=== PATIENT | male | born 1935 | race Caucasian/White ===

== ENCOUNTER 2018-09-06 17:06 | Observation (INO) | payer OTHER ==
--- OUTSIDE RECORDS SUMMARY | 2018-09-06 17:08 | XMS REPORT | Clinical Summary ---
:1935 Author Organization [facility] Address [address] [place] [address] Care Team Providers Name Role Phone Donald Bhatia MD Primary Care Provider Allergies Active Allergy Reactions Severity Noted Date Comments Fluorescein Hives, Itching 05/02/2016 High blood pressure Iodine Itching 05/02/2016 Medications Medication Sig Dispensed Refills Start Date End Date Status clopidogrel (PLAVIX) Take 75 mg by 0 Active 75 mg tablet mouth daily. aspirin (ECOTRIN) 81 Take 81 mg by 0 Active MG enteric coated mouth daily. tablet valsartan (DIOVAN) Take 320 mg by 0 Active 320 MG tablet mouth daily. insulin GLARGINE Inject 36 Units 0 Active (LANTUS) 100 unit/mL under the skin injection daily. amLODIPine (NORVASC) Take 1 tablet (5 30 tablet 11 03/11/2017 03/11/2018 5 mg tablet mg total) by mouth daily. Active Problems Problem Noted Date PVD (peripheral vascular disease) 02/13/2017 Claudication 02/13/2017 Essential hypertension 02/13/2017 Osteoarthritis of both knees 02/13/2017 Mixed hyperlipidemia 02/13/2017 Encounters Date Type Specialty Care Team Description 11/04/2017 Hospital Encounter Radiology after 09/05/2017 Social History Tobacco Use Types Packs/Day Years Used Date Former Smoker Cigarettes 3 50 Quit: 1987 Alcohol Use Drinks/Week oz/Week Comments Yes rare- beer and bourbon Sex Assigned at Date Recorded Not on file Job Start Date Occupation Industry Not on file Not on file Not on file Travel History Travel Start Travel End No recent travel history available. Last Filed Vital Signs Not on file Plan of Treatment Health Maintenance Due Date Last Done Comments SHINGLES VACCINES (1 of 2) 1985 PNEUMOCOCCAL POLYSACCHARIDE VACCINE AGE 65 AND OVER 2000 PNEUMOCOCCAL-13 2000 INFLUENZA VACCINE 03/04/2018 Implants Implanted Type Area Kennel Supervisor Device Shelf Model / Identifier Expiration Serial / Date Lot Silicone Sleeve, Style 70 / [id number], Sterile Ophthalmic N/A: LEBANESE 2020 [id number] / Implanted: Qty: 1 on 05/02/2016 by Donald Mortensen MD Knives & N/A OPHTHALMIC / Accessories [employer] [id number] (D.O.R.C) Strip Opthalmic Wide [employer]vd [employer] Sld Yaz 3.5mm - [id number] Surgical Left: LABTICIAN 09/02/2022 [id number] / Implanted: Qty: 1 on 05/02/2016 by Donald Mortensen MD Implants; Eye / Expanders; Extenders; Surgical Wires Particle H[employer] Absrbl Isabel 5gm Mph - [id number] Surgical N/A: MEDAFOR [id number] / Implanted: 02/25/2017 (Quantity not on file) Implants; N/A / Expanders; [id number] Extenders; Surgical Wires [place] Perph Vasclr Ptfe 1.2x10cm 1.65mm - [id number] Vascular Graft N/A: BARD PERIPHERAL 08/31/2021 [id number] / Implanted: 02/25/2017 (Quantity not on file) N/A VASCULAR / [id number] Results Not on fileafter 09/05/2017 Insurance Payer Benefit Plan / Group Subscriber ID Type Phone Address MEDICARE MEDICARE PART A AND B xxxxxxxxxx Medicare [place], [place] COMMERCIAL MISC MISC COMMERCIAL xxxxxxxxx Commercial (Home) [place] [address] Advance Directives Patient has advance care planning documents on file. For more information, please contact:[place] [address]
--- NOTE | 2018-09-06 17:56 | RAD REPORT ---
EXAM DESCRIPTION: RAD - Chest Single View - 09/06/2018 5:41 pm CLINICAL HISTORY: FEVER Chest pain. COMPARISON: No comparisons FINDINGS: Portable technique limits examination quality. Mildly prominent interstitial lung markings are seen. No focal consolidation detected. The heart is u pper limit of normal in size. No displaced fractures.Left shoulder arthroplasty noted. IMPRESSION: No acute intrathoracic process suspected.
[2018-09-06] MEDS ORDERED: IBUPROFEN 400 MG TAB ONE (18:24)
[2018-09-06] MEDS ORDERED: IBUPROFEN 200 MG TAB PO ONE (18:24)
[2018-09-06 18:36] LABS: Absolute Monocytes 0.8 K/uL (0.1-1.3); Absolute Neutrophil 8.3 K/uL (1.8-8.0); Basophils % 0.3 % (0-1.3); Eosinophils % 0.4 % (0-4.4); Hematocrit 48.5 % (39.6-49.0); Lymphocytes % 18.1 % (15.3-44.8); MPV 8.4 fL (7.6-11.3); Monocytes % 7.3 % (3.3-12.3); RBC Red Blood Cell Count 5.23 M/uL (4.33-5.43)
[2018-09-06 18:39] LABS: Protime INR 1.06
[2018-09-06] MEDS ORDERED: NA CHLORIDE 0.9% 1,000 ML ONE (18:43)
[2018-09-06 18:52] LABS: ALT/SGPT 19 U/L (12-78); AST/SGOT 14 U/L (15-37); Albumin 3.8 g/dL (3.4-5.0); Alkaline Phosphatase 91 U/L (45-117); BUN Blood Urea Nitrogen 10 mg/dL (7-18); Bicarbonate 29 mmol/L (21-32); Bilirubin Direct 0.3 mg/dL (0-0.2); CKMB Creatine Kinase MB < 1.0 ng/mL (0.3-3.6); Creatine Phosphokinase 53 U/L (39-308); Glucose Level 177 mg/dL (74-106); Lipase 36 U/L (73-393); Potassium 3.8 mmol/L (3.5-5.1); Protein, Total 7.6 g/dL (6.4-8.2); Sodium Level 136 mmol/L (136-145); Troponin (Emerg Dept Use Only) 0.02 ng/mL (0.0-0.045)
[2018-09-06 19:33] LABS: Urine Bacteria <20 /HPF (NONE SEEN); Urine Mucus MOD /HPF (NONE SEEN)
[2018-09-06 19:34] LABS: Urine Culture Reflex Order NOT NEEDED
[2018-09-06] MEDS ORDERED: NA CHLORIDE 0.9% 2,000 ML ONE (20:06)
[2018-09-06] MEDS ORDERED: CEFTRIAXONE/SWI 1gm 1 GM/10 ML SYR ONE (20:06)
[2018-09-06 20:36] LABS: Urine Blood 1+ (NEG); Urine Glucose NEGATIVE (NEG); Urine Protein 2+ (NEG)
--- NOTE | 2018-09-06 21:03 | ER ---
Nurse's Notes [facility] Name: Irineo Goldman Age: 82 yrs Sex: Male : 1935 Arrival Date: 09/06/2018 Time: 17:10 Bed 13 Private MD: Santiago Simpson T Diagnosis: Dehydration;Fever, unspecified;Acute streptococcal tonsillitis, unspecified;Altered mental status, unspecified Presentation: 09/06 17:20 Presenting complaint: states: headache, nausea, fever up to 100.3 F, frequent aa5 urination, cough, and confusion since last night. Pt currently A \\T\\ o x 4. Pt's daughter reports taking 1000mg Tylenol today at 1400. 17:20 Transition of care: patient was not received from another setting of care. Onset of aa5 symptoms was September 06, 2018. Risk Assessment: Do you want to hurt yourself or someone else? Patient reports no desire to harm self or others. Initial Sepsis Screen: Does the patient meet any 2 criteria? Temp <36.0*C (96.8*F)) or > 38.3*C (100.9*F). Altered Mental Status. Yes Does the patient have a suspected source of infection? Yes:. Care prior to arrival: None. 17:20 Method Of Arrival: Wheelchair aa5 17:20 Acuity: JESSIE 2 aa5 Triage Assessment: 18:02 General: Appears. ls4 18:10 Headache History: Denies prior headaches. General: Behavior is calm, cooperative. ls4 18:19 Pain: Pain currently is 8 out of 10 on a pain scale. Pain began THIS MORNING Also ls4 complains of no other associated symptoms. Neuro: Level of Consciousness is awake, alert, obeys commands, Oriented to person, place, time, situation, Representative are equal bilaterally Moves all extremities. Gait is steady, Speech is normal, Facial symmetry appears normal, Pupils are PERRLA, Reports headache frontal area, Denies weakness blurred vision dizziness, difficulty swallowing, paresthesias numbness photophobia diplopia. Cardiovascular: Denies chest pain, diaphoresis, fatigue, lightheadedness, nausea, palpitations, shortness of breath, syncope, vomiting. Respiratory: Reports cough that is non-productive, dry, Trachea midline Breath sounds are clear bilaterally. : Reports urinary frequency, since THIS MORNING. Musculoskeletal: No deficits noted. Historical: - Allergies: 17:22 Iodine; aa5 - PMHx: 17:22 Diabetes - IDDM; High Cholesterol; Hypertension; CVA; aa5 - PSHx: 17:22 L shoulder replacement; bilateral knee replacement; "vein surgery" R leg; aa5 - Immunization history:: Adult Immunizations unknown. - Ebola Screening: : No symptoms or risks identified at this time. - Social history:: Smoking status: Patient/guardian denies using tobacco. Screenin:55 Abuse screen: Denies threats or abuse. Denies injuries from another. Nutritional ls4 screening: No deficits noted. Tuberculosis screening: No symptoms or risk factors identified. Fall Risk None identified. Assessment: 18:22 General: SEE TRIAGE ASSESSMENT . Pain: Complains of pain in top of head Pain currently ls4 is 10 out of 10 on a pain scale. 21:26 Reassessment: Patient appears in no apparent distress at this time. Patient and/or ls4 family updated on plan of care and expected duration. Pain level reassessed. Patient is alert, oriented x 3, equal unlabored respirations, skin warm/dry/pink. Patient states symptoms have improved. Vital Signs: 17:29 BP 160 / 83; Pulse 101; Resp 18 S; Temp 101.3(TE); Pulse Ox 93% on R/A; Weight 100.7 kg aa5 (R); Pain 10/10; 18:38 BP 165 / 72; Pulse 78; Resp 16; Temp 100.1(O); Pulse Ox 98% on R/A; Pain 10/10; ls4 18:38 BP 168 / 89; Pulse 72; Resp 18; Temp 100.0; Pulse Ox 99% on R/A; Pain 10/10; ls4 21:25 BP 162 / 95; Pulse 73; Resp 16; Temp 99.9; Pulse Ox 100% on R/A; Pain 9/10; ls4 ED Course: 17:10 Patient arrived in ED. mr 17:10 Sanitago Simpson MD is Private Physician. mr 17:27 Arm band placed on. aa5 17:29 Triage completed. aa5 17:32 [facility] jr8 17:32 Rick Romeo MD is Attending Physician. jr8 17:40 Chest Single View XRAY In Process Unspecified. EDMS 17:50 Liliam Ceja, RN is Primary Nurse. ls4 18:10 No provider procedures requiring assistance completed. ls4 18:30 Initial lab(s) drawn, by me, sent to lab. First set of blood cultures drawn by me, mh5 Second set of blood cultures drawn by me, Urine collected: clean catch specimen, cloudy. 18:42 Patient has correct armband on for positive identification. Fall risk band placed. ls4 Placed in gown. Bed in low position. Side rails up X 1. monitoring analyst on. Pulse ox on. NIBP on. Pillow given. 18:42 Inserted saline lock: 20 gauge in left antecubital area, using aseptic technique. ls4 18:43 Inserted saline lock: 20 gauge in left antecubital area, using aseptic technique. Blood mh5 collected. 18:44 Patient has correct armband on for positive identification. Fall risk band placed. mh5 Placed in gown. Bed in low position. Call light in reach. Side rails up X2. Adult w/ patient. Pillow given. monitoring analyst on. Pulse ox on. NIBP on. 18:44 Flu Sent. mh5 18:44 Protime (+INR) Sent. mh5 18:44 Procalcitonin Sent. mh5 18:44 Lipase Sent. mh5 18:45 Liver (Hepatic) Function Sent. mh5 18:45 Creatine Phosphokinase Sent. mh5 18:45 Lactate Sent. mh5 18:45 CKMB Creatine Kinase MB Sent. mh5 18:45 CBC with Automated Diff Sent. mh5 18:45 Blood Culture Sent. mh5 18:45 Basic Metabolic Panel Sent. mh5 18:45 Urine Culture Sent. mh5 18:45 Urine Culture Sent. mh5 18:45 Basic Metabolic Panel Sent. mh5 18:45 Blood Culture Adult (2) Sent. 5 18:46 CBC with Diff Sent. mh5 18:46 Ckmb Sent. mh5 18:46 CPK Sent. mh5 18:46 Lactate Sent. mh5 18:46 LFT's Sent. mh5 18:46 Lipase Sent. mh5 18:46 Procalcitonin Sent. mh5 18:46 Protime (+inr) Sent. mh5 18:46 Troponin (emerg Dept Use Only) Sent. mh5 18:46 Urine Microscopic Only Sent. mh5 20:50 CT Head Brain wo Cont In Process Unspecified. EDMS 21:02 Cassandra Rodriguez MD is Hospitalizing Provider. jr8 22:26 Patient admitted, IV remains in place. ak1 Administered Medications: 18:18 Drug: Ibuprofen 600 mg Route: PO; ls4 18:40 Follow up: Response: No adverse reaction; No change in condition ls4 18:41 Drug: NS 0.9% (30 ml/kg) 30 ml/kg Route: IV; Rate: bolus; Site: left antecubital; ls4 22:24 Follow up: IV Status: Infusion continued upon admission ak1 19:56 Drug: Rocephin 1 grams Route: IV; Rate: calculated rate; Site: left antecubital; ls4 20:16 Follow up: IV Status: Completed infusion; IV Intake: 10ml ls4 21:12 Drug: Augmentin 875 mg Route: PO; ls4 22:24 Follow up: Response: No adverse reaction ak1 Point of Care Testing: Blood Glucose: 17:32 Blood Glucose: 184 mg/dL; aa5 Ranges: Intake: 20:16 IV: 10ml; Total: 10ml. ls4 Outcome: 21:02 Decision to Hospitalize by Provider. jr8 22:24 Admitted to Tele accompanied by nurse, via wheelchair, room 403, with chart. ak1 22:24 Condition: stable 22:24 Instructed on the need for admit. 23:09 Patient left the ED. ak1 Signatures: Dispatcher [employer] [facility] GautamMichelle mr KwongMaru RN RN [email or web address] Og Glez PA PA jr8 Randa Dallas RN RN ak1 Shana Velázquez Liliam Ferrer RN RN ls4 Corrections: (The following items were deleted from the chart) 17:32 17:20 Presenting complaint: states: headache, nausea, fever up to 100.3 F, aa5 frequent urination, cough, and confusion since last night. aa5 20:02 18:38 BP 165 / 72; Pulse 78bpm; Resp 16bpm; Pulse Ox 98% RA; Temp 98.4F Oral; Pain ls4 05/13; ls4
--- NOTE | 2018-09-06 21:03 | EDPHYS ---
Physician Documentation [facility] Name: Irieno Goldman Age: 82 yrs Sex: Male : 1935 Arrival Date: 09/06/2018 Time: 17:10 Bed 13 Private MD: Santiago Simpson T ED Physician Rick Romeo HPI: 09/06 18:02 This 82 yrs old Male presents to ER via Wheelchair with complaints of Fever, jr8 Headache, Urinary Problem, Confusion. 18:02 The patient reports fever, with an emergency department temperature of 101.3 degrees jr8 Fahrenheit. Onset: The symptoms/episode began/occurred acutely, yesterday, and became worse today, and became persistent today. Modifying factors: there are no obvious modifying factors. Associated signs and symptoms: Pertinent positives: cough, headache, frequency in urination, confusion . Severity of symptoms: At their worst the symptoms were moderate in the emergency department the symptoms have improved mildly. The patient has not experienced similar symptoms in the past. The patient has not recently seen a physician. Patient stated that he had fever that started yesterday and cough. Family stated that he has been using the bathroom to urinate about every 30 minutes. Has been trying to go to the garage to use the bathroom. Normally not confused. Denies abdominal pain, n/v/d, shortness of breath, or chest pain. Headache currently . Historical: - Allergies: 17:22 Iodine; aa5 - PMHx: 17:22 Diabetes - IDDM; High Cholesterol; Hypertension; CVA; aa5 - PSHx: 17:22 L shoulder replacement; bilateral knee replacement; "vein surgery" R leg; aa5 - Immunization history:: Adult Immunizations unknown. - Ebola Screening: : No symptoms or risks identified at this time. - Social history:: Smoking status: Patient/guardian denies using tobacco. ROS: 18:02 Eyes: Negative for injury, pain, redness, and discharge, ENT: Negative for injury, jr8 pain, and discharge, Neck: Negative for injury, pain, and swelling, Cardiovascular: Negative for chest pain, palpitations, and edema, Abdomen/GI: Negative for abdominal pain, nausea, vomiting, diarrhea, and constipation, Back: Negative for injury and pain, MS/Extremity: Negative for injury and deformity, Skin: Negative for injury, rash, and discoloration. 18:02 Constitutional: Positive for fever. 18:02 Respiratory: Positive for cough, Negative for dyspnea on exertion, shortness of breath, sputum production, wheezing. 18:02 Neuro: Positive for altered mental status, headache. Exam: 18:02 Eyes: Pupils equal round and reactive to light, extra-ocular motions intact. Lids and jr8 lashes normal. Conjunctiva and sclera are non-icteric and not injected. Cornea within normal limits. Periorbital areas with no swelling, redness, or edema. ENT: Nares patent. No nasal discharge, no septal abnormalities noted. Tympanic membranes are normal and external auditory canals are clear. Oropharynx with no redness, swelling, or masses, exudates, or evidence of obstruction, uvula midline. Mucous membranes moist. Neck: Trachea midline, no thyromegaly or masses palpated, and no cervical lymphadenopathy. Supple, full range of motion without nuchal rigidity, or vertebral point tenderness. No Meningismus. Cardiovascular: Regular rate and rhythm with a normal S1 and S2. No gallops, murmurs, or rubs. Normal PMI, no JVD. No pulse deficits. Respiratory: Lungs have equal breath sounds bilaterally, clear to auscultation and percussion. No rales, rhonchi or wheezes noted. No increased work of breathing, no retractions or nasal flaring. Abdomen/GI: Soft, non-tender, with normal bowel sounds. No distension or tympany. No guarding or rebound. No evidence of tenderness throughout. Back: No spinal tenderness. No costovertebral tenderness. Full range of motion. Skin: Warm, dry with normal turgor. Normal color with no rashes, no lesions, and no evidence of cellulitis. MS/ Extremity: Pulses equal, no cyanosis. Neurovascular intact. Full, normal range of motion. Neuro: Awake and alert, GCS 15, oriented to person, place, time, and situation. Cranial nerves II-XII grossly intact. Motor strength 5/5 in all extremities. Sensory grossly intact. Vital Signs: 17:29 BP 160 / 83; Pulse 101; Resp 18 S; Temp 101.3(TE); Pulse Ox 93% on R/A; Weight 100.7 kg aa5 (R); Pain 10/10; 18:38 BP 165 / 72; Pulse 78; Resp 16; Temp 100.1(O); Pulse Ox 98% on R/A; Pain 10/10; ls4 18:38 BP 168 / 89; Pulse 72; Resp 18; Temp 100.0; Pulse Ox 99% on R/A; Pain 10/10; ls4 21:25 BP 162 / 95; Pulse 73; Resp 16; Temp 99.9; Pulse Ox 100% on R/A; Pain 9/10; ls4 MDM: 17:32 Patient medically screened. [facility] 20:57 Data reviewed: vital signs, nurses notes, lab test result(s), EKG, radiologic studies, [facility] CT scan, plain films. Data interpreted: Pulse oximetry: on room air is 99 %. Interpretation: normal. Counseling: I had a detailed discussion with the patient and/or guardian regarding: the historical points, exam findings, and any diagnostic results supporting the discharge/admit diagnosis, lab results, radiology results, the need for further work-up and treatment in the hospital. Response to treatment: the patient's symptoms have mildly improved after treatment. Physician consultation: Cassandra Rodriguez MD was called at 21:02, was contacted at 21:02, regarding admission, to the medical/surgical unit. consult, patient's condition, and will see patient. 09/06 17:33 Order name: Urine Culture [facility] 09/06 17:33 Order name: Basic Metabolic Panel [facility] 09/06 17:33 Order name: Blood Culture Adult (2) [facility] 09/06 17:33 Order name: CBC with Diff [facility] 09/06 17:33 Order name: Ckmb [facility] 09/06 17:33 Order name: CPK [facility] 09/06 17:33 Order name: Lactate [facility] 09/06 17:33 Order name: LFT's [facility] 09/06 17:33 Order name: Lipase [facility] 09/06 17:33 Order name: Procalcitonin [facility] 09/06 17:33 Order name: Protime (+inr) [facility] 09/06 17:33 Order name: Ptt, Activated; Complete Time: 18:46 [facility] 09/06 17:33 Order name: Troponin (emerg Dept Use Only); Complete Time: 19:08 [facility] 09/06 17:33 Order name: Urine Microscopic Only; Complete Time: 19:46 [facility] 09/06 17:33 Order name: Urine Culture EDMS 09/06 17:33 Order name: Basic Metabolic Panel; Complete Time: 19:08 EDMS 09/06 17:33 Order name: Blood Culture EDIN 09/06 17:33 Order name: CBC with Automated Diff; Complete Time: 19:08 MS 09/06 17:33 Order name: CKMB Creatine Kinase MB; Complete Time: 19:08 EDMS 09/06 17:33 Order name: Creatine Phosphokinase; Complete Time: 19:08 EDMS 09/06 17:33 Order name: Lactate; Complete Time: 19:08 EDMS 09/06 17:34 Order name: Liver (Hepatic) Function; Complete Time: 19:08 EDMS 09/06 17:34 Order name: Lipase; Complete Time: 19:08 EDMS 09/06 17:34 Order name: Procalcitonin; Complete Time: 19:28 EDMS 09/06 17:34 Order name: Protime (+INR); Complete Time: 18:46 EDMS 09/06 17:48 Order name: Flu; Complete Time: 19:08 [facility] 09/06 19:18 Order name: Urine Dipstick--Ancillary (enter results); Complete Time: 20:39 2 09/06 19:46 Order name: Strep; Complete Time: 20:44 8 09/06 20:15 Order name: Flu ls4 09/06 20:16 Order name: Flu; Complete Time: 20:56 8 09/06 17:33 Order name: Chest Single View XRAY; Complete Time: 17:58 [facility] 09/06 17:33 Order name: Accucheck; Complete Time: 18:24 8 09/06 17:33 Order name: Cardiac monitoring; Complete Time: 18:24 8 09/06 17:33 Order name: EKG - Nurse/Tech; Complete Time: 18:24 8 09/06 17:33 Order name: IV Saline Lock - Large Bore; Complete Time: 18:24 8 09/06 17:33 Order name: Labs collected and sent; Complete Time: 18:24 8 09/06 17:33 Order name: O2 Per Protocol; Complete Time: 18:24 [facility] 09/06 17:33 Order name: O2 Sat Monitoring; Complete Time: 18:24 [facility] 09/06 17:33 Order name: Urine Dipstick-Ancillary (obtain specimen); Complete Time: 18:45 [facility] 09/06 19:46 Order name: Lumbar Puncture Consent; Complete Time: 20:14 [facility] 09/06 19:46 Order name: Lumbar Puncture Setup; Complete Time: 20:14 [facility] 09/06 20:18 Order name: CT Head Brain wo Cont; Complete Time: 21:09 [facility] 09/06 22:12 Order name: CONS Pharmacy Consult EDMS 09/06 22:12 Order name: Regular EDMS 09/06 22:12 Order name: CBC with Automated Diff EDMS 09/06 22:12 Order name: CBC with Automated Diff EDMS 09/06 22:12 Order name: Comprehensive Metabolic Panel EDMS 09/06 22:12 Order name: Comprehensive Metabolic Panel EDMS 09/06 22:53 Order name: Lactate Sepsis 2 HR Follow-up; Complete Time: 23:04 EDMS Administered Medications: 18:18 Drug: Ibuprofen 600 mg Route: PO; ls4 18:40 Follow up: Response: No adverse reaction; No change in condition ls4 18:41 Drug: NS 0.9% (30 ml/kg) 30 ml/kg Route: IV; Rate: bolus; Site: left antecubital; ls4 22:24 Follow up: IV Status: Infusion continued upon admission ak1 19:56 Drug: Rocephin 1 grams Route: IV; Rate: calculated rate; Site: left antecubital; ls4 20:16 Follow up: IV Status: Completed infusion; IV Intake: 10ml ls4 21:12 Drug: Augmentin 875 mg Route: PO; ls4 22:24 Follow up: Response: No adverse reaction ak1 Point of Care Testing: Blood Glucose: 17:32 Blood Glucose: 184 mg/dL; aa5 Ranges: Critical Glucose Levels:Adult <50 mg/dl or >400 mg/dl <40 mg/dl or >180 mg/dl Disposition: 09/07 09:21 Co-signature as Attending Physician, Rick Romeo MD I agree with the assessment and rodriguez plan of care. Disposition: 09/06/18 21:02 Hospitalization ordered by Cassandra Rodriguez for Observation. Preliminary diagnosis are Dehydration, Fever, unspecified, Acute streptococcal tonsillitis, unspecified, Altered mental status, unspecified. - Bed requested for Telemetry/MedSurg (observation). - Status is Observation. ak1 - Condition is Stable. - Problem is new. - Symptoms have improved. UTI on Admission? No Signatures: Dispatcher [employer] EDMS Hali Frank, RN RN Rick Addison MD MD cha Calderon, Audri, RN RN aa5 Og Glez PA PA jr8 Randa Dallas RN RN ak1 Liliam Ceja RN RN ls4 Corrections: (The following items were deleted from the chart) 09/06 20:07 17:33 Odom ordered. jr8 ls4 22:14 21:02 Hospitalization Ordered by Cassandra Rodriguez MD for Observation. Preliminary diagnosis is Dehydration; Fever, unspecified; Acute streptococcal tonsillitis, unspecified; Altered mental status, unspecified. Bed requested for Telemetry/MedSurg (observation). Status is Observation. Condition is Stable. Problem is new. Symptoms have improved. UTI on Admission? No. jr8 23:09 22:14 09/06/2018 21:02 Hospitalization Ordered by Cassandra Rodriguez MD for Observation. ak1 Preliminary diagnosis is Dehydration; Fever, unspecified; Acute streptococcal tonsillitis, unspecified; Altered mental status, unspecified. Bed requested for Telemetry/MedSurg (observation). Status is Observation. Condition is Stable. Problem is new. Symptoms have improved. UTI on Admission? No. mw
[2018-09-06] MEDS ORDERED: AMOX/K CLAV 875 MG TAB ONE (21:06)
--- NOTE | 2018-09-06 21:06 | RAD REPORT ---
EXAM DESCRIPTION: CT - Head Brain Wo Cont - 09/06/2018 8:49 pm CLINICAL HISTORY: HEADACHE Drowsiness, headache COMPARISON: Abdomen Pelvis W Contrast dated 07/31/2018MRA Head Wo Cont dated 05/21/2017; Brain Wo Cont dated 05/21/2017 TECHNIQUE: All CT scans are performed using dose optimization technique as appropriate and may inclu de automated exposure control or mA/KV adjustment according to patient size. FINDINGS: No intracranial hemorrhage, hydrocephalus or extra-axial fluid collection.Moderate general ized brain atrophy is present with moderate periventricular and deep white matter chronic microvascul ar ischemic changes.Gliosis is seen in the medial right posterior cerebral artery territory compatibl e with old infarct. The paranasal sinuses and mastoids are clear. The calvarium is intact. Heavy vertebrobasilar atherosc lerosis. IMPRESSION: No acute intracranial abnormality.
[2018-09-06] MEDS ORDERED: MORPHINE 2 MG/ML SYR IV PRN (22:09)
[2018-09-06] MEDS ORDERED: ONDANSETRON 4 MG/2 ML VIAL IV PRN (22:09)
[2018-09-06] MEDS ORDERED: ACETAMINOPHEN 500 MG TAB PO PRN (22:09)
[2018-09-06 23:52] VITALS: BMI 32.3
[2018-09-07 00:43] VITALS: O2SAT 100
[2018-09-07] MEDS: NA CHLORIDE 0.9% 1,000 ML IV SCH ×2 (00:51→12:20)
[2018-09-07] MEDS ORDERED: AMPICILLIN/SULBACTAM 3GM/VIAL ONE (01:16)
[2018-09-07] MEDS ORDERED: NA CHLORIDE 0.9% 200 ML ONE (01:41)
[2018-09-07] MEDS: AMPICILLIN/SULBACT 3 GM in NA CHLORIDE 0.9% 100 ML IVPB SCH ×4 (06:00→12:00)
[2018-09-07 06:25] LABS: Absolute Lymphocytes (CBC) 2.7 K/uL (0.7-4.9); Absolute Monocytes 0.9 K/uL (0.1-1.3); Absolute Neutrophil 3.5 K/uL (1.8-8.0); Basophils % 0.6 % (0-1.3); Eosinophils % 2.8 % (0-4.4); Hematocrit 40.9 % (39.6-49.0); MPV 8.5 fL (7.6-11.3); RBC Red Blood Cell Count 4.34 M/uL (4.33-5.43)
[2018-09-07 06:28] LABS: ALT/SGPT 16 U/L (12-78); AST/SGOT 10 U/L (15-37); Alkaline Phosphatase 69 U/L (45-117); BUN Blood Urea Nitrogen 11 mg/dL (7-18); Bicarbonate 28 mmol/L (21-32); Bilirubin Total 0.9 mg/dL (0.2-1.0); Glucose Level 178 mg/dL (74-106); Potassium 3.5 mmol/L (3.5-5.1); Protein, Total 6.1 g/dL (6.4-8.2); Sodium Level 141 mmol/L (136-145)
[2018-09-07] MEDS ORDERED: INSULIN GLARGINE 100 UNITS/ML SQ SCH (09:00)
[2018-09-07] MEDS ORDERED: NIFEDIPINE XL 60 MG TABLET PO SCH (09:00)
--- NOTE | 2018-09-07 09:03 | RAD REPORT ---
EXAM DESCRIPTION: RAD - Chest Pa And Lat (2 Views) - 09/07/2018 8:56 am CLINICAL HISTORY: strept. pharngitis, evaluate for pneumonia Chest pain. COMPARISON: Chest Single View dated 09/06/2018 TECHNIQUE: PA and lateral views of the chest were obtained. FINDINGS: The lungs are hyperexpanded compatible with COPD. The heart is mildly enlarged. Left total shoulder arthroplasty. IMPRESSION: COPD without acute process identified.
--- NOTE | 2018-09-07 09:26 | EKG ---
Test Date: 2018-09-06 Test Time: 19:32:54 Shelter Monitor: ANKIT MEASUREMENT RESULTS: Intervals: Rate: 74 WV: QRSD: 96 QT: 414 QTc: 459 Ovid: P: 69 WV: QRS: -2 T: -4 INTERPRETIVE STATEMENTS: Sinus rhythm with 2nd degree AV block (Mobitz I) with occasional premature ventricular complexes Nonspecific T wave abnormality Abnormal ECG Compared to ECG 01/09/2017 14:21:39 Ventricular premature complex(es) now present T-wave abnormality now present Sinus bradycardia no longer present Sinus arrhythmia no longer present First degree AV block no longer present ST (T wave) deviation no longer present Electronically Signed On 09-07-18 09:25:00 BANQUET STEWARD by Miquel Hunt
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
[2018-09-07 13:00] VITALS: BP 167/74; TEMP 98.9
--- NOTE | 2018-09-07 17:35 | P.DS ---
Admission Date: 09/06/18 Discharge Date: 09/07/18 Primary Care Provider: Dr. Trevizo; Cardiology-Dr. Glass Disposition: ROUTINE DISCHARGE Discharge Condition: GOOD Reason for Admission: strep pharyngitis with sepsis and encephalopathy Consultations: None Procedures: Medical problem list: Cough, congestion with mild altered mental status secondary to strep pharyngitis Diabetes mellitus type 2 Hypertension Obesity, BMI 32 Brief History of Present Illness: 82-year-old male presented with slight confusion with cough and congestion. Patient found to have strep pharyngitis. Patient was admitted for further evaluation. Hospital Course: Patient presented with cough, altered mental status secondary to strep pharyngitis. No sepsis identified. Chest x-ray unremarkable. CT head unremarkable. At discharge patient will continue with amoxicillin 500 mg 1 pill twice daily for 7 days and Tessalon Perles 100 mg 1 pill 3 times a day as needed for shortness of breath. Patient received IV fluids during his stay. Recommend to follow up with his PCP within 1 week to follow up this hospitalization. Patient has diabetes. Patient will continue with Lantus 30 units subcu daily. Recommend to maintain blood sugars less 140 fasting and less than 200 after meals. Further adjustment can be done by his PCP. Patient has hypertension. Patient will continue with nifedipine ER 60 mg daily. Recommend to maintain blood pressures less 150/80. Further adjustment can be done by his PCP. Vital Signs/Physical Exam: Temp Pulse Resp BP Pulse Ox 98.9 F 61 20 167/74 H 92 09/07/18 12:00 09/07/18 12:00 09/07/18 12:00 09/07/18 12:00 09/07/18 12:00 General: Alert, In no apparent distress, Oriented x3, Cooperative HEENT: Atraumatic Neck: Supple Respiratory: Clear to auscultation bilaterally, Normal air movement Cardiovascular: Normal pulses, Regular rate/rhythm Gastrointestinal: Normal bowel sounds, Soft and benign, Non-distended Musculoskeletal: No erythema, No tenderness, No warmth Integumentary: No tenderness/swelling, No erythema, No warmth, No cyanosis Neurological: Normal speech, Normal strength at 5/5 x4 extr, Normal tone, Normal affect Laboratory Data at Discharge: WBC 7.4 K/uL (4.3-10.9) D 09/07/18 05:28 Hgb 14.2 g/dL (13.6-17.9) 09/07/18 05:28 Hct 40.9 % (39.6-49.0) D 09/07/18 05:28 Plt Count 243 K/uL (152-406) 09/07/18 05:28 PT 12.5 SECONDS (9.5-12.5) 09/06/18 18:15 INR 1.06 09/06/18 18:15 APTT 35.3 SECONDS (24.3-36.9) 09/06/18 18:15 Sodium 141 mmol/L (136-145) 09/07/18 05:28 Potassium 3.5 mmol/L (3.5-5.1) 09/07/18 05:28 BUN 11 mg/dL (7-18) 09/07/18 05:28 Creatinine 0.80 mg/dL (0.55-1.3) 09/07/18 05:28 Glucose 178 mg/dL (74-106) H 09/07/18 05:28 Total Bilirubin 0.9 mg/dL (0.2-1.0) 09/07/18 05:28 AST 10 U/L (15-37) L 09/07/18 05:28 ALT 16 U/L (12-78) 09/07/18 05:28 Alkaline Phosphatase 69 U/L (45-117) 09/07/18 05:28 Lipase 36 U/L (73-393) L 09/06/18 18:15 Home Medications: Amoxicillin Trihydrate [Amoxil] 500 mg PO BID #14 capsule 09/07/18 Benzonatate [Tessalon Perle] 100 mg PO TID PRN #10 cap 09/07/18 Insulin Glargine Human [Lantus*] 30 unit SQ DAILY 09/07/18 Nifedipine [Nifedipine ER] 60 mg PO DAILY 09/07/18 New Medications: Amoxicillin Trihydrate [Amoxil] 500 mg PO BID #14 capsule Benzonatate [Tessalon Perle] 100 mg PO TID PRN #10 cap PRN Reason: Cough Patient Discharge Instructions: 1. Patient presented with cough, altered mental status secondary to strep pharyngitis. No sepsis identified. Chest x- ray unremarkable. CT head unremarkable. At discharge patient will continue with amoxicillin 500 mg 1 pill twice daily for 7 days and Tessalon Perles 100 mg 1 pill 3 times a day as needed for shortness of breath. Patient received IV fluids during his stay. Recommend to follow up with his PCP within 1 week to follow up this hospitalization. 2. Patient has diabetes. Patient will continue with Lantus 30 units subcu daily. Recommend to maintain blood sugars less 140 fasting and less than 200 after meals. Further adjustment can be done by his PCP. 3. Patient has hypertension. Patient will continue with nifedipine ER 60 mg daily. Recommend to maintain blood pressures less 150/80. Further adjustment can be done by his PCP. Diet: AHA Activity: Ad tana Followup: Santiago Simpson MD [Primary Care Provider] - 1 Week (Call to schedule an appointment) Time spent managing pt's care (in minutes): 55
== END 2018-09-07 14:54 | disposition home or self-care (01) ==
LOC: ER 17:06 → ERHOLD 22:24 → 4TH 22:52
PROVIDERS: ADMIT Hospitalist; ATTEND Hospitalist
DX: J02.0 Streptococcal pharyngitis (principal); R41.82 Altered mental status, unspecified; E11.9 Type 2 diabetes mellitus without complications; I10 Essential (primary) hypertension; E66.9 Obesity, unspecified; Z68.32 Body mass index [BMI] 32.0-32.9, adult; Z96.653 Presence of artificial knee joint, bilateral
CPT/HCPCS: 36415; 70450; 71045; 71046; 80048; 80053; 80076; 82550; 82553; 82962 ×3; 83605 ×2; 83690; 84145; 84484; 85025 ×2; 85610; 85730; 87040 ×2; 87081; 87088; 87804 ×4; 93005; 96361; 96365; 96366; 97162; 99285; G0378 ×2; J0295 ×2; J0696; J7030 ×3; 81003; 81015; 87086

== ENCOUNTER 2019-08-18 16:02 | Inpatient (IN) | payer OTHER ==
--- NOTE | 2019-08-18 11:13 | R.PREADM ---
SCREENING DATE AND TIME 08/17/2019 17:00 (DISPATCHER MAINTENANCE SERVICE) ANTICIPATED REHAB ADMISSION DATE 08/19/2019 REFERRING FACILITY [facility] REFERRAL DATE AND TIME 08/17/2019 17:00 (DISPATCHER MAINTENANCE SERVICE) ACUTE ADMIT DATE 07/14/2019 Previous Rehabilitation(s): No. 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 Praveen Monroe M.D. [id number] [id number] NAME BERLIN JAMES AD[address]ESS [address] [place] [address] [place] [place] [id number] DATE OF 1935 AGE 83 SSN# [id number] GENDER male MARITAL STATUS RACE white ADMIT FROM 02 - [facility] PRE-HOSPITAL LIVING SETTING 01 - Home (private home/apt. board/care, assisted living, long term, transitional living) HOME TYPE AND DETAILS Type of home: single family house # of steps within the residence: 0 # of levels in the residence: 1 # of steps to enter the residence: 0 PRE-HOSPITAL LIVING WITH Family/Relatives FAMILY SUPPORT Yes PRIMARY FAMILY CONTACT NAME Faby James PRIMARY FAMILY CONTACT PHONE PHONE PRIMARY FAMILY CONTACT ON ADM.? no IS PRIMARY FAMILY CONTACT AUTH. REP.? no 1ST EMERGENCY CONTACT Faby James 1ST CONTACT PHONE PHONE 1ST CONTACT ON ADM. no IS 1ST CONTACT AUTH. REP.? no PHONE 2ND CONTACT ON ADM.? no PATIENT EMPLOYMENT STATUS Retired (for age) PATIENT EMPLOYER No Employer PAYOR INFORMATION: 1ST PAYOR NAME MEDICARE 1ST PAYOR PHONE [phone] 1ST PAYOR INJURY/ILLNESS DUE TO ACCIDENT? No ANOTHER LIBERTARIAN RESPONSIBLE? No PRIMARY REHAB/ACUTE DIAGNOSIS: Severe PAD Critical Lower Limb Ischemia ONSET DATE 07/14/2019 REHAB IMPAIRMENT CATEGORY (ENRIQUE): 20 Miscellaneous (Misc) does NOT meet 60% rule PRIMARY DIAGNOSIS-RELATED SURGERIES: Venogram on 07/16/2019 1st ray right foot amputation on 07/19/2019 Right and Left Heart Cath only on 07/27/2019 Right and Left Coronary Angiogram on 07/30/2019 PCi on 08/03/2019 TAVR on 08/10/2019 Left heart catheterization on 08/10/2019 Aortic Root angiography Endocardial temporary pacing on 08/10/2019 Common femoral artery endarterectomy with patch repair on 08/10/2019 COMORBID REHAB/ACUTE DIAGNOSES: - N/A HTN CVA DMPAD ATRIAL FIBRILLATION GI BLEED SEPSIS CAD INTERVENTIONS: - CAD 02 sats Activity management Medications VS - Atrial Fibrillation Anticoagulation Medications VS RISK FOR COMPLICATIONS: - CAD CHF Cardiac Arrest OH Pain - Atrial Fibrillation CVA Heart failure Limb embolus SUMMARY OF ACUTE HOSPITALIZATION: Pt. is a 83 yo Right-handed white male. On 07/14/2019 he was admitted to [facility] with diagnosis Severe PAD. His impairment category is Medically Complex Conditions 17 - Circulatory Disorders (17.4). Pre-morbidly, Pt. was independent/mod-I in Locomotion, Balance, Social Cognition, Safety Awareness, T ransfers Control, Sphincter Control, Communication, Self-Care, and Endurance; and he had good Locomot ion, Safety Awareness, Balance, Transfers Control, Social Cognition, Sphincter Control, Self-Care, Co mmunication, and Endurance. Currently, he has deficits of Locomotion, Safety Awareness, Balance, Transfers Control, Self-Care, an d Endurance. Pt. is now referred to [facility] for acute in-patient rehabilitation in order to maximize patient's functional independence in activities of daily living, strength, ROM, and mobi lity. Patient has realistic goal of being discharged at assistance level 6-Luis to reside at Home with Fam jojo/Relatives. PAST MEDICAL HISTORY ATRIAL FIBRILLATION CAD CVA DMPAD GI BLEED HTN SEPSIS MEDICATION ALLERGIES: HYDRROCHLOROTHIAZIDE NORCO ENVIRONMENTAL ALLERGIES: Iodine - Substance Allergies None Known - Other Allergies None Known CODE STATUS: Full code WEIGHT/HEIGHT/BMI: WEIGHT 214 lbs HEIGHT 5' 11" BMI 29.8 DIET: - Diet Type Regular - Diet - Solid Texture Regular - Diet - Liquid Texture Regular - Tube Feed N/A REVIEW OF SYSTEMS: - Gen Alert and awake Lying in bed No apparent distress Oriented to: person, time, and place - Vital Signs Temperature: 98.1 F SBP/DBP: 145/74 Pulse: 67 Resp: 15 Vital signs stable, afebrile - CVS RRR VITAL SIGNS Temperature: 98.1 F SBP/DBP: 145/74 Pulse: 67 Resp: 15 Vital signs stable, afebrile MEDICATIONS/TREATMENT: Other- See attached MAR (Medication Administration Record). CURRENT SPHINCTER CONTROL: Pre-hospital bladder status: continent # of bladder accidents in the last 7 days prior to screenin Pre-hospital bowel status: continent # of bowel accidents in the last 7 days prior to screenin Last Bowel Movement Date: CURRENT LOCOMOTION STATUS: distance walked d feet DETAILED CURRENT FUNCTIONAL STATUS: - Bladder accident frequency: Ind - No accidents in the past 7 days - Bowel accident frequency: Ind - No accidents in the past 7 days - Walking score based on distance walked: 0(N/A) - Wheelchair score based on distance traveled: 0(N/A) QI SCORES: - Self-Care A. Eating 05-Setup or clean-up assistance B. Oral hygiene 05-Setup or clean-up assistance C. Toileting hygiene 03-Partial/moderate assistance E. Shower/bathe self 03-Partial/moderate assistance F. Upper body dressing 04-Supervision or touching assistance G. Lower body dressing 03-Partial/moderate assistance H. Putting on/taking off footwear 02-Substantial/maximal assistance - Mobility A. Roll left and right 03-Partial/moderate assistance B. Sit to lying 03-Partial/moderate assistance C. Lying to sitting on side of bed 03-Partial/moderate assistance D. Sit to stand 03-Partial/moderate assistance E. Chair/lrs-vs-fudgt transfer 03-Partial/moderate assistance F. Toilet transfer 03-Partial/moderate assistance G. Car transfer 10-Not attempted due to environmental limitations I. Walk 10 feet 03-Partial/moderate assistance J. Walk 50 feet with two turns 88-Not attempted due to medical condition or safety concerns K. Walk 150 feet 88-Not attempted due to medical condition or safety concerns L. Walking 10 feet on uneven surfaces 88-Not attempted due to medical condition or safety concerns M. 1 step (curb) 88-Not attempted due to medical condition or safety concerns N. 4 steps 88-Not attempted due to medical condition or safety concerns O. 12 steps 88-Not attempted due to medical condition or safety concerns P. Picking up object 88-Not attempted due to medical condition or safety concerns R. Wheel 50 feet with two turns 88-Not attempted due to medical condition or safety concerns S. Wheel 150 feet 88-Not attempted due to medical condition or safety concerns - Bladder and Bowel Bladder continence 0-Always continent Bowel continence 0-Always continent - Endurance Poor - Balance Poor - Safety Awareness Fair CURRENT FUNC. DEFICITS: Self-Care, Mobility, Endurance, Balance, and Safety Awareness CURRENT / PREVIOUS ASSISTIVE DEVICES: 3-in-1 Commode Dentures Glasses Hospital Bed Oxygen Rolling Walker Shower Chair Tub Bench Wheelchair CURRENT USE ASSISTIVE DEVICES: SCDs HISTORY OF FALLS. HAS THE PATIENT HAD TWO OR MORE FALLS IN THE PAST YEAR OR ANY FALL WITH INJURY IN T HE PAST YEAR?: No PRIOR SURGERY. DID THE PATIENT HAVE MAJOR SURGERY DURING THE 100 DAYS PRIOR TO ADMISSION?: No THERAPY NOTES FROM ACUTE CARE: Attached. SPECIAL NEEDS: - Safety Concerns Skin breakdown precautions needed due to skin breakdown risk PATIENT NEEDS ACTIVE AND ONGOING THERAPEUTIC INTERVENTION OF MULTIPLE THERAPY DISCIPLINES, INCLUDING: - Dietary and Nutrition Adequate Nutrition. Nutritional Education. Nutritional Supplements. PATIENT NEEDS CLOSE MEDICAL SUPERVISION BY A REHABILITATION PHYSICIAN FOR: Coordination of Treatment Team Medical and Co-Morbidity Management PATIENT REQUIRES 24X7 REHAB NURSING FOR MEDICAL AND FUNCTIONAL MGT. OF THE FOLLOWING DEFICITS: Disease Management Medication Management Patient/Family Education Providing Safe Environment PATIENT REQUIRES INTENSIVE, COORDINATED INTERDISCIPLINARY APPROACH TO REHAB: Arranging Home Equipment/Services Discharge Planning Family Intervention/Training Bleach Boiler Packer/Case Management PATIENT REHAB POTENTIAL: Pardeep JAMES is able and expected to receive 3 hours of individualized therapy daily on at least 5 of e very 7 days Pardeep JAMES's prognosis for significant practical improvement within a reasonable period of time appea rs Good Expected level of measurable improvement will be of a practical value to Pardeep JAMES's functional capa city or adaptations to impairments Has a viable Discharge Plan Medically appropriate; condition is sufficiently stable to participate in intensive rehab program DISCHARGE PLAN: - Estimated Length of Stay (days) 13. - Consensus on plan Discharge plan has been discussed with primary caregiver. Patient/Family is in agreement with the pamela n. Primary caregiver is in agreement with the plan. - Patient/Family Goals Return home with assistance. - Planned Living Setting Upon Discharge Home, to live with Family/Relatives. Transitional Living. RECOMMENDED CARE LEVEL: IRF RECOMMENDATION DETAILS: Recommended Admission to Comprehensive Rehabilitation Program to Increase Functional [place] SCREENER'S COMPLETENESS CONFIRMATION: - Screening Confirmation The patient data collection on this preadmission screening form is finished PHYSICIANS REVIEW AND ADMISSION DETERMINATION Admit - Based on my review of the Pre-Admission Screening results, in my medical judgment and experie nce, I concur with the findings and recommend admission to [facility], as this patient requires an IRF level of care. SIGNATURE PANEL: Clinical Liaison - [electronically] signed by Jessica Iraheta, Livestock Nutrition Territory Manager on 08/18/2019 at 11:07 (C ST) Clinical Liaison - [electronically] signed by Grant Cohen PT on 08/18/2019 at 11:09 (DISPATCHER MAINTENANCE SERVICE) Physician Reviewer - [electronically] signed by Dr. Praveen Monroe M.D. on 08/18/2019 at 11:12 (DISPATCHER MAINTENANCE SERVICE )
--- OUTSIDE RECORDS SUMMARY | 2019-08-18 16:14 | XMS REPORT ---
:1935 [facility] Address [facility] [place] [address] Care Team Providers Name Role Phone HARDIK BROOKE Unavailable Unavailable Problems This patient has no known problems. Allergies, Adverse Reactions, Alerts This patient has no known allergies or adverse reactions. Medications This patient has no known medications. Results Test Description Test Time Test Comments Text Results Atomic Results Result Comments POCT-GLUCOSE METER 2019-08-18 13:02:00 Test Item Value Reference Range Comments POC-GLUCOSE METER (BEAKER) 183 mg/dL 70-110 : TESTED AT [address] (test doqm=6176) [place], [id number]: [employer] [employer] [id number] for BRAN RAY POCT-GLUCOSE [id number] 08:21:00 Test Item Value Reference Range Comments POC-GLUCOSE METER (BEAKER) 116 mg/dL 70-110 : TESTED AT [address] (test onhg=2364) [facility], [address]: [employer] [id number]=[id number] for BRAN RAY [id number] 06:53:00 Test Item Value Reference Range Comments MAGNESIUM (BEAKER) (test ggai=294) 1.9 mg/dL 1.6-2.6 [employer] ID - LABASIC METABOLIC [id number] 06:53:00 Test Item Value Reference Range Comments SODIUM (BEAKER) (test 138 meq/L 136-145 skaz=226) POTASSIUM (BEAKER) (test 3.2 meq/L 3.5-5.1 dhxh=835) CHLORIDE (BEAKER) (test 100 meq/L 98-107 eqou=542) CO2 (BEAKER) (test 30 meq/L 22-29 ptui=376) BLOOD UREA NITROGEN 18 mg/dL 7-21 (BEAKER) (test shgc=700) CREATININE (BEAKER) (test 0.97 mg/dL 0.57-1.25 wuvs=350) GLUCOSE RANDOM (BEAKER) 104 mg/dL 70-105 (test tzbt=099) CALCIUM (BEAKER) (test 8.6 mg/dL 8.4-10.2 lceb=261) EGFR (BEAKER) (test 74 mL/min/1.73 sq m ESTIMATED GFR IS NOT ofkn=6396) ACCURATE CREATININE CLEARANCE IN PREDICTING GLOMERULAR FILTRATION RATE. ESTIMATED GFR IS NOT APPLICABLE FOR DIALYSIS PATIENTS. [employer] [employer] ID - [id number] (HEMOGRAM ONLY)2019-08-18 05:31:00 Test Item Value Reference Range Comments WHITE BLOOD CELL COUNT (BEAKER) (test cptm=665) 10.5 K/ L 3.5-10.5 RED BLOOD CELL COUNT (BEAKER) (test ncuq=170) 2.73 M/ L 4.63-6.08 HEMOGLOBIN (BEAKER) (test fzgd=365) 8.6 GM/DL 13.7-17.5 HEMATOCRIT (BEAKER) (test eift=166) 25.3 % 40.1-51.0 MEAN CORPUSCULAR VOLUME (BEAKER) (test bgvo=377) 92.7 fL 79.0-92.2 MEAN CORPUSCULAR HEMOGLOBIN (BEAKER) (test 31.5 pg 25.7-32.2 gkva=061) MEAN CORPUSCULAR HEMOGLOBIN CONC (BEAKER) (test 34.0 GM/DL 32.3-36.5 ffsm=487) RED CELL DISTRIBUTION WIDTH (BEAKER) (test 16.4 % 11.6-14.4 wksh=122) PLATELET COUNT (BEAKER) (test jqcb=786) 189 K/CU MM 150-450 MEAN PLATELET VOLUME (BEAKER) (test uldt=294) 9.4 fL 9.4-12.4 NUCLEATED RED BLOOD CELLS (BEAKER) (test 0 /100 WBC 0-0 thss=696) POCT-GLUCOSE [id number] 21:42:00 Test Item Value Reference Range Comments POC-GLUCOSE METER (BEAKER) 146 mg/dL 70-110 : [facility] [facility] (test znom=1195) [facility], [address]: [employer] JF=[id number] for JAE LINTON HEMOGLOBIN AND [id number] 16:14:00 Test Item Value Reference Range Comments HEMOGLOBIN (BEAKER) (test ijmb=527) 8.6 GM/DL 13.7-17.5 HEMATOCRIT (BEAKER) (test zslw=862) 26.2 % 40.1-51.0 [employer] [employer] ID - [id number] AND [id number] 15:23:00 Test Item Value Reference Range Comments HEMOGLOBIN (BEAKER) (test tpvx=775) 6.8 GM/DL 13.7-17.5 HEMATOCRIT (BEAKER) (test udlz=789) 20.7 % 40.1-51.0 [employer] ID - 6000POCT-GLUCOSE [id number] 11:14:00 Test Item Value Reference Range Comments POC-GLUCOSE METER (BEAKER) 202 mg/dL 70-110 : TESTED AT [address] (test xxcs=9171) [facility], [address]: [employer] XM=[id number] for DEWAYNE BURRELL FUNGUS CULTURE + [id number] 10:38:00 Test Item Value Reference Range Comments CULTURE (BEAKER) (test No fungus isolated in 28 days kavp=2027) FUNGUS SMEAR (BEAKER) (test No fungi seen jwgk=0978) FUNGUS CULTURE + [id number] 10:38:00 Test Item Value Reference Range Comments CULTURE (BEAKER) (test No fungus isolated in 28 days cbkp=8114) FUNGUS SMEAR (BEAKER) (test No fungi seen skqj=5386) POCT-GLUCOSE [id number] 08:10:00 Test Item Value Reference Range Comments POC-GLUCOSE METER (BEAKER) 111 mg/dL 70-110 : TESTED AT [address] (test exey=7132) [facility], [address]: [employer] WJ=[id number] for DEWAYNE BURRELL [id number] 06:51:00 Test Item Value Reference Range Comments MAGNESIUM (BEAKER) (test hebf=324) 1.9 mg/dL 1.6-2.6 [employer] [employer] ID - LABASIC METABOLIC [id number] 06:51:00 Test Item Value Reference Range Comments SODIUM (BEAKER) (test 138 meq/L 136-145 rcnt=588) POTASSIUM (BEAKER) (test 3.2 meq/L 3.5-5.1 rejd=890) CHLORIDE (BEAKER) (test 103 meq/L 98-107 mhze=143) CO2 (BEAKER) (test 28 meq/L 22-29 zxal=966) BLOOD UREA NITROGEN 17 mg/dL 7-21 (BEAKER) (test zhxh=509) CREATININE (BEAKER) (test 0.86 mg/dL 0.57-1.25 myyi=712) GLUCOSE RANDOM (BEAKER) 113 mg/dL 70-105 (test gsgt=370) CALCIUM (BEAKER) (test 8.7 mg/dL 8.4-10.2 uays=457) EGFR (BEAKER) (test 85 mL/min/1.73 sq m ESTIMATED GFR IS NOT jqmv=8332) ACCURATE CREATININE CLEARANCE IN PREDICTING GLOMERULAR FILTRATION RATE. ESTIMATED GFR IS NOT APPLICABLE FOR DIALYSIS PATIENTS. [employer] [employer] ID - LACBC (HEMOGRAM ONLY)2019-08-17 06:44:00 Test Item Value Reference Range Comments WHITE BLOOD CELL COUNT (BEAKER) (test enkw=628) 9.7 K/ L 3.5-10.5 RED BLOOD CELL COUNT (BEAKER) (test mpnb=080) 2.33 M/ L 4.63-6.08 HEMOGLOBIN (BEAKER) (test ptlr=279) 7.2 GM/DL 13.7-17.5 HEMATOCRIT (BEAKER) (test dmti=103) 22.5 % 40.1-51.0 MEAN CORPUSCULAR VOLUME (BEAKER) (test zocx=839) 96.6 fL 79.0-92.2 MEAN CORPUSCULAR HEMOGLOBIN (BEAKER) (test 30.9 pg 25.7-32.2 macg=174) MEAN CORPUSCULAR HEMOGLOBIN CONC (BEAKER) (test 32.0 GM/DL 32.3-36.5 iayf=188) RED CELL DISTRIBUTION WIDTH (BEAKER) (test 14.2 % 11.6-14.4 vdov=362) PLATELET COUNT (BEAKER) (test vbov=034) 210 K/CU MM 150-450 MEAN PLATELET VOLUME (BEAKER) (test eyxg=012) 9.7 fL 9.4-12.4 NUCLEATED RED BLOOD CELLS (BEAKER) (test 0 /100 WBC 0-0 kgwg=654) POCT-GLUCOSE [id number] 22:26:00 Test Item Value Reference Range Comments POC-GLUCOSE METER (BEAKER) 115 mg/dL 70-110 : TESTED AT [address] (test syvf=7344) [facility], [address]: [employer] YC=[id number] for LINTON, JAE POCT-GLUCOSE [id number] 20:27:00 Test Item Value Reference Range Comments POC-GLUCOSE METER (BEAKER) 199 mg/dL 70-110 : TESTED AT [address] (test fmqf=9121) [facility], [address]: [employer] UJ=[id number] for MORELOS, DAMEON POCT-GLUCOSE [id number] 15:28:00 Test Item Value Reference Range Comments POC-GLUCOSE METER (BEAKER) 110 mg/dL 70-110 : TESTED AT [address] (test zkgq=0075) [facility], [address]: [employer] WO=[id number] for MORELOS, DAMEON POCT-GLUCOSE [id number] 12:57:00 Test Item Value Reference Range Comments POC-GLUCOSE METER (BEAKER) 167 mg/dL 70-110 : TESTED AT [address] (test oigp=0380) [facility], [address]: [employer] [id number] for MORELOS, DAMEON [id number] 08:50:00 Test Item Value Reference Range Comments MAGNESIUM (BEAKER) (test xbax=699) 1.9 mg/dL 1.5-3.0 [employer] ID - [id number], [id number] 07:33:00 Test Item Value Reference Range Comments CALCIUM IONIZED (BEAKER) (test smqr=178) 1.04 mmol/L 1.12-1.27 PH, BLOOD (BEAKER) (test ifft=5373) 7.54 CBC W/PLT COUNT & AUTO [id number] 05:26:00 Test Item Value Reference Range Comments WHITE BLOOD CELL COUNT (BEAKER) (test ftka=821) 8.5 K/ L 3.5-10.5 RED BLOOD CELL COUNT (BEAKER) (test dimw=732) 2.39 M/ L 4.63-6.08 HEMOGLOBIN (BEAKER) (test bzsk=062) 7.5 GM/DL 13.7-17.5 HEMATOCRIT (BEAKER) (test xlne=258) 22.5 % 40.1-51.0 MEAN CORPUSCULAR VOLUME (BEAKER) (test pvos=412) 94.1 fL 79.0-92.2 MEAN CORPUSCULAR HEMOGLOBIN (BEAKER) (test 31.4 pg 25.7-32.2 gbcv=899) MEAN CORPUSCULAR HEMOGLOBIN CONC (BEAKER) (test 33.3 GM/DL 32.3-36.5 rgwj=440) RED CELL DISTRIBUTION WIDTH (BEAKER) (test 13.8 % 11.6-14.4 wgpp=611) PLATELET COUNT (BEAKER) (test tksr=898) 174 K/CU MM 150-450 MEAN PLATELET VOLUME (BEAKER) (test uzjq=180) 9.7 fL 9.4-12.4 NUCLEATED RED BLOOD CELLS (BEAKER) (test 0 /100 WBC 0-0 byes=235) NEUTROPHILS RELATIVE PERCENT (BEAKER) (test 70 % kshy=919) LYMPHOCYTES RELATIVE PERCENT (BEAKER) (test 13 % ymjn=550) MONOCYTES RELATIVE PERCENT (BEAKER) (test 8 % hbop=186) EOSINOPHILS RELATIVE PERCENT (BEAKER) (test 8 % gutr=281) BASOPHILS RELATIVE PERCENT (BEAKER) (test 1 % jklm=190) NEUTROPHILS ABSOLUTE COUNT (BEAKER) (test 5.94 K/ L 1.78-5.38 itdr=237) LYMPHOCYTES ABSOLUTE COUNT (BEAKER) (test 1.10 K/ L 1.32-3.57 holn=375) MONOCYTES ABSOLUTE COUNT (BEAKER) (test 0.66 K/ L 0.30-0.82 bpyc=009) EOSINOPHILS ABSOLUTE COUNT (BEAKER) (test 0.66 K/ L 0.04-0.54 foqj=097) BASOPHILS ABSOLUTE COUNT (BEAKER) (test 0.04 K/ L 0.01-0.08 anis=306) IMMATURE GRANULOCYTES-RELATIVE PERCENT (BEAKER) 1 % 0-1 (test fyvo=1409) POCT-GLUCOSE [id number] 21:51:00 Test Item Value Reference Range Comments POC-GLUCOSE METER (BEAKER) 164 mg/dL 70-110 : TESTED AT [facility] [address] [facility] (test pril=5331) [facility], [address]: [employer] UE=[id number] for LESLY SILVERIO POCT-GLUCOSE [id number] 17:32:00 Test Item Value Reference Range Comments POC-GLUCOSE METER (BEAKER) 155 mg/dL 70-110 : TESTED AT [facility] [address] (test vlnt=2822) [facility], [address]: [employer] HL=[id number] for BRAN RAY CBC W/PLT COUNT & AUTO [id number] 14:41:00 Test Item Value Reference Range Comments WHITE BLOOD CELL COUNT (BEAKER) (test yvih=341) 8.5 K/ L 3.5-10.5 RED BLOOD CELL COUNT (BEAKER) (test eydn=453) 2.40 M/ L 4.63-6.08 HEMOGLOBIN (BEAKER) (test akjf=488) 7.5 GM/DL 13.7-17.5 HEMATOCRIT (BEAKER) (test ecmh=662) 22.8 % 40.1-51.0 MEAN CORPUSCULAR VOLUME (BEAKER) (test wmpn=420) 95.0 fL 79.0-92.2 MEAN CORPUSCULAR HEMOGLOBIN (BEAKER) (test 31.3 pg 25.7-32.2 pvzq=219) MEAN CORPUSCULAR HEMOGLOBIN CONC (BEAKER) (test 32.9 GM/DL 32.3-36.5 bcas=054) RED CELL DISTRIBUTION WIDTH (BEAKER) (test 14.0 % 11.6-14.4 wurz=339) PLATELET COUNT (BEAKER) (test ejrv=894) 171 K/CU MM 150-450 MEAN PLATELET VOLUME (BEAKER) (test qvph=311) 9.3 fL 9.4-12.4 NUCLEATED RED BLOOD CELLS (BEAKER) (test 0 /100 WBC 0-0 mqcw=107) NEUTROPHILS RELATIVE PERCENT (BEAKER) (test 74 % incm=756) LYMPHOCYTES RELATIVE PERCENT (BEAKER) (test 12 % uvav=504) MONOCYTES RELATIVE PERCENT (BEAKER) (test 7 % gnes=482) EOSINOPHILS RELATIVE PERCENT (BEAKER) (test 6 % ppyr=401) BASOPHILS RELATIVE PERCENT (BEAKER) (test 1 % qrio=786) NEUTROPHILS ABSOLUTE COUNT (BEAKER) (test 6.24 K/ L 1.78-5.38 yfdl=522) LYMPHOCYTES ABSOLUTE COUNT (BEAKER) (test 1.05 K/ L 1.32-3.57 dswg=671) MONOCYTES ABSOLUTE COUNT (BEAKER) (test 0.56 K/ L 0.30-0.82 zhni=355) EOSINOPHILS ABSOLUTE COUNT (BEAKER) (test 0.47 K/ L 0.04-0.54 mwgg=883) BASOPHILS ABSOLUTE COUNT (BEAKER) (test 0.05 K/ L 0.01-0.08 vacd=573) IMMATURE GRANULOCYTES-RELATIVE PERCENT (BEAKER) 1 % 0-1 (test plxi=7748) POCT-GLUCOSE [id number] 13:24:00 Test Item Value Reference Range Comments POC-GLUCOSE METER (BEAKER) 168 mg/dL 70-110 : TESTED AT [facility] [address] [facility] (test sdqk=3297) [facility], [address]: [employer] BK=[id number] for BRAN RAY [id number] 07:46:00 Test Item Value Reference Range Comments FERRITIN (BEAKER) (test qifx=745) 597 ng/mL 5-275 [facility] [employer] ID - JANINA MVITAMIN B12 AND [id number] 07:46:00 Test Item Value Reference Range Comments VITAMIN B12 (BEAKER) (test pktu=651) 296 pg/mL 213-816 FOLATE (BEAKER) (test lfhu=275) 7.1 ng/mL >=7.0 [employer] [employer] ID - JANINA MCBC W/PLT COUNT & AUTO [id number] 07:34:00 Test Item Value Reference Range Comments WHITE BLOOD CELL COUNT (BEAKER) (test rdce=267) 8.9 K/ L 3.5-10.5 RED BLOOD CELL COUNT (BEAKER) (test jmei=883) 2.40 M/ L 4.63-6.08 HEMOGLOBIN (BEAKER) (test ntff=922) 7.6 GM/DL 13.7-17.5 HEMATOCRIT (BEAKER) (test mybz=002) 23.0 % 40.1-51.0 MEAN CORPUSCULAR VOLUME (BEAKER) (test nqsb=371) 95.8 fL 79.0-92.2 MEAN CORPUSCULAR HEMOGLOBIN (BEAKER) (test 31.7 pg 25.7-32.2 nhoz=618) MEAN CORPUSCULAR HEMOGLOBIN CONC (BEAKER) (test 33.0 GM/DL 32.3-36.5 mdep=280) RED CELL DISTRIBUTION WIDTH (BEAKER) (test 14.0 % 11.6-14.4 cbiz=585) PLATELET COUNT (BEAKER) (test hwua=076) 169 K/CU MM 150-450 MEAN PLATELET VOLUME (BEAKER) (test gqmj=109) 9.7 fL 9.4-12.4 NUCLEATED RED BLOOD CELLS (BEAKER) (test 0 /100 WBC 0-0 bspm=892) NEUTROPHILS RELATIVE PERCENT (BEAKER) (test 73 % ayfa=568) LYMPHOCYTES RELATIVE PERCENT (BEAKER) (test 12 % qoet=169) MONOCYTES RELATIVE PERCENT (BEAKER) (test 8 % hshd=199) EOSINOPHILS RELATIVE PERCENT (BEAKER) (test 6 % bkic=505) BASOPHILS RELATIVE PERCENT (BEAKER) (test 1 % ocfb=093) NEUTROPHILS ABSOLUTE COUNT (BEAKER) (test 6.57 K/ L 1.78-5.38 ijwn=415) LYMPHOCYTES ABSOLUTE COUNT (BEAKER) (test 1.08 K/ L 1.32-3.57 alre=566) MONOCYTES ABSOLUTE COUNT (BEAKER) (test 0.67 K/ L 0.30-0.82 rzzh=145) EOSINOPHILS ABSOLUTE COUNT (BEAKER) (test 0.52 K/ L 0.04-0.54 mhbp=608) BASOPHILS ABSOLUTE COUNT (BEAKER) (test 0.05 K/ L 0.01-0.08 ummk=354) IMMATURE GRANULOCYTES-RELATIVE PERCENT (BEAKER) 1 % 0-1 (test kjfi=2124) POCT-GLUCOSE [id number] 07:29:00 Test Item Value Reference Range Comments POC-GLUCOSE METER (BEAKER) 104 mg/dL 70-110 : TESTED AT [facility] [address] [facility] (test bmjc=1315) [facility], [address]: [employer] XO=[id number] for LEIA JOSE IRON, TIBC, % SAT. (WITHOUT FERRITIN)2019-08-15 07:11:00 Test Item Value Reference Range Comments IRON (BEAKER) (test xenw=222) 30.0 ug/dL 40.0-160.0 TOTAL IRON BINDING CAPACITY (BEAKER) (test 200 ug/dL 250-450 ttqc=105) IRON % SATURATION (2) (BEAKER) (test xafk=7956) 15 % 20-55 [facility] [employer] ID - JANINA [id number] 07:11:00 Test Item Value Reference Range Comments MAGNESIUM (BEAKER) (test cinp=323) 1.7 mg/dL 1.6-2.6 [employer] ID - JANINA [id number] 07:05:00 Test Item Value Reference Range Comments MAGNESIUM (BEAKER) (test rwvf=663) 1.8 mg/dL 1.6-2.6 [employer] ID - JANINA MBASIC METABOLIC [id number] 07:05:00 Test Item Value Reference Range Comments SODIUM (BEAKER) (test 135 meq/L 136-145 qlun=321) POTASSIUM (BEAKER) (test 3.2 meq/L 3.5-5.1 ddaj=151) CHLORIDE (BEAKER) (test 101 meq/L 98-107 kvwk=683) CO2 (BEAKER) (test 27 meq/L 22-29 awvh=006) BLOOD UREA NITROGEN 15 mg/dL 7-21 (BEAKER) (test zlgb=255) CREATININE (BEAKER) (test 0.83 mg/dL 0.57-1.25 yxaj=574) GLUCOSE RANDOM (BEAKER) 98 mg/dL 70-105 (test rirv=128) CALCIUM (BEAKER) (test 8.1 mg/dL 8.4-10.2 qhcl=097) EGFR (BEAKER) (test 88 mL/min/1.73 sq m ESTIMATED GFR IS NOT lanp=3822) ACCURATE CREATININE CLEARANCE IN PREDICTING GLOMERULAR FILTRATION RATE. ESTIMATED GFR IS NOT APPLICABLE FOR DIALYSIS PATIENTS. [facility] [employer] ID - JANINA MCALCIUM, [id number] 06:44:00 Test Item Value Reference Range Comments CALCIUM IONIZED (BEAKER) (test mjdb=750) 1.00 mmol/L 1.12-1.27 PH, BLOOD (BEAKER) (test yyel=1135) 7.56 POCT-GLUCOSE [id number] 21:24:00 Test Item Value Reference Range Comments POC-GLUCOSE METER (BEAKER) 173 mg/dL 70-110 : [facility] (test hdcw=4267) [facility], [address]: [employer] GE=[id number] for PITO ROWAN POCT-GLUCOSE [id number] 18:11:00 Test Item Value Reference Range Comments POC-GLUCOSE METER (BEAKER) 144 mg/dL 70-110 : TESTED AT [address] (test nvyz=8745) [facility], [address]: [employer] [id number] for BRAN RAY POCT-GLUCOSE [id number] 13:52:00 Test Item Value Reference Range Comments POC-GLUCOSE METER (BEAKER) 115 mg/dL 70-110 : TESTED AT [address] (test ddfh=3875) [facility], [address]: [employer] [id number] for ORBRAN PANDEY POCT-GLUCOSE [id number] 08:59:00 Test Item Value Reference Range Comments POC-GLUCOSE METER (BEAKER) 124 mg/dL 70-110 : TESTED AT [address] (test fgsx=9531) [facility], [address]: [employer] HS=[id number] for ORBRAN PANDEY [id number] 08:48:00 Test Item Value Reference Range Comments MAGNESIUM (BEAKER) (test euft=349) 1.9 mg/dL 1.6-2.6 [facility] [employer] ID Danay DURÁN FBASIC METABOLIC [id number] 08:48:00 Test Item Value Reference Range Comments SODIUM (BEAKER) (test 134 meq/L 136-145 qnxu=520) POTASSIUM (BEAKER) (test 3.6 meq/L 3.5-5.1 dnpf=373) CHLORIDE (BEAKER) (test 103 meq/L 98-107 aqvn=098) CO2 (BEAKER) (test 23 meq/L 22-29 pucv=318) BLOOD UREA NITROGEN 14 mg/dL 7-21 (BEAKER) (test rqbi=832) CREATININE (BEAKER) (test 0.81 mg/dL 0.57-1.25 lpjh=038) GLUCOSE RANDOM (BEAKER) 133 mg/dL 70-105 (test dbbb=528) CALCIUM (BEAKER) (test 8.0 mg/dL 8.4-10.2 rtsj=526) EGFR (BEAKER) (test 91 mL/min/1.73 sq m ESTIMATED GFR IS NOT euju=9934) ACCURATE CREATININE CLEARANCE IN PREDICTING GLOMERULAR FILTRATION RATE. ESTIMATED GFR IS NOT APPLICABLE FOR DIALYSIS PATIENTS. [facility] ID Danay DURÁN FCBC W/PLT COUNT & AUTO [id number] 08:24: 00 Test Item Value Reference Range Comments WHITE BLOOD CELL COUNT (BEAKER) (test ogyj=034) 8.2 K/ L 3.5-10.5 RED BLOOD CELL COUNT (BEAKER) (test kibs=844) 2.29 M/ L 4.63-6.08 HEMOGLOBIN (BEAKER) (test vjbq=959) 7.2 GM/DL 13.7-17.5 HEMATOCRIT (BEAKER) (test ahvs=104) 21.9 % 40.1-51.0 MEAN CORPUSCULAR VOLUME (BEAKER) (test qccx=319) 95.6 fL 79.0-92.2 MEAN CORPUSCULAR HEMOGLOBIN (BEAKER) (test 31.4 pg 25.7-32.2 auls=244) MEAN CORPUSCULAR HEMOGLOBIN CONC (BEAKER) (test 32.9 GM/DL 32.3-36.5 bjai=695) RED CELL DISTRIBUTION WIDTH (BEAKER) (test 14.2 % 11.6-14.4 vmwl=166) PLATELET COUNT (BEAKER) (test wqwr=558) 162 K/CU MM 150-450 MEAN PLATELET VOLUME (BEAKER) (test reow=760) 10.0 fL 9.4-12.4 NUCLEATED RED BLOOD CELLS (BEAKER) (test 0 /100 WBC 0-0 iidx=068) NEUTROPHILS RELATIVE PERCENT (BEAKER) (test 74 % wkos=148) LYMPHOCYTES RELATIVE PERCENT (BEAKER) (test 13 % bdov=244) MONOCYTES RELATIVE PERCENT (BEAKER) (test 8 % ktic=065) EOSINOPHILS RELATIVE PERCENT (BEAKER) (test 4 % ancr=787) BASOPHILS RELATIVE PERCENT (BEAKER) (test 1 % gevd=509) NEUTROPHILS ABSOLUTE COUNT (BEAKER) (test 6.07 K/ L 1.78-5.38 iozo=613) LYMPHOCYTES ABSOLUTE COUNT (BEAKER) (test 1.09 K/ L 1.32-3.57 nybj=302) MONOCYTES ABSOLUTE COUNT (BEAKER) (test 0.68 K/ L 0.30-0.82 asiv=816) EOSINOPHILS ABSOLUTE COUNT (BEAKER) (test 0.30 K/ L 0.04-0.54 qpke=204) BASOPHILS ABSOLUTE COUNT (BEAKER) (test 0.04 K/ L 0.01-0.08 okxa=046) IMMATURE GRANULOCYTES-RELATIVE PERCENT (BEAKER) 1 % 0-1 (test lglf=3318) CALCIUM, [id number] 08:22:00 Test Item Value Reference Range Comments CALCIUM IONIZED (BEAKER) (test kjjh=292) 1.03 mmol/L 1.12-1.27 PH, BLOOD (BEAKER) (test fifv=8865) 7.51 RAD, CHEST, 1 VIEW, NON [id number] 05:08:00Reason for exam:->s/p PPMShould this be performed at the bedside?->YesFINAL REPORT Chest one view. Clinical history: s/p PPM Comparison: Chest radiograph 08/12/2019. Technique: A single frontal view of the chest was obtained. Findings: The patient is status post TAVR.There is a left-sided pacemaker with leads overlying the right atrium and right ventricle.The cardiac silhouette is enlarged. The aorta is atherosclerotic. There is mild nonspecific diffuse interstitial prominence. There is no focal pulmonary consolidation, pleural effusion or pneumothorax. 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 Impression:Left pacemaker in place.Cardiomegaly.Mild nonspecific diffuse interstitial prominence. No focal pulmonary consolidation or pneumothorax. Signed: Marc Small Verified Date/Time: 08/14/2019 05:08:53 POCT- GLUCOSE [id number] 22:53:00 Test Item Value Reference Range Comments POC-GLUCOSE METER (BEAKER) 115 mg/dL 70-110 : TESTED AT [address] (test vjxq=7230) [facility], [id number]: [employer] [id number] for MARISELA FREEMAN POCT-GLUCOSE [id number] 15:40:00 Test Item Value Reference Range Comments POC-GLUCOSE METER (BEAKER) 113 mg/dL 70-110 : TESTED AT [address] (test ymqn=5420) [facility], [address]: [employer] [id number] for TARUN MESA POCT-GLUCOSE [id number] 12:44:00 Test Item Value Reference Range Comments POC-GLUCOSE METER (BEAKER) 76 mg/dL 70-110 : Notified RN/MD: TESTED AT (test mskb=3365) [facility] [address] [facility], [address]: [employer] [id number] for OBED KRAMER BASIC METABOLIC [id number] 09:27:00 Test Item Value Reference Range Comments SODIUM (BEAKER) (test 135 meq/L 136-145 knpz=077) POTASSIUM (BEAKER) (test 3.0 meq/L 3.5-5.1 yreb=122) CHLORIDE (BEAKER) (test 102 meq/L 98-107 kyox=072) CO2 (BEAKER) (test 26 meq/L 22-29 jnyl=467) BLOOD UREA NITROGEN 14 mg/dL 7-21 (BEAKER) (test cupe=319) CREATININE (BEAKER) (test 0.79 mg/dL 0.57-1.25 uawb=432) GLUCOSE RANDOM (BEAKER) 71 mg/dL 70-105 (test qzum=853) CALCIUM (BEAKER) (test 7.9 mg/dL 8.4-10.2 jttt=267) EGFR (BEAKER) (test 94 mL/min/1.73 sq m ESTIMATED GFR IS NOT jsqk=7196) ACCURATE CREATININE CLEARANCE IN PREDICTING GLOMERULAR FILTRATION RATE. ESTIMATED GFR IS NOT APPLICABLE FOR DIALYSIS PATIENTS. [employer] ID - [id number] 09:19:00 Test Item Value Reference Range Comments MAGNESIUM (BEAKER) (test lhbf=459) 1.7 mg/dL 1.6-2.6 [employer] ID - [id number] 07:09:00 Test Item Value Reference Range Comments MAGNESIUM (BEAKER) (test nqlb=128) 1.8 mg/dL 1.6-2.6 [employer] ID - JANINA MCALCIUM, [id number] 06:20:00 Test Item Value Reference Range Comments CALCIUM IONIZED (BEAKER) (test drqa=076) 1.00 mmol/L 1.12-1.27 PH, BLOOD (BEAKER) (test odyd=0699) 7.54 CBC W/PLT COUNT & AUTO [id number] 06:17:00 Test Item Value Reference Range Comments WHITE BLOOD CELL COUNT (BEAKER) (test cqae=181) 9.8 K/ L 3.5-10.5 RED BLOOD CELL COUNT (BEAKER) (test kwuy=321) 2.35 M/ L 4.63-6.08 HEMOGLOBIN (BEAKER) (test txwt=671) 7.4 GM/DL 13.7-17.5 HEMATOCRIT (BEAKER) (test rhba=365) 22.4 % 40.1-51.0 MEAN CORPUSCULAR VOLUME (BEAKER) (test jqdy=818) 95.3 fL 79.0-92.2 MEAN CORPUSCULAR HEMOGLOBIN (BEAKER) (test 31.5 pg 25.7-32.2 enpi=720) MEAN CORPUSCULAR HEMOGLOBIN CONC (BEAKER) (test 33.0 GM/DL 32.3-36.5 pqos=315) RED CELL DISTRIBUTION WIDTH (BEAKER) (test 14.0 % 11.6-14.4 hnbp=386) PLATELET COUNT (BEAKER) (test vzop=112) 175 K/CU MM 150-450 MEAN PLATELET VOLUME (BEAKER) (test lvnv=351) 10.0 fL 9.4-12.4 NUCLEATED RED BLOOD CELLS (BEAKER) (test 0 /100 WBC 0-0 ehqm=906) NEUTROPHILS RELATIVE PERCENT (BEAKER) (test 75 % rrjk=021) LYMPHOCYTES RELATIVE PERCENT (BEAKER) (test 12 % qakq=662) MONOCYTES RELATIVE PERCENT (BEAKER) (test 10 % vdzi=449) EOSINOPHILS RELATIVE PERCENT (BEAKER) (test 3 % glrn=719) BASOPHILS RELATIVE PERCENT (BEAKER) (test 0 % iuuj=523) NEUTROPHILS ABSOLUTE COUNT (BEAKER) (test 7.33 K/ L 1.78-5.38 cfaj=777) LYMPHOCYTES ABSOLUTE COUNT (BEAKER) (test 1.16 K/ L 1.32-3.57 pqgn=625) MONOCYTES ABSOLUTE COUNT (BEAKER) (test 0.94 K/ L 0.30-0.82 qspg=955) EOSINOPHILS ABSOLUTE COUNT (BEAKER) (test 0.24 K/ L 0.04-0.54 ajju=918) BASOPHILS ABSOLUTE COUNT (BEAKER) (test 0.03 K/ L 0.01-0.08 ryru=608) IMMATURE GRANULOCYTES-RELATIVE PERCENT (BEAKER) 1 % 0-1 (test cmqa=8759) POCT-GLUCOSE [id number] 20:52:00 Test Item Value Reference Range Comments POC-GLUCOSE METER (BEAKER) 137 mg/dL 70-110 : TESTED AT [facility] [address] [facility] (test qoiz=9282) [facility], [address]: [employer] [id number] for MADONNA BURKETT POCT-GLUCOSE [id number] 20:51:00 Test Item Value Reference Range Comments POC-GLUCOSE METER (BEAKER) 185 mg/dL 70-110 : TESTED AT [facility] [address] [facility] (test bapy=2894) [facility], [address]: [employer] Dipper/Quarter Backer FQ=[id number] for FORREST SEGOVIA BASIC METABOLIC [id number] 19:57:00 Test Item Value Reference Range Comments SODIUM (BEAKER) (test 133 meq/L 136-145 mmdp=946) POTASSIUM (BEAKER) (test 3.3 meq/L 3.5-5.1 omuc=373) CHLORIDE (BEAKER) (test 101 meq/L 98-107 ixvj=864) CO2 (BEAKER) (test 23 meq/L 22-29 wqbq=506) BLOOD UREA NITROGEN 14 mg/dL 7-21 (BEAKER) (test hwzl=643) CREATININE (BEAKER) (test 0.92 mg/dL 0.57-1.25 bmyj=185) GLUCOSE RANDOM (BEAKER) 189 mg/dL 70-105 (test tagv=192) CALCIUM (BEAKER) (test 7.8 mg/dL 8.4-10.2 dgzj=325) EGFR (BEAKER) (test 79 mL/min/1.73 sq m ESTIMATED GFR IS NOT frjl=5457) ACCURATE CREATININE CLEARANCE IN PREDICTING GLOMERULAR FILTRATION RATE. ESTIMATED GFR IS NOT APPLICABLE FOR DIALYSIS PATIENTS. [employer] ID - ROCOC TIMMONS, CHEST, 1 VIEW, NON [id number] 19:22:00FINAL REPORT Chest, portable AP view History: Shortness of breath Comparison:08/07/2019 IMPRESSION: The heart is within normal limits of size. There is mild interstitial edema. Bibasilar atelectasis is present. No focal consolidation, sizable pleural effusion, or thorax. Statuspost left shoulder arthroplasty. Signed: Jared Laieport Verified Date/Time: 08/12/2019 19:22:47 Reading Location: [address] Radiology Reading Room POCT- GLUCOSE [id number] 09:04:00 Test Item Value Reference Range Comments POC-GLUCOSE METER (BEAKER) 141 mg/dL 70-110 : TESTED AT [facility] [address] (test yacd=8102) [facility], [address]: [employer] Dipper/Quarter Backer [id number] for CURT NOYOLA BASIC METABOLIC [id number] 06:52:00 Test Item Value Reference Range Comments SODIUM (BEAKER) (test 134 meq/L 136-145 cdxe=714) POTASSIUM (BEAKER) (test 3.6 meq/L 3.5-5.1 sbeg=010) CHLORIDE (BEAKER) (test 105 meq/L 98-107 vwsd=652) CO2 (BEAKER) (test 22 meq/L 22-29 bcao=889) BLOOD UREA NITROGEN 14 mg/dL 7-21 (BEAKER) (test tyiv=656) CREATININE (BEAKER) (test 0.83 mg/dL 0.57-1.25 vsvq=734) GLUCOSE RANDOM (BEAKER) 127 mg/dL 70-105 (test bcab=333) CALCIUM (BEAKER) (test 7.9 mg/dL 8.4-10.2 zwet=930) EGFR (BEAKER) (test 88 mL/min/1.73 sq m ESTIMATED GFR IS NOT tuqb=1858) ACCURATE CREATININE CLEARANCE IN PREDICTING GLOMERULAR FILTRATION RATE. ESTIMATED GFR IS NOT APPLICABLE FOR DIALYSIS PATIENTS. [id number] 06:51:00 Test Item Value Reference Range Comments MAGNESIUM (BEAKER) (test zoww=996) 2.0 mg/dL 1.6-2.6 CALCIUM, [id number] 06:33:00 Test Item Value Reference Range Comments CALCIUM IONIZED (BEAKER) (test crpa=141) 1.02 mmol/L 1.12-1.27 PH, BLOOD (BEAKER) (test yxvh=4777) 7.52 CBC W/PLT COUNT & AUTO [id number] 06:33:00 Test Item Value Reference Range Comments WHITE BLOOD CELL COUNT (BEAKER) (test ubrp=951) 11.2 K/ L 3.5-10.5 RED BLOOD CELL COUNT (BEAKER) (test ajlp=040) 2.45 M/ L 4.63-6.08 HEMOGLOBIN (BEAKER) (test crqz=379) 7.7 GM/DL 13.7-17.5 HEMATOCRIT (BEAKER) (test kuim=359) 23.6 % 40.1-51.0 MEAN CORPUSCULAR VOLUME (BEAKER) (test yemn=488) 96.3 fL 79.0-92.2 MEAN CORPUSCULAR HEMOGLOBIN (BEAKER) (test 31.4 pg 25.7-32.2 blye=639) MEAN CORPUSCULAR HEMOGLOBIN CONC (BEAKER) (test 32.6 GM/DL 32.3-36.5 tsnm=616) RED CELL DISTRIBUTION WIDTH (BEAKER) (test 14.0 % 11.6-14.4 uqvz=675) PLATELET COUNT (BEAKER) (test rmwo=791) 178 K/CU MM 150-450 MEAN PLATELET VOLUME (BEAKER) (test alrr=720) 9.7 fL 9.4-12.4 NUCLEATED RED BLOOD CELLS (BEAKER) (test 0 /100 WBC 0-0 leer=363) NEUTROPHILS RELATIVE PERCENT (BEAKER) (test 76 % lelx=204) LYMPHOCYTES RELATIVE PERCENT (BEAKER) (test 11 % podf=471) MONOCYTES RELATIVE PERCENT (BEAKER) (test 10 % fykl=197) EOSINOPHILS RELATIVE PERCENT (BEAKER) (test 1 % uajv=490) BASOPHILS RELATIVE PERCENT (BEAKER) (test 0 % sfnj=143) NEUTROPHILS ABSOLUTE COUNT (BEAKER) (test 8.52 K/ L 1.78-5.38 dwub=020) LYMPHOCYTES ABSOLUTE COUNT (BEAKER) (test 1.19 K/ L 1.32-3.57 ziim=279) MONOCYTES ABSOLUTE COUNT (BEAKER) (test 1.15 K/ L 0.30-0.82 qrdc=989) EOSINOPHILS ABSOLUTE COUNT (BEAKER) (test 0.15 K/ L 0.04-0.54 mrwc=900) BASOPHILS ABSOLUTE COUNT (BEAKER) (test 0.03 K/ L 0.01-0.08 savh=289) IMMATURE GRANULOCYTES-RELATIVE PERCENT (BEAKER) 1 % 0-1 (test ozlz=8059) POCT-GLUCOSE [id number] 21:48:00 Test Item Value Reference Range Comments POC-GLUCOSE METER (BEAKER) 161 mg/dL 70-110 : TESTED AT [address] (test ygjx=2105) [facility], [address]: [employer] Dipper/Quarter Backer [id number] for JAE LINTON POCT-GLUCOSE [id number] 20:24:00 Test Item Value Reference Range Comments POC-GLUCOSE METER (BEAKER) 137 mg/dL 70-110 : TESTED AT [address] (test ccqa=4855) [facility], [address]: [employer] Dipper/Quarter Backer [id number]=[id number] for PAULINE DENNEY POCT-GLUCOSE [id number] 18:25:00 Test Item Value Reference Range Comments POC-GLUCOSE METER (BEAKER) 151 mg/dL 70-110 : TESTED AT [address] (test wlme=3797) [facility], [address]: [employer] Dipper/Quarter Backer [id number] for HOMERO BURKETTL POCT-GLUCOSE [id number] 11:54:00 Test Item Value Reference Range Comments POC-GLUCOSE METER (BEAKER) 230 mg/dL 70-110 : TESTED AT [address] (test tpbe=6960) [facility], [address]: [employer] Dipper/Quarter Backer [id number] for ColemanGabe POCT-GLUCOSE [id number] 07:58:00 Test Item Value Reference Range Comments POC-GLUCOSE METER (BEAKER) 132 mg/dL 70-110 : TESTED AT [address] (test feia=3147) [facility], [address]: [employer] Dipper/Quarter Backer [id number] for Gabe Cee CBC W/PLT COUNT & AUTO [id number] 06:57:00 Test Item Value Reference Range Comments WHITE BLOOD CELL COUNT (BEAKER) (test kygj=861) 12.6 K/ L 3.5-10.5 RED BLOOD CELL COUNT (BEAKER) (test oiwv=433) 2.66 M/ L 4.63-6.08 HEMOGLOBIN (BEAKER) (test gpjw=955) 8.2 GM/DL 13.7-17.5 HEMATOCRIT (BEAKER) (test qpcg=325) 26.0 % 40.1-51.0 MEAN CORPUSCULAR VOLUME (BEAKER) (test tbkf=509) 97.7 fL 79.0-92.2 MEAN CORPUSCULAR HEMOGLOBIN (BEAKER) (test 30.8 pg 25.7-32.2 floi=751) MEAN CORPUSCULAR HEMOGLOBIN CONC (BEAKER) (test 31.5 GM/DL 32.3-36.5 krtu=848) RED CELL DISTRIBUTION WIDTH (BEAKER) (test 13.9 % 11.6-14.4 vuto=904) PLATELET COUNT (BEAKER) (test ngta=461) 213 K/CU MM 150-450 MEAN PLATELET VOLUME (BEAKER) (test ejhi=438) 9.8 fL 9.4-12.4 NUCLEATED RED BLOOD CELLS (BEAKER) (test 0 /100 WBC 0-0 wrbq=387) NEUTROPHILS RELATIVE PERCENT (BEAKER) (test 74 % xydu=877) LYMPHOCYTES RELATIVE PERCENT (BEAKER) (test 12 % pdun=342) MONOCYTES RELATIVE PERCENT (BEAKER) (test 11 % twpc=153) EOSINOPHILS RELATIVE PERCENT (BEAKER) (test 1 % otti=902) BASOPHILS RELATIVE PERCENT (BEAKER) (test 1 % hsra=134) NEUTROPHILS ABSOLUTE COUNT (BEAKER) (test 9.37 K/ L 1.78-5.38 wyml=382) LYMPHOCYTES ABSOLUTE COUNT (BEAKER) (test 1.45 K/ L 1.32-3.57 uwuq=545) MONOCYTES ABSOLUTE COUNT (BEAKER) (test 1.42 K/ L 0.30-0.82 tqcb=214) EOSINOPHILS ABSOLUTE COUNT (BEAKER) (test 0.11 K/ L 0.04-0.54 ojol=125) BASOPHILS ABSOLUTE COUNT (BEAKER) (test 0.06 K/ L 0.01-0.08 bbdn=137) IMMATURE GRANULOCYTES-RELATIVE PERCENT (BEAKER) 1 % 0-1 (test ysqm=3721) [id number] 06:09:00 Test Item Value Reference Range Comments PHOSPHORUS (BEAKER) (test folw=146) 2.2 mg/dL 2.3-4.7 [id number] 06:09:00 Test Item Value Reference Range Comments MAGNESIUM (BEAKER) (test liam=792) 1.8 mg/dL 1.6-2.6 COMPREHENSIVE METABOLIC [id number] 06:09:00 Test Item Value Reference Range Comments TOTAL PROTEIN (BEAKER) 5.7 gm/dL 6.0-8.3 (test lqhb=980) ALBUMIN (BEAKER) (test 3.2 g/dL 3.5-5.0 mwpc=5593) ALKALINE PHOSPHATASE 84 U/L 40-150 (BEAKER) (test zlad=903) BILIRUBIN TOTAL (BEAKER) 0.6 mg/dL 0.2-1.2 (test miup=183) SODIUM (BEAKER) (test 137 meq/L 136-145 zcio=206) POTASSIUM (BEAKER) (test 3.8 meq/L 3.5-5.1 xixm=532) CHLORIDE (BEAKER) (test 106 meq/L 98-107 uain=708) CO2 (BEAKER) (test 23 meq/L 22-29 moyw=321) BLOOD UREA NITROGEN 13 mg/dL 7-21 (BEAKER) (test vwxg=099) CREATININE (BEAKER) (test 0.82 mg/dL 0.57-1.25 ieig=285) GLUCOSE RANDOM (BEAKER) 104 mg/dL 70-105 (test jdfk=339) CALCIUM (BEAKER) (test 8.0 mg/dL 8.4-10.2 xeuq=234) AST (SGOT) (BEAKER) (test 23 U/L 5-34 zadu=038) ALT (SGPT) (BEAKER) (test 15 U/L 6-55 tmld=865) EGFR (BEAKER) (test 90 mL/min/1.73 sq m ESTIMATED GFR IS NOT hnik=4032) ACCURATE CREATININE CLEARANCE IN PREDICTING GLOMERULAR FILTRATION RATE. ESTIMATED GFR IS NOT APPLICABLE FOR DIALYSIS PATIENTS. CALCIUM, [id number] 05:44:00 Test Item Value Reference Range Comments CALCIUM IONIZED (BEAKER) (test vgbb=896) 1.08 mmol/L 1.12-1.27 PH, BLOOD (BEAKER) (test ehhf=0466) 7.46 POCT-GLUCOSE [id number] 22:15:00 Test Item Value Reference Range Comments POC-GLUCOSE METER (BEAKER) 142 mg/dL 70-110 : TESTED AT [facility] [address] [facility] (test dmwf=3611) [facility], [address]: [employer] Dipper/Quarter Backer [id number] for BON NI BASIC METABOLIC [id number] 19:31:00 Test Item Value Reference Range Comments SODIUM (BEAKER) (test 134 meq/L 136-145 wwpw=130) POTASSIUM (BEAKER) (test 5.0 meq/L 3.5-5.1 Specimen moderately bmhr=130) hemolyzed CHLORIDE (BEAKER) (test 104 meq/L 98-107 bjws=707) CO2 (BEAKER) (test 22 meq/L 22-29 dxuy=733) BLOOD UREA NITROGEN 12 mg/dL 7-21 (BEAKER) (test evii=587) CREATININE (BEAKER) (test 0.84 mg/dL 0.57-1.25 Specimen moderately vptg=609) hemolyzed GLUCOSE RANDOM (BEAKER) 169 mg/dL 70-105 (test nczb=069) CALCIUM (BEAKER) (test 7.9 mg/dL 8.4-10.2 toop=570) EGFR (BEAKER) (test 87 mL/min/1.73 sq m ESTIMATED GFR IS NOT oeiz=4489) ACCURATE CREATININE CLEARANCE IN PREDICTING GLOMERULAR FILTRATION RATE. ESTIMATED GFR IS NOT APPLICABLE FOR DIALYSIS PATIENTS. POCT-GLUCOSE [id number] 17:07:00 Test Item Value Reference Range Comments POC-GLUCOSE METER (BEAKER) 165 mg/dL 70-110 : TESTED AT [facility] [address] [facility] (test psia=1950) [facility], [address]: [employer] Dipper/Quarter Backer [phone]=[id number] for KATE POLANCO POTASSIUM-STAT [id number] 12:29:00 Test Item Value Reference Range Comments POTASSIUM (BEAKER) (test tgfh=868) 3.8 meq/L 3.6-5.5 BLOOD GAS, [id number] 12:29:00 Test Item Value Reference Range Comments PH ARTERIAL (BEAKER) (test vlas=966) 7.41 7.35-7.45 PCO2 ARTERIAL (BEAKER) (test pvmr=639) 35 mmHg 35-45 PO2 ARTERIAL (BEAKER) (test xhyx=665) 248 mmHg 80-90 O2 SATURATION ARTERIAL (BEAKER) (test ftzs=660) 99.6 % 96.0-97.0 HCO3 ARTERIAL (BEAKER) (test jkii=065) 22 mmol/L 21-29 BASE EXCESS ARTERIAL (BEAKER) (test xvil=123) -2.5 mmol/L -2.0-3.0 PATIENT TEMPERATURE (BEAKER) (test wyxb=5228) 37.0 C FIO2 (BEAKER) (test edcg=2517) 100.0 % SODIUM NA-STAT [id number] 12:29:00 Test Item Value Reference Range Comments SODIUM (BEAKER) (test evqv=896) 134 meq/L 135-148 GLUCOSE-STAT [id number] 12:29:00 Test Item Value Reference Range Comments GLUCOSE RANDOM (BEAKER) (test iqrd=543) 144 mg/dL 70-110 HGB/HCT (H&H) - STAT [id number] 12:29:00 Test Item Value Reference Range Comments HEMOGLOBIN (BEAKER) (test rvzz=829) 9.4 g/dL 13.0-16.8 HEMATOCRIT (BEAKER) (test cjea=374) 28.0 % 40.0-50.0 CALCIUM, [id number] 12:29:00 Test Item Value Reference Range Comments CALCIUM IONIZED (BEAKER) (test jxsw=967) 1.02 mmol/L 1.12-1.27 PH, BLOOD (BEAKER) (test hcow=0023) 7.41 [id number] 06:09:00 Test Item Value Reference Range Comments ACTIVATED CLOTTING TIME 301 sec Reference Range: 74-137 (BEAKER) (test xmwb=599) seconds, Baseline/TESTED AT [place] [address] [id number] 06:09:00 Test Item Value Reference Range Comments ACTIVATED CLOTTING TIME 213 sec Reference Range: 74-137 (BEAKER) (test rieg=646) seconds, Baseline/TESTED AT [address] [address] [id number] 06:09:00 Test Item Value Reference Range Comments ACTIVATED CLOTTING TIME 301 sec Reference Range: 74-137 (BEAKER) (test mbpv=312) seconds, Baseline/TESTED AT [address] [address] CALCIUM, [id number] 05:41:00 Test Item Value Reference Range Comments CALCIUM IONIZED (BEAKER) (test bfwa=310) 1.12 mmol/L 1.12-1.27 PH, BLOOD (BEAKER) (test xwjv=6791) 7.50 [id number] 05:01:00 Test Item Value Reference Range Comments PHOSPHORUS (BEAKER) (test nttk=469) 2.6 mg/dL 2.3-4.7 [id number] 05:01:00 Test Item Value Reference Range Comments MAGNESIUM (BEAKER) (test gjeo=085) 1.8 mg/dL 1.6-2.6 BASIC METABOLIC [id number] 05:01:00 Test Item Value Reference Range Comments SODIUM (BEAKER) (test 134 meq/L 136-145 ddbm=780) POTASSIUM (BEAKER) (test 3.7 meq/L 3.5-5.1 crde=978) CHLORIDE (BEAKER) (test 103 meq/L 98-107 nsqc=612) CO2 (BEAKER) (test 22 meq/L 22-29 yxha=469) BLOOD UREA NITROGEN 12 mg/dL 7-21 (BEAKER) (test lgjy=734) CREATININE (BEAKER) (test 0.92 mg/dL 0.57-1.25 gsru=222) GLUCOSE RANDOM (BEAKER) 126 mg/dL 70-105 (test pppc=814) CALCIUM (BEAKER) (test 8.2 mg/dL 8.4-10.2 gwuy=983) EGFR (BEAKER) (test 79 mL/min/1.73 sq m ESTIMATED GFR IS NOT bixq=8378) ACCURATE CREATININE CLEARANCE IN PREDICTING GLOMERULAR FILTRATION RATE. ESTIMATED GFR IS NOT APPLICABLE FOR DIALYSIS PATIENTS. [id number] 04:53:00 Test Item Value Reference Range Comments PARTIAL THROMBOPLASTIN TIME (BEAKER) (test 81.7 seconds 22.5-36.0 mrml=432) CBC W/PLT COUNT & AUTO [id number] 04:33:00 Test Item Value Reference Range Comments WHITE BLOOD CELL COUNT (BEAKER) (test tucl=423) 9.7 K/ L 3.5-10.5 RED BLOOD CELL COUNT (BEAKER) (test rcie=184) 2.79 M/ L 4.63-6.08 HEMOGLOBIN (BEAKER) (test svky=507) 8.8 GM/DL 13.7-17.5 HEMATOCRIT (BEAKER) (test gfvj=387) 26.4 % 40.1-51.0 MEAN CORPUSCULAR VOLUME (BEAKER) (test oqvt=632) 94.6 fL 79.0-92.2 MEAN CORPUSCULAR HEMOGLOBIN (BEAKER) (test 31.5 pg 25.7-32.2 xkjq=957) MEAN CORPUSCULAR HEMOGLOBIN CONC (BEAKER) (test 33.3 GM/DL 32.3-36.5 bndd=569) RED CELL DISTRIBUTION WIDTH (BEAKER) (test 13.4 % 11.6-14.4 uqnr=427) PLATELET COUNT (BEAKER) (test mrem=506) 249 K/CU MM 150-450 MEAN PLATELET VOLUME (BEAKER) (test hlah=098) 10.2 fL 9.4-12.4 NUCLEATED RED BLOOD CELLS (BEAKER) (test 0 /100 WBC 0-0 ltjl=545) NEUTROPHILS RELATIVE PERCENT (BEAKER) (test 67 % ufnd=717) LYMPHOCYTES RELATIVE PERCENT (BEAKER) (test 14 % nxif=618) MONOCYTES RELATIVE PERCENT (BEAKER) (test 11 % hjwd=182) EOSINOPHILS RELATIVE PERCENT (BEAKER) (test 6 % ubxr=276) BASOPHILS RELATIVE PERCENT (BEAKER) (test 1 % kpcu=516) NEUTROPHILS ABSOLUTE COUNT (BEAKER) (test 6.46 K/ L 1.78-5.38 hioc=156) LYMPHOCYTES ABSOLUTE COUNT (BEAKER) (test 1.40 K/ L 1.32-3.57 ddvz=310) MONOCYTES ABSOLUTE COUNT (BEAKER) (test 1.02 K/ L 0.30-0.82 bskt=425) EOSINOPHILS ABSOLUTE COUNT (BEAKER) (test 0.58 K/ L 0.04-0.54 vbjw=522) BASOPHILS ABSOLUTE COUNT (BEAKER) (test 0.06 K/ L 0.01-0.08 enes=181) IMMATURE GRANULOCYTES-RELATIVE PERCENT (BEAKER) 2 % 0-1 (test brsr=3203) POCT-GLUCOSE [id number] 21:53:00 Test Item Value Reference Range Comments POC-GLUCOSE METER (BEAKER) 166 mg/dL 70-110 : TESTED AT [facility] [address] [facility] (test hoht=3107) [facility], [address]: [employer]pper/Quarter Backer WL=[id number] for BON NI POCT-GLUCOSE [id number] 17:42:00 Test Item Value Reference Range Comments POC-GLUCOSE METER (BEAKER) 145 mg/dL 70-110 : TESTED AT [facility] [address] [facility] (test ukhy=3136) [facility], [address]: [employer]pper/Quarter Backer YC=[id number] for KATE POLANCO POCT-GLUCOSE [id number] 12:22:00 Test Item Value Reference Range Comments POC-GLUCOSE METER (BEAKER) 139 mg/dL 70-110 : TESTED AT [facility] [address] [facility] (test embt=6127) [facility], [address]: [employer]Quarter Backer [id number] for KATE POLANCO POCT-GLUCOSE [id number] 08:26:00 Test Item Value Reference Range Comments POC-GLUCOSE METER (BEAKER) 84 mg/dL 70-110 : TESTED AT [facility] [address] [facility] (test bwap=1699) [facility], [address]: [employer]/Quarter Backer [id number] for KATE POLANCO [id number] 04:31:00 Test Item Value Reference Range Comments MAGNESIUM (BEAKER) (test 1.8 mg/dL 1.6-2.6 Specimen slightly hemolyzed nmuo=970) BASIC METABOLIC [id number] 04:31:00 Test Item Value Reference Range Comments SODIUM (BEAKER) (test 134 meq/L 136-145 zdbf=293) POTASSIUM (BEAKER) (test 4.2 meq/L 3.5-5.1 Specimen slightly dmst=381) hemolyzed CHLORIDE (BEAKER) (test 103 meq/L 98-107 uanq=967) CO2 (BEAKER) (test 23 meq/L 22-29 okjk=334) BLOOD UREA NITROGEN 13 mg/dL 7-21 (BEAKER) (test licf=822) CREATININE (BEAKER) (test 1.03 mg/dL 0.57-1.25 Specimen slightly elwb=008) hemolyzed GLUCOSE RANDOM (BEAKER) 111 mg/dL 70-105 (test yvrw=457) CALCIUM (BEAKER) (test 8.4 mg/dL 8.4-10.2 erfy=225) EGFR (BEAKER) (test 69 mL/min/1.73 sq m ESTIMATED GFR IS NOT suqy=5861) ACCURATE CREATININE CLEARANCE IN PREDICTING GLOMERULAR FILTRATION RATE. ESTIMATED GFR IS NOT APPLICABLE FOR DIALYSIS PATIENTS. CALCIUM, [id number] 03:02:00 Test Item Value Reference Range Comments CALCIUM IONIZED (BEAKER) (test yeqm=306) 1.15 mmol/L 1.12-1.27 PH, BLOOD (BEAKER) (test siui=6193) 7.47 [id number] 02:59:00 Test Item Value Reference Range Comments PARTIAL THROMBOPLASTIN TIME (BEAKER) (test 77.9 seconds 22.5-36.0 nfhj=480) CBC W/PLT COUNT & AUTO [id number] 02:46:00 Test Item Value Reference Range Comments WHITE BLOOD CELL COUNT (BEAKER) (test xwia=509) 9.7 K/ L 3.5-10.5 RED BLOOD CELL COUNT (BEAKER) (test ypfv=844) 2.86 M/ L 4.63-6.08 HEMOGLOBIN (BEAKER) (test mehb=819) 9.1 GM/DL 13.7-17.5 HEMATOCRIT (BEAKER) (test wers=776) 27.2 % 40.1-51.0 MEAN CORPUSCULAR VOLUME (BEAKER) (test viso=844) 95.1 fL 79.0-92.2 MEAN CORPUSCULAR HEMOGLOBIN (BEAKER) (test 31.8 pg 25.7-32.2 obng=385) MEAN CORPUSCULAR HEMOGLOBIN CONC (BEAKER) (test 33.5 GM/DL 32.3-36.5 xjfm=243) RED CELL DISTRIBUTION WIDTH (BEAKER) (test 13.3 % 11.6-14.4 ratd=553) PLATELET COUNT (BEAKER) (test rffd=718) 260 K/CU MM 150-450 MEAN PLATELET VOLUME (BEAKER) (test yatb=829) 10.0 fL 9.4-12.4 NUCLEATED RED BLOOD CELLS (BEAKER) (test 0 /100 WBC 0-0 twgu=274) NEUTROPHILS RELATIVE PERCENT (BEAKER) (test 65 % qqac=634) LYMPHOCYTES RELATIVE PERCENT (BEAKER) (test 17 % jdun=615) MONOCYTES RELATIVE PERCENT (BEAKER) (test 9 % umlf=168) EOSINOPHILS RELATIVE PERCENT (BEAKER) (test 7 % yemk=497) BASOPHILS RELATIVE PERCENT (BEAKER) (test 1 % ykob=870) NEUTROPHILS ABSOLUTE COUNT (BEAKER) (test 6.27 K/ L 1.78-5.38 eqxh=601) LYMPHOCYTES ABSOLUTE COUNT (BEAKER) (test 1.66 K/ L 1.32-3.57 sbke=911) MONOCYTES ABSOLUTE COUNT (BEAKER) (test 0.86 K/ L 0.30-0.82 nhii=403) EOSINOPHILS ABSOLUTE COUNT (BEAKER) (test 0.65 K/ L 0.04-0.54 eoge=650) BASOPHILS ABSOLUTE COUNT (BEAKER) (test 0.05 K/ L 0.01-0.08 vgdn=377) IMMATURE GRANULOCYTES-RELATIVE PERCENT (BEAKER) 2 % 0-1 (test dzie=6291) POCT-GLUCOSE [id number] 21:19:00 Test Item Value Reference Range Comments POC-GLUCOSE METER (BEAKER) 137 mg/dL 70-110 : Notified RN/MD: TESTED AT (test mrqy=3323) [address], [address]: [employer] [id number]=[id number] for BENJAMIN OLIVAS POCT-GLUCOSE [id number] 17:42:00 Test Item Value Reference Range Comments POC-GLUCOSE METER (BEAKER) 147 mg/dL 70-110 : TESTED AT [address] (test utej=3197) [facility], [address]: [employer] MI=[id number] for KATE POLANCO [id number] 12:42:00 Test Item Value Reference Range Comments PARTIAL THROMBOPLASTIN TIME (BEAKER) (test 80.9 seconds 22.5-36.0 phgk=374) POCT-GLUCOSE [id number] 12:31:00 Test Item Value Reference Range Comments POC-GLUCOSE METER (BEAKER) 125 mg/dL 70-110 : TESTED AT [address] (test yhcp=8785) [facility], [address]: [employer] JA=[id number] for COLLIN KATE POCT-GLUCOSE [id number] 08:02:00 Test Item Value Reference Range Comments POC-GLUCOSE METER (BEAKER) 89 mg/dL 70-110 : TESTED AT [address] (test xigb=3159) [facility], [address]: [employer] [id number] for KATE POLANCO [id number] 07:42:00 Test Item Value Reference Range Comments MAGNESIUM (BEAKER) (test alxl=694) 2.4 mg/dL 1.6-2.6 BASIC METABOLIC [id number] 04:48:00 Test Item Value Reference Range Comments SODIUM (BEAKER) (test 134 meq/L 136-145 mpxq=626) POTASSIUM (BEAKER) (test 3.7 meq/L 3.5-5.1 shzt=259) CHLORIDE (BEAKER) (test 103 meq/L 98-107 jglz=327) CO2 (BEAKER) (test 23 meq/L 22-29 hjxf=223) BLOOD UREA NITROGEN 13 mg/dL 7-21 (BEAKER) (test awyi=560) CREATININE (BEAKER) (test 1.00 mg/dL 0.57-1.25 pabk=153) GLUCOSE RANDOM (BEAKER) 80 mg/dL 70-105 (test zuxm=157) CALCIUM (BEAKER) (test 9.0 mg/dL 8.4-10.2 hzai=318) EGFR (BEAKER) (test 71 mL/min/1.73 sq m ESTIMATED GFR IS NOT huzv=9096) ACCURATE CREATININE CLEARANCE IN PREDICTING GLOMERULAR FILTRATION RATE. ESTIMATED GFR IS NOT APPLICABLE FOR DIALYSIS PATIENTS. [id number] 04:07:00 Test Item Value Reference Range Comments PARTIAL THROMBOPLASTIN TIME (BEAKER) (test 77.4 seconds 22.5-36.0 jroq=761) CBC W/PLT COUNT & AUTO [id number] 04:03:00 Test Item Value Reference Range Comments WHITE BLOOD CELL COUNT (BEAKER) (test rabh=893) 10.4 K/ L 3.5-10.5 RED BLOOD CELL COUNT (BEAKER) (test wrwv=531) 3.06 M/ L 4.63-6.08 HEMOGLOBIN (BEAKER) (test hvjb=251) 9.6 GM/DL 13.7-17.5 HEMATOCRIT (BEAKER) (test onxn=793) 28.9 % 40.1-51.0 MEAN CORPUSCULAR VOLUME (BEAKER) (test uunh=077) 94.4 fL 79.0-92.2 MEAN CORPUSCULAR HEMOGLOBIN (BEAKER) (test 31.4 pg 25.7-32.2 lygt=871) MEAN CORPUSCULAR HEMOGLOBIN CONC (BEAKER) (test 33.2 GM/DL 32.3-36.5 gqdr=768) RED CELL DISTRIBUTION WIDTH (BEAKER) (test 13.2 % 11.6-14.4 pyus=511) PLATELET COUNT (BEAKER) (test gffn=507) 278 K/CU MM 150-450 MEAN PLATELET VOLUME (BEAKER) (test jqup=983) 9.8 fL 9.4-12.4 NUCLEATED RED BLOOD CELLS (BEAKER) (test 0 /100 WBC 0-0 yixz=719) NEUTROPHILS RELATIVE PERCENT (BEAKER) (test 58 % lyzi=949) LYMPHOCYTES RELATIVE PERCENT (BEAKER) (test 21 % ifcz=692) MONOCYTES RELATIVE PERCENT (BEAKER) (test 10 % hvrv=735) EOSINOPHILS RELATIVE PERCENT (BEAKER) (test 8 % cyqz=622) BASOPHILS RELATIVE PERCENT (BEAKER) (test 0 % ajqj=126) NEUTROPHILS ABSOLUTE COUNT (BEAKER) (test 6.07 K/ L 1.78-5.38 oxbn=903) LYMPHOCYTES ABSOLUTE COUNT (BEAKER) (test 2.22 K/ L 1.32-3.57 eqls=266) MONOCYTES ABSOLUTE COUNT (BEAKER) (test 1.02 K/ L 0.30-0.82 eija=645) EOSINOPHILS ABSOLUTE COUNT (BEAKER) (test 0.82 K/ L 0.04-0.54 cadd=107) BASOPHILS ABSOLUTE COUNT (BEAKER) (test 0.04 K/ L 0.01-0.08 xwjk=793) IMMATURE GRANULOCYTES-RELATIVE PERCENT (BEAKER) 2 % 0-1 (test jgbi=2386) CALCIUM, [id number] 03:57:00 Test Item Value Reference Range Comments CALCIUM IONIZED (BEAKER) (test qsiz=787) 1.14 mmol/L 1.12-1.27 PH, BLOOD (BEAKER) (test vnix=9831) 7.53 POCT-GLUCOSE [id number] 00:56:00 Test Item Value Reference Range Comments POC-GLUCOSE METER (BEAKER) 110 mg/dL 70-110 : TESTED AT [facility] [address] [facility] (test rjjy=8602) [facility], [address]: [employer] [id number] for NENA MARAVILLA [id number] 21:01:00 Test Item Value Reference Range Comments MAGNESIUM (BEAKER) (test 1.9 mg/dL 1.6-2.6 Specimen slightly hemolyzed ggts=598) [id number] 21:01:00 Test Item Value Reference Range Comments POTASSIUM (BEAKER) (test 4.4 meq/L 3.5-5.1 Specimen slightly hemolyzed fzfb=493) [id number] 20:55:00 Test Item Value Reference Range Comments PARTIAL THROMBOPLASTIN TIME (BEAKER) (test 60.4 seconds 22.5-36.0 eqwr=643) POCT-GLUCOSE [id number] 20:32:00 Test Item Value Reference Range Comments POC-GLUCOSE METER (BEAKER) 161 mg/dL 70-110 : TESTED AT [facility] [address] [facility] (test mfvk=7087) [facility], [address]: [employer] [id number] for NENA MARAVILLA POCT-GLUCOSE [id number] 19:23:00 Test Item Value Reference Range Comments POC-GLUCOSE METER (BEAKER) 147 mg/dL 70-110 : TESTED AT [address] (test tgei=6793) [facility], [address]: [employer] [id number] for LISA YEPEZ RAD, CHEST, 1 VIEW, NON [id number] 15:28:00Reason for exam:->Pulmonary vascular congestionShould this be performed at the bedside?->YesFINAL REPORT History: Pulmonary vascular congestion Comparison: 2019 Findings: The lungs are clear. No pleural effusions or pneumothorax. The heart shadow is normal in size.The thoracic aorta is mildly tortuous. A left shoulder reverse arthroplasty is partially imaged. Impression: No evidence of acute cardiopulmonary disease. Signed: Dwight Rosen MDReport Verified Date/Time : 08/07/2019 15:28:06 Reading Location: [address] Reading Room B-TYPE NATRIURETIC FACTOR (BNP)2019-08-07 14:51:00 Test Item Value Reference Range Comments B-TYPE NATRIURETIC PEPTIDE (BEAKER) (test 461 pg/mL 0-100 cisv=395) CBC W/PLT COUNT & AUTO [id number] 14:17:00 Test Item Value Reference Range Comments WHITE BLOOD CELL COUNT (BEAKER) (test srcl=328) 10.8 K/ L 3.5-10.5 RED BLOOD CELL COUNT (BEAKER) (test mqgk=778) 3.07 M/ L 4.63-6.08 HEMOGLOBIN (BEAKER) (test rxlm=573) 9.5 GM/DL 13.7-17.5 HEMATOCRIT (BEAKER) (test dhgr=268) 29.4 % 40.1-51.0 MEAN CORPUSCULAR VOLUME (BEAKER) (test uarq=264) 95.8 fL 79.0-92.2 MEAN CORPUSCULAR HEMOGLOBIN (BEAKER) (test 30.9 pg 25.7-32.2 djeb=564) MEAN CORPUSCULAR HEMOGLOBIN CONC (BEAKER) (test 32.3 GM/DL 32.3-36.5 hknz=479) RED CELL DISTRIBUTION WIDTH (BEAKER) (test 13.2 % 11.6-14.4 ubgv=763) PLATELET COUNT (BEAKER) (test bmjl=259) 289 K/CU MM 150-450 MEAN PLATELET VOLUME (BEAKER) (test ryic=182) 10.2 fL 9.4-12.4 NUCLEATED RED BLOOD CELLS (BEAKER) (test 0 /100 WBC 0-0 xdqj=227) NEUTROPHILS RELATIVE PERCENT (BEAKER) (test 60 % nroc=962) LYMPHOCYTES RELATIVE PERCENT (BEAKER) (test 17 % ajxt=478) MONOCYTES RELATIVE PERCENT (BEAKER) (test 10 % zxdj=374) EOSINOPHILS RELATIVE PERCENT (BEAKER) (test 9 % prfx=494) BASOPHILS RELATIVE PERCENT (BEAKER) (test 1 % dsij=847) NEUTROPHILS ABSOLUTE COUNT (BEAKER) (test 6.54 K/ L 1.78-5.38 xsjy=758) LYMPHOCYTES ABSOLUTE COUNT (BEAKER) (test 1.84 K/ L 1.32-3.57 hbeu=181) MONOCYTES ABSOLUTE COUNT (BEAKER) (test 1.07 K/ L 0.30-0.82 awhq=694) EOSINOPHILS ABSOLUTE COUNT (BEAKER) (test 0.94 K/ L 0.04-0.54 pluf=520) BASOPHILS ABSOLUTE COUNT (BEAKER) (test 0.06 K/ L 0.01-0.08 qdls=441) IMMATURE GRANULOCYTES-RELATIVE PERCENT (BEAKER) 4 % 0-1 (test ralw=8472) [id number] 13:27:00 Test Item Value Reference Range Comments PARTIAL THROMBOPLASTIN TIME (BEAKER) (test 65.5 seconds 22.5-36.0 dxae=351) POCT-GLUCOSE [id number] 13:26:00 Test Item Value Reference Range Comments POC-GLUCOSE METER (BEAKER) 153 mg/dL 70-110 : TESTED AT [address] (test uplj=0142) [facility], [address]: [employer] WG=[id number] for LISA YEPEZ POCT-GLUCOSE [id number] 08:32:00 Test Item Value Reference Range Comments POC-GLUCOSE METER (BEAKER) 109 mg/dL 70-110 : TESTED AT [address] (test tatb=1433) [facility], [address]: [employer] [id number] for MARLENI LISA [id number] 05:44:00 Test Item Value Reference Range Comments PARTIAL THROMBOPLASTIN TIME (BEAKER) (test 63.4 seconds 22.5-36.0 pbfm=196) [id number] 05:35:00 Test Item Value Reference Range Comments MAGNESIUM (BEAKER) (test 2.0 mg/dL 1.6-2.6 Specimen slightly hemolyzed zgcf=073) BASIC METABOLIC [id number] 05:35:00 Test Item Value Reference Range Comments SODIUM (BEAKER) (test 134 meq/L 136-145 hfno=026) POTASSIUM (BEAKER) (test 3.8 meq/L 3.5-5.1 Specimen slightly omae=234) hemolyzed CHLORIDE (BEAKER) (test 105 meq/L 98-107 cczn=770) CO2 (BEAKER) (test 21 meq/L 22-29 zwno=924) BLOOD UREA NITROGEN 15 mg/dL 7-21 (BEAKER) (test mwkg=128) CREATININE (BEAKER) (test 0.81 mg/dL 0.57-1.25 Specimen slightly pxed=144) hemolyzed GLUCOSE RANDOM (BEAKER) 109 mg/dL 70-105 (test chew=692) CALCIUM (BEAKER) (test 8.1 mg/dL 8.4-10.2 scfu=164) EGFR (BEAKER) (test 91 mL/min/1.73 sq m ESTIMATED GFR IS NOT ziud=7397) ACCURATE CREATININE CLEARANCE IN PREDICTING GLOMERULAR FILTRATION RATE. ESTIMATED GFR IS NOT APPLICABLE FOR DIALYSIS PATIENTS. CALCIUM, [id number] 04:49:00 Test Item Value Reference Range Comments CALCIUM IONIZED (BEAKER) (test ajag=701) 1.15 mmol/L 1.12-1.27 PH, BLOOD (BEAKER) (test ywjd=5852) 7.48 POCT-GLUCOSE [id number] 21:26:00 Test Item Value Reference Range Comments POC-GLUCOSE METER (BEAKER) 157 mg/dL 70-110 : TESTED AT [address] (test kiwz=8693) [facility], [address]: [employer] QN=[id number] for JENNIFER LOCKWOOD POCT-GLUCOSE [id number] 16:30:00 Test Item Value Reference Range Comments POC-GLUCOSE METER (BEAKER) 146 mg/dL 70-110 : TESTED AT [address] (test bgew=6737) [facility], [address]: [employer] OD=[id number] for LISA YEPEZ POCT-GLUCOSE [id number] 13:04:00 Test Item Value Reference Range Comments POC-GLUCOSE METER (BEAKER) 172 mg/dL 70-110 : TESTED AT [address] (test uano=5968) [facility], [address]: [employer] DR=[id number] for LISA YEPEZ SPUTUM CULTURE + GRAM [id number] 12:54:00 Test Item Value Reference Range Comments CULTURE (BEAKER) (test 4+ Normal respiratory doris ydvi=1252) present GRAM STAIN RESULT (BEAKER) 1+ White blood cells seen (test eggn=1095) GRAM STAIN RESULT (BEAKER) 1+ gram negative rods (test nraz=73188) GRAM STAIN RESULT (BEAKER) 2+ gram positive cocci in (test kqzk=48141) chains, pairs and clusters GRAM STAIN RESULT (BEAKER) 5-10 epithelial cells (test kwvj=713268) RAD, CHEST, 1 VIEW, NON [id number] 11:50:00Reason for exam:->worsening coughShould this be performed at the bedside?->YesFINAL REPORT RAD, CHEST, 1 VIEW, NON DEPT INDICATION: worsening cough COMPARISON: Prior day's exam FINDINGS: Portable frontal view of the chest. IMPRESSION: Support Lines: None. Lungs and pleura: Lungs are clear. No effusion. No pneumothorax.Heart and mediastinum: Stable contours.Additional findings: None. Signed: JR Flannery Robert MDReport Verified Date/Time: 08/06/2019 11:50: 57 Reading Location: [facility] Radiology Reading Room [id number] 08: 23:00 Test Item Value Reference Range Comments PHOSPHORUS (BEAKER) (test xbjv=081) 2.9 mg/dL 2.3-4.7 [id number] 08:23:00 Test Item Value Reference Range Comments MAGNESIUM (BEAKER) (test kdct=107) 2.1 mg/dL 1.6-2.6 BASIC METABOLIC [id number] 08:23:00 Test Item Value Reference Range Comments SODIUM (BEAKER) (test 135 meq/L 136-145 wabh=276) POTASSIUM (BEAKER) (test 3.6 meq/L 3.5-5.1 ymlz=075) CHLORIDE (BEAKER) (test 104 meq/L 98-107 uiar=944) CO2 (BEAKER) (test 25 meq/L 22-29 oojq=929) BLOOD UREA NITROGEN 18 mg/dL 7-21 (BEAKER) (test czlh=318) CREATININE (BEAKER) (test 0.89 mg/dL 0.57-1.25 sadz=402) GLUCOSE RANDOM (BEAKER) 93 mg/dL 70-105 (test relo=088) CALCIUM (BEAKER) (test 8.3 mg/dL 8.4-10.2 qucn=177) EGFR (BEAKER) (test 82 mL/min/1.73 sq m ESTIMATED GFR IS NOT iluj=4342) ACCURATE CREATININE CLEARANCE IN PREDICTING GLOMERULAR FILTRATION RATE. ESTIMATED GFR IS NOT APPLICABLE FOR DIALYSIS PATIENTS. [id number] 08:09:00 Test Item Value Reference Range Comments PARTIAL THROMBOPLASTIN TIME (BEAKER) (test 75.6 seconds 22.5-36.0 cvbr=341) CBC W/PLT COUNT & AUTO [id number] 08:03:00 Test Item Value Reference Range Comments WHITE BLOOD CELL COUNT (BEAKER) (test jmqh=053) 9.8 K/ L 3.5-10.5 RED BLOOD CELL COUNT (BEAKER) (test tesz=669) 3.17 M/ L 4.63-6.08 HEMOGLOBIN (BEAKER) (test hcle=893) 10.0 GM/DL 13.7-17.5 HEMATOCRIT (BEAKER) (test ngsm=925) 30.1 % 40.1-51.0 MEAN CORPUSCULAR VOLUME (BEAKER) (test qbtt=911) 95.0 fL 79.0-92.2 MEAN CORPUSCULAR HEMOGLOBIN (BEAKER) (test 31.5 pg 25.7-32.2 yiiq=566) MEAN CORPUSCULAR HEMOGLOBIN CONC (BEAKER) (test 33.2 GM/DL 32.3-36.5 kgmw=870) RED CELL DISTRIBUTION WIDTH (BEAKER) (test 13.1 % 11.6-14.4 divb=352) PLATELET COUNT (BEAKER) (test djbp=123) 316 K/CU MM 150-450 MEAN PLATELET VOLUME (BEAKER) (test opwl=413) 9.9 fL 9.4-12.4 NUCLEATED RED BLOOD CELLS (BEAKER) (test 0 /100 WBC 0-0 tiye=666) NEUTROPHILS RELATIVE PERCENT (BEAKER) (test 63 % nhqn=464) LYMPHOCYTES RELATIVE PERCENT (BEAKER) (test 18 % iufc=922) MONOCYTES RELATIVE PERCENT (BEAKER) (test 10 % bbxq=919) EOSINOPHILS RELATIVE PERCENT (BEAKER) (test 6 % yblp=410) BASOPHILS RELATIVE PERCENT (BEAKER) (test 0 % jejz=515) NEUTROPHILS ABSOLUTE COUNT (BEAKER) (test 6.18 K/ L 1.78-5.38 ezbo=294) LYMPHOCYTES ABSOLUTE COUNT (BEAKER) (test 1.76 K/ L 1.32-3.57 sbia=008) MONOCYTES ABSOLUTE COUNT (BEAKER) (test 1.01 K/ L 0.30-0.82 qduv=023) EOSINOPHILS ABSOLUTE COUNT (BEAKER) (test 0.56 K/ L 0.04-0.54 wtpn=957) BASOPHILS ABSOLUTE COUNT (BEAKER) (test 0.04 K/ L 0.01-0.08 qdhv=277) IMMATURE GRANULOCYTES-RELATIVE PERCENT (BEAKER) 2 % 0-1 (test bmug=8909) CALCIUM, [id number] 07:56:00 Test Item Value Reference Range Comments CALCIUM IONIZED (BEAKER) (test xmua=554) 1.14 mmol/L 1.12-1.27 PH, BLOOD (BEAKER) (test hxbl=1311) 7.48 POCT-GLUCOSE [id number] 07:26:00 Test Item Value Reference Range Comments POC-GLUCOSE METER (BEAKER) 75 mg/dL 70-110 : TESTED AT [address] (test dcus=2009) [facility], [address]: [employer] LY=[id number] for LISA YEPEZ POCT-GLUCOSE [id number] 21:06:00 Test Item Value Reference Range Comments POC-GLUCOSE METER (BEAKER) 161 mg/dL 70-110 : Notified RN/MD: TESTED AT (test kfin=1881) [address], [address]: [employer] DC=[id number] for BENJAMIN OLIVAS POCT-GLUCOSE [id number] 17:16:00 Test Item Value Reference Range Comments POC-GLUCOSE METER (BEAKER) 167 mg/dL 70-110 : TESTED AT [address] (test brcj=3122) [facility], [address]: [employer] VI=[id number] for AUSTEN ROSASLINE POCT-GLUCOSE [id number] 14:19:00 Test Item Value Reference Range Comments POC-GLUCOSE METER (BEAKER) 187 mg/dL 70-110 : TESTED AT [address] (test msuv=6001) [facility], [address]: [employer] CM=[id number] for DEEP MARIAH POCT-GLUCOSE [id number] 11:38:00 Test Item Value Reference Range Comments POC-GLUCOSE METER (BEAKER) 168 mg/dL 70-110 : TESTED AT [address] (test urzx=8004) [facility], [address]: [employer] SQ=[id number] for ALISON, DEVI RAD, CHEST, 1 VIEW, NON [id number] 10:52:00Reason for exam:->coughShould this be performed at the bedside?->YesFINAL REPORT RAD , CHEST, 1 VIEW, NON DEPT INDICATION: cough COMPARISON: 03 August 2019 FINDINGS: Portable frontal view of the chest. IMPRESSION: Support Lines: None Lungs and pleura: No new consolidation. No significant effusion. No pneumothorax.Heart and mediastinum: Stable contours. Additional findings: None. Signed: JR Flannery Robert MDRepstephon Verified Date/Time:08/05/2019 10:52: 02 Reading Location: [facility] Radiology Reading Room POCT-GLUCOSE [id number] 07:50:00 Test Item Value Reference Range Comments POC-GLUCOSE METER (BEAKER) 115 mg/dL 70-110 : TESTED AT [facility] [address] [place] [address] (test wyki=7222) [facility], [address]: [employer] OX=[id number] for DEVI ROSAS [id number] 05:43:00 Test Item Value Reference Range Comments PHOSPHORUS (BEAKER) (test bltd=007) 2.4 mg/dL 2.3-4.7 [id number] 05:43:00 Test Item Value Reference Range Comments MAGNESIUM (BEAKER) (test dvxx=717) 2.1 mg/dL 1.6-2.6 BASIC METABOLIC [id number] 05:43:00 Test Item Value Reference Range Comments SODIUM (BEAKER) (test 136 meq/L 136-145 xcby=120) POTASSIUM (BEAKER) (test 3.4 meq/L 3.5-5.1 cqso=262) CHLORIDE (BEAKER) (test 102 meq/L 98-107 eyhm=842) CO2 (BEAKER) (test 24 meq/L 22-29 zjjp=565) BLOOD UREA NITROGEN 28 mg/dL 7-21 (BEAKER) (test uhhr=859) CREATININE (BEAKER) (test 1.02 mg/dL 0.57-1.25 rbne=264) GLUCOSE RANDOM (BEAKER) 89 mg/dL 70-105 (test mzgp=097) CALCIUM (BEAKER) (test 8.4 mg/dL 8.4-10.2 wxrf=393) EGFR (BEAKER) (test 70 mL/min/1.73 sq m ESTIMATED GFR IS NOT czsf=2857) ACCURATE CREATININE CLEARANCE IN PREDICTING GLOMERULAR FILTRATION RATE. ESTIMATED GFR IS NOT APPLICABLE FOR DIALYSIS PATIENTS. [id number] 05:34:00 Test Item Value Reference Range Comments PARTIAL THROMBOPLASTIN TIME (BEAKER) (test 68.2 seconds 22.5-36.0 nzzw=620) CBC W/PLT COUNT & AUTO [id number] 05:28:00 Test Item Value Reference Range Comments WHITE BLOOD CELL COUNT (BEAKER) (test simd=818) 12.4 K/ L 3.5-10.5 RED BLOOD CELL COUNT (BEAKER) (test cpgo=957) 3.12 M/ L 4.63-6.08 HEMOGLOBIN (BEAKER) (test wbjy=728) 9.8 GM/DL 13.7-17.5 HEMATOCRIT (BEAKER) (test dxiv=458) 29.2 % 40.1-51.0 MEAN CORPUSCULAR VOLUME (BEAKER) (test lmim=152) 93.6 fL 79.0-92.2 MEAN CORPUSCULAR HEMOGLOBIN (BEAKER) (test 31.4 pg 25.7-32.2 czuv=470) MEAN CORPUSCULAR HEMOGLOBIN CONC (BEAKER) (test 33.6 GM/DL 32.3-36.5 fnel=665) RED CELL DISTRIBUTION WIDTH (BEAKER) (test 12.9 % 11.6-14.4 odtn=013) PLATELET COUNT (BEAKER) (test fllm=956) 364 K/CU MM 150-450 MEAN PLATELET VOLUME (BEAKER) (test manf=627) 10.0 fL 9.4-12.4 NUCLEATED RED BLOOD CELLS (BEAKER) (test 0 /100 WBC 0-0 eaqz=236) NEUTROPHILS RELATIVE PERCENT (BEAKER) (test 70 % eqsx=891) LYMPHOCYTES RELATIVE PERCENT (BEAKER) (test 18 % ycnp=777) MONOCYTES RELATIVE PERCENT (BEAKER) (test 9 % sabx=085) EOSINOPHILS RELATIVE PERCENT (BEAKER) (test 2 % wnlc=562) BASOPHILS RELATIVE PERCENT (BEAKER) (test 0 % aoln=872) NEUTROPHILS ABSOLUTE COUNT (BEAKER) (test 8.59 K/ L 1.78-5.38 ebpy=701) LYMPHOCYTES ABSOLUTE COUNT (BEAKER) (test 2.28 K/ L 1.32-3.57 hcfe=154) MONOCYTES ABSOLUTE COUNT (BEAKER) (test 1.12 K/ L 0.30-0.82 dqwu=151) EOSINOPHILS ABSOLUTE COUNT (BEAKER) (test 0.19 K/ L 0.04-0.54 fnhu=205) BASOPHILS ABSOLUTE COUNT (BEAKER) (test 0.04 K/ L 0.01-0.08 ixxf=838) IMMATURE GRANULOCYTES-RELATIVE PERCENT (BEAKER) 1 % 0-1 (test dwky=2260) CALCIUM, [id number] 04:54:00 Test Item Value Reference Range Comments CALCIUM IONIZED (BEAKER) (test eetd=819) 1.14 mmol/L 1.12-1.27 PH, BLOOD (BEAKER) (test japp=2146) 7.49 POCT-GLUCOSE [id number] 22:13:00 Test Item Value Reference Range Comments POC-GLUCOSE METER (BEAKER) 147 mg/dL 70-110 : TESTED AT [address] (test hgtw=0063) [facility], [address]: [employer] SK=[id number] for BON NI POCT-GLUCOSE [id number] 17:30:00 Test Item Value Reference Range Comments POC-GLUCOSE METER (BEAKER) 133 mg/dL 70-110 : TESTED AT [address] (test qjjp=8030) [facility], [address]: [employer] EB=[id number] for AUSTEN ROSASLINE POCT-GLUCOSE [id number] 11:58:00 Test Item Value Reference Range Comments POC-GLUCOSE METER (BEAKER) 175 mg/dL 70-110 : TESTED AT [address] (test orjx=9866) [facility], [address]: [employer] FG=[id number] for GRIS ROSASQUELINE [id number] 10:22:00 Test Item Value Reference Range Comments PARTIAL THROMBOPLASTIN TIME (BEAKER) (test 91.0 seconds 22.5-36.0 ucso=584) POCT-GLUCOSE [id number] 07:46:00 Test Item Value Reference Range Comments POC-GLUCOSE METER (BEAKER) 164 mg/dL 70-110 : TESTED AT [facility] [address] (test hwcz=4424) [place], [address]: [employer] XE=[id number] for DEVI ROSAS [id number] 03:42:00 Test Item Value Reference Range Comments PHOSPHORUS (BEAKER) (test eycc=380) 2.9 mg/dL 2.3-4.7 [id number] 03:42:00 Test Item Value Reference Range Comments MAGNESIUM (BEAKER) (test gdpw=990) 2.3 mg/dL 1.6-2.6 BASIC METABOLIC [id number] 03:42:00 Test Item Value Reference Range Comments SODIUM (BEAKER) (test 132 meq/L 136-145 vlpg=944) POTASSIUM (BEAKER) (test 4.1 meq/L 3.5-5.1 pvdd=052) CHLORIDE (BEAKER) (test 100 meq/L 98-107 lkhj=163) CO2 (BEAKER) (test 21 meq/L 22-29 naeu=681) BLOOD UREA NITROGEN 34 mg/dL 7-21 (BEAKER) (test hhpc=442) CREATININE (BEAKER) (test 1.19 mg/dL 0.57-1.25 fnfh=236) GLUCOSE RANDOM (BEAKER) 208 mg/dL 70-105 (test stsd=085) CALCIUM (BEAKER) (test 8.7 mg/dL 8.4-10.2 wgqi=591) EGFR (BEAKER) (test 58 mL/min/1.73 sq m ESTIMATED GFR IS NOT jann=7665) ACCURATE CREATININE CLEARANCE IN PREDICTING GLOMERULAR FILTRATION RATE. ESTIMATED GFR IS NOT APPLICABLE FOR DIALYSIS PATIENTS. [id number] 03:41:00 Test Item Value Reference Range Comments PARTIAL THROMBOPLASTIN TIME (BEAKER) (test 94.5 seconds 22.5-36.0 tioc=302) CBC W/PLT COUNT & AUTO [id number] 03:38:00 Test Item Value Reference Range Comments WHITE BLOOD CELL COUNT (BEAKER) (test obsi=005) 11.0 K/ L 3.5-10.5 RED BLOOD CELL COUNT (BEAKER) (test qiet=833) 3.26 M/ L 4.63-6.08 HEMOGLOBIN (BEAKER) (test skrp=111) 10.1 GM/DL 13.7-17.5 HEMATOCRIT (BEAKER) (test fjzo=036) 30.7 % 40.1-51.0 MEAN CORPUSCULAR VOLUME (BEAKER) (test qllg=998) 94.2 fL 79.0-92.2 MEAN CORPUSCULAR HEMOGLOBIN (BEAKER) (test 31.0 pg 25.7-32.2 wahx=350) MEAN CORPUSCULAR HEMOGLOBIN CONC (BEAKER) (test 32.9 GM/DL 32.3-36.5 dxpt=945) RED CELL DISTRIBUTION WIDTH (BEAKER) (test 12.5 % 11.6-14.4 ktry=299) PLATELET COUNT (BEAKER) (test tkvt=672) 369 K/CU MM 150-450 MEAN PLATELET VOLUME (BEAKER) (test eudy=897) 9.8 fL 9.4-12.4 NUCLEATED RED BLOOD CELLS (BEAKER) (test 0 /100 WBC 0-0 nzna=752) NEUTROPHILS RELATIVE PERCENT (BEAKER) (test 89 % dhat=068) LYMPHOCYTES RELATIVE PERCENT (BEAKER) (test 7 % peja=844) MONOCYTES RELATIVE PERCENT (BEAKER) (test 2 % qrhu=147) EOSINOPHILS RELATIVE PERCENT (BEAKER) (test 0 % vdjb=996) BASOPHILS RELATIVE PERCENT (BEAKER) (test 0 % qmjl=977) NEUTROPHILS ABSOLUTE COUNT (BEAKER) (test 9.81 K/ L 1.78-5.38 dttf=498) LYMPHOCYTES ABSOLUTE COUNT (BEAKER) (test 0.82 K/ L 1.32-3.57 pcfd=327) MONOCYTES ABSOLUTE COUNT (BEAKER) (test 0.25 K/ L 0.30-0.82 xsjo=190) EOSINOPHILS ABSOLUTE COUNT (BEAKER) (test 0.00 K/ L 0.04-0.54 opxq=134) BASOPHILS ABSOLUTE COUNT (BEAKER) (test 0.02 K/ L 0.01-0.08 okax=974) IMMATURE GRANULOCYTES-RELATIVE PERCENT (BEAKER) 1 % 0-1 (test kbza=0442) CALCIUM, [id number] 03:31:00 Test Item Value Reference Range Comments CALCIUM IONIZED (BEAKER) (test xqik=321) 1.12 mmol/L 1.12-1.27 PH, BLOOD (BEAKER) (test hcmo=7976) 7.48 POCT-GLUCOSE [id number] 22:06:00 Test Item Value Reference Range Comments POC-GLUCOSE METER (BEAKER) 235 mg/dL 70-110 : TESTED AT [facility] [address] [facility] (test vvyc=2466) [facility], [address]: [employer] FG=[id number] for MISTY BRIGGS [id number] 19:35:00 Test Item Value Reference Range Comments MAGNESIUM (BEAKER) (test 2.2 mg/dL 1.6-2.6 Specimen moderately hemolyzed bqzd=921) BASIC METABOLIC [id number] 19:11:00 Test Item Value Reference Range Comments SODIUM (BEAKER) (test 131 meq/L 136-145 pfbw=423) POTASSIUM (BEAKER) (test 4.3 meq/L 3.5-5.1 Specimen moderately nfcx=452) hemolyzed CHLORIDE (BEAKER) (test 98 meq/L 98-107 qnqi=681) CO2 (BEAKER) (test 24 meq/L 22-29 pwlu=616) BLOOD UREA NITROGEN 32 mg/dL 7-21 (BEAKER) (test psee=055) CREATININE (BEAKER) (test 1.21 mg/dL 0.57-1.25 Specimen moderately owyf=923) hemolyzed GLUCOSE RANDOM (BEAKER) 210 mg/dL 70-105 (test uhhc=868) CALCIUM (BEAKER) (test 8.6 mg/dL 8.4-10.2 cobk=185) EGFR (BEAKER) (test 57 mL/min/1.73 sq m ESTIMATED GFR IS NOT qwzr=1140) ACCURATE CREATININE CLEARANCE IN PREDICTING GLOMERULAR FILTRATION RATE. ESTIMATED GFR IS NOT APPLICABLE FOR DIALYSIS PATIENTS. POCT-GLUCOSE [id number] 18:27:00 Test Item Value Reference Range Comments POC-GLUCOSE METER (BEAKER) 211 mg/dL 70-110 : [facility] [address] [facility] (test wyvv=7354) [facility], [address]: [employer] [id number] for PRABHAKAR CAREY [id number] 16:38:00 Test Item Value Reference Range Comments MAGNESIUM (BEAKER) (test 2.3 mg/dL 1.6-2.6 Specimen slightly hemolyzed nvtz=928) [id number] 16:38:00 Test Item Value Reference Range Comments PHOSPHORUS (BEAKER) (test 3.0 mg/dL 2.3-4.7 Specimen slightly hemolyzed pvvu=912) BASIC METABOLIC [id number] 16:38:00 Test Item Value Reference Range Comments SODIUM (BEAKER) (test 133 meq/L 136-145 plau=954) POTASSIUM (BEAKER) (test 4.1 meq/L 3.5-5.1 Specimen slightly cpfc=134) hemolyzed CHLORIDE (BEAKER) (test 98 meq/L 98-107 qaoc=843) CO2 (BEAKER) (test 24 meq/L 22-29 rxtt=146) BLOOD UREA NITROGEN 31 mg/dL 7-21 (BEAKER) (test mxmy=223) CREATININE (BEAKER) (test 1.21 mg/dL 0.57-1.25 Specimen slightly hijo=552) hemolyzed GLUCOSE RANDOM (BEAKER) 175 mg/dL 70-105 (test pbhl=064) CALCIUM (BEAKER) (test 8.7 mg/dL 8.4-10.2 eave=890) EGFR (BEAKER) (test 57 mL/min/1.73 sq m ESTIMATED GFR IS NOT yhyy=8015) ACCURATE CREATININE CLEARANCE IN PREDICTING GLOMERULAR FILTRATION RATE. ESTIMATED GFR IS NOT APPLICABLE FOR DIALYSIS PATIENTS. POCT-GLUCOSE [id number] 15:26:00 Test Item Value Reference Range Comments POC-GLUCOSE METER (BEAKER) 182 mg/dL 70-110 : TESTED AT [facility] [address] [facility] (test abie=0330) [facility], [address]: [employer] [phone]=[id number] for PRABHAKAR CAREY RAD, CHEST, 1 VIEW, NON [id number] 10:56:00Reason for exam:->coughShould this be performed at the bedside?->YesFINAL REPORT RAD , CHEST, 1 VIEW, NON DEPT INDICATION: cough COMPARISON: 30 July 2019 FINDINGS: Portable frontal view of the chest. IMPRESSION: Support Lines: None Lungs and pleura: Lungs are clear. No pneumothorax.Heart and mediastinum: Stable contours. Additional findings: None. Signed: JR Flannery Robert MDReport Verified Date/Time: 08/03/2019 10:56:47 Reading Location: [facility] Reading Room POCT-GLUCOSE [id number] 07:58:00 Test Item Value Reference Range Comments POC-GLUCOSE METER (BEAKER) 123 mg/dL 70-110 : TESTED AT [facility] [address] (test whft=4216) [facility], [address]: [employer] [id number] for PRABHAKAR CAREY [id number] 05:30:00 Test Item Value Reference Range Comments MAGNESIUM (BEAKER) (test 2.5 mg/dL 1.6-2.6 Specimen moderately hemolyzed ccze=254) [id number] 05:30:00 Test Item Value Reference Range Comments PHOSPHORUS (BEAKER) (test 3.8 mg/dL 2.3-4.7 Specimen moderately hemolyzed zcau=651) BASIC METABOLIC [id number] 05:30:00 Test Item Value Reference Range Comments SODIUM (BEAKER) (test 132 meq/L 136-145 ufeb=071) POTASSIUM (BEAKER) (test 4.7 meq/L 3.5-5.1 Specimen moderately buwm=526) hemolyzed CHLORIDE (BEAKER) (test 96 meq/L 98-107 lmoc=684) CO2 (BEAKER) (test 26 meq/L 22-29 wtna=939) BLOOD UREA NITROGEN 32 mg/dL 7-21 (BEAKER) (test dcao=018) CREATININE (BEAKER) (test 1.42 mg/dL 0.57-1.25 Specimen moderately vdjn=339) hemolyzed GLUCOSE RANDOM (BEAKER) 134 mg/dL 70-105 (test vpze=113) CALCIUM (BEAKER) (test 8.8 mg/dL 8.4-10.2 jbpi=948) EGFR (BEAKER) (test 48 mL/min/1.73 sq m ESTIMATED GFR IS NOT koer=7639) ACCURATE CREATININE CLEARANCE IN PREDICTING GLOMERULAR FILTRATION RATE. ESTIMATED GFR IS NOT APPLICABLE FOR DIALYSIS PATIENTS. CBC W/PLT COUNT & AUTO [id number] 05:03:00 Test Item Value Reference Range Comments WHITE BLOOD CELL COUNT (BEAKER) (test lhqi=099) 15.3 K/ L 3.5-10.5 RED BLOOD CELL COUNT (BEAKER) (test xkfd=228) 3.73 M/ L 4.63-6.08 HEMOGLOBIN (BEAKER) (test yvbf=315) 11.5 GM/DL 13.7-17.5 HEMATOCRIT (BEAKER) (test fcxa=919) 35.4 % 40.1-51.0 MEAN CORPUSCULAR VOLUME (BEAKER) (test ohna=248) 94.9 fL 79.0-92.2 MEAN CORPUSCULAR HEMOGLOBIN (BEAKER) (test 30.8 pg 25.7-32.2 btrg=360) MEAN CORPUSCULAR HEMOGLOBIN CONC (BEAKER) (test 32.5 GM/DL 32.3-36.5 kvcm=919) RED CELL DISTRIBUTION WIDTH (BEAKER) (test 12.5 % 11.6-14.4 vzli=987) PLATELET COUNT (BEAKER) (test cvos=441) 477 K/CU MM 150-450 MEAN PLATELET VOLUME (BEAKER) (test tzqq=373) 9.7 fL 9.4-12.4 NUCLEATED RED BLOOD CELLS (BEAKER) (test 0 /100 WBC 0-0 bmzt=678) NEUTROPHILS RELATIVE PERCENT (BEAKER) (test 86 % kibx=532) LYMPHOCYTES RELATIVE PERCENT (BEAKER) (test 8 % sgis=250) MONOCYTES RELATIVE PERCENT (BEAKER) (test 4 % qvrg=100) EOSINOPHILS RELATIVE PERCENT (BEAKER) (test 1 % xrkr=776) BASOPHILS RELATIVE PERCENT (BEAKER) (test 0 % wile=413) NEUTROPHILS ABSOLUTE COUNT (BEAKER) (test 13.19 K/ L 1.78-5.38 hzcx=506) LYMPHOCYTES ABSOLUTE COUNT (BEAKER) (test 1.15 K/ L 1.32-3.57 jcyg=291) MONOCYTES ABSOLUTE COUNT (BEAKER) (test 0.61 K/ L 0.30-0.82 oska=971) EOSINOPHILS ABSOLUTE COUNT (BEAKER) (test 0.21 K/ L 0.04-0.54 jnns=780) BASOPHILS ABSOLUTE COUNT (BEAKER) (test 0.02 K/ L 0.01-0.08 fiyf=228) IMMATURE GRANULOCYTES-RELATIVE PERCENT (BEAKER) 1 % 0-1 (test orgx=3206) CALCIUM, [id number] 05:00:00 Test Item Value Reference Range Comments CALCIUM IONIZED (BEAKER) (test eybr=105) 1.15 mmol/L 1.12-1.27 PH, BLOOD (BEAKER) (test kjtb=9294) 7.43 [id number] 04:57:00 Test Item Value Reference Range Comments PARTIAL THROMBOPLASTIN TIME (BEAKER) (test 70.5 seconds 22.5-36.0 rwgj=815) POCT-GLUCOSE [id number] 21:22:00 Test Item Value Reference Range Comments POC-GLUCOSE METER (BEAKER) 157 mg/dL 70-110 : TESTED AT [facility] [address] [facility] (test xwoh=8837) [facility], [address]: [employer] [id number] for JENNIFER LOCKWOOD POCT-GLUCOSE [id number] 20:48:00 Test Item Value Reference Range Comments POC-GLUCOSE METER (BEAKER) 154 mg/dL 70-110 : TESTED AT [place] [id number] [facility] (test rkqp=3577) [facility], [address]: [employer] [id number] for Cem Zendejas [id number] 20:14:00 Test Item Value Reference Range Comments MAGNESIUM (BEAKER) (test 2.5 mg/dL 1.6-2.6 Specimen slightly hemolyzed ahkt=545) [id number] 20:14:00 Test Item Value Reference Range Comments PHOSPHORUS (BEAKER) (test 3.2 mg/dL 2.3-4.7 Specimen slightly hemolyzed bwas=967) BASIC METABOLIC [id number] 20:14:00 Test Item Value Reference Range Comments SODIUM (BEAKER) (test 133 meq/L 136-145 hbga=220) POTASSIUM (BEAKER) (test 4.3 meq/L 3.5-5.1 Specimen slightly dniz=882) hemolyzed CHLORIDE (BEAKER) (test 96 meq/L 98-107 qbvx=502) CO2 (BEAKER) (test 25 meq/L 22-29 plhu=289) BLOOD UREA NITROGEN 24 mg/dL 7-21 (BEAKER) (test vnua=960) CREATININE (BEAKER) (test 1.23 mg/dL 0.57-1.25 Specimen slightly urod=191) hemolyzed GLUCOSE RANDOM (BEAKER) 147 mg/dL 70-105 (test qeck=674) CALCIUM (BEAKER) (test 9.0 mg/dL 8.4-10.2 wegs=187) EGFR (BEAKER) (test 56 mL/min/1.73 sq m ESTIMATED GFR IS NOT kxwi=4393) ACCURATE CREATININE CLEARANCE IN PREDICTING GLOMERULAR FILTRATION RATE. ESTIMATED GFR IS NOT APPLICABLE FOR DIALYSIS PATIENTS. POCT-GLUCOSE [id number] 18:17:00 Test Item Value Reference Range Comments POC-GLUCOSE METER (BEAKER) 140 mg/dL 70-110 : TESTED AT [address] (test qojr=7713) [facility], [address]: [employer] [id number] for TAIWO POLANCOCIA [id number] 16:23:00 Test Item Value Reference Range Comments MAGNESIUM (BEAKER) (test uizn=732) 2.4 mg/dL 1.6-2.6 [id number] 16:23:00 Test Item Value Reference Range Comments POTASSIUM (BEAKER) (test ebet=250) 4.2 meq/L 3.5-5.1 POCT-GLUCOSE [id number] 15:17:00 Test Item Value Reference Range Comments POC-GLUCOSE METER (BEAKER) 207 mg/dL 70-110 : TESTED AT [address] (test hhcs=1250) [facility], [address]: [employer] [id number] for COLLIN, KATE POCT-GLUCOSE [id number] 14:53:00 Test Item Value Reference Range Comments POC-GLUCOSE METER (BEAKER) 118 mg/dL 70-110 : TESTED AT [address] (test rvlv=9889) [facility], [address]: [employer] LZ=[id number] for COLLIN, KATE [id number] 01:33:00 Test Item Value Reference Range Comments MAGNESIUM (BEAKER) (test 2.2 mg/dL 1.6-2.6 Specimen slightly hemolyzed lhmy=350) [id number] 01:33:00 Test Item Value Reference Range Comments PHOSPHORUS (BEAKER) (test 3.3 mg/dL 2.3-4.7 Specimen slightly hemolyzed hgpz=669) COMPREHENSIVE METABOLIC [id number] 01:33:00 Test Item Value Reference Range Comments TOTAL PROTEIN (BEAKER) 6.9 gm/dL 6.0-8.3 Specimen slightly (test rouz=288) hemolyzed ALBUMIN (BEAKER) (test 3.5 g/dL 3.5-5.0 Specimen slightly viot=9638) hemolyzed ALKALINE PHOSPHATASE 115 U/L 40-150 (BEAKER) (test almv=746) BILIRUBIN TOTAL (BEAKER) 0.5 mg/dL 0.2-1.2 Specimen slightly (test vhsz=599) hemolyzed SODIUM (BEAKER) (test 133 meq/L 136-145 szmr=250) POTASSIUM (BEAKER) (test 4.3 meq/L 3.5-5.1 Specimen slightly knym=601) hemolyzed CHLORIDE (BEAKER) (test 98 meq/L 98-107 tmvs=813) CO2 (BEAKER) (test 25 meq/L 22-29 idbx=010) BLOOD UREA NITROGEN 23 mg/dL 7-21 (BEAKER) (test abgg=423) CREATININE (BEAKER) (test 1.34 mg/dL 0.57-1.25 Specimen slightly moba=575) hemolyzed GLUCOSE RANDOM (BEAKER) 132 mg/dL 70-105 (test adhl=287) CALCIUM (BEAKER) (test 8.7 mg/dL 8.4-10.2 aktu=377) AST (SGOT) (BEAKER) (test 31 U/L 5-34 Specimen slightly lnzb=973) hemolyzed ALT (SGPT) (BEAKER) (test 41 U/L 6-55 Specimen slightly zntw=488) hemolyzed EGFR (BEAKER) (test 51 mL/min/1.73 sq m ESTIMATED GFR IS NOT nyno=7694) ACCURATE CREATININE CLEARANCE IN PREDICTING GLOMERULAR FILTRATION RATE. ESTIMATED GFR IS NOT APPLICABLE FOR DIALYSIS PATIENTS. [id number] 01:25:00 Test Item Value Reference Range Comments PARTIAL THROMBOPLASTIN TIME (BEAKER) (test 71.6 seconds 22.5-36.0 yuue=558) CBC W/PLT COUNT & AUTO [id number] 01:25:00 Test Item Value Reference Range Comments WHITE BLOOD CELL COUNT (BEAKER) (test albs=933) 10.4 K/ L 3.5-10.5 RED BLOOD CELL COUNT (BEAKER) (test fxgq=044) 3.66 M/ L 4.63-6.08 HEMOGLOBIN (BEAKER) (test zssr=508) 11.4 GM/DL 13.7-17.5 HEMATOCRIT (BEAKER) (test fryl=616) 34.9 % 40.1-51.0 MEAN CORPUSCULAR VOLUME (BEAKER) (test ovjz=763) 95.4 fL 79.0-92.2 MEAN CORPUSCULAR HEMOGLOBIN (BEAKER) (test 31.1 pg 25.7-32.2 aepk=832) MEAN CORPUSCULAR HEMOGLOBIN CONC (BEAKER) (test 32.7 GM/DL 32.3-36.5 fbrr=830) RED CELL DISTRIBUTION WIDTH (BEAKER) (test 12.3 % 11.6-14.4 tkhe=609) PLATELET COUNT (BEAKER) (test ehgp=569) 462 K/CU MM 150-450 MEAN PLATELET VOLUME (BEAKER) (test nxbe=907) 9.6 fL 9.4-12.4 NUCLEATED RED BLOOD CELLS (BEAKER) (test 0 /100 WBC 0-0 gneo=768) NEUTROPHILS RELATIVE PERCENT (BEAKER) (test 63 % cqmm=150) LYMPHOCYTES RELATIVE PERCENT (BEAKER) (test 20 % cycu=890) MONOCYTES RELATIVE PERCENT (BEAKER) (test 9 % odvs=175) EOSINOPHILS RELATIVE PERCENT (BEAKER) (test 7 % uwai=903) BASOPHILS RELATIVE PERCENT (BEAKER) (test 1 % cxio=287) NEUTROPHILS ABSOLUTE COUNT (BEAKER) (test 6.51 K/ L 1.78-5.38 fkof=595) LYMPHOCYTES ABSOLUTE COUNT (BEAKER) (test 2.09 K/ L 1.32-3.57 bfkb=147) MONOCYTES ABSOLUTE COUNT (BEAKER) (test 0.88 K/ L 0.30-0.82 pzfd=972) EOSINOPHILS ABSOLUTE COUNT (BEAKER) (test 0.69 K/ L 0.04-0.54 haim=939) BASOPHILS ABSOLUTE COUNT (BEAKER) (test 0.06 K/ L 0.01-0.08 wstt=235) IMMATURE GRANULOCYTES-RELATIVE PERCENT (BEAKER) 1 % 0-1 (test vlpy=5467) CALCIUM, [id number] 01:18:00 Test Item Value Reference Range Comments CALCIUM IONIZED (BEAKER) (test hsqt=961) 1.13 mmol/L 1.12-1.27 PH, BLOOD (BEAKER) (test vbyd=9777) 7.46 POCT-GLUCOSE [id number] 22:32:00 Test Item Value Reference Range Comments POC-GLUCOSE METER (BEAKER) 155 mg/dL 70-110 : TESTED AT [facility] [address] (test rkav=1605) [facility], [address]: [employer] CE=[id number] for JUSTINO REILLY BASIC METABOLIC [id number] 17:50:00 Test Item Value Reference Range Comments SODIUM (BEAKER) (test 133 meq/L 136-145 epti=545) POTASSIUM (BEAKER) (test 4.8 meq/L 3.5-5.1 Specimen moderately yjpy=152) hemolyzed CHLORIDE (BEAKER) (test 98 meq/L 98-107 mwbh=346) CO2 (BEAKER) (test 26 meq/L 22-29 pqwk=002) BLOOD UREA NITROGEN 23 mg/dL 7-21 (BEAKER) (test ucmt=169) CREATININE (BEAKER) (test 1.20 mg/dL 0.57-1.25 Specimen moderately eric=218) hemolyzed GLUCOSE RANDOM (BEAKER) 151 mg/dL 70-105 (test vsbp=497) CALCIUM (BEAKER) (test 8.9 mg/dL 8.4-10.2 bcdd=080) EGFR (BEAKER) (test 58 mL/min/1.73 sq m ESTIMATED GFR IS NOT ykkb=1123) ACCURATE CREATININE CLEARANCE IN PREDICTING GLOMERULAR FILTRATION RATE. ESTIMATED GFR IS NOT APPLICABLE FOR DIALYSIS PATIENTS. [id number] 17:46:00 Test Item Value Reference Range Comments MAGNESIUM (BEAKER) (test 2.5 mg/dL 1.6-2.6 Specimen moderately hemolyzed ngha=207) [id number] 17:46:00 Test Item Value Reference Range Comments PHOSPHORUS (BEAKER) (test 2.7 mg/dL 2.3-4.7 Specimen moderately hemolyzed phsp=255) [id number] 17:36:00 Test Item Value Reference Range Comments PARTIAL THROMBOPLASTIN TIME (BEAKER) (test 93.0 seconds 22.5-36.0 mpko=374) POCT-GLUCOSE [id number] 17:29:00 Test Item Value Reference Range Comments POC-GLUCOSE METER (BEAKER) 150 mg/dL 70-110 : TESTED AT [facility] [address] [facility] (test dsxc=6588) [facility], [address]: [employer] RM=[id number] for ROSELINE DORSEY [id number] 12:29:00 Test Item Value Reference Range Comments PARTIAL THROMBOPLASTIN TIME (BEAKER) (test 87.8 seconds 22.5-36.0 evgx=728) POCT-GLUCOSE [id number] 12:20:00 Test Item Value Reference Range Comments POC-GLUCOSE METER (BEAKER) 185 mg/dL 70-110 : TESTED AT [facility] [address] [facility] (test orwl=1642) [facility], [address]: [employer] PQ=[id number] for PRABHAKAR CAREY BLOOD [id number] 11:00:00 Test Item Value Reference Range Comments CULTURE (BEAKER) (test ohyo=4355) No growth in 5 days POCT-GLUCOSE [id number] 08:14:00 Test Item Value Reference Range Comments POC-GLUCOSE METER (BEAKER) 123 mg/dL 70-110 : TESTED AT [facility] [address] [facility] (test kbnu=0166) [facility], [address]: [employer] [id number] for PRABHAKAR CAREY BASIC METABOLIC [id number] 08:02:00 Test Item Value Reference Range Comments SODIUM (BEAKER) (test 137 meq/L 136-145 zngr=309) POTASSIUM (BEAKER) (test 3.5 meq/L 3.5-5.1 iywn=554) CHLORIDE (BEAKER) (test 105 meq/L 98-107 rxqa=059) CO2 (BEAKER) (test 23 meq/L 22-29 yvmu=749) BLOOD UREA NITROGEN 20 mg/dL 7-21 (BEAKER) (test dwwb=327) CREATININE (BEAKER) (test 1.01 mg/dL 0.57-1.25 ahui=723) GLUCOSE RANDOM (BEAKER) 116 mg/dL 70-105 (test conm=098) CALCIUM (BEAKER) (test 7.7 mg/dL 8.4-10.2 avum=695) EGFR (BEAKER) (test 71 mL/min/1.73 sq m ESTIMATED GFR IS NOT rpud=6363) ACCURATE CREATININE CLEARANCE IN PREDICTING GLOMERULAR FILTRATION RATE. ESTIMATED GFR IS NOT APPLICABLE FOR DIALYSIS PATIENTS. [id number] 08:00:00 Test Item Value Reference Range Comments PHOSPHORUS (BEAKER) (test tidu=506) 2.6 mg/dL 2.3-4.7 [id number] 08:00:00 Test Item Value Reference Range Comments MAGNESIUM (BEAKER) (test hovt=586) 2.0 mg/dL 1.6-2.6 CBC W/PLT COUNT & AUTO [id number] 05:56:00 Test Item Value Reference Range Comments WHITE BLOOD CELL COUNT (BEAKER) (test eikr=422) 13.7 K/ L 3.5-10.5 RED BLOOD CELL COUNT (BEAKER) (test hkjm=165) 3.48 M/ L 4.63-6.08 HEMOGLOBIN (BEAKER) (test ogxn=563) 11.1 GM/DL 13.7-17.5 HEMATOCRIT (BEAKER) (test lkhg=611) 33.1 % 40.1-51.0 MEAN CORPUSCULAR VOLUME (BEAKER) (test qrpu=076) 95.1 fL 79.0-92.2 MEAN CORPUSCULAR HEMOGLOBIN (BEAKER) (test 31.9 pg 25.7-32.2 tyhw=096) MEAN CORPUSCULAR HEMOGLOBIN CONC (BEAKER) (test 33.5 GM/DL 32.3-36.5 etqz=387) RED CELL DISTRIBUTION WIDTH (BEAKER) (test 12.4 % 11.6-14.4 yvtb=857) PLATELET COUNT (BEAKER) (test knpr=916) 488 K/CU MM 150-450 MEAN PLATELET VOLUME (BEAKER) (test hyod=010) 9.9 fL 9.4-12.4 NUCLEATED RED BLOOD CELLS (BEAKER) (test 0 /100 WBC 0-0 xcxy=816) NEUTROPHILS RELATIVE PERCENT (BEAKER) (test 70 % tdtb=500) LYMPHOCYTES RELATIVE PERCENT (BEAKER) (test 18 % tehr=609) MONOCYTES RELATIVE PERCENT (BEAKER) (test 7 % xotm=918) EOSINOPHILS RELATIVE PERCENT (BEAKER) (test 3 % nfcs=273) BASOPHILS RELATIVE PERCENT (BEAKER) (test 0 % rpea=553) NEUTROPHILS ABSOLUTE COUNT (BEAKER) (test 9.66 K/ L 1.78-5.38 pcua=990) LYMPHOCYTES ABSOLUTE COUNT (BEAKER) (test 2.43 K/ L 1.32-3.57 foyr=758) MONOCYTES ABSOLUTE COUNT (BEAKER) (test 0.99 K/ L 0.30-0.82 vhmm=504) EOSINOPHILS ABSOLUTE COUNT (BEAKER) (test 0.44 K/ L 0.04-0.54 ival=013) BASOPHILS ABSOLUTE COUNT (BEAKER) (test 0.05 K/ L 0.01-0.08 ihrw=419) IMMATURE GRANULOCYTES-RELATIVE PERCENT (BEAKER) 1 % 0-1 (test eomo=2378) CALCIUM, [id number] 05:46:00 Test Item Value Reference Range Comments CALCIUM IONIZED (BEAKER) (test pdoi=995) 1.13 mmol/L 1.12-1.27 PH, BLOOD (BEAKER) (test aouz=0227) 7.43 [id number] 05:46:00 Test Item Value Reference Range Comments PARTIAL THROMBOPLASTIN TIME (BEAKER) (test 108.2 seconds 22.5-36.0 hlxw=980) [id number] 01:19:00 Test Item Value Reference Range Comments PARTIAL THROMBOPLASTIN TIME (BEAKER) (test 103.4 seconds 22.5-36.0 wjpx=131) POCT-GLUCOSE [id number] 22:23:00 Test Item Value Reference Range Comments POC-GLUCOSE METER (BEAKER) 144 mg/dL 70-110 : TESTED AT [address] (test bjsn=5634) [place] [address]: [employer] OW=[id number] for SERGIO ALSTON [id number] 21:48:00 Test Item Value Reference Range Comments MAGNESIUM (BEAKER) (test 2.0 mg/dL 1.6-2.6 Specimen slightly hemolyzed qarn=091) [id number] 21:48:00 Test Item Value Reference Range Comments POTASSIUM (BEAKER) (test 3.5 meq/L 3.5-5.1 Specimen slightly hemolyzed mhuc=660) [id number] 18:54:00 Test Item Value Reference Range Comments PARTIAL THROMBOPLASTIN TIME (BEAKER) (test 64.3 seconds 22.5-36.0 ceyo=894) POCT-GLUCOSE [id number] 17:59:00 Test Item Value Reference Range Comments POC-GLUCOSE METER (BEAKER) 183 mg/dL 70-110 : TESTED AT [place] [id number] [facility] (test baif=2131) [facility], [address]: [employer] CH=[id number] for JENNIFER HART [id number] 17:03:00 Test Item Value Reference Range Comments POTASSIUM (BEAKER) (test sbem=354) 3.9 meq/L 3.5-5.1 [id number] 17:03:00 Test Item Value Reference Range Comments MAGNESIUM (BEAKER) (test ivqk=443) 2.0 mg/dL 1.6-2.6 [id number] 17:03:00 Test Item Value Reference Range Comments PHOSPHORUS (BEAKER) (test sfvb=399) 2.8 mg/dL 2.3-4.7 POCT-GLUCOSE [id number] 16:39:00 Test Item Value Reference Range Comments POC-GLUCOSE METER (BEAKER) 183 mg/dL 70-110 : TESTED AT [address] (test dknu=1933) [facility], [address]: [employer] FV=[id number] for KATE POLANCO CREATININE, RANDOM [id number] 14:32:00 Test Item Value Reference Range Comments CREATININE URINE (BEAKER) (test gmec=740) 25.9 mg/dL Reference Range: No NormalsSODIUM, RANDOM [id number] 14:32:00 Test Item Value Reference Range Comments SODIUM URINE (BEAKER) (test uohy=595) 107 meq/L Reference Range: No NormalsUREA NITROGEN, RANDOM [id number] 14:32:00 Test Item Value Reference Range Comments UREA NITROGEN URINE (BEAKER) (test ojyu=776) 244 mg/dL Reference Range: No [id number] 12:41:00 Test Item Value Reference Range Comments PARTIAL THROMBOPLASTIN TIME (BEAKER) (test 74.7 seconds 22.5-36.0 epjq=178) POCT-GLUCOSE [id number] 12:21:00 Test Item Value Reference Range Comments POC-GLUCOSE METER (BEAKER) 228 mg/dL 70-110 : TESTED AT [facility] [address] (test ctzx=2827) [facility], [address]: [employer] GD=[id number] for KATE POLANCO CALCIUM, [id number] 06:31:00 Test Item Value Reference Range Comments CALCIUM IONIZED (BEAKER) (test cksj=508) 1.12 mmol/L 1.12-1.27 PH, BLOOD (BEAKER) (test wqju=8091) 7.46 [id number] 06:14:00 Test Item Value Reference Range Comments PHOSPHORUS (BEAKER) (test rpru=617) 3.0 mg/dL 2.3-4.7 [id number] 06:14:00 Test Item Value Reference Range Comments MAGNESIUM (BEAKER) (test kjdy=202) 2.0 mg/dL 1.6-2.6 COMPREHENSIVE METABOLIC [id number] 06:14:00 Test Item Value Reference Range Comments TOTAL PROTEIN (BEAKER) 6.8 gm/dL 6.0-8.3 (test hvmo=454) ALBUMIN (BEAKER) (test 3.4 g/dL 3.5-5.0 zxqs=8745) ALKALINE PHOSPHATASE 112 U/L 40-150 (BEAKER) (test bmbu=106) BILIRUBIN TOTAL (BEAKER) 0.6 mg/dL 0.2-1.2 (test hbtu=190) SODIUM (BEAKER) (test 131 meq/L 136-145 kpln=091) POTASSIUM (BEAKER) (test 3.7 meq/L 3.5-5.1 wrzg=241) CHLORIDE (BEAKER) (test 94 meq/L 98-107 hseu=353) CO2 (BEAKER) (test 27 meq/L 22-29 sguu=090) BLOOD UREA NITROGEN 22 mg/dL 7-21 (BEAKER) (test qsgr=365) CREATININE (BEAKER) (test 1.47 mg/dL 0.57-1.25 mlvp=069) GLUCOSE RANDOM (BEAKER) 226 mg/dL 70-105 (test ejbx=162) CALCIUM (BEAKER) (test 8.5 mg/dL 8.4-10.2 ydek=059) AST (SGOT) (BEAKER) (test 20 U/L 5-34 wjug=059) ALT (SGPT) (BEAKER) (test 23 U/L 6-55 ornl=629) EGFR (BEAKER) (test 46 mL/min/1.73 sq m ESTIMATED GFR IS NOT cggg=7638) ACCURATE CREATININE CLEARANCE IN PREDICTING GLOMERULAR FILTRATION RATE. ESTIMATED GFR IS NOT APPLICABLE FOR DIALYSIS PATIENTS. CBC W/PLT COUNT & AUTO [id number] 05:36:00 Test Item Value Reference Range Comments WHITE BLOOD CELL COUNT (BEAKER) (test elza=331) 10.2 K/ L 3.5-10.5 RED BLOOD CELL COUNT (BEAKER) (test hfji=708) 3.49 M/ L 4.63-6.08 HEMOGLOBIN (BEAKER) (test qyje=030) 10.9 GM/DL 13.7-17.5 HEMATOCRIT (BEAKER) (test ktgl=589) 32.6 % 40.1-51.0 MEAN CORPUSCULAR VOLUME (BEAKER) (test yeic=783) 93.4 fL 79.0-92.2 MEAN CORPUSCULAR HEMOGLOBIN (BEAKER) (test 31.2 pg 25.7-32.2 ggnv=943) MEAN CORPUSCULAR HEMOGLOBIN CONC (BEAKER) (test 33.4 GM/DL 32.3-36.5 csvf=813) RED CELL DISTRIBUTION WIDTH (BEAKER) (test 12.0 % 11.6-14.4 bppf=802) PLATELET COUNT (BEAKER) (test dtch=112) 452 K/CU MM 150-450 MEAN PLATELET VOLUME (BEAKER) (test offd=078) 9.5 fL 9.4-12.4 NUCLEATED RED BLOOD CELLS (BEAKER) (test 0 /100 WBC 0-0 qhli=907) NEUTROPHILS RELATIVE PERCENT (BEAKER) (test 88 % hszo=346) LYMPHOCYTES RELATIVE PERCENT (BEAKER) (test 7 % chvl=780) MONOCYTES RELATIVE PERCENT (BEAKER) (test 4 % wtbo=340) EOSINOPHILS RELATIVE PERCENT (BEAKER) (test 0 % ogdm=042) BASOPHILS RELATIVE PERCENT (BEAKER) (test 0 % gtpd=336) NEUTROPHILS ABSOLUTE COUNT (BEAKER) (test 8.96 K/ L 1.78-5.38 rlwu=748) LYMPHOCYTES ABSOLUTE COUNT (BEAKER) (test 0.74 K/ L 1.32-3.57 uagl=348) MONOCYTES ABSOLUTE COUNT (BEAKER) (test 0.39 K/ L 0.30-0.82 qxtu=953) EOSINOPHILS ABSOLUTE COUNT (BEAKER) (test 0.00 K/ L 0.04-0.54 vzlm=009) BASOPHILS ABSOLUTE COUNT (BEAKER) (test 0.01 K/ L 0.01-0.08 eusi=551) IMMATURE GRANULOCYTES-RELATIVE PERCENT (BEAKER) 1 % 0-1 (test jylw=6812) [id number] 05:27:00 Test Item Value Reference Range Comments PARTIAL THROMBOPLASTIN TIME (BEAKER) (test 109.1 seconds 22.5-36.0 sdui=964) [id number] 22:40:00 Test Item Value Reference Range Comments PARTIAL THROMBOPLASTIN TIME (BEAKER) (test 82.3 seconds 22.5-36.0 baol=470) POCT-GLUCOSE [id number] 21:36:00 Test Item Value Reference Range Comments POC-GLUCOSE METER (BEAKER) 316 mg/dL 70-110 : TESTED AT [facility] [address] [place] [address] (test ugzz=0007) [facility], [address]: [employer] [id number] for DEVI ROSAS TISSUE [id number] 17:50:00Surgical Pathology Report Case: [id number] Authorizing Provider: Tre Thomson DPM Collected: 07/19/2019 1318 Ordering Location: [address] Received: 07/20/2019 0848 Service Pathologist: Bart Lam MD Specimens: A) - Soft Tissue, Other, great toe B) - Soft Tissue, Other, Ray partial First C) - Soft Tissue, Other, Clean Margin bone of right toe A. DIGIT, RIGHT GREAT TOE, AMPUTATION: - GANGRENOUS CHANGES - UNDERLYING BONE WITH NO PATHOLOGIC CHANGES.B. BONE AND SOFTTISSUE, RAY PARTIAL FIRST AMPUTATION: - BONE AND SOFT TISSUE WITH NO PATHOLOGIC CHANGESC. BONE, CLEAN MARGIN OF RIGHT TOE, EXCISION: - NO PATHOLOGIC DIAGNOSIS Signing Pathologist Direct PhoneLine: [phone] X [phone], [phone], [phone] X 3Gangrene A. Great toe. B. Ray partial first. C. Clean margin bone of right toeThe case is received fresh in three parts, each labeled with the patient's name and accession number.Part A. 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 The unguis is rios-yellow and detached. The distal 5.5 cm of the toe is blackened and mummified. There is skin slippage throughout. The mummified area is 0.3 cm from the closest skin margin (medial aspect). The specimen is sectioned, and the underlying bone is red-maroon and hemorrhagic. [employer] Lead sections are submitted.Section code:A1, mummified toe to closest skin margin (blue), perpendicular sectionA2, mummified toe with underlying bone , following decalcification Part B. Labeled "ray partial first" is a transected metatarsal head measuring 4.1 cm in length and 2.3 cm in diameter. There is a small amount of attached, dusky, cuba-rios to lave soft tissue. Located subjacent to the articular surface and 2.2 cm from the bone margin is a 0.4 x 0.2 cm defect within the bone. The specimen is sectioned, and no gross lesions are identified. [employer] Lead sections are submitted.Section code:B1, entire bone margin, en face, following decalcificationB2, franchise sales representative of soft tissue adjacent to bone, following decalcification B3, area of defect in bone, following decalcification Part C. Labeled "clean margin bone of right toe" is a 0.6 cm in length and 2.5 x 2 cm transected portion of unoriented bone. The specimen is bisected, and each end is submitted en face in C1-C2, following decalcification. CG/ewPerformed.[id number] 17:25:00 Test Item Value Reference Range Comments POTASSIUM (BEAKER) (test isgj=849) 3.8 meq/L 3.5-5.1 [id number] 17:25:00 Test Item Value Reference Range Comments MAGNESIUM (BEAKER) (test absk=352) 2.1 mg/dL 1.6-2.6 [id number] 17:25:00 Test Item Value Reference Range Comments PHOSPHORUS (BEAKER) (test iiia=961) 3.2 mg/dL 2.3-4.7 POCT-GLUCOSE [id number] 16:39:00 Test Item Value Reference Range Comments POC-GLUCOSE METER (BEAKER) 233 mg/dL 70-110 : Notified RN/MD: TESTED AT (test bysk=2830) [address], [address]: [employer] [id number] for KATE POLANCO POCT-GLUCOSE [id number] 12:02:00 Test Item Value Reference Range Comments POC-GLUCOSE METER (BEAKER) 137 mg/dL 70-110 : TESTED AT [address] (test lyuh=8724) [facility], [address]: [employer] [id number] for KATE POLANCO POCT-GLUCOSE [id number] 08:43:00 Test Item Value Reference Range Comments POC-GLUCOSE METER (BEAKER) 102 mg/dL 70-110 : TESTED AT [address] (test hyvk=0402) [facility], [address]: [employer] [id number] for JINA POLANCOA CBC W/PLT COUNT & AUTO [id number] 07:47:00 Test Item Value Reference Range Comments WHITE BLOOD CELL COUNT (BEAKER) (test ppmf=437) 10.7 K/ L 3.5-10.5 RED BLOOD CELL COUNT (BEAKER) (test mugr=420) 3.50 M/ L 4.63-6.08 HEMOGLOBIN (BEAKER) (test rrio=260) 11.0 GM/DL 13.7-17.5 HEMATOCRIT (BEAKER) (test dmfd=240) 33.7 % 40.1-51.0 MEAN CORPUSCULAR VOLUME (BEAKER) (test hdha=422) 96.3 fL 79.0-92.2 MEAN CORPUSCULAR HEMOGLOBIN (BEAKER) (test 31.4 pg 25.7-32.2 wqqk=382) MEAN CORPUSCULAR HEMOGLOBIN CONC (BEAKER) (test 32.6 GM/DL 32.3-36.5 grac=705) RED CELL DISTRIBUTION WIDTH (BEAKER) (test 12.2 % 11.6-14.4 ejxo=026) PLATELET COUNT (BEAKER) (test mcvq=224) 467 K/CU MM 150-450 MEAN PLATELET VOLUME (BEAKER) (test dyez=890) 9.4 fL 9.4-12.4 NUCLEATED RED BLOOD CELLS (BEAKER) (test 0 /100 WBC 0-0 kinq=878) NEUTROPHILS RELATIVE PERCENT (BEAKER) (test 61 % hnpf=534) LYMPHOCYTES RELATIVE PERCENT (BEAKER) (test 20 % rjht=728) MONOCYTES RELATIVE PERCENT (BEAKER) (test 9 % jrrc=932) EOSINOPHILS RELATIVE PERCENT (BEAKER) (test 8 % uvir=509) BASOPHILS RELATIVE PERCENT (BEAKER) (test 1 % bmoo=415) NEUTROPHILS ABSOLUTE COUNT (BEAKER) (test 6.54 K/ L 1.78-5.38 znfn=891) LYMPHOCYTES ABSOLUTE COUNT (BEAKER) (test 2.10 K/ L 1.32-3.57 qkjl=844) MONOCYTES ABSOLUTE COUNT (BEAKER) (test 1.00 K/ L 0.30-0.82 mksu=837) EOSINOPHILS ABSOLUTE COUNT (BEAKER) (test 0.84 K/ L 0.04-0.54 sgjx=763) BASOPHILS ABSOLUTE COUNT (BEAKER) (test 0.10 K/ L 0.01-0.08 agkt=558) IMMATURE GRANULOCYTES-RELATIVE PERCENT (BEAKER) 1 % 0-1 (test tubt=9891) [id number] 07:21:00 Test Item Value Reference Range Comments MAGNESIUM (BEAKER) (test 1.7 mg/dL 1.6-2.6 Specimen slightly hemolyzed lwxm=284) [id number] 07:21:00 Test Item Value Reference Range Comments PHOSPHORUS (BEAKER) (test 3.5 mg/dL 2.3-4.7 Specimen slightly hemolyzed rawd=923) BASIC METABOLIC [id number] 07:21:00 Test Item Value Reference Range Comments SODIUM (BEAKER) (test 137 meq/L 136-145 kjih=496) POTASSIUM (BEAKER) (test 3.5 meq/L 3.5-5.1 Specimen slightly fzis=587) hemolyzed CHLORIDE (BEAKER) (test 96 meq/L 98-107 hkbx=491) CO2 (BEAKER) (test 33 meq/L 22-29 tfxj=055) BLOOD UREA NITROGEN 13 mg/dL 7-21 (BEAKER) (test vbrx=324) CREATININE (BEAKER) (test 1.11 mg/dL 0.57-1.25 Specimen slightly gxev=581) hemolyzed GLUCOSE RANDOM (BEAKER) 102 mg/dL 70-105 (test tsum=977) CALCIUM (BEAKER) (test 8.4 mg/dL 8.4-10.2 alri=122) EGFR (BEAKER) (test 63 mL/min/1.73 sq m ESTIMATED GFR IS NOT flwf=4642) ACCURATE CREATININE CLEARANCE IN PREDICTING GLOMERULAR FILTRATION RATE. ESTIMATED GFR IS NOT APPLICABLE FOR DIALYSIS PATIENTS. B-TYPE NATRIURETIC FACTOR (BNP)2019-07-30 07:04:00 Test Item Value Reference Range Comments B-TYPE NATRIURETIC PEPTIDE (BEAKER) (test 424 pg/mL 0-100 fqom=297) CALCIUM, [id number] 07:01:00 Test Item Value Reference Range Comments CALCIUM IONIZED (BEAKER) (test rmbj=358) 1.08 mmol/L 1.12-1.27 PH, BLOOD (BEAKER) (test baxx=8475) 7.53 [id number] 06:52:00 Test Item Value Reference Range Comments PARTIAL THROMBOPLASTIN TIME (BEAKER) (test 88.6 seconds 22.5-36.0 agvv=637) RAD, CHEST, 1 VIEW, NON [id number] 04:38:00Reason for exam:->edemaShould this be performed at the bedside?->YesFINAL REPORT RAD , CHEST, 1 VIEW, NON DEPT INDICATION: edema COMPARISON: Radiograph the chest dated 07/28/2019. FINDINGS: Portable frontal view of the chest. IMPRESSION: Lungs and pleura: Unchanged interstitial pulmonary edema pulmonary vascular congestion. Persistent left retrocardiac airspace opacity and small bilateral pleural effusions. No pneumothorax.Heart and mediastinum: Stable contours. Additional findings: None. Signed: Candice Beck Verified Date/ Time: 07/30/2019 04:38:16 [id number] 23:51:00 Test Item Value Reference Range Comments PARTIAL THROMBOPLASTIN TIME (BEAKER) (test 77.0 seconds 22.5-36.0 qxru=611) POCT-GLUCOSE [id number] 22:11:00 Test Item Value Reference Range Comments POC-GLUCOSE METER (BEAKER) 125 mg/dL 70-110 : TESTED AT [address] (test etus=1084) [facility], [address]: [employer] VP=[id number] for KWAME PERLA [id number] 21:18:00 Test Item Value Reference Range Comments PARTIAL THROMBOPLASTIN TIME (BEAKER) (test 122.5 seconds 22.5-36.0 kojc=836) POCT-GLUCOSE [id number] 18:05:00 Test Item Value Reference Range Comments POC-GLUCOSE METER (BEAKER) 184 mg/dL 70-110 : TESTED AT [address] (test rarm=1652) [facility], [address]: [employer] [id number] for HANNA MEADE [id number] 14:41:00 Test Item Value Reference Range Comments PARTIAL THROMBOPLASTIN TIME (BEAKER) (test 49.0 seconds 22.5-36.0 kopc=630) POCT-GLUCOSE [id number] 13:15:00 Test Item Value Reference Range Comments POC-GLUCOSE METER (BEAKER) 138 mg/dL 70-110 : TESTED AT [address] (test iizr=7396) [facility], [address]: [employer] OI=[id number] for HANNA MEADE RAD, ABDOMEN/KUB, 1 VIEW [id number] 11:58:00Reason for exam:->abdominal distnetionShould this be performed at the bedside?->YesFINAL REPORT RAD, ABDOMEN/KUB, 1 VIEW AP CLINICAL INDICATION: abdominal distnetion COMPARISON: None TECHNIQUE: Single, frontal radiograph of the abdomen. FINDINGS: The bowel gas pattern is nonspecific, but nonobstructive. Stomach is distended and air-filled. The regional skeleton is intact. IMPRESSION: Nonspecific, nonobstructive bowel gas pattern. Stomach is distended and air-filled and placement of NG tube is suggested. Signed: Lin Alvarado MDReport Verified Date/Time: 07/29/2019 11:58:28 Reading Location: [facility] Radiology Reading Room LIPID [id number] 11:35:00 Test Item Value Reference Range Comments TRIGLYCERIDES (BEAKER) (test jhmk=683) 126 mg/dL CHOLESTEROL (BEAKER) (test kbkm=340) 136 mg/dL HDL CHOLESTEROL (BEAKER) (test eeyy=526) 28 mg/dL LDL CHOLESTEROL CALCULATED (BEAKER) (test 83 mg/dL chfs=582) Triglyceride Reference Range: Low Risk <150 Borderline 150- 199 High Risk 200-499 Very High Risk >=500Cholesterol Reference Range: Low Risk <200 Borderline 200-239 High Risk > 240HDL Cholesterol Reference Range: Low Risk >=60 High Risk <40LDL Cholesterol Reference Range: Optimal <100 Near Optimal 100-129 Borderline 130-159 High 160-189 Very High >=[id number] 04:42:00 Test Item Value Reference Range Comments PHOSPHORUS (BEAKER) (test eymb=768) 2.8 mg/dL 2.3-4.7 [id number] 04:42:00 Test Item Value Reference Range Comments MAGNESIUM (BEAKER) (test kfal=505) 2.0 mg/dL 1.6-2.6 BASIC METABOLIC [id number] 04:42:00 Test Item Value Reference Range Comments SODIUM (BEAKER) (test 136 meq/L 136-145 veku=016) POTASSIUM (BEAKER) (test 3.6 meq/L 3.5-5.1 ugix=114) CHLORIDE (BEAKER) (test 97 meq/L 98-107 pvkr=090) CO2 (BEAKER) (test 30 meq/L 22-29 sike=417) BLOOD UREA NITROGEN 17 mg/dL 7-21 (BEAKER) (test dpxr=207) CREATININE (BEAKER) (test 1.23 mg/dL 0.57-1.25 jaiv=029) GLUCOSE RANDOM (BEAKER) 120 mg/dL 70-105 (test ndmb=405) CALCIUM (BEAKER) (test 8.3 mg/dL 8.4-10.2 pfvm=601) EGFR (BEAKER) (test 56 mL/min/1.73 sq m ESTIMATED GFR IS NOT opld=5019) ACCURATE CREATININE CLEARANCE IN PREDICTING GLOMERULAR FILTRATION RATE. ESTIMATED GFR IS NOT APPLICABLE FOR DIALYSIS PATIENTS. POCT-GLUCOSE [id number] 04:14:00 Test Item Value Reference Range Comments POC-GLUCOSE METER (BEAKER) 122 mg/dL 70-110 : TESTED AT [facility] [address] (test jqkn=0680) [place], [address]: [employer] [id number] for YESICA LIMA [id number] 03:57:00 Test Item Value Reference Range Comments PARTIAL THROMBOPLASTIN TIME (BEAKER) (test 46.8 seconds 22.5-36.0 mhrd=352) CBC W/PLT COUNT & AUTO [id number] 03:53:00 Test Item Value Reference Range Comments WHITE BLOOD CELL COUNT (BEAKER) (test zawu=516) 12.1 K/ L 3.5-10.5 RED BLOOD CELL COUNT (BEAKER) (test dzpc=313) 3.28 M/ L 4.63-6.08 HEMOGLOBIN (BEAKER) (test akpx=003) 10.2 GM/DL 13.7-17.5 HEMATOCRIT (BEAKER) (test cvxt=669) 31.3 % 40.1-51.0 MEAN CORPUSCULAR VOLUME (BEAKER) (test nvns=530) 95.4 fL 79.0-92.2 MEAN CORPUSCULAR HEMOGLOBIN (BEAKER) (test 31.1 pg 25.7-32.2 rteg=727) MEAN CORPUSCULAR HEMOGLOBIN CONC (BEAKER) (test 32.6 GM/DL 32.3-36.5 csxg=469) RED CELL DISTRIBUTION WIDTH (BEAKER) (test 12.2 % 11.6-14.4 ilpo=119) PLATELET COUNT (BEAKER) (test xqap=314) 451 K/CU MM 150-450 MEAN PLATELET VOLUME (BEAKER) (test npya=747) 9.4 fL 9.4-12.4 NUCLEATED RED BLOOD CELLS (BEAKER) (test 0 /100 WBC 0-0 ztnd=671) NEUTROPHILS RELATIVE PERCENT (BEAKER) (test 73 % hkrv=870) LYMPHOCYTES RELATIVE PERCENT (BEAKER) (test 12 % stpo=171) MONOCYTES RELATIVE PERCENT (BEAKER) (test 8 % spoh=527) EOSINOPHILS RELATIVE PERCENT (BEAKER) (test 5 % epwn=631) BASOPHILS RELATIVE PERCENT (BEAKER) (test 1 % mmft=658) NEUTROPHILS ABSOLUTE COUNT (BEAKER) (test 8.80 K/ L 1.78-5.38 agfn=136) LYMPHOCYTES ABSOLUTE COUNT (BEAKER) (test 1.45 K/ L 1.32-3.57 lnwd=204) MONOCYTES ABSOLUTE COUNT (BEAKER) (test 1.01 K/ L 0.30-0.82 swch=688) EOSINOPHILS ABSOLUTE COUNT (BEAKER) (test 0.59 K/ L 0.04-0.54 ltjr=738) BASOPHILS ABSOLUTE COUNT (BEAKER) (test 0.07 K/ L 0.01-0.08 vqvh=172) IMMATURE GRANULOCYTES-RELATIVE PERCENT (BEAKER) 1 % 0-1 (test rheq=2189) CALCIUM, [id number] 03:36:00 Test Item Value Reference Range Comments CALCIUM IONIZED (BEAKER) (test bqtu=986) 1.11 mmol/L 1.12-1.27 PH, BLOOD (BEAKER) (test rzoz=1137) 7.48 POCT-GLUCOSE [id number] 00:00:00 Test Item Value Reference Range Comments POC-GLUCOSE METER (BEAKER) 145 mg/dL 70-110 : Notified RN/MD: TESTED AT (test lxwj=0842) [address], [address]: [employer] UK=[id number] for BENJAMIN OLIVAS CT, BRAIN, WITHOUT [id number] 17:23:00FINAL REPORT CT, BRAIN, WITHOUT CONTRAST CLINICAL INDICATION: Stroke, followup COMPARISON: July 27, 2019 TECHNIQUE: Noncontrast axial CT imaging of the brain and skull. DOSE REDUCTION: Dose modulation, iterative reconstruction, and /or weight-based adjustment of the mA/kVwas utilized to reduce the radiation dose to as low as reasonably achievable. FINDINGS:No intracranial hemorrhage, midline shift or mass effect. Midline structures are normally developed. Mild chronicmicrovascular ischemic changes of the periventricular and subcortical white matter are present. 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 No hydrocephalus. Atherosclerotic calcification of the intracranial internal carotid and vertebral arteries. Orbits arewithin normal limits. Prior bilateral lens surgery No obstructive paranasal sinus disease. IMPRESSION: No acute intracranial findings If there is persistent clinical concern for intracranial pathology, MR examination is recommended for further characterization. Signed: Lin Alvarado MDReport Verified Date/Time: 07/28/2019 17:23:50 Reading Location: [facility] C013V Neuro Reading Room Electronically signed by: LIN ALVARADO MD on 2018 05:23 PMPOCT-GLUCOSE [id number] 12:31:00 Test Item Value Reference Range Comments POC-GLUCOSE METER (BEAKER) 139 mg/dL 70-110 : Notified RN/MD: TESTED AT (test qund=1210) [place] [id number] [facility], [address]: [employer] [id number] for Elo Keenan [id number] 10:23:00 Test Item Value Reference Range Comments MAGNESIUM (BEAKER) (test ymyo=127) 2.4 mg/dL 1.6-2.6 [id number] 10:20:00 Test Item Value Reference Range Comments PARTIAL THROMBOPLASTIN TIME (BEAKER) (test 39.2 seconds 22.5-36.0 dlwc=251) [id number] 09:02:00 Test Item Value Reference Range Comments RPR SCREEN (BEAKER) (test gdzj=355) Nonreactive Nonreactive POCT-GLUCOSE [id number] 08:23:00 Test Item Value Reference Range Comments POC-GLUCOSE METER (BEAKER) 119 mg/dL 70-110 : TESTED AT [place] [id number] [facility] (test ywhy=1247) [facility], [address]: [employer] MM=[id number] for Sissy Ron HEMOGLOBIN [id number] 08:07:00 Test Item Value Reference Range Comments HEMOGLOBIN A1C (BEAKER) (test mlmr=676) 6.5 % 4.3-6.1 TSH/FREE T4 IF [id number] 06:05:00 Test Item Value Reference Range Comments THYROID STIMULATING HORMONE (BEAKER) (test 4.39 uIU/mL 0.35-4.94 qagq=684) VITAMIN B12 AND [id number] 06:05:00 Test Item Value Reference Range Comments VITAMIN B12 (BEAKER) (test fccm=913) 229 pg/mL 213-816 FOLATE (BEAKER) (test cxjn=086) 9.0 ng/mL >=7.0 [id number] 05:48:00 Test Item Value Reference Range Comments MAGNESIUM (BEAKER) (test 1.9 mg/dL 1.6-2.6 Specimen slightly hemolyzed ohyd=350) [id number] 05:48:00 Test Item Value Reference Range Comments PHOSPHORUS (BEAKER) (test 3.6 mg/dL 2.3-4.7 Specimen slightly hemolyzed xqay=836) COMPREHENSIVE METABOLIC [id number] 05:48:00 Test Item Value Reference Range Comments TOTAL PROTEIN (BEAKER) 6.4 gm/dL 6.0-8.3 Specimen slightly (test rnqb=565) hemolyzed ALBUMIN (BEAKER) (test 3.2 g/dL 3.5-5.0 Specimen slightly yvrg=2214) hemolyzed ALKALINE PHOSPHATASE 100 U/L 40-150 (BEAKER) (test vgdu=487) BILIRUBIN TOTAL (BEAKER) 0.7 mg/dL 0.2-1.2 Specimen slightly (test bdmb=622) hemolyzed SODIUM (BEAKER) (test 134 meq/L 136-145 syzp=060) POTASSIUM (BEAKER) (test 4.0 meq/L 3.5-5.1 Specimen slightly gwgm=479) hemolyzed CHLORIDE (BEAKER) (test 97 meq/L 98-107 zudp=690) CO2 (BEAKER) (test 25 meq/L 22-29 aung=085) BLOOD UREA NITROGEN 16 mg/dL 7-21 (BEAKER) (test wpfy=389) CREATININE (BEAKER) (test 1.17 mg/dL 0.57-1.25 Specimen slightly fxlx=849) hemolyzed GLUCOSE RANDOM (BEAKER) 146 mg/dL 70-105 (test kntk=000) CALCIUM (BEAKER) (test 8.3 mg/dL 8.4-10.2 dbpz=615) AST (SGOT) (BEAKER) (test 25 U/L 5-34 Specimen slightly azwg=248) hemolyzed ALT (SGPT) (BEAKER) (test 19 U/L 6-55 Specimen slightly auid=123) hemolyzed EGFR (BEAKER) (test 60 mL/min/1.73 sq m ESTIMATED GFR IS NOT sqco=7771) ACCURATE CREATININE CLEARANCE IN PREDICTING GLOMERULAR FILTRATION RATE. ESTIMATED GFR IS NOT APPLICABLE FOR DIALYSIS PATIENTS. LIPID [id number] 05:48:00 Test Item Value Reference Range Comments TRIGLYCERIDES (BEAKER) (test 97 mg/dL Specimen slightly hemolyzed bfez=344) CHOLESTEROL (BEAKER) (test 137 mg/dL Specimen slightly hemolyzed ilwz=925) HDL CHOLESTEROL (BEAKER) (test 27 mg/dL wmhu=810) LDL CHOLESTEROL CALCULATED 91 mg/dL (BEAKER) (test ysos=641) Triglyceride Reference Range: Low Risk <150 Borderline 150- 199 High Risk 200-499 Very High Risk >=500Cholesterol Reference Range: Low Risk <200 Borderline 200-239 High Risk > 240HDL Cholesterol Reference Range: Low Risk >=60 High Risk <40LDL Cholesterol Reference Range: Optimal <100 Near Optimal 100-129 Borderline 130-159 High 160-189 Very High >=190CBC W/PLT COUNT & AUTO [id number] 05:29:00 Test Item Value Reference Range Comments WHITE BLOOD CELL COUNT (BEAKER) (test klgc=626) 14.4 K/ L 3.5-10.5 RED BLOOD CELL COUNT (BEAKER) (test shqp=656) 3.47 M/ L 4.63-6.08 HEMOGLOBIN (BEAKER) (test crbs=062) 10.9 GM/DL 13.7-17.5 HEMATOCRIT (BEAKER) (test xzxa=069) 32.9 % 40.1-51.0 MEAN CORPUSCULAR VOLUME (BEAKER) (test pzgy=142) 94.8 fL 79.0-92.2 MEAN CORPUSCULAR HEMOGLOBIN (BEAKER) (test 31.4 pg 25.7-32.2 kuek=903) MEAN CORPUSCULAR HEMOGLOBIN CONC (BEAKER) (test 33.1 GM/DL 32.3-36.5 givg=679) RED CELL DISTRIBUTION WIDTH (BEAKER) (test 12.3 % 11.6-14.4 cksi=598) PLATELET COUNT (BEAKER) (test wldw=010) 474 K/CU MM 150-450 MEAN PLATELET VOLUME (BEAKER) (test gahp=303) 9.2 fL 9.4-12.4 NUCLEATED RED BLOOD CELLS (BEAKER) (test 0 /100 WBC 0-0 omhs=810) NEUTROPHILS RELATIVE PERCENT (BEAKER) (test 78 % smho=439) LYMPHOCYTES RELATIVE PERCENT (BEAKER) (test 9 % zrdc=515) MONOCYTES RELATIVE PERCENT (BEAKER) (test 9 % svac=525) EOSINOPHILS RELATIVE PERCENT (BEAKER) (test 1 % fkxh=553) BASOPHILS RELATIVE PERCENT (BEAKER) (test 1 % xdhf=541) NEUTROPHILS ABSOLUTE COUNT (BEAKER) (test 11.27 K/ L 1.78-5.38 ntil=436) LYMPHOCYTES ABSOLUTE COUNT (BEAKER) (test 1.35 K/ L 1.32-3.57 scfo=425) MONOCYTES ABSOLUTE COUNT (BEAKER) (test 1.34 K/ L 0.30-0.82 ulhg=164) EOSINOPHILS ABSOLUTE COUNT (BEAKER) (test 0.12 K/ L 0.04-0.54 jvfb=641) BASOPHILS ABSOLUTE COUNT (BEAKER) (test 0.07 K/ L 0.01-0.08 bhiy=818) IMMATURE GRANULOCYTES-RELATIVE PERCENT (BEAKER) 2 % 0-1 (test jkwv=6527) BLOOD GAS, [id number] 05:24:00 Test Item Value Reference Range Comments PH ARTERIAL (BEAKER) (test odtz=421) 7.46 7.35-7.45 PCO2 ARTERIAL (BEAKER) (test cylw=485) 42 mmHg 35-45 PO2 ARTERIAL (BEAKER) (test iqgj=673) 97 mmHg 80-90 O2 SATURATION ARTERIAL (BEAKER) (test yseb=196) 97.6 % 96.0-97.0 HCO3 ARTERIAL (BEAKER) (test fvyq=122) 29 mmol/L 21-29 BASE EXCESS ARTERIAL (BEAKER) (test veds=861) 5.1 mmol/L -2.0-3.0 PATIENT TEMPERATURE (BEAKER) (test jtrd=1656) 37.2 C FIO2 (BEAKER) (test xhwx=6816) 30.0 % CALCIUM, [id number] 05:24:00 Test Item Value Reference Range Comments CALCIUM IONIZED (BEAKER) (test zxgr=163) 1.08 mmol/L 1.12-1.27 PH, BLOOD (BEAKER) (test otlj=8327) 7.46 RAD, CHEST, 1 VIEW, NON [id number] 01:30:00Reason for exam:->cardiac arrestShould this be performed at the bedside?->YesFINAL REPORT Chest one view. Clinical history: cardiac arrest Comparison: Chest radiograph 07/27/2019/4:34 PM. Technique: A single frontal view of the chest was obtained. Findings: The cardiac silhouette is enlarged. The aorta is tortuous and atherosclerotic. There is persistent mild pulmonary edema. There are small bilateral pleural effusions. There is a left lower lobe opacity which may represent atelectasis and/or pneumonia. There is no pneumothorax. There is a partially imaged left total shoulder arthroplasty. Impression: Persistent mild pulmonary edema. Small bilateralpleural effusions. Cardiomegaly. Signed: Marc Small MDReport Verified Date/Time: 07/28/2019 01:30:50 . [facility] [id number] 01:15:00 Test Item Value Reference Range Comments TROPONIN I (BEAKER) (test qtnz=495) 0.14 ng/mL 0.00-0.03 Troponin I (TnI) levels must be interpreted in the context of the presenting symptoms and the clinical findings. Elevated TnI levels indicate myocardial damage, but are not specific for ischemic heart disease. Elevated TnI levels are seen in patients with other cardiac conditions (including myocarditis and congestive heart failure), and slight TnI elevations occur in patients with other conditions, including sepsis, renal failure, acidosis, acute neurological disease, and persistent tachyarrhythmia.[id number] 01:09:00 Test Item Value Reference Range Comments PHOSPHORUS (BEAKER) (test rdcv=122) 3.6 mg/dL 2.3-4.7 [id number] 01:09:00 Test Item Value Reference Range Comments MAGNESIUM (BEAKER) (test lzqk=745) 1.7 mg/dL 1.6-2.6 COMPREHENSIVE METABOLIC [id number] 01:09:00 Test Item Value Reference Range Comments TOTAL PROTEIN (BEAKER) 6.9 gm/dL 6.0-8.3 (test vpwf=119) ALBUMIN (BEAKER) (test 3.5 g/dL 3.5-5.0 spxa=5137) ALKALINE PHOSPHATASE 108 U/L 40-150 (BEAKER) (test qnad=813) BILIRUBIN TOTAL (BEAKER) 0.8 mg/dL 0.2-1.2 (test tpnc=352) SODIUM (BEAKER) (test 135 meq/L 136-145 zrif=378) POTASSIUM (BEAKER) (test 3.9 meq/L 3.5-5.1 umsn=675) CHLORIDE (BEAKER) (test 96 meq/L 98-107 uyai=491) CO2 (BEAKER) (test 26 meq/L 22-29 scms=721) BLOOD UREA NITROGEN 15 mg/dL 7-21 (BEAKER) (test mlpe=144) CREATININE (BEAKER) (test 1.25 mg/dL 0.57-1.25 aeos=145) GLUCOSE RANDOM (BEAKER) 147 mg/dL 70-105 (test nhdb=790) CALCIUM (BEAKER) (test 8.9 mg/dL 8.4-10.2 mraa=062) AST (SGOT) (BEAKER) (test 21 U/L 5-34 lcdc=749) ALT (SGPT) (BEAKER) (test 18 U/L 6-55 bryc=441) EGFR (BEAKER) (test 55 mL/min/1.73 sq m ESTIMATED GFR IS NOT xzey=6977) ACCURATE CREATININE CLEARANCE IN PREDICTING GLOMERULAR FILTRATION RATE. ESTIMATED GFR IS NOT APPLICABLE FOR DIALYSIS PATIENTS. LACTIC ACID, [id number] 01:05:00 Test Item Value Reference Range Comments LACTATE BLOOD ARTERIAL (2) (BEAKER) (test 0.8 mmol/L 0.5-2.2 klga=4166) [id number] 01:04:00 Test Item Value Reference Range Comments PARTIAL THROMBOPLASTIN TIME (BEAKER) (test 38.6 seconds 22.5-36.0 zgys=810) [id number] 01:03:00 Test Item Value Reference Range Comments FIBRINOGEN LEVEL (BEAKER) (test ujyb=889) 504 mg/dl 225-434 PROTHROMBIN [id number] 01:02:00 Test Item Value Reference Range Comments PROTIME (BEAKER) (test msug=900) 15.8 seconds 11.9-14.2 INR (BEAKER) (test jcoa=100) 1.3 <=5.9 Effective 12/30/2018: PT Reference Range ChangeNew: 11.9-14.2 Previous: 11.7- 14.7RECOMMENDED COUMADIN/WARFARIN INR THERAPY RANGESSTANDARD DOSE: 2.0-3.0 Includes: PROPHYLAXIS for venous thrombosis, systemic embolization; TREATMENT for venous thrombosis and/or pulmonary embolus.HIGH RISK: Target INR is2.5-3.5 for patients wiht mechanical heart valves.PLATELET [id number] 01:01:00 Test Item Value Reference Range Comments PLATELET COUNT (BEAKER) (test cyaw=900) 517 K/CU MM 150-450 BLOOD GAS, [id number] 00:55:00 Test Item Value Reference Range Comments PH ARTERIAL (BEAKER) (test vrih=058) 7.47 7.35-7.45 PCO2 ARTERIAL (BEAKER) (test hbex=088) 40 mmHg 35-45 PO2 ARTERIAL (BEAKER) (test tvso=765) 130 mmHg 80-90 O2 SATURATION ARTERIAL (BEAKER) (test snbh=084) 98.8 % 96.0-97.0 HCO3 ARTERIAL (BEAKER) (test kodx=991) 28 mmol/L 21-29 BASE EXCESS ARTERIAL (BEAKER) (test oolm=897) 4.4 mmol/L -2.0-3.0 PATIENT TEMPERATURE (BEAKER) (test mywy=9156) 36.9 C FIO2 (BEAKER) (test yqvh=2117) 40.0 % CT, BRAIN, WITHOUT [id number] 00:01:00Acute mutism and decreased LOC after tpaFINAL REPORT EXAM: CT, BRAIN, WITHOUT CONTRAST CLINICAL INDICATION: Concern for stroke. TECHNIQUE: CT images from skull base to vertex without IV contrast. This exam was performed according to the departmental dose optimization program which includes automated exposure control , adjustment of the mA and/or kV according to the patient size, and/or use of an iterative reconstruction technique. COMPARISON: Exam from three hours prior FINDINGS: Parenchyma: No evidence of acuteinfarction. Remote right [employer] territory infarction. No hemorrhage. No mass or mass effect. Patchy andconfluent areas of hypoattenuation are present in the cerebral white matter that are nonspecific butcompatible with moderate chronic microvascular ischemic changes. Extra-axial Collection: None Ventricular System: Ex vacuo enlarged without hydrocephalus Osseous Structures: No acute abnormality Paranasal Sinuses: Predominantly clear Tympanomastoid Cavities: Normal Other: Atherosclerotic intracranial calcifications are present. IMPRESSION:Stable exam. No CT evidence of an acute intracranial abnormality. If there is persistent clinical concern for intracranial pathology, MR examination is recommended for further characterization. Signed: Palma Shaw MDReport Verified Date/Time: 07/28/2019 00:01:43 POCT-GLUCOSE [id number] 22:38:00 Test Item Value Reference Range Comments POC-GLUCOSE METER (BEAKER) 127 mg/dL 70-110 : Notified RN/MD: TESTED AT (test koar=6371) [facility] [address] [place] [address], [address]: [employer] CN=[id number] for ANDRÉS PINK BLOOD GAS, [id number] 21:19:00 Test Item Value Reference Range Comments PH ARTERIAL (BEAKER) (test qgcm=681) 7.49 7.35-7.45 PCO2 ARTERIAL (BEAKER) (test qzov=490) 38 mmHg 35-45 PO2 ARTERIAL (BEAKER) (test klnd=904) 112 mmHg 80-90 O2 SATURATION ARTERIAL (BEAKER) (test louu=797) 98.3 % 96.0-97.0 HCO3 ARTERIAL (BEAKER) (test dtjq=954) 28 mmol/L 21-29 BASE EXCESS ARTERIAL (BEAKER) (test vykq=734) 5.0 mmol/L -2.0-3.0 PATIENT TEMPERATURE (BEAKER) (test lczy=4892) 37.6 C FIO2 (BEAKER) (test kjmd=4933) 28.0 % [id number] 20:21:00 Test Item Value Reference Range Comments PARTIAL THROMBOPLASTIN TIME (BEAKER) (test 42.0 seconds 22.5-36.0 tcif=266) PROTHROMBIN [id number] 20:20:00 Test Item Value Reference Range Comments PROTIME (BEAKER) (test hdkb=127) 15.3 seconds 11.9-14.2 INR (BEAKER) (test efnt=359) 1.3 <=5.9 Effective 12/30/2018: PT Reference Range ChangeNew: 11.9-14.2 Previous: 11.7- 14.7RECOMMENDED COUMADIN/WARFARIN INR THERAPY RANGESSTANDARD DOSE: 2.0-3.0 Includes: PROPHYLAXIS for venous thrombosis, systemic embolization; TREATMENT for venous thrombosis and/or pulmonary embolus.HIGH RISK: Target INR is2.5-3.5 for patients wiht mechanical heart valves.CT, BRAIN, WITHOUT [id number] 20:17:00Bloody Vomiting and decreased speech/ LOC after tpaFINAL REPORT CT, BRAIN, WITHOUT CONTRAST INDICATION: Stroke, follow up TECHNIQUE: Noncontrast axial imaging was obtained from the vertex to the skull base. Axial images were reconstructed using a bone algorithm. DOSE REDUCTION: Dose modulation, iterative reconstruction, and/or weight-based adjustment of the mA/kV was utilized to reduce the radiation dose to as low as reasonablyachievable. COMPARISON: Same day CT head at 1:48 PM FINDINGS: Intracranial: Exam is degraded by motion. Encephalomalacia in the right [employer] territory is again noted. Extensive foci of hypoattenuation within the periventricular and subcortical white matter are a nonspecific finding commonly attributed tochronic small vessel ischemic disease. Generalized cerebral atrophy with ex vacuo dilatation of the ventricular system proportionate to sulci. No intracranial hemorrhage or abnormal extra-axial collection. No evidence of acute territorial infarct. No mass effect. No hydrocephalus. Osseous structures: No fracture. No suspicious lesion. Paranasal sinuses and mastoid air cells: No evidence of sinusitis.Mastoids are clear. Orbital contents : Globes are intact. IMPRESSION: No acute intracranial hemorrhage or territorial infarct. No significant change from six hours prior. If there is persistent clinicalconcern for intracranial pathology, MR examination is recommended for further characterization. Signed: Galina Winters MDReport Verified Date/Time: 07/27/2019 20:17:48 [id number] 20:06:00 Test Item Value Reference Range Comments PHOSPHORUS (BEAKER) (test apyx=967) 3.6 mg/dL 2.3-4.7 [id number] 20:06:00 Test Item Value Reference Range Comments MAGNESIUM (BEAKER) (test zijy=939) 1.8 mg/dL 1.6-2.6 BASIC METABOLIC [id number] 20:06:00 Test Item Value Reference Range Comments SODIUM (BEAKER) (test 134 meq/L 136-145 xnnx=871) POTASSIUM (BEAKER) (test 4.0 meq/L 3.5-5.1 kpty=479) CHLORIDE (BEAKER) (test 96 meq/L 98-107 rbkm=290) CO2 (BEAKER) (test 28 meq/L 22-29 xzcj=928) BLOOD UREA NITROGEN 14 mg/dL 7-21 (BEAKER) (test rkok=680) CREATININE (BEAKER) (test 1.22 mg/dL 0.57-1.25 dpbs=640) GLUCOSE RANDOM (BEAKER) 124 mg/dL 70-105 (test zdfm=761) CALCIUM (BEAKER) (test 8.7 mg/dL 8.4-10.2 vlgq=261) EGFR (BEAKER) (test 57 mL/min/1.73 sq m ESTIMATED GFR IS NOT bujx=2910) ACCURATE CREATININE CLEARANCE IN PREDICTING GLOMERULAR FILTRATION RATE. ESTIMATED GFR IS NOT APPLICABLE FOR DIALYSIS PATIENTS. CBC W/PLT COUNT & AUTO [id number] 19:51:00 Test Item Value Reference Range Comments WHITE BLOOD CELL COUNT (BEAKER) (test stev=946) 15.0 K/ L 3.5-10.5 RED BLOOD CELL COUNT (BEAKER) (test obeh=476) 3.76 M/ L 4.63-6.08 HEMOGLOBIN (BEAKER) (test njdk=560) 11.6 GM/DL 13.7-17.5 HEMATOCRIT (BEAKER) (test gaca=698) 35.5 % 40.1-51.0 MEAN CORPUSCULAR VOLUME (BEAKER) (test mbiu=212) 94.4 fL 79.0-92.2 MEAN CORPUSCULAR HEMOGLOBIN (BEAKER) (test 30.9 pg 25.7-32.2 owwo=742) MEAN CORPUSCULAR HEMOGLOBIN CONC (BEAKER) (test 32.7 GM/DL 32.3-36.5 daul=142) RED CELL DISTRIBUTION WIDTH (BEAKER) (test 12.0 % 11.6-14.4 ovub=530) PLATELET COUNT (BEAKER) (test xiut=205) 536 K/CU MM 150-450 MEAN PLATELET VOLUME (BEAKER) (test jpwz=597) 9.0 fL 9.4-12.4 NUCLEATED RED BLOOD CELLS (BEAKER) (test 0 /100 WBC 0-0 fpna=784) NEUTROPHILS RELATIVE PERCENT (BEAKER) (test 81 % rvda=868) LYMPHOCYTES RELATIVE PERCENT (BEAKER) (test 8 % zogz=457) MONOCYTES RELATIVE PERCENT (BEAKER) (test 8 % rrwo=231) EOSINOPHILS RELATIVE PERCENT (BEAKER) (test 0 % kztp=416) BASOPHILS RELATIVE PERCENT (BEAKER) (test 0 % knlu=041) NEUTROPHILS ABSOLUTE COUNT (BEAKER) (test 12.09 K/ L 1.78-5.38 lifd=348) LYMPHOCYTES ABSOLUTE COUNT (BEAKER) (test 1.22 K/ L 1.32-3.57 zhpv=100) MONOCYTES ABSOLUTE COUNT (BEAKER) (test 1.22 K/ L 0.30-0.82 pxpr=778) EOSINOPHILS ABSOLUTE COUNT (BEAKER) (test 0.02 K/ L 0.04-0.54 iwaj=842) BASOPHILS ABSOLUTE COUNT (BEAKER) (test 0.05 K/ L 0.01-0.08 huyx=729) IMMATURE GRANULOCYTES-RELATIVE PERCENT (BEAKER) 3 % 0-1 (test qyxp=0880) POCT-GLUCOSE [id number] 19:13:00 Test Item Value Reference Range Comments POC-GLUCOSE METER (BEAKER) 109 mg/dL 70-110 : TESTED AT [facility] [address] [facility] (test zqxb=6580) [facility], [address]: [employer] UH=[id number] [place] RAD, CHEST, 1 VIEW, NON [id number] 18:25:00Reason for exam:->cough, concern for aspiratonShould this be performed at the bedside?->YesFINAL REPORT TECHNIQUE: Frontal view of the chest. INDICATION: cough, concernfor aspiraton COMPARISON:12 hours prior IMPRESSION:Lines and hardware: Stable.Heart and mediastinum:Stable.Lungs and pleura: Pulmonary alveolar edema with peribronchial cuffing. Retrocardiac patchy airspace opacity. Small bilateral pleural effusions. Incomplete imaging of the left costophrenic angle.No pneumothorax.Soft tissues and bones: No acute abnormality. Signed: Alexandro Reagan MDReport Verified Date/Time: 07/27/2019 18: 25:16 Reading Location: [facility] [id number] Consult Reading Room Electronicallysigned by: ALEXANDRO REAGAN DO on 07/27/2019 06:25 PMCT, CTANGIO [id number] 14:44:00FINAL REPORT CLINICAL HISTORY: Neuro deficit , acute, stroke suspected TECHNIQUE: Contiguous contrast-enhanced axial images through the neck followed by axial images through the head with coronal and sagittal reformations to assess the arterial circulation. 3-D reconstructions were performed using a volume rendered technique separately on a workstation. This exam was performed according to the departmental dose optimization program which includes automated exposure control, adjustment of the mA and/or kV according to the patient size, and/or use of an iterative reconstruction technique. Stenosis evaluation reported in compliance with NASCET criteria. COMPARISON: Same daynoncontrast CT head FINDINGS: CTA head: Exam is degraded by motion and suboptimal contrast bolus timing. Exam is nondiagnostic for aneurysm. No evidence major branch vessel occlusion. Extensive intracranial calcified atherosclerosis, with likely high-grade stenosis of the bilateral V4 segments and proximal basilar artery. The major intradural venous sinuses are patent. CTA neck:Great vessel origins: No occlusion or high-grade stenosis. Carotid arteries: No occlusion or high-grade stenosis. Vertebral arteries: No occlusion or high-grade stenosis. Advanced degenerative changes of the cervical spine. Diffuse thickening of the visualized proximal esophagus. Bilateral efjsl-zg-llscbwum pleural effusions. IMPRESSION:1.Essentially nondiagnostic exam for high-grade stenosis and aneurysm. No proximal branch vessel occlusion.2.Bilateral frlym-cu-ohsezyih pleural effusions.3.Diffuse mural thickening of the visualized esophagus. Please correlate for esophagitis. Signed: Galina Winters MDRscotort Verified Date/ Time: 07/27/2019 14:44:56 CT, CAROTID, [id number] 14:44:00FINAL REPORT CLINICAL HISTORY: Neuro deficit, acute, stroke suspected TECHNIQUE: Contiguous contrast-enhanced axial images through the neck followed by axial images through the head with coronal and sagittal reformations to assess the arterial circulation. 3-D reconstructions were performed using a volume rendered technique separately on a workstation. This exam was performed according to the departmental dose optimization program which includes automated exposure control, adjustment of the mA and/or kV according to the patient size, and/or use of an iterative reconstruction technique. Stenosis evaluation reported in compliance with NASCET criteria. COMPARISON: Same daynoncontrast CT head FINDINGS: CTA head:Exam is degraded by motion and suboptimal contrast bolus timing. Exam is nondiagnostic for aneurysm. No evidence major branch vessel occlusion. Extensive intracranial calcified atherosclerosis, with likely high-grade stenosis of the bilateral V4 segments and proximal basilar artery. The major intradural venous sinuses are patent. CTA neck:Great vessel origins: No occlusion or high-grade stenosis. Carotid arteries: No occlusion or high-grade stenosis. Vertebral arteries: No occlusion or high-grade stenosis. Advanced degenerative changes of the cervical spine. Diffuse thickening of the visualized proximal esophagus. Bilateral small- to-moderate pleural effusions. IMPRESSION:1.Essentially nondiagnostic exam for high-grade stenosis and aneurysm. No proximal branch vessel occlusion.2.Bilateral gzdny-sv-nqdmtxfp pleural effusions.3.Diffuse mural thickening of the visualized esophagus. Please correlate for esophagitis. Signed : Galina Winters Verified Date/Time: 07/27/2019 14:44:56 CT, BRAIN, WITHOUT [id number] 13:48:00FINAL REPORT CT , BRAIN, WITHOUT CONTRAST INDICATION: Neuro deficit, acute, stroke suspected TECHNIQUE: Noncontrast axial imaging was obtained from the vertex to the skull base. Axial images were reconstructed using a bone algorithm. DOSE REDUCTION: Dose modulation, iterative reconstruction, and/or weight-based adjustment of the mA/kV was utilized to reduce the radiation dose toas low as reasonably achievable. COMPARISON: None. FINDINGS: Remote ischemic changes are present in the right occipital lobe. No acute disruption of the rios-white distinction is identified. There is no parenchymal hemorrhage or abnormal extra-axial fluid. Midline is normally positioned. Global moderate cerebral volume loss is present with chronic microvascular changes in the deep white matter predominantly a periventricular distribution. Osseous structures are unremarkable. Dense calcific atherosclerosis is present in the proximal intracranial circulation. IMPRESSION: Chronic involutional ischemic changes without discernible recent infarct or hemorrhage. If there is persistent clinical concern for intracranial pathology, MR examination is recommended for further characterization. Signed: JR Flannery Robert MDReport Verified Date/Time: 07/27/2019 13:48:02 Reading Location: [address] Neuro Reading Room POCT-BLOOD GASES, [id number] 13:36:00 Test Item Value Reference Range Comments TEMP, CELSIUS-POC (BEAKER) 36.1 (test jtdk=7696) FIO2-POC (BEAKER) (test 36 TESTED AT [place] [address] [address] sklq=9673) [facility] [address] PH, ARTERIAL-POC (BEAKER) 7.547 7.350-7.450 (test dpdy=4398) PCO2, ARTERIAL-POC (BEAKER) 34.0 mm Hg 35.0-45.0 (test vsfa=5643) PO2, ARTERIAL-POC (BEAKER) 59.0 mm Hg 80.0-90.0 (test lrbq=9817) SO2, ARTERIAL-POC (BEAKER) 94.0 % 96.0-97.0 (test prhs=2069) HCO3, ARTERIAL-POC (BEAKER) 29.7 meq/L 21.0-29.0 (test kgdx=8009) BASE EXCESS, ARTERIAL-POC 7.0 meq/L -2.0-3.0 (BEAKER) (test ofbu=0754) [id number] 13:36:00 Test Item Value Reference Range Comments POC-SODIUM (BEAKER) (test 132 meq/L 135-148 TESTED AT [place] [address] [address] tuno=0501) [place] [id number] 13:36:00 Test Item Value Reference Range Comments POC-POTASSIUM (BEAKER) (test 4.1 meq/L 3.6-5.5 TESTED AT [place] [address] [address] ryli=3982) [place] [id number] 13:36:00 Test Item Value Reference Range Comments POC-GLUCOSE (BEAKER) (test 142 mg/dL 70-110 TESTED AT [address] fxnc=6946) [place] [address] POCT-CALCIUM [id number] 13:36:00 Test Item Value Reference Range Comments POC-CALCIUM IONIZED (BEAKER) 1.14 mmol/L 1.12-1.27 TESTED AT [address] (test juul=3732) [place] [address] [id number] 13:36:00 Test Item Value Reference Range Comments POC-HEMATOCRIT (BEAKER) (test 34 % 40-50 TESTED AT [address] ppza=0372) [place] [address] [id number] 13:36:00 Test Item Value Reference Range Comments POC-HEMOGLOBIN (BEAKER) 11.6 g/dL 13.0-16.8 TESTED AT [address] (test opeo=8929) [place] [address]TESTED AT [place] [address] TROPONIN [id number] 11:22:00 Test Item Value Reference Range Comments TROPONIN I (BEAKER) (test rtqi=421) 0.04 ng/mL 0.00-0.03 Troponin I (TnI) levels must be interpreted in the context of the presenting symptoms and the clinical findings. Elevated TnI levels indicate myocardial damage, but are not specific for ischemic heart disease. Elevated TnI levels are seen in patients with other cardiac conditions (including myocarditis and congestive heart failure), and slight TnI elevations occur in patients with other conditions, including sepsis, renal failure, acidosis, acute neurological disease, and persistent tachyarrhythmia.[id number] 10:34:00 Test Item Value Reference Range Comments PROTIME (BEAKER) (test qdkt=752) 14.9 seconds 11.9-14.2 INR (BEAKER) (test haej=052) 1.2 <=5.9 PARTIAL THROMBOPLASTIN TIME (BEAKER) (test 37.3 seconds 22.5-36.0 pufa=648) Effective 12/30/2018: PT Reference Range ChangeNew: 11.9-14.2 Previous: 11.7- 14.7RECOMMENDED COUMADIN/WARFARIN INR THERAPY RANGESSTANDARD DOSE: 2.0-3.0 Includes: PROPHYLAXIS for venous thrombosis, systemic embolization; TREATMENT for venous thrombosis and/or pulmonary embolus.HIGH RISK: Target INR is2.5-3.5 for patients wiht mechanical heart valves.B-TYPE NATRIURETIC FACTOR (BNP)2019-07 10:27:00 Test Item Value Reference Range Comments B-TYPE NATRIURETIC PEPTIDE (BEAKER) (test 1042 pg/mL 0-100 pcur=935) POCT-LACTIC ACID, [id number] 09:46:00 Test Item Value Reference Range Comments POC-LACTIC ACID, ARTERIAL 1.8 mmol/L 0.4-1.3 TESTED AT [address] (BEAKER) (test mcbs=2589) [place] [address] POCT-BLOOD GASES, [id number] 09:46:00 Test Item Value Reference Range Comments TEMP, CELSIUS-POC (BEAKER) 36.3 (test siie=5048) FIO2-POC (BEAKER) (test 100 TESTED AT [address] lysv=9573) [place] [address] PH, ARTERIAL-POC (BEAKER) 7.482 7.350-7.450 (test gcds=4988) PCO2, ARTERIAL-POC (BEAKER) 32.8 mm Hg 35.0-45.0 (test xpeh=6334) PO2, ARTERIAL-POC (BEAKER) 155.0 mm Hg 80.0-90.0 (test hvcq=9745) SO2, ARTERIAL-POC (BEAKER) 100.0 % 96.0-97.0 (test rago=2552) HCO3, ARTERIAL-POC (BEAKER) 24.7 meq/L 21.0-29.0 (test vszf=5126) BASE EXCESS, ARTERIAL-POC 1.0 meq/L -2.0-3.0 (BEAKER) (test jjiu=4896) [id number] 09:46:00 Test Item Value Reference Range Comments POC-SODIUM (BEAKER) (test 131 meq/L 135-148 TESTED AT [address] zgqi=4835) [place] [address] [id number] 09:46:00 Test Item Value Reference Range Comments POC-POTASSIUM (BEAKER) (test 3.6 meq/L 3.6-5.5 TESTED AT [address] wcfr=4181) [place] [id number] 09:46:00 Test Item Value Reference Range Comments POC-GLUCOSE (BEAKER) (test 157 mg/dL 70-110 TESTED AT [address] eqyx=2087) [place] [address] POCT-CALCIUM [id number] 09:46:00 Test Item Value Reference Range Comments POC-CALCIUM IONIZED (BEAKER) 1.12 mmol/L 1.12-1.27 TESTED AT [address] (test kxsp=6013) [place] [address] [id number] 09:46:00 Test Item Value Reference Range Comments POC-HEMATOCRIT (BEAKER) (test 33 % 40-50 TESTED AT [address] lpbp=5612) [place] [address] [id number] 09:46:00 Test Item Value Reference Range Comments POC-HEMOGLOBIN (BEAKER) 11.2 g/dL 13.0-16.8 TESTED AT [address] (test hgrv=7010) [place] [address]TESTED AT [place] [address] [id number] 06:40:00 Test Item Value Reference Range Comments PHOSPHORUS (BEAKER) (test ojnm=984) 2.8 mg/dL 2.3-4.7 [id number] 06:40:00 Test Item Value Reference Range Comments MAGNESIUM (BEAKER) (test smjv=962) 1.9 mg/dL 1.6-2.6 BASIC METABOLIC [id number] 06:40:00 Test Item Value Reference Range Comments SODIUM (BEAKER) (test 132 meq/L 136-145 pqyi=315) POTASSIUM (BEAKER) (test 3.9 meq/L 3.5-5.1 tmki=897) CHLORIDE (BEAKER) (test 98 meq/L 98-107 bsrr=114) CO2 (BEAKER) (test 24 meq/L 22-29 sehg=058) BLOOD UREA NITROGEN 12 mg/dL 7-21 (BEAKER) (test cros=246) CREATININE (BEAKER) (test 1.08 mg/dL 0.57-1.25 bxum=123) GLUCOSE RANDOM (BEAKER) 106 mg/dL 70-105 (test nesf=051) CALCIUM (BEAKER) (test 8.4 mg/dL 8.4-10.2 slpz=016) EGFR (BEAKER) (test 65 mL/min/1.73 sq m ESTIMATED GFR IS NOT giky=1524) ACCURATE CREATININE CLEARANCE IN PREDICTING GLOMERULAR FILTRATION RATE. ESTIMATED GFR IS NOT APPLICABLE FOR DIALYSIS PATIENTS. RAD, CHEST, 1 VIEW, NON [id number] 06:15:00Reason for exam:->edemaShould this be performed at the bedside?->YesFINAL REPORT INDICATION: edema COMPARISON: 07/22/2019 CTA chest TECHNIQUE: Single frontal view of the chest. IMPRESSION: Lungs and pleura: Diffuse pulmonary venous congestion with hazy borders compatible interstitial edema. No airspace consolidation. No sizable pleural effusion.Heart and mediastinum: Mildly enlarged heart. Unremarkable mediastinal contours.Osseous structures: No acute abnormality. Prior left shoulder arthroplasty.Other: None. Signed: Palma Shaw MDReport Verified Date/Time: 07/27/2019 06:15:27 CALCIUM, [id number] 06:07:00 Test Item Value Reference Range Comments CALCIUM IONIZED (BEAKER) (test hubr=984) 1.03 mmol/L 1.12-1.27 PH, BLOOD (BEAKER) (test egar=2987) 7.43 B-TYPE NATRIURETIC FACTOR (BNP)2019-07-27 06:00:00 Test Item Value Reference Range Comments B-TYPE NATRIURETIC PEPTIDE (BEAKER) (test 884 pg/mL 0-100 bfrr=595) CBC (HEMOGRAM ONLY)2019-07-27 05:39:00 Test Item Value Reference Range Comments WHITE BLOOD CELL COUNT (BEAKER) (test zpcw=572) 11.6 K/ L 3.5-10.5 RED BLOOD CELL COUNT (BEAKER) (test dejm=487) 3.44 M/ L 4.63-6.08 HEMOGLOBIN (BEAKER) (test sgav=918) 10.9 GM/DL 13.7-17.5 HEMATOCRIT (BEAKER) (test onqf=858) 32.7 % 40.1-51.0 MEAN CORPUSCULAR VOLUME (BEAKER) (test xaed=603) 95.1 fL 79.0-92.2 MEAN CORPUSCULAR HEMOGLOBIN (BEAKER) (test 31.7 pg 25.7-32.2 sowb=050) MEAN CORPUSCULAR HEMOGLOBIN CONC (BEAKER) (test 33.3 GM/DL 32.3-36.5 cpij=131) RED CELL DISTRIBUTION WIDTH (BEAKER) (test 12.2 % 11.6-14.4 uddh=816) PLATELET COUNT (BEAKER) (test rbes=878) 471 K/CU MM 150-450 MEAN PLATELET VOLUME (BEAKER) (test aqee=660) 9.4 fL 9.4-12.4 NUCLEATED RED BLOOD CELLS (BEAKER) (test 0 /100 WBC 0-0 kzla=437) POCT-GLUCOSE [id number] 22:03:00 Test Item Value Reference Range Comments POC-GLUCOSE METER (BEAKER) 164 mg/dL 70-110 : TESTED AT [address] (test ibjo=6281) [facility], [address]: [employer] OF=[id number] for DONAL SILVEROINA POCT-GLUCOSE [id number] 17:43:00 Test Item Value Reference Range Comments POC-GLUCOSE METER (BEAKER) 162 mg/dL 70-110 : TESTED AT [address] (test zdar=1709) [facility], [address]: [employer] IB=[id number] for HATCH, [place] POCT-GLUCOSE [id number] 15:42:00 Test Item Value Reference Range Comments POC-GLUCOSE METER (BEAKER) 143 mg/dL 70-110 : TESTED AT [address] (test wvdm=8501) [facility], [address]: [employer] RQ=[id number] for HATCH, [place] POCT-GLUCOSE [id number] 08:20:00 Test Item Value Reference Range Comments POC-GLUCOSE METER (BEAKER) 73 mg/dL 70-110 : Notified RN/MD: TESTED AT (test fiba=7594) [address], [address]: [employer] QL=[id number] for EBONY [place]ITT[place] [id number] 06:35:00 Test Item Value Reference Range Comments PHOSPHORUS (BEAKER) (test gdht=766) 2.9 mg/dL 2.3-4.7 [id number] 06:35:00 Test Item Value Reference Range Comments MAGNESIUM (BEAKER) (test rmmn=894) 2.0 mg/dL 1.6-2.6 BASIC METABOLIC [id number] 06:35:00 Test Item Value Reference Range Comments SODIUM (BEAKER) (test 132 meq/L 136-145 fmfd=861) POTASSIUM (BEAKER) (test 3.7 meq/L 3.5-5.1 jxzh=865) CHLORIDE (BEAKER) (test 99 meq/L 98-107 gmay=717) CO2 (BEAKER) (test 21 meq/L 22-29 ikco=530) BLOOD UREA NITROGEN 13 mg/dL 7-21 (BEAKER) (test xaxc=048) CREATININE (BEAKER) (test 1.12 mg/dL 0.57-1.25 nmmd=912) GLUCOSE RANDOM (BEAKER) 60 mg/dL 70-105 (test vwbw=474) CALCIUM (BEAKER) (test 8.4 mg/dL 8.4-10.2 guay=350) EGFR (BEAKER) (test 63 mL/min/1.73 sq m ESTIMATED GFR IS NOT wcmr=9381) ACCURATE CREATININE CLEARANCE IN PREDICTING GLOMERULAR FILTRATION RATE. ESTIMATED GFR IS NOT APPLICABLE FOR DIALYSIS PATIENTS. POCT-GLUCOSE [id number] 22:24:00 Test Item Value Reference Range Comments POC-GLUCOSE METER (BEAKER) 100 mg/dL 70-110 : TESTED AT [address] (test ravk=8991) [facility], [address]: [employer] EY=[id number] for FORREST SEGOVIA POCT-GLUCOSE [id number] 21:43:00 Test Item Value Reference Range Comments POC-GLUCOSE METER (BEAKER) 47 mg/dL 70-110 : TESTED AT [address] (test llbz=6140) [facility], [address]: [employer] WJ=[id number] for HTANH SEGOVIAINE BASIC METABOLIC [id number] 17:45:00 Test Item Value Reference Range Comments SODIUM (BEAKER) (test 133 meq/L 136-145 ngme=118) POTASSIUM (BEAKER) (test 4.0 meq/L 3.5-5.1 Specimen slightly erjc=853) hemolyzed CHLORIDE (BEAKER) (test 99 meq/L 98-107 qikt=959) CO2 (BEAKER) (test 24 meq/L 22-29 gwhv=759) BLOOD UREA NITROGEN 15 mg/dL 7-21 (BEAKER) (test etsm=914) CREATININE (BEAKER) (test 1.23 mg/dL 0.57-1.25 Specimen slightly fraz=832) hemolyzed GLUCOSE RANDOM (BEAKER) 72 mg/dL 70-105 (test uwqk=780) CALCIUM (BEAKER) (test 8.7 mg/dL 8.4-10.2 rgqu=039) EGFR (BEAKER) (test 56 mL/min/1.73 sq m ESTIMATED GFR IS NOT imiz=3149) ACCURATE CREATININE CLEARANCE IN PREDICTING GLOMERULAR FILTRATION RATE. ESTIMATED GFR IS NOT APPLICABLE FOR DIALYSIS PATIENTS. Notify renal if Cr > 1.6713 790 1032POCT-GLUCOSE [id number] 17:33:00 Test Item Value Reference Range Comments POC-GLUCOSE METER (BEAKER) 74 mg/dL 70-110 : TESTED AT [address] (test pzpg=6305) [facility], [address]: [employer] MR=[id number] for OPAL BURCH POCT-GLUCOSE [id number] 12:22:00 Test Item Value Reference Range Comments POC-GLUCOSE METER (BEAKER) 83 mg/dL 70-110 : TESTED AT [address] (test flwj=3857) [facility], [address]: [employer] EC=[id number] for Patrice Natalie POCT-GLUCOSE [id number] 10:03:00 Test Item Value Reference Range Comments POC-GLUCOSE METER (BEAKER) 138 mg/dL 70-110 : TESTED AT [address] (test sece=2801) [facility], [address]: [employer] PV=[id number] for KIERSTEN, OPAL POCT-GLUCOSE [id number] 07:24:00 Test Item Value Reference Range Comments POC-GLUCOSE METER (BEAKER) 72 mg/dL 70-110 : TESTED AT [address] (test xups=4237) [facility], [address]: [employer] FG=[id number] for TIFFANY CARVAJAL POCT-GLUCOSE [id number] 20:57:00 Test Item Value Reference Range Comments POC-GLUCOSE METER (BEAKER) 87 mg/dL 70-110 : TESTED AT [address] (test vafx=7208) [facility], [address]: [employer] UL=[id number] for FORREST SEGOVIA POCT-GLUCOSE [id number] 18:26:00 Test Item Value Reference Range Comments POC-GLUCOSE METER (BEAKER) 105 mg/dL 70-110 : TESTED AT [address] (test hpev=3634) [facility], [address]: [employer] EC=[id number] for Natalie Ibrahim POCT-GLUCOSE [id number] 13:11:00 Test Item Value Reference Range Comments POC-GLUCOSE METER (BEAKER) 131 mg/dL 70-110 : TESTED AT [address] (test jpts=7584) [facility], [address]: [employer] JH=[id number] for Natalie Ibrahim BLOOD [id number] 09:02:00 Test Item Value Reference Range Comments CULTURE (BEAKER) (test fibq=2498) No growth in 5 days BLOOD [id number] 09:02:00 Test Item Value Reference Range Comments CULTURE (BEAKER) (test weyd=2372) No growth in 5 days POCT-GLUCOSE [id number] 08:56:00 Test Item Value Reference Range Comments POC-GLUCOSE METER (BEAKER) 147 mg/dL 70-110 : TESTED AT [address] (test biis=9743) [facility], [address]: [employer] JL=[id number] for Natalie Ibrahim CBC W/PLT COUNT & AUTO [id number] 06:03:00 Test Item Value Reference Range Comments WHITE BLOOD CELL COUNT (BEAKER) (test fohd=094) 12.5 K/ L 3.5-10.5 RED BLOOD CELL COUNT (BEAKER) (test epdk=646) 3.43 M/ L 4.63-6.08 HEMOGLOBIN (BEAKER) (test gwnp=389) 10.9 GM/DL 13.7-17.5 HEMATOCRIT (BEAKER) (test fzqr=967) 32.9 % 40.1-51.0 MEAN CORPUSCULAR VOLUME (BEAKER) (test nxmc=899) 95.9 fL 79.0-92.2 MEAN CORPUSCULAR HEMOGLOBIN (BEAKER) (test 31.8 pg 25.7-32.2 ttsy=763) MEAN CORPUSCULAR HEMOGLOBIN CONC (BEAKER) (test 33.1 GM/DL 32.3-36.5 lsef=025) RED CELL DISTRIBUTION WIDTH (BEAKER) (test 12.2 % 11.6-14.4 pfnb=831) PLATELET COUNT (BEAKER) (test ambv=896) 471 K/CU MM 150-450 MEAN PLATELET VOLUME (BEAKER) (test tnss=747) 9.3 fL 9.4-12.4 NUCLEATED RED BLOOD CELLS (BEAKER) (test 0 /100 WBC 0-0 vyel=000) NEUTROPHILS RELATIVE PERCENT (BEAKER) (test 72 % rztm=638) LYMPHOCYTES RELATIVE PERCENT (BEAKER) (test 15 % jbkw=098) MONOCYTES RELATIVE PERCENT (BEAKER) (test 10 % yuao=237) EOSINOPHILS RELATIVE PERCENT (BEAKER) (test 2 % hlwx=023) BASOPHILS RELATIVE PERCENT (BEAKER) (test 1 % duvk=306) NEUTROPHILS ABSOLUTE COUNT (BEAKER) (test 8.95 K/ L 1.78-5.38 bqvu=221) LYMPHOCYTES ABSOLUTE COUNT (BEAKER) (test 1.83 K/ L 1.32-3.57 tkfd=096) MONOCYTES ABSOLUTE COUNT (BEAKER) (test 1.24 K/ L 0.30-0.82 lncx=892) EOSINOPHILS ABSOLUTE COUNT (BEAKER) (test 0.29 K/ L 0.04-0.54 dpec=915) BASOPHILS ABSOLUTE COUNT (BEAKER) (test 0.06 K/ L 0.01-0.08 wqrp=686) IMMATURE GRANULOCYTES-RELATIVE PERCENT (BEAKER) 1 % 0-1 (test fuhm=9671) [id number] 05:56:00 Test Item Value Reference Range Comments PHOSPHORUS (BEAKER) (test gofm=366) 3.1 mg/dL 2.3-4.7 [id number] 05:56:00 Test Item Value Reference Range Comments MAGNESIUM (BEAKER) (test baob=767) 2.4 mg/dL 1.6-2.6 BASIC METABOLIC [id number] 05:56:00 Test Item Value Reference Range Comments SODIUM (BEAKER) (test 135 meq/L 136-145 mwwq=032) POTASSIUM (BEAKER) (test 4.5 meq/L 3.5-5.1 nzte=690) CHLORIDE (BEAKER) (test 101 meq/L 98-107 dkna=355) CO2 (BEAKER) (test 25 meq/L 22-29 mmos=015) BLOOD UREA NITROGEN 17 mg/dL 7-21 (BEAKER) (test tokc=780) CREATININE (BEAKER) (test 1.56 mg/dL 0.57-1.25 quda=089) GLUCOSE RANDOM (BEAKER) 131 mg/dL 70-105 (test olfi=707) CALCIUM (BEAKER) (test 8.8 mg/dL 8.4-10.2 inmm=013) EGFR (BEAKER) (test 43 mL/min/1.73 sq m ESTIMATED GFR IS NOT vrsx=4583) ACCURATE CREATININE CLEARANCE IN PREDICTING GLOMERULAR FILTRATION RATE. ESTIMATED GFR IS NOT APPLICABLE FOR DIALYSIS PATIENTS. CREATINE KINASE (CK)2019-07-24 05:56:00 Test Item Value Reference Range Comments CREATINE KINASE TOTAL (BEAKER) (test euvh=986) 84 U/L 29-200 POCT-GLUCOSE [id number] 21:33:00 Test Item Value Reference Range Comments POC-GLUCOSE METER (BEAKER) 233 mg/dL 70-110 : TESTED AT [facility] [address] [facility] (test vblz=0033) [facility], [address]: [employer] [id number] for NIXON SAENZ III URINALYSIS W/ [id number] 19:42:00 Test Item Value Reference Range Comments COLOR (BEAKER) (test seop=438) Yellow CLARITY (BEAKER) (test cjfu=758) Clear SPECIFIC GRAVITY UA (BEAKER) (test 1.036 1.001-1.035 mjqh=404) PH UA (BEAKER) (test epyt=525) 5.5 5.0-8.0 PROTEIN UA (BEAKER) (test eeaa=932) 20 mg/dL Negative GLUCOSE UA (BEAKER) (test ozto=924) Negative Negative KETONES UA (BEAKER) (test lgln=106) Trace Negative BILIRUBIN UA (BEAKER) (test eryz=614) Negative Negative BLOOD UA (BEAKER) (test nvwu=588) Negative Negative NITRITE UA (BEAKER) (test grzz=660) Negative Negative LEUKOCYTE ESTERASE UA (BEAKER) (test Trace Negative uskm=923) UROBILINOGEN UA (BEAKER) (test wzqg=733) 0.2 mg/dL 0.2-1.0 RBC UA (BEAKER) (test hdtx=808) < /HPF WBC UA (BEAKER) (test wthx=235) 3 /HPF SQUAMOUS EPITHELIAL (BEAKER) (test < /HPF ezbr=964) AMORPHOUS CRYSTALS (BEAKER) (test Rare vusv=8161) YEAST (BEAKER) (test ycjf=8553) Rare SOURCE(BEAKER) (test ihsi=6916) Urine, Clean Catch CREATININE, RANDOM [id number] 19:03:00 Test Item Value Reference Range Comments CREATININE URINE (BEAKER) (test iovj=835) 117.9 mg/dL Reference Range: No NormalsPROTEIN, RANDOM [id number] 19:03:00 Test Item Value Reference Range Comments PROTEIN, URINE (BEAKER) (test pcma=9847) 43 mg/dL 0-14 SODIUM, RANDOM [id number] 19:03:00 Test Item Value Reference Range Comments SODIUM URINE (BEAKER) (test ario=942) 54 meq/L Reference Range: No NormalsANAEROBIC [id number] 18:42:00 Test Item Value Reference Range Comments CULTURE (BEAKER) (test 4+ Same organism has been isolated kkjq=8933) from culture(s) of the same body site and collection date. Repeat identification performed only after consultation with the clinical microbiology laboratory.Refer to previous culture ofBacteroides fragilis ANAEROBIC [id number] 18:38:00 Test Item Value Reference Range Comments CULTURE (BEAKER) (test ooxf=3846) 3+ Bacteroides fragilis POCT-GLUCOSE [id number] 13:34:00 Test Item Value Reference Range Comments POC-GLUCOSE METER (BEAKER) 97 mg/dL 70-110 : [facility] [address] [facility] (test knzu=9069) [facility], [address]: [employer] [id number] for Natalie Ibrahim CT, CTA, [id number] 12:33:00Addendum BeginsREPORT STATUS:A I agree with the nonvascular findings detailedby Dr. Austin. Additional findings include: *Indeterminate 0.7 x 1.6 cm lobulated structure in the right middle lobe. Differential considerations include vascular structure, infectious/inflammatory process, and neoplasm. Follow-up chest CT is recommended in three months for reassessment.*Few 3-4 mm noncalcified nodules in the left upper and left lower lobes, respectively. The patient is at high risk for lung neoplasm, then optional follow-up chest CT may be obtained in 12 months for reassessment these nodules. Otherwise, no routine follow-up imaging recommended. Signed: Nathalie Alan MDReport Verified Date/Time: 07/23/2019 12 :33:11 Reading Location: [facility] Diagnostic Imaging Reading Room - [place] [id number] EndsAddendum BeginsREPORT STATUS:A ADDENDUM : Artifact is identified in the left shoulder level indicating prior joint replacement. This is well seen in the topogram. Signed: Cj Austin MDReport Verified Date/Time: 07/23/2019 08:31:[address] angiography of the thoracoabdominal aorta and pelvic arteries, Jul 22INDICATION: This is a 83 year old male with a diagnosis of aortic stenosis, presents of preprocedureTAVR assessment. TECHNIQUE: Spiral acquisition before and during intravenous contrast administration using a Shreyas multidetector CT scanner. Images were obtained before and during the dynamic passage of intravenous contrast material. Multi-planar 3-D volume- rendering reconstruction was performed using an independent workstation interactively by the interpreting physician as well as the 3-D specialist for optimal visualisation of the thoracic aorta. Please refer to the contrast sheet scanned in the EPIC system for the amount and route of contrast given. This exam was performed according to our departmental dose-optimisation programme, which includes automated exposure control, adjustment of themA and/or kV according to patient size and/or use of iterative reconstruction technique. Dose modulation, iterative reconstruction, and/or weight based adjustment of the mA/kV was utilized to reduce the radiation dose to as low as reasonably achievable. FINDINGS: VASCULAR: The pericardium appears unremarkable. No pericardial effusion is identified. The central pulmonary artery is mildly prominent. No evidence of central pulmonary artery embolism is identified. The cardiac chambers demonstrate normal atrioventricular and ventriculoarterial concordance, and systemic and pulmonary venous return. The left ventricle is enlarged. Left atrial enlargement is identified. Minimal mitral annular calcification is identified superiorly. Coronary artery origins are normal. The left coronary artery is widely patent. Stent versus diffuse calcification is identified in the LAD territory. Diffuse calcification is identified in the LCx and RCA territory. Patient has a diagnosis of aortic stenosis. The aortic valve is tricuspid. The aortic Agatston score is 1425. The aortic valve is not well measured. The location of aortic valvular calcification can be seen in reformatted data set sent to PACS. Regarding the aorta, there is minimal calcification seen in the aortic root and ascending thoracic aorta. The transverse arch and descending thoracic aorta is mild calcific and noncalcific atherosclerosis identified.No ectasia or aneurysmal dilation is seen. In the recent examination, circumferential calcification is identified infrarenal abdominal aorta, with no obstructive lesion identified. In addition, substantial calcific lesion is seen at the ostium of the SMA and coeliac axis. This also substantial calcification observed in the takeoff of the right renal artery. Some eccentric calcification is also seen in the takeoff of the left renal artery. Assessment at these level is therefore limited. There is no evidence of acute aortic pathology, specifically, there is no dissection, intramural hematoma, or contained rupture. The arch vessel branching pattern is normal and the visualised arch vessels are widely patent proximally. Calcification is seen in the takeoff of the left subclavian artery at image 73 at its origin, it measures approximately 8.3 x 8.8 mm in diameter. At image 25, the left subclavian artery measures 7 mm in diameter. Regarding the right subclavian artery, mild passive indication identified proximally. At image 11, it measures 7 to 8 mm in diameter. Dimensions that may be helpful for TAVR as follows: There is only minimal calcification identified at the aortic root/ ascending thoracic aorta The major and minor aortic annulus diameter measures 32.8 and 24.7 mm, respectively. The aorticannulus perimeter measured 87 mm and the cross-sectional area measures 575 mm2. The aortic annulus diameter at the traditional LVOT and coronal LVOT measures 21.5 and 27.4 mm, respectively. For reference purpose, per [employer] S3 brochure, recommendation are as follows: CT area between 273 to 345 mm2 (20 mm valve); 338 to 430 mm2 (23 mm valve); 430 to 546 mm2 (26 mm valve); 540 to 683 mm2 (29 mm valve). For reference purpose, per [employer] brochure, recommendation are as follows: CT perimeterbetween 56.5-62.8 mm (23 mm valve); 62.8-72.3 mm (26 mm valve); 72.3-81.7 mm (29 mm valve); and 81.7-94.2. mm (34 mm valve). For reference purpose, per [employer] brochure, recommendation are as follows: 23mm valve is recommended for CT perimeter between 62.8-72.3 mm; diameter between 20-23 mm; or area between 314- 415.5 mm2. For 25mm valve, it is recommended for CT perimeter between 72.3-78.5 mm; diameter between 23-25 mm; or area between 415.5-490.9 mm2. For 27mm valve , it is recommended for CT perimeter between 78.5-84.8 mm; diameter between 25- 27 mm; or area between 490.9-572.6 mm2. Agatston Score is 1425. The distance between the take off of the RCA and the annulus (systole): 18.0 mmThe distance between the take off of the LM and the annulus (systole): 14.0 mm The sinus of Valsalva diameter, RCC (systole): 34.6 mmThe sinus of Valsalva diameter, LCC ( systole): 35.9 mmThe sinus of Valsalva diameter, NCC (systole): 33.4 mm The sinotubular junction measures, 30.6 x 32.6 mm mm. The aortic root angulation measures 32.4 degrees. The minimal and perpendicular abdominal aortic diameter measure 13.0 and 13.6 mm, respectively. There is no evidence of thoracoabdominal aortic aneurysm or stent placement present. The minimum and the perpendicular left common iliac artery measures 4.3 and 6.3 mm, respectively with mild tortuosity and at least moderate calcific atherosclerosis present, at image 163. The minimum and the perpendicular left external iliac artery measures 5.9 and 6.3 mm, respectively with mild tortuosity and mild calcific atherosclerosis present. The minimum and the perpendicular left femoral artery measures 6.2 and 6.7 mm, respectively with mild tortuosity and mild calcific atherosclerosis present. The minimum and the perpendicular right common iliac artery measures 8.0 and 8.5 mm, respectively with mildly tortuosity and mild calcific atherosclerosis present. The minimum and the perpendicular right external iliac artery measures 6.6 and 7.6 mm, respectively with mild tortuosity and mild calcific atherosclerosis present. The minimum and the perpendicular right femoral artery measures 5.5 and 6.9 mm, respectively with mild tortuosity and mild to moderate calcificatherosclerosis present, at image 251. NON-VASCULAR: The visualised thyroid gland is unremarkable. The chest wall and mediastinum appear normal. No significant adenopathy is identified. In the lung windows, no obvious endobronchial lesion is seen and no pleural effusion is identified. Mild degree offparaseptal emphysematous changes are seen, best seen in the upper lobes. Calcified granuloma is identified at image 106 of the left upper lobe. Dependent changes are seen in the lung bases. Tiny nodular opacities are seen in the right fissure, at image 155 indicating interfissural lymph node. Furthermore, in the right middle lobe, at image 196, linear opacity is identified, and by multiplanar reformation in the coronal orientation, it is uncertain if this could represent scarring. See snapshot for details. Please see arrows in PACS for details. An addendum will be dictated thereafter, if needed. The abdomen has been dictated by the Director Radiation Oncology Radiologist recently. See formal report for details. Small gallstones are seen in the gallbladder with no wall thickening identified. Renal stone is identified in the right kidney incompletely imaged and also possibly in the left kidney. In the bony windows, no acute bony pathology is seen. Some degenerative changes is noted. CONCLUSIONS: 1. Patient has a diagnosis of aortic stenosis. The aortic valve is tricuspid. The aortic Agatston Score is over 1400 and aortic valve area is not well measured. Minimal mitral annular calcification is seen superiorly. There is mild calcification seen in the aortic root/ascending thoracic aorta. Dimensions that maybe helpful for TAVR as described above. Regarding the pelvic arteries, there is at least moderate calcification identified the left common iliac artery with minimum luminal diameter of 4.3 x 6.3 mm. The right pelvic arteries has more optimal calibre, however, at the mid level of the right femoral head, at image 251, [id number] focal calcification is seen with minimum luminal diameter still 5.5x 6.9 mm. However, in the very distal right common femoral artery, image 263, severe calcification is seen; this is located in the inferior aspect of the right femoral head. 2. Coronary artery originsare normal and diffuse calcification is identified.. 3. The central pulmonary artery is mildly prominent. There is no evidence of central pulmonary artery embolism. Mild pulmonary emphysematous changes are seen. Evidence of prior granulomatous disease. Pulmonary findings as described above. 4. Other findings as described above. 5. An addendum will be dictated regarding the non- vascular findings by the Director Radiation Oncology Radiologist. Signed: Cj Austin MDReport Verified Date/Time: 07/23/2019 08:10:11 POCT-GLUCOSE [id number] 10: 13:00 Test Item Value Reference Range Comments POC-GLUCOSE METER (BEAKER) 83 mg/dL 70-110 : TESTED AT [facility] [address] [facility] (test odvb=6062) [facility], [address]: [employer] LL=[id number] for JUDY NOGUEIRA BASIC METABOLIC [id number] 07:03:00 Test Item Value Reference Range Comments SODIUM (BEAKER) (test 138 meq/L 136-145 ozdl=434) POTASSIUM (BEAKER) (test 4.0 meq/L 3.5-5.1 xzmp=630) CHLORIDE (BEAKER) (test 103 meq/L 98-107 ujww=624) CO2 (BEAKER) (test 23 meq/L 22-29 epbm=809) BLOOD UREA NITROGEN 15 mg/dL 7-21 (BEAKER) (test txzl=551) CREATININE (BEAKER) (test 1.57 mg/dL 0.57-1.25 kbuk=501) GLUCOSE RANDOM (BEAKER) 54 mg/dL 70-105 (test bjgd=877) CALCIUM (BEAKER) (test 8.7 mg/dL 8.4-10.2 tzuy=121) EGFR (BEAKER) (test 42 mL/min/1.73 sq m ESTIMATED GFR IS NOT iivd=8360) ACCURATE CREATININE CLEARANCE IN PREDICTING GLOMERULAR FILTRATION RATE. ESTIMATED GFR IS NOT APPLICABLE FOR DIALYSIS PATIENTS. CBC (HEMOGRAM ONLY)2019-07-23 06:36:00 Test Item Value Reference Range Comments WHITE BLOOD CELL COUNT (BEAKER) (test fmce=717) 13.1 K/ L 3.5-10.5 RED BLOOD CELL COUNT (BEAKER) (test jvyz=954) 3.81 M/ L 4.63-6.08 HEMOGLOBIN (BEAKER) (test mrne=535) 11.8 GM/DL 13.7-17.5 HEMATOCRIT (BEAKER) (test hepf=461) 36.6 % 40.1-51.0 MEAN CORPUSCULAR VOLUME (BEAKER) (test miqj=318) 96.1 fL 79.0-92.2 MEAN CORPUSCULAR HEMOGLOBIN (BEAKER) (test 31.0 pg 25.7-32.2 rlrp=509) MEAN CORPUSCULAR HEMOGLOBIN CONC (BEAKER) (test 32.2 GM/DL 32.3-36.5 gyet=504) RED CELL DISTRIBUTION WIDTH (BEAKER) (test 12.0 % 11.6-14.4 xsxz=282) PLATELET COUNT (BEAKER) (test dmfd=454) 503 K/CU MM 150-450 MEAN PLATELET VOLUME (BEAKER) (test fgdf=249) 9.2 fL 9.4-12.4 NUCLEATED RED BLOOD CELLS (BEAKER) (test 0 /100 WBC 0-0 mpnv=245) POCT-GLUCOSE [id number] 22:08:00 Test Item Value Reference Range Comments POC-GLUCOSE METER (BEAKER) 83 mg/dL 70-110 : TESTED AT [facility] [address] [facility] (test lnqb=0200) [facility], [address]: [employer] [id number] for LESLY SILVERIO POCT-GLUCOSE [id number] 12:05:00 Test Item Value Reference Range Comments POC-GLUCOSE METER (BEAKER) 196 mg/dL 70-110 : TESTED AT [facility] [address] [facility] (test vlvm=9110) [facility], [address]: [employer] RQ=[id number] for BRYNN ADAME MEG OBTAINED CULTURE + GRAM [id number] 11:48:00 Test Item Value Reference Range Comments CULTURE (BEAKER) (test <1+ Same organism has been hcgw=5692) isolated from cultures(s) of the same body site and collection date. Repeat identification and susceptibility testing performed only after consultation with the clinical microbiology laboratory.Refer to previous culture ofPseudomonas aeruginosa GRAM STAIN RESULT <1+ WBCs (BEAKER) (test rqjr=4334) GRAM STAIN RESULT No organisms seen (BEAKER) (test vxkc=660719) SURGICALLY OBTAINED CULTURE + GRAM [id number] 11:47:00 Test Item Value Reference Range Comments CULTURE (BEAKER) (test PROTEUS MIRABILIS 3+ Proteus uqhe=3960) mirabilisPredominant organism Amikacin (test code=1) Ampicillin + Sulbactam (test code=6) Aztreonam (test code=32) Cefepime (test code=51) Cefoxitin (test code=68) Ceftazidime (test code=27) Ceftriaxone (test code=52) Ertapenem (test code=38) Gentamicin (test code=18) Levofloxacin (test code=22) Meropenem (test code=34) Nitrofurantoin (test code=23) Piperacillin + Tazobactam (test code=29) Tetracycline (test code=2) Tobramycin (test code=25) Trimethoprim + Sulfamethoxazole (test code=47) CULTURE (BEAKER) (test PSEUDOMONAS 3+ Pseudomonas makc=4921) AERUGINOSA aeruginosaPredominant organism Amikacin (test code=1) Susceptible 0-16 , Resistant <0 or >16 Aztreonam (test Susceptible 0-8 , code=32) Resistant <0 or >8 Cefepime (test code=51) Susceptible 0-8 , Resistant <0 or >8 Ceftazidime (test Susceptible 0-8 , code=27) Resistant <0 or >8 Ciprofloxacin (test Susceptible 0-0.5 code=7) , Resistant <0 or >.5 Gentamicin (test Susceptible 0-4 , code=18) Resistant <0 or >4 Levofloxacin (test Susceptible 0-1 , code=22) Resistant <0 or >1 Meropenem (test Susceptible 0-2 , code=34) Resistant <0 or >2 Piperacillin (test Susceptible 0-16 code=24) , Resistant <0 or >16 Piperacillin + Susceptible 0-16 Tazobactam (test , Resistant <0 or code=29) >16 Tobramycin (test Susceptible 0-4 , code=25) Resistant <0 or >4 GRAM STAIN RESULT No WBCs (BEAKER) (test imcl=2004) GRAM STAIN RESULT No organisms seen (BEAKER) (test gksy=356286) <1+ Skin doris<1+ Enteric organisms of >2 typesNo further workup performedPOCT-GLUCOSE [id number] 11:14:00 Test Item Value Reference Range Comments POC-GLUCOSE METER (BEAKER) 77 mg/dL 70-110 : TESTED AT [address] (test kzre=1858) [facility], [address]: [employer] [id number] for BRYNN ADAME POCT-GLUCOSE [id number] 11:06:00 Test Item Value Reference Range Comments POC-GLUCOSE METER (BEAKER) 144 mg/dL 70-110 : TESTED AT [address] (test flnb=4647) [facility], [address]: [employer] PP=[id number] for LESLY SILVERIO POCT-GLUCOSE [id number] 10:59:00 Test Item Value Reference Range Comments POC-GLUCOSE METER (BEAKER) 68 mg/dL 70-110 : TESTED AT [address] (test luvl=0548) [facility], [address]: [employer] [id number]=[id number] for LESLY SILVERIO BASIC METABOLIC [id number] 02:33:00 Test Item Value Reference Range Comments SODIUM (BEAKER) (test 133 meq/L 136-145 kyof=486) POTASSIUM (BEAKER) (test 4.2 meq/L 3.5-5.1 nsjw=480) CHLORIDE (BEAKER) (test 103 meq/L 98-107 epkp=732) CO2 (BEAKER) (test 22 meq/L 22-29 gmzh=485) BLOOD UREA NITROGEN 17 mg/dL 7-21 (BEAKER) (test xzjx=589) CREATININE (BEAKER) (test 1.29 mg/dL 0.57-1.25 zwzg=460) GLUCOSE RANDOM (BEAKER) 109 mg/dL 70-105 (test yuuw=240) CALCIUM (BEAKER) (test 8.4 mg/dL 8.4-10.2 qzxz=116) EGFR (BEAKER) (test 53 mL/min/1.73 sq m ESTIMATED GFR IS NOT elyc=1615) ACCURATE CREATININE CLEARANCE IN PREDICTING GLOMERULAR FILTRATION RATE. ESTIMATED GFR IS NOT APPLICABLE FOR DIALYSIS PATIENTS. CBC (HEMOGRAM ONLY)2019-07-22 01:55:00 Test Item Value Reference Range Comments WHITE BLOOD CELL COUNT (BEAKER) (test undv=421) 12.7 K/ L 3.5-10.5 RED BLOOD CELL COUNT (BEAKER) (test efng=827) 3.61 M/ L 4.63-6.08 HEMOGLOBIN (BEAKER) (test ctve=991) 11.5 GM/DL 13.7-17.5 HEMATOCRIT (BEAKER) (test thrp=889) 34.4 % 40.1-51.0 MEAN CORPUSCULAR VOLUME (BEAKER) (test bpxl=910) 95.3 fL 79.0-92.2 MEAN CORPUSCULAR HEMOGLOBIN (BEAKER) (test 31.9 pg 25.7-32.2 mrzo=301) MEAN CORPUSCULAR HEMOGLOBIN CONC (BEAKER) (test 33.4 GM/DL 32.3-36.5 eghj=204) RED CELL DISTRIBUTION WIDTH (BEAKER) (test 11.8 % 11.6-14.4 gecw=924) PLATELET COUNT (BEAKER) (test qqhq=715) 435 K/CU MM 150-450 MEAN PLATELET VOLUME (BEAKER) (test ryea=690) 9.0 fL 9.4-12.4 NUCLEATED RED BLOOD CELLS (BEAKER) (test 0 /100 WBC 0-0 onwp=249) POCT-GLUCOSE [id number] 17:15:00 Test Item Value Reference Range Comments POC-GLUCOSE METER (BEAKER) 89 mg/dL 70-110 : TESTED AT [place] [id number] [facility] (test nwrv=8530) [facility], [address]: [employer] QC=[id number] for BRYNN ADAME POCT-GLUCOSE [id number] 12:21:00 Test Item Value Reference Range Comments POC-GLUCOSE METER (BEAKER) 140 mg/dL 70-110 : TESTED AT [place] [id number] [facility] (test qycf=2655) [facility], [address]: [employer] RV=[id number] for BRYNN ADAME POCT-GLUCOSE [id number] 07:40:00 Test Item Value Reference Range Comments POC-GLUCOSE METER (BEAKER) 81 mg/dL 70-110 : TESTED AT [facility] [address] (test wbpg=9668) [facility], [address]: [employer] YA=[id number] for BRYNN ADAME BASIC METABOLIC [id number] 07:18:00 Test Item Value Reference Range Comments SODIUM (BEAKER) (test 131 meq/L 136-145 ydit=975) POTASSIUM (BEAKER) (test 4.1 meq/L 3.5-5.1 acqf=415) CHLORIDE (BEAKER) (test 100 meq/L 98-107 mrwp=475) CO2 (BEAKER) (test 24 meq/L 22-29 wyuh=717) BLOOD UREA NITROGEN 17 mg/dL 7-21 (BEAKER) (test wkrw=224) CREATININE (BEAKER) (test 0.83 mg/dL 0.57-1.25 btep=781) GLUCOSE RANDOM (BEAKER) 75 mg/dL 70-105 (test iotn=401) CALCIUM (BEAKER) (test 8.3 mg/dL 8.4-10.2 uput=990) EGFR (BEAKER) (test 88 mL/min/1.73 sq m ESTIMATED GFR IS NOT qetp=1379) ACCURATE CREATININE CLEARANCE IN PREDICTING GLOMERULAR FILTRATION RATE. ESTIMATED GFR IS NOT APPLICABLE FOR DIALYSIS PATIENTS. CBC (HEMOGRAM ONLY)2019-07-21 06:28:00 Test Item Value Reference Range Comments WHITE BLOOD CELL COUNT (BEAKER) (test wfyb=464) 12.2 K/ L 3.5-10.5 RED BLOOD CELL COUNT (BEAKER) (test tdxd=514) 3.63 M/ L 4.63-6.08 HEMOGLOBIN (BEAKER) (test kpur=614) 11.3 GM/DL 13.7-17.5 HEMATOCRIT (BEAKER) (test nfdx=023) 35.0 % 40.1-51.0 MEAN CORPUSCULAR VOLUME (BEAKER) (test wjos=967) 96.4 fL 79.0-92.2 MEAN CORPUSCULAR HEMOGLOBIN (BEAKER) (test 31.1 pg 25.7-32.2 jwam=053) MEAN CORPUSCULAR HEMOGLOBIN CONC (BEAKER) (test 32.3 GM/DL 32.3-36.5 zirp=950) RED CELL DISTRIBUTION WIDTH (BEAKER) (test 11.8 % 11.6-14.4 brap=261) PLATELET COUNT (BEAKER) (test mlaw=544) 412 K/CU MM 150-450 MEAN PLATELET VOLUME (BEAKER) (test jxjj=004) 9.2 fL 9.4-12.4 NUCLEATED RED BLOOD CELLS (BEAKER) (test 0 /100 WBC 0-0 reow=927) POCT-GLUCOSE [id number] 21:12:00 Test Item Value Reference Range Comments POC-GLUCOSE METER (BEAKER) 157 mg/dL 70-110 : TESTED AT [address] (test bwuk=9636) [facility], [address]: [employer] SQ=[id number] for FORREST SEGOVIA SPIN/CONCENTRATION [id number] 14:50:00 Test Item Value Reference Range Comments CONCENTRATION CHARGED (BEAKER) (test klqt=1522) Done POCT-GLUCOSE [id number] 12:40:00 Test Item Value Reference Range Comments POC-GLUCOSE METER (BEAKER) 146 mg/dL 70-110 : TESTED AT [address] (test cjaz=9970) [facility], [address]: [employer] QX=[id number] for ALENATIFFANY STEELE POCT-GLUCOSE [id number] 09:26:00 Test Item Value Reference Range Comments POC-GLUCOSE METER (BEAKER) 126 mg/dL 70-110 : TESTED AT [address] (test fcip=2939) [facility], [address]: [employer] [id number]=[id number] for Sue Lubin CBC W/PLT COUNT & AUTO [id number] 05:21:00 Test Item Value Reference Range Comments WHITE BLOOD CELL COUNT (BEAKER) (test ewjm=530) 14.9 K/ L 3.5-10.5 RED BLOOD CELL COUNT (BEAKER) (test ckwx=676) 3.66 M/ L 4.63-6.08 HEMOGLOBIN (BEAKER) (test loex=336) 11.7 GM/DL 13.7-17.5 HEMATOCRIT (BEAKER) (test nczd=589) 35.3 % 40.1-51.0 MEAN CORPUSCULAR VOLUME (BEAKER) (test xopf=072) 96.4 fL 79.0-92.2 MEAN CORPUSCULAR HEMOGLOBIN (BEAKER) (test 32.0 pg 25.7-32.2 cmdi=383) MEAN CORPUSCULAR HEMOGLOBIN CONC (BEAKER) (test 33.1 GM/DL 32.3-36.5 yxqd=896) RED CELL DISTRIBUTION WIDTH (BEAKER) (test 11.7 % 11.6-14.4 ybrw=207) PLATELET COUNT (BEAKER) (test joux=571) 395 K/CU MM 150-450 MEAN PLATELET VOLUME (BEAKER) (test xfne=831) 9.2 fL 9.4-12.4 NUCLEATED RED BLOOD CELLS (BEAKER) (test 0 /100 WBC 0-0 bhuh=481) NEUTROPHILS RELATIVE PERCENT (BEAKER) (test 77 % alhi=878) LYMPHOCYTES RELATIVE PERCENT (BEAKER) (test 12 % kcse=855) MONOCYTES RELATIVE PERCENT (BEAKER) (test 9 % mkjn=864) EOSINOPHILS RELATIVE PERCENT (BEAKER) (test 1 % tqzl=254) BASOPHILS RELATIVE PERCENT (BEAKER) (test 0 % ecdv=492) NEUTROPHILS ABSOLUTE COUNT (BEAKER) (test 11.45 K/ L 1.78-5.38 fvse=685) LYMPHOCYTES ABSOLUTE COUNT (BEAKER) (test 1.78 K/ L 1.32-3.57 edei=717) MONOCYTES ABSOLUTE COUNT (BEAKER) (test 1.35 K/ L 0.30-0.82 dakp=699) EOSINOPHILS ABSOLUTE COUNT (BEAKER) (test 0.16 K/ L 0.04-0.54 ipft=987) BASOPHILS ABSOLUTE COUNT (BEAKER) (test 0.06 K/ L 0.01-0.08 kila=877) IMMATURE GRANULOCYTES-RELATIVE PERCENT (BEAKER) 1 % 0-1 (test ltkr=1089) BASIC METABOLIC [id number] 05:14:00 Test Item Value Reference Range Comments SODIUM (BEAKER) (test 133 meq/L 136-145 fqis=361) POTASSIUM (BEAKER) (test 4.4 meq/L 3.5-5.1 kkrr=338) CHLORIDE (BEAKER) (test 100 meq/L 98-107 kdpa=627) CO2 (BEAKER) (test 25 meq/L 22-29 suvh=296) BLOOD UREA NITROGEN 28 mg/dL 7-21 (BEAKER) (test gbpd=884) CREATININE (BEAKER) (test 1.14 mg/dL 0.57-1.25 nzzn=291) GLUCOSE RANDOM (BEAKER) 119 mg/dL 70-105 (test fhhj=273) CALCIUM (BEAKER) (test 8.6 mg/dL 8.4-10.2 pixf=668) EGFR (BEAKER) (test 61 mL/min/1.73 sq m ESTIMATED GFR IS NOT gtzu=2558) ACCURATE CREATININE CLEARANCE IN PREDICTING GLOMERULAR FILTRATION RATE. ESTIMATED GFR IS NOT APPLICABLE FOR DIALYSIS PATIENTS. POCT-GLUCOSE [id number] 20:43:00 Test Item Value Reference Range Comments POC-GLUCOSE METER (BEAKER) 178 mg/dL 70-110 : TESTED AT [address] (test otur=5148) [facility], [address]: [employer] [phone]=[id number] for FORREST SEGOVIA ERIC, FOOT, MIN 3 VIEWS, [id number] 14:48:00Reason for exam:->s/p amputationFINAL REPORT Right foot, three views History: Status post amputation Comparison: 07/14/2019 Findings:There is been interval amputation of the first digit at the level of the proximal first metatarsal. No radiopaque foreign body is seen. No additional significant bone or joint space abnormality. Impression:Interval amputation of the first digit at the level of the proximal firstmetatarsal. Signed: Jj Wright MDReport Verified Date/ Time: 07/19/2019 14:48:51 Reading Location: [facility] Reading Room POCT-GLUCOSE [id number] 13:42:00 Test Item Value Reference Range Comments POC-GLUCOSE METER (BEAKER) 112 mg/dL 70-110 : Notified RN/MD: TESTED AT (test ftsw=1557) [address], [address]: [employer] [id number] for JANAE MCKENNA [id number] 06:12:00 Test Item Value Reference Range Comments MAGNESIUM (BEAKER) (test bujw=341) 2.5 mg/dL 1.6-2.6 BASIC METABOLIC [id number] 06:12:00 Test Item Value Reference Range Comments SODIUM (BEAKER) (test 130 meq/L 136-145 drjm=643) POTASSIUM (BEAKER) (test 4.7 meq/L 3.5-5.1 yqpj=129) CHLORIDE (BEAKER) (test 98 meq/L 98-107 sopj=691) CO2 (BEAKER) (test 23 meq/L 22-29 wmsf=069) BLOOD UREA NITROGEN 26 mg/dL 7-21 (BEAKER) (test jbnh=831) CREATININE (BEAKER) (test 1.19 mg/dL 0.57-1.25 eyoy=190) GLUCOSE RANDOM (BEAKER) 126 mg/dL 70-105 (test wlnn=499) CALCIUM (BEAKER) (test 8.7 mg/dL 8.4-10.2 heaj=146) EGFR (BEAKER) (test 58 mL/min/1.73 sq m ESTIMATED GFR IS NOT mddt=8811) ACCURATE CREATININE CLEARANCE IN PREDICTING GLOMERULAR FILTRATION RATE. ESTIMATED GFR IS NOT APPLICABLE FOR DIALYSIS PATIENTS. CBC (HEMOGRAM ONLY)2019-07-19 05:02:00 Test Item Value Reference Range Comments WHITE BLOOD CELL COUNT (BEAKER) (test edly=848) 15.7 K/ L 3.5-10.5 RED BLOOD CELL COUNT (BEAKER) (test zves=503) 3.83 M/ L 4.63-6.08 HEMOGLOBIN (BEAKER) (test uytr=009) 12.3 GM/DL 13.7-17.5 HEMATOCRIT (BEAKER) (test hqxs=799) 36.7 % 40.1-51.0 MEAN CORPUSCULAR VOLUME (BEAKER) (test siyn=228) 95.8 fL 79.0-92.2 MEAN CORPUSCULAR HEMOGLOBIN (BEAKER) (test 32.1 pg 25.7-32.2 dcqn=522) MEAN CORPUSCULAR HEMOGLOBIN CONC (BEAKER) (test 33.5 GM/DL 32.3-36.5 lgzd=913) RED CELL DISTRIBUTION WIDTH (BEAKER) (test 11.7 % 11.6-14.4 hjkj=156) PLATELET COUNT (BEAKER) (test qucu=589) 401 K/CU MM 150-450 MEAN PLATELET VOLUME (BEAKER) (test dcmi=030) 9.1 fL 9.4-12.4 NUCLEATED RED BLOOD CELLS (BEAKER) (test 0 /100 WBC 0-0 nhho=044) POCT-LACTIC ACID, [id number] 03:46:00 Test Item Value Reference Range Comments POC-LACTIC ACID, VENOUS 0.9 mmol/L 0.9-1.7 TESTED AT [address] (BEAKER) (test ylpe=3123) [facility] [address] POCT-GLUCOSE [id number] 21:08:00 Test Item Value Reference Range Comments POC-GLUCOSE METER (BEAKER) 146 mg/dL 70-110 : TESTED AT [address] (test tbkk=1804) [facility], [address]: [employer] [id number] for LESLY SILVERIO POCT-GLUCOSE [id number] 17:29:00 Test Item Value Reference Range Comments POC-GLUCOSE METER (BEAKER) 106 mg/dL 70-110 : TESTED AT [address] (test jnpz=2870) [facility], [address]: [employer] [id number] for BRYNN ADAME POCT-GLUCOSE [id number] 12:44:00 Test Item Value Reference Range Comments POC-GLUCOSE METER (BEAKER) 113 mg/dL 70-110 : TESTED AT [address] (test pgla=7780) [facility], [address]: [employer] ID=[id number] for BRYNN ADAME POCT-GLUCOSE [id number] 07:41:00 Test Item Value Reference Range Comments POC-GLUCOSE METER (BEAKER) 89 mg/dL 70-110 : TESTED AT [address] (test fynt=1594) [facility], [address]: [employer] [id number] for BRYNN ADAME CBC (HEMOGRAM ONLY)2019-07-18 06:46:00 Test Item Value Reference Range Comments WHITE BLOOD CELL COUNT (BEAKER) (test shhl=181) 14.1 K/ L 3.5-10.5 RED BLOOD CELL COUNT (BEAKER) (test bomz=084) 3.84 M/ L 4.63-6.08 HEMOGLOBIN (BEAKER) (test qrqq=613) 12.3 GM/DL 13.7-17.5 HEMATOCRIT (BEAKER) (test mvve=925) 36.7 % 40.1-51.0 MEAN CORPUSCULAR VOLUME (BEAKER) (test ytgl=510) 95.6 fL 79.0-92.2 MEAN CORPUSCULAR HEMOGLOBIN (BEAKER) (test 32.0 pg 25.7-32.2 vaop=051) MEAN CORPUSCULAR HEMOGLOBIN CONC (BEAKER) (test 33.5 GM/DL 32.3-36.5 ovij=791) RED CELL DISTRIBUTION WIDTH (BEAKER) (test 11.9 % 11.6-14.4 gqfq=302) PLATELET COUNT (BEAKER) (test sfeg=440) 372 K/CU MM 150-450 MEAN PLATELET VOLUME (BEAKER) (test whco=026) 9.2 fL 9.4-12.4 NUCLEATED RED BLOOD CELLS (BEAKER) (test 0 /100 WBC 0-0 yttk=633) POCT-GLUCOSE [id number] 21:24:00 Test Item Value Reference Range Comments POC-GLUCOSE METER (BEAKER) 95 mg/dL 70-110 : TESTED AT [address] (test vknw=6543) [facility], [address]: [employer] [id number] for LESLY SILVERIO POCT-GLUCOSE [id number] 17:26:00 Test Item Value Reference Range Comments POC-GLUCOSE METER (BEAKER) 111 mg/dL 70-110 : TESTED AT [address] (test koqx=4073) [facility], [address]: [employer] [id number] for BRYNN ADAME PET, CARDIAC PERFUSION MULTIPLE STUDIES, REST AND [id number] 14:49: 00Reason for exam:->preopFINAL REPORT PROCEDURE: MYOCARDIAL PERFUSION PET IMAGING (Rest/Stress)CPT CODE: [id number] INDICATION: Preoperative evaluation for vascular surgery CARDIOVASCULAR PROFILE:Symptoms: NoneCAD History: NoneRisk Factors: Diabetes mellitus, hypertension, lipid abnormality, peripheral vascular diseaseBMI: 32.1Medications: Norvasc, aspirin, hydralazine, heparin, Cozaar STRESS PROTOCOL:Pharmacologic stress was achieved with a 10-second intravenous infusion of regadenoson 0.4 mg. IMAGING PROTOCOL: Limited low-dose CT imaging was performed for attenuation correction. 40 mCi of Rb-82 chloride was injected intravenously at rest, and PET images were obtained. Then, 40 mCi of Rb-82 chloride was injected intravenously at peak stress, and PET images were obtained. REST FINDINGS:HR: 59 /minBP: 173/72 mmHgPrelim. EKG: Normal sinus rhythm.Perfusion: Normal.Wall Motion: Normal ( LVEF 60%).LV Volume: Normal.RV Volume: Normal. STRESS FINDINGS:HR: 74 /min (54% of MPHR)BP: 145/57 mmHgPrelim. EKG: No ischemic changes.Symptoms: Dyspnea ( treatment not required).Perfusion: Normal.Wall Motion: Normal (LVEF 55%).LV Volume: Unchanged from rest. IMPRESSION:1. Suspicious study.2. Normal myocardial perfusion. 3. Normal global LV function, which mildly deteriorate with stress.4. Normal extracardiac tracer distribution.5. There is no prior study for comparison. Signed: Jean Pierre Roberto MDReport Verified Date/Time: 2018 14:49:05 Electronically signed by: JEAN PIERRE ROBERTO MD on 2018 02:49 PMPOCT-GLUCOSE [id number] 08:32:00 Test Item Value Reference Range Comments POC-GLUCOSE METER (BEAKER) 140 mg/dL 70-110 : TESTED AT [facility] [address] (test fsiv=1893) [facility], [address]: [employer] [id number] for BRYNN ADAME CBC (HEMOGRAM ONLY)2019-07-17 04:54:00 Test Item Value Reference Range Comments WHITE BLOOD CELL COUNT (BEAKER) (test mwkl=797) 11.9 K/ L 3.5-10.5 RED BLOOD CELL COUNT (BEAKER) (test rtzl=298) 4.09 M/ L 4.63-6.08 HEMOGLOBIN (BEAKER) (test nvsy=802) 12.9 GM/DL 13.7-17.5 HEMATOCRIT (BEAKER) (test gdnb=979) 39.2 % 40.1-51.0 MEAN CORPUSCULAR VOLUME (BEAKER) (test xrqu=257) 95.8 fL 79.0-92.2 MEAN CORPUSCULAR HEMOGLOBIN (BEAKER) (test 31.5 pg 25.7-32.2 hcmg=580) MEAN CORPUSCULAR HEMOGLOBIN CONC (BEAKER) (test 32.9 GM/DL 32.3-36.5 hvxu=832) RED CELL DISTRIBUTION WIDTH (BEAKER) (test 11.6 % 11.6-14.4 vdqz=107) PLATELET COUNT (BEAKER) (test kuvt=921) 341 K/CU MM 150-450 MEAN PLATELET VOLUME (BEAKER) (test fooc=420) 8.8 fL 9.4-12.4 NUCLEATED RED BLOOD CELLS (BEAKER) (test 0 /100 WBC 0-0 qcsu=812) POCT-GLUCOSE [id number] 21:22:00 Test Item Value Reference Range Comments POC-GLUCOSE METER (BEAKER) 175 mg/dL 70-110 : TESTED AT [address] (test xflt=0033) [facility], [address]: [employer] [id number] for FORREST SEGOVIA POCT-GLUCOSE [id number] 12:07:00 Test Item Value Reference Range Comments POC-GLUCOSE METER (BEAKER) 99 mg/dL 70-110 : TESTED AT [address] (test seqx=7071) [facility], [address]: [employer] [id number] for Avtar Carlisle RAD, FOOT, MIN 3 VIEWS, [id number] 09:31:00Reason for exam:->infection footFINAL REPORT RAD, FOOT, MIN 3 VIEWS, RIGHT INDICATION : infection foot COMPARISON: None TECHNIQUE: AP, lateral and oblique radiographs of the foot FINDINGS/IMPRESSION:No acute fracture Signed: Lin Alvarado Verified Date/Time: 07/16/2019 09:31:42 Reading Location: [facility] Radiology Reading Room CBC (HEMOGRAM ONLY)2019-07-16 07:30:00 Test Item Value Reference Range Comments WHITE BLOOD CELL COUNT (BEAKER) (test cmet=962) 11.0 K/ L 3.5-10.5 RED BLOOD CELL COUNT (BEAKER) (test smsh=616) 4.23 M/ L 4.63-6.08 HEMOGLOBIN (BEAKER) (test vydv=759) 13.3 GM/DL 13.7-17.5 HEMATOCRIT (BEAKER) (test hmdw=139) 39.8 % 40.1-51.0 MEAN CORPUSCULAR VOLUME (BEAKER) (test gxnq=896) 94.1 fL 79.0-92.2 MEAN CORPUSCULAR HEMOGLOBIN (BEAKER) (test 31.4 pg 25.7-32.2 iylq=505) MEAN CORPUSCULAR HEMOGLOBIN CONC (BEAKER) (test 33.4 GM/DL 32.3-36.5 zsok=954) RED CELL DISTRIBUTION WIDTH (BEAKER) (test 11.7 % 11.6-14.4 fiat=472) PLATELET COUNT (BEAKER) (test vgfs=959) 414 K/CU MM 150-450 MEAN PLATELET VOLUME (BEAKER) (test udcf=356) 9.2 fL 9.4-12.4 NUCLEATED RED BLOOD CELLS (BEAKER) (test 0 /100 WBC 0-0 tpgw=501) [id number] 06:49:00 Test Item Value Reference Range Comments PARTIAL THROMBOPLASTIN TIME (BEAKER) (test 55.5 seconds 22.5-36.0 edsu=963) [id number] 00:12:00 Test Item Value Reference Range Comments PARTIAL THROMBOPLASTIN TIME (BEAKER) (test 70.6 seconds 22.5-36.0 tquf=523) POCT-GLUCOSE [id number] 21:03:00 Test Item Value Reference Range Comments POC-GLUCOSE METER (BEAKER) 116 mg/dL 70-110 : TESTED AT [address] (test rzcw=9087) [facility], [address]: [employer] EU=[id number] for FORREST SEGOVIA POCT-GLUCOSE [id number] 18:34:00 Test Item Value Reference Range Comments POC-GLUCOSE METER (BEAKER) 95 mg/dL 70-110 : Notified RN/MD: TESTED AT (test dnsj=0698) [address], [address]: [employer] [id number] for EBONY WHITTINGTON [id number] 17:06:00 Test Item Value Reference Range Comments PARTIAL THROMBOPLASTIN TIME (BEAKER) (test 48.7 seconds 22.5-36.0 yoin=521) POCT-GLUCOSE [id number] 12:46:00 Test Item Value Reference Range Comments POC-GLUCOSE METER (BEAKER) 110 mg/dL 70-110 : TESTED AT [facility] [address] [facility] (test nxfi=3879) [facility], [address]: [employer] [id number] for EBONY WHITTINGTON [id number] 09:48:00 Test Item Value Reference Range Comments PARTIAL THROMBOPLASTIN TIME (BEAKER) (test 56.8 seconds 22.5-36.0 oqsv=308) POCT-GLUCOSE [id number] 07:43:00 Test Item Value Reference Range Comments POC-GLUCOSE METER (BEAKER) 82 mg/dL 70-110 : TESTED AT [facility] [address] [facility] (test barv=4850) [facility], [address]: [employer] CG=[id number] for Natalie Ibrahim CBC (HEMOGRAM ONLY)2019-07-15 06:36:00 Test Item Value Reference Range Comments WHITE BLOOD CELL COUNT (BEAKER) (test ozdo=189) 8.5 K/ L 3.5-10.5 RED BLOOD CELL COUNT (BEAKER) (test eeik=290) 4.13 M/ L 4.63-6.08 HEMOGLOBIN (BEAKER) (test tbod=430) 13.3 GM/DL 13.7-17.5 HEMATOCRIT (BEAKER) (test qqkq=059) 39.3 % 40.1-51.0 MEAN CORPUSCULAR VOLUME (BEAKER) (test lxks=383) 95.2 fL 79.0-92.2 MEAN CORPUSCULAR HEMOGLOBIN (BEAKER) (test 32.2 pg 25.7-32.2 wgts=331) MEAN CORPUSCULAR HEMOGLOBIN CONC (BEAKER) (test 33.8 GM/DL 32.3-36.5 jvjr=388) RED CELL DISTRIBUTION WIDTH (BEAKER) (test 11.8 % 11.6-14.4 sfjz=178) PLATELET COUNT (BEAKER) (test vilv=597) 388 K/CU MM 150-450 MEAN PLATELET VOLUME (BEAKER) (test bquy=446) 9.1 fL 9.4-12.4 NUCLEATED RED BLOOD CELLS (BEAKER) (test 0 /100 WBC 0-0 khlf=188) CT, CTA AAA, W/ ERICA.EXT.[id number] 05:24:00FINAL REPORT CT, CTA AAA, W/ ERICA.EXT.RUNOFF INDICATION:Acute limb ischemia, leg COMPARISON: TECHNIQUE:CTA of the abdomen, pelvis and lower extremities WITH intravenous contrast. The exam was performed according to our department dose- optimization protocol, which includes automated exposure control, adjustments of mA and kV according to patient size. Iterative reconstructionsare also sometimes employed. FINDINGS: VESSELS: Aorta is patent without aneurysm or dissection. Extensive aortoiliac and mesenteric vessel atherosclerotic plaques.Celiac trunk severe stenosis at its origin.SMA severe stenosis at origin with multifocal mild to moderate stenosis distally.Right renal artery origin severe stenosis. Left renal artery origin severe stenosis.Left common iliac artery moderate to severe stenosis. Left internal iliac artery mild proximal stenosis and severe distal stenosis. Left external iliac artery mild stenosis.Right common iliac artery mild stenosis. Right external iliac artery mild stenosis. Right internal iliac artery severe proximal stenosis. Right common femoral artery severe stenosis/occlusion with distal reconstitution. Right superficial femoral artery severe proximal stenosis and distal occlusion. Popliteal artery is not well-visualized due to streak artifact from total knee arthroplasty. Anterior tibial artery occlusion with segmental reconstitution. Posterior tibial artery occlusion with segmental reconstitution. Peroneal artery severe stenosis. Severely stenotic dorsalis pedis. Left common femoral artery moderate stenosis. Left superficial femoral arteryocclusion with distal reconstitution and multifocal severe stenosis. Left popliteal artery poorly visualized due to streak artifact from total knee arthroplasty. Occluded anterior tibial artery with distal reconstitution. Severely stenotic but patent posterior tibial artery and peroneal artery. Severely stenotic dorsalis pedis artery. LOWER THORAX: Bibasilar subsegmental opacities consistent with atelectasis or scarring.. HEPATOBILIARY: Cholelithiasis.SPLEEN: Unremarkable.PANCREAS: Unremarkable. ADRENALS: Unremarkable.KIDNEYS/URETERS: No acute findings.PELVIC ORGANS/BLADDER: Unremarkable. PERITONEUM / RETROPERITONEUM : Unremarkable.LYMPH NODES: Unremarkable. GI TRACT: Diverticulosis coli. No evidence of acute obstruction. BONES: Lumbar spondylosis. IMPRESSION:Severe bilateral peripheral arterial disease further discussed above.Extensive aortoiliac and mesenteric vessel atheromatous plaques. No aortic dissection or aneurysm.Cholelithiasis. Diverticulosis coli. Signed: Josr Maldonado MDReport Verified Date/Time: 07/15/2019 05:24:24 [id number] 02:55:00 Test Item Value Reference Range Comments PARTIAL THROMBOPLASTIN TIME (BEAKER) (test 47.4 seconds 22.5-36.0 ihzf=210) 6 hours after starting heparin infusion and as indicated per sliding scalePROTHROMBIN TIME/[id number] 02:54:00 Test Item Value Reference Range Comments PROTIME (BEAKER) (test niec=066) 15.4 seconds 11.9-14.2 INR (BEAKER) (test tzel=090) 1.3 <=5.9 Effective 12/30/2018: PT Reference Range ChangeNew: 11.9-14.2 Previous: 11.7- 14.7RECOMMENDED COUMADIN/WARFARIN INR THERAPY RANGESSTANDARD DOSE: 2.0-3.0 Includes: PROPHYLAXIS for venous thrombosis, systemic embolization; TREATMENT for venous thrombosis and/or pulmonary embolus.HIGH RISK: Target INR is2.5-3.5 for patients wiht mechanical heart valves.6 hours after starting heparin infusion and as indicated per sliding [id number] 02:54:00 Test Item Value Reference Range Comments PARTIAL THROMBOPLASTIN TIME (BEAKER) (test 48.8 seconds 22.5-36.0 etvk=929) HEMOGLOBIN [id number] 00:36:00 Test Item Value Reference Range Comments HEMOGLOBIN A1C (BEAKER) (test losh=723) 6.5 % 4.3-6.1 POCT-GLUCOSE [id number] 21:45:00 Test Item Value Reference Range Comments POC-GLUCOSE METER (BEAKER) 156 mg/dL 70-110 : TESTED AT [facility] [address] [facility] (test rdcu=0794) [facility], [address]: [employer] [id number] for MARISELA FREEMAN LIPID [id number] 20:49:00 Test Item Value Reference Range Comments TRIGLYCERIDES (BEAKER) (test jdjq=584) 82 mg/dL CHOLESTEROL (BEAKER) (test mehu=521) 141 mg/dL HDL CHOLESTEROL (BEAKER) (test odpr=451) 34 mg/dL LDL CHOLESTEROL CALCULATED (BEAKER) (test 91 mg/dL noqt=965) Triglyceride Reference Range: Low Risk <150 Borderline 150- 199 High Risk 200-499 Very High Risk >=500Cholesterol Reference Range: Low Risk <200 Borderline 200-239 High Risk > 240HDL Cholesterol Reference Range: Low Risk >=60 High Risk <40LDL Cholesterol Reference Range: Optimal <100 Near Optimal 100-129 Borderline 130-159 High 160-189 Very High >=190POCT-GLUCOSE [id number] 19:45:00 Test Item Value Reference Range Comments POC-GLUCOSE METER (BEAKER) 100 mg/dL 70-110 : TESTED AT [facility] [address] [facility] (test uigd=3226) [facility], [address]: [employer] [id number] for TRACY FOX BASIC METABOLIC [id number] 19:20:00 Test Item Value Reference Range Comments SODIUM (BEAKER) (test 135 meq/L 136-145 wvfn=470) POTASSIUM (BEAKER) (test 4.6 meq/L 3.5-5.1 sdof=227) CHLORIDE (BEAKER) (test 99 meq/L 98-107 pncd=115) CO2 (BEAKER) (test 27 meq/L 22-29 jhgz=805) BLOOD UREA NITROGEN 14 mg/dL 7-21 (BEAKER) (test vjqn=445) CREATININE (BEAKER) (test 0.89 mg/dL 0.57-1.25 kmrh=052) GLUCOSE RANDOM (BEAKER) 139 mg/dL 70-105 (test njpb=771) CALCIUM (BEAKER) (test 9.3 mg/dL 8.4-10.2 xxft=722) EGFR (BEAKER) (test 82 mL/min/1.73 sq m ESTIMATED GFR IS NOT dqwh=1869) ACCURATE CREATININE CLEARANCE IN PREDICTING GLOMERULAR FILTRATION RATE. ESTIMATED GFR IS NOT APPLICABLE FOR DIALYSIS PATIENTS. [id number] 19:15:00 Test Item Value Reference Range Comments PARTIAL THROMBOPLASTIN TIME (BEAKER) (test 42.2 seconds 22.5-36.0 trcw=756) Prior to initiating heparinCBC W/PLT COUNT & AUTO [id number] 19: 03:00 Test Item Value Reference Range Comments WHITE BLOOD CELL COUNT (BEAKER) (test cekr=010) 11.1 K/ L 3.5-10.5 RED BLOOD CELL COUNT (BEAKER) (test jvaz=131) 4.39 M/ L 4.63-6.08 HEMOGLOBIN (BEAKER) (test hdef=670) 14.0 GM/DL 13.7-17.5 HEMATOCRIT (BEAKER) (test byiq=813) 41.7 % 40.1-51.0 MEAN CORPUSCULAR VOLUME (BEAKER) (test wlxr=288) 95.0 fL 79.0-92.2 MEAN CORPUSCULAR HEMOGLOBIN (BEAKER) (test 31.9 pg 25.7-32.2 iybg=634) MEAN CORPUSCULAR HEMOGLOBIN CONC (BEAKER) (test 33.6 GM/DL 32.3-36.5 lpcx=917) RED CELL DISTRIBUTION WIDTH (BEAKER) (test 11.7 % 11.6-14.4 offx=941) PLATELET COUNT (BEAKER) (test dzsz=053) 402 K/CU MM 150-450 MEAN PLATELET VOLUME (BEAKER) (test znui=870) 8.8 fL 9.4-12.4 NUCLEATED RED BLOOD CELLS (BEAKER) (test 0 /100 WBC 0-0 thgw=971) NEUTROPHILS RELATIVE PERCENT (BEAKER) (test 67 % imiv=549) LYMPHOCYTES RELATIVE PERCENT (BEAKER) (test 20 % nqop=272) MONOCYTES RELATIVE PERCENT (BEAKER) (test 11 % lxgm=877) EOSINOPHILS RELATIVE PERCENT (BEAKER) (test 1 % rfho=266) BASOPHILS RELATIVE PERCENT (BEAKER) (test 0 % efda=044) NEUTROPHILS ABSOLUTE COUNT (BEAKER) (test 7.43 K/ L 1.78-5.38 tonz=984) LYMPHOCYTES ABSOLUTE COUNT (BEAKER) (test 2.23 K/ L 1.32-3.57 eonn=234) MONOCYTES ABSOLUTE COUNT (BEAKER) (test 1.23 K/ L 0.30-0.82 mcxq=823) EOSINOPHILS ABSOLUTE COUNT (BEAKER) (test 0.06 K/ L 0.04-0.54 ayhm=774) BASOPHILS ABSOLUTE COUNT (BEAKER) (test 0.04 K/ L 0.01-0.08 zkuy=051) IMMATURE GRANULOCYTES-RELATIVE PERCENT (BEAKER) 1 % 0-1 (test ikay=7058)
[2019-08-18 17:09] LABS: Urine Appearance CLEAR; Urine Bilirubin NEGATIVE (NEG); Urine Blood NEGATIVE (NEG); Urine Glucose NEGATIVE (NEG); Urine Protein NEGATIVE (NEG); Urine Specific Gravity 1.015 (1.005-1.030); Urine Urobilinogen 0.2 mg/dL (0.2-1.0); Urine pH 6.5 (5.0-7.0)
[2019-08-18 17:49] LABS: Urine Color DK YELLOW
[2019-08-18 17:58] LABS: Urine Bacteria <20 /HPF (NONE SEEN); Urine Culture Reflex Order NOT NEEDED; Urine RBC <5 /HPF (NONE SEEN)
[2019-08-18 17:59] LABS: Urine Amorphous Sediment 1+ /HPF (NONE SEEN)
[2019-08-18] MEDS ORDERED: GLUCAGON 1 MG/VIAL IM PRN ×2 (18:24→18:26)
[2019-08-18] MEDS ORDERED: D50W 25 GM/50 ML SYRINGE/VIAL IV PRN ×2 (18:24→18:26)
[2019-08-18] MEDS ORDERED: HYDROCODONE/APAP 5/325 MG TAB PO PRN (18:24)
[2019-08-18] MEDS: ATORVASTATIN 40 MG TAB PO SCH (20:53)
[2019-08-18] MEDS: levoFLOXacin 750 MG TAB PO SCH (20:53)
[2019-08-18] MEDS: INSULIN -REGULAR HUMAN 50 UNIT/0.5 ML ML SQ SCH (21:00)
[2019-08-18] MEDS ORDERED: DIPHENHYDRAMINE 25 MG TAB/CAP PO PRN (23:22)
[2019-08-19] MEDS: METOPROLOL XL 50 MG TAB PO SCH (05:26)
[2019-08-19 06:33] LABS: Absolute Lymphocytes (CBC) 1.8 K/uL (0.7-4.9); Basophils % 0.9 % (0-1.3); Hematocrit 23.4 % (39.6-49.0); Lymphocytes % 20.9 % (15.3-44.8); RBC Red Blood Cell Count 2.53 M/uL (4.33-5.43)
[2019-08-19 06:52] LABS: Albumin 2.6 g/dL (3.4-5.0); Magnesium 2.1 mg/dL (1.8-2.4); Potassium 3.6 mmol/L (3.5-5.1); Prealbumin 12.9 mg/dL (20-40)
[2019-08-19] MEDS: INSULIN -REGULAR HUMAN 50 UNIT/0.5 ML ML SQ SCH ×4 (07:30→21:00)
[2019-08-19] MEDS ORDERED: INSULIN GLARGINE 100 UNITS/ML SQ SCH (08:00)
[2019-08-19] MEDS ORDERED: CLOPIDOGREL 75 MG TABLET PO SCH (08:00)
[2019-08-19] MEDS: LOSARTAN POTASSIUM 50 MG TABLET PO SCH (08:41)
[2019-08-19] MEDS: ASPIRIN EC 81 MG TAB PO SCH (08:41)
[2019-08-19] MEDS: TAMSULOSIN 0.4 MG SR CAP PO SCH (08:42)
[2019-08-19] MEDS: levoFLOXacin 750 MG TAB PO SCH (08:42)
[2019-08-19] MEDS: TRAMADOL HCL 50 MG TAB PO PRN ×3 (08:43→19:44)
[2019-08-19] MEDS: BUMETANIDE 1 MG TABLET PO SCH (10:43)
[2019-08-19] MEDS: ACETAMINOPHEN 500 MG TAB PO PRN (10:44)
--- NOTE | 2019-08-19 15:20 | FAST ---
ENCOUNTER DATE AND TIME: 08/19/2019 08:00 (PICTURE FRAMER) NAME BERLIN JAMES DATE OF : 1935 DATE OF ADMISSION: 08/18/2019 16:02 (PICTURE FRAMER) PHONE: AGE: 83 N# [id number] GENDER: Male ENCOUNTER PHYSICIAN: Dr. Praveen Monroe M.D. ADMISSION DIAGNOSIS: - Medically Complex Conditions 17 - Circulatory Disorders (17.4) Severe PAD. Critical Lower Limb Ischemia. ROLL LEFT AND RIGHT: ROLL LEFT AND RIGHT - STEP 1: Does the patient complete the activity by him/herself with no assistance (physical, verbal/nonverbal cueing, setup/clean-up)? No. ROLL LEFT AND RIGHT - STEP 2: Does the patient need only setup/clean-up assistance from one helper? No. ROLL LEFT AND RIGHT - STEP 3: Does the patient need only verbal/nonverbal cueing or touching/steadying/contact guard assistance fro m one helper? No. ROLL LEFT AND RIGHT - STEP 4: Does the patient need physical assistance - for example lifting or trunk support from one helper - wi th the helper providing less than half of the effort? No. ROLL LEFT AND RIGHT - STEP 5: Does the patient need physical assistance - for example lifting or trunk support from one helper - wi th the helper providing more than half of the effort? Yes. 1. [id number] ADMISSION PERFORMANCE: Substantial/maximal assistance CODE: 02 SIT TO LYING: SIT TO LYING - STEP 1: Does the patient complete the activity by him/herself with no assistance (physical, verbal/nonverbal cueing, setup/clean-up)? No. SIT TO LYING - STEP 2: Does the patient need only setup/clean-up assistance from one helper? No. SIT TO LYING - STEP 3: Does the patient need only verbal/nonverbal cueing or touching/steadying/contact guard assistance fro m one helper? No. SIT TO LYING - STEP 4: Does the patient need physical assistance - for example lifting or trunk support from one helper - wi th the helper providing less than half of the effort? No. SIT TO LYING - STEP 5: Does the patient need physical assistance - for example lifting or trunk support from one helper - wi th the helper providing more than half of the effort? Yes. 1. [id number] ADMISSION PERFORMANCE: Substantial/maximal assistance CODE: 02 LYING TO SITTING: LYING TO SITTING ON SIDE OF BED - STEP 1: Does the patient complete the activity by him/herself with no assistance (physical, verbal/nonverbal cueing, setup/clean-up)? No. LYING TO SITTING ON SIDE OF BED - STEP 2: Does the patient need only setup/clean-up assistance from one helper? No. LYING TO SITTING ON SIDE OF BED - STEP 3: Does the patient need only verbal/nonverbal cueing or touching/steadying/contact guard assistance fro m one helper? No. LYING TO SITTING ON SIDE OF BED - STEP 4: Does the patient need physical assistance - for example lifting or trunk support from one helper - wi th the helper providing less than half of the effort? No. LYING TO SITTING ON SIDE OF BED - STEP 5: Does the patient need physical assistance - for example lifting or trunk support from one helper - wi th the helper providing more than half of the effort? Yes. 1. [id number] ADMISSION PERFORMANCE: Substantial/maximal assistance CODE: 02 SIT TO STAND: SIT TO STAND - STEP 1: Does the patient complete the activity by him/herself with no assistance (physical, verbal/nonverbal cueing, setup/clean-up)? No. SIT TO STAND - STEP 2: Does the patient need only setup/clean-up assistance from one helper? No. SIT TO STAND - STEP 3: Does the patient need only verbal/nonverbal cueing or touching/steadying/contact guard assistance fro m one helper? No. SIT TO STAND - STEP 4: Does the patient need physical assistance - for example lifting or trunk support from one helper - wi th the helper providing less than half of the effort? No. SIT TO STAND - STEP 5: Does the patient need physical assistance - for example lifting or trunk support from one helper - wi th the helper providing more than half of the effort? Yes. 1. [id number] ADMISSION PERFORMANCE: Substantial/maximal assistance CODE: 02 TRANSFERS: BED, CHAIR: Not attempted due to medical condition or safety concerns CODE: 88 TRANSFER TOILET: Not attempted due to medical condition or safety concerns CODE: 88 TRANSFERS: CAR: Not attempted due to medical condition or safety concerns CODE: 88 WALK 10 FEET: Not attempted due to medical condition or safety concerns CODE: 88 1 STEP (CURB): Not attempted due to medical condition or safety concerns CODE: 88 PICKING UP OBJECT: Not attempted due to medical condition or safety concerns CODE: 88 DOES THE PATIENT USE A WHEELCHAIR/SCOOTER? Q1. DOES THE PATIENT USE A WHEELCHAIR/SCOOTER?: Yes CODE: 1 WHEEL 50 FEET WITH TWO TURNS: Not attempted due to medical condition or safety concerns CODE: 88 INDICATE THE TYPE OF WHEELCHAIR/SCOOTER USED: CODE: EXPR WHEEL 150 FEET: Not attempted due to medical condition or safety concerns CODE: 88 INDICATE THE TYPE OF WHEELCHAIR/SCOOTER USED: CODE: EXPR BLADDER AND BOWEL: CODE: EXPR CODE: EXPR SIGNATURE PANEL: The following modified sections: 1. [id number] Admission Performance, 1. [id number] Admission Performance, 1. [id number] Admission Performance, 1. [id number] Admission Performance, 1. [id number] Admission Performance, Q1. Does the patient use a wheelchair/scooter?, Code were [electronically] signed by Grant centeno PT on FriAug 19 2019 15:19:39 [facility]-0600 (Central Standard Time)
[2019-08-19] MEDS: INSULIN GLARGINE 100 UNITS/ML SQ SCH (17:44)
[2019-08-19] MEDS: ATORVASTATIN 40 MG TAB PO SCH (19:44)
[2019-08-19] MEDS: JUVEN PACKET PO SCH (19:45)
[2019-08-19] MEDS ORDERED: PROMOD 30 ML DOSE PO SCH (20:00)
--- NOTE | 2019-08-19 20:50 | R.HP ---
FACILITY: [facility] ENCOUNTER DATE AND TIME: 08/19/2019 20:37 (SCHOOL LEADER) MR#: [id number] NAME BERLIN JAMES ADDRESS: [address] [place] [address] CITY: [place]IP [id number] PHONE: DATE OF : 1935 AGE: 83 SSN# [id number] GENDER: Male DEXTERITY Right-handed MARITAL STATUS RACE White PRE-HOSPITAL LIVING SETTING 01 - Home (private home/apt. board/care, assisted living, chcf, transitional living) PRE-HOSPITAL LIVING WITH Family/Relatives ENCOUNTER PHYSICIAN: Dr. Praveen Monroe M.D. 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 is a 83 yo Right-handed white male. On 07/14/2019 he was admitted to [facility] with diagnosis Severe PAD. His impairment category is Medically Complex Conditions 17 - Circulatory Disorders (17.4). Pre-morbidly, Pt. was independent/mod-I in Locomotion, Balance, Social Cognition, Safety Awareness, T ransfers Control, Sphincter Control, Communication, Self-Care, and Endurance; and he had good Locomot ion, Safety Awareness, Balance, Transfers Control, Social Cognition, Sphincter Control, Self-Care, Co mmunication, and Endurance. Currently, he has deficits of Locomotion, Safety Awareness, Balance, Transfers Control, Self-Care, an d Endurance. Pt. is now referred to [facility] for acute in-patient rehabilitation in order to maximize patient's functional independence in activities of daily living, strength, ROM, and mobi lity. Patient has realistic goal of being discharged at assistance level 6-Luis to reside at Home with Fam jojo/Relatives. MEDICATION ALLERGIES: HYDRROCHLOROTHIAZIDE NORCO ENVIRONMENTAL ALLERGIES: Iodine - Substance Allergies None Known - Other Allergies None Known PAST MEDICAL HISTORY: ATRIAL FIBRILLATION CAD CVA DMPAD GI BLEED HTN SEPSIS FAMILY HISTORY: Family history is not contributory. SOCIAL HISTORY: - Home Living Family/Relatives REVIEW OF SYSTEMS: - Gen No Chills Fatigue No Fever - Eyes No Double Vision No itchiness - ENMT No Difficulty Swallowing - CVS No Chest Discomfort No Chest Pain Fatigue No Weight Gain - Resp No Cough No Shortness of Breath - GI Continent No Abdominal Pain No Constipation No Diarrhea - Continent No Kidney Pain No Painful Urination No Urinary Urgency - MSK Joint Pain Muscle Cramps Stiffness - Skin No Itching No Rash No Suspicious Lesions - Neuro Coordination Difficulty No Difficulty with Concentration No Memory Loss No Seizures Weakness - Psych No Anxiety No Depression No HIV Exposure No Persistent Infections No Seasonal Allergies - Endo No Cold/Heat Intolerance No Excessive Hunger No Excessive Thirst No Excessive Urination PHYSICAL EXAM - Gen Alert and awake Lying in bed No apparent distress Oriented to: person, time, and place - Skin Right toe amputation shows poorly healed wound. No abnormalities - Eyes No abnormalities - ENMT No abnormalities - Neck No abnormalities - CVS RRR - Chest Pacemaker wound shows active drainage. - Resp Clear to auscultation - Abd Soft - GI Non distended Deferred - No abnormalities - Ext Mild bilateral lower extremity edema. - MSK 4+/5 weakness in both lower extremities. - Neuro 4/5 strength bilaterally upper and lower extremities. - Psych No abnormalities VITAL SIGNS Temperature: 98.0 F SBP/DBP: 121/68 Pulse: 69 Resp: 16 NURSING: - Shower allowing shower ACTIVITIES OOB only with supervision QI SCORES: - Self-Care A. Eating 05-Setup or clean-up assistance B. Oral hygiene 05-Setup or clean-up assistance C. Toileting hygiene 03-Partial/moderate assistance E. Shower/bathe self 03-Partial/moderate assistance F. Upper body dressing 04-Supervision or touching assistance G. Lower body dressing 03-Partial/moderate assistance H. Putting on/taking off footwear 02-Substantial/maximal assistance - Mobility A. Roll left and right 03-Partial/moderate assistance B. Sit to lying 03-Partial/moderate assistance C. Lying to sitting on side of bed 03-Partial/moderate assistance D. Sit to stand 03-Partial/moderate assistance E. Chair/bep-qk-xoybu transfer 03-Partial/moderate assistance F. Toilet transfer 03-Partial/moderate assistance G. Car transfer 10-Not attempted due to environmental limitations I. Walk 10 feet 03-Partial/moderate assistance J. Walk 50 feet with two turns 88-Not attempted due to medical condition or safety concerns K. Walk 150 feet 88-Not attempted due to medical condition or safety concerns L. Walking 10 feet on uneven surfaces 88-Not attempted due to medical condition or safety concerns M. 1 step (curb) 88-Not attempted due to medical condition or safety concerns N. 4 steps 88-Not attempted due to medical condition or safety concerns O. 12 steps 88-Not attempted due to medical condition or safety concerns P. Picking up object 88-Not attempted due to medical condition or safety concerns R. Wheel 50 feet with two turns 88-Not attempted due to medical condition or safety concerns S. Wheel 150 feet 88-Not attempted due to medical condition or safety concerns - Bladder and Bowel Bladder continence 0-Always continent Bowel continence 0-Always continent - Endurance Poor - Balance Poor - Safety Awareness Fair CURRENT FUNC. DEFICITS: Self-Care, Mobility, Endurance, Balance, and Safety Awareness MEDICATIONS: - Other See attached MAR (Medication Administration Record) ASSESSMENT: PtTal is a 83 yo Right-handed white male.On 07/14/2019 he was admitted to [facility] with diagnosis Severe PAD.His impairment category is Medically Complex Conditions 17 - Circulatory Disorders (17.4).Pre-morbidly, Pt. was independent/mod-I in Locomotion, Balance, Social Cognition, Sa fety Awareness, Transfers Control, Sphincter Control, Communication, Self-Care, and Endurance; and he had good Locomotion, Safety Awareness, Balance, Transfers Control, Social Cognition, Sphincter Contr ol, Self-Care, Communication, and Endurance.Currently, he has deficits of Locomotion, Safety Awarenes s, Balance, Transfers Control, Self-Care, and Endurance.Pt. is now referred to [facility] for acute in-patient rehabilitation in order to maximize patient's functional independenc e in activities of daily living, strength, ROM, and mobility.- Rehab Goal Patient has realistic goal of being discharged at assistance level 6-Luis to reside at Home with Fam jojo/Relatives. - Physical Therapy Gait dysfunction - to improve, our physical therapists will perform initial evaluation of pt's status upon admission and devise an individualized program for Gait Training, and Wheel Chair mobility Inability to transfer - to improve, our physical therapists will perform initial evaluation of pt's s tatus upon admission and devise an individualized program for Bed mobility Need for home safety evaluation - to improve, our physical therapists will perform initial evaluation of pt's status upon admission and devise an individualized program for Home Evaluation Need in caregiver upon discharge - to improve, our physical therapists will perform initial evaluatio n of pt's status upon admission and devise an individualized program for Caregiver Training New precaution - to improve, our physical therapists will perform initial evaluation of pt's status u andesr admission and devise an individualized program for Patient precaution education Edema - to improve, our physical therapists will perform initial evaluation of pt's status upon admi ssion and devise an individualized program for Elevation Training, and Lymphedema Therapy Having wound - to improve, our physical therapists will perform initial evaluation of pt's status up on admission and devise an individualized program for Wound Care Poor balance - to improve, our physical therapists will perform initial evaluation of pt's status upo n admission and devise an individualized program for Balance Training Poor endurance - to improve, our physical therapists will perform initial evaluation of pt's status u anders admission and devise an individualized program for Endurance Training Weakness - to improve, our physical therapists will perform initial evaluation of pt's status upon ad mission and devise an individualized program for Aquatic Therapy, Neuromuscular Reeducation, and Stre ngthening Achieving independence - to improve, our physical therapists will perform initial evaluation of pt's status upon admission and devise an individualized program for Community Reintegration Activities - Occupational Therapy ADL deficits - to improve, our occupation therapists will perform initial evaluation of pt's status u anders admission and devise an individualized program for Bathing, Bed mobility, Community Reintegration , Cooking, Dressing, Eating, Fine Motor Skills, Grooming, Homemaking, Kitchen Mobility, Laundry, Farideh ent Education, Safety Awareness, Splinting - Positioning, Transfers(Toilet, Tub, Shower), and Wheel C hair Management Need for lawn care professional - to improve, our occupation therapists will perform initial evaluation of pt's s tatus upon admission and devise an individualized program for Caregiver Training Weakness - to improve, our occupation therapists will perform initial evaluation of pt's status upon admission and devise an individualized program for Aquatic Therapy, Balance, Endurance, UE ROM, and U E strengthening MEDICAL PLAN: - Diet Type Start Regular - Diet - Liquid Texture Start Regular - Tube Feed Start N/A - Other See attached MAR (Medication Administration Record) - Diet - Solid Texture Regular - Shower shower DISCHARGE PLAN: - Estimated Length of Stay (days) 13. - Consensus on plan Discharge plan has been discussed with primary caregiver. Patient/Family is in agreement with the pamela n. Primary caregiver is in agreement with the plan. - Patient/Family Goals Return home with assistance. - Planned Living Setting Upon Discharge Home, to live with Family/Relatives. Transitional Living. SIGNATURE PANEL: (SCHOOL LEADER)
--- NOTE | 2019-08-19 20:53 | PAPE ---
PATIENT: [facility] MR# [id number] REFERRING DOCTOR CHIVO STANLEY EVALUATION DATE AND TIME 08/19/2019 20:50 (CIVIL DESIGNER) NAME BERLIN JAMES DATE OF 1935 AGE 83 PHONE SSN# [id number] GENDER male EVALUATING PHYSICIAN Dr. Praveen Monroe M.D. ADMISSION DIAGNOSIS: Severe PAD Critical Lower Limb Ischemia ONSET DATE 07/14/2019 SECONDARY/COMORBID DIAGNOSES TIERED: - N/A HTN CVA DMPAD ATRIAL FIBRILLATION GI BLEED SEPSIS CAD POST-ADMISSION FUNCTIONAL/MEDICAL STATUS: - Bladder Same accident frequency: Ind - No accidents in the past 7 days - Bowel Same accident frequency: Ind - No accidents in the past 7 days - Walking Same score based on distance walked: 0(N/A) - Wheelchair Same score based on distance traveled: 0(N/A) STATUS CHANGE EVALUATION: No change in Functional or Medical Status is identified compared with Pre-Admission screening. PATIENT NEEDS CLOSE MEDICAL SUPERVISION BY A REHABILITATION PHYSICIAN FOR: Coordination of Treatment Team Medical and Co-Morbidity Management PATIENT REQUIRES 24X7 REHAB NURSING FOR MEDICAL AND FUNCTIONAL MGT. OF THE FOLLOWING DEFICITS: Disease Management Medication Management Patient/Family Education Providing Safe Environment PATIENT REQUIRES INTENSIVE, COORDINATED INTERDISCIPLINARY APPROACH TO REHAB: Arranging Home Equipment/Services Discharge Planning Family Intervention/Training Psychologist Experimental/Case Management LIST OF IDENTIFIED AND POTENTIAL PROBLEMS: Alteration in leisure activities Bladder, Incontinence Bowel, Incontinence Infection, Actual or Potential Mobility Impaired Pain, Alteration in Comfort Self Care Deficit Skin Integrity, Actual or Potential Urinary Tract Infection (UTI), Actual or Potential RISK FOR COMPLICATIONS - CAD CHF. Cardiac Arrest. NE. Pain. - Atrial Fibrillation CVA. Heart failure. Limb embolus. INTERVENTIONS - CAD 02 sats. Activity management. Medications. VS. - Atrial Fibrillation Anticoagulation. Medications. VS. PATIENT COULD BE AT RISK FOR COMPLICATIONS FROM ADVERSE MEDICAL CONDITIONS DUE TO HIS/HER COMORBIDITI ES AND THE RIGORS OF THE INTENSIVE REHABILLITATION PROGRAM. METHODS OR INTERVENTIONS TO AVOID COMPLIC ATIONS INCLUDE: - Infection Clinical staff to assess and manage the signs and symptoms of infection including fever, redness, war mth, etc. - Urinary Tract Infection - Falls Patient will be evaluated for Fall Precautions and will be placed on Fall Precautions as indicated pe r protocol. - Skin Breakdown Nursing will assess skin daily using assessment tool and will place on Skin Breakdown Precautions as indicated per protocol. - Pain Clinical staff may employ non-medication methods such as massage, distraction, decrease stimulus, etc . as needed. Clinical staff will assess patient's pain level every shift per protocol to assess and e nsure pain management effectiveness. Medications will be given and the pain level re-assessed. PRELIMINARY PLAN OF CARE: - Physical Therapy Patient needs Physical Therapy for a daily minimum of 1.5 hours at least 5 out of 7 days, to improve: Mobility, Strengthening, Transfers, Stretching, ROM, Endurance, Ability to manage stairs, Gait, and Balance. - Speech Therapy Patient needs Speech Therapy for a daily minimum of 0.5 hours at least 5 out of 7 days, to improve: S wallowing, Cognition, Language Skills, and Compensatory Strategies. - Rehabilitation Nursing Patient requires 24x7 Rehabilitation Nursing for: Pain Issues, Identifying and preventing risk factor s, Monitoring and reporting current medical conditions, Assisting with ambulation and transfer, José Miguel ting with all ADL-s, Teaching patients about disease process and medications, Family teaching, Provid ing safe environment, Bowel and Bladder Issues, Skin Integrity, and Medication Management. Patient needs Psychologist Experimental and/or Case Management for: Discharge Planning, Arranging Home Equipmen t or Services, and Family Interventions. - Dietary and Nutrition Services Patient needs Dietary and Nutrition Services for: Adequate Nutrition, Nutritional Supplements, and Nu tritional Education. - Occupational Therapy Patient needs Occupational Therapy for a daily minimum of 1.5 hours at least 5 out of 7 days, to impr ove Activities of Daily Living, including: Eating, Grooming, Bathing, Dressing, Toileting, Toilet Tra nsfers, Community Reintegration, Higher functional activities, Adaptive Equipment, Splinting, Househo ld Tasks, and Other activities as determined. QI SCORES: - Self-Care A. Eating 05-Setup or clean-up assistance B. Oral hygiene 05-Setup or clean-up assistance C. Toileting hygiene 03-Partial/moderate assistance E. Shower/bathe self 03-Partial/moderate assistance F. Upper body dressing 04-Supervision or touching assistance G. Lower body dressing 03-Partial/moderate assistance H. Putting on/taking off footwear 02-Substantial/maximal assistance - Mobility A. Roll left and right 03-Partial/moderate assistance B. Sit to lying 03-Partial/moderate assistance C. Lying to sitting on side of bed 03-Partial/moderate assistance D. Sit to stand 03-Partial/moderate assistance E. Chair/xoj-vs-uhyga transfer 03-Partial/moderate assistance F. Toilet transfer 03-Partial/moderate assistance G. Car transfer 10-Not attempted due to environmental limitations I. Walk 10 feet 03-Partial/moderate assistance J. Walk 50 feet with two turns 88-Not attempted due to medical condition or safety concerns K. Walk 150 feet 88-Not attempted due to medical condition or safety concerns L. Walking 10 feet on uneven surfaces 88-Not attempted due to medical condition or safety concerns M. 1 step (curb) 88-Not attempted due to medical condition or safety concerns N. 4 steps 88-Not attempted due to medical condition or safety concerns O. 12 steps 88-Not attempted due to medical condition or safety concerns P. Picking up object 88-Not attempted due to medical condition or safety concerns R. Wheel 50 feet with two turns 88-Not attempted due to medical condition or safety concerns S. Wheel 150 feet 88-Not attempted due to medical condition or safety concerns - Bladder and Bowel Bladder continence 0-Always continent Bowel continence 0-Always continent - Endurance Poor - Balance Poor - Safety Awareness Fair POTENTIAL FUNCTIONAL GOALS FOR PATIENT TO ACHIEVE BY DISCHARGE: - Safety Precaution Patient will remain free from falls or injury at time of discharge. - Bed Mobility Patient will perform bed mobility at 4-Sheryl level of assistance. - Transfers Patient will complete transfers from bed to chair at 4-Sheryl level of assistance. - Mobility Patient will ambulate 150 ft with 4-Sheryl level of assistance with RW. PATIENT REHAB POTENTIAL AimeeTal WHITFIELDLILLIANGretchen is able and expected to receive 3 hours of individualized therapy daily on at least 5 of e very 7 days Pardeep JAMES's prognosis for significant practical improvement within a reasonable period of time appea rs Good Expected level of measurable improvement will be of a practical value to Pardeep JAMES's functional capa city or adaptations to impairments Has a viable Discharge Plan Medically appropriate; condition is sufficiently stable to participate in intensive rehab program DISCHARGE PLAN: - Estimated Length of Stay (days) 13. - Consensus on plan Discharge plan has been discussed with primary caregiver. Patient/Family is in agreement with the pamela n. Primary caregiver is in agreement with the plan. - Patient/Family Goals Return home with assistance. - Planned Living Setting Upon Discharge Home, to live with Family/Relatives. Transitional Living. CONCLUSION ON REHABILITATION NECESSITY: I have evaluated patient's pre-admission functional status and, comparing it to the patient's post-ad mission functional status now, I conclude that the pre-admission assessment was accurate. Patient's c ondition on admission supports the medical necessity of admission to [facility]. It is safe to proceed with patient's therapy program. SIGNATURE PANEL: (CIVIL DESIGNER)
[2019-08-19] MEDS: MELATONIN 3 MG TABLET PO PRN (22:32)
[2019-08-20] MEDS: METOPROLOL XL 50 MG TAB PO SCH (05:19)
[2019-08-20 06:13] LABS: Hematocrit 22.3 % (39.6-49.0)
[2019-08-20] MEDS: INSULIN -REGULAR HUMAN 50 UNIT/0.5 ML ML SQ SCH ×4 (07:30→20:16)
[2019-08-20] MEDS ORDERED: INSULIN GLARGINE 100 UNITS/ML SQ SCH (08:00)
[2019-08-20] MEDS: INSULIN GLARGINE 100 UNITS/ML SQ SCH ×2 (08:29→17:13)
[2019-08-20] MEDS: BUMETANIDE 1 MG TABLET PO SCH (08:31)
[2019-08-20] MEDS: FE SULF/FA/VIT B COMP & C TAB PO SCH (08:31)
[2019-08-20] MEDS: TAMSULOSIN 0.4 MG SR CAP PO SCH (08:31)
[2019-08-20] MEDS: FERROUS SULFATE 325 MG TAB PO SCH (08:31)
[2019-08-20] MEDS: levoFLOXacin 750 MG TAB PO SCH (08:31)
[2019-08-20] MEDS: LOSARTAN POTASSIUM 50 MG TABLET PO SCH (08:32)
[2019-08-20] MEDS: JUVEN PACKET PO SCH ×2 (08:32→20:04)
[2019-08-20] MEDS: ASPIRIN EC 81 MG TAB PO SCH (08:32)
[2019-08-20] MEDS ORDERED: NA CHLORIDE 0.9% 250 ML IV SCH (10:00)
[2019-08-20] MEDS ORDERED: DOCUSATE NA/SENNA CONC 1 TAB PO PRN (10:00)
--- NOTE | 2019-08-20 10:12 | P.RH.PN ---
Estimated Length of Stay: 15 Expected Discharge Date: 09/01/19 Discharge Disposition Plan: Home Family Support: Yes Group Home Goal: Mobility, Transfers, Self Care Vital Signs: Last Vital Signs Temp 97.2 F 08/20/19 07:29 Pulse 76 08/20/19 08:31 Resp 16 08/20/19 07:29 BP 130/66 08/20/19 08:31 Pulse Ox 98 08/20/19 07:29 Laboratory: Laboratory Last Values WBC 8.6 K/uL (4.3-10.9) 08/19/19 05:44 RBC 2.53 M/uL (4.33-5.43) L 08/19/19 05:44 Hgb 7.6 g/dL (13.6-17.9) L* 08/20/19 05:50 Hct 22.3 % (39.6-49.0) L 08/20/19 05:50 MCV 92.3 fL (80-100) 08/19/19 05:44 MCH 31.9 pg (27.0-35.0) 08/19/19 05:44 MCHC 34.6 g/dL (32.0-36.0) 08/19/19 05:44 RDW 15.0 % (12.1-15.2) 08/19/19 05:44 Plt Count 235 K/uL (152-406) 08/19/19 05:44 MPV 8.0 fL (7.6-11.3) 08/19/19 05:44 Neutrophils % 60.2 % (41.7-73.7) 08/19/19 05:44 Lymphocytes % 20.9 % (15.3-44.8) 08/19/19 05:44 Monocytes % 8.6 % (3.3-12.3) 08/19/19 05:44 Eosinophils % 9.4 % (0-4.4) H 08/19/19 05:44 Basophils % 0.9 % (0-1.3) 08/19/19 05:44 Absolute Neutrophils 5.2 K/uL (1.8-8.0) 08/19/19 05:44 Absolute Lymphocytes 1.8 K/uL (0.7-4.9) 08/19/19 05:44 Absolute Monocytes 0.7 K/uL (0.1-1.3) 08/19/19 05:44 Absolute Eosinophils 0.8 K/uL (0-0.5) H 08/19/19 05:44 Absolute Basophils 0.1 K/uL (0-0.5) 08/19/19 05:44 Sodium 140 mmol/L (136-145) 08/19/19 05:44 Potassium 3.6 mmol/L (3.5-5.1) 08/19/19 05:44 Chloride 104 mmol/L (98-107) 08/19/19 05:44 Carbon Dioxide 29 mmol/L (21-32) 08/19/19 05:44 BUN 21 mg/dL (7-18) H 08/19/19 05:44 Creatinine 1.05 mg/dL (0.55-1.3) 08/19/19 05:44 Estimated GFR 67 mL/min (=/>90) L 08/19/19 05:44 Glucose 112 mg/dL (74-106) H 08/19/19 05:44 POC Glucose 139 mg/dl (65-120) H 08/20/19 07:08 Calcium 8.5 mg/dL (8.5-10.1) 08/19/19 05:44 Magnesium Cancelled 08/19/19 06:00 Albumin 2.6 g/dL (3.4-5.0) L 08/19/19 05:44 Prealbumin 12.9 mg/dL (20-40) L 08/19/19 05:44 Urine Color Dk yellow 08/18/19 16:13 Urine Appearance Clear 08/18/19 16:13 Urine pH 6.5 (5.0-7.0) 08/18/19 16:13 Ur Specific Compton 1.015 (1.005-1.030) 08/18/19 16:13 Urine Ketones Negative (NEG) 08/18/19 16:13 Urine Blood Negative (NEG) 08/18/19 16:13 Urine Nitrite Negative (NEG) 08/18/19 16:13 Urine Bilirubin Negative (NEG) 08/18/19 16:13 Urine Urobilinogen 0.2 mg/dL (0.2-1.0) 08/18/19 16:13 Ur Leukocyte Esterase Negative (NEG) 08/18/19 16:13 Urine RBC <5 /HPF (NONE SEEN) 08/18/19 16:13 Urine WBC <5 /HPF (<5) 08/18/19 16:13 Ur Squamous Epith Cells <5 /HPF (NONE SEEN) 08/18/19 16:13 Amorphous Sediment 1+ /HPF (NONE SEEN) 08/18/19 16:13 Urine Bacteria <20 /HPF (NONE SEEN) 08/18/19 16:13 Urine Culture Reflexed Not needed 08/18/19 16:13 Urine Glucose Negative (NEG) 08/18/19 16:13 Urine Total Protein Negative (NEG) 08/18/19 16:13 ABO/Rh O POSITIVE 08/20/19 07:27 Antibody Screen Negative 08/20/19 07:27 Crossmatch See Detail 08/20/19 07:27 Weight: 214 lb Wound Present: Yes Closed Surgical Incision Present: Yes Negative Pressure Wound Therapy Present: No Physician Update: His Hgb is low at 7.6 with continued left chest bleeding. He will get one unit of PRBCs. He is not able to use the left arm due to restrictions after the pacemaker placement. His is very weak and unable to do 3 hours of therapy. He will likely be discharged to SNF next week. Medical Issues: Patient is incontinent daily with bladder and always continent with bowel Pain Issues: PAtient is taking Tylenol 500mg Q4H PO PRN and Tramadol 50mg Q4H PO PRN for pain Functional Improvement: pt presents with severe generalized weakness. pt exhibits poor trunk strength. pt demonstrates poor balance and stability in both sitting and standing. pt was quit lethergic throughout the session. He exhibits slow processing. pt experiences poor tolerance to functional activity due to pain, fatigue, weakness, SoB, and lack of cognition. Skilled PT services are necessary to address the above mentioned impairments and functional limitations. Speech Therapy Update: Patient obtained a 04/18 on the BIMS and a 07/30 on an adapted MMSE (Folstein) indicating a severe cognitive impairment. Deferred reading, writing, and copying portions due to lethargy and weakness. Patient deficits are characterized by delayed processing and response time, decreased orientation, poor STM, and decreased safety awareness and ability to solve problems. Summary: Patient's care plan and jail goals have been reviewed and revised as necessary. Please see the Rehabilitation Signature page for all necessary signatures.
[2019-08-20] MEDS: ACETAMINOPHEN 500 MG TAB PO PRN (11:22)
--- NOTE | 2019-08-20 12:21 | RAD REPORT ---
EXAM DESCRIPTION: RAD - Chest Single View - 08/20/2019 12:02 pm CLINICAL HISTORY: Shortness of breath COMPARISON: September 2018 TECHNIQUE: AP portable chest image was obtained 1158 hours . FINDINGS: No peripheral mass or consolidation. Interstitial pattern is not substantially different f rom the comparison when adjusting for the current shallow inspiration. Significant failure or volume overload are not suspected. Pacemaker has been placed since the prior study. Heart and vasculature are normal. No measurable pleu ral effusion and no pneumothorax. No acute bony abnormality seen. No acute aortic findings suspected. IMPRESSION: No acute cardiopulmonary process. Pacemaker has been placed since prior study. No other significant interval change.
[2019-08-20] MEDS: MEDIHONEY 44 ML TOPICAL TUBE TOP SCH (13:19)
[2019-08-20] MEDS: MAGNESIUM HYDROXIDE 8% 30 ML PO PRN (14:22)
--- NOTE | 2019-08-20 14:41 | CON ---
Date of Consultation: 08/19/2019 Reason For Consultation: Severe peripheral arterial disease, status post CABG, status post aortic va lve replacement and a pacemaker, recently at [facility]. He is now in rehab. History Of Present Illness: Mr. Goldman is an 83-year-old white male. He is very well known to me f rom previous office visits. He has had severe peripheral arterial disease for many years. He had a left fem-pop, but he was considered not to be a surgical candidate for the right leg. However, he co ntinues to have severe claudication, severe leg pain even at rest. I sent him to a vascular surgeon in [place], I believe is Dr. Durán. They did a preop evaluation including a catheterization and echo cardiography, and he underwent after that a CABG and aortic valve replacement. In my office about a year ago, he had a moderate aortic stenosis. Apparently that has worsened. His last stress test in my office was in 2014 that was normal. He has not had any chest pain prior to me sending him to [facility]. Nevertheless, apparently he underwent a CABG, aortic valve replacement, following that he ended up having a pacemaker. I do not know the details as far as that is concerned. He also und erwent a what sounds like an atherectomy of his right SFA, but they could not do anything below the k nee. 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 He is now here for his rehab. He do es not really have any cardiac complaint except that the pacemaker site is bleeding. Dr. Maxwell pl aced the pacemaker. The nurses contacted him and he recommended applying pressures. He was also ane bari when he came in, hemoglobin of 8.1. He had had blood transfusions at [facility]. Appar ently, he also felt like he had a stroke while he was there. There was some plan of action doing a b elow-knee amputation, but they do not think that how to handle it. Right now, there is no cardiac co mplaint. Past Medical History: Also includes history of hypertension and dyslipidemia. Allergies: NONE. Review of Systems: Negative. Social History: Negative. Medications: Listed by Dr. Fer dimas. Physical Examination: General: Mr. Goldman appears to be alert and oriented x3. Slightly depressed. Vital Signs: Stable. He was in sinus rhythm. He was afebrile HEENT: Negative. Neck: Supple with no bruit. Chest: Clear. Cardiac: Revealed a regular rhythm and rate with no murmurs, gallops, or rubs. Abdomen: Obese, but benign. Extremities: Showed what looks like a necrotic tissues in the right foot. He is status post amputat ion of the first and second metatarsals. You can see the bones. Does not to be infected. He also h ad some ischemic changes in the left foot as well. Diagnostic Data: Showed anemia, paced rhythm, and negative chest x-ray. Impression And Plan: Severe peripheral arterial disease. We will get Wound Care to see him. I thin k he needs to get a surgical consultation. I think I am going to get another echocardiogram on him, but I think if he is a candidate, I think the best thing to do would be to do an amputation below the knee on the right for now. I will discuss the case further with Dr. Monroe and the family and the general surgeon and Wound Care. Rest of his problems seems to be stable at this point. His echocar diogram will help us to determine what his ejection fraction and his aortic valve replacement status are. He has a pacemaker that is bleeding that needs to have pressure held on it. We will watch his hemoglobin and transfuse if his hemoglobin goes to 7 or below. Continue his present regimen, otherwise. Patient should not be on Plavix and we will stop that. We will continue to follow him. MIRIAM/EMILIE Voice ID: [id number] Report ID: [id number]
--- NOTE | 2019-08-20 15:35 | PN ---
Date of Progress Note: 08/20/2019 Mr. Goldman's main problem is peripheral arterial disease. He has ischemic legs. He has necrotic ti ssues in the right lower extremity, status post amputation of the 1st and 2nd toe. He has eschar. H e has what appears to be necrotic tissue on the heel as well. I am very doubtful that this will heal even despite wound care. I think an amputation [id number] is very reasonable. Echocardiogram y was done to evaluate his ejection fraction and to see if he is a candidate for surgery and h is EF is 60% with adequate aortic valve replacement that is bioprosthetic. I believe an amputation i s indicated. I will obtain surgical consultation today and go from there. No change in his medical therapy. His hemoglobin dropped to 7.6. Bleeding at the pacemaker site has improved. MIRIAM/EMILIE Voice ID: [id number] Report ID: [id number]
--- NOTE | 2019-08-20 16:39 | RAD REPORT ---
EXAM DESCRIPTION: RAD - Femur Right - 08/20/2019 3:51 pm CLINICAL HISTORY: Right leg pain, possible metallic foreign body COMPARISON: None. FINDINGS: Mild for age right hip joint degenerative change. No fracture or dislocation of the proxim al right femur. Right total knee prosthesis in place. No radiographic evidence for loosening. Dense a rterial tree calcifications are present. Numerous surgical clips are present presumed to be from vein harvesting. No metallic foreign body other than the small hemostasis clips. No pathologic bone process. No air or other foreign body in the soft tissues. IMPRESSION: Numerous small hemostasis clips from prior vein harvesting. No other metallic foreign ernesto dies. Right total knee prosthesis with no acute component.
--- NOTE | 2019-08-20 18:14 | CON ---
Date of Consultation: 08/20/2019 Reason For Consultation: Severe peripheral vascular disease with gangrene, evaluate for amputation. History Of Present Illness: The patient is an 83-year-old gentleman who was admitted to the rehab [facility] yesterday after undergoing a ray amputation of the right fifth toe at the [facility] a coronary angiogram, aortic valve replacement, pacemaker placement, angioplasty of the right commo n femoral artery with patch, and he has gangrene of the right foot and appears that he requires eithe r a BKA or AKA and I was asked to evaluate. He is awake, alert, no acute distress. His procedure th at he had done are as follows. A venogram on 07/16, first ray right foot amputation 07/19, right and left heart cath 07/27, right and left angiogram 07/30, PCI on 08/03, TAVR on 08/10, left heart mark terization on 08/10, angiographic temporary pacing on 08/10, common femoral artery endarterectomy wit h patch repair on 08/10. Review of Systems: Otherwise unremarkable. Medical History: Significant for AFib, coronary artery disease, peripheral vascular disease, stroke, GI bleed, hypertension, sepsis. Past Surgical History: Bilateral knee surgery, left shoulder replacement, right fem-pop, right hand autologous graft, right fourth finger partial amputation. Social History: Patient used to smoke, does not currently; drinks occasionally. Family History: Noncontributory. Physical Examination: Vital Signs: Stable. He is afebrile. General: He is awake, alert. Head and Neck: No masses. Chest: Clear. Heart: S1, S2. Abdomen: Soft. Extremities: Diminished femoral popliteal pulses. No popliteal pulses felt in the right, behind the right knee. No dorsalis pedis in the right foot or posterior tibial. Left heel has a small blister about 2 cm and the right foot where the ray amputation was done is dry gangrene. There is minimal e rythema surrounding it. There is no purulent discharge. There is bone exposed and it is a fairly la rge wound. There is mottled skin all the way up to the knee on the right leg. Laboratory Data: Reviewed. His pacemaker site has been oozing a little bit of blood. He is down to 7.6 and 22.3 H and H and is being transfused. He has a pressure dressing on. It is currently not b leeding. His Plavix was held from yesterday. Chemistry reviewed. Chest x-ray shows no significant change. Assessment: 83-year-old gentleman with multiple medical problems with severe peripheral vascular dis ease with gangrene of the right foot. Recommendations: At this time, the patient needs to be medically stabilized with transfusion of bloo d. He had an echo this morning, which shows 60% of ejection fraction. He has been cleared by Cardio logy for amputation. He does require an amputation. I think the best amputation for this patient wo uld be above-knee amputation as there is mottled skin all the way up to the knee. This would allow t he best healing. The risks, benefits, and alternatives to surgery were discussed with the family. T he family is going to discuss all their options and get back to us when they do we abide by their wis hes. Plan of care discussed in detail with Dr. Monroe. RACHELLE/MODChristi Voice ID: [id number] Report ID: [id number]
[2019-08-20] MEDS: TRAMADOL HCL 50 MG TAB PO PRN (18:51)
[2019-08-20] MEDS: MELATONIN 3 MG TABLET PO PRN (20:03)
[2019-08-20] MEDS: ATORVASTATIN 40 MG TAB PO SCH (20:03)
[2019-08-20 20:09] LABS: Hematocrit 25.2 % (39.6-49.0)
--- NOTE | 2019-08-21 02:03 | FAST ---
SHIFT START DATE/TIME: 08/20/2019 19:00 (PIPE LAYER) SHIFT END DATE/TIME: 08/21/2019 07:00 (PIPE LAYER) NAME BERLIN JAMES DATE OF : 1935 DATE OF ADMISSION: 08/18/2019 16:02 (PIPE LAYER) PHONE: AGE: 83 N# [id number] GENDER: Male ENCOUNTER PHYSICIAN: Dr. Praveen Monroe M.D. ADMISSION DIAGNOSIS: - Medically Complex Conditions 17 - Circulatory Disorders (17.4) Severe PAD. Critical Lower Limb Ischemia. EATING: Not assessed/no information CODE: - ORAL HYGIENE: Not assessed/no information CODE: - TOILETING HYGIENE: TOILETING HYGIENE - STEP 1: Does the patient complete the activity by him/herself with no assistance (physical, verbal/nonverbal cueing, setup/clean-up)? No. TOILETING HYGIENE - STEP 2: Does the patient need only setup/clean-up assistance from one helper? No. TOILETING HYGIENE - STEP 3: Does the patient need only verbal/nonverbal cueing or touching/steadying/contact guard assistance fro m one helper? No. TOILETING HYGIENE - STEP 4: Does the patient need physical assistance - for example lifting or trunk support from one helper - wi th the helper providing less than half of the effort? No. TOILETING HYGIENE - STEP 5: Does the patient need physical assistance - for example lifting or trunk support from one helper - wi th the helper providing more than half of the effort? Yes. 1. [id number] ADMISSION PERFORMANCE: Substantial/maximal assistance CODE: 02 BATHING: Not assessed/no information CODE: - DRESSING - UPPER BODY: Not assessed/no information CODE: - DRESSING - LOWER BODY: Not assessed/no information CODE: - PUTTING ON/TAKING OFF FOOTWEAR: Not assessed/no information CODE: - ROLL LEFT AND RIGHT: ROLL LEFT AND RIGHT - STEP 1: Does the patient complete the activity by him/herself with no assistance (physical, verbal/nonverbal cueing, setup/clean-up)? No. ROLL LEFT AND RIGHT - STEP 2: Does the patient need only setup/clean-up assistance from one helper? No. ROLL LEFT AND RIGHT - STEP 3: Does the patient need only verbal/nonverbal cueing or touching/steadying/contact guard assistance fro m one helper? No. ROLL LEFT AND RIGHT - STEP 4: Does the patient need physical assistance - for example lifting or trunk support from one helper - wi th the helper providing less than half of the effort? No. ROLL LEFT AND RIGHT - STEP 5: Does the patient need physical assistance - for example lifting or trunk support from one helper - wi th the helper providing more than half of the effort? Yes. 1. [id number] ADMISSION PERFORMANCE: Substantial/maximal assistance CODE: 02 SIT TO LYING: Not assessed/no information CODE: - LYING TO SITTING: Not assessed/no information CODE: - SIT TO STAND: Not assessed/no information CODE: - TRANSFERS: BED, CHAIR: Not assessed/no information CODE: - TRANSFER TOILET: Not assessed/no information CODE: - TRANSFERS: CAR: Not assessed/no information CODE: - WALK 10 FEET: Not assessed/no information CODE: - 1 STEP (CURB): Not assessed/no information CODE: - PICKING UP OBJECT: Not assessed/no information CODE: - DOES THE PATIENT USE A WHEELCHAIR/SCOOTER? CODE: EXPR WHEEL 50 FEET WITH TWO TURNS: Not assessed/no information CODE: - INDICATE THE TYPE OF WHEELCHAIR/SCOOTER USED: CODE: EXPR WHEEL 150 FEET: Not assessed/no information CODE: - INDICATE THE TYPE OF WHEELCHAIR/SCOOTER USED: CODE: EXPR BLADDER AND BOWEL: H350. BLADDER CONTINENCE (3-DAY ASSESSMENT PERIOD): Always incontinent CODE: 4 H400. BOWEL CONTINENCE (3-DAY ASSESSMENT PERIOD): Always incontinent (no episodes of continent bowel movements) CODE: 3
[2019-08-21 05:32] VITALS: BMI 26.9
[2019-08-21] MEDS: METOPROLOL XL 50 MG TAB PO SCH (05:32)
[2019-08-21] MEDS: INSULIN -REGULAR HUMAN 50 UNIT/0.5 ML ML SQ SCH ×4 (06:53→19:10)
[2019-08-21] MEDS: JUVEN PACKET PO SCH ×2 (08:26→18:57)
[2019-08-21] MEDS: INSULIN GLARGINE 100 UNITS/ML SQ SCH ×2 (08:28→17:42)
[2019-08-21] MEDS: ACETAMINOPHEN 500 MG TAB PO PRN ×2 (08:28→18:56)
[2019-08-21] MEDS: LOSARTAN POTASSIUM 50 MG TABLET PO SCH (08:29)
[2019-08-21] MEDS: DULOXETINE 20 MG CAP PO SCH (08:30)
[2019-08-21] MEDS: FE SULF/FA/VIT B COMP & C TAB PO SCH (08:30)
[2019-08-21] MEDS: TAMSULOSIN 0.4 MG SR CAP PO SCH (08:30)
[2019-08-21] MEDS: BUMETANIDE 1 MG TABLET PO SCH (08:30)
[2019-08-21] MEDS: FERROUS SULFATE 325 MG TAB PO SCH (08:30)
[2019-08-21] MEDS: ASPIRIN EC 81 MG TAB PO SCH (08:30)
[2019-08-21] MEDS: levoFLOXacin 750 MG TAB PO SCH (08:30)
[2019-08-21] MEDS: MEDIHONEY 44 ML TOPICAL TUBE TOP SCH (12:12)
[2019-08-21] MEDS: MAGNESIUM CITRATE 300 ML BOT PO SCH ×2 (13:51→14:00)
[2019-08-21] MEDS: MAGNESIUM HYDROXIDE 8% 30 ML PO PRN (14:16)
[2019-08-21] MEDS: TRAMADOL HCL 50 MG TAB PO PRN (17:03)
--- NOTE | 2019-08-21 17:37 | FAST ---
ENCOUNTER DATE AND TIME: 08/21/2019 08:00 (HIM SPECIALIST) NAME BERLIN JAMES DATE OF : 1935 DATE OF ADMISSION: 08/18/2019 16:02 (HIM SPECIALIST) PHONE: AGE: 83 N# [id number] GENDER: Male ENCOUNTER PHYSICIAN: Dr. Praveen Monroe M.D. ADMISSION DIAGNOSIS: - Medically Complex Conditions 17 - Circulatory Disorders (17.4) Severe PAD. Critical Lower Limb Ischemia. EATING: Not assessed/no information CODE: - ORAL HYGIENE: ORAL HYGIENE - STEP 1: Does the patient complete the activity by him/herself with no assistance (physical, verbal/nonverbal cueing, setup/clean-up)? No. ORAL HYGIENE - STEP 2: Does the patient need only setup/clean-up assistance from one helper? No. ORAL HYGIENE - STEP 3: Does the patient need only verbal/nonverbal cueing or touching/steadying/contact guard assistance fro m one helper? No. ORAL HYGIENE - STEP 4: Does the patient need physical assistance - for example lifting or trunk support from one helper - wi th the helper providing less than half of the effort? No. ORAL HYGIENE - STEP 5: Does the patient need physical assistance - for example lifting or trunk support from one helper - wi th the helper providing more than half of the effort? Yes. 1. [id number] ADMISSION PERFORMANCE: Substantial/maximal assistance CODE: 02 TOILETING HYGIENE: Not assessed/no information CODE: - BATHING: Not assessed/no information CODE: - DRESSING - UPPER BODY: DRESSING - UPPER BODY - STEP 1: Does the patient complete the activity by him/herself with no assistance (physical, verbal/nonverbal cueing, setup/clean-up)? No. DRESSING - UPPER BODY - STEP 2: Does the patient need only setup/clean-up assistance from one helper? No. DRESSING - UPPER BODY - STEP 3: Does the patient need only verbal/nonverbal cueing or touching/steadying/contact guard assistance fro m one helper? No. DRESSING - UPPER BODY - STEP 4: Does the patient need physical assistance - for example lifting or trunk support from one helper - wi th the helper providing less than half of the effort? No. DRESSING - UPPER BODY - STEP 5: Does the patient need physical assistance - for example lifting or trunk support from one helper - wi th the helper providing more than half of the effort? Yes. 1. [id number] ADMISSION PERFORMANCE: Substantial/maximal assistance CODE: 02 DRESSING - LOWER BODY: Not assessed/no information CODE: - PUTTING ON/TAKING OFF FOOTWEAR: Not assessed/no information CODE: - DOES THE PATIENT USE A WHEELCHAIR/SCOOTER? CODE: EXPR INDICATE THE TYPE OF WHEELCHAIR/SCOOTER USED: CODE: EXPR INDICATE THE TYPE OF WHEELCHAIR/SCOOTER USED: CODE: EXPR BLADDER AND BOWEL: CODE: EXPR CODE: EXPR SIGNATURE PANEL: The following modified sections: 1. [id number] Admission Performance, 1. [id number] Admission Performance w ere [electronically] signed by Vikki Schwartz OT on Sat Aug 21 2019 17:35:51 GMT-0600 (Central Stand marcos Time)
[2019-08-21] MEDS: ATORVASTATIN 40 MG TAB PO SCH (18:56)
[2019-08-21] MEDS: MELATONIN 3 MG TABLET PO PRN (18:57)
[2019-08-22] MEDS: METOPROLOL XL 50 MG TAB PO SCH (05:48)
[2019-08-22] MEDS: TRAMADOL HCL 50 MG TAB PO PRN ×3 (05:48→18:51)
[2019-08-22] MEDS: INSULIN -REGULAR HUMAN 50 UNIT/0.5 ML ML SQ SCH ×4 (06:53→19:45)
[2019-08-22] MEDS: ACETAMINOPHEN 500 MG TAB PO PRN (08:03)
[2019-08-22] MEDS: INSULIN GLARGINE 100 UNITS/ML SQ SCH ×2 (08:04→16:54)
[2019-08-22] MEDS: TAMSULOSIN 0.4 MG SR CAP PO SCH (08:05)
[2019-08-22] MEDS: BUMETANIDE 1 MG TABLET PO SCH (08:05)
[2019-08-22] MEDS: FE SULF/FA/VIT B COMP & C TAB PO SCH (08:05)
[2019-08-22] MEDS: LOSARTAN POTASSIUM 50 MG TABLET PO SCH (08:05)
[2019-08-22] MEDS: levoFLOXacin 750 MG TAB PO SCH (08:06)
[2019-08-22] MEDS: JUVEN PACKET PO SCH ×2 (08:06→18:52)
[2019-08-22] MEDS: DULOXETINE 20 MG CAP PO SCH (08:06)
[2019-08-22] MEDS: ASPIRIN EC 81 MG TAB PO SCH (08:06)
[2019-08-22] MEDS: FERROUS SULFATE 325 MG TAB PO SCH (08:06)
[2019-08-22] MEDS: MEDIHONEY 44 ML TOPICAL TUBE TOP SCH (08:07)
[2019-08-22] MEDS: ATORVASTATIN 40 MG TAB PO SCH (18:51)
[2019-08-22] MEDS: MELATONIN 3 MG TABLET PO PRN (18:51)
[2019-08-23] MEDS: METOPROLOL XL 50 MG TAB PO SCH (05:06)
[2019-08-23] MEDS: INSULIN -REGULAR HUMAN 50 UNIT/0.5 ML ML SQ SCH ×4 (07:30→20:43)
--- NOTE | 2019-08-23 08:06 | ECHO ---
HEIGHT: 5 ft 11 in WEIGHT: 192 lb 9.6 oz DATE OF STUDY: 08/20/[address]: Jacinto Glass MD 2-DIMENSIONAL: YES M.MODE: YES DOPPLER: YES COLOR FLOW: YES TDS: YES PORTABLE: NO DEFINITY: NO BUBBLE STUDY: NO DIAGNOSIS: CONGESTIVE HEART FAILURE CARDIAC HISTORY: CATHERIZATION: NO SURGERY: NO PROSTHETIC VALVE: YES PACEMAKER: YES MEASUREMENTS (cm) DIASTOLIC (NORMALS) SYSTOLIC (NORMALS) IVSd 1.0 (0.6-1.2) LA Diam 4.1 (1.9-4.0) LVEF 61% LVIDd 4.4 (3.5-5.7) LVIDs 3.0 (2.0-3.5) %FS 33% LVPWd 1.1 (0.6-1.2) Ao Diam 3.1 (2.0-3.7) 2 DIMENSIONAL ASSESSMENT: RIGHT ATRIUM: NORMAL LEFT ATRIUM: DILATED RIGHT VENTRICLE: PACEMAKER LEFT VENTRICLE: NORMAL TRICUSPID VALVE: NORMAL MITRAL VALVE: NORMAL PULMONIC VALVE: NORMAL AORTIC VALVE: STATUS POST AORTIC VALVE REPLACEMENT PERICARDIAL EFFUSION: NONE AORTIC ROOT: NORMAL LEFT VENTRICULAR WALL MOTION: PARADOXICAL SEPTUM. DOPPLER/COLOR FLOW: NORMAL COMMENTS: PARADOXICAL SEPTUM. NORMAL LEFT VENTRICULAR EJECTION FRACTION AND LEFT VENTRICULAR SIZE. PERMANENT PACEMAKER IN RIGHT VENTRICULAR APEX. STATUS POST BIOPROSTHETIC AORTIC VALVE REPLACEMENT, NORMAL FUNCTION. TECHNOLOGIST: Gael CHRISTIANSEN
[2019-08-23] MEDS: MEDIHONEY 44 ML TOPICAL TUBE TOP SCH (08:17)
[2019-08-23] MEDS: INSULIN GLARGINE 100 UNITS/ML SQ SCH ×2 (08:17→16:39)
[2019-08-23] MEDS: DULOXETINE 20 MG CAP PO SCH (08:18)
[2019-08-23] MEDS: levoFLOXacin 750 MG TAB PO SCH (08:18)
[2019-08-23] MEDS: TAMSULOSIN 0.4 MG SR CAP PO SCH (08:18)
[2019-08-23] MEDS: ASPIRIN EC 81 MG TAB PO SCH (08:18)
[2019-08-23] MEDS: TRAMADOL HCL 50 MG TAB PO PRN ×3 (08:18→18:43)
[2019-08-23] MEDS: FE SULF/FA/VIT B COMP & C TAB PO SCH (08:18)
[2019-08-23] MEDS: FERROUS SULFATE 325 MG TAB PO SCH (08:19)
[2019-08-23] MEDS: BUMETANIDE 1 MG TABLET PO SCH (08:19)
[2019-08-23] MEDS: LOSARTAN POTASSIUM 50 MG TABLET PO SCH (08:19)
[2019-08-23] MEDS: JUVEN PACKET PO SCH ×2 (08:20→18:43)
[2019-08-23] MEDS: ACETAMINOPHEN 500 MG TAB PO PRN (10:18)
[2019-08-23 10:23] LABS: Absolute Lymphocytes (CBC) 1.6 K/uL (0.7-4.9); Basophils % 0.6 % (0-1.3); Hematocrit 29.1 % (39.6-49.0); Lymphocytes % 16.5 % (15.3-44.8); MPV 7.5 fL (7.6-11.3); RBC Red Blood Cell Count 3.18 M/uL (4.33-5.43)
[2019-08-23] MEDS: ATORVASTATIN 40 MG TAB PO SCH (18:43)
[2019-08-23] MEDS: MELATONIN 3 MG TABLET PO PRN (18:43)
[2019-08-24] MEDS: METOPROLOL XL 50 MG TAB PO SCH (05:10)
[2019-08-24] MEDS: INSULIN -REGULAR HUMAN 50 UNIT/0.5 ML ML SQ SCH ×4 (07:30→20:19)
[2019-08-24] MEDS: LOSARTAN POTASSIUM 50 MG TABLET PO SCH (08:38)
[2019-08-24] MEDS: BUMETANIDE 1 MG TABLET PO SCH (08:38)
[2019-08-24] MEDS: TAMSULOSIN 0.4 MG SR CAP PO SCH (08:39)
[2019-08-24] MEDS: levoFLOXacin 750 MG TAB PO SCH (08:39)
[2019-08-24] MEDS: MEDIHONEY 44 ML TOPICAL TUBE TOP SCH (08:39)
[2019-08-24] MEDS: ASPIRIN EC 81 MG TAB PO SCH (08:39)
[2019-08-24] MEDS: FERROUS SULFATE 325 MG TAB PO SCH (08:39)
[2019-08-24] MEDS: FE SULF/FA/VIT B COMP & C TAB PO SCH (08:39)
[2019-08-24] MEDS: DULOXETINE 20 MG CAP PO SCH (08:39)
[2019-08-24] MEDS: JUVEN PACKET PO SCH ×2 (08:46→20:18)
[2019-08-24] MEDS: TRAMADOL HCL 50 MG TAB PO PRN ×3 (08:49→18:05)
[2019-08-24] MEDS: INSULIN GLARGINE 100 UNITS/ML SQ SCH ×2 (09:06→17:23)
[2019-08-24] MEDS: ACETAMINOPHEN 500 MG TAB PO PRN (10:31)
--- NOTE | 2019-08-24 18:24 | R.PN ---
ENCOUNTER DATE AND TIME: 08/24/2019 18:11 (INSTRUMENT TECH) NAME BERLIN JAMES DATE OF : 1935 DATE OF ADMISSION: 08/18/2019 16:02 (INSTRUMENT TECH) Severe PADCritical Lower Limb IschemiaCHIEF COMPLAINT: Severe Peripheral Arterial disease and right leg gangrene. SUBJECTIVE: Pt denied any depression. Pt denied any Shortness of Breath. Hgb is 10, WBC 9.7, glucose 86 to 129, automation qa analyst 1.05, prealbumin 12.9, chest x-ray showed no acute cardiop ulmonary process and pacemaker is in place. Maximum assistance required to ambulated 3' to 5' in the parallel bars. His right leg ischemia is worsening daily with evidence of proximal progression of his gangrene. He w ill be transferred today to [facility] for possible right above the knee amputation. VITAL SIGNS Temperature: 99.4 F SBP/DBP: 153/62 Pulse: 64 Resp: 16 MEDICATION ALLERGIES: HYDRROCHLOROTHIAZIDE NORCO ENVIRONMENTAL ALLERGIES: Iodine - Substance Allergies None Known - Other Allergies None Known NURSING: - Shower allowing shower ACTIVITIES OOB only with supervision THERAPIES: - Dietary and Nutrition Adequate Nutrition. Nutritional Education. Nutritional Supplements. 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 No abnormalities - Eyes No abnormalities - ENMT No abnormalities - Neck No abnormalities - CVS RRR - Chest Pacemaker wound shows active drainage. - Resp Clear to auscultation - Abd Soft - GI Non distended Deferred - No abnormalities - Ext Mild bilateral lower extremity edema. - MSK 4+/5 weakness in both lower extremities. - Neuro 4/5 strength bilaterally upper and lower extremities. - Psych No abnormalities ASSESSMENT: Pt. is a 83 yo Right-handed white male.On 07/14/[address] [facility] with diagnosis Severe PAD.His impairment category is Medically Complex Conditions 17 - Circulatory Disorders (17.4).Pre-morbidly, Pt. was independent/mod-I in Locomotion, Balance, Social Cognition, Sa fety Awareness, Transfers Control, Sphincter Control, Communication, Self-Care, and Endurance; and he had good Locomotion, Safety Awareness, Balance, Transfers Control, Social Cognition, Sphincter Contr ol, Self-Care, Communication, and Endurance.Currently, he has deficits of Locomotion, Safety Awarenes s, Balance, Transfers Control, Self-Care, and Endurance.Pt. is now referred to [facility] for acute in-patient rehabilitation in order to maximize patient's functional independenc e in activities of daily living, strength, ROM, and mobility.- Rehab Goal Patient has realistic goal of being discharged at assistance level 6-Luis to reside at Home with Fam jojo/Relatives. MDM/PLAN: - Physical Therapy Gait dysfunction - to improve, our physical therapists will perform initial evaluation of pt's statu s upon admission and devise an individualized program for Gait Training, and Wheel Chair mobility Inability to transfer - to improve, our physical therapists will perform initial evaluation of pt's status upon admission and devise an individualized program for Bed mobility Need for home safety evaluation - to improve, our physical therapists will perform initial evaluatio n of pt's status upon admission and devise an individualized program for Home Evaluation Need in caregiver upon discharge - to improve, our physical therapists will perform initial evaluati on of pt's status upon admission and devise an individualized program for Caregiver Training Edema - to improve, our physical therapists will perform initial evaluation of pt's status upon admis melissa and devise an individualized program for Elevation Training, and Lymphedema Therapy New precaution - to improve, our physical therapists will perform initial evaluation of pt's status upon admission and devise an individualized program for Patient precaution education Having wound - to improve, our physical therapists will perform initial evaluation of pt's status upo n admission and devise an individualized program for Wound Care Poor balance - to improve, our physical therapists will perform initial evaluation of pt's status up on admission and devise an individualized program for Balance Training Poor endurance - to improve, our physical therapists will perform initial evaluation of pt's status upon admission and devise an individualized program for Endurance Training Weakness - to improve, our physical therapists will perform initial evaluation of pt's status upon a dmission and devise an individualized program for Aquatic Therapy, Neuromuscular Reeducation, and Str engthening Achieving independence - to improve, our physical therapists will perform initial evaluation of pt's status upon admission and devise an individualized program for Community Reintegration Activities - Occupational Therapy ADL deficits - to improve, our occupation therapists will perform initial evaluation of pt's status upon admission and devise an individualized program for Bathing, Bed mobility, Community Reintegratio n, Cooking, Dressing, Eating, Fine Motor Skills, Grooming, Homemaking, Kitchen Mobility, Laundry, Pat ient Education, Safety Awareness, Splinting - Positioning, Transfers(Toilet, Tub, Shower), and Wheel Chair Management 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, our occupation therapists will perform initial evaluation of pt's status upon admission and devise an individualized program for Caregiver Training Weakness - to improve, our occupation therapists will perform initial evaluation of pt's status upon admission and devise an individualized program for Aquatic Therapy, Balance, Endurance, UE ROM, and UE strengthening - Other See attached MAR (Medication Administration Record) - Diet Type Continue Regular - Diet - Liquid Texture Continue Regular - Tube Feed Continue N/A - Diet - Solid Texture Continue Regular - Shower allowing shower FUNCTIONAL STATUS: UPDATED AT WEEKLY TEAM CONFERENCE - Bladder Same accident frequency: 7-Ind - No accidents in the past 7 days - Bowel Same accident frequency: 7-Ind - No accidents in the past 7 days - Walking Same score based on distance walked: 0(N/A) - Wheelchair Same score based on distance traveled: 0(N/A) FUNCTIONAL STATUS: - Self-Care A. Eating Luis B. Grooming sup C. Bathing maxA D. Dressing - Upper Sheryl E. Dressing - Lower maxA F. Toileting maxA - Sphincter Control G. Bladder control Sheryl H. Bowel control Sheryl - Transfers Control I. Bed/Chair/Wheelchair modA J. Toilet modA K. Tub/Shower modA - Locomotion L. Walk/Wheelchair (B) maxA M. Stairs ADNO - Communication N. Comprehension (B) Sheryl O. Expression (B) Sheryl - Social Cognition P. Social Interaction sup Q. Problem Solving sup R. Memory modA - Endurance Poor - Balance Poor - Safety Awareness Poor QI SCORES: - Self-Care A. Eating 05-Setup or clean-up assistance B. Oral hygiene 05-Setup or clean-up assistance C. Toileting hygiene 03-Partial/moderate assistance E. Shower/bathe self 03-Partial/moderate assistance F. Upper body dressing 04-Supervision or touching assistance G. Lower body dressing 03-Partial/moderate assistance H. Putting on/taking off footwear 02-Substantial/maximal assistance - Mobility A. Roll left and right 03-Partial/moderate assistance B. Sit to lying 03-Partial/moderate assistance C. Lying to sitting on side of bed 03-Partial/moderate assistance D. Sit to stand 03-Partial/moderate assistance E. Chair/kko-lv-vakmg transfer 03-Partial/moderate assistance F. Toilet transfer 03-Partial/moderate assistance G. Car transfer 10-Not attempted due to environmental limitations I. Walk 10 feet 03-Partial/moderate assistance J. Walk 50 feet with two turns 88-Not attempted due to medical condition or safety concerns K. Walk 150 feet 88-Not attempted due to medical condition or safety concerns L. Walking 10 feet on uneven surfaces 88-Not attempted due to medical condition or safety concerns M. 1 step (curb) 88-Not attempted due to medical condition or safety concerns N. 4 steps 88-Not attempted due to medical condition or safety concerns O. 12 steps 88-Not attempted due to medical condition or safety concerns P. Picking up object 88-Not attempted due to medical condition or safety concerns R. Wheel 50 feet with two turns 88-Not attempted due to medical condition or safety concerns S. Wheel 150 feet 88-Not attempted due to medical condition or safety concerns - Bladder and Bowel Bladder continence 0-Always continent Bowel continence 0-Always continent - Endurance Poor - Balance Poor - Safety Awareness Fair CURRENT FUNC. DEFICITS: Self-Care, Mobility, Endurance, Balance, and Safety Awareness SIGNATURE PANEL: (INSTRUMENT TECH)
[2019-08-24 20:17] VITALS: BP 146/66; TEMP 97.9
[2019-08-24] MEDS: ATORVASTATIN 40 MG TAB PO SCH (20:18)
== END 2019-08-24 21:45 | disposition short-term general hospital (02) | DRG 299 ==
LOC: 5TH 16:02
PROVIDERS: ADMIT Psychiatry & Neurology Neurology with Special Qualifications in Child Neurology; ATTEND Psychiatry & Neurology Neurology with Special Qualifications in Child Neurology
DX: I73.9 Peripheral vascular disease, unspecified (principal); A41.9 Sepsis, unspecified organism; E11.52 Type 2 diabetes mellitus with diabetic peripheral angiopathy with gangrene; I99.8 Other disorder of circulatory system; I10 Essential (primary) hypertension; E11.51 Type 2 diabetes mellitus with diabetic peripheral angiopathy without gangrene; I25.10 Atherosclerotic heart disease of native coronary artery without angina pectoris; Z86.73 Personal history of transient ischemic attack (TIA), and cerebral infarction without residual deficits; Z87.898 Personal history of other specified conditions; Z95.5 Presence of coronary angioplasty implant and graft
CPT/HCPCS: 36415; 71045; 80048; 81001; 82040; 82947; 83735; 84134; 85014; 85018; 85025; 86850; 86900; 86901; 87086; 87088; 92523; 93306; 97110; 97112; 97116; 97127; 97161; 97530; 99251; J1815; J7030; P9016

== ENCOUNTER 2022-07-28 13:15 | Inpatient (IN) | payer OTHER ==
--- OUTSIDE RECORDS SUMMARY | 2022-07-28 13:29 | XMS REPORT | Continuity of Care Document ---
:1935 Author Organization [facility] t Address [address] [place] [address] Care Team Providers Name Role Phone DWIGHT DAMIAN Primary Care Physician Unavailable JAKI RICHARD Attending Clinician Unavailable TRE REAGAN Attending Clinician Unavailable KAREEN BECERRA Attending Clinician Unavailable KANU RAUSCH Attending Clinician Unavailable DOMINIQUE HUERTA Attending Clinician Unavailable Dominique Russo Attending Clinician Jaki Richard MD Attending Clinician Jaki Richard MD Attending Clinician James AMAYA, Rosaura N Attending Clinician Unavailable JAKI RICHARD Attending Clinician Unavailable Doctor Unassigned, [place] Attending Clinician Unavailable Marcel Alexis MD Attending Clinician MARCEL ALEXIS Attending Clinician Unavailable Tre Reagan DPM Attending Clinician Yehuda Crockett NP Attending Clinician Only, Adc Test Attending Clinician Unavailable Eron Vasquez MD Attending Clinician ERON VASQUEZ Attending Clinician Unavailable MARIVEL LEA Attending Clinician Unavailable SANJUANITA DARNELL Attending Clinician Unavailable JAKI RICHARD Admitting Clinician Unavailable TRE REAGAN Admitting Clinician Unavailable KAREEN BECERRA Admitting Clinician Unavailable KANU RAUSCH Admitting Clinician Unavailable NIKI NEWSOME Admitting Clinician Unavailable JENNIE GONZALEZ Admitting Clinician Unavailable JAMAICA ENGEL Admitting Clinician Unavailable KORIN, LORRIE Admitting Clinician Unavailable Payers Payer Name Policy Type Policy Number Effective Date Expiration Date Elana hamilton MEDICARE A B [id number] 2000 00:00:00 GENERIC MEDICARE [id number] 2013 SUPPLEMENT 00:00:00 CDC REVIEW [id number] 2020 2020 00:00:00 00:00:00 MEDICARE PART A [id number] 2000 \\T\\ B 00:00:00 JANES [id number] 2014 00:00:00 PPO/EPO/FUNDAMENTA [id number] L/[place] - CIGNA Problems Condition Condition Condition Status Onset Resolution Last Treating Co mments Source Name Details Category Date Date Treatment Clinician Date Peripheral Peripheral Disease Active [facility] artery artery 8-19 [facility] disease 00:[facility]: Medical 00 Center 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-19 [facility] anemia due anemia due 00:00: Me dical to chronic to chronic 00 Ce nter blood loss blood loss Ulcer of Ulcer of Disease [facility] left heel left heel 3-19 [facility] and and 00:00: Medical midfoot, midfoot, 00 Center unspecifie unspecifie d ulcer d ulcer stage stage GIB GIB Disease Active [facility] (gastroint (gastroint 3-06 [facility] estinal estinal 00:00: Medical bleeding) bleeding) 00 Cent er Peripheral Peripheral Disease Active [facility] vascular vascular 3-04 [facility] disease, disease, 00:00: Medica l unspecifie unspecifie 00 Ce nter d d Amputation Amputation Disease Active [facility] right of right 7-13 Colleg e lower lower 00:00: of extremity extremity 00 Medi jose (HCCode) (HCCode) e PAD PAD Disease Active [facility] (periphera (periphera 6-19 [facility] l artery l artery 00:00: Medica l disease) disease) 00 Center Increased Increased Disease Active [facility] BMI (body BMI (body 6-11 [facility] mass mass 00:00: of index) index) 00 Medicin e PAD PAD Disease Active [facility] (periphera (periphera 6-10 Co llege l artery l artery 00:00: of disease) disease) 00 Medici n (HCCode) (HCCode) e Wound of Wound of Disease Active [facility] foot left foot 6-10 [facility] 00:00: of 00 Medicin e Pressure Pressure Disease Active [facility] r injury of injury of 4-15 [facility] skin of skin of 00:00: of left heel left heel 00 Medi jose e Gangrene Gangrene Disease [facility] 00:00: Medical 00 [place] PVD PVD Disease Active [facility] (periphera (periphera 1-22 [facility] l vascular l vascular 00:00: Me dical disease) disease) 00 Center S/P TAVR S/P TAVR Disease Active [facility] (transcath (transcath 1-12 [facility] eter eter 00:00: Medical aortic aortic 00 [place] valve valve replacemen replacemen t) t) Peripheral Peripheral Disease Active 2018-[address] arterial arterial 2-25 [facility] disease disease 00:00: Medical 00 [place] Atrial Atrial Disease Active 2018-[address] fibrillati fibrillati 2-25 [facility] on on 00:00: Medical 00 [place] 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 225 [facility] mellitus mellitus 00:00: Medica l 00 [place] Hypertensi Hypertensi Disease Active 2018-[address] on on 2- [facility] 00:00: Medical 00 [place] Coronary Coronary Disease Active 2018- [facility] artery artery 2-25 [facility] disease disease 00:00: Medical 00 [place] Aortic Aortic Disease Active 2018-[address] stenosis stenosis 2 [facility] 00:00: Medical 00 [place] Critical Critical Disease Active 2019- [facility] lower limb lower limb 2-11 [facility] ischemia ischemia 00:00: Medica l 00 [place] Limb Limb Disease Active 2018-08 [facility] ischemia ischemia 2-11 Colleg e 00:00: of 00 Medicin e Diabetic Diabetic Disease Active 2018-08 [facility] ulcer of ulcer of 2-11 Colleg e toe of toe of 00:00: of right foot right foot 00 Me dicin associated associated e with type with type 2 diabetes 2 diabetes mellitus, mellitus, with with necrosis necrosis of muscle of muscle PVD PVD Disease Active [facility] (periphera (periphera 02-13 l vascular l vascular 00:00: Ho spita disease) disease) 00 l Claudicati Claudicati Disease Active M [facility]i on on 02-13 00:00: Hospita 00 l Essential Essential Disease Active [facility] hypertensi hypertensi 02-13 on on 00:00: Hospita 00 l Osteoarthr Osteoarthr Disease Active M ethodi itis of itis of 02-13 both knees both knees 00:00: Ho spita 00 l 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 02-13 emia emia 00:00: Hospita 00 l No known No known Disease Unive rs active active ity of problems problems [place] [facility] Allergies, Adverse Reactions, Alerts Allergy Allergy Status Severity Reaction(s) Onset Inactive Treating Comm ents Source Name Type Date Date Clinician HYDROCOD DRUG Active Unknown-Cmnt Un wendy ONE INGREDI 02-08 ity of 00:00: [place] 00 Medical Branch TREE DRUG Active Unknown-Cmnt Univ ers POLLEN-W INGREDI 4-15 ity of ALESHA [place] 00:00: [place] 00 Medical Branch Tree Propensi Active Unknown - Unive rs Pollen-W ty to See comments 4-15 it y of alesha [place] adverse 00:00: [place] reaction 00 Medical s Branch Hydrochl Propensi Active [facility] orothiaz ty to 4-15 [place] lillie adverse 00:00: of reaction 00 Medicin s to e drug Iodine Propensi Active [facility] ty to 4-15 College adverse 00:00: of reaction 00 Medicin s to e drug Quercus Propensi Active [facility] Robur ty to 4-15 College ([place] adverse 00:00: of Bark) reaction 00 Medicin s to e drug HYDROCOD DRUG Active Med Unknown-Cmnt 2018-08 Un wendy ONE-ACET 09-29 ity of AMINOPHE 00:00: [place] N 00 Medical Branch HYDROCOD Allergy Active Med Other 2018-08 [facility] ONE-ACET 09-29 AMINOPHE 00:00: N 00 Hydrocod Drug Active Other (See 2018-[address] one-Acet Intolera Comments) 09-29 j luis Oliverio es aminophe nce 00:00: agitation Medic al n 00 Center IODINE Allergy Active Med Rash 2018-08 [facility] AND 09-27 IODIDE 00:00: CONTAINI 00 NG PRODUCTS Iodine Drug Active Rash 2018-[address] [facility] And Allergy 09-27 [facility] Iodide 00:00: Medical Containi 00 Center ng Products HYDROCHL DRUG Active High Unknown-Cmnt 2018-08 Un wendy OROTHIAZ INGREDI 09-15 ity of LILLIE 00:00: [place] 00 Medical Branch HYDROCHL Allergy Active High Other 2018-08 [facility] OROTHIAZ 09-15 LILLIE 00:00: 00 Hydrochl Drug Active Other (See 2018-[address] orothiaz Allergy Comments) 09-15 [facility] lillie 00:00: Medical 00 Center Fluoresc Propensi Active Itching High Metho di ein ty to 05-[address] adverse 00:00: pressure Hospita reaction 00 l s to drug Iodine Propensi Active Itching [facility]i ty to 05-02 st adverse 00:00: Hospita reaction 00 l s to drug Iodine Drug Active Rash 2015-0 Univers And Allergy 05-02 ity of Iodide 00:00: [place] Containi 00 Medical ng Branch Products IODINE Drug Active Med ITCHING 2015- Univers AND Class 05-02 ity of IODIDE 00:00: [place] CONTAINI 00 Medical NG Branch PRODUCTS FLUORESC DRUG Active Hives 2015- Univers EIN INGREDI 05-02 ity of 00:00: [place] 00 Medical Branch Iodine Drug Active Rash 2015- Univers And Allergy 05-02 ity of Iodide 00:00: [place] Containi 00 Medical ng Branch Products FLUORESC Allergy Active Hives 2015- [facility] EIN 05-02 [facility] 00:00: Medical 00 Center Fluoresc Propensi Active Hives, 2016-[address] ein ty to Itching 05-02 blood [facility] adverse 00:00: pressure Medical reaction 00 Center s HYDROCOD Allergy Active [facility] ONE [facility] Center Hydrocod Propensi Active Other [facility] one ty to reaction( [facility] adverse s): Hives Medica l reaction Center s Family History Family Member Diagnosis Comments Start Date Stop Date Source Natural father No Known Problem [facility] Natural mother No Known Problem [facility] Social History Social Habit Start Date Stop Date Quantity Comments Source History of tobacco Current smoker [facility] use [facility] History SDOH [facility] Alcohol Std Drinks Medica l Center History SDOH [facility] Alcohol Binge Medical [address] [facility] Exposure to 2022-05-24 2022-06-03 Not sure [facility]-CoV-2 (event) 00:00:00 14:34:00 [facility] History SDOH 2019-09-09 2019-09-[address] [facility] Alcohol Frequency 00:00:00 00:00:00 Medical Center Tobacco use and 2019-07-14 2019-07-[address] [facility] exposure 00:00:00 00:00:00 [facility] Alcohol intake 2017-03-18 2017-03-18 Current drinker Metho dist 00:00:00 00:00:00 of [facility] (finding) Alcohol Comment 2017-02-25 2017-02-25 rare- beer and Metho dist 00:00:00 00:00:00 [facility] Cigarettes smoked 2016-05-02 2016-05-[address] current (pack per 00:00:00 00:00:00 [facility] day) - Reported Cigarette 2016-05-02 2016-05-02 [facility] pack-years 00:00:00 00:00:00 Hospital Sex Assigned At [birth year] [facility] 00:00:00 00:00:00 Hospital Smoking Status Start Date Stop Date Source Never smoked tobacco [facility] Former smoker 2019-07-14 00:00:00 2019-07-14 00:00:[address] [facility] Medications Ordered Filled Start Stop Current Ordering Indication Dosage Frequency Signature Comments Components Source Medication Medication Date Date Medication? Clinician (SIG) Name Name valsartan Yes 320mg QD Take [address] (DIOVAN) 8-19 mg by [facility]ukes 320 MG 20:20: mouth Medical tablet 58 daily. Center traMADoL Yes 50mg Take [address] (ULTRAM) 50 8-19 by mouth Luke s mg tablet 20:20: every 6 Medic al 58 (six) Center hours as needed for Pain. ascorbic Yes 500mg QD Take [address] acid, 8-19 mg by [facility]ukes vitamin C, 20:20: mouth Medica l (ASCORBIC 58 daily. Center ACID WITH WAGNER HIPS) 500 MG tablet insulin Yes 34U QD Inject 34 [facility] glargine 8-19 Units [facility]ukes (LANTUS, 20:20: subcutaneo Med ical SEMGLEE) 58 usly Center 100 unit/mL nightly. injection cholecalcif Yes Take by [facility] jesse, 8-19 mouth [facility]ukes vitamin D3, 20:20: Don't know Medical 50 mcg 58 strength . Center (2,000 unit) Cap triamcinolo 2021- No [id number] 40mg [facility] 03-07 9100 ity of acetonide 17:15: 16:13 [place] (KENALOG) 00 :00 Medical injection Branch 40 mg triamcinolo 2021- No [id number] 40mg 40 mg, [facility] 03-07 9100 Intra-carlos ity of acetonide 17:15: 16:13 [place], [place] (KENALOG) 00 :00 ONCE, 1 Medical injection dose, On Branch 40 mg Jolynn 03/07/22 at 1215, Routine senna-docus Yes 1{tbl} Take 1 Tab [facility] ate 03-06 by mouth [place] (PERICOLACE 13:47: daily. of ) 8.6-50 MG 38 Medicin per tablet e senna-docus Yes 1{tbl} Take 1 Tab [facility] ate 03 by mouth [place] (PERICOLACE 13:47: daily. of ) 8.6-50 MG 38 Medicin per tablet e clopidogreL 2020-08 Yes 75mg Take 75 mg Univers 75 mg 08-04 by mouth. ity of tablet 15:29: [address] aspirin 81 2020-08 Yes 81mg Take 81 mg U nivers mg EC 08-04 by mouth. ity of tablet 15:29: [address] clopidogreL 2020-08 Yes 75mg Take 75 mg Univers 75 mg 08-04 by mouth. ity of tablet 15:29: [address] aspirin 81 2020-08 Yes 81mg Take 81 mg U nivers mg EC 08-04 by mouth. ity of tablet 15:29: [address] clopidogreL 2020-08 Yes 75mg Take 75 mg Univers 75 mg 08-04 by mouth. ity of tablet 15:29: [address] aspirin 81 2020-08 Yes 81mg Take 81 mg U nivers mg EC 08-04 by mouth. ity of tablet 15:29: [address] LANTUS 2020-08 Yes Univers SOLOSTAR 0-14 ity of U-100 00:00: [place] INSULIN 100 00 Medical unit/mL (3 Branch mL) injection LANTUS 2020-08 Yes Univers SOLOSTAR 0-14 ity of U-100 00:00: [place] INSULIN 100 00 Medical unit/mL (3 Branch mL) injection LANTUS 2020-08 Yes Univers SOLOSTAR 0-14 ity of U-100 00:00: [place] INSULIN 100 00 Medical unit/mL (3 Branch mL) injection valsartan 2020-08 Yes Univers 320 mg 0-05 ity of tablet 00:00: [address] valsartan 2020-08 Yes Univers 320 mg 0-05 ity of tablet 00:00: [address] valsartan 2020-08 Yes Univers 320 mg 0-05 ity of tablet 00:00: [address] cyclobenzap Yes 2.5mg Take 2.5 U nivers rine 5 mg 7-08 mg by ity of tablet 00:00: mouth. [address] cyclobenzap Yes 2.5mg Take 2.5 U nivers rine 5 mg 7-08 mg by ity of tablet 00:00: mouth. [address] cyclobenzap Yes 2.5mg Take 2.5 U nivers rine 5 mg 7-08 mg by ity of tablet 00:00: mouth. [address] senna-docus Yes 1{tbl} Take 1 Tab [facility] ate 6-09 by mouth College (SENNA-PLUS 13:24: daily. of ) 8.6-50 MG 13 Medicin per tablet e senna-docus Yes 1{tbl} Take 1 Tab [facility] ate 3-24 by mouth [place] (SENNA-PLUS 18:04: daily. of ) 8.6-50 MG 29 Medicin per tablet e senna-docus Yes 1{tbl} Take 1 Tab [facility] ate 3-24 by mouth [place] (SENNA-PLUS 18:04: daily. of ) 8.6-50 MG 29 Medicin per tablet e honey 100 % Yes 1{appli QD Apply [address] Pste 3-20 cation} applicatio Merry 00:00: n Medical 00 topically Center daily. multivitami 2021- No 1{tbl} QD Take [address] n 3-20 03-20 tablet by [facility] (THERAGRAN) 00:00: 23:59 mouth Medi marta tablet 00 :00 daily. Center senna-docus Yes 1{tbl} Take 1 Tab [facility] ate 9-23 by [facility] (SENNA-PLUS 18:21: daily. of ) 8.6-50 MG 09 Medicin per tablet e tramadol 2019-0 Yes TAKE 1 [facility] (ULTRAM) 50 8-04 TABLET BY Col lege MG tablet 00:00: MOUTH of 00 EVERY 6 TO Medicin 8 HOURS e NEEDED FOR PAIN tramadol 2020-0 Yes TAKE 1 [facility] (ULTRAM) 50 8-04 TABLET BY Col lege MG tablet 00:00: MOUTH of 00 EVERY 6 TO Medicin 8 HOURS e NEEDED FOR PAIN tramadol 2020-0 Yes TAKE 1 [facility] (ULTRAM) 50 8-04 TABLET BY Col lege MG tablet 00:00: MOUTH of 00 EVERY 6 TO Medicin 8 HOURS e NEEDED FOR PAIN tramadol 2020-0 Yes TAKE 1 [facility] (ULTRAM) 50 8-04 TABLET BY Col lege MG tablet 00:00: MOUTH of 00 EVERY 6 TO Medicin 8 HOURS e NEEDED FOR PAIN tramadol 2020-0 Yes TAKE 1 [facility] (ULTRAM) 50 8-04 TABLET BY Col lege MG tablet 00:00: MOUTH of 00 EVERY 6 TO Medicin 8 HOURS e NEEDED FOR PAIN tramadol 2020-0 Yes TAKE 1 [facility] (ULTRAM) 50 8-04 TABLET BY Col lege MG tablet 00:00: MOUTH of 00 EVERY 6 TO Medicin 8 HOURS e NEEDED FOR PAIN mupirocin 2020-0 Yes Apply to [facility] (BACTROBAN) 7-13 affected [facility] 2 % 00:00: area daily of ointment 00 Medicin e amoxicillin 2020-0 Yes 1{tbl} Take 1 Tab [facility] -clavulanat 7-13 by mouth [facility] e 00:00: two times of (AUGMENTIN) 00 daily. Medici n 500-125 MG e per tablet mupirocin 2020-0 Yes Apply to [facility] (BACTROBAN) 713 affected [facility] 2 % 00:00: area daily of ointment 00 Medicin e amoxicillin 2020-0 Yes 1{tbl} Take 1 Tab [facility] -clavulanat 7-13 by mouth [facility] e 00:00: two times of (AUGMENTIN) 00 daily. Medici n 500-125 MG e per tablet mupirocin 2020-0 Yes Apply to [facility] (BACTROBAN) 713 affected [facility] 2 % 00:00: area daily of ointment 00 Medicin e amoxicillin 2020-0 Yes 1{tbl} Take 1 Tab [facility] -clavulanat 7-13 by mouth [facility] e 00:00: two times of (AUGMENTIN) 00 daily. Medici n 500-125 MG e per tablet mupirocin 2020-0 2020- No Apply to [place] tim (BACTROBAN) 7-01-10 affected Col lege 2 % 00:00: 00:00 area daily of ointment 00 :00 Medicin e amoxicillin 2020-0 2020- No 1{tbl} Take 1 Tab [facility] -clavulanat -13 01-10 by mouth Col lege e 00:00: 00:00 two times of (AUGMENTIN) 00 :00 daily. Medici n 500-125 MG e per tablet clopidogrel 2020-0 Yes 75mg Take 1 Tab [facility] (PLAVIX) 75 6-23 by mouth [facility] MG Tablet 00:00: daily. of 00 Medicin e clopidogrel 2020-0 Yes 75mg Take 1 Tab [facility] (PLAVIX) 75 6-23 by mouth [facility] MG Tablet 00:00: daily. of 00 Medicin e clopidogrel 2020-0 Yes 75mg Take 1 Tab [facility] (PLAVIX) 75 6-23 by mouth [facility] MG Tablet 00:00: daily. of 00 Medicin e clopidogrel 2020-0 2020- No 75mg Take 1 Tab [facility] (PLAVIX) 75 6-23 06-09 by mouth Col lege MG Tablet 00:00: 00:00 daily. of 00 :00 Medicin e lorazepam 2019-0 Yes TAKE 1 [facility] (ATIVAN) 4-10 TABLET BY Colleg e 0.5 MG 00:00: MOUTH ONCE of tablet 00 DAILY Medicin e lorazepam 2019-0 Yes TAKE 1 [facility] (ATIVAN) 4-10 TABLET BY Colleg e 0.5 MG 00:00: MOUTH ONCE of tablet 00 DAILY Medicin e lorazepam 2019-0 Yes TAKE 1 [facility] (ATIVAN) 4-10 TABLET BY Colleg e 0.5 MG 00:00: MOUTH ONCE of tablet 00 DAILY Medicin e lorazepam 2019-0 Yes TAKE 1 [facility] (ATIVAN) 4-10 TABLET BY Colleg e 0.5 MG 00:00: MOUTH ONCE of tablet 00 DAILY Medicin e lorazepam 2019-0 Yes TAKE 1 [facility] (ATIVAN) 4-10 TABLET BY Colleg e 0.5 MG 00:00: MOUTH ONCE of tablet 00 DAILY Medicin e lorazepam 2019-0 Yes TAKE 1 [facility] (ATIVAN) 4-10 TABLET BY Colleg e 0.5 MG 00:00: MOUTH ONCE of tablet 00 DAILY Medicin e bumetanide 2019-0 Yes [facility] (BUMEX) 1 3-16 College MG tablet 00:00: of 00 Medicin e bumetanide 2020-0 Yes [facility] (BUMEX) 1 3-16 College MG tablet 00:00: of 00 Medicin e bumetanide 2020-0 Yes [facility] (BUMEX) 1 3-16 College MG tablet 00:00: of 00 Medicin e bumetanide 2020-0 Yes [facility] (BUMEX) 1 3-16 College MG tablet 00:00: of 00 Medicin e bumetanide 2020-0 Yes [facility] (BUMEX) 1 3-16 College MG tablet 00:00: of 00 Medicin e bumetanide 2020-0 Yes [facility] (BUMEX) 1 3-16 College MG tablet 00:00: of 00 Medicin e duloxetine 2019-0 Yes 30mg Take 30 mg [facility] (CYMBALTA) 2-12 by mouth. [facility] 30 MG 00:00: of capsule 00 Medicin e quetiapine 2020-0 Yes 12.5mg Take 12.5 [facility] (SEROQUEL) 2-12 mg by College 25 MG 00:00: mouth. of tablet 00 Medicin e duloxetine 2020-0 Yes 30mg Take 30 mg [facility] (CYMBALTA) 2-12 by mouth. [facility] 30 MG 00:00: of capsule 00 Medicin e quetiapine 2020-0 Yes 12.5mg Take 12.5 [facility] (SEROQUEL) 2-12 mg by College 25 MG 00:00: mouth. of tablet 00 Medicin e duloxetine 2020-0 Yes 30mg Take 30 mg [facility] (CYMBALTA) 2-12 by mouth. [facility] 30 MG 00:00: of capsule 00 Medicin e quetiapine 2020-0 Yes 12.5mg Take 12.5 [facility] (SEROQUEL) 2-12 mg by College 25 MG 00:00: mouth. of tablet 00 Medicin e duloxetine 2020-0 Yes 30mg Take 30 mg [facility] (CYMBALTA) 2-12 by mouth. [facility] 30 MG 00:00: of capsule 00 Medicin e quetiapine 2020-0 Yes 12.5mg Take 12.5 [facility] (SEROQUEL) 2-12 mg by College 25 MG 00:00: mouth. of tablet 00 Medicin e duloxetine 2020-0 Yes 30mg Take 30 mg [facility] (CYMBALTA) 2-12 by mouth. [facility] 30 MG 00:00: of capsule 00 Medicin e quetiapine 2020-0 Yes 12.5mg Take 12.5 [facility] (SEROQUEL) 2-12 mg by College 25 MG 00:00: mouth. of tablet 00 Medicin e duloxetine 2020-0 Yes 30mg Take 30 mg [facility] (CYMBALTA) 2-12 by mouth. [facility] 30 MG 00:00: of capsule 00 Medicin e quetiapine 2020-0 Yes 12.5mg Take 12.5 [facility] (SEROQUEL) 2-12 mg by College 25 MG 00:00: mouth. of tablet 00 Medicin e senna-docus 2020-0 Yes 2{tbl} Q.5D Take [address] ate 2-12 tablets by [facility] (SENNOSIDES 00:00: mouth 2 Med ical -DOCUSATE 00 (two) Center SODIUM) times 8.6-50 mg daily. per tablet QUEtiapine 2020-0 Yes 12.5mg Take 0.[address] (SEROQUEL) 2-12 tablets [facility] 25 MG 00:00: (12.5 mg Medical tablet 00 total) by Center mouth daily as needed (for behavior disturbanc es in [facility]). acetaminoph 2020-0 Yes 650mg Take [address] en 2-12 tablets [facility] (TYLENOL) 00:00: (650 mg Medic al 325 MG 00 total) by Center tablet mouth every 6 (six) hours as needed for Pain. insulin 2021- No 8U Inject 8 [facility] glargine 2-12 08-19 Units [facility] (LANTUS) 00:00: 00:00 subcutaneo Me dical 100 unit/mL 00 :00 usly 2 Center injection (two) times daily with breakfast and dinner Use as directed . losartan 2020- No DAILY [facility] (COZAAR) 50 1-21 06-09 College MG tablet 00:00: 00:00 of 00 :00 Medicin e Tamsulosin 2020-0 Yes [facility] HCl 0.4 MG 1-14 College CAPS 00:00: of 00 Medicin e Tamsulosin 2020-0 Yes [facility] HCl 0.4 MG 1-14 College CAPS 00:00: of 00 Medicin e Tamsulosin 2020-0 Yes [facility] HCl 0.4 MG 1-14 College CAPS 00:00: of 00 Medicin e Tamsulosin 2020-0 Yes [facility] HCl 0.4 MG 1-14 College CAPS 00:00: of 00 Medicin e Tamsulosin 2020-0 Yes [facility] HCl 0.4 MG 1-14 College CAPS 00:00: of 00 Medicin e Tamsulosin 2020-0 Yes [facility] HCl 0.4 MG 1-14 College CAPS 00:00: of 00 Medicin e tamsulosin 2020-0 Yes .8mg QD Take 2 [facility] (FLOMAX) 1-14 capsules [facility] 0.4 mg Cap 00:00: (0.8 mg Medi marta 24 hr 00 total) by Center capsule mouth daily. LANTUS 2018-08 Yes [facility] 1-27 [place] 100 UNIT/ML 00:00: of SOPN 00 Medicin e LANTUS 2018-08 Yes [facility] 1-27 [place] 100 UNIT/ML 00:00: of SOPN 00 Medicin e LANTUS 2018-08 Yes [facility] 1-27 [place] 100 UNIT/ML 00:00: of SOPN 00 Medicin e LANTUS 2018-08 Yes [facility] 1-27 [place] 100 UNIT/ML 00:00: of SOPN 00 Medicin e LANTUS 2018-08 Yes [facility] 1-27 [place] 100 UNIT/ML 00:00: of SOPN 00 Medicin e LANTUS 2018-08 Yes [facility] 1-27 [place] 100 UNIT/ML 00:00: of SOPN 00 Medicin e valsartan 2018-08 Yes [facility] (DIOVAN) 0-23 College 320 MG 00:00: of tablet 00 Medicin e valsartan 2018-08 Yes [facility] (DIOVAN) 0-23 College 320 MG 00:00: of tablet 00 Medicin e valsartan 2018-08 Yes [facility] (DIOVAN) 0-23 College 320 MG 00:00: of tablet 00 Medicin e valsartan 2018-08 Yes [facility] (DIOVAN) 0-23 College 320 MG 00:00: of tablet 00 Medicin e valsartan 2018-08 Yes [facility] (DIOVAN) 0-23 College 320 MG 00:00: of tablet 00 Medicin e valsartan 2018-08 Yes [facility] (DIOVAN) 0-23 College 320 MG 00:00: of tablet 00 Medicin e clopidogrel Yes 75mg QD Take 75 mg [facility] (PLAVIX) 75 8-[address] mg tablet 13:09: daily. Hospit a 13 l aspirin Yes 81mg QD Take 81 mg Meth renee (ECOTRIN) 8-[address] 81 MG 13:09: daily. Hospita enteric 13 l coated tablet valsartan Yes 320mg QD Take 320 [facility] (DIOVAN) 8-[address] 320 MG 13:09: mouth Hospita tablet 13 daily. l insulin Yes 36U QD Inject 36 Meth[facility] di GLARGINE 8-[address] (LANTUS) 13:09: under the Hosp mitul 100 unit/mL 13 skin l injection daily. Vital Signs Vital Name Observation Time Observation Value Comments Source HEIGHT 2020-10-05 10:53:00 180.3 cm WEIGHT 2020-10-05 10:53:00 86.183 kg HEIGHT 2020-03-09 00:00:00 180.3 cm HEIGHT 2020-01-12 00:00:00 180.3 cm WEIGHT 2020-01-12 00:00:00 77.111 kg HEIGHT 2020-10-07 07:29:00 180.3 cm WEIGHT 2020-10-07 07:29:00 91.536 kg Systolic blood 2022-04-03 19:54:00 184 mm[Hg] [facility] pressure Medicine Diastolic blood 2022-04-03 19:54:00 81 mm[Hg] [facility] pressure Medicine Heart rate 2022-04-03 19:54:00 86 /min [facility] Body height 2022-04-03 19:54:00 180.3 cm [facility] Body weight 2022-04-03 19:54:00 108.863 kg [facility] BMI 2022-04-03 19:54:00 33.47 kg/m2 [facility] HEIGHT 2022-03-22 12:17:00 180.3 cm HEIGHT 2022-03-22 12:17:00 180.3 cm HEIGHT 2022-03-22 12:17:00 180.3 cm Systolic blood 2022-03-06 18:45:00 146 mm[Hg] [facility] pressure Medicine Diastolic blood 2022-03-06 18:45:00 83 mm[Hg] [facility] Medicine Heart rate 2022-03-06 18:45:00 62 /min [facility] Body height 2022-03-06 18:45:00 180.3 cm [facility] Body weight 2022-03-06 18:45:00 108.863 kg [facility] BMI 2022-03-06 18:45:00 33.47 kg/m2 [facility] Systolic blood 2022-03-04 18:22:00 144 mm[Hg] Univer sity of pressure [facility] Diastolic blood 2022-03-04 18:22:00 81 mm[Hg] Unive rsity of pressure [facility] Heart rate 2022-03-04 18:22:00 77 /min Universi ty of [facility] Body weight 2022-03-04 18:22:00 104.327 kg Universi [facility] BMI 2022-03-04 18:22:00 32.08 kg/m2 [facility] Oxygen saturation in 2022-03-04 18:22:00 97 /min [facility] Arterial blood by [facility] Pulse oximetry Branch Systolic blood 2021-01-10 18:23:00 170 mm[Hg] [facility] of pressure Medicine Diastolic blood 2021-01-10 18:23:00 79 mm[Hg] [facility] of pressure Medicine Heart rate 2021-01-10 18:23:00 83 /min [facility] ollege of Medicine Body height 2021-01-10 18:23:00 180.3 cm [facility] ol[facility] of Medicine Body weight 2021-01-10 18:23:00 90.719 kg [facility] of Medicine BMI 2021-01-10 18:23:00 27.89 kg/m2 [facility] Body height 2020-10-25 18:03:00 180.3 cm [facility] Systolic blood 2020-10-25 18:03:00 159 mm[Hg] [facility] pressure Medicine Diastolic blood 2020-10-25 18:03:00 79 mm[Hg] [facility] pressure Medicine Heart rate 2020-10-25 18:03:00 80 /min [facility] Systolic blood 2020-10-25 15:57:00 159 mm[Hg] [facility] of pressure Medicine Diastolic blood 2020-10-25 15:57:00 79 mm[Hg] [facility] of pressure Medicine Heart rate 2020-10-25 15:57:00 80 /min [facility] Body height 2020-10-25 15:57:00 180.3 cm [facility] ol[facility] of Medicine Body weight 2020-10-25 15:57:00 83.915 kg [facility] of Medicine BMI 2020-10-25 15:57:00 25.80 kg/m2 [facility] ol[facility] of Medicine HEIGHT 2020-10-07 07:29:00 180.3 cm WEIGHT 2020-10-07 07:29:00 91.536 kg HEIGHT 2020-10-05 10:53:00 180.3 cm WEIGHT 2020-10-05 10:53:00 86.183 kg HEIGHT 2020-10-03 12:50:00 180.3 cm WEIGHT 2020-10-03 12:50:00 86.183 kg HEIGHT 2020-10-03 12:50:00 180.3 cm WEIGHT 2020-10-03 12:50:00 86.183 kg Systolic blood 2020-09-29 20:11:00 176 mm[Hg] [facility] pressure Medicine Diastolic blood 2020-09-29 20:11:00 94 mm[Hg] [facility] Medicine Heart rate 2020-09-29 20:11:00 81 /min [facility] ol[facility] of Medicine Body height 2020-09-29 20:11:00 180.3 cm [facility] ol[facility] of Medicine Body weight 2020-09-29 20:11:00 83.915 [facility] BMI 2020-09-29 20:11:00 25.80 kg/m2 [facility] ol[facility] of Medicine HEIGHT 2020-03-16 00:00:00 180.3 cm HEIGHT 2020-03-16 00:00:00 180.3 cm HEIGHT 2020-01-12 00:00:00 180.3 cm WEIGHT 2020-01-12 00:00:00 77.111 kg Systolic blood 2022-03-22 20:00:00 148 mm[Hg] [facility] Diastolic blood 2022-03-22 20:00:00 77 mm[Hg] [facility] Heart rate 2022-03-22 20:00:00 101 /min [facility] Respiratory rate 2022-03-22 19:30:00 19 /min [facility] Oxygen saturation in 2022-03-22 18:45:00 96 /min [facility] Arterial blood by Medical Ce nter Pulse oximetry Body temperature 2022-03-22 12:17:00 36.56 Belne [facility] Body height 2022-03-22 12:17:00 180.3 cm [facility] Procedures Procedure Date / Time Performed Performing Clinician Sour e POCT-GLUCOSE METER 2022-03-22 18:23:00 [facility] PO[facility]UCOSE METER 2022-03-22 18:04:00 Jaki Richard [facility] ANGIOGRAM, LOWER 2022-03-22 15:25:00 Jaki Richard [facility] EXTREMITY [facility] ECG 12-LEAD 2022-03-22 13:50:03 Richard [facility] ECG 12-LEAD 2022-03-22 13:50:03 Unknown, Hl7 Doctor [facility] BASIC METABOLIC PANEL 2022-03-22 13:04:00 Pau Roberts [facility] CBC W/PLT COUNT & AUTO 2022-03-22 13:04:00 Pau Roberts [facility] DIFFERENTIAL [facility] TYPE AND SCREEN, 2022-03-22 13:04:00 Pau Roberts [facility] AUTOMATED [facility] CBC W/PLT COUNT & AUTO 2022-03-22 13:04:00 Pau Roberts [facility] DIFFERENTIAL [facility] CBC W/AUTO DIFF WITH 2022-03-22 13:04:00 [facility] PLATELETS Medicine BASIC METABOLIC PANEL 2022-03-22 13:04:00 [facility] CARDIAC CATH REPORT - 2022-03-22 00:00:00 Provider, Default [facility] SCAN Scanning [facility] CBC W/AUTO DIFF WITH 2022-03-06 16:20:01 [facility] PLATELETS Medicine BASIC METABOLIC PANEL 2022-03-06 16:20:01 [facility] Plan of Care Planned Activity Planned Date Details Comments Source Future Scheduled 2023-03-22 Tobacco Cessation [facility] Test 00:00:00 [facility] Scre[facility] (12+) [code = Tobacco Cessation Counseling and Screening (12+)] Future Scheduled 2022-07-19 COVID-[address] Test 02:19:49 (#1) [code = Hospital COVID-19 VACCINE (#1)] Future Scheduled 2022-07-19 SHINGLES VACCINES Method ist Test 02:19:49 (1 of 2) [code = Hospital SHINGLES VACCINES (1 of 2)] Future Scheduled 2022-07-19 65+ PNEUMOCOCCAL [facility] Test 02:19:49 VACCINE (1 - PCV) Hospital [code = 65+ PNEUMOCOCCAL VACCINE (1 - PCV)] Future Scheduled 2022-07-19 INFLUENZA VACCINE Method ist Test 02:19:49 [code = INFLUENZA Hospital VACCINE] Future Scheduled 2022-04-09 COVID-19 Vaccine [facility] Test 10:38:43 (#1) [code = of Medicine COVID-19 Vaccine (#1)] Future Scheduled 2022-04-09 Pneumococcal 65+ (1 [employer] Test 10:38:43 - PCV) [code = of Medicine Pneumococcal 65+ (1 - PCV)] Future Scheduled 2022-04-09 TETANUS SHOT [facility] Test 10:38:43 (ADULT) [code = of Medicine TETANUS SHOT (ADULT)] Future Scheduled 2022-04-09 Diabetic foot [facility] Test 10:38:43 examination of Medicine (regime/therapy) [code = 024573610] Future Scheduled 2022-04-09 ANNUAL DIABETIC [facility] Test 10:38:43 RETINOPATHY of Medicine SCREENING [code = ANNUAL DIABETIC RETINOPATHY SCREENING] Future Scheduled 2022-04-09 ZOSTER VACCINE (1 [facility] Test 10:38:43 of 2) [code = of Medicine ZOSTER VACCINE (1 of 2)] Future Scheduled 2022-04-09 MEDICARE AWV [facility] Test 10:38:43 (Initial) [code = of Medicin e MEDICARE AWV (Initial)] Future Scheduled 2022-04-09 BMI FOLLOW UP PLAN [facility] Test 10:38:43 [code = BMI FOLLOW of Medici ne UP PLAN] Future Scheduled 2022-04-09 FLU VACCINE > 6 [facility] Test 10:38:43 MONTHS [code = FLU of Medici ne VACCINE > 6 MONTHS] Future Scheduled 2022-04-09 FALL SCREEN [code = [employer] Test 10:38:43 FALL SCREEN] of Medicine Future Scheduled 2022-04-[address] [facility] Test 00:00:00 (#1) [code = Medical Center INFLUENZA VACCINE (#1)] Future Scheduled 2022-04-03 US ARTERIAL LEG 1 Occurrences [facility] Test 14:54:23 LEFT [code = 17365] starting of Medic ine 04/03/2022 until 04/03/2023 Future Scheduled 2022-03-07 COVID-19 Vaccine [facility] Test 11:47:00 (#1) [code = of Medicine COVID-19 Vaccine (#1)] Future Scheduled 2022-03-07 Pneumococcal 65+ (1 [employer] Test 11:47:00 - PCV) [code = of Medicine Pneumococcal 65+ (1 - PCV)] Future Scheduled 2022-03-07 TETANUS SHOT [facility] Test 11:47:00 (ADULT) [code = of Medicine TETANUS SHOT (ADULT)] Future Scheduled 2022-03-07 Diabetic foot [facility] Test 11:47:00 examination of Medicine (regime/therapy) [code = 012340177] Future Scheduled 2022-03-07 ANNUAL DIABETIC [facility] Test 11:47:00 RETINOPATHY of Medicine SCREENING [code = ANNUAL DIABETIC RETINOPATHY SCREENING] Future Scheduled 2022-03-07 ZOSTER VACCINE (1 [facility] Test 11:47:00 of 2) [code = of Medicine ZOSTER VACCINE (1 of 2)] Future Scheduled 2022-03-07 MEDICARE AWV [facility] Test 11:47:00 (Initial) [code = of Medicin e MEDICARE AWV (Initial)] Future Scheduled 2022-03-07 BMI FOLLOW UP PLAN [facility] Test 11:47:00 [code = BMI FOLLOW of Medici ne UP PLAN] Future Scheduled 2022-03-07 FLU VACCINE > 6 [facility] Test 11:47:00 MONTHS [code = FLU of Medici ne VACCINE > 6 MONTHS] Future Scheduled 2022-03-07 FALL SCREEN [code = [employer] Test 11:47:00 FALL SCREEN] of Medicine Future Scheduled 2022-03-06 NOVEL 2019 1 Occurrences [facility] Test 16:28:05 CORONAVIRUS(COVID-1 starting of Medic ine 9),INOCENCIO [code = 03/06/2022 until U0004] 09/06/2022 Future Scheduled 2022-03-06 CBC W/AUTO DIFF Ordered: [facility] Test 16:20:01 WITH PLATELETS 03/06/2022 of Medicine [code = 68086-9] Future Scheduled 2022-03-06 BASIC METABOLIC Ordered: [facility] Test 16:20:01 PANEL [code = 03/06/2022 of Medicine 05110-9] Future Scheduled 2021-08-[address] [facility] Test 00:00:00 SCREENING [code = Medical Ce nter FALLS RISK SCREENING] Future Scheduled 2021-04-[address] [facility] Test 00:00[facility]00 [facility] (procedure) [code = 23894237] Future Scheduled 2021-01-12 COVID-19 Vaccine [facility] Test 13:09:51 (1) [code = of Medicine COVID-19 Vaccine (1)] Future Scheduled 2021-01-12 TETANUS SHOT [facility] Test 13:09:51 (ADULT) [code = of Medicine TETANUS SHOT (ADULT)] Future Scheduled 2021-01-12 Diabetic foot [facility] Test 13:09:51 examination of Medicine (regime/therapy) [code = 831512042] Future Scheduled 2021-01-12 ANNUAL DIABETIC [facility] Test 13:09:51 RETINOPATHY of Medicine SCREENING [code = ANNUAL DIABETIC RETINOPATHY SCREENING] Future Scheduled 2021-01-12 ZOSTER VACCINE (1 [facility] Test 13:09:51 of 2) [code = of Medicine ZOSTER VACCINE (1 of 2)] Future Scheduled 2021-01-12 MEDICARE AWV [facility] Test 13:09:51 (Initial) [code = of Medicin e MEDICARE AWV (Initial)] Future Scheduled 2021-01-12 FALL SCREEN [code = [facility] Test 13:09:51 FALL SCREEN] of Medicine Future Scheduled 2021-01-12 PNEUMOVAX >=65 [facility] Test 13:09:51 (PPSV23) [code = of Medicine PNEUMOVAX >=65 (PPSV23)] Future Scheduled 2021-01-12 BMI FOLLOW UP PLAN [facility] Test 13:09:51 [code = BMI FOLLOW of Medici ne UP PLAN] Future Scheduled 2021-01-12 FLU VACCINE > 6 [facility] Test 13:09:51 MONTHS [code = FLU of Medici ne VACCINE > 6 MONTHS] Future Scheduled 2021-01-10 US ARTERIAL LEG 1 Occurrences [facility] Test 13:49:38 LEFT [code = 11738] starting of Medic ine 01/10/2021 until 01/10/2022 Future Scheduled 2001-09-[address] [facility] [facility] Test 00:00:00 WELLNESS (YEAR 2 or Medical Center FIRST YEAR if no IPPE) [code = MEDICARE ANNUAL WELLNESS (YEAR 2 or FIRST YEAR if no IPPE)] Future Scheduled [address] [facility] Test 00:00:00 (1 of 2) [code = Medical [facility] SHINGLES VACCINES (1 of 2)] Future Scheduled 1954 DTAP/TDAP/TD [facility] Test 00:00:00 VACCINES (1 - Tdap) Medical Center [code = DTAP/TDAP/TD VACCINES (1 - Tdap)] Future Scheduled [address] DIABETIC EYE EXAM [facility] Test 00:00:00 [code = DIABETIC Medical [facility] EYE EXAM] Future Scheduled [address] [facility] Test 00:[facility]:00 examination Medical Center (regime/therapy) [code = 465705884] Future Scheduled 1945 Urine screening for [facility] Test 00:00:00 protein (procedure) Medical Center [code = 607007148] Future Scheduled 1941 PNEUMOCOCCAL [address]+ [facility] Test 00:00:00 YRS (1 - PCV) [code Medical Center = PNEUMOCOCCAL 65+ YRS (1 - PCV)] Future Scheduled 1936-03-21 COVID-[address] [facility] Test 00:00:00 (#1) [code = Medical Center COVID-19 VACCINE (#1)] Future Scheduled TETANUS SHOT [facility] Test (ADULT) [code = of Medicine TETANUS SHOT (ADULT)] Future Scheduled COVID-19 Vaccine [facility] Test (1) [code = of Medicine COVID-19 Vaccine (1)] Future Scheduled Diabetic foot [facility] Test examination of Medicine (regime/therapy) [code = 176451287] Future Scheduled ANNUAL DIABETIC [facility] Test RETINOPATHY of Medicine SCREENING [code = ANNUAL DIABETIC RETINOPATHY SCREENING] Future Scheduled ZOSTER VACCINE (1 [facility] Test of 2) [code = of Medicine ZOSTER VACCINE (1 of 2)] Future Scheduled MEDICARE AWV [facility] Test (Initial) [code = of Medicin e MEDICARE AWV (Initial)] Future Scheduled FALL SCREEN [code = [employer] [facility] FALL SCREEN] of Medicine Future Scheduled PNEUMOVAX >=65 [facility] Test (PPSV23) [code = of Medicine PNEUMOVAX >=65 (PPSV23)] Future Scheduled FLU VACCINE > 6 [facility] Test MONTHS [code = FLU of Medici ne VACCINE > 6 MONTHS] Future Scheduled BMI FOLLOW UP PLAN [employer] Test [code = BMI FOLLOW of Medici ne UP PLAN] Future Scheduled COVID-19 Vaccine [facility] Test Evaluation [code = of Medici ne COVID-19 Vaccine Evaluation] Future Scheduled TETANUS SHOT [facility] Test (ADULT) [code = of Medicine TETANUS SHOT (ADULT)] Future Scheduled Diabetic foot [facility] Test examination of Medicine (regime/therapy) [code = 090494393] Future Scheduled ANNUAL DIABETIC [facility] Test RETINOPATHY of Medicine SCREENING [code = ANNUAL DIABETIC RETINOPATHY SCREENING] Future Scheduled ZOSTER VACCINE (1 [facility] Test of 2) [code = of Medicine ZOSTER VACCINE (1 of 2)] Future Scheduled MEDICARE AWV [facility] Test (Initial) [code = of Medicin e MEDICARE AWV (Initial)] Future Scheduled FALL SCREEN [code = [employer] [facility] FALL SCREEN] of Medicine Future Scheduled PNEUMOVAX >=65 [facility] Test (PPSV23) [code = of Medicine PNEUMOVAX >=65 (PPSV23)] Future Scheduled FLU VACCINE > 6 [facility] Test MONTHS [code = FLU of Medici ne VACCINE > 6 MONTHS] Future Scheduled BMI FOLLOW UP PLAN [employer] Test [code = BMI FOLLOW of Medici ne UP PLAN] Future Scheduled TETANUS SHOT [facility] Test (ADULT) [code = of Medicine TETANUS SHOT (ADULT)] Future Scheduled COVID-19 Vaccine [facility] Test (1) [code = of Medicine COVID-19 Vaccine (1)] Future Scheduled Diabetic foot [facility] Test examination of Medicine (regime/therapy) [code = 367962871] Future Scheduled ANNUAL DIABETIC [facility] Test RETINOPATHY of Medicine SCREENING [code = ANNUAL DIABETIC RETINOPATHY SCREENING] Future Scheduled ZOSTER VACCINE (1 [facility] Test of 2) [code = of Medicine ZOSTER VACCINE (1 of 2)] Future Scheduled MEDICARE AWV [facility] Test (Initial) [code = of Medicin e MEDICARE AWV (Initial)] Future Scheduled FALL SCREEN [code = [facility] Test FALL SCREEN] of Medicine Future Scheduled PNEUMOVAX >=65 [facility] Test (PPSV23) [code = of Medicine PNEUMOVAX >=65 (PPSV23)] Future Scheduled FLU VACCINE > 6 [facility] Test MONTHS [code = FLU of Medici ne VACCINE > 6 MONTHS] Future Scheduled BMI FOLLOW UP PLAN [facility] Test [code = BMI FOLLOW of Medici ne UP PLAN] Future Scheduled US ARTERIAL LEG 1 Occurrences [facility] Test LEFT [code = 74364] starting of Medic ine 10/25/2020 until 10/25/2021 Encounters Start End Encounter Admission Attending Care Care Encounter Source Date/Time Date/Time Type Type Clinicians Facility Department ID 2022-03-06 Outpatient EL JOSE MANUEL [facility] Surgery [id number] SLE 17:10:49 JAKI 2021-05-12 Outpatient JOSE MANUEL [facility] Surgery [id number] SLE 05:30:32 JAKI 2021-05-09 Outpatient JOSE MANUEL [facility] Surgery [id number] SLE 02:20:35 JAKI 2021-05-08 Outpatient TEZ [facility] Surgery [id number] SLE 22:36:25 TRE 2021-05-08 Outpatient JOSE MANUEL [facility] Surgery [id number] SLE 20:04:39 JAKI 2020-10-17 Inpatient ER STEFANY BECERRA Gastro [id number] SLEH 09:05:00 KAREEN 2020-10-07 Inpatient [facility] [id number] SLE 06:29:00 KANU HORTON 2022-06-03 2022-06-03 Outpatient R BRADLEY NCMARGARET [facility] [id number] Univers 15:01:47 23:59:00 DOMINIQUE hussein [facility] 2022-06-03 2022-06-03 Office Bradley NCMARGARET [id number] Univers 15:15:00 15:30:00 Visit [facility] [id number] it y [facility] [id number] Roger as KORI?BLEA [id number] Nm hugo [address] OFFICE [facility] 2022-04-03 2022-04-03 Office SANDY Richard [id number] [facility] 14:30:00 14:57:05 Visit Jaki AMBULATOR 350.1.13.21 College Y 0.2.7.2.686 [id number] Medi jose 825 e 2022-04-03 2022-04-03 Outpatient [facility] [id number] [facility] 11:54:59 14:53:07 Colleg e of Medicin e 2022-03-22 2022-03-22 Outpatient [facility] [id number] [facility] 00:00:00 23:59:00 Colleg e of Medicin e 2022-03-22 2022-03-22 Outpatient EL STEFANY RICHARD Surgery [id number] SLE 11:31:00 20:05:00 [facility] 2022-03-22 2022-03-22 [facility] [id number] 11:31:00 20:05:00 Encounter [facility] 2022-03-22 2022-03-22 [facility] [id number] 15:38:00 18:22:00 [facility] 2022-03-22 2022-03-22 Orders [facility] [id number] 00:00:00 00:00:00 [facility] 2022-03-11 2022-03-11 Office James Rosaura [facility] [id number] 07:00:00 07:15:00 Visit [facility] 2022-03-11 2022-03-11 Outpatient [facility] [id number] SLE 00:00:00 00:00:00 2022-03-06 2022-03-07 Office SANDY RICHARD [id number] [facility] 13:09:30 19:54:11 Visit JAKI AMBULATOR 350.1.13.21 College Y 0.2.7.2.686 of [id number] [facility] jose 825 e 2022-03-06 2022-03-06 [facility] [id number] [facility] 14:15:03 14:15:03 Colleg e of Medicin e 2022-03-04 2022-03-04 [facility] [id number] Univers 13:30:00 17:30:59 Visit [facility] [id number] it y of [place] 4.2.7.2.686 Roger as KORI?BLEA [id number] [address] MEDICAL OFFICE [facility] 2022-03-04 2022-03-04 Outpatient Yong HUERTA [facility] [id number] Univers 13:30:00 17:30:59 DOMINIQUE ity [facility] 2022-03-04 2022-03-04 Outpatient Yong HUERTA [facility] [id number] Univers 13:30:00 17:30:59 DOMINIQUE ity [facility] 2022-03-04 2022-03-04 Outpatient Yong HUERTA [facility] [id number] Univers 13:30:00 13:30:00 DOMINIQUE ity [facility] 2022-03-04 2022-03-04 [facility] [id number] Univers 13:30:00 13:30:00 DOMINIQUE ity [facility] 2022-02-08 2022-02-08 Orders Doctor DEEP [id number] Univers 00:00:00 00:00:00 Only Unassigned, GREGORIO 350.1.13.10 ity of [place] [facility] 4.2.7.2.686 Roger as [id number] [address] 2022-01-29 2022-01-29 Outpatient [facility] [id number] Univers 13:15:00 14:21:07 DOMINIQUE ity [facility] 2022-01-29 2022-01-29 [facility] [id number] [id number] Univers 13:15:00 14:21:07 Visit Dominique GIFFORD 350.1.13.10 it y of [place] 4.2.7.2.686 Roger as KORI?BLEA [id number] Nm hugo CANTU 198 [facility] OFFICE [facility] 2022-01-24 2022-01-24 Telephone [facility] 1.2.840.114 [id number] Univers 00:00:00 00:00:00 Marcel Barraza HEALTH 350.1.13.10 it y of [place] 4.2.7.2.686 Roger as KOIR?BLEA [id number] Nm hugo CANTU 198 [facility] OFFICE [facility] 2021-06-27 2021-06-27 Outpatient R [facility] [id number] Univers 15:30:00 16:39:00 [facility] 2021-06-27 2021-06-27 Office [facility] [id number] Univers 15:00:36 16:39:00 Visit Marcel Barraza [facility] 350.1.13.10 it y of [place] 4.2.7.2.686 Roger as KORI?BLEA [id number] Nm hugo CANTU 198 [facility] OFFICE [facility] 2021-06-27 2021-06-27 Outpatient [facility] [id number] Univers 15:30:00 15:30:00 [facility] 2021-06-04 2021-06-04 Outpatient [facility] [id number] Univers 15:45:00 23:59:00 [facility] 2021-06-04 2021-06-04 [facility] 1.2.840.114 [id number] Univers 15:45:00 23:59:00 Encounter Dominique Huitron HEALTH 350.1.13.10 ity of [place] 4.2.7.2.686 Roger as KORI?BLEA [id number] Nm hugo CANTU 809 [facility] OFFICE [facility] 2021-06-04 2021-06-04 Outpatient R [facility] [id number] Univers 15:45:00 16:01:26 [facility] 2021-06-04 2021-06-04 Office Vanesa [facility] [id number] [facility] 15:19:21 16:01:26 Visit Mracel Barraza [facility] 350.1.13.10 it y of [place] 4.2.7.2.686 Roger as KORI?BLEA [id number] Nm hugo CANTU 198 [facility] OFFICE [facility] 2021-01-10 2021-01-10 Office SANDY Richard 1.2.840.114 [id number] [facility] 11:14:25 15:20:06 Visit Jaki AMBULATOR 350.1.13.21 College Y 0.2.7.2.686 of [id number] Medi jose 825 e 2020-10-25 2020-10-25 Office SANDY Reagan 1.2.840.114 [id number] [facility] 11:40:30 14:54:23 Visit Tre Henderson AMBULATOR 350.1.13.21 College Y 0.2.7.2.686 of [id number] [facility] jose 825 e 2020-10-25 2020-10-25 Office SANDY Richard 1.2.840.114 [id number] [facility] 10:38:48 14:53:25 Visit Jaki AMBULATOR 350.1.13.21 College Y 0.2.7.2.686 of [id number] [facility] jose 825 e 2020-10-03 2020-10-03 Outpatient EL [facility] [id number] [facility] 00:00:00 00:00:00 2020-09-29 2020-09-29 Office SANDY Crockett 1.2.840.114 [id number] [facility] 12:12:39 16:15:56 Visit Yehuda AMBULATOR 350.1.13.21 College Y 0.2.7.2.686 of [id number] [facility] jose 825 e 2020-03-16 2020-03-16 Outpatient EL [facility] [id number] [facility] 00:00:00 00:00:00 2020-02-10 2020-02-10 Outpatient EL [facility] [id number] [facility] 00:00:00 00:00:00 2020-01-17 2020-01-17 Laboratory Only, [facility] 1.2.840.114 [id number] 14:02:02 14:17:02 Only Test Ying 350.1.13.10 [place] 4.2.7.2.686 [place] [id number] 353 2020-01-17 2020-01-17 Laboratory Only, [place] Hospital Test [facility] 1.2.840. 114 [id number] Formerly [facility] 14:02:02 14:17:02 Only Christina Eron He 350.1.13.10 ity of [place] 4.2.7.2.686 [facility] [phone] [address] 2020-01-17 2020-01-17 Outpatient R ERON VASQUEZ [facility] [id number] Univers 14:00:00 14:00:00 ity of [facility] 2020-01-17 2020-01-17 Outpatient EL SLE SLE [id number] [facility] 00:00:00 00:00:00 2020-01-17 2020-01-17 Orders Doctor DEEP 1.2.840.114 [id number] 00:00:00 00:00:00 Only Unassigned, GREGORIO 350.1.13.10 [place] [facility] 4.2.7.2.686 [id number] 009 2020-01-17 2020-01-17 Orders Doctor DEEP 1.2.840.114 [id number] Formerly [facility] 00:00:00 00:00:00 Only Unassigned, GREGORIO 350.1.13.10 ity of [place] [facility] 4.2.7.2.686 Roger [id number] [address] Results Test Description Test Time Test Comments Results Result Comments Source POC-Glucose meter 2022-03-22 18:35:36 Test Item Value Reference Range Interpretation Comme [facility] POC-Glucose Meter (test code = 96 mg/dL 70-110 : TESTED AT [facility] [address] [place] [id number]) [facility], 770 30: Cut Off Saw Operator/Techni sneha ID = [id number] for MAYURI DYER Lab Interpretation (test code = Normal 54488-4) [facility] [id number] 18:35:36 Test Item Value Reference Range Interpretation Comments POC-GLUCOSE METER 96 mg/dL 70-110 : TESTED A T [facility] 6720 (BEAKER) (test code = [place], 1538) [address]: Cut Off Saw Operator/Techni sneha ID = [id number] for MAYURI LOCO POCT-GLUCOSE [id number] 18:16:05 Test Item Value Reference Range Interpretation Comments POC-GLUCOSE METER 76 mg/dL 70-110 : TESTED A T [facility] 6720 (BEAKER) (test code = MANI [place] [facility], 1538) [address]: Cut Off Saw Operator/Techni sneha ID = [id number] for MARILYNN GEIGER BASIC METABOLIC [id number] 13:32:18 Test Item Value Reference Range Interpretation Comments SODIUM (BEAKER) 138 meq/L 136-145 (test code = 381) POTASSIUM 4.5 meq/L 3.5-5.1 (BEAKER) (test code = 379) CHLORIDE (BEAKER) 103 meq/L 98-107 (test code = 382) CO2 (BEAKER) 25 meq/L 22-29 (test code = 355) BLOOD UREA 23 mg/dL 7-21 H NITROGEN (BEAKER) (test code = 354) CREATININE 1.29 mg/dL 0.57-1.25 H (BEAKER) (test code = 358) GLUCOSE RANDOM 79 mg/dL 70-105 (BEAKER) (test code = 652) CALCIUM (BEAKER) 9.3 mg/dL 8.4-10.2 (test code = 697) EGFR (BEAKER) 55 Interpretatio n of eGFR (test code = mL/min/1.73 values Stage De scription 1092) sq m Result G1 Norm al or high >=90 G2 Mildly decreased 60-89 G3a Mildl y to moderately 45-5 9 G3b Moderately to s everely 30-44 G4 Severl y decreased 15-29 G5 Kidney failure <15Reported eGF R is based on the CKD-EPI 1 equation that d oes not use a race coefficientEsti mated GFR is not as accur ate as Creatinine Isabel ryan in predicting glom erular filtration rate . Estimated GFR is not appl icable for dialysis patien ts Cut Off Saw Operator ID - JANINA MCBC W/PLT COUNT & AUTO [id number] 13:11:32 Test Item Value Reference Range Interpretation Comments WHITE BLOOD CELL COUNT (BEAKER) 8.5 K/ L 3.5-10.5 (test code = 775) RED BLOOD CELL COUNT (BEAKER) 3.92 M/ L 4.63-6.08 L (test code = 761) HEMOGLOBIN (BEAKER) (test code = 12.6 GM/DL 13.7-17.5 L 410) HEMATOCRIT (BEAKER) (test code = 38.8 % 40.1-51.0 L 411) MEAN CORPUSCULAR VOLUME (BEAKER) 99.0 fL 79.0-92.2 H (test code = 753) MEAN CORPUSCULAR HEMOGLOBIN 32.1 pg 25.7-32.2 (BEAKER) (test code = 751) MEAN CORPUSCULAR HEMOGLOBIN CONC 32.5 GM/DL 32.3-36.5 (BEAKER) (test code = 752) RED CELL DISTRIBUTION WIDTH 12.9 % 11.6-14.4 (BEAKER) (test code = 412) PLATELET COUNT (BEAKER) (test 218 K/CU MM 150-450 code = 756) MEAN PLATELET VOLUME (BEAKER) 9.2 fL 9.4-12.4 L (test code = 754) NUCLEATED RED BLOOD CELLS 0 /100 WBC 0-0 (BEAKER) (test code = 413) NEUTROPHILS RELATIVE PERCENT 61 % (BEAKER) (test code = 429) LYMPHOCYTES RELATIVE PERCENT 21 % (BEAKER) (test code = 430) MONOCYTES RELATIVE PERCENT 10 % (BEAKER) (test code = 431) EOSINOPHILS RELATIVE PERCENT 6 % (BEAKER) (test code = 432) BASOPHILS RELATIVE PERCENT 1 % (BEAKER) (test code = 437) NEUTROPHILS ABSOLUTE COUNT 5.22 K/ L 1.78-5.38 (BEAKER) (test code = 670) LYMPHOCYTES ABSOLUTE COUNT 1.79 K/ L 1.32-3.57 (BEAKER) (test code = 414) MONOCYTES ABSOLUTE COUNT (BEAKER) 0.89 K/ L 0.30-0.82 H (test code = 415) EOSINOPHILS ABSOLUTE COUNT 0.54 K/ L 0.04-0.54 (BEAKER) (test code = 416) BASOPHILS ABSOLUTE COUNT (BEAKER) 0.04 K/ L 0.01-0.08 (test code = 417) IMMATURE GRANULOCYTES-RELATIVE 1 % 0-1 PERCENT (BEAKER) (test code = 2801) POCT-GLUCOSE [id number] 15:45:00 Test Item Value Reference Range Interpretation Comments POC-GLUCOSE METER 192 mg/dL 70-110 H : TESTED A T [facility] 6720 (BEAKER) (test code = [facility], 1538) [address]: Cut Off Saw Operator/Techni sneha ID = [id number] for Randa Shannon POCT-GLUCOSE [id number] 08:38:00 Test Item Value Reference Range Interpretation Comments POC-GLUCOSE METER 143 mg/dL 70-110 H : TESTED A T [facility] 6720 (BEAKER) (test code = [facility], 1538) [address]: Cut Off Saw Operator/Techni sneha ID = [id number] for Arlene Smith BASIC METABOLIC [id number] 05:27:00 Test Item Value Reference Range Interpretation Comments SODIUM (BEAKER) 137 meq/L 136-145 (test code = 381) POTASSIUM (BEAKER) 4.0 meq/L 3.5-5.1 (test code = 379) CHLORIDE (BEAKER) 105 meq/L 98-107 (test code = 382) CO2 (BEAKER) (test 24 meq/L 22-29 code = 355) BLOOD UREA NITROGEN 23 mg/dL 7-21 H (BEAKER) (test code = 354) CREATININE (BEAKER) 0.84 mg/dL 0.57-1.25 (test code = 358) GLUCOSE RANDOM 121 mg/dL 70-105 H (BEAKER) (test code = 652) CALCIUM (BEAKER) 8.1 mg/dL 8.4-10.2 L (test code = 697) EGFR (BEAKER) (test 87 mL/min/1.73 ESTIMA LAI GFR IS code = 1092) sq m NOT ACCURATE CREATININE CLEARANCE IN PREDICTING GLOMERULAR FILTRATION RATE . ESTIMATED GFR I S NOT APPLICABLE FOR DIALYSIS PATIEN TS. Cut Off Saw Operator ID - PIAYA LCBC W/PLT COUNT & AUTO [id number] 05:15:00 Test Item Value Reference Range Interpretation Comments WHITE BLOOD CELL COUNT (BEAKER) 14.0 K/ L 3.5-10.5 H (test code = 775) RED BLOOD CELL COUNT (BEAKER) 2.41 M/ L 4.63-6.08 L (test code = 761) HEMOGLOBIN (BEAKER) (test code = 7.5 GM/DL 13.7-17.5 L 410) HEMATOCRIT (BEAKER) (test code = 22.3 % 40.1-51.0 L 411) MEAN CORPUSCULAR VOLUME (BEAKER) 92.5 fL 79.0-92.2 H (test code = 753) MEAN CORPUSCULAR HEMOGLOBIN 31.1 pg 25.7-32.2 (BEAKER) (test code = 751) MEAN CORPUSCULAR HEMOGLOBIN CONC 33.6 GM/DL 32.3-36.5 (BEAKER) (test code = 752) RED CELL DISTRIBUTION WIDTH 14.5 % 11.6-14.4 H (BEAKER) (test code = 412) PLATELET COUNT (BEAKER) (test 246 K/CU MM 150-450 code = 756) MEAN PLATELET VOLUME (BEAKER) 9.3 fL 9.4-12.4 L (test code = 754) NUCLEATED RED BLOOD CELLS 0 /100 WBC 0-0 (BEAKER) (test code = 413) NEUTROPHILS RELATIVE PERCENT 72 % (BEAKER) (test code = 429) LYMPHOCYTES RELATIVE PERCENT 19 % (BEAKER) (test code = 430) MONOCYTES RELATIVE PERCENT 8 % (BEAKER) (test code = 431) EOSINOPHILS RELATIVE PERCENT 0 % (BEAKER) (test code = 432) BASOPHILS RELATIVE PERCENT 0 % (BEAKER) (test code = 437) NEUTROPHILS ABSOLUTE COUNT 10.09 K/ L 1.78-5.38 H (BEAKER) (test code = 670) LYMPHOCYTES ABSOLUTE COUNT 2.66 K/ L 1.32-3.57 (BEAKER) (test code = 414) MONOCYTES ABSOLUTE COUNT (BEAKER) 1.08 K/ L 0.30-0.82 H (test code = 415) EOSINOPHILS ABSOLUTE COUNT 0.02 K/ L 0.04-0.54 L (BEAKER) (test code = 416) BASOPHILS ABSOLUTE COUNT (BEAKER) 0.02 K/ L 0.01-0.08 (test code = 417) IMMATURE GRANULOCYTES-RELATIVE 1 % 0-1 PERCENT (BEAKER) (test code = 2801) POCT-GLUCOSE [id number] 20:58:00 Test Item Value Reference Range Interpretation Comments POC-GLUCOSE METER 237 mg/dL 70-110 H : TESTED A T [facility] 6720 (BEAKER) (test code = [facility], 1538) [address]: Cut Off Saw Operator/Techni senha ID = [id number] for Cade Bauer POCT-GLUCOSE [id number] 18:22:00 Test Item Value Reference Range Interpretation Comments POC-GLUCOSE METER 259 mg/dL 70-110 H : TESTED A T [facility] 6720 (BEAKER) (test code = [facility], 1538) 74[address]: Cut Off Saw Operator/Techni sneha ID = [id number] for Nargis Park HEMOGLOBIN AND [id number] 17:29:00 Test Item Value Reference Range Interpretation Comments HEMOGLOBIN (BEAKER) (test code = 8.3 GM/DL 13.7-17.5 L 410) HEMATOCRIT (BEAKER) (test code = 26.0 % 40.1-51.0 L 411) Cut Off Saw Operator ID - [id number]-GLUCOSE [id number] 11:44:00 Test Item Value Reference Range Interpretation Comments POC-GLUCOSE METER 186 mg/dL 70-110 H : TESTED A T [facility] 6720 (BEAKER) (test code = [facility], 153) [address]: Cut Off Saw Operator/Techni sneha ID = [id number] for Jake Arce CT, CTA [id number] 10:50:00Spoke with Dr Newsome. Plan for prep for iodine contrast allergy overnight, CTA at 8 AMUnlisted Reasonfor Exam - Click Yes and Enter Reason Below->No [facility] : 1935 Sex: MFINAL REPORT History: GI bleed. TECHNIQUE: Helical CT of the abdomen and pelvis were performed prior to and following the uneventful administration of intravenous contrast utilizinga CTA GI bleed protocol, multiple windows, sagittal and coronal reformations. This exam was performed according to our departmental dose optimization program which includes automated exposure control, adjustment of the mA and/or KV according to the patient's size and/or use of iterative reconstructiontechnique. FINDINGS: Moderate diffuse atherosclerotic calcification of the aorta and its major branches is seen. The celiac axis, SMA and CT are patent. Single patent renal arteries are present bilaterally. No vascular malformations or anomalies other than diffuse atherosclerosis. Scattered colonic diverticulosis is present, especially in the distal descending and sigmoid colon regions. There is no active contrast extravasation or pooling of contrast to suggest active gastrointestinal hemorrhage. The stomach, remaining visible portions of the colon and small bowel are also unremarkable. No evidence for obstruction or free air to suggest perforation. Solid abdominal pelvic organs including the liver, spleen, kidneys, pancreas, adrenal glands and prostate gland are unremarkable. Small stones are present in the gallbladder lumen. No CT evidence for acute cholecystitis or other acute biliary abnormalities. Urinary bladder is unremarkable. 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 Bones are osteopenic but otherwise unremarkable. Images obtained through the lower chest and lung bases are clear. Remote postsurgical changes are noted in the right common femoralarea where there is significant surgical scar and multiple surgical clips. IMPRESSION: 1. No evidence for active gastrointestinal hemorrhage. Specifically, the descending colon is unremarkable except for scattered diverticulosis. 2. Atherosclerosis. 3. Cholelithiasis. Signed: Deep Madrigal Verified Date/Time: 10/19/2020 10:50:14 Reading Location: [place] [address] Angio Body Reading Room POCT-GLUCOSE [id number] 07:28:00 Test Item Value Reference Range Interpretation Comments POC-GLUCOSE METER 192 mg/dL 70-110 H : TESTED A T [facility] 6720 (BEAKER) (test code = MANI Yong [facility], 1538) [address]: Cut Off Saw Operator/Techni sneha ID = [id number] for Nargis Park BASIC METABOLIC [id number] 04:54:00 Test Item Value Reference Range Interpretation Comments SODIUM (BEAKER) 133 meq/L 136-145 L (test code = 381) POTASSIUM (BEAKER) 4.7 meq/L 3.5-5.1 (test code = 379) CHLORIDE (BEAKER) 103 meq/L 98-107 (test code = 382) CO2 (BEAKER) (test 21 meq/L 22-29 L code = 355) BLOOD UREA NITROGEN 21 mg/dL 7-21 (BEAKER) (test code = 354) CREATININE (BEAKER) 0.83 mg/dL 0.57-1.25 (test code = 358) GLUCOSE RANDOM 185 mg/dL 70-105 H (BEAKER) (test code = 652) CALCIUM (BEAKER) 8.2 mg/dL 8.4-10.2 L (test code = 697) EGFR (BEAKER) (test 88 mL/min/1.73 ESTIMA LAI GFR IS code = 1092) sq m NOT ACCURATE CREATININE CLEARANCE IN PREDICTING GLOMERULAR FILTRATION RATE . ESTIMATED GFR I S NOT APPLICABLE FOR DIALYSIS PATIEN TS. Cut Off Saw Operator ID - PIAYA LPROTHROMBIN [id number] 04:43:00 Test Item Value Reference Range Interpretation Comments PROTIME (BEAKER) 13.9 seconds 11.9-14.2 (test code = 759) INR (BEAKER) (test 1.11 See_Comment [Automat ed message] code = 370) The system [employer] generated this result transmitted ref erence range: <=5.90. The reference range was not used to int erpret this result as normal/abnormal . Effective 12/30/2018: PT Reference Range ChangeNew: 11.9-14.2 Previous: 11.7- 14.7RECOMMENDED COUMADIN/WARFARIN INR THERAPY RANGESSTANDARD DOSE: 2.0-3.0 Includes: PROPHYLAXIS for venous thrombosis, systemic embolization; TREATMENT for venous thrombosis and/or pulmonary embolus.HIGH RISK: Target INR is 2.5-3.5 for patients wiht mechanical heart valves.CBC W/PLT COUNT & AUTO [id number] 04:39:00 Test Item Value Reference Range Interpretation Comments WHITE BLOOD CELL COUNT (BEAKER) 8.8 K/ L 3.5-10.5 (test code = 775) RED BLOOD CELL COUNT (BEAKER) 2.28 M/ L 4.63-6.08 L (test code = 761) HEMOGLOBIN (BEAKER) (test code = 6.9 GM/DL 13.7-17.5 L 410) HEMATOCRIT (BEAKER) (test code = 21.0 % 40.1-51.0 L 411) MEAN CORPUSCULAR VOLUME (BEAKER) 92.1 fL 79.0-92.2 (test code = 753) MEAN CORPUSCULAR HEMOGLOBIN 30.3 pg 25.7-32.2 (BEAKER) (test code = 751) MEAN CORPUSCULAR HEMOGLOBIN CONC 32.9 GM/DL 32.3-36.5 (BEAKER) (test code = 752) RED CELL DISTRIBUTION WIDTH 14.4 % 11.6-14.4 (BEAKER) (test code = 412) PLATELET COUNT (BEAKER) (test 250 K/CU MM 150-450 code = 756) MEAN PLATELET VOLUME (BEAKER) 9.1 fL 9.4-12.4 L (test code = 754) NUCLEATED RED BLOOD CELLS 0 /100 WBC 0-0 (BEAKER) (test code = 413) NEUTROPHILS RELATIVE PERCENT 82 % (BEAKER) (test code = 429) LYMPHOCYTES RELATIVE PERCENT 13 % (BEAKER) (test code = 430) MONOCYTES RELATIVE PERCENT 4 % (BEAKER) (test code = 431) EOSINOPHILS RELATIVE PERCENT 0 % (BEAKER) (test code = 432) BASOPHILS RELATIVE PERCENT 0 % (BEAKER) (test code = 437) NEUTROPHILS ABSOLUTE COUNT 7.21 K/ L 1.78-5.38 H (BEAKER) (test code = 670) LYMPHOCYTES ABSOLUTE COUNT 1.17 K/ L 1.32-3.57 L (BEAKER) (test code = 414) MONOCYTES ABSOLUTE COUNT (BEAKER) 0.33 K/ L 0.30-0.82 (test code = 415) EOSINOPHILS ABSOLUTE COUNT 0.00 K/ L 0.04-0.54 L (BEAKER) (test code = 416) BASOPHILS ABSOLUTE COUNT (BEAKER) 0.01 K/ L 0.01-0.08 (test code = 417) IMMATURE GRANULOCYTES-RELATIVE 1 % 0-1 PERCENT (BEAKER) (test code = 2801) POCT-GLUCOSE [id number] 22:17:00 Test Item Value Reference Range Interpretation Comments POC-GLUCOSE METER 277 mg/dL 70-110 H : TESTED A T [facility] 6720 (BEAKER) (test code = [place], 1538) [address]: Cut Off Saw Operator/Techni sneha ID = [id number] for Yajaira Alvarez POCT-GLUCOSE [id number] 18:21:00 Test Item Value Reference Range Interpretation Comments POC-GLUCOSE METER 298 mg/dL 70-110 H : TESTED A T [facility] 6720 (BEAKER) (test code = [place], 1538) [address]: Cut Off Saw Operator/Techni sneha ID = [id number] for Nargis Park HEMOGLOBIN AND [id number] 17:22:00 Test Item Value Reference Range Interpretation Comments HEMOGLOBIN (BEAKER) (test code = 7.6 GM/DL 13.7-17.5 L 410) HEMATOCRIT (BEAKER) (test code = 24.3 % 40.1-51.0 L 411) Cut Off Saw Operator ID - [id number] IMAGING, [id number] 15:35:00Unlisted Reason for Exam - Click Yes and Enter Reason Below->No [facility] : 1935 Sex: MFINAL REPORT PROCEDURE: HEMORRHAGE STUDY with RBCs CPT CODE: 73276 INDICATION: Gastrointestinal Bleeding PROTOCOL: 21.8 mCi of Tc-99m was injected intravenously as labeled autologousred blood cells. Flow images of the abdomen were obtained, followed by serial images for approximately 60 minutes. FINDINGS: Marked progressive increase in tracer activity which originates in the left mid abdomen laterally and courses over the left lower and mid abdomen in a curvilinear pattern. IMPRESSION: Active gastrointestinal hemorrhage arising in the mid descending colon. Signed: Romero Romero MDReport Verified Date/Time: 10/18/2020 15:35:54 Reading Location: [address] ReadingRoom POCT- GLUCOSE [id number] 12:29:00 Test Item Value Reference Range Interpretation Comments POC-GLUCOSE METER 161 mg/dL 70-110 H : TESTED A T [facility] 6720 ([facility]) (test code = [place]ARONJOYCE [place], 1538) [address]: Cut Off Saw Operator/Techni sneha ID = [id number] for Nargis Park SARS-COV2/RT-PCR ([facility])2020-10-18 09:51:00 Test Item Value Reference Range Interpretation Comments SARS-COV2/RT-PCR (test Negative Not Detected, Negative, code = 2244544) See external report for linked test SARS-COV-2 PERFORMING LAB [facility] PATRICIA (test code = 0150971) Negative result for this test determines that SARS-CoV-2 RNA was not present in the specimen above the Limit of Detection (LOD). However, Negative results do not preclude SARS-CoV-2 infection and should not be used as the sole basis for treatment or patient management decisions. Negative results must be combined with clinical observations, patient history, and epidemiological information. A false negative result may occur if a specimen is improperly collected, transported or handled. A false negative result should be considered if patient's recent exposures or clinical presentation indicate that COVID-19 (SARS-CoV-2) is likely and diagnostic tests for other causes of illness are negative. Re-testing should be considered in cases of suspected false negatives.The limit of detection for this assay is 800 copies/mL.This SARS CoV-2 test is a real-time RT-PCR test intended for the qualitative detection of nucleic acid from SARS-CoV-2 in a nasopharyngeal swab specimen collected from individuals suspected of COVID-19 by their healthcare provider.This test has not been Food and Drug Administration (FDA) cleared or approved. This is a modified version of an approved Emergency Use Authorization (EUA) and is in the process of review by the FDA. Once authorized by the FDA, the issued EUA will be effective until the declaration that circumstances exist justifying the authorization of the emergency use ofin vitro diagnostic tests for detection and/or diagnosis of COVID-19 is terminated under Section 564(b)(2) of the Act or the EUA is revoked under Section 564(g) of the Act.Fact Sheet for Healthcare Prov iders:https://www.[employer]/sites/default/files/product/documents/Fact_Sheet_HC _Qyhxntbbv_Pstu_MSUH-JyW-9.pdfFact Sheet for Healthcare Patients:https://www.[employer]/sites/default/files/product/docume nts/Clch_Mokoz_Rxqqzjwe_Keop_OWXR-CwP-3.pdfPerforming Laboratory:[facility] [place], [place] [address]NGOQ-ZOHMYIY METER 2020-10-18 09:13:00 Test Item Value Reference Range Interpretation Comments POC-GLUCOSE METER 111 mg/dL 70-110 H : TESTED A T [facility] 6720 (BEAKER) (test code = MANI [place] [facility], 1538) [address]: Cut Off Saw Operator/Techni sneha ID = [id number] for Nargis Park BASIC METABOLIC [id number] 05:21:00 Test Item Value Reference Range Interpretation Comments SODIUM (BEAKER) 138 meq/L 136-145 (test code = 381) POTASSIUM (BEAKER) 3.9 meq/L 3.5-5.1 (test code = 379) CHLORIDE (BEAKER) 106 meq/L 98-107 (test code = 382) CO2 (BEAKER) (test 24 meq/L 22-29 code = 355) BLOOD UREA NITROGEN 21 mg/dL 7-21 (BEAKER) (test code = 354) CREATININE (BEAKER) 0.82 mg/dL 0.57-1.25 (test code = 358) GLUCOSE RANDOM 88 mg/dL 70-105 (BEAKER) (test code = 652) CALCIUM (BEAKER) 8.1 mg/dL 8.4-10.2 L (test code = 697) EGFR (BEAKER) (test 89 mL/min/1.73 ESTIMA LAI GFR IS code = 1092) sq m NOT ACCURATE CREATININE CLEARANCE IN PREDICTING GLOMERULAR FILTRATION RATE . ESTIMATED GFR I S NOT APPLICABLE FOR DIALYSIS PATIEN TS. Cut Off Saw Operator ID - EDASICBC W/PLT COUNT & AUTO [id number] 05:00:00 Test Item Value Reference Range Interpretation Comments WHITE BLOOD CELL COUNT (BEAKER) 8.6 K/ L 3.5-10.5 (test code = 775) RED BLOOD CELL COUNT (BEAKER) 2.56 M/ L 4.63-6.08 L (test code = 761) HEMOGLOBIN (BEAKER) (test code = 7.6 GM/DL 13.7-17.5 L 410) HEMATOCRIT (BEAKER) (test code = 23.8 % 40.1-51.0 L 411) MEAN CORPUSCULAR VOLUME (BEAKER) 93.0 fL 79.0-92.2 H (test code = 753) MEAN CORPUSCULAR HEMOGLOBIN 29.7 pg 25.7-32.2 (BEAKER) (test code = 751) MEAN CORPUSCULAR HEMOGLOBIN CONC 31.9 GM/DL 32.3-36.5 L (BEAKER) (test code = 752) RED CELL DISTRIBUTION WIDTH 14.5 % 11.6-14.4 H (BEAKER) (test code = 412) PLATELET COUNT (BEAKER) (test 239 K/CU MM 150-450 code = 756) MEAN PLATELET VOLUME (BEAKER) 8.8 fL 9.4-12.4 L (test code = 754) NUCLEATED RED BLOOD CELLS 0 /100 WBC 0-0 (BEAKER) (test code = 413) NEUTROPHILS RELATIVE PERCENT 53 % (BEAKER) (test code = 429) LYMPHOCYTES RELATIVE PERCENT 34 % (BEAKER) (test code = 430) MONOCYTES RELATIVE PERCENT 7 % (BEAKER) (test code = 431) EOSINOPHILS RELATIVE PERCENT 5 % (BEAKER) (test code = 432) BASOPHILS RELATIVE PERCENT 0 % (BEAKER) (test code = 437) NEUTROPHILS ABSOLUTE COUNT 4.56 K/ L 1.78-5.38 (BEAKER) (test code = 670) LYMPHOCYTES ABSOLUTE COUNT 2.92 K/ L 1.32-3.57 (BEAKER) (test code = 414) MONOCYTES ABSOLUTE COUNT (BEAKER) 0.64 K/ L 0.30-0.82 (test code = 415) EOSINOPHILS ABSOLUTE COUNT 0.42 K/ L 0.04-0.54 (BEAKER) (test code = 416) BASOPHILS ABSOLUTE COUNT (BEAKER) 0.02 K/ L 0.01-0.08 (test code = 417) IMMATURE GRANULOCYTES-RELATIVE 1 % 0-1 PERCENT (BEAKER) (test code = 2801) PROTHROMBIN [id number] 04:58:00 Test Item Value Reference Range Interpretation Comments PROTIME (BEAKER) 13.8 seconds 11.9-14.2 (test code = 759) INR (BEAKER) (test 1.10 See_Comment [Automat ed message] code = 370) The system [employer] generated this result transmitted ref erence range: <=5.90. The reference range was not used to int erpret this result as normal/abnormal . Effective 12/30/2018: PT Reference Range ChangeNew: 11.9-14.2 Previous: 11.7- 14.7RECOMMENDED COUMADIN/WARFARIN INR THERAPY RANGESSTANDARD DOSE: 2.0-3.0 Includes: PROPHYLAXIS for venous thrombosis, systemic embolization; TREATMENT for venous thrombosis and/or pulmonary embolus.HIGH RISK: Target INR is 2.5-3.5 for patients wiht mechanical heart valves.HEMOGLOBIN AND [id number] 23:01:00 Test Item Value Reference Range Interpretation Comments HEMOGLOBIN (BEAKER) (test code = 7.5 GM/DL 13.7-17.5 L 410) HEMATOCRIT (BEAKER) (test code = 23.6 % 40.1-51.0 L 411) Cut Off Saw Operator ID - [id number]-GLUCOSE [id number] 21:44:00 Test Item Value Reference Range Interpretation Comments POC-GLUCOSE METER 118 mg/dL 70-110 H : TESTED A T [facility] 6720 (BEAKER) (test code = [facility], 1538) [id number]: Cut Off Saw Operator/Techni sneha ID = [id number] for Yajaira Alvarez POCT-GLUCOSE [id number] 18:17:00 Test Item Value Reference Range Interpretation Comments POC-GLUCOSE METER 101 mg/dL 70-110 : TESTED A T [facility] 6720 (BEAKER) (test code = [facility], 1538) [id number]: Cut Off Saw Operator/Techni sneha ID = [id number] for LEIA SNOW COMPREHENSIVE METABOLIC [id number] 13:04:00 Test Item Value Reference Range Interpretation Comments TOTAL PROTEIN 5.5 gm/dL 6.0-8.3 L (BEAKER) (test code = 770) ALBUMIN (BEAKER) 3.1 g/dL 3.5-5.0 L (test code = 1145) ALKALINE PHOSPHATASE 78 U/L 40-150 (BEAKER) (test code = 346) BILIRUBIN TOTAL 0.3 mg/dL 0.2-1.2 (BEAKER) (test code = 377) SODIUM (BEAKER) (test 139 meq/L 136-145 code = 381) POTASSIUM (BEAKER) 4.6 meq/L 3.5-5.1 (test code = 379) CHLORIDE (BEAKER) 108 meq/L 98-107 H (test code = 382) CO2 (BEAKER) (test 21 meq/L 22-29 L code = 355) BLOOD UREA NITROGEN 25 mg/dL 7-21 H (BEAKER) (test code = 354) CREATININE (BEAKER) 0.99 mg/dL 0.57-1.25 (test code = 358) GLUCOSE RANDOM 92 mg/dL 70-105 (BEAKER) (test code = 652) CALCIUM (BEAKER) 7.9 mg/dL 8.4-10.2 L (test code = 697) AST (SGOT) (BEAKER) 10 U/L 5-34 (test code = 353) ALT (SGPT) (BEAKER) 8 U/L 6-55 (test code = 347) EGFR (BEAKER) (test 72 mL/min/1.73 ESTIMA LAI GFR IS code = 1092) sq m NOT ACCURATE CREATININE CLEARANCE IN PREDICTING GLOMERULAR FILTRATION RATE . ESTIMATED GFR I S NOT APPLICABLE FOR DIALYSIS PATIEN TS. Cut Off Saw Operator ID Danay LEEANNA [id number] 13:02:00 Test Item Value Reference Range Interpretation Comments MAGNESIUM (BEAKER) (test code = 1.9 mg/dL 1.6-2.6 627) Cut Off Saw Operator ID Danay LEEANNA [id number] 13:01:00 Test Item Value Reference Range Interpretation Comments PARTIAL THROMBOPLASTIN TIME 32.8 seconds 22.5-36.0 (BEAKER) (test code = 760) PROTHROMBIN [id number] 13:00:00 Test Item Value Reference Range Interpretation Comments PROTIME (BEAKER) 14.2 seconds 11.9-14.2 (test code = 759) INR (BEAKER) (test 1.13 See_Comment [Automat ed message] code = 370) The system [employer] generated this result transmitted ref erence range: <=5.90. The reference range was not used to int erpret this result as normal/abnormal . Effective 12/30/2018: PT Reference Range ChangeNew: 11.9-14.2 Previous: 11.7- 14.7RECOMMENDED COUMADIN/WARFARIN INR THERAPY RANGESSTANDARD DOSE: 2.0-3.0 Includes: PROPHYLAXIS for venous thrombosis, systemic embolization; TREATMENT for venous thrombosis and/or pulmonary embolus.HIGH RISK: Target INR is 2.5-3.5 for patients wiht mechanical heart valves.CBC W/PLT COUNT & AUTO [id number] 12:47:00 Test Item Value Reference Range Interpretation Comments WHITE BLOOD CELL COUNT (BEAKER) 10.5 K/ L 3.5-10.5 (test code = 775) RED BLOOD CELL COUNT (BEAKER) 2.34 M/ L 4.63-6.08 L (test code = 761) HEMOGLOBIN (BEAKER) (test code = 7.3 GM/DL 13.7-17.5 L 410) HEMATOCRIT (BEAKER) (test code = 22.8 % 40.1-51.0 L 411) MEAN CORPUSCULAR VOLUME (BEAKER) 97.4 fL 79.0-92.2 H (test code = 753) MEAN CORPUSCULAR HEMOGLOBIN 31.2 pg 25.7-32.2 (BEAKER) (test code = 751) MEAN CORPUSCULAR HEMOGLOBIN CONC 32.0 GM/DL 32.3-36.5 L (BEAKER) (test code = 752) RED CELL DISTRIBUTION WIDTH 14.1 % 11.6-14.4 (BEAKER) (test code = 412) PLATELET COUNT (BEAKER) (test 266 K/CU MM 150-450 code = 756) MEAN PLATELET VOLUME (BEAKER) 9.2 fL 9.4-12.4 L (test code = 754) NUCLEATED RED BLOOD CELLS 0 /100 WBC 0-0 (BEAKER) (test code = 413) NEUTROPHILS RELATIVE PERCENT 62 % (BEAKER) (test code = 429) LYMPHOCYTES RELATIVE PERCENT 27 % (BEAKER) (test code = 430) MONOCYTES RELATIVE PERCENT 7 % (BEAKER) (test code = 431) EOSINOPHILS RELATIVE PERCENT 3 % (BEAKER) (test code = 432) BASOPHILS RELATIVE PERCENT 1 % (BEAKER) (test code = 437) NEUTROPHILS ABSOLUTE COUNT 6.55 K/ L 1.78-5.38 H (BEAKER) (test code = 670) LYMPHOCYTES ABSOLUTE COUNT 2.83 K/ L 1.32-3.57 (BEAKER) (test code = 414) MONOCYTES ABSOLUTE COUNT (BEAKER) 0.71 K/ L 0.30-0.82 (test code = 415) EOSINOPHILS ABSOLUTE COUNT 0.27 K/ L 0.04-0.54 (BEAKER) (test code = 416) BASOPHILS ABSOLUTE COUNT (BEAKER) 0.05 K/ L 0.01-0.08 (test code = 417) IMMATURE GRANULOCYTES-RELATIVE 1 % 0-1 PERCENT (BEAKER) (test code = 2801) TISSUE [id number] 10:47:00Surgical Pathology Report Case: [id number] Authorizing Provider: Chun Amaya MD Collected: 10/08/2020 08:35 AM Ordering Location: [address] Received: 10/09/2020 09:40 AM Service Pathologist: Dell Edgar MD Specimens: A) - Biopsy, Gastric, gastric bx R/O h.pylori B) - Polyp, Colon - Left/Descending, descending colon polyp, sigmoid colon polyp PART A GASTRIC BIOPSY:ANTRAL AND OXYNTIC MUCOSA WITH NONSPECIFIC REACTIVE GASTROPATHY.NEGATIVE FOR INTESTINAL METAPLASIA, DYSPLASIA, OR INVASIVE CARCINOMA.WARTHIN STARRY STAIN FOR HELICOBACTER IS NEGATIVE. PART B LEFT DESCENDING COLON POLYP, POLYPECTOMYX2:TUBULAR ADENOMA.SEPARATELY IDENTIFIED INFLAMMATORY POLYP. Signing Pathologist Direct Phone Line: [phone] signed by Dell Edgar MD on 10/10/2020 at 10:47 [id number], [id number] bleedingA. StomachB. Descending colonSpecimen A is received in formalin labelled with the patient's name, medical record number and " biopsy, gastric" and consists of multiple cuba-pink irregular soft tissue fragments (0.3 x 0.2 x 0.2 cm-0.6 x 0.3 x 0.2 cm in greatest dimension). The specimen is submitted in toto in A1.Specimen B is received in formalin labelled with thepatient's name, medical record number and " polyp, colon- left/descending" and consists of multiple cuba-pink irregular soft tissue fragments (0.2 x 0.2 x 0.2 cm-0.9 x 0.3 x 0.3 cm in greatest dimension). The specimen is submitted in B1-B2 (B2 contains the largest polyp bisected)PERFORMEDThe interpretation of this case included the use of immunohistochemistry or special stains.BLOCK A1- WARTHIN STARRYControl Slides Examined: In-house known positive controls were evaluated along with the test tissue. These control slides run alongside of the patients sample show appropriate staining. Internal positiveand negative controls when available are evaluated Immunohistochemistry technical testing was performed at [facility], Pathology Laboratory where it was developed and its performance characteristics were determined. It has not been cleared or approved by the U.S. Food and Drug Administration. The FDA has determined that such clearance or approval is not necessary. The test is used for clinical purposes. It should not be regarded as investigational or for research. This laboratory is certified under the Clinical Laboratory Improvement Amendments of 1988 (CLIA-88) as qualified to perform high complexity clinical laboratory testing.[facility], Department ofPathology, [address] [place] [address], [facility] of [facility], [address] [place] [address], [facility], Department of Pathology, [address] [place] [address], HPVP-GLUCOSE [id number] 07:21:00 Test Item Value Reference Range Interpretation Comments POC-GLUCOSE METER 99 mg/dL 70-110 : TESTED A T [facility] 6720 (BEAKER) (test code = [place] [facility], 1538) [address]: Cut Off Saw Operator/Techni sneha ID = [id number] for Ray terryJess BASIC METABOLIC [id number] 06:24:00 Test Item Value Reference Range Interpretation Comments SODIUM (BEAKER) 135 meq/L 136-145 L (test code = 381) POTASSIUM (BEAKER) 3.8 meq/L 3.5-5.1 (test code = 379) CHLORIDE (BEAKER) 105 meq/L 98-107 (test code = 382) CO2 (BEAKER) (test 25 meq/L 22-29 code = 355) BLOOD UREA NITROGEN 20 mg/dL 7-21 (BEAKER) (test code = 354) CREATININE (BEAKER) 0.79 mg/dL 0.57-1.25 (test code = 358) GLUCOSE RANDOM 99 mg/dL 70-105 (BEAKER) (test code = 652) CALCIUM (BEAKER) 8.1 mg/dL 8.4-10.2 L (test code = 697) EGFR (BEAKER) (test 93 mL/min/1.73 ESTIMA LAI GFR IS code = 1092) sq m NOT ACCURATE CREATININE CLEARANCE IN PREDICTING GLOMERULAR FILTRATION RATE . ESTIMATED GFR I S NOT APPLICABLE FOR DIALYSIS PATIEN TS. Cut Off Saw Operator ID - DBCBC W/PLT COUNT & AUTO [id number] 05:47:00 Test Item Value Reference Range Interpretation Comments WHITE BLOOD CELL COUNT (BEAKER) 8.4 K/ L 3.5-10.5 (test code = 775) RED BLOOD CELL COUNT (BEAKER) 2.90 M/ L 4.63-6.08 L (test code = 761) HEMOGLOBIN (BEAKER) (test code = 8.9 GM/DL 13.7-17.5 L 410) HEMATOCRIT (BEAKER) (test code = 27.2 % 40.1-51.0 L 411) MEAN CORPUSCULAR VOLUME (BEAKER) 93.8 fL 79.0-92.2 H (test code = 753) MEAN CORPUSCULAR HEMOGLOBIN 30.7 pg 25.7-32.2 (BEAKER) (test code = 751) MEAN CORPUSCULAR HEMOGLOBIN CONC 32.7 GM/DL 32.3-36.5 (BEAKER) (test code = 752) RED CELL DISTRIBUTION WIDTH 13.7 % 11.6-14.4 (BEAKER) (test code = 412) PLATELET COUNT (BEAKER) (test 143 K/CU MM 150-450 L code = 756) MEAN PLATELET VOLUME (BEAKER) 9.8 fL 9.4-12.4 (test code = 754) NUCLEATED RED BLOOD CELLS 0 /100 WBC 0-0 (BEAKER) (test code = 413) NEUTROPHILS RELATIVE PERCENT 47 % (BEAKER) (test code = 429) LYMPHOCYTES RELATIVE PERCENT 37 % (BEAKER) (test code = 430) MONOCYTES RELATIVE PERCENT 9 % (BEAKER) (test code = 431) EOSINOPHILS RELATIVE PERCENT 6 % (BEAKER) (test code = 432) BASOPHILS RELATIVE PERCENT 1 % (BEAKER) (test code = 437) NEUTROPHILS ABSOLUTE COUNT 3.94 K/ L 1.78-5.38 (BEAKER) (test code = 670) LYMPHOCYTES ABSOLUTE COUNT 3.06 K/ L 1.32-3.57 (BEAKER) (test code = 414) MONOCYTES ABSOLUTE COUNT (BEAKER) 0.78 K/ L 0.30-0.82 (test code = 415) EOSINOPHILS ABSOLUTE COUNT 0.48 K/ L 0.04-0.54 (BEAKER) (test code = 416) BASOPHILS ABSOLUTE COUNT (BEAKER) 0.04 K/ L 0.01-0.08 (test code = 417) IMMATURE GRANULOCYTES-RELATIVE 1 % 0-1 PERCENT (BEAKER) (test code = 2801) POCT-GLUCOSE [id number] 21:02:00 Test Item Value Reference Range Interpretation Comments POC-GLUCOSE METER 143 mg/dL 70-110 H : TESTED A T [facility] 6720 (BEAKER) (test code = [facility], 1538) [address]: Cut Off Saw Operator/Techni sneha ID = [id number] for Eric Castrejon POCT-GLUCOSE [id number] 17:36:00 Test Item Value Reference Range Interpretation Comments POC-GLUCOSE METER 192 mg/dL 70-110 H : TESTED A T [facility] 6720 (BEAKER) (test code = [facility], 1538) [address]: Cut Off Saw Operator/Techni sneha ID = [id number] for Be noit, Kyaira POCT-GLUCOSE [id number] 11:10:00 Test Item Value Reference Range Interpretation Comments POC-GLUCOSE METER 106 mg/dL 70-110 : TESTED A T [facility] 6720 (BEAKER) (test code = [facility], 1538) [address]: Cut Off Saw Operator/Techni snhea ID = [id number] for Be noit, Kyaira POCT-GLUCOSE [id number] 09:57:00 Test Item Value Reference Range Interpretation Comments POC-GLUCOSE METER 110 mg/dL 70-110 : TESTED A T [facility] 6720 (BEAKER) (test code = [place], 1538) [address]: Cut Off Saw Operator/Techni sneha ID = [id number] for [place] MARCELLUS BRAND BASIC METABOLIC [id number] 06:42:00 Test Item Value Reference Range Interpretation Comments SODIUM (BEAKER) 137 meq/L 136-145 (test code = 381) POTASSIUM (BEAKER) 4.0 meq/L 3.5-5.1 (test code = 379) CHLORIDE (BEAKER) 105 meq/L 98-107 (test code = 382) CO2 (BEAKER) (test 23 meq/L 22-29 code = 355) BLOOD UREA NITROGEN 33 mg/dL 7-21 H (BEAKER) (test code = 354) CREATININE (BEAKER) 0.97 mg/dL 0.57-1.25 (test code = 358) GLUCOSE RANDOM 140 mg/dL 70-105 H (BEAKER) (test code = 652) CALCIUM (BEAKER) 7.8 mg/dL 8.4-10.2 L (test code = 697) EGFR (BEAKER) (test 74 mL/min/1.73 ESTIMA LAI GFR IS code = 1092) sq m NOT ACCURATE CREATININE CLEARANCE IN PREDICTING GLOMERULAR FILTRATION RATE . ESTIMATED GFR I S NOT APPLICABLE FOR DIALYSIS PATIEN TS. Cut Off Saw Operator ID - JANINA MCBC W/PLT COUNT & AUTO [id number] 05:40:00 Test Item Value Reference Range Interpretation Comments WHITE BLOOD CELL COUNT 7.7 K/ L 3.5-10.5 (BEAKER) (test code = 775) RED BLOOD CELL COUNT 2.94 M/ L 4.63-6.08 L (BEAKER) (test code = 761) HEMOGLOBIN (BEAKER) 9.0 GM/DL 13.7-17.5 L (test code = 410) HEMATOCRIT (BEAKER) 27.2 % 40.1-51.0 L (test code = 411) MEAN CORPUSCULAR 92.5 fL 79.0-92.2 H Discordant result VOLUME (BEAKER) (test compar ed to previous code = 753) result. Clinica l correlation req uired MEAN CORPUSCULAR 30.6 pg 25.7-32.2 HEMOGLOBIN (BEAKER) (test code = 751) MEAN CORPUSCULAR 33.1 GM/DL 32.3-36.5 HEMOGLOBIN CONC (BEAKER) (test code = 752) RED CELL DISTRIBUTION 14.1 % 11.6-14.4 WIDTH (BEAKER) (test code = 412) PLATELET COUNT 152 K/CU MM 150-450 (BEAKER) (test code = 756) MEAN PLATELET VOLUME 9.7 fL 9.4-12.4 (BEAKER) (test code = 754) NUCLEATED RED BLOOD 0 /100 WBC 0-0 CELLS (BEAKER) (test code = 413) NEUTROPHILS RELATIVE 56 % PERCENT (BEAKER) (test code = 429) LYMPHOCYTES RELATIVE 33 % PERCENT (BEAKER) (test code = 430) MONOCYTES RELATIVE 9 % PERCENT (BEAKER) (test code = 431) EOSINOPHILS RELATIVE 1 % PERCENT (BEAKER) (test code = 432) BASOPHILS RELATIVE 0 % PERCENT (BEAKER) (test code = 437) NEUTROPHILS ABSOLUTE 4.33 K/ L 1.78-5.38 COUNT (BEAKER) (test code = 670) LYMPHOCYTES ABSOLUTE 2.57 K/ L 1.32-3.57 COUNT (BEAKER) (test code = 414) MONOCYTES ABSOLUTE 0.69 K/ L 0.30-0.82 COUNT (BEAKER) (test code = 415) EOSINOPHILS ABSOLUTE 0.05 K/ L 0.04-0.54 COUNT (BEAKER) (test code = 416) BASOPHILS ABSOLUTE 0.02 K/ L 0.01-0.08 COUNT (BEAKER) (test code = 417) IMMATURE 1 % 0-1 GRANULOCYTES-RELATIVE PERCENT (BEAKER) (test code = 2801) POCT-GLUCOSE [id number] 21:41:00 Test Item Value Reference Range Interpretation Comments POC-GLUCOSE METER 125 mg/dL 70-110 H : TESTED A T [facility] 6720 (BEAKER) (test code = [place], 1538) [address]: Cut Off Saw Operator/Techni sneha ID = [id number] for Eric Castrejon RAD, CHEST, 1 VIEW, NON [id number] 18:08:00Reason for exam:- >wheezingShould this be performed at the bedside?->Yes [facility] : 1935 Sex: MFINAL REPORT TECHNIQUE: Frontal view of the chest. INDICATION: wheezing COMPARISON:09/14/2019. IMPRESSION:Lines and hardware: Stable.Heart and mediastinum: Stable.Lungs and pleura: Nofocal airspace consolidation. No pleural effusion. No pneumothorax.Soft tissues and bones: No acute abnormality. Signed: Alexandro Reagan Verified Date/Time: 10/07/2020 18:08:58 Reading Location: [address] Consult Reading Room POCT-GLUCOSE [id number] 17:08:00 Test Item Value Reference Range Interpretation Comments POC-GLUCOSE METER 136 mg/dL 70-110 H : TESTED A T [facility] 6720 ([facility]) (test code = [place], 1538) [address]: Cut Off Saw Operator/Techni sneha ID = [id number] for Estrada Kruse SARS-COV2/RT-PCR ([facility])2020-10-07 13:52:00 Test Item Value Reference Range Interpretation Comments SARS-COV2/RT-PCR (test Negative Not Detected, Negative, code = 3943572) See external report for linked test SARS-COV-2 PERFORMING LAB [facility] PATRICIA (test code = 2942151) Negative result for this test determines that SARS-CoV-2 RNA was not present in the specimen above the Limit of Detection (LOD). However, Negative results do not preclude SARS-CoV-2 infection and should not be used as the sole basis for treatment or patient management decisions. Negative results must be combined with clinical observations, patient history, and epidemiological information. A false negative result may occur if a specimen is improperly collected, transported or handled. A false negative result should be considered if patient's recent exposures or clinical presentation indicate that COVID-19 (SARS-CoV-2) is likely and diagnostic tests for other causes of illness are negative. Re-testing should be considered in cases of suspected false negatives.The limit of detection for this assay is 800 copies/mL.This SARS CoV-2 test is a real-time RT-PCR test intended for the qualitative detection of nucleic acid from SARS-CoV-2 in a nasopharyngeal swab specimen collected from individuals suspected of COVID-19 by their healthcare provider.This test has not been Food and Drug Administration (FDA) cleared or approved. This is a modified version of an approved Emergency Use Authorization (EUA) and is in the process of review by the FDA. Once authorized by the FDA, the issued EUA will be effective until the declaration that circumstances exist justifying the authorization of the emergency use ofin vitro diagnostic tests for detection and/or diagnosis of COVID-19 is terminated under Section 564(b)(2) of the Act or the EUA is revoked under Section 564(g) of the Act.Fact Sheet for Healthcare Prov iders:https://www.[employer]/sites/default/files/product/documents/Fact_Sheet_HC _Clejnlyci_Cqvd_IJXA-YwG-7.pdfFact Sheet for Healthcare Patients:https://www.[employer].Na[employer]x/sites/default/files/product/docume nts/Hrfk_Wnvbw_Bmqpueln_Ktaq_RGCZ-ZtV-9.pdfPerforming Laboratory:[facility], [place] [address]IPIY-AZLZAJL METER 2020-10-07 12:13:00 Test Item Value Reference Range Interpretation Comments POC-GLUCOSE METER 128 mg/dL 70-110 H : TESTED A T [facility] 6720 ([place]) (test code = [place] [facility], 1538) [address]: Cut Off Saw Operator/Techni sneha ID = [id number] for [place] BASIC METABOLIC [id number] 11:04:00 Test Item Value Reference Range Interpretation Comments SODIUM (BEAKER) 138 meq/L 136-145 (test code = 381) POTASSIUM (BEAKER) 4.4 meq/L 3.5-5.1 Specimen slightly (test code = 379) hemolyzed CHLORIDE (BEAKER) 108 meq/L 98-107 H (test code = 382) CO2 (BEAKER) (test 20 meq/L 22-29 L code = 355) BLOOD UREA NITROGEN 42 mg/dL 7-21 H (BEAKER) (test code = 354) CREATININE (BEAKER) 1.41 mg/dL 0.57-1.25 H Specimen slightly (test code = 358) hemolyzed GLUCOSE RANDOM 140 mg/dL 70-105 H (BEAKER) (test code = 652) CALCIUM (BEAKER) 7.6 mg/dL 8.4-10.2 L (test code = 697) EGFR (BEAKER) (test 48 mL/min/1.73 ESTIMA LAI GFR IS code = 1092) sq m NOT ACCURATE CREATININE CLEARANCE IN PREDICTING GLOMERULAR FILTRATION RATE . ESTIMATED GFR I S NOT APPLICABLE FOR DIALYSIS PATIEN TS. Cut Off Saw Operator ID - EDASIHEMOGLOBIN [id number] 10:53:00 Test Item Value Reference Range Interpretation Comments HEMOGLOBIN A1C (BEAKER) (test code = 6.2 % 4.3-6.1 H 368) HEPATIC FUNCTION [id number] 10:46:00 Test Item Value Reference Range Interpretation Comments TOTAL PROTEIN (BEAKER) 5.4 gm/dL 6.0-8.3 L Speci men slightly (test code = 770) hemolyzed ALBUMIN (BEAKER) (test 3.0 g/dL 3.5-5.0 L Speci men slightly code = 1145) hemolyzed BILIRUBIN TOTAL 0.3 mg/dL 0.2-1.2 Specimen sli ghtly (BEAKER) (test code = hemoly zed 377) BILIRUBIN DIRECT 0.1 mg/dL 0.1-0.5 Specimen sl ightly (BEAKER) (test code = hemoly zed 706) ALKALINE PHOSPHATASE 77 U/L 40-150 (BEAKER) (test code = 346) AST (SGOT) (BEAKER) 18 U/L 5-34 Specimen slightly (test code = 353) hemolyzed ALT (SGPT) (BEAKER) 14 U/L 6-55 Specimen slightly (test code = 347) hemolyzed Cut Off Saw Operator ID - EDASICBC W/PLT COUNT & AUTO [id number] 09:37:00 Test Item Value Reference Range Interpretation Comments WHITE BLOOD CELL COUNT (BEAKER) 12.6 K/ L 3.5-10.5 H (test code = 775) RED BLOOD CELL COUNT (BEAKER) 2.74 M/ L 4.63-6.08 L (test code = 761) HEMOGLOBIN (BEAKER) (test code = 8.5 GM/DL 13.7-17.5 L 410) HEMATOCRIT (BEAKER) (test code = 26.5 % 40.1-51.0 L 411) MEAN CORPUSCULAR VOLUME (BEAKER) 96.7 fL 79.0-92.2 H (test code = 753) MEAN CORPUSCULAR HEMOGLOBIN 31.0 pg 25.7-32.2 (BEAKER) (test code = 751) MEAN CORPUSCULAR HEMOGLOBIN CONC 32.1 GM/DL 32.3-36.5 L (BEAKER) (test code = 752) RED CELL DISTRIBUTION WIDTH 14.3 % 11.6-14.4 (BEAKER) (test code = 412) PLATELET COUNT (BEAKER) (test 189 K/CU MM 150-450 code = 756) MEAN PLATELET VOLUME (BEAKER) 9.9 fL 9.4-12.4 (test code = 754) NUCLEATED RED BLOOD CELLS 0 /100 WBC 0-0 (BEAKER) (test code = 413) NEUTROPHILS RELATIVE PERCENT 67 % (BEAKER) (test code = 429) LYMPHOCYTES RELATIVE PERCENT 22 % (BEAKER) (test code = 430) MONOCYTES RELATIVE PERCENT 9 % (BEAKER) (test code = 431) EOSINOPHILS RELATIVE PERCENT 1 % (BEAKER) (test code = 432) BASOPHILS RELATIVE PERCENT 0 % (BEAKER) (test code = 437) NEUTROPHILS ABSOLUTE COUNT 8.44 K/ L 1.78-5.38 H (BEAKER) (test code = 670) LYMPHOCYTES ABSOLUTE COUNT 2.82 K/ L 1.32-3.57 (BEAKER) (test code = 414) MONOCYTES ABSOLUTE COUNT (BEAKER) 1.16 K/ L 0.30-0.82 H (test code = 415) EOSINOPHILS ABSOLUTE COUNT 0.08 K/ L 0.04-0.54 (BEAKER) (test code = 416) BASOPHILS ABSOLUTE COUNT (BEAKER) 0.03 K/ L 0.01-0.08 (test code = 417) IMMATURE GRANULOCYTES-RELATIVE 1 % 0-1 PERCENT (BEAKER) (test code = 2801) POCT-GLUCOSE [id number] 20:59:00 Test Item Value Reference Range Interpretation Comments POC-GLUCOSE METER 174 mg/dL 70-110 H : TESTED A T [facility] 6720 ([place]) (test code = [place], 1538) [address]: Cut Off Saw Operator/Techni sneha ID = [id number] for SUZANNE MCGILL SARS-COV2/RT-PCR ([facility])2020-10-04 02:09:00 Test Item Value Reference Range Interpretation Comments SARS-COV2/RT-PCR (test Negative Not Detected, Negative, code = 1708365) See external report for linked test SARS-COV-2 PERFORMING LAB [facility] (test code = 4271627) Negative result for this test determines that SARS-CoV-2 RNA was not present in the specimen above the Limit of Detection (LOD). However, Negative results do not preclude SARS-CoV-2 infection and should not be used as the sole basis for treatment or patient management decisions. Negative results must be combined with clinical observations, patient history, and epidemiological information. A false negative result may occur if a specimen is improperly collected, transported or handled. A false negative result should be considered if patient's recent exposures or clinical presentation indicate that COVID-19 (SARS-CoV-2) is likely and diagnostic tests for other causes of illness are negative. Re-testing should be considered in cases of suspected false negatives.The limit of detection for this assay is 100 copies/mL.This SARS CoV-2 test is a real-time RT-PCR test intended for the qualitative detection of nucleic acid from SARS-CoV-2 in a nasopharyngeal swab specimen collected from individuals suspected of COVID-19 by their healthcare provider.This test has not been Food and Drug Administration (FDA) cleared or approved. This is a modified version of an approved Emergency Use Authorization (EUA) and is in the process of review by the FDA. Once authorized by the FDA, the issued EUA will be effective until the declaration that circumstances exist justifying the authorization of the emergency use ofin vitro diagnostic tests for detection and/or diagnosis of COVID-19 is terminated under Section 564(b)(2) of the Act or the EUA is revoked under Section 564(g) of the Act.Testing was performed using the [employer] SARS-CoV-2 assay.Fact Sheet for Healthcare Providers:https://www.[employer].LiveBuzz/stacey/RT_SAR W-RuE-9_VRH_Pzms_Fwzbc_59-096741.pdfFact Sheet for Healthcare Patients:https://www.[employer]/s al/DM_IAJF-EdE-9_Hvrkqii_Dbrz_Kwpyx_KQ_59-453852A6.pdfPerforming Laboratory:[address] [place] [address] BASIC METABOLIC [id number] 14:03:00 Test Item Value Reference Range Interpretation Comments SODIUM (BEAKER) 136 meq/L 136-145 (test code = 381) POTASSIUM (BEAKER) 4.7 meq/L 3.5-5.1 (test code = 379) CHLORIDE (BEAKER) 99 meq/L 98-107 (test code = 382) CO2 (BEAKER) (test 27 meq/L 22-29 code = 355) BLOOD UREA NITROGEN 17 mg/dL 7-21 (BEAKER) (test code = 354) CREATININE (BEAKER) 0.93 mg/dL 0.57-1.25 (test code = 358) GLUCOSE RANDOM 116 mg/dL 70-105 H (BEAKER) (test code = 652) CALCIUM (BEAKER) 9.2 mg/dL 8.4-10.2 (test code = 697) EGFR (BEAKER) (test 77 mL/min/1.73 ESTIMA LAI GFR IS code = 1092) sq m NOT ACCURATE CREATININE CLEARANCE IN PREDICTING GLOMERULAR FILTRATION RATE . ESTIMATED GFR I S NOT APPLICABLE FOR DIALYSIS PATIEN TS. Cut Off Saw Operator ID - JANINA MPROTHROMBIN TIME/[id number] 13:50:00 Test Item Value Reference Range Interpretation Comments PROTIME (BEAKER) 13.2 seconds 11.9-14.2 (test code = 759) INR (BEAKER) (test 1.03 See_Comment [Automat ed message] code = 370) The system whic h generated this result transmitted ref erence range: <=5.90. The reference range was not used to int erpret this result as normal/abnormal . Effective 12/30/2018: PT Reference Range ChangeNew: 11.9-14.2 Previous: 11.7- 14.7RECOMMENDED COUMADIN/WARFARIN INR THERAPY RANGESSTANDARD DOSE: 2.0-3.0 Includes: PROPHYLAXIS for venous thrombosis, systemic embolization; TREATMENT for venous thrombosis and/or pulmonary embolus.HIGH RISK: Target INR is 2.5-3.5 for patients wiht mechanical heart valves.CBC W/PLT COUNT & AUTO [id number] 13:43:00 Test Item Value Reference Range Interpretation Comments WHITE BLOOD CELL COUNT (BEAKER) 8.0 K/ L 3.5-10.5 (test code = 775) RED BLOOD CELL COUNT (BEAKER) 4.58 M/ L 4.63-6.08 L (test code = 761) HEMOGLOBIN (BEAKER) (test code = 13.9 GM/DL 13.7-17.5 410) HEMATOCRIT (BEAKER) (test code = 43.9 % 40.1-51.0 411) MEAN CORPUSCULAR VOLUME (BEAKER) 95.9 fL 79.0-92.2 H (test code = 753) MEAN CORPUSCULAR HEMOGLOBIN 30.3 pg 25.7-32.2 (BEAKER) (test code = 751) MEAN CORPUSCULAR HEMOGLOBIN CONC 31.7 GM/DL 32.3-36.5 L (BEAKER) (test code = 752) RED CELL DISTRIBUTION WIDTH 13.6 % 11.6-14.4 (BEAKER) (test code = 412) PLATELET COUNT (BEAKER) (test 244 K/CU MM 150-450 code = 756) MEAN PLATELET VOLUME (BEAKER) 8.9 fL 9.4-12.4 L (test code = 754) NUCLEATED RED BLOOD CELLS 0 /100 WBC 0-0 (BEAKER) (test code = 413) NEUTROPHILS RELATIVE PERCENT 56 % (BEAKER) (test code = 429) LYMPHOCYTES RELATIVE PERCENT 28 % (BEAKER) (test code = 430) MONOCYTES RELATIVE PERCENT 9 % (BEAKER) (test code = 431) EOSINOPHILS RELATIVE PERCENT 6 % (BEAKER) (test code = 432) BASOPHILS RELATIVE PERCENT 1 % (BEAKER) (test code = 437) NEUTROPHILS ABSOLUTE COUNT 4.51 K/ L 1.78-5.38 (BEAKER) (test code = 670) LYMPHOCYTES ABSOLUTE COUNT 2.21 K/ L 1.32-3.57 (BEAKER) (test code = 414) MONOCYTES ABSOLUTE COUNT (BEAKER) 0.73 K/ L 0.30-0.82 (test code = 415) EOSINOPHILS ABSOLUTE COUNT 0.47 K/ L 0.04-0.54 (BEAKER) (test code = 416) BASOPHILS ABSOLUTE COUNT (BEAKER) 0.05 K/ L 0.01-0.08 (test code = 417) IMMATURE GRANULOCYTES-RELATIVE 1 % 0-1 PERCENT (BEAKER) (test code = 2801) SARS-COV2/RT-PCR ([facility])2020-03-16 16:35:00 Test Item Value Reference Range Interpretation Comments SARS-COV2/RT-PCR (test Negative Not Detected, Negative, code = 5351902) See external report for linked test SARS-COV-2 PERFORMING LAB [facility] (test code = 1871069) Negative result for this test determines that SARS-CoV-2 RNA was not present in the specimen above the Limit of Detection (LOD). However, Negative results do not preclude SARS-CoV-2 infection and should not be used as the sole basis for treatment or patient management decisions. Negative results must be combined with clinical observations, patient history, and epidemiological information. A false negative result may occur if a specimen is improperly collected, transported or handled. A false negative result should be considered if patient's recent exposures or clinical presentation indicate that COVID-19 (SARS-CoV-2) is likely and diagnostic tests for other causes of illness are negative. Re-testing should be considered in cases of suspected false negatives.The limit of detection for this assay is 800 copies/mL.This SARS CoV-2 test is a real-time RT-PCR test intended for the qualitative detection of nucleic acid from SARS-CoV-2 in a nasopharyngeal swab specimen collected from individuals suspected of COVID-19 by their healthcare provider.This test has not been Food and Drug Administration (FDA) cleared or approved. This is a modified version of an approved Emergency Use Authorization (EUA) and is in the process of review by the FDA. Once authorized by the FDA, the issued EUA will be effective until the declaration that circumstances exist justifying the authorization of the emergency use ofin vitro diagnostic tests for detection and/or diagnosis of COVID-19 is terminated under Section 564(b)(2) of the Act or the EUA is revoked under Section 564(g) of the Act.Fact Sheet for Healthcare Prov iders:https://www.[employer]/sites/default/files/product/documents/Fact_Sheet_HC _Qshwzygqm_Brae_NWZW-RwW-5.pdfFact Sheet for Healthcare Patients:https://www.[employer]/sites/default/files/product/docume nts/Aolt_Gxliq_Bipfslca_Cdbn_WSDM-JeC-7.pdfPerforming Laboratory:[facility], [place] [address]ZWKHR METABOLIC PANEL 2020-03-16 11:52:00 Test Item Value Reference Range Interpretation Comments SODIUM (BEAKER) 140 meq/L 136-145 (test code = 381) POTASSIUM (BEAKER) 4.4 meq/L 3.5-5.1 (test code = 379) CHLORIDE (BEAKER) 105 meq/L 98-107 (test code = 382) CO2 (BEAKER) (test 27 meq/L 22-29 code = 355) BLOOD UREA NITROGEN 16 mg/dL 7-21 (BEAKER) (test code = 354) CREATININE (BEAKER) 0.91 mg/dL 0.57-1.25 (test code = 358) GLUCOSE RANDOM 104 mg/dL 70-105 (BEAKER) (test code = 652) CALCIUM (BEAKER) 9.6 mg/dL 8.4-10.2 (test code = 697) EGFR (BEAKER) (test 79 mL/min/1.73 ESTIMA LAI GFR IS code = 1092) sq m NOT ACCURATE CREATININE CLEARANCE IN PREDICTING GLOMERULAR FILTRATION RATE . ESTIMATED GFR I S NOT APPLICABLE FOR DIALYSIS PATIEN TS. Cut Off Saw Operator ID - LEEANNA FCBC W/PLT COUNT & AUTO [id number] 11:33:00 Test Item Value Reference Range Interpretation Comments WHITE BLOOD CELL COUNT (BEAKER) 7.8 K/ L 3.5-10.5 (test code = 775) RED BLOOD CELL COUNT (BEAKER) 4.60 M/ L 4.63-6.08 L (test code = 761) HEMOGLOBIN (BEAKER) (test code = 13.3 GM/DL 13.7-17.5 L 410) HEMATOCRIT (BEAKER) (test code = 43.0 % 40.1-51.0 411) MEAN CORPUSCULAR VOLUME (BEAKER) 93.5 fL 79.0-92.2 H (test code = 753) MEAN CORPUSCULAR HEMOGLOBIN 28.9 pg 25.7-32.2 (BEAKER) (test code = 751) MEAN CORPUSCULAR HEMOGLOBIN CONC 30.9 GM/DL 32.3-36.5 L (BEAKER) (test code = 752) RED CELL DISTRIBUTION WIDTH 14.0 % 11.6-14.4 (BEAKER) (test code = 412) PLATELET COUNT (BEAKER) (test 230 K/CU MM 150-450 code = 756) MEAN PLATELET VOLUME (BEAKER) 8.7 fL 9.4-12.4 L (test code = 754) NUCLEATED RED BLOOD CELLS 0 /100 WBC 0-0 (BEAKER) (test code = 413) NEUTROPHILS RELATIVE PERCENT 50 % (BEAKER) (test code = 429) LYMPHOCYTES RELATIVE PERCENT 33 % (BEAKER) (test code = 430) MONOCYTES RELATIVE PERCENT 9 % (BEAKER) (test code = 431) EOSINOPHILS RELATIVE PERCENT 7 % (BEAKER) (test code = 432) BASOPHILS RELATIVE PERCENT 1 % (BEAKER) (test code = 437) NEUTROPHILS ABSOLUTE COUNT 3.88 K/ L 1.78-5.38 (BEAKER) (test code = 670) LYMPHOCYTES ABSOLUTE COUNT 2.55 K/ L 1.32-3.57 (BEAKER) (test code = 414) MONOCYTES ABSOLUTE COUNT (BEAKER) 0.71 K/ L 0.30-0.82 (test code = 415) EOSINOPHILS ABSOLUTE COUNT 0.57 K/ L 0.04-0.54 H (BEAKER) (test code = 416) BASOPHILS ABSOLUTE COUNT (BEAKER) 0.04 K/ L 0.01-0.08 (test code = 417) IMMATURE GRANULOCYTES-RELATIVE 0 % 0-1 PERCENT (BEAKER) (test code = 2801) [id number] 11:09:00 Test Item Value Reference Range Interpretation Comments ACTIVATED CLOTTING TIME 356 sec : 74 -137 seconds, (BEAKER) (test code = Belk[place] ne: TESTED AT 441) [facility] [address] [facility] [place], [address]: Cut Off Saw Operator/Techni sneha ID = [id number] for TIAN FITZGERALD TISSUE [id number] 17:00:00Surgical Pathology Report Case: [id number] Authorizing Provider: Jaki Richard MD Collected: 09/10/2019 0909 Ordering Location: [facility] Received: 09/10/2019 1122 PERIOPERATIVE SERVICES Pathologist: Janine Morrow MD Specimen: Leg, Right, RIGHT ABK LEG RIGHT LEG, ABOVE KNEE AMPUTATION: - ISCHEMIC NECROSIS WITH ULCERS ON THE DIGITS AND FOOT, MULTIPLE - DEVITALIZED BONE UNDERNEATH HALLUX - SKIN AND SOFT TISSUE MARGINS EN-FACE, VIABLE - BONE AT THE MARGIN, VIABLE - FEMORAL ARTERY AT THE MARGIN WITH ATHEROSCLEROSIS WITH CALCIFICATION, 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 Extending from the soft tissue margin is a 6 cm inlength transected femur. The foot length is 29 cm from heel to tip of second digit. The hallux is absent. Digits 2-4 are present.Located where the hallux once was on the lateral surface of both the dorsal and plantar surfaces is a 12 x 5.5 x 2.3 cm mummified ulcer surrounded by red discolored tissue with slippage. Digit #4 on the dorsal surface displays a 1 x 1 x 0.2 cm ulcer, and the tip of digit #5is mummified and also has a 1 x 0.7 x 0.2 cm blackened ulcer. There is another blackened, hyperkeratotic, mummified area on the lateral foot measuring 3 x 1 x 0.1 cm. There is significant skin slippageon the heel. The remaining skin on the foot is pink-rios, discolored and scaly. The mummified ulcer is greater than 20 cm from both the skin, soft tissue and bone margins. The remaining skin of the legis [place] and smooth. The anterior surface of the thigh is inscribed with "yes CHRISTINA 09/10/19". On the anterior surface of the thigh is a 14 cm linear scar extending over the knee. There is knee hardware present and a focal area of rios discoloration adjacent to the femoral component. 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 The remaining arteries are unremarkable. Patient Day Coordinator sections are submitted.Section code: A1-A2, entire bone margin, en face, bisected, following decalcificationA3, bone from hallux, following decalcificationA4, customer service representative teacher of ulcers from footA5, femoral artery margin en face and skin and soft tissue margin en face, following decalcification A6, customer service representative teacher of anterior and posterior tibial arteries and discolored tissue around knee hardware CG/ewPERFORMEDPOCT-GLUCOSE METER 2019-09-15 13:34:00 Test Item Value Reference Range Interpretation Comments POC-GLUCOSE METER 204 mg/dL 70-110 H : TESTED A T [facility] 6720 (BEAKER) (test code = [facility], 1538) [address]: Cut Off Saw Operator/Techni sneha ID = [id number] for CONTRERAS GALICIA POCT-GLUCOSE [id number] 08:13:00 Test Item Value Reference Range Interpretation Comments POC-GLUCOSE METER 207 mg/dL 70-110 H : TESTED A T [facility] 6720 (BEAKER) (test code = [facility], 1538) [address]: Cut Off Saw Operator/Techni sneha ID = [id number] for CONTRERAS GALICIA BASIC METABOLIC [id number] 05:53:00 Test Item Value Reference Range Interpretation Comments SODIUM (BEAKER) 132 meq/L 136-145 L (test code = 381) POTASSIUM (BEAKER) 3.9 meq/L 3.5-5.1 (test code = 379) CHLORIDE (BEAKER) 92 meq/L 98-107 L (test code = 382) CO2 (BEAKER) (test 29 meq/L 22-29 code = 355) BLOOD UREA NITROGEN 13 mg/dL 7-21 (BEAKER) (test code = 354) CREATININE (BEAKER) 0.77 mg/dL 0.57-1.25 (test code = 358) GLUCOSE RANDOM 141 mg/dL 70-105 H (BEAKER) (test code = 652) CALCIUM (BEAKER) 8.6 mg/dL 8.4-10.2 (test code = 697) EGFR (BEAKER) (test 96 mL/min/1.73 ESTIMA LAI GFR IS code = 1092) sq m NOT ACCURATE CREATININE CLEARANCE IN PREDICTING GLOMERULAR FILTRATION RATE . ESTIMATED GFR I S NOT APPLICABLE FOR DIALYSIS PATIEN TS. Cut Off Saw Operator ID - GALAPCBC W/PLT COUNT & AUTO [id number] 05:30:00 Test Item Value Reference Range Interpretation Comments WHITE BLOOD CELL COUNT (BEAKER) 16.1 K/ L 3.5-10.5 H (test code = 775) RED BLOOD CELL COUNT (BEAKER) 3.25 M/ L 4.63-6.08 L (test code = 761) HEMOGLOBIN (BEAKER) (test code = 9.5 GM/DL 13.7-17.5 L 410) HEMATOCRIT (BEAKER) (test code = 29.0 % 40.1-51.0 L 411) MEAN CORPUSCULAR VOLUME (BEAKER) 89.2 fL 79.0-92.2 (test code = 753) MEAN CORPUSCULAR HEMOGLOBIN 29.2 pg 25.7-32.2 (BEAKER) (test code = 751) MEAN CORPUSCULAR HEMOGLOBIN CONC 32.8 GM/DL 32.3-36.5 (BEAKER) (test code = 752) RED CELL DISTRIBUTION WIDTH 15.4 % 11.6-14.4 H (BEAKER) (test code = 412) PLATELET COUNT (BEAKER) (test 410 K/CU MM 150-450 code = 756) MEAN PLATELET VOLUME (BEAKER) 8.8 fL 9.4-12.4 L (test code = 754) NUCLEATED RED BLOOD CELLS 0 /100 WBC 0-0 (BEAKER) (test code = 413) NEUTROPHILS RELATIVE PERCENT 71 % (BEAKER) (test code = 429) LYMPHOCYTES RELATIVE PERCENT 18 % (BEAKER) (test code = 430) MONOCYTES RELATIVE PERCENT 8 % (BEAKER) (test code = 431) EOSINOPHILS RELATIVE PERCENT 2 % (BEAKER) (test code = 432) BASOPHILS RELATIVE PERCENT 0 % (BEAKER) (test code = 437) NEUTROPHILS ABSOLUTE COUNT 11.41 K/ L 1.78-5.38 H (BEAKER) (test code = 670) LYMPHOCYTES ABSOLUTE COUNT 2.86 K/ L 1.32-3.57 (BEAKER) (test code = 414) MONOCYTES ABSOLUTE COUNT (BEAKER) 1.22 K/ L 0.30-0.82 H (test code = 415) EOSINOPHILS ABSOLUTE COUNT 0.35 K/ L 0.04-0.54 (BEAKER) (test code = 416) BASOPHILS ABSOLUTE COUNT (BEAKER) 0.05 K/ L 0.01-0.08 (test code = 417) IMMATURE GRANULOCYTES-RELATIVE 1 % 0-1 PERCENT (BEAKER) (test code = 2801) RAD, CHEST, 1 VIEW, NON [id number] 02:43:00Reason for exam:->worsening leukocytosis-check for acute pulm processShould this be performed at the bedside?->YesFINAL REPORT RAD, CHEST, 1 VIEW, NON DEPT INDICATION: worsening leukocytosis-check for acute pulm process COMPARISON: August 14, 2019 FINDINGS: Portable frontal view of the chest.IMPRESSION: Left chest ICD is stable. Minimal peripheral reticular opacities are reduced, possibly representing fibrosis or residual interstitial disease. No detrimental interval change. Cardiomediastinal silhouette is within normal limits. No large pleural effusion or pneumothorax. Osseous structuresare stable. Signed: Josr Maldonado MDReport Verified Date/Time: 09/15/2019 02:43:26 POCT-GLUCOSE [id number] 21:36:00 Test Item Value Reference Range Interpretation Comments POC-GLUCOSE METER 163 mg/dL 70-110 H : TESTED A T [facility] 6720 (BEAKER) (test code = [place], 1538) [address]: Cut Off Saw Operator/Techni sneha ID = [id number] for TRACEY WILLIAM POCT-GLUCOSE [id number] 18:16:00 Test Item Value Reference Range Interpretation Comments POC-GLUCOSE METER 122 mg/dL 70-110 H : TESTED A T [facility] 6720 (BEAKER) (test code = [place] [facility], 1538) [address]: Cut Off Saw Operator/Techni sneha ID = [id number] for DALILA ELIZONDO POCT-GLUCOSE [id number] 13:28:00 Test Item Value Reference Range Interpretation Comments POC-GLUCOSE METER 169 mg/dL 70-110 H : TESTED A T [facility] 6720 (BEAKER) (test code = [facility], 1538) [address]: Cut Off Saw Operator/Techni sneha ID = [id number] for LISANDRO Zafar VASYL (CELLAVISION MANUAL DIFF)2019-09-14 10:53:00 Test Item Value Reference Range Interpretation Comments NEUTROPHILS - REL 79 % (CELLAVISION)(BEAKER) (test code = 2816) LYMPHOCYTES - REL 11 % (CELLAVISION)(BEAKER) (test code = 2817) MONOCYTES - REL 8 % (CELLAVISION)(BEAKER) (test code = 2818) EOSINOPHILS - REL 1 % (CELLAVISION)(BEAKER) (test code = 2819) BANDS - REL (CELLAVISION)(BEAKER) 1 % 0-10 (test code = 2826) NEUTROPHILS - ABS 17.93 K/ul 1.78-5.38 H (CELLAVISION)(BEAKER) (test code = 2830) LYMPHOCYTES - ABS 2.50 K/ul 1.32-3.57 (CELLAVISION)(BEAKER) (test code = 2831) MONOCYTES - ABS 1.82 K/uL 0.30-0.82 H (CELLAVISION)(BEAKER) (test code = 2832) EOSINOPHILS - ABS 0.23 K/uL 0.04-0.54 (CELLAVISION)(BEAKER) (test code = 2834) BANDS - ABS (CELLAVISION)(BEAKER) 0.23 K/uL 0.00-0.80 (test code = 2840) TOTAL COUNTED (BEAKER) (test code 100 = 1351) WBC MORPHOLOGY (BEAKER) (test code Normal = 487) PLT MORPHOLOGY (BEAKER) (test code Normal = 486) POLYCHROMATOPHILLIC RBCS(BEAKER) 1+ few (test code = 478) ANISOCYTOSIS (BEAKER) (test code = 1+ few 961) MICROCYTES (BEAKER) (test code = 1+ few 965) PLATELET CONCENTRATION Increased (CELLAVISION)(BEAKER) (test code = 3438) Cut Off Saw Operator ID - Kat OverholtUser comments: Slide comments:CBC W/PLT COUNT & AUTO [id number] 10:53:00 Test Item Value Reference Range Interpretation Comments WHITE BLOOD CELL COUNT (BEAKER) 22.7 K/ L 3.5-10.5 H (test code = 775) RED BLOOD CELL COUNT (BEAKER) 3.40 M/ L 4.63-6.08 L (test code = 761) HEMOGLOBIN (BEAKER) (test code = 9.7 GM/DL 13.7-17.5 L 410) HEMATOCRIT (BEAKER) (test code = 30.5 % 40.1-51.0 L 411) MEAN CORPUSCULAR VOLUME (BEAKER) 89.7 fL 79.0-92.2 (test code = 753) MEAN CORPUSCULAR HEMOGLOBIN 28.5 pg 25.7-32.2 (BEAKER) (test code = 751) MEAN CORPUSCULAR HEMOGLOBIN CONC 31.8 GM/DL 32.3-36.5 L (BEAKER) (test code = 752) RED CELL DISTRIBUTION WIDTH 15.6 % 11.6-14.4 H (BEAKER) (test code = 412) PLATELET COUNT (BEAKER) (test 453 K/CU MM 150-450 H code = 756) MEAN PLATELET VOLUME (BEAKER) 9.1 fL 9.4-12.4 L (test code = 754) NUCLEATED RED BLOOD CELLS 0 /100 WBC 0-0 (BEAKER) (test code = 413) POCT-GLUCOSE [id number] 08:57:00 Test Item Value Reference Range Interpretation Comments POC-GLUCOSE METER 142 mg/dL 70-110 H : TESTED A T [facility] 6720 (BEAKER) (test code = [place], 1538) [address]: Cut Off Saw Operator/Techni sneha ID = [id number] for VASYL ORTIZ [id number] 06:51:00 Test Item Value Reference Range Interpretation Comments MAGNESIUM (BEAKER) (test code = 2.2 mg/dL 1.6-2.6 627) Cut Off Saw Operator ID - JANINA MBASIC METABOLIC [id number] 06:02:00 Test Item Value Reference Range Interpretation Comments SODIUM (BEAKER) 137 meq/L 136-145 (test code = 381) POTASSIUM (BEAKER) 2.8 meq/L 3.5-5.1 L (test code = 379) CHLORIDE (BEAKER) 94 meq/L 98-107 L (test code = 382) CO2 (BEAKER) (test 31 meq/L 22-29 H code = 355) BLOOD UREA NITROGEN 17 mg/dL 7-21 (BEAKER) (test code = 354) CREATININE (BEAKER) 0.77 mg/dL 0.57-1.25 (test code = 358) GLUCOSE RANDOM 116 mg/dL 70-105 H (BEAKER) (test code = 652) CALCIUM (BEAKER) 8.8 mg/dL 8.4-10.2 (test code = 697) EGFR (BEAKER) (test 96 mL/min/1.73 ESTIMA LAI GFR IS code = 1092) sq m NOT ACCURATE CREATININE CLEARANCE IN PREDICTING GLOMERULAR FILTRATION RATE . ESTIMATED GFR I S NOT APPLICABLE FOR DIALYSIS PATIEN TS. Cut Off Saw Operator ID - GALAPU/S, RENAL, [id number] 03:06:00Reason for exam:- >gross hematuriaFINAL REPORT Renal ultrasound dated 09/13/2019 CLINICAL HISTORY: Hematuria COMPARISON: None Comment: Real-time transabdominal renal ultrasound was performed. Right kidney measures 12.2 x 5.7 x 6.0 cm. Left kidney measures 12.2 x 7.0 x 5.5 cm. Right renal cortex measures 1.6 cm. Left renal cortex measures 1.6 cm. Renal parenchymal echogenicity: Normal No hydronephrosis, definite nephrolithiasis or solid mass is seen. No cyst is identified on either kidney. Doppler ultrasound demonstrates a patent main renal artery and vein bilaterally. A Odom catheter decompresses the urinary bladder. Impression: No ultrasound abnormality to explain the patient's hematuria. Evaluation with hematuria protocol CT can be considered, as indicated. Signed: Andreas Chavis MDReport Verified Date/Time:09/14/2019 03:06:52 [facility] [id number] 01:00:00 Test Item Value Reference Range Interpretation Comments CULTURE (BEAKER) (test No growth in 5 days code = 1095) BLOOD [id number] 01:00:00 Test Item Value Reference Range Interpretation Comments CULTURE (BEAKER) (test No growth in 5 days code = 1095) POCT-GLUCOSE [id number] 22:04:00 Test Item Value Reference Range Interpretation Comments POC-GLUCOSE METER 179 mg/dL 70-110 H : TESTED A T [facility] 6720 (BEAKER) (test code = [facility], 1538) [address]: Cut Off Saw Operator/Techni sneha ID = [id number] for TRACEY WILLIAM POCT-GLUCOSE [id number] 18:41:00 Test Item Value Reference Range Interpretation Comments POC-GLUCOSE METER 194 mg/dL 70-110 H : TESTED A T [facility] 6720 (BEAKER) (test code = [facility], 1538) [address]: Cut Off Saw Operator/Techni sneha ID = [id number] for JESÚS BAL POCT-GLUCOSE [id number] 15:05:00 Test Item Value Reference Range Interpretation Comments POC-GLUCOSE METER 193 mg/dL 70-110 H : TESTED A T [facility] 6720 (BEAKER) (test code = [facility], 1538) [address]: Cut Off Saw Operator/Techni sneha ID = [id number] for VASYL ORTIZ CBC W/PLT COUNT & AUTO [id number] 11:13:00 Test Item Value Reference Range Interpretation Comments WHITE BLOOD CELL COUNT (BEAKER) 15.6 K/ L 3.5-10.5 H (test code = 775) RED BLOOD CELL COUNT (BEAKER) 3.56 M/ L 4.63-6.08 L (test code = 761) HEMOGLOBIN (BEAKER) (test code = 10.3 GM/DL 13.7-17.5 L 410) HEMATOCRIT (BEAKER) (test code = 31.9 % 40.1-51.0 L 411) MEAN CORPUSCULAR VOLUME (BEAKER) 89.6 fL 79.0-92.2 (test code = 753) MEAN CORPUSCULAR HEMOGLOBIN 28.9 pg 25.7-32.2 (BEAKER) (test code = 751) MEAN CORPUSCULAR HEMOGLOBIN CONC 32.3 GM/DL 32.3-36.5 (BEAKER) (test code = 752) RED CELL DISTRIBUTION WIDTH 15.1 % 11.6-14.4 H (BEAKER) (test code = 412) PLATELET COUNT (BEAKER) (test 479 K/CU MM 150-450 H code = 756) MEAN PLATELET VOLUME (BEAKER) 9.0 fL 9.4-12.4 L (test code = 754) NUCLEATED RED BLOOD CELLS 0 /100 WBC 0-0 (BEAKER) (test code = 413) (CELLAVISION MANUAL DIFF)2019-09-13 11:13:00 Test Item Value Reference Range Interpretation Comments NEUTROPHILS - REL 76 % (CELLAVISION)(BEAKER) (test code = 2816) LYMPHOCYTES - REL 11 % (CELLAVISION)(BEAKER) (test code = 2817) MONOCYTES - REL 7 % (CELLAVISION)(BEAKER) (test code = 2818) EOSINOPHILS - REL 2 % (CELLAVISION)(BEAKER) (test code = 2819) METAMYELOCYTES - REL 1 % 0-0 H (CELLAVISION)(BEAKER) (test code = 2821) MYELOCYTES - REL 1 % 0-0 H (CELLAVISION)(BEAKER) (test code = 2822) ATYPICAL LYMPHOCYTES - REL 2 % 0-0 H (CELLAVISION)(BEAKER) (test code = 2829) NEUTROPHILS - ABS 11.86 K/ul 1.78-5.38 H (CELLAVISION)(BEAKER) (test code = 2830) LYMPHOCYTES - ABS 1.72 K/ul 1.32-3.57 (CELLAVISION)(BEAKER) (test code = 2831) MONOCYTES - ABS 1.09 K/uL 0.30-0.82 H (CELLAVISION)(BEAKER) (test code = 2832) EOSINOPHILS - ABS 0.31 K/uL 0.04-0.54 (CELLAVISION)(BEAKER) (test code = 2834) METAMYELOCYTES - ABS 0.16 K/uL 0.00-0.00 H (CELLAVISION)(BEAKER) (test code = 2836) MYELOCYTES-ABS 0.16 K/uL 0.00-0.00 H (CELLAVISION)(BEAKER) (test code = 2837) ATYPICAL LYMPHOCYTES - ABS 0.31 K/uL 0.00-0.00 H (CELLAVISION)(BEAKER) (test code = 2858) TOTAL COUNTED (BEAKER) (test code 100 = 1351) SMUDGE CELLS (BEAKER) (test code = Present 1371) GIANT PLATELETS (BEAKER) (test Present code = 313) POLYCHROMATOPHILLIC RBCS(BEAKER) 1+ few (test code = 478) ANISOCYTOSIS (BEAKER) (test code = 1+ few 961) PLATELET CONCENTRATION Adequate (CELLAVISION)(BEAKER) (test code = 3438) Cut Off Saw Operator ID - Kassandra Valdez comments: Slide comments:POCT-GLUCOSE METER 2019-09-13 08:17:00 Test Item Value Reference Range Interpretation Comments POC-GLUCOSE METER 177 mg/dL 70-110 H : TESTED A T [facility] 6720 (BEAKER) (test code = [facility] Y[facility], 1538) [address]: Cut Off Saw Operator/Techni sneha ID = [id number] for VASYL ORTIZ BASIC METABOLIC [id number] 08:14:00 Test Item Value Reference Range Interpretation Comments SODIUM (BEAKER) 136 meq/L 136-145 (test code = 381) POTASSIUM (BEAKER) 3.6 meq/L 3.5-5.1 (test code = 379) CHLORIDE (BEAKER) 93 meq/L 98-107 L (test code = 382) CO2 (BEAKER) (test 31 meq/L 22-29 H code = 355) BLOOD UREA NITROGEN 14 mg/dL 7-21 (BEAKER) (test code = 354) CREATININE (BEAKER) 0.80 mg/dL 0.57-1.25 (test code = 358) GLUCOSE RANDOM 129 mg/dL 70-105 H (BEAKER) (test code = 652) CALCIUM (BEAKER) 9.2 mg/dL 8.4-10.2 (test code = 697) EGFR (BEAKER) (test 92 mL/min/1.73 ESTIMA LAI GFR IS code = 1092) sq m NOT ACCURATE CREATININE CLEARANCE IN PREDICTING GLOMERULAR FILTRATION RATE . ESTIMATED GFR I S NOT APPLICABLE FOR DIALYSIS PATIEN TS. Cut Off Saw Operator ID - HIREN CPOCT-GLUCOSE [id number] 21:35:00 Test Item Value Reference Range Interpretation Comments POC-GLUCOSE METER 192 mg/dL 70-110 H : TESTED A T [facility] 6720 (BEAKER) (test code = [facility], 1538) 64033: Cut Off Saw Operator/Techni sneha ID = [id number] for Estela Costa POCT-GLUCOSE [id number] 18:17:00 Test Item Value Reference Range Interpretation Comments POC-GLUCOSE METER 135 mg/dL 70-110 H : TESTED A T [facility] 6720 (BEAKER) (test code = [facility], 1538) 70377: Cut Off Saw Operator/Techni sneha ID = [id number] for POPPY FERNÁNDEZ POCT-GLUCOSE [id number] 12:33:00 Test Item Value Reference Range Interpretation Comments POC-GLUCOSE METER 160 mg/dL 70-110 H : TESTED A T [facility] 6720 (BEAKER) (test code = [facility], 1538) 62023: Cut Off Saw Operator/Techni sneha ID = [id number] for POPPY FERNÁNDEZ BASIC METABOLIC [id number] 10:53:00 Test Item Value Reference Range Interpretation Comments SODIUM (BEAKER) 133 meq/L 136-145 L (test code = 381) POTASSIUM (BEAKER) 3.2 meq/L 3.5-5.1 L (test code = 379) CHLORIDE (BEAKER) 92 meq/L 98-107 L (test code = 382) CO2 (BEAKER) (test 31 meq/L 22-29 H code = 355) BLOOD UREA NITROGEN 13 mg/dL 7-21 (BEAKER) (test code = 354) CREATININE (BEAKER) 0.80 mg/dL 0.57-1.25 (test code = 358) GLUCOSE RANDOM 155 mg/dL 70-105 H (BEAKER) (test code = 652) CALCIUM (BEAKER) 8.5 mg/dL 8.4-10.2 (test code = 697) EGFR (BEAKER) (test 92 mL/min/1.73 ESTIMA LAI GFR IS code = 1092) sq m NOT ACCURATE CREATININE CLEARANCE IN PREDICTING GLOMERULAR FILTRATION RATE . ESTIMATED GFR I S NOT APPLICABLE FOR DIALYSIS PATIEN TS. Cut Off Saw Operator ID - LEEANNA FCBC W/PLT COUNT & AUTO [id number] 10:38:00 Test Item Value Reference Range Interpretation Comments WHITE BLOOD CELL COUNT (BEAKER) 11.3 K/ L 3.5-10.5 H (test code = 775) RED BLOOD CELL COUNT (BEAKER) 3.23 M/ L 4.63-6.08 L (test code = 761) HEMOGLOBIN (BEAKER) (test code = 9.6 GM/DL 13.7-17.5 L 410) HEMATOCRIT (BEAKER) (test code = 28.2 % 40.1-51.0 L 411) MEAN CORPUSCULAR VOLUME (BEAKER) 87.3 fL 79.0-92.2 (test code = 753) MEAN CORPUSCULAR HEMOGLOBIN 29.7 pg 25.7-32.2 (BEAKER) (test code = 751) MEAN CORPUSCULAR HEMOGLOBIN CONC 34.0 GM/DL 32.3-36.5 (BEAKER) (test code = 752) RED CELL DISTRIBUTION WIDTH 15.1 % 11.6-14.4 H (BEAKER) (test code = 412) PLATELET COUNT (BEAKER) (test 369 K/CU MM 150-450 code = 756) MEAN PLATELET VOLUME (BEAKER) 8.6 fL 9.4-12.4 L (test code = 754) NUCLEATED RED BLOOD CELLS 0 /100 WBC 0-0 (BEAKER) (test code = 413) NEUTROPHILS RELATIVE PERCENT 69 % (BEAKER) (test code = 429) LYMPHOCYTES RELATIVE PERCENT 19 % (BEAKER) (test code = 430) MONOCYTES RELATIVE PERCENT 9 % (BEAKER) (test code = 431) EOSINOPHILS RELATIVE PERCENT 1 % (BEAKER) (test code = 432) BASOPHILS RELATIVE PERCENT 0 % (BEAKER) (test code = 437) NEUTROPHILS ABSOLUTE COUNT 7.82 K/ L 1.78-5.38 H (BEAKER) (test code = 670) LYMPHOCYTES ABSOLUTE COUNT 2.12 K/ L 1.32-3.57 (BEAKER) (test code = 414) MONOCYTES ABSOLUTE COUNT (BEAKER) 1.06 K/ L 0.30-0.82 H (test code = 415) EOSINOPHILS ABSOLUTE COUNT 0.09 K/ L 0.04-0.54 (BEAKER) (test code = 416) BASOPHILS ABSOLUTE COUNT (BEAKER) 0.04 K/ L 0.01-0.08 (test code = 417) IMMATURE GRANULOCYTES-RELATIVE 1 % 0-1 PERCENT (BEAKER) (test code = 2801) POCT-GLUCOSE [id number] 08:35:00 Test Item Value Reference Range Interpretation Comments POC-GLUCOSE METER 152 mg/dL 70-110 H : TESTED A T [facility] 6720 (BEAKER) (test code = [place] [facility], 1538) [address]: Cut Off Saw Operator/Techni sneha ID = [id number] for Elana JACQUES [id number] 06:18:00 Test Item Value Reference Range Interpretation Comments FERRITIN (BEAKER) (test code = 1039 ng/mL 5-275 H 361) Cut Off Saw Operator ID - MAEVE BAUTISTA, TIBC, % SAT. (WITHOUT FERRITIN)2019-09-12 05:56:00 Test Item Value Reference Range Interpretation Comments IRON (BEAKER) (test code = 547) 33.0 ug/dL 40.0-160.0 L TOTAL IRON BINDING CAPACITY 183 ug/dL 250-450 L (BEAKER) (test code = 769) IRON % SATURATION (2) (BEAKER) 18 % 20-55 L (test code = 2590) Cut Off Saw Operator ID - MAEVE WPOCT-GLUCOSE [id number] 21:38:00 Test Item Value Reference Range Interpretation Comments POC-GLUCOSE METER 170 mg/dL 70-110 H : TESTED A T [facility] (BEAKER) (test code = [place] [facility], 1538) [address]: Cut Off Saw Operator/Techni sneha ID = [id number] for Estela Costa POCT-GLUCOSE [id number] 18:21:00 Test Item Value Reference Range Interpretation Comments POC-GLUCOSE METER 152 mg/dL 70-110 H : Notified RN/MD: TESTED (BEAKER) [facility] [address] [address] = 1538[facility], [address]: Cut Off Saw Operator/Techni sneha ID = [id number] for RUBY LANDIN POCT-GLUCOSE [id number] 08:45:00 Test Item Value Reference Range Interpretation Comments POC-GLUCOSE METER 146 mg/dL 70-110 H : Notified RN/MD: TESTED (BEAKER) (test code AT [facility] [address] = 1538) [facility], [address]: Cut Off Saw Operator/Techni sneha ID = [id number] for RUBY LANDIN [id number] 07:25:00 Test Item Value Reference Range Interpretation Comments MAGNESIUM (BEAKER) (test code = 1.8 mg/dL 1.6-2.6 627) Cut Off Saw Operator ID - AL LBASIC METABOLIC [id number] 07:25:00 Test Item Value Reference Range Interpretation Comments SODIUM (BEAKER) 136 meq/L 136-145 (test code = 381) POTASSIUM (BEAKER) 3.3 meq/L 3.5-5.1 L (test code = 379) CHLORIDE (BEAKER) 99 meq/L 98-107 (test code = 382) CO2 (BEAKER) (test 28 meq/L 22-29 code = 355) BLOOD UREA NITROGEN 15 mg/dL 7-21 (BEAKER) (test code = 354) CREATININE (BEAKER) 0.80 mg/dL 0.57-1.25 (test code = 358) GLUCOSE RANDOM 138 mg/dL 70-105 H (BEAKER) (test code = 652) CALCIUM (BEAKER) 8.9 mg/dL 8.4-10.2 (test code = 697) EGFR (BEAKER) (test 92 mL/min/1.73 ESTIMA LAI GFR IS code = 1092) sq m NOT ACCURATE CREATININE CLEARANCE IN PREDICTING GLOMERULAR FILTRATION RATE . ESTIMATED GFR I S NOT APPLICABLE FOR DIALYSIS PATIEN TS. Cut Off Saw Operator ID - AL LPROTHROMBIN TIME/[id number] 06:34:00 Test Item Value Reference Range Interpretation Comments PROTIME (BEAKER) (test code = 14.5 seconds 11.9-14.2 H 759) INR (BEAKER) (test code = 370) 1.2 <=5.9 Effective 12/30/2018: PT Reference Range ChangeNew: 11.9-14.2 Previous: 11.7- 14.7RECOMMENDED COUMADIN/WARFARIN INR THERAPY RANGESSTANDARD DOSE: 2.0-3.0 Includes: PROPHYLAXIS for venous thrombosis, systemic embolization; TREATMENT for venous thrombosis and/or pulmonary embolus.HIGH RISK: Target INR is 2.5-3.5 for patients wiht mechanical heart valves.CBC (HEMOGRAM ONLY)2019-09-11 06:21:00 Test Item Value Reference Range Interpretation Comments WHITE BLOOD CELL COUNT (BEAKER) 13.4 K/ L 3.5-10.5 H (test code = 775) RED BLOOD CELL COUNT (BEAKER) 2.61 M/ L 4.63-6.08 L (test code = 761) HEMOGLOBIN (BEAKER) (test code = 7.6 GM/DL 13.7-17.5 L 410) HEMATOCRIT (BEAKER) (test code = 23.4 % 40.1-51.0 L 411) MEAN CORPUSCULAR VOLUME (BEAKER) 89.7 fL 79.0-92.2 (test code = 753) MEAN CORPUSCULAR HEMOGLOBIN 29.1 pg 25.7-32.2 (BEAKER) (test code = 751) MEAN CORPUSCULAR HEMOGLOBIN CONC 32.5 GM/DL 32.3-36.5 (BEAKER) (test code = 752) RED CELL DISTRIBUTION WIDTH 15.1 % 11.6-14.4 H (BEAKER) (test code = 412) PLATELET COUNT (BEAKER) (test 407 K/CU MM 150-450 code = 756) MEAN PLATELET VOLUME (BEAKER) 8.7 fL 9.4-12.4 L (test code = 754) NUCLEATED RED BLOOD CELLS 0 /100 WBC 0-0 (BEAKER) (test code = 413) POCT-GLUCOSE [id number] 21:15:00 Test Item Value Reference Range Interpretation Comments POC-GLUCOSE METER 210 mg/dL 70-110 H : TESTED A T [facility] ([facility]) (test code = [facility], 153) [address]: Cut Off Saw Operator/Techni sneha ID = [id number] for Estela Costa VANCOMYCIN LEVEL, [id number] 14:21:00 Test Item Value Reference Range Interpretation Comments VANCOMYCIN TROUGH (BEAKER) (test 13.1 ug/mL 10.0-20.0 code = 522) Cut Off Saw Operator ID - HIREN CPOCT-GLUCOSE [id number] 14:17:00 Test Item Value Reference Range Interpretation Comments POC-GLUCOSE METER 160 mg/dL 70-110 H : TESTED A T [facility] ([facility]) (test code = [facility], 153) [address]: Cut Off Saw Operator/Techni sneha ID = [id number] for MAIKEL ESPAÑA HEMOGLOBIN AND [id number] 10:43:00 Test Item Value Reference Range Interpretation Comments HEMOGLOBIN (BEAKER) (test code = 10.5 g/dL 13.0-16.8 L 410) HEMATOCRIT (BEAKER) (test code = 31.0 % 40.0-50.0 L 411) [id number] 07:23:00 Test Item Value Reference Range Interpretation Comments MAGNESIUM (BEAKER) (test code = 1.7 mg/dL 1.6-2.6 627) Cut Off Saw Operator ID - JANINA MBASIC METABOLIC [id number] 07:23:00 Test Item Value Reference Range Interpretation Comments SODIUM (BEAKER) 136 meq/L 136-145 (test code = 381) POTASSIUM (BEAKER) 3.1 meq/L 3.5-5.1 L (test code = 379) CHLORIDE (BEAKER) 96 meq/L 98-107 L (test code = 382) CO2 (BEAKER) (test 30 meq/L 22-29 H code = 355) BLOOD UREA NITROGEN 11 mg/dL 7-21 (BEAKER) (test code = 354) CREATININE (BEAKER) 0.80 mg/dL 0.57-1.25 (test code = 358) GLUCOSE RANDOM 96 mg/dL 70-105 (BEAKER) (test code = 652) CALCIUM (BEAKER) 9.1 mg/dL 8.4-10.2 (test code = 697) EGFR (BEAKER) (test 92 mL/min/1.73 ESTIMA LAI GFR IS code = 1092) sq m NOT ACCURATE CREATININE CLEARANCE IN PREDICTING GLOMERULAR FILTRATION RATE . ESTIMATED GFR I S NOT APPLICABLE FOR DIALYSIS PATIEN TS. Cut Off Saw Operator ID - JANINA MPROTHROMBIN [id number] 06:16:00 Test Item Value Reference Range Interpretation Comments PROTIME (BEAKER) (test code = 14.6 seconds 11.9-14.2 H 759) INR (BEAKER) (test code = 370) 1.2 <=5.9 Effective 12/30/2018: PT Reference Range ChangeNew: 11.9-14.2 Previous: 11.7- 14.7RECOMMENDED COUMADIN/WARFARIN INR THERAPY RANGESSTANDARD DOSE: 2.0-3.0 Includes: PROPHYLAXIS for venous thrombosis, systemic embolization; TREATMENT for venous thrombosis and/or pulmonary embolus.HIGH RISK: Target INR is 2.5-3.5 for patients wiht mechanical heart valves.CBC (HEMOGRAM ONLY)2019-09-10 05:58:00 Test Item Value Reference Range Interpretation Comments WHITE BLOOD CELL COUNT (BEAKER) 8.9 K/ L 3.5-10.5 (test code = 775) RED BLOOD CELL COUNT (BEAKER) 3.17 M/ L 4.63-6.08 L (test code = 761) HEMOGLOBIN (BEAKER) (test code = 9.1 GM/DL 13.7-17.5 L 410) HEMATOCRIT (BEAKER) (test code = 28.5 % 40.1-51.0 L 411) MEAN CORPUSCULAR VOLUME (BEAKER) 89.9 fL 79.0-92.2 (test code = 753) MEAN CORPUSCULAR HEMOGLOBIN 28.7 pg 25.7-32.2 (BEAKER) (test code = 751) MEAN CORPUSCULAR HEMOGLOBIN CONC 31.9 GM/DL 32.3-36.5 L (BEAKER) (test code = 752) RED CELL DISTRIBUTION WIDTH 15.2 % 11.6-14.4 H (BEAKER) (test code = 412) PLATELET COUNT (BEAKER) (test 370 K/CU MM 150-450 code = 756) MEAN PLATELET VOLUME (BEAKER) 8.6 fL 9.4-12.4 L (test code = 754) NUCLEATED RED BLOOD CELLS 0 /100 WBC 0-0 (BEAKER) (test code = 413) POCT-GLUCOSE [id number] 21:32:00 Test Item Value Reference Range Interpretation Comments POC-GLUCOSE METER 150 mg/dL 70-110 H : TESTED A T [facility] 6720 (BEAKER) (test code = [facility], 1538) [address]: Cut Off Saw Operator/Techni sneha ID = [id number] for ANDREW SHANTAL TRACEY POCT-GLUCOSE [id number] 17:05:00 Test Item Value Reference Range Interpretation Comments POC-GLUCOSE METER 126 mg/dL 70-110 H : TESTED A T [facility] 6720 (BEAKER) (test code = [place] [facility], 1538) [address]: Cut Off Saw Operator/Techni sneha ID = [id number] for VASYL ORTIZ POCT-GLUCOSE [id number] 13:35:00 Test Item Value Reference Range Interpretation Comments POC-GLUCOSE METER 123 mg/dL 70-110 H : TESTED A T [facility] 6720 (BEAKER) (test code = [facility] [place] [facility], 1538) [address]: Cut Off Saw Operator/Techni sneha ID = [id number] for VASYL ORTIZ POCT-GLUCOSE [id number] 08:35:00 Test Item Value Reference Range Interpretation Comments POC-GLUCOSE METER 91 mg/dL 70-110 : TESTED A T [facility] 6720 (BEAKER) (test code = [facility], 1538) [address]: Cut Off Saw Operator/Techni sneha ID = [id number] for VASYL CHOPRA PROTHROMBIN [id number] 02:09:00 Test Item Value Reference Range Interpretation Comments PROTIME (BEAKER) (test code = 15.1 seconds 11.9-14.2 H 759) INR (BEAKER) (test code = 370) 1.2 <=5.9 Effective 12/30/2018: PT Reference Range ChangeNew: 11.9-14.2 Previous: 11.7- 14.7RECOMMENDED COUMADIN/WARFARIN INR THERAPY RANGESSTANDARD DOSE: 2.0-3.0 Includes: PROPHYLAXIS for venous thrombosis, systemic embolization; TREATMENT for venous thrombosis and/or pulmonary embolus.HIGH RISK: Target INR is 2.5-3.5 for patients wiht mechanical heart valves.[id number] 02:00:00 Test Item Value Reference Range Interpretation Comments PROCALCITONIN (BEAKER) (test code = < ng/mL <0.05 3036) SEPSIS RISK (ng/mL)Low: 0.05-0.50Intermediate: 0.51-2.00High: >=2.01MAGNESIUM 2019-09-09 01:55:00 Test Item Value Reference Range Interpretation Comments MAGNESIUM (BEAKER) (test code = 1.6 mg/dL 1.6-2.6 627) Cut Off Saw Operator ID - PIAYA LBLOOD GAS, [id number] 01:50:00 Test Item Value Reference Range Interpretation Comments PH VENOUS (BEAKER) (test code = 7.49 7.32-7.42 H 701) PCO2 VENOUS (BEAKER) (test code = 43 mmHg 41-51 755) PO2 VENOUS (BEAKER) (test code = 47 mmHg 25-40 H 702) O2 SATURATION VENOUS (BEAKER) 85.8 % 40.0-70.0 H (test code = 703) HCO3 VENOUS (BEAKER) (test code = 32 mmol/L 21-29 H 705) BASE EXCESS VENOUS (BEAKER) (test 7.7 mmol/L -2.0-3.0 H code = 704) PATIENT TEMPERATURE (BEAKER) (test 37.0 C code = 1818) FIO2 (BEAKER) (test code = 1819) 21.0 % TROPONIN [id number] 00:16:00 Test Item Value Reference Range Interpretation Comments TROPONIN I (BEAKER) (test code = 0.02 ng/mL 0.00-0.03 397) Troponin I (TnI) levels must be interpreted [...] failure, acidosis, acute neurological disease, and persistent tachyarrhythmia.Cut Off Saw Operator ID - DBCOMPREHENSIVE METABOLIC [id number] 00:10:00 Test Item Value Reference Range Interpretation Comments TOTAL PROTEIN 6.5 gm/dL 6.0-8.3 (BEAKER) (test code = 770) ALBUMIN (BEAKER) 3.3 g/dL 3.5-5.0 L (test code = 1145) ALKALINE PHOSPHATASE 123 U/L 40-150 (BEAKER) (test code = 346) BILIRUBIN TOTAL 0.6 mg/dL 0.2-1.2 (BEAKER) (test code = 377) SODIUM (BEAKER) (test 134 meq/L 136-145 L code = 381) POTASSIUM (BEAKER) 3.3 meq/L 3.5-5.1 L (test code = 379) CHLORIDE (BEAKER) 94 meq/L 98-107 L (test code = 382) CO2 (BEAKER) (test 28 meq/L 22-29 code = 355) BLOOD UREA NITROGEN 10 mg/dL 7-21 (BEAKER) (test code = 354) CREATININE (BEAKER) 0.85 mg/dL 0.57-1.25 (test code = 358) GLUCOSE RANDOM 117 mg/dL 70-105 H (BEAKER) (test code = 652) CALCIUM (BEAKER) 8.7 mg/dL 8.4-10.2 (test code = 697) AST (SGOT) (BEAKER) 24 U/L 5-34 (test code = 353) ALT (SGPT) (BEAKER) 24 U/L 6-55 (test code = 347) EGFR (BEAKER) (test 86 mL/min/1.73 ESTIMA LAI GFR IS code = 1092) sq m NOT ACCURATE CREATININE CLEARANCE IN PREDICTING GLOMERULAR FILTRATION RATE . ESTIMATED GFR I S NOT APPLICABLE FOR DIALYSIS PATIEN TS. Cut Off Saw Operator ID - DBC-REACTIVE [id number] 00:10:00 Test Item Value Reference Range Interpretation Comments C-REACTIVE PROTEIN (BEAKER) (test 14.55 mg/dL 0.00-0.50 H code = 676) Cut Off Saw Operator ID - DBLACTIC ACID, [id number] 00:03:00 Test Item Value Reference Range Interpretation Comments LACTATE BLOOD VENOUS (2) (BEAKER) 1.2 mmol/L 0.5-2.2 (test code = 2872) Cut Off Saw Operator ID - DBPROTHROMBIN [id number] 00:00:00 Test Item Value Reference Range Interpretation Comments PROTIME (BEAKER) (test code = 14.5 seconds 11.9-14.2 H 759) INR (BEAKER) (test code = 370) 1.2 <=5.9 Effective 12/30/2018: PT Reference Range ChangeNew: 11.9-14.2 Previous: 11.7- 14.7RECOMMENDED COUMADIN/WARFARIN INR THERAPY RANGESSTANDARD DOSE: 2.0-3.0 Includes: PROPHYLAXIS for venous thrombosis, systemic embolization; TREATMENT for venous thrombosis and/or pulmonary embolus.HIGH RISK: Target INR is 2.5-3.5 for patients wiht mechanical heart valves.CBC W/PLT COUNT & AUTO [id number] 23:52:00 Test Item Value Reference Range Interpretation Comments WHITE BLOOD CELL COUNT (BEAKER) 10.4 K/ L 3.5-10.5 (test code = 775) RED BLOOD CELL COUNT (BEAKER) 3.16 M/ L 4.63-6.08 L (test code = 761) HEMOGLOBIN (BEAKER) (test code = 9.2 GM/DL 13.7-17.5 L 410) HEMATOCRIT (BEAKER) (test code = 28.6 % 40.1-51.0 L 411) MEAN CORPUSCULAR VOLUME (BEAKER) 90.5 fL 79.0-92.2 (test code = 753) MEAN CORPUSCULAR HEMOGLOBIN 29.1 pg 25.7-32.2 (BEAKER) (test code = 751) MEAN CORPUSCULAR HEMOGLOBIN CONC 32.2 GM/DL 32.3-36.5 L (BEAKER) (test code = 752) RED CELL DISTRIBUTION WIDTH 15.5 % 11.6-14.4 H (BEAKER) (test code = 412) PLATELET COUNT (BEAKER) (test 357 K/CU MM 150-450 code = 756) MEAN PLATELET VOLUME (BEAKER) 8.6 fL 9.4-12.4 L (test code = 754) NUCLEATED RED BLOOD CELLS 0 /100 WBC 0-0 (BEAKER) (test code = 413) NEUTROPHILS RELATIVE PERCENT 67 % (BEAKER) (test code = 429) LYMPHOCYTES RELATIVE PERCENT 17 % (BEAKER) (test code = 430) MONOCYTES RELATIVE PERCENT 10 % (BEAKER) (test code = 431) EOSINOPHILS RELATIVE PERCENT 4 % (BEAKER) (test code = 432) BASOPHILS RELATIVE PERCENT 0 % (BEAKER) (test code = 437) NEUTROPHILS ABSOLUTE COUNT 6.99 K/ L 1.78-5.38 H (BEAKER) (test code = 670) LYMPHOCYTES ABSOLUTE COUNT 1.81 K/ L 1.32-3.57 (BEAKER) (test code = 414) MONOCYTES ABSOLUTE COUNT (BEAKER) 1.08 K/ L 0.30-0.82 H (test code = 415) EOSINOPHILS ABSOLUTE COUNT 0.36 K/ L 0.04-0.54 (BEAKER) (test code = 416) BASOPHILS ABSOLUTE COUNT (BEAKER) 0.04 K/ L 0.01-0.08 (test code = 417) IMMATURE GRANULOCYTES-RELATIVE 1 % 0-1 PERCENT (BEAKER) (test code = 2801) AFB CULTURE + SMEAR (NON-SPUTUM)2019-09-07 17:21:00 Test Item Value Reference Range Interpretation Comments CULTURE (BEAKER) (test No acid-fast bacilli code = 1095) isolated in 42 days AFB SMEAR (BEAKER) No acid fast bacilli (test code = 994) seen AFB CULTURE + SMEAR (NON-SPUTUM)2019-09-07 17:21:00 Test Item Value Reference Range Interpretation Comments CULTURE (BEAKER) (test No acid-fast bacilli code = 1095) isolated in 42 days AFB SMEAR (BEAKER) No acid fast bacilli (test code = 994) seen POCT-GLUCOSE [id number] 12:22:00 Test Item Value Reference Range Interpretation Comments POC-GLUCOSE METER 131 mg/dL 70-110 H : TESTED A T [facility] 6720 (BEAKER) (test code = [facility], 1538) [address]: Cut Off Saw Operator/Techni sneha ID = [id number] for HU NTER, HIWITHA POCT-GLUCOSE [id number] 07:26:00 Test Item Value Reference Range Interpretation Comments POC-GLUCOSE METER 118 mg/dL 70-110 H : TESTED A T [facility] 6720 (BEAKER) (test code = [facility], 153) [address]: Cut Off Saw Operator/Techni sneha ID = [id number] for HU NTER, HIWITHA POCT-GLUCOSE [id number] 22:02:00 Test Item Value Reference Range Interpretation Comments POC-GLUCOSE METER 140 mg/dL 70-110 H : TESTED A T [facility] 6720 (BEAKER) (test code = [facility], 1538) [address]: Cut Off Saw Operator/Techni sneha ID = [id number] for RO LIA, JAE POCT-GLUCOSE [id number] 17:42:00 Test Item Value Reference Range Interpretation Comments POC-GLUCOSE METER 111 mg/dL 70-110 H : TESTED A T [facility] 6720 (BEAKER) (test code = [facility], 153) [address]: Cut Off Saw Operator/Techni sneha ID = [id number] for RU FISHER POCT-GLUCOSE [id number] 13:16:00 Test Item Value Reference Range Interpretation Comments POC-GLUCOSE METER 187 mg/dL 70-110 H : TESTED A T [facility] 6720 ([facility]) (test code = [facility], 153) [address]: Cut Off Saw Operator/Techni sneha ID = [id number] for MT HEALY, JOHNIE POCT-GLUCOSE [id number] 13:11:00 Test Item Value Reference Range Interpretation Comments POC-GLUCOSE METER 178 mg/dL 70-110 H : TESTED A T [facility] ([facility]) (test code = [facility], 153) [address]: Cut Off Saw Operator/Techni sneha ID = [id number] for RAYMOND ORTIZT POCT-GLUCOSE [id number] 08:15:00 Test Item Value Reference Range Interpretation Comments POC-GLUCOSE METER 119 mg/dL 70-110 H : TESTED A T [facility] ([facility]) (test code = [facility], 153) [address]: Cut Off Saw Operator/Techni sneha ID = [id number] for MT RIN, JOHNIE POCT-GLUCOSE [id number] 22:25:00 Test Item Value Reference Range Interpretation Comments POC-GLUCOSE METER 145 mg/dL 70-110 H : [facility] (test code = [facility], 153) [address]: Cut Off Saw Operator/Techni sneha ID = [id number] for RO LIA, JAE POCT-GLUCOSE [id number] 17:05:00 Test Item Value Reference Range Interpretation Comments POC-GLUCOSE METER 131 mg/dL 70-110 H : Notified RN/MD: (ELSA) (test code = TESTED AT [place] [address] 1537) [facility], [address]: Cut Off Saw Operator/Techni sneha ID = [id number] for TH OMAS, COSHA POCT-GLUCOSE [id number] 11:30:00 Test Item Value Reference Range Interpretation Comments POC-GLUCOSE METER 228 mg/dL 70-110 H : Notified RN/MD: (ELSA) (test code = TESTED AT [place] [id number] 1537) [facility], [address]: Cut Off Saw Operator/Techni sneha ID = [id number] for TH OMAS, COSHA POCT-GLUCOSE [id number] 08:36:00 Test Item Value Reference Range Interpretation Comments POC-GLUCOSE METER 104 mg/dL 70-110 : Notified RN/MD: ([facility]) (test code = TESTED AT [place] [address] 1537) [facility], [address]: Cut Off Saw Operator/Techni sneha ID = [id number] for OPAL HANKINS COSHA POCT-GLUCOSE [id number] 21:37:00 Test Item Value Reference Range Interpretation Comments POC-GLUCOSE METER 121 mg/dL 70-110 H : [facility] (test code = [facility], 153) [address]: Cut Off Saw Operator/Techni sneha ID = [id number] for WE NZY, EPEKA POCT-GLUCOSE [id number] 16:59:00 Test Item Value Reference Range Interpretation Comments POC-GLUCOSE METER 106 mg/dL 70-110 : [facility] (test code = [facility], 153) [address]: Cut Off Saw Operator/Techni sneha ID = [id number] for KIZHAKEKATTIL, CHUYITA POCT-GLUCOSE [id number] 09:44:00 Test Item Value Reference Range Interpretation Comments POC-GLUCOSE METER 73 mg/dL 70-110 : [facility] (test code = [facility], 153) [address]: Cut Off Saw Operator/Techni sneha ID = [id number] for KIZHAKEKATTIL, CHUYITA POCT-GLUCOSE [id number] 21:41:00 Test Item Value Reference Range Interpretation Comments POC-GLUCOSE METER 101 mg/dL 70-110 : [facility] (test code = [facility], 153) [address]: Cut Off Saw Operator/Techni sneha ID = [id number] for BRENDA NZY, EPEKA POCT-GLUCOSE [id number] 18:00:00 Test Item Value Reference Range Interpretation Comments POC-GLUCOSE METER 87 mg/dL 70-110 : [facility] (test code = [facility], 153) 53066: Cut Off Saw Operator/Techni sneha ID = [id number] for KIZHAKEKATTIL, CHUYITA POCT-GLUCOSE [id number] 12:44:00 Test Item Value Reference Range Interpretation Comments POC-GLUCOSE METER 219 mg/dL 70-110 H : TESTED A T [facility] 6720 (BEAKER) (test code = [facility], 1538) 33879: Cut Off Saw Operator/Techni sneha ID = [id number] for CHUYITA BOSE POCT-GLUCOSE [id number] 07:50:00 Test Item Value Reference Range Interpretation Comments POC-GLUCOSE METER 89 mg/dL 70-110 : TESTED A T [facility] 6720 (BEAKER) (test code = [facility], 1538) 90406: Cut Off Saw Operator/Techni sneha ID = [id number] for CHUYITA BOSE POCT-GLUCOSE [id number] 21:23:00 Test Item Value Reference Range Interpretation Comments POC-GLUCOSE METER 98 mg/dL 70-110 : TESTED A T [facility] 6720 (BEAKER) (test code = [facility], 1538) 91494: Cut Off Saw Operator/Techni sneha ID = [id number] for HUNG ODONNELLA POCT-GLUCOSE [id number] 18:38:00 Test Item Value Reference Range Interpretation Comments POC-GLUCOSE METER 122 mg/dL 70-110 H : TESTED A T [facility] 6720 (BEAKER) (test code = [facility], 1538) 91689: Cut Off Saw Operator/Techni sneha ID = [id number] for ORTIZ LE BASIC METABOLIC [id number] 11:52:00 Test Item Value Reference Range Interpretation Comments SODIUM (BEAKER) 136 meq/L 136-145 (test code = 381) POTASSIUM (BEAKER) 3.4 meq/L 3.5-5.1 L (test code = 379) CHLORIDE (BEAKER) 93 meq/L 98-107 L (test code = 382) CO2 (BEAKER) (test 32 meq/L 22-29 H code = 355) BLOOD UREA NITROGEN 16 mg/dL 7-21 (BEAKER) (test code = 354) CREATININE (BEAKER) 0.91 mg/dL 0.57-1.25 (test code = 358) GLUCOSE RANDOM 216 mg/dL 70-105 H (BEAKER) (test code = 652) CALCIUM (BEAKER) 8.8 mg/dL 8.4-10.2 (test code = 697) EGFR (BEAKER) (test 80 mL/min/1.73 ESTIMA LAI GFR IS code = 1092) sq m NOT ACCURATE CREATININE CLEARANCE IN PREDICTING GLOMERULAR FILTRATION RATE . ESTIMATED GFR I S NOT APPLICABLE FOR DIALYSIS PATIEN TS. Cut Off Saw Operator ID - JANINA MPOCT-GLUCOSE [id number] 11:42:00 Test Item Value Reference Range Interpretation Comments POC-GLUCOSE METER 218 mg/dL 70-110 H : TESTED A T [facility] 6720 ([facility]) (test code = [facility], 1538) 31632: Cut Off Saw Operator/Techni sneha ID = [id number] for TIFFANY MOJICA POCT-GLUCOSE [id number] 08:38:00 Test Item Value Reference Range Interpretation Comments POC-GLUCOSE METER 111 mg/dL 70-110 H : TESTED A T [facility] 6720 ([facility]) (test code = [facility], 1538) 09644: Cut Off Saw Operator/Techni sneha ID = [id number] for ALEXANDERZEUS TRUJILLOE POCT-GLUCOSE [id number] 20:49:00 Test Item Value Reference Range Interpretation Comments POC-GLUCOSE METER 111 mg/dL 70-110 H : TESTED A T [facility] 6720 ([facility]) (test code = [facility], 1538) 48624: Cut Off Saw Operator/Techni sneha ID = [id number] for RO LIA, JAE POCT-GLUCOSE [id number] 17:11:00 Test Item Value Reference Range Interpretation Comments POC-GLUCOSE METER 128 mg/dL 70-110 H : TESTED A T [facility] 6720 ([facility]) (test code = [facility] [facility] 1538) [address]: Cut Off Saw Operator/Techni sneha ID = [id number] for OJ JAMIA, MADONNA POCT-GLUCOSE [id number] 16:30:00 Test Item Value Reference Range Interpretation Comments POC-GLUCOSE METER 245 mg/dL 70-110 H : TESTED A T [facility] 6720 (Ushahidi) (test code = [facility], 1538) 77822: Cut Off Saw Operator/Techni sneha ID = [id number] for OJ JAMIA, MADONNA POCT-GLUCOSE [id number] 08:38:00 Test Item Value Reference Range Interpretation Comments POC-GLUCOSE METER 111 mg/dL 70-110 H : TESTED A T [facility] 6720 (BEAKER) (test code = [facility], 1538) 69333: Cut Off Saw Operator/Techni sneha ID = [id number] for OJ JAMIA, MADONNA POCT-GLUCOSE [id number] 20:42:00 Test Item Value Reference Range Interpretation Comments POC-GLUCOSE METER 143 mg/dL 70-110 H : TESTED A T [facility] 6720 (BEAKER) (test code = [facility], 1538) 62600: Cut Off Saw Operator/Techni sneha ID = [id number] for RO LIA, JAE POCT-GLUCOSE [id number] 17:12:00 Test Item Value Reference Range Interpretation Comments POC-GLUCOSE METER 79 mg/dL 70-110 : TESTED A T [facility] 6720 (BEAKER) (test code = [facility], 1538) 60174: Cut Off Saw Operator/Techni sneha ID = [id number] for OJED A, MADONNA POCT-GLUCOSE [id number] 13:01:00 Test Item Value Reference Range Interpretation Comments POC-GLUCOSE METER 147 mg/dL 70-110 H : TESTED A T [facility] 6720 (BEAKER) (test code = [facility], 1538) 07540: Cut Off Saw Operator/Techni sneha ID = [id number] for OJ JAMIA, MADONNA POCT-GLUCOSE [id number] 09:28:00 Test Item Value Reference Range Interpretation Comments POC-GLUCOSE METER 96 mg/dL 70-110 : TESTED A T [facility] 6720 (BEAKER) (test code = [facility], 1538) 96061: Cut Off Saw Operator/Techni sneha ID = [id number] for JESSE CHANCE COMPREHENSIVE METABOLIC [id number] 01:14:00 Test Item Value Reference Range Interpretation Comments TOTAL PROTEIN 5.9 gm/dL 6.0-8.3 L (BEAKER) (test code = 770) ALBUMIN (BEAKER) 3.2 g/dL 3.5-5.0 L (test code = 1145) ALKALINE PHOSPHATASE 120 U/L 40-150 (BEAKER) (test code = 346) BILIRUBIN TOTAL 0.5 mg/dL 0.2-1.2 (BEAKER) (test code = 377) SODIUM (BEAKER) (test 134 meq/L 136-145 L code = 381) POTASSIUM (BEAKER) 3.8 meq/L 3.5-5.1 (test code = 379) CHLORIDE (BEAKER) 96 meq/L 98-107 L (test code = 382) CO2 (BEAKER) (test 31 meq/L 22-29 H code = 355) BLOOD UREA NITROGEN 24 mg/dL 7-21 H (BEAKER) (test code = 354) CREATININE (BEAKER) 0.96 mg/dL 0.57-1.25 (test code = 358) GLUCOSE RANDOM 108 mg/dL 70-105 H (BEAKER) (test code = 652) CALCIUM (BEAKER) 8.7 mg/dL 8.4-10.2 (test code = 697) AST (SGOT) (BEAKER) 19 U/L 5-34 (test code = 353) ALT (SGPT) (BEAKER) 14 U/L 6-55 (test code = 347) EGFR (BEAKER) (test 75 mL/min/1.73 ESTIMA LAI GFR IS code = 1092) sq m NOT ACCURATE CREATININE CLEARANCE IN PREDICTING GLOMERULAR FILTRATION RATE . ESTIMATED GFR I S NOT APPLICABLE FOR DIALYSIS PATIEN TS. Cut Off Saw Operator ID - [id number] 01:13:00 Test Item Value Reference Range Interpretation Comments PROTIME (BEAKER) (test code = 14.3 seconds 11.9-14.2 H 759) INR (BEAKER) (test code = 370) 1.1 <=5.9 Effective 12/30/2018: PT Reference Range ChangeNew: 11.9-14.2 Previous: 11.7- 14.7RECOMMENDED COUMADIN/WARFARIN INR THERAPY RANGESSTANDARD DOSE: 2.0-3.0 Includes: PROPHYLAXIS for venous thrombosis, systemic embolization; TREATMENT for venous thrombosis and/or pulmonary embolus.HIGH RISK: Target INR is 2.5-3.5 for patients wiht mechanical heart valves.CBC W/PLT COUNT & AUTO [id number] 00:54:00 Test Item Value Reference Range Interpretation Comments WHITE BLOOD CELL COUNT (BEAKER) 8.1 K/ L 3.5-10.5 (test code = 775) RED BLOOD CELL COUNT (BEAKER) 2.58 M/ L 4.63-6.08 L (test code = 761) HEMOGLOBIN (BEAKER) (test code = 8.0 GM/DL 13.7-17.5 L 410) HEMATOCRIT (BEAKER) (test code = 23.9 % 40.1-51.0 L 411) MEAN CORPUSCULAR VOLUME (BEAKER) 92.6 fL 79.0-92.2 H (test code = 753) MEAN CORPUSCULAR HEMOGLOBIN 31.0 pg 25.7-32.2 (BEAKER) (test code = 751) MEAN CORPUSCULAR HEMOGLOBIN CONC 33.5 GM/DL 32.3-36.5 (BEAKER) (test code = 752) RED CELL DISTRIBUTION WIDTH 17.1 % 11.6-14.4 H (BEAKER) (test code = 412) PLATELET COUNT (BEAKER) (test 239 K/CU MM 150-450 code = 756) MEAN PLATELET VOLUME (BEAKER) 8.8 fL 9.4-12.4 L (test code = 754) NUCLEATED RED BLOOD CELLS 0 /100 WBC 0-0 (BEAKER) (test code = 413) NEUTROPHILS RELATIVE PERCENT 64 % (BEAKER) (test code = 429) LYMPHOCYTES RELATIVE PERCENT 17 % (BEAKER) (test code = 430) MONOCYTES RELATIVE PERCENT 12 % (BEAKER) (test code = 431) EOSINOPHILS RELATIVE PERCENT 6 % (BEAKER) (test code = 432) BASOPHILS RELATIVE PERCENT 0 % (BEAKER) (test code = 437) NEUTROPHILS ABSOLUTE COUNT 5.16 K/ L 1.78-5.38 (BEAKER) (test code = 670) LYMPHOCYTES ABSOLUTE COUNT 1.41 K/ L 1.32-3.57 (BEAKER) (test code = 414) MONOCYTES ABSOLUTE COUNT (BEAKER) 0.93 K/ L 0.30-0.82 H (test code = 415) EOSINOPHILS ABSOLUTE COUNT 0.45 K/ L 0.04-0.54 (BEAKER) (test code = 416) BASOPHILS ABSOLUTE COUNT (BEAKER) 0.03 K/ L 0.01-0.08 (test code = 417) IMMATURE GRANULOCYTES-RELATIVE 2 % 0-1 H PERCENT (BEAKER) (test code = 2801) [id number] 10:17:00 Test Item Value Reference Range Interpretation Comments ACTIVATED CLOTTING TIME 340 sec Refe rence Range: 74-137 (BEAKER) (test code = second s, 441) Baseline/TESTED AT [facility] 67[address] [facility] 7703 0 POCT-GLUCOSE [id number] 13:02:00 Test Item Value Reference Range Interpretation Comments POC-GLUCOSE METER 183 mg/dL 70-110 H : TESTED A T [facility] 6720 (BEAKER) (test code = [facility], 1538) 63509: Cut Off Saw Operator/Techni sneha ID = [id number] for OR PHEY, BRAN POCT-GLUCOSE [id number] 08:21:00 Test Item Value Reference Range Interpretation Comments POC-GLUCOSE METER 116 mg/dL 70-110 H : TESTED A T [facility] 6720 (BEAKER) (test code = [facility], 1538) 40100: Cut Off Saw Operator/Techni sneha ID = [id number] for OR PHEY, BRAN [id number] 06:53:00 Test Item Value Reference Range Interpretation Comments MAGNESIUM (BEAKER) (test code = 1.9 mg/dL 1.6-2.6 627) Cut Off Saw Operator ID - LABASIC METABOLIC [id number] 06:53:00 Test Item Value Reference Range Interpretation Comments SODIUM (BEAKER) 138 meq/L 136-145 (test code = 381) POTASSIUM (BEAKER) 3.2 meq/L 3.5-5.1 L (test code = 379) CHLORIDE (BEAKER) 100 meq/L 98-107 (test code = 382) CO2 (BEAKER) (test 30 meq/L 22-29 H code = 355) BLOOD UREA NITROGEN 18 mg/dL 7-21 (BEAKER) (test code = 354) CREATININE (BEAKER) 0.97 mg/dL 0.57-1.25 (test code = 358) GLUCOSE RANDOM 104 mg/dL 70-105 (BEAKER) (test code = 652) CALCIUM (BEAKER) 8.6 mg/dL 8.4-10.2 (test code = 697) EGFR (BEAKER) (test 74 mL/min/1.73 ESTIMA LAI GFR IS code = 1092) sq m NOT ACCURATE CREATININE CLEARANCE IN PREDICTING GLOMERULAR FILTRATION RATE . ESTIMATED GFR I S NOT APPLICABLE FOR DIALYSIS PATIEN TS. Cut Off Saw Operator ID - [id number] (HEMOGRAM ONLY)2019-08-18 05:31:00 Test Item Value Reference Range Interpretation Comments WHITE BLOOD CELL COUNT (BEAKER) 10.5 K/ L 3.5-10.5 (test code = 775) RED BLOOD CELL COUNT (BEAKER) 2.73 M/ L 4.63-6.08 L (test code = 761) HEMOGLOBIN (BEAKER) (test code = 8.6 GM/DL 13.7-17.5 L 410) HEMATOCRIT (BEAKER) (test code = 25.3 % 40.1-51.0 L 411) MEAN CORPUSCULAR VOLUME (BEAKER) 92.7 fL 79.0-92.2 H (test code = 753) MEAN CORPUSCULAR HEMOGLOBIN 31.5 pg 25.7-32.2 (BEAKER) (test code = 751) MEAN CORPUSCULAR HEMOGLOBIN CONC 34.0 GM/DL 32.3-36.5 (BEAKER) (test code = 752) RED CELL DISTRIBUTION WIDTH 16.4 % 11.6-14.4 H (BEAKER) (test code = 412) PLATELET COUNT (BEAKER) (test 189 K/CU MM 150-450 code = 756) MEAN PLATELET VOLUME (BEAKER) 9.4 fL 9.4-12.4 (test code = 754) NUCLEATED RED BLOOD CELLS 0 /100 WBC 0-0 (BEAKER) (test code = 413) POCT-GLUCOSE [id number] 21:42:00 Test Item Value Reference Range Interpretation Comments POC-GLUCOSE METER 146 mg/dL 70-110 H : TESTED A T [facility] 6720 (BEAKER) (test code = [facility] [place], 1538) 48088: Cut Off Saw Operator/Techni sneha ID = [id number] for RO LIA, JAE HEMOGLOBIN AND [id number] 16:14:00 Test Item Value Reference Range Interpretation Comments HEMOGLOBIN (BEAKER) (test code = 8.6 GM/DL 13.7-17.5 L 410) HEMATOCRIT (BEAKER) (test code = 26.2 % 40.1-51.0 L 411) Cut Off Saw Operator ID - [id number] AND [id number] 15:23:00 Test Item Value Reference Range Interpretation Comments HEMOGLOBIN (BEAKER) (test code = 6.8 GM/DL 13.7-17.5 L 410) HEMATOCRIT (BEAKER) (test code = 20.7 % 40.1-51.0 L 411) Cut Off Saw Operator ID - [id number]-GLUCOSE [id number] 11:14:00 Test Item Value Reference Range Interpretation Comments POC-GLUCOSE METER 202 mg/dL 70-110 H : TESTED A T [facility] 6720 (BEAKER) (test code = [place] [facility], 1538) 50953: Cut Off Saw Operator/Techni sneha ID = [id number] for DERICK BURRELL FUNGUS CULTURE + [id number] 10:38:00 Test Item Value Reference Range Interpretation Comments CULTURE (BEAKER) (test No fungus isolated in code = 1095) 28 days FUNGUS SMEAR (BEAKER) No fungi seen (test code = 1406) FUNGUS CULTURE + [id number] 10:38:00 Test Item Value Reference Range Interpretation Comments CULTURE (BEAKER) (test No fungus isolated in code = 1095) 28 days FUNGUS SMEAR (BEAKER) No fungi seen (test code = 1406) POCT-GLUCOSE [id number] 08:10:00 Test Item Value Reference Range Interpretation Comments POC-GLUCOSE METER 111 mg/dL 70-110 H : TESTED A T [facility] 6720 (BEAKER) (test code = [facility], 1538) 65534: Cut Off Saw Operator/Techni sneha ID = [id number] for DERICK BURRELL [id number] 06:51:00 Test Item Value Reference Range Interpretation Comments MAGNESIUM (BEAKER) (test code = 1.9 mg/dL 1.6-2.6 627) Cut Off Saw Operator ID - LABASIC METABOLIC [id number] 06:51:00 Test Item Value Reference Range Interpretation Comments SODIUM (BEAKER) 138 meq/L 136-145 (test code = 381) POTASSIUM (BEAKER) 3.2 meq/L 3.5-5.1 L (test code = 379) CHLORIDE (BEAKER) 103 meq/L 98-107 (test code = 382) CO2 (BEAKER) (test 28 meq/L 22-29 code = 355) BLOOD UREA NITROGEN 17 mg/dL 7-21 (BEAKER) (test code = 354) CREATININE (BEAKER) 0.86 mg/dL 0.57-1.25 (test code = 358) GLUCOSE RANDOM 113 mg/dL 70-105 H (BEAKER) (test code = 652) CALCIUM (BEAKER) 8.7 mg/dL 8.4-10.2 (test code = 697) EGFR (BEAKER) (test 85 mL/min/1.73 ESTIMA LAI GFR IS code = 1092) sq m NOT ACCURATE CREATININE CLEARANCE IN PREDICTING GLOMERULAR FILTRATION RATE . ESTIMATED GFR I S NOT APPLICABLE FOR DIALYSIS PATIEN TS. Cut Off Saw Operator ID - [id number] (HEMOGRAM ONLY)2019-08-17 06:44:00 Test Item Value Reference Range Interpretation Comments WHITE BLOOD CELL COUNT (BEAKER) 9.7 K/ L 3.5-10.5 (test code = 775) RED BLOOD CELL COUNT (BEAKER) 2.33 M/ L 4.63-6.08 L (test code = 761) HEMOGLOBIN (BEAKER) (test code = 7.2 GM/DL 13.7-17.5 L 410) HEMATOCRIT (BEAKER) (test code = 22.5 % 40.1-51.0 L 411) MEAN CORPUSCULAR VOLUME (BEAKER) 96.6 fL 79.0-92.2 H (test code = 753) MEAN CORPUSCULAR HEMOGLOBIN 30.9 pg 25.7-32.2 (BEAKER) (test code = 751) MEAN CORPUSCULAR HEMOGLOBIN CONC 32.0 GM/DL 32.3-36.5 L (BEAKER) (test code = 752) RED CELL DISTRIBUTION WIDTH 14.2 % 11.6-14.4 (BEAKER) (test code = 412) PLATELET COUNT (BEAKER) (test 210 K/CU MM 150-450 code = 756) MEAN PLATELET VOLUME (BEAKER) 9.7 fL 9.4-12.4 (test code = 754) NUCLEATED RED BLOOD CELLS 0 /100 WBC 0-0 (BEAKER) (test code = 413) POCT-GLUCOSE [id number] 22:26:00 Test Item Value Reference Range Interpretation Comments POC-GLUCOSE METER 115 mg/dL 70-110 H : [facility] (BEAKER) (test code = [facility] [place], 1538) 30572: Cut Off Saw Operator/Techni sneha ID = [id number] for JAE ALLISON POCT-GLUCOSE [id number] 20:27:00 Test Item Value Reference Range Interpretation Comments POC-GLUCOSE METER 199 mg/dL 70-110 H : TESTED A T [facility] 6720 (BEAKER) (test code = [facility], 1538) 05061: Cut Off Saw Operator/Techni sneha ID = [id number] for CO RTEZ, DAMEON POCT-GLUCOSE [id number] 15:28:00 Test Item Value Reference Range Interpretation Comments POC-GLUCOSE METER 110 mg/dL 70-110 : TESTED A T [facility] 6720 (BEAKER) (test code = [facility], 1538) 02083: Cut Off Saw Operator/Techni sneha ID = [id number] for CO RTEZ, DAMEON POCT-GLUCOSE [id number] 12:57:00 Test Item Value Reference Range Interpretation Comments POC-GLUCOSE METER 167 mg/dL 70-110 H : TESTED A T [facility] 6720 (BEAKER) (test code = [facility], 1538) 36055: Cut Off Saw Operator/Techni sneha ID = [id number] for CO RTEZ, DAMEON [id number] 08:50:00 Test Item Value Reference Range Interpretation Comments MAGNESIUM (BEAKER) (test code = 1.9 mg/dL 1.5-3.0 627) Cut Off Saw Operator ID - [id number], [id number] 07:33:00 Test Item Value Reference Range Interpretation Comments CALCIUM IONIZED (BEAKER) (test 1.04 mmol/L 1.12-1.27 L code = 698) PH, BLOOD (BEAKER) (test code = 7.54 1810) CBC W/PLT COUNT & AUTO [id number] 05:26:00 Test Item Value Reference Range Interpretation Comments WHITE BLOOD CELL COUNT (BEAKER) 8.5 K/ L 3.5-10.5 (test code = 775) RED BLOOD CELL COUNT (BEAKER) 2.39 M/ L 4.63-6.08 L (test code = 761) HEMOGLOBIN (BEAKER) (test code = 7.5 GM/DL 13.7-17.5 L 410) HEMATOCRIT (BEAKER) (test code = 22.5 % 40.1-51.0 L 411) MEAN CORPUSCULAR VOLUME (BEAKER) 94.1 fL 79.0-92.2 H (test code = 753) MEAN CORPUSCULAR HEMOGLOBIN 31.4 pg 25.7-32.2 (BEAKER) (test code = 751) MEAN CORPUSCULAR HEMOGLOBIN CONC 33.3 GM/DL 32.3-36.5 (BEAKER) (test code = 752) RED CELL DISTRIBUTION WIDTH 13.8 % 11.6-14.4 (BEAKER) (test code = 412) PLATELET COUNT (BEAKER) (test 174 K/CU MM 150-450 code = 756) MEAN PLATELET VOLUME (BEAKER) 9.7 fL 9.4-12.4 (test code = 754) NUCLEATED RED BLOOD CELLS 0 /100 WBC 0-0 (BEAKER) (test code = 413) NEUTROPHILS RELATIVE PERCENT 70 % (BEAKER) (test code = 429) LYMPHOCYTES RELATIVE PERCENT 13 % (BEAKER) (test code = 430) MONOCYTES RELATIVE PERCENT 8 % (BEAKER) (test code = 431) EOSINOPHILS RELATIVE PERCENT 8 % (BEAKER) (test code = 432) BASOPHILS RELATIVE PERCENT 1 % (BEAKER) (test code = 437) NEUTROPHILS ABSOLUTE COUNT 5.94 K/ L 1.78-5.38 H (BEAKER) (test code = 670) LYMPHOCYTES ABSOLUTE COUNT 1.10 K/ L 1.32-3.57 L (BEAKER) (test code = 414) MONOCYTES ABSOLUTE COUNT (BEAKER) 0.66 K/ L 0.30-0.82 (test code = 415) EOSINOPHILS ABSOLUTE COUNT 0.66 K/ L 0.04-0.54 H (BEAKER) (test code = 416) BASOPHILS ABSOLUTE COUNT (BEAKER) 0.04 K/ L 0.01-0.08 (test code = 417) IMMATURE GRANULOCYTES-RELATIVE 1 % 0-1 PERCENT (BEAKER) (test code = 2801) POCT-GLUCOSE [id number] 21:51:00 Test Item Value Reference Range Interpretation Comments POC-GLUCOSE METER 164 mg/dL 70-110 H : TESTED Brina Butt [facility] 6720 (BEAKER) (test code = [facility] [place], 1538) 10061: Cut Off Saw Operator/Techni sneha ID = [id number] for LESLY CHINCHILLA POCT-GLUCOSE [id number] 17:32:00 Test Item Value Reference Range Interpretation Comments POC-GLUCOSE METER 155 mg/dL 70-110 H : TESTED A T [facility] 6720 (BEAKER) (test code = [facility] [place], 1538) 45668: Cut Off Saw Operator/Techni sneha ID = [id number] for OR BRAN PANDEY CBC W/PLT COUNT & AUTO [id number] 14:41:00 Test Item Value Reference Range Interpretation Comments WHITE BLOOD CELL COUNT (BEAKER) 8.5 K/ L 3.5-10.5 (test code = 775) RED BLOOD CELL COUNT (BEAKER) 2.40 M/ L 4.63-6.08 L (test code = 761) HEMOGLOBIN (BEAKER) (test code = 7.5 GM/DL 13.7-17.5 L 410) HEMATOCRIT (BEAKER) (test code = 22.8 % 40.1-51.0 L 411) MEAN CORPUSCULAR VOLUME (BEAKER) 95.0 fL 79.0-92.2 H (test code = 753) MEAN CORPUSCULAR HEMOGLOBIN 31.3 pg 25.7-32.2 (BEAKER) (test code = 751) MEAN CORPUSCULAR HEMOGLOBIN CONC 32.9 GM/DL 32.3-36.5 (BEAKER) (test code = 752) RED CELL DISTRIBUTION WIDTH 14.0 % 11.6-14.4 (BEAKER) (test code = 412) PLATELET COUNT (BEAKER) (test 171 K/CU MM 150-450 code = 756) MEAN PLATELET VOLUME (BEAKER) 9.3 fL 9.4-12.4 L (test code = 754) NUCLEATED RED BLOOD CELLS 0 /100 WBC 0-0 (BEAKER) (test code = 413) NEUTROPHILS RELATIVE PERCENT 74 % (BEAKER) (test code = 429) LYMPHOCYTES RELATIVE PERCENT 12 % (BEAKER) (test code = 430) MONOCYTES RELATIVE PERCENT 7 % (BEAKER) (test code = 431) EOSINOPHILS RELATIVE PERCENT 6 % (BEAKER) (test code = 432) BASOPHILS RELATIVE PERCENT 1 % (BEAKER) (test code = 437) NEUTROPHILS ABSOLUTE COUNT 6.24 K/ L 1.78-5.38 H (BEAKER) (test code = 670) LYMPHOCYTES ABSOLUTE COUNT 1.05 K/ L 1.32-3.57 L (BEAKER) (test code = 414) MONOCYTES ABSOLUTE COUNT (BEAKER) 0.56 K/ L 0.30-0.82 (test code = 415) EOSINOPHILS ABSOLUTE COUNT 0.47 K/ L 0.04-0.54 (BEAKER) (test code = 416) BASOPHILS ABSOLUTE COUNT (BEAKER) 0.05 K/ L 0.01-0.08 (test code = 417) IMMATURE GRANULOCYTES-RELATIVE 1 % 0-1 PERCENT (BEAKER) (test code = 2801) POCT-GLUCOSE [id number] 13:24:00 Test Item Value Reference Range Interpretation Comments POC-GLUCOSE METER 168 mg/dL 70-110 H : TESTED A T [facility] 6720 (BEAKER) (test code = [facility] [place], 1538) 41945: Cut Off Saw Operator/Techni sneha ID = [id number] for OR BRAN PANDEY [id number] 07:46:00 Test Item Value Reference Range Interpretation Comments FERRITIN (BEAKER) (test code = 361) 597 ng/mL 5-275 H Cut Off Saw Operator ID - JANINA MVITAMIN B12 AND [id number] 07:46:00 Test Item Value Reference Range Interpretation Comments VITAMIN B12 (BEAKER) (test code = 296 pg/mL 213-816 774) FOLATE (BEAKER) (test code = 362) 7.1 ng/mL >=7.0 Cut Off Saw Operator ID - JANINA MCBC W/PLT COUNT & AUTO [id number] 07:34:00 Test Item Value Reference Range Interpretation Comments WHITE BLOOD CELL COUNT (BEAKER) 8.9 K/ L 3.5-10.5 (test code = 775) RED BLOOD CELL COUNT (BEAKER) 2.40 M/ L 4.63-6.08 L (test code = 761) HEMOGLOBIN (BEAKER) (test code = 7.6 GM/DL 13.7-17.5 L 410) HEMATOCRIT (BEAKER) (test code = 23.0 % 40.1-51.0 L 411) MEAN CORPUSCULAR VOLUME (BEAKER) 95.8 fL 79.0-92.2 H (test code = 753) MEAN CORPUSCULAR HEMOGLOBIN 31.7 pg 25.7-32.2 (BEAKER) (test code = 751) MEAN CORPUSCULAR HEMOGLOBIN CONC 33.0 GM/DL 32.3-36.5 (BEAKER) (test code = 752) RED CELL DISTRIBUTION WIDTH 14.0 % 11.6-14.4 (BEAKER) (test code = 412) PLATELET COUNT (BEAKER) (test 169 K/CU MM 150-450 code = 756) MEAN PLATELET VOLUME (BEAKER) 9.7 fL 9.4-12.4 (test code = 754) NUCLEATED RED BLOOD CELLS 0 /100 WBC 0-0 (BEAKER) (test code = 413) NEUTROPHILS RELATIVE PERCENT 73 % (BEAKER) (test code = 429) LYMPHOCYTES RELATIVE PERCENT 12 % (BEAKER) (test code = 430) MONOCYTES RELATIVE PERCENT 8 % (BEAKER) (test code = 431) EOSINOPHILS RELATIVE PERCENT 6 % (BEAKER) (test code = 432) BASOPHILS RELATIVE PERCENT 1 % (BEAKER) (test code = 437) NEUTROPHILS ABSOLUTE COUNT 6.57 K/ L 1.78-5.38 H (BEAKER) (test code = 670) LYMPHOCYTES ABSOLUTE COUNT 1.08 K/ L 1.32-3.57 L (BEAKER) (test code = 414) MONOCYTES ABSOLUTE COUNT (BEAKER) 0.67 K/ L 0.30-0.82 (test code = 415) EOSINOPHILS ABSOLUTE COUNT 0.52 K/ L 0.04-0.54 (BEAKER) (test code = 416) BASOPHILS ABSOLUTE COUNT (BEAKER) 0.05 K/ L 0.01-0.08 (test code = 417) IMMATURE GRANULOCYTES-RELATIVE 1 % 0-1 PERCENT (BEAKER) (test code = 2801) POCT-GLUCOSE [id number] 07:29:00 Test Item Value Reference Range Interpretation Comments POC-GLUCOSE METER 104 mg/dL 70-110 : [facility] (BEAKER[facility] (test code = [facility] [place], 1538) 45151: Cut Off Saw Operator/Techni sneha ID = [id number] for MORALES CORWINYLEIA IRON, TIBC, % SAT. (WITHOUT FERRITIN)2019-08-15 07:11:00 Test Item Value Reference Range Interpretation Comments IRON (BEAKER) (test code = 547) 30.0 ug/dL 40.0-160.0 L TOTAL IRON BINDING CAPACITY 200 ug/dL 250-450 L (BEAKER) (test code = 769) IRON % SATURATION (2) (BEAKER) 15 % 20-55 L (test code = 2590) Cut Off Saw Operator ID - JANINA [id number] 07:11:00 Test Item Value Reference Range Interpretation Comments MAGNESIUM (BEAKER) (test code = 1.7 mg/dL 1.6-2.6 627) Cut Off Saw Operator ID - JANINA [id number] 07:05:00 Test Item Value Reference Range Interpretation Comments MAGNESIUM (BEAKER) (test code = 1.8 mg/dL 1.6-2.6 627) Cut Off Saw Operator ID - JANINA MBASIC METABOLIC [id number] 07:05:00 Test Item Value Reference Range Interpretation Comments SODIUM (BEAKER) 135 meq/L 136-145 L (test code = 381) POTASSIUM (BEAKER) 3.2 meq/L 3.5-5.1 L (test code = 379) CHLORIDE (BEAKER) 101 meq/L 98-107 (test code = 382) CO2 (BEAKER) (test 27 meq/L 22-29 code = 355) BLOOD UREA NITROGEN 15 mg/dL 7-21 (BEAKER) (test code = 354) CREATININE (BEAKER) 0.83 mg/dL 0.57-1.25 (test code = 358) GLUCOSE RANDOM 98 mg/dL 70-105 (BEAKER) (test code = 652) CALCIUM (BEAKER) 8.1 mg/dL 8.4-10.2 L (test code = 697) EGFR (BEAKER) (test 88 mL/min/1.73 ESTIMA LAI GFR IS code = 1092) sq m NOT ACCURATE CREATININE CLEARANCE IN PREDICTING GLOMERULAR FILTRATION RATE . ESTIMATED GFR I S NOT APPLICABLE FOR DIALYSIS PATIEN TS. Cut Off Saw Operator ID - JANINA MCALCIUM, [id number] 06:44:00 Test Item Value Reference Range Interpretation Comments CALCIUM IONIZED (BEAKER) (test 1.00 mmol/L 1.12-1.27 L code = 698) PH, BLOOD (BEAKER) (test code = 7.56 1810) POCT-GLUCOSE [id number] 21:24:00 Test Item Value Reference Range Interpretation Comments POC-GLUCOSE METER 173 mg/dL 70-110 H : TESTED A T [facility] 6720 (BEAKER) (test code = [facility], 1538) [id number]: Cut Off Saw Operator/Techni sneha ID = [id number] for MS PITO GONZALEZ POCT-GLUCOSE [id number] 18:11:00 Test Item Value Reference Range Interpretation Comments POC-GLUCOSE METER 144 mg/dL 70-110 H : TESTED A T [facility] 6720 (BEAKER) (test code = [facility], 1538) 57313: Cut Off Saw Operator/Techni sneha ID = [id number] for OR PHEY, BRAN POCT-GLUCOSE [id number] 13:52:00 Test Item Value Reference Range Interpretation Comments POC-GLUCOSE METER 115 mg/dL 70-110 H : TESTED A T [facility] 6720 (BEAKER) (test code = [facility], 1538) 50632: Cut Off Saw Operator/Techni sneha ID = [id number] for OR KATHERIN, BRAN POCT-GLUCOSE [id number] 08:59:00 Test Item Value Reference Range Interpretation Comments POC-GLUCOSE METER 124 mg/dL 70-110 H : TESTED A T [facility] 6720 (BEAKER) (test code = [facility], [facility]8) [address]: Cut Off Saw Operator/Techni sneha ID = [id number] for OR PHEY, BRAN [id number] 08:48:00 Test Item Value Reference Range Interpretation Comments MAGNESIUM (BEAKER) (test code = 1.9 mg/dL 1.6-2.6 627) Cut Off Saw Operator ID - LEEANNA FBASIC METABOLIC [id number] 08:48:00 Test Item Value Reference Range Interpretation Comments SODIUM (BEAKER) 134 meq/L 136-145 L (test code = 381) POTASSIUM (BEAKER) 3.6 meq/L 3.5-5.1 (test code = 379) CHLORIDE (BEAKER) 103 meq/L 98-107 (test code = 382) CO2 (BEAKER) (test 23 meq/L 22-29 code = 355) BLOOD UREA NITROGEN 14 mg/dL 7-21 (BEAKER) (test code = 354) CREATININE (BEAKER) 0.81 mg/dL 0.57-1.25 (test code = 358) GLUCOSE RANDOM 133 mg/dL 70-105 H (BEAKER) (test code = 652) CALCIUM (BEAKER) 8.0 mg/dL 8.4-10.2 L (test code = 697) EGFR (BEAKER) (test 91 mL/min/1.73 ESTIMA LAI GFR IS code = 1092) sq m NOT ACCURATE CREATININE CLEARANCE IN PREDICTING GLOMERULAR FILTRATION RATE . ESTIMATED GFR I S NOT APPLICABLE FOR DIALYSIS PATIEN TS. Cut Off Saw Operator ID - LEEANNA FCBC W/PLT COUNT & AUTO [id number] 08:24:00 Test Item Value Reference Range Interpretation Comments WHITE BLOOD CELL COUNT (BEAKER) 8.2 K/ L 3.5-10.5 (test code = 775) RED BLOOD CELL COUNT (BEAKER) 2.29 M/ L 4.63-6.08 L (test code = 761) HEMOGLOBIN (BEAKER) (test code = 7.2 GM/DL 13.7-17.5 L 410) HEMATOCRIT (BEAKER) (test code = 21.9 % 40.1-51.0 L 411) MEAN CORPUSCULAR VOLUME (BEAKER) 95.6 fL 79.0-92.2 H (test code = 753) MEAN CORPUSCULAR HEMOGLOBIN 31.4 pg 25.7-32.2 (BEAKER) (test code = 751) MEAN CORPUSCULAR HEMOGLOBIN CONC 32.9 GM/DL 32.3-36.5 (BEAKER) (test code = 752) RED CELL DISTRIBUTION WIDTH 14.2 % 11.6-14.4 (BEAKER) (test code = 412) PLATELET COUNT (BEAKER) (test 162 K/CU MM 150-450 code = 756) MEAN PLATELET VOLUME (BEAKER) 10.0 fL 9.4-12.4 (test code = 754) NUCLEATED RED BLOOD CELLS 0 /100 WBC 0-0 (BEAKER) (test code = 413) NEUTROPHILS RELATIVE PERCENT 74 % (BEAKER) (test code = 429) LYMPHOCYTES RELATIVE PERCENT 13 % (BEAKER) (test code = 430) MONOCYTES RELATIVE PERCENT 8 % (BEAKER) (test code = 431) EOSINOPHILS RELATIVE PERCENT 4 % (BEAKER) (test code = 432) BASOPHILS RELATIVE PERCENT 1 % (BEAKER) (test code = 437) NEUTROPHILS ABSOLUTE COUNT 6.07 K/ L 1.78-5.38 H (BEAKER) (test code = 670) LYMPHOCYTES ABSOLUTE COUNT 1.09 K/ L 1.32-3.57 L (BEAKER) (test code = 414) MONOCYTES ABSOLUTE COUNT (BEAKER) 0.68 K/ L 0.30-0.82 (test code = 415) EOSINOPHILS ABSOLUTE COUNT 0.30 K/ L 0.04-0.54 (BEAKER) (test code = 416) BASOPHILS ABSOLUTE COUNT (BEAKER) 0.04 K/ L 0.01-0.08 (test code = 417) IMMATURE GRANULOCYTES-RELATIVE 1 % 0-1 PERCENT (BEAKER) (test code = 2801) CALCIUM, [id number] 08:22:00 Test Item Value Reference Range Interpretation Comments CALCIUM IONIZED (BEAKER) (test 1.03 mmol/L 1.12-1.27 L code = 698) PH, BLOOD (BEAKER) (test code = 7.51 1810) RAD, CHEST, 1 VIEW, NON [id number] 05:08:00Reason for exam:->s/p PPMShould this be performed [...] prominence. No focal pulmonary consolidation or pneumothorax. Marifer d: Marc Small MDReport Verified Date/Time: 08/14/2019 05:08:53 POCT-GLUCOSE METER 2019-08-13 22:53:00 Test Item Value Reference Range Interpretation Comments POC-GLUCOSE METER 115 mg/dL 70-110 H : TESTED A T [facility] [address]20 (BEAKER) (test code = [place], 1538) [address]: Cut Off Saw Operator/Techni sneha ID = [id number] for MARISELA MURILLO POCT-GLUCOSE [id number] 15:40:00 Test Item Value Reference Range Interpretation Comments POC-GLUCOSE METER 113 mg/dL 70-110 H : TESTED A T [facility] 6720 (BEAKER) (test code = [place] [facility], 1538) [address]: Cut Off Saw Operator/Techni sneha ID = [id number] for TARUN SORENSON POCT-GLUCOSE [id number] 12:44:00 Test Item Value Reference Range Interpretation Comments POC-GLUCOSE METER 76 mg/dL 70-110 : Notified RN/MD: TEST[facility] (BEAKER) [facility] [address] 1538[facility], [address]: Cut Off Saw Operator/Techni sneha ID = [id number] for OBED HOFFMAN BASIC METABOLIC [id number] 09:27:00 Test Item Value Reference Range Interpretation Comments SODIUM (BEAKER) 135 meq/L 136-145 L (test code = 381) POTASSIUM (BEAKER) 3.0 meq/L 3.5-5.1 L (test code = 379) CHLORIDE (BEAKER) 102 meq/L 98-107 (test code = 382) CO2 (BEAKER) (test 26 meq/L 22-29 code = 355) BLOOD UREA NITROGEN 14 mg/dL 7-21 (BEAKER) (test code = 354) CREATININE (BEAKER) 0.79 mg/dL 0.57-1.25 (test code = 358) GLUCOSE RANDOM 71 mg/dL 70-105 (BEAKER) (test code = 652) CALCIUM (BEAKER) 7.9 mg/dL 8.4-10.2 L (test code = 697) EGFR (BEAKER) (test 94 mL/min/1.73 ESTIMA LAI GFR IS code = 1092) sq m NOT ACCURATE CREATININE CLEARANCE IN PREDICTING GLOMERULAR FILTRATION RATE . ESTIMATED GFR I S NOT APPLICABLE FOR DIALYSIS PATIEN TS. Cut Off Saw Operator ID - [id number] 09:19:00 Test Item Value Reference Range Interpretation Comments MAGNESIUM (BEAKER) (test code = 1.7 mg/dL 1.6-2.6 627) Cut Off Saw Operator ID - [id number] 07:09:00 Test Item Value Reference Range Interpretation Comments MAGNESIUM (BEAKER) (test code = 1.8 mg/dL 1.6-2.6 627) Cut Off Saw Operator ID - JANINA MCALCIUM, [id number] 06:20:00 Test Item Value Reference Range Interpretation Comments CALCIUM IONIZED (BEAKER) (test 1.00 mmol/L 1.12-1.27 L code = 698) PH, BLOOD (BEAKER) (test code = 7.54 1810) CBC W/PLT COUNT & AUTO [id number] 06:17:00 Test Item Value Reference Range Interpretation Comments WHITE BLOOD CELL COUNT (BEAKER) 9.8 K/ L 3.5-10.5 (test code = 775) RED BLOOD CELL COUNT (BEAKER) 2.35 M/ L 4.63-6.08 L (test code = 761) HEMOGLOBIN (BEAKER) (test code = 7.4 GM/DL 13.7-17.5 L 410) HEMATOCRIT (BEAKER) (test code = 22.4 % 40.1-51.0 L 411) MEAN CORPUSCULAR VOLUME (BEAKER) 95.3 fL 79.0-92.2 H (test code = 753) MEAN CORPUSCULAR HEMOGLOBIN 31.5 pg 25.7-32.2 (BEAKER) (test code = 751) MEAN CORPUSCULAR HEMOGLOBIN CONC 33.0 GM/DL 32.3-36.5 (BEAKER) (test code = 752) RED CELL DISTRIBUTION WIDTH 14.0 % 11.6-14.4 (BEAKER) (test code = 412) PLATELET COUNT (BEAKER) (test 175 K/CU MM 150-450 code = 756) MEAN PLATELET VOLUME (BEAKER) 10.0 fL 9.4-12.4 (test code = 754) NUCLEATED RED BLOOD CELLS 0 /100 WBC 0-0 (BEAKER) (test code = 413) NEUTROPHILS RELATIVE PERCENT 75 % (BEAKER) (test code = 429) LYMPHOCYTES RELATIVE PERCENT 12 % (BEAKER) (test code = 430) MONOCYTES RELATIVE PERCENT 10 % (BEAKER) (test code = 431) EOSINOPHILS RELATIVE PERCENT 3 % (BEAKER) (test code = 432) BASOPHILS RELATIVE PERCENT 0 % (BEAKER) (test code = 437) NEUTROPHILS ABSOLUTE COUNT 7.33 K/ L 1.78-5.38 H (BEAKER) (test code = 670) LYMPHOCYTES ABSOLUTE COUNT 1.16 K/ L 1.32-3.57 L (BEAKER) (test code = 414) MONOCYTES ABSOLUTE COUNT (BEAKER) 0.94 K/ L 0.30-0.82 H (test code = 415) EOSINOPHILS ABSOLUTE COUNT 0.24 K/ L 0.04-0.54 (BEAKER) (test code = 416) BASOPHILS ABSOLUTE COUNT (BEAKER) 0.03 K/ L 0.01-0.08 (test code = 417) IMMATURE GRANULOCYTES-RELATIVE 1 % 0-1 PERCENT (BEAKER) (test code = 2801) POCT-GLUCOSE [id number] 20:52:00 Test Item Value Reference Range Interpretation Comments POC-GLUCOSE METER 137 mg/dL 70-110 H : TESTED A T [facility] 6720 (BEAKER) (test code = [facility], 1538) [address]: Cut Off Saw Operator/Techni sneha ID = [id number] for OZachary JAMIA, MADONNA POCT-GLUCOSE [id number] 20:51:00 Test Item Value Reference Range Interpretation Comments POC-GLUCOSE METER 185 mg/dL 70-110 H : TESTED A T [facility] 6720 (BEAKER) (test code = [facility], 1538) [address]: Cut Off Saw Operator/Techni sneha ID = [id number] for MICHELLE AHMETFORREST BASIC METABOLIC [id number] 19:57:00 Test Item Value Reference Range Interpretation Comments SODIUM (BEAKER) 133 meq/L 136-145 L (test code = 381) POTASSIUM (BEAKER) 3.3 meq/L 3.5-5.1 L (test code = 379) CHLORIDE (BEAKER) 101 meq/L 98-107 (test code = 382) CO2 (BEAKER) (test 23 meq/L 22-29 code = 355) BLOOD UREA NITROGEN 14 mg/dL 7-21 (BEAKER) (test code = 354) CREATININE (BEAKER) 0.92 mg/dL 0.57-1.25 (test code = 358) GLUCOSE RANDOM 189 mg/dL 70-105 H (BEAKER) (test code = 652) CALCIUM (BEAKER) 7.8 mg/dL 8.4-10.2 L (test code = 697) EGFR (BEAKER) (test 79 mL/min/1.73 ESTIMA LAI GFR IS code = 1092) sq m NOT ACCURATE CREATININE CLEARANCE IN PREDICTING GLOMERULAR FILTRATION RATE . ESTIMATED GFR I S NOT APPLICABLE FOR DIALYSIS PATIEN TS. Cut Off Saw Operator ID - ROCCO TIMMONS, CHEST, 1 VIEW, NON [id number] 19:22:00FINAL REPORT Chest, portable AP view History: Shortness of breath Comparison: 08/07/2019 IMPRESSION: The heart is within normal limits of size. There is mild interstitial edema. Bibasilar atelectasis is present. No focal consolidation, sizable pleural effusion, or thorax. Status post left shoulder arthroplasty. Signed: Jared Lai MDReport Verified Date/Time: 08/12/2019 19:22:47 Reading Location: [address] Radiology Reading Room POCT-GLUCOSE METER 2019-08-12 09:04:00 Test Item Value Reference Range Interpretation Comments POC-GLUCOSE METER 141 mg/dL 70-110 H : TESTED A T [facility] 6720 (BEAKER) (test code = [place] [facility], 1538) [address]: Cut Off Saw Operator/Techni sneha ID = [id number] for CURT ORTIZ BASIC METABOLIC [id number] 06:52:00 Test Item Value Reference Range Interpretation Comments SODIUM (BEAKER) 134 meq/L 136-145 L (test code = 381) POTASSIUM (BEAKER) 3.6 meq/L 3.5-5.1 (test code = 379) CHLORIDE (BEAKER) 105 meq/L 98-107 (test code = 382) CO2 (BEAKER) (test 22 meq/L 22-29 code = 355) BLOOD UREA NITROGEN 14 mg/dL 7-21 (BEAKER) (test code = 354) CREATININE (BEAKER) 0.83 mg/dL 0.57-1.25 (test code = 358) GLUCOSE RANDOM 127 mg/dL 70-105 H (BEAKER) (test code = 652) CALCIUM (BEAKER) 7.9 mg/dL 8.4-10.2 L (test code = 697) EGFR (BEAKER) (test 88 mL/min/1.73 ESTIMA LAI GFR IS code = 1092) sq m NOT ACCURATE CREATININE CLEARANCE IN PREDICTING GLOMERULAR FILTRATION RATE . ESTIMATED GFR I S NOT APPLICABLE FOR DIALYSIS PATIEN TS. [id number] 06:51:00 Test Item Value Reference Range Interpretation Comments MAGNESIUM (BEAKER) (test code = 2.0 mg/dL 1.6-2.6 627) CALCIUM, [id number] 06:33:00 Test Item Value Reference Range Interpretation Comments CALCIUM IONIZED (BEAKER) (test 1.02 mmol/L 1.12-1.27 L code = 698) PH, BLOOD (BEAKER) (test code = 7.52 1810) CBC W/PLT COUNT & AUTO [id number] 06:33:00 Test Item Value Reference Range Interpretation Comments WHITE BLOOD CELL COUNT (BEAKER) 11.2 K/ L 3.5-10.5 H (test code = 775) RED BLOOD CELL COUNT (BEAKER) 2.45 M/ L 4.63-6.08 L (test code = 761) HEMOGLOBIN (BEAKER) (test code = 7.7 GM/DL 13.7-17.5 L 410) HEMATOCRIT (BEAKER) (test code = 23.6 % 40.1-51.0 L 411) MEAN CORPUSCULAR VOLUME (BEAKER) 96.3 fL 79.0-92.2 H (test code = 753) MEAN CORPUSCULAR HEMOGLOBIN 31.4 pg 25.7-32.2 (BEAKER) (test code = 751) MEAN CORPUSCULAR HEMOGLOBIN CONC 32.6 GM/DL 32.3-36.5 (BEAKER) (test code = 752) RED CELL DISTRIBUTION WIDTH 14.0 % 11.6-14.4 (BEAKER) (test code = 412) PLATELET COUNT (BEAKER) (test 178 K/CU MM 150-450 code = 756) MEAN PLATELET VOLUME (BEAKER) 9.7 fL 9.4-12.4 (test code = 754) NUCLEATED RED BLOOD CELLS 0 /100 WBC 0-0 (BEAKER) (test code = 413) NEUTROPHILS RELATIVE PERCENT 76 % (BEAKER) (test code = 429) LYMPHOCYTES RELATIVE PERCENT 11 % (BEAKER) (test code = 430) MONOCYTES RELATIVE PERCENT 10 % (BEAKER) (test code = 431) EOSINOPHILS RELATIVE PERCENT 1 % (BEAKER) (test code = 432) BASOPHILS RELATIVE PERCENT 0 % (BEAKER) (test code = 437) NEUTROPHILS ABSOLUTE COUNT 8.52 K/ L 1.78-5.38 H (BEAKER) (test code = 670) LYMPHOCYTES ABSOLUTE COUNT 1.19 K/ L 1.32-3.57 L (BEAKER) (test code = 414) MONOCYTES ABSOLUTE COUNT (BEAKER) 1.15 K/ L 0.30-0.82 H (test code = 415) EOSINOPHILS ABSOLUTE COUNT 0.15 K/ L 0.04-0.54 (BEAKER) (test code = 416) BASOPHILS ABSOLUTE COUNT (BEAKER) 0.03 K/ L 0.01-0.08 (test code = 417) IMMATURE GRANULOCYTES-RELATIVE 1 % 0-1 PERCENT (BEAKER) (test code = 2801) POCT-GLUCOSE [id number] 21:48:00 Test Item Value Reference Range Interpretation Comments POC-GLUCOSE METER 161 mg/dL 70-110 H : TESTED A T [facility] 6720 ([facility]) (test code = [facility], [facility]) [address]: Cut Off Saw Operator/Techni sneha ID = [id number] for RO LIA, JAE POCT-GLUCOSE [id number] 20:24:00 Test Item Value Reference Range Interpretation Comments POC-GLUCOSE METER 137 mg/dL 70-110 H : TESTED A T [facility] 6720 (BEAKER) (test code = [facility], 153) [address]: Cut Off Saw Operator/Techni sneha ID = [id number] for SA LLAH, MUHAMMED POCT-GLUCOSE [id number] 18:25:00 Test Item Value Reference Range Interpretation Comments POC-GLUCOSE METER 151 mg/dL 70-110 H : TESTED A T [facility] 6720 (BEAKER) (test code = [facility], 1538) [address]: Cut Off Saw Operator/Techni sneha ID = [id number] for OJ JAMIA, MADONNA POCT-GLUCOSE [id number] 11:54:00 Test Item Value Reference Range Interpretation Comments POC-GLUCOSE METER 230 mg/dL 70-110 H : TESTED A T [facility] 6720 (BEAKER) (test code = [facility], 1538) [address]: Cut Off Saw Operator/Techni sneha ID = [id number] for Gabe Ovalle POCT-GLUCOSE [id number] 07:58:00 Test Item Value Reference Range Interpretation Comments POC-GLUCOSE METER 132 mg/dL 70-110 H : TESTED A T [facility] 6720 (BEAKER) (test code = [place], 1538) [address]: Cut Off Saw Operator/Techni sneha ID = [id number] for Gabe Ovalle CBC W/PLT COUNT & AUTO [id number] 06:57:00 Test Item Value Reference Range Interpretation Comments WHITE BLOOD CELL COUNT (BEAKER) 12.6 K/ L 3.5-10.5 H (test code = 775) RED BLOOD CELL COUNT (BEAKER) 2.66 M/ L 4.63-6.08 L (test code = 761) HEMOGLOBIN (BEAKER) (test code = 8.2 GM/DL 13.7-17.5 L 410) HEMATOCRIT (BEAKER) (test code = 26.0 % 40.1-51.0 L 411) MEAN CORPUSCULAR VOLUME (BEAKER) 97.7 fL 79.0-92.2 H (test code = 753) MEAN CORPUSCULAR HEMOGLOBIN 30.8 pg 25.7-32.2 (BEAKER) (test code = 751) MEAN CORPUSCULAR HEMOGLOBIN CONC 31.5 GM/DL 32.3-36.5 L (BEAKER) (test code = 752) RED CELL DISTRIBUTION WIDTH 13.9 % 11.6-14.4 (BEAKER) (test code = 412) PLATELET COUNT (BEAKER) (test 213 K/CU MM 150-450 code = 756) MEAN PLATELET VOLUME (BEAKER) 9.8 fL 9.4-12.4 (test code = 754) NUCLEATED RED BLOOD CELLS 0 /100 WBC 0-0 (BEAKER) (test code = 413) NEUTROPHILS RELATIVE PERCENT 74 % (BEAKER) (test code = 429) LYMPHOCYTES RELATIVE PERCENT 12 % (BEAKER) (test code = 430) MONOCYTES RELATIVE PERCENT 11 % (BEAKER) (test code = 431) EOSINOPHILS RELATIVE PERCENT 1 % (BEAKER) (test code = 432) BASOPHILS RELATIVE PERCENT 1 % (BEAKER) (test code = 437) NEUTROPHILS ABSOLUTE COUNT 9.37 K/ L 1.78-5.38 H (BEAKER) (test code = 670) LYMPHOCYTES ABSOLUTE COUNT 1.45 K/ L 1.32-3.57 (BEAKER) (test code = 414) MONOCYTES ABSOLUTE COUNT (BEAKER) 1.42 K/ L 0.30-0.82 H (test code = 415) EOSINOPHILS ABSOLUTE COUNT 0.11 K/ L 0.04-0.54 (BEAKER) (test code = 416) BASOPHILS ABSOLUTE COUNT (BEAKER) 0.06 K/ L 0.01-0.08 (test code = 417) IMMATURE GRANULOCYTES-RELATIVE 1 % 0-1 PERCENT (BEAKER) (test code = 2801) [id number] 06:09:00 Test Item Value Reference Range Interpretation Comments PHOSPHORUS (BEAKER) (test code = 2.2 mg/dL 2.3-4.7 L 604) [id number] 06:09:00 Test Item Value Reference Range Interpretation Comments MAGNESIUM (BEAKER) (test code = 1.8 mg/dL 1.6-2.6 627) COMPREHENSIVE METABOLIC [id number] 06:09:00 Test Item Value Reference Range Interpretation Comments TOTAL PROTEIN 5.7 gm/dL 6.0-8.3 L (BEAKER) (test code = 770) ALBUMIN (BEAKER) 3.2 g/dL 3.5-5.0 L (test code = 1145) ALKALINE PHOSPHATASE 84 U/L 40-150 (BEAKER) (test code = 346) BILIRUBIN TOTAL 0.6 mg/dL 0.2-1.2 (BEAKER) (test code = 377) SODIUM (BEAKER) (test 137 meq/L 136-145 code = 381) POTASSIUM (BEAKER) 3.8 meq/L 3.5-5.1 (test code = 379) CHLORIDE (BEAKER) 106 meq/L 98-107 (test code = 382) CO2 (BEAKER) (test 23 meq/L 22-29 code = 355) BLOOD UREA NITROGEN 13 mg/dL 7-21 (BEAKER) (test code = 354) CREATININE (BEAKER) 0.82 mg/dL 0.57-1.25 (test code = 358) GLUCOSE RANDOM 104 mg/dL 70-105 (BEAKER) (test code = 652) CALCIUM (BEAKER) 8.0 mg/dL 8.4-10.2 L (test code = 697) AST (SGOT) (BEAKER) 23 U/L 5-34 (test code = 353) ALT (SGPT) (BEAKER) 15 U/L 6-55 (test code = 347) EGFR (BEAKER) (test 90 mL/min/1.73 ESTIMA LAI GFR IS code = 1092) sq m NOT ACCURATE CREATININE CLEARANCE IN PREDICTING GLOMERULAR FILTRATION RATE . ESTIMATED GFR I S NOT APPLICABLE FOR DIALYSIS PATIEN TS. CALCIUM, [id number] 05:44:00 Test Item Value Reference Range Interpretation Comments CALCIUM IONIZED (BEAKER) (test 1.08 mmol/L 1.12-1.27 L code = 698) PH, BLOOD (BEAKER) (test code = 7.46 1810) POCT-GLUCOSE [id number] 22:15:00 Test Item Value Reference Range Interpretation Comments POC-GLUCOSE METER 142 mg/dL 70-110 H : TESTED A T [facility] 6720 (BEAKER) (test code = MANI [place] [facility], 1538) [address]: Cut Off Saw Operator/Techni sneha ID = [id number] for CO LESTER BON BASIC METABOLIC [id number] 19:31:00 Test Item Value Reference Range Interpretation Comments SODIUM (BEAKER) 134 meq/L 136-145 L (test code = 381) POTASSIUM (BEAKER) 5.0 meq/L 3.5-5.1 Specimen moderately (test code = 379) hemolyzed CHLORIDE (BEAKER) 104 meq/L 98-107 (test code = 382) CO2 (BEAKER) (test 22 meq/L 22-29 code = 355) BLOOD UREA NITROGEN 12 mg/dL 7-21 (BEAKER) (test code = 354) CREATININE (BEAKER) 0.84 mg/dL 0.57-1.25 Specimen moderately (test code = 358) hemolyzed GLUCOSE RANDOM 169 mg/dL 70-105 H (BEAKER) (test code = 652) CALCIUM (BEAKER) 7.9 mg/dL 8.4-10.2 L (test code = 697) EGFR (BEAKER) (test 87 mL/min/1.73 ESTIMA LAI GFR IS code = 1092) sq m NOT ACCURATE CREATININE CLEARANCE IN PREDICTING GLOMERULAR FILTRATION RATE . ESTIMATED GFR I S NOT APPLICABLE FOR DIALYSIS PATIEN TS. POCT-GLUCOSE [id number] 17:07:00 Test Item Value Reference Range Interpretation Comments POC-GLUCOSE METER 165 mg/dL 70-110 H : TESTED A T [facility] 6720 (BEAKER) (test code = [place], 1538) [address]: Cut Off Saw Operator/Techni sneha ID = [id number] for KATE SHELTON POTASSIUM-STAT [id number] 12:29:00 Test Item Value Reference Range Interpretation Comments POTASSIUM (BEAKER) (test code = 3.8 meq/L 3.6-5.5 379) BLOOD GAS, [id number] 12:29:00 Test Item Value Reference Range Interpretation Comments PH ARTERIAL (BEAKER) (test code = 7.41 7.35-7.45 383) PCO2 ARTERIAL (BEAKER) (test code 35 mmHg 35-45 = 384) PO2 ARTERIAL (BEAKER) (test code 248 mmHg 80-90 H = 385) O2 SATURATION ARTERIAL (BEAKER) 99.6 % 96.0-97.0 H (test code = 386) HCO3 ARTERIAL (BEAKER) (test code 22 mmol/L 21-29 = 388) BASE EXCESS ARTERIAL (BEAKER) -2.5 mmol/L -2.0-3.0 L (test code = 387) PATIENT TEMPERATURE (BEAKER) 37.0 C (test code = 1818) FIO2 (BEAKER) (test code = 1819) 100.0 % SODIUM NA-STAT [id number] 12:29:00 Test Item Value Reference Range Interpretation Comments SODIUM (BEAKER) (test code = 381) 134 meq/L 135-148 L GLUCOSE-STAT [id number] 12:29:00 Test Item Value Reference Range Interpretation Comments GLUCOSE RANDOM (BEAKER) (test code 144 mg/dL 70-110 H = 652) HGB/HCT (H&H) - STAT [id number] 12:29:00 Test Item Value Reference Range Interpretation Comments HEMOGLOBIN (BEAKER) (test code = 9.4 g/dL 13.0-16.8 L 410) HEMATOCRIT (BEAKER) (test code = 28.0 % 40.0-50.0 L 411) CALCIUM, [id number] 12:29:00 Test Item Value Reference Range Interpretation Comments CALCIUM IONIZED (BEAKER) (test 1.02 mmol/L 1.12-1.27 L code = 698) PH, BLOOD (BEAKER) (test code = 7.41 1810) [id number] 06:09:00 Test Item Value Reference Range Interpretation Comments ACTIVATED CLOTTING TIME 301 sec Refe rence Range: 74-137 (BEAKER) (test code = second s, 441) Baseline/TESTED AT [address] [address] [id number] 06:09:00 Test Item Value Reference Range Interpretation Comments ACTIVATED CLOTTING TIME 213 sec Refe rence Range: 74-137 (BEAKER) (test code = second s, 441) Baseline/TESTED AT [address] [address] [id number] 06:09:00 Test Item Value Reference Range Interpretation Comments ACTIVATED CLOTTING TIME 301 sec Refe rence Range: 74-137 (BEAKER) (test code = second s, 441) Baseline/TESTED AT [address] [address] CALCIUM, [id number] 05:41:00 Test Item Value Reference Range Interpretation Comments CALCIUM IONIZED (BEAKER) (test 1.12 mmol/L 1.12-1.27 code = 698) PH, BLOOD (BEAKER) (test code = 7.50 1810) [id number] 05:01:00 Test Item Value Reference Range Interpretation Comments PHOSPHORUS (BEAKER) (test code = 2.6 mg/dL 2.3-4.7 604) [id number] 05:01:00 Test Item Value Reference Range Interpretation Comments MAGNESIUM (BEAKER) (test code = 1.8 mg/dL 1.6-2.6 627) BASIC METABOLIC [id number] 05:01:00 Test Item Value Reference Range Interpretation Comments SODIUM (BEAKER) 134 meq/L 136-145 L (test code = 381) POTASSIUM (BEAKER) 3.7 meq/L 3.5-5.1 (test code = 379) CHLORIDE (BEAKER) 103 meq/L 98-107 (test code = 382) CO2 (BEAKER) (test 22 meq/L 22-29 code = 355) BLOOD UREA NITROGEN 12 mg/dL 7-21 (BEAKER) (test code = 354) CREATININE (BEAKER) 0.92 mg/dL 0.57-1.25 (test code = 358) GLUCOSE RANDOM 126 mg/dL 70-105 H (BEAKER) (test code = 652) CALCIUM (BEAKER) 8.2 mg/dL 8.4-10.2 L (test code = 697) EGFR (BEAKER) (test 79 mL/min/1.73 ESTIMA LAI GFR IS code = 1092) sq m NOT ACCURATE CREATININE CLEARANCE IN PREDICTING GLOMERULAR FILTRATION RATE . ESTIMATED GFR I S NOT APPLICABLE FOR DIALYSIS PATIEN TS. [id number] 04:53:00 Test Item Value Reference Range Interpretation Comments PARTIAL THROMBOPLASTIN TIME 81.7 seconds 22.5-36.0 H (BEAKER) (test code = 760) CBC W/PLT COUNT & AUTO [id number] 04:33:00 Test Item Value Reference Range Interpretation Comments WHITE BLOOD CELL COUNT (BEAKER) 9.7 K/ L 3.5-10.5 (test code = 775) RED BLOOD CELL COUNT (BEAKER) 2.79 M/ L 4.63-6.08 L (test code = 761) HEMOGLOBIN (BEAKER) (test code = 8.8 GM/DL 13.7-17.5 L 410) HEMATOCRIT (BEAKER) (test code = 26.4 % 40.1-51.0 L 411) MEAN CORPUSCULAR VOLUME (BEAKER) 94.6 fL 79.0-92.2 H (test code = 753) MEAN CORPUSCULAR HEMOGLOBIN 31.5 pg 25.7-32.2 (BEAKER) (test code = 751) MEAN CORPUSCULAR HEMOGLOBIN CONC 33.3 GM/DL 32.3-36.5 (BEAKER) (test code = 752) RED CELL DISTRIBUTION WIDTH 13.4 % 11.6-14.4 (BEAKER) (test code = 412) PLATELET COUNT (BEAKER) (test 249 K/CU MM 150-450 code = 756) MEAN PLATELET VOLUME (BEAKER) 10.2 fL 9.4-12.4 (test code = 754) NUCLEATED RED BLOOD CELLS 0 /100 WBC 0-0 (BEAKER) (test code = 413) NEUTROPHILS RELATIVE PERCENT 67 % (BEAKER) (test code = 429) LYMPHOCYTES RELATIVE PERCENT 14 % (BEAKER) (test code = 430) MONOCYTES RELATIVE PERCENT 11 % (BEAKER) (test code = 431) EOSINOPHILS RELATIVE PERCENT 6 % (BEAKER) (test code = 432) BASOPHILS RELATIVE PERCENT 1 % (BEAKER) (test code = 437) NEUTROPHILS ABSOLUTE COUNT 6.46 K/ L 1.78-5.38 H (BEAKER) (test code = 670) LYMPHOCYTES ABSOLUTE COUNT 1.40 K/ L 1.32-3.57 (BEAKER) (test code = 414) MONOCYTES ABSOLUTE COUNT (BEAKER) 1.02 K/ L 0.30-0.82 H (test code = 415) EOSINOPHILS ABSOLUTE COUNT 0.58 K/ L 0.04-0.54 H (BEAKER) (test code = 416) BASOPHILS ABSOLUTE COUNT (BEAKER) 0.06 K/ L 0.01-0.08 (test code = 417) IMMATURE GRANULOCYTES-RELATIVE 2 % 0-1 H PERCENT (BEAKER) (test code = 2801) POCT-GLUCOSE [id number] 21:53:00 Test Item Value Reference Range Interpretation Comments POC-GLUCOSE METER 166 mg/dL 70-110 H : TESTED A T [facility] 6720 (BEAKER) (test code = [facility], 1538) 92607: Cut Off Saw Operator/Techni sneha ID = [id number] for CO LESTER, BON POCT-GLUCOSE [id number] 17:42:00 Test Item Value Reference Range Interpretation Comments POC-GLUCOSE METER 145 mg/dL 70-110 H : TESTED A T [facility] (BEAKER) (test code = [facility], 1538) 15953: Cut Off Saw Operator/Techni sneha ID = [id number] for JU AREZ, KATE POCT-GLUCOSE [id number] 12:22:00 Test Item Value Reference Range Interpretation Comments POC-GLUCOSE METER 139 mg/dL 70-110 H : TESTED A T [facility] 6720 (BEAKER) (test code = [facility], 1538) 55294: Cut Off Saw Operator/Techni sneha ID = [id number] for JU AREZ, KATE POCT-GLUCOSE [id number] 08:26:00 Test Item Value Reference Range Interpretation Comments POC-GLUCOSE METER 84 mg/dL 70-110 : TESTED A T [facility] 6720 (BEAKER) (test code = [facility], 1538) 99167: Cut Off Saw Operator/Techni sneha ID = [id number] for KATE JOHNSTON [id number] 04:31:00 Test Item Value Reference Range Interpretation Comments MAGNESIUM (BEAKER) 1.8 mg/dL 1.6-2.6 Specimen slightly (test code = 627) hemolyzed BASIC METABOLIC [id number] 04:31:00 Test Item Value Reference Range Interpretation Comments SODIUM (BEAKER) 134 meq/L 136-145 L (test code = 381) POTASSIUM (BEAKER) 4.2 meq/L 3.5-5.1 Specimen slightly (test code = 379) hemolyzed CHLORIDE (BEAKER) 103 meq/L 98-107 (test code = 382) CO2 (BEAKER) (test 23 meq/L 22-29 code = 355) BLOOD UREA NITROGEN 13 mg/dL 7-21 (BEAKER) (test code = 354) CREATININE (BEAKER) 1.03 mg/dL 0.57-1.25 Specimen slightly (test code = 358) hemolyzed GLUCOSE RANDOM 111 mg/dL 70-105 H (BEAKER) (test code = 652) CALCIUM (BEAKER) 8.4 mg/dL 8.4-10.2 (test code = 697) EGFR (BEAKER) (test 69 mL/min/1.73 ESTIMA LAI GFR IS code = 1092) sq m NOT ACCURATE CREATININE CLEARANCE IN PREDICTING GLOMERULAR FILTRATION RATE . ESTIMATED GFR I S NOT APPLICABLE FOR DIALYSIS PATIEN TS. CALCIUM, [id number] 03:02:00 Test Item Value Reference Range Interpretation Comments CALCIUM IONIZED (BEAKER) (test 1.15 mmol/L 1.12-1.27 code = 698) PH, BLOOD (BEAKER) (test code = 7.47 1810) [id number] 02:59:00 Test Item Value Reference Range Interpretation Comments PARTIAL THROMBOPLASTIN TIME 77.9 seconds 22.5-36.0 H (BEAKER) (test code = 760) CBC W/PLT COUNT & AUTO [id number] 02:46:00 Test Item Value Reference Range Interpretation Comments WHITE BLOOD CELL COUNT (BEAKER) 9.7 K/ L 3.5-10.5 (test code = 775) RED BLOOD CELL COUNT (BEAKER) 2.86 M/ L 4.63-6.08 L (test code = 761) HEMOGLOBIN (BEAKER) (test code = 9.1 GM/DL 13.7-17.5 L 410) HEMATOCRIT (BEAKER) (test code = 27.2 % 40.1-51.0 L 411) MEAN CORPUSCULAR VOLUME (BEAKER) 95.1 fL 79.0-92.2 H (test code = 753) MEAN CORPUSCULAR HEMOGLOBIN 31.8 pg 25.7-32.2 (BEAKER) (test code = 751) MEAN CORPUSCULAR HEMOGLOBIN CONC 33.5 GM/DL 32.3-36.5 (BEAKER) (test code = 752) RED CELL DISTRIBUTION WIDTH 13.3 % 11.6-14.4 (BEAKER) (test code = 412) PLATELET COUNT (BEAKER) (test 260 K/CU MM 150-450 code = 756) MEAN PLATELET VOLUME (BEAKER) 10.0 fL 9.4-12.4 (test code = 754) NUCLEATED RED BLOOD CELLS 0 /100 WBC 0-0 (BEAKER) (test code = 413) NEUTROPHILS RELATIVE PERCENT 65 % (BEAKER) (test code = 429) LYMPHOCYTES RELATIVE PERCENT 17 % (BEAKER) (test code = 430) MONOCYTES RELATIVE PERCENT 9 % (BEAKER) (test code = 431) EOSINOPHILS RELATIVE PERCENT 7 % (BEAKER) (test code = 432) BASOPHILS RELATIVE PERCENT 1 % (BEAKER) (test code = 437) NEUTROPHILS ABSOLUTE COUNT 6.27 K/ L 1.78-5.38 H (BEAKER) (test code = 670) LYMPHOCYTES ABSOLUTE COUNT 1.66 K/ L 1.32-3.57 (BEAKER) (test code = 414) MONOCYTES ABSOLUTE COUNT (BEAKER) 0.86 K/ L 0.30-0.82 H (test code = 415) EOSINOPHILS ABSOLUTE COUNT 0.65 K/ L 0.04-0.54 H (BEAKER) (test code = 416) BASOPHILS ABSOLUTE COUNT (BEAKER) 0.05 K/ L 0.01-0.08 (test code = 417) IMMATURE GRANULOCYTES-RELATIVE 2 % 0-1 H PERCENT (BEAKER) (test code = 2801) POCT-GLUCOSE [id number] 21:19:00 Test Item Value Reference Range Interpretation Comments POC-GLUCOSE METER 137 mg/dL 70-110 H : Notified RN/MD: ([facility]) (test code = TESTED AT [place] [id number] 1538) [facility], [address]: Cut Off Saw Operator/Techni sneha ID = [id number] for BENJAMIN FLORES POCT-GLUCOSE [id number] 17:42:00 Test Item Value Reference Range Interpretation Comments POC-GLUCOSE METER 147 mg/dL 70-110 H : [facility] (test code = [facility], 1538) [address]: Cut Off Saw Operator/Techni sneha ID = [id number] for JINA SHELTONA [id number] 12:42:00 Test Item Value Reference Range Interpretation Comments PARTIAL THROMBOPLASTIN TIME 80.9 seconds 22.5-36.0 H ([facility]) (test code = 760) POCT-GLUCOSE [id number] 12:31:00 Test Item Value Reference Range Interpretation Comments POC-GLUCOSE METER 125 mg/dL 70-110 H : [facility] (test code = [facility], 1538) [address]: Cut Off Saw Operator/Techni sneha ID = [id number] for TAIWO SHELTONCIA POCT-GLUCOSE [id number] 08:02:00 Test Item Value Reference Range Interpretation Comments POC-GLUCOSE METER 89 mg/dL 70-110 : [facility] (test code = [facility], 1538) [address]: Cut Off Saw Operator/Techni sneha ID = [id number] for JINA JOHNSTONA [id number] 07:42:00 Test Item Value Reference Range Interpretation Comments MAGNESIUM (BEAKER) (test code = 2.4 mg/dL 1.6-2.6 627) BASIC METABOLIC [id number] 04:48:00 Test Item Value Reference Range Interpretation Comments SODIUM (BEAKER) 134 meq/L 136-145 L (test code = 381) POTASSIUM (BEAKER) 3.7 meq/L 3.5-5.1 (test code = 379) CHLORIDE (BEAKER) 103 meq/L 98-107 (test code = 382) CO2 (BEAKER) (test 23 meq/L 22-29 code = 355) BLOOD UREA NITROGEN 13 mg/dL 7-21 (BEAKER) (test code = 354) CREATININE (BEAKER) 1.00 mg/dL 0.57-1.25 (test code = 358) GLUCOSE RANDOM 80 mg/dL 70-105 (BEAKER) (test code = 652) CALCIUM (BEAKER) 9.0 mg/dL 8.4-10.2 (test code = 697) EGFR (BEAKER) (test 71 mL/min/1.73 ESTIMA LAI GFR IS code = 1092) sq m NOT ACCURATE CREATININE CLEARANCE IN PREDICTING GLOMERULAR FILTRATION RATE . ESTIMATED GFR I S NOT APPLICABLE FOR DIALYSIS PATIEN TS. [id number] 04:07:00 Test Item Value Reference Range Interpretation Comments PARTIAL THROMBOPLASTIN TIME 77.4 seconds 22.5-36.0 H (BEAKER) (test code = 760) CBC W/PLT COUNT & AUTO [id number] 04:03:00 Test Item Value Reference Range Interpretation Comments WHITE BLOOD CELL COUNT (BEAKER) 10.4 K/ L 3.5-10.5 (test code = 775) RED BLOOD CELL COUNT (BEAKER) 3.06 M/ L 4.63-6.08 L (test code = 761) HEMOGLOBIN (BEAKER) (test code = 9.6 GM/DL 13.7-17.5 L 410) HEMATOCRIT (BEAKER) (test code = 28.9 % 40.1-51.0 L 411) MEAN CORPUSCULAR VOLUME (BEAKER) 94.4 fL 79.0-92.2 H (test code = 753) MEAN CORPUSCULAR HEMOGLOBIN 31.4 pg 25.7-32.2 (BEAKER) (test code = 751) MEAN CORPUSCULAR HEMOGLOBIN CONC 33.2 GM/DL 32.3-36.5 (BEAKER) (test code = 752) RED CELL DISTRIBUTION WIDTH 13.2 % 11.6-14.4 (BEAKER) (test code = 412) PLATELET COUNT (BEAKER) (test 278 K/CU MM 150-450 code = 756) MEAN PLATELET VOLUME (BEAKER) 9.8 fL 9.4-12.4 (test code = 754) NUCLEATED RED BLOOD CELLS 0 /100 WBC 0-0 (BEAKER) (test code = 413) NEUTROPHILS RELATIVE PERCENT 58 % (BEAKER) (test code = 429) LYMPHOCYTES RELATIVE PERCENT 21 % (BEAKER) (test code = 430) MONOCYTES RELATIVE PERCENT 10 % (BEAKER) (test code = 431) EOSINOPHILS RELATIVE PERCENT 8 % (BEAKER) (test code = 432) BASOPHILS RELATIVE PERCENT 0 % (BEAKER) (test code = 437) NEUTROPHILS ABSOLUTE COUNT 6.07 K/ L 1.78-5.38 H (BEAKER) (test code = 670) LYMPHOCYTES ABSOLUTE COUNT 2.22 K/ L 1.32-3.57 (BEAKER) (test code = 414) MONOCYTES ABSOLUTE COUNT (BEAKER) 1.02 K/ L 0.30-0.82 H (test code = 415) EOSINOPHILS ABSOLUTE COUNT 0.82 K/ L 0.04-0.54 H (BEAKER) (test code = 416) BASOPHILS ABSOLUTE COUNT (BEAKER) 0.04 K/ L 0.01-0.08 (test code = 417) IMMATURE GRANULOCYTES-RELATIVE 2 % 0-1 H PERCENT (BEAKER) (test code = 2801) CALCIUM, [id number] 03:57:00 Test Item Value Reference Range Interpretation Comments CALCIUM IONIZED (BEAKER) (test 1.14 mmol/L 1.12-1.27 code = 698) PH, BLOOD (BEAKER) (test code = 7.53 1810) POCT-GLUCOSE [id number] 00:56:00 Test Item Value Reference Range Interpretation Comments POC-GLUCOSE METER 110 mg/dL 70-110 : TESTED [facility] T [facility] 6720 (BEAKER) (test code = [place], 1538) [address]: Cut Off Saw Operator/Techni sneha ID = [id number] for AL I, NENA [id number] 21:01:00 Test Item Value Reference Range Interpretation Comments MAGNESIUM (BEAKER) 1.9 mg/dL 1.6-2.6 Specimen slightly (test code = 627) hemolyzed [id number] 21:01:00 Test Item Value Reference Range Interpretation Comments POTASSIUM (BEAKER) 4.4 meq/L 3.5-5.1 Specimen slightly (test code = 379) hemolyzed [id number] 20:55:00 Test Item Value Reference Range Interpretation Comments PARTIAL THROMBOPLASTIN TIME 60.4 seconds 22.5-36.0 H (BEAKER) (test code = 760) POCT-GLUCOSE [id number] 20:32:00 Test Item Value Reference Range Interpretation Comments POC-GLUCOSE METER 161 mg/dL 70-110 H : TESTED A T [facility] 6720 (BEAKER) (test code = [place] [facility], 1538) [address]: Cut Off Saw Operator/Techni sneha ID = [id number] for AL NENA Garcia POCT-GLUCOSE [id number] 19:23:00 Test Item Value Reference Range Interpretation Comments POC-GLUCOSE METER 147 mg/dL 70-110 H : TESTED A T [facility] 6720 (BEAKER) (test code = [facility], 1538) [address]: Cut Off Saw Operator/Techni sneha ID = [id number] for KELSI RNABE, LISA RAD, CHEST, 1 VIEW, NON [id number] 15:28:00Reason for exam:->Pulmonary vascular congestionShould this be performed at the bedside?->YesFINAL REPORT History: Pulmonary vascular congestion Comparison: 08/06/2019 Findings: The lungs are clear. No pleural effusions or pneumothorax. The heart shadow is normal in size. The thoracic aorta is mildly tortuous. A left shoulder reverse arthroplasty is partially imaged. Impression: No evidence of acute cardiopulmonary disease. Signed: Dwight Roseneport Verified Date/Time: 08/07/2019 15:28:06 Reading Location: [address] Transitional Reading Room B-TYPE NATRIURETIC FACTOR (BNP)2019-08-07 14:51:00 Test Item Value Reference Range Interpretation Comments B-TYPE NATRIURETIC PEPTIDE (BEAKER) 461 pg/mL 0-100 H (test code = 700) CBC W/PLT COUNT & AUTO [id number] 14:17:00 Test Item Value Reference Range Interpretation Comments WHITE BLOOD CELL COUNT (BEAKER) 10.8 K/ L 3.5-10.5 H (test code = 775) RED BLOOD CELL COUNT (BEAKER) 3.07 M/ L 4.63-6.08 L (test code = 761) HEMOGLOBIN (BEAKER) (test code = 9.5 GM/DL 13.7-17.5 L 410) HEMATOCRIT (BEAKER) (test code = 29.4 % 40.1-51.0 L 411) MEAN CORPUSCULAR VOLUME (BEAKER) 95.8 fL 79.0-92.2 H (test code = 753) MEAN CORPUSCULAR HEMOGLOBIN 30.9 pg 25.7-32.2 (BEAKER) (test code = 751) MEAN CORPUSCULAR HEMOGLOBIN CONC 32.3 GM/DL 32.3-36.5 (BEAKER) (test code = 752) RED CELL DISTRIBUTION WIDTH 13.2 % 11.6-14.4 (BEAKER) (test code = 412) PLATELET COUNT (BEAKER) (test 289 K/CU MM 150-450 code = 756) MEAN PLATELET VOLUME (BEAKER) 10.2 fL 9.4-12.4 (test code = 754) NUCLEATED RED BLOOD CELLS 0 /100 WBC 0-0 (BEAKER) (test code = 413) NEUTROPHILS RELATIVE PERCENT 60 % (BEAKER) (test code = 429) LYMPHOCYTES RELATIVE PERCENT 17 % (BEAKER) (test code = 430) MONOCYTES RELATIVE PERCENT 10 % (BEAKER) (test code = 431) EOSINOPHILS RELATIVE PERCENT 9 % (BEAKER) (test code = 432) BASOPHILS RELATIVE PERCENT 1 % (BEAKER) (test code = 437) NEUTROPHILS ABSOLUTE COUNT 6.54 K/ L 1.78-5.38 H (BEAKER) (test code = 670) LYMPHOCYTES ABSOLUTE COUNT 1.84 K/ L 1.32-3.57 (BEAKER) (test code = 414) MONOCYTES ABSOLUTE COUNT (BEAKER) 1.07 K/ L 0.30-0.82 H (test code = 415) EOSINOPHILS ABSOLUTE COUNT 0.94 K/ L 0.04-0.54 H (BEAKER) (test code = 416) BASOPHILS ABSOLUTE COUNT (BEAKER) 0.06 K/ L 0.01-0.08 (test code = 417) IMMATURE GRANULOCYTES-RELATIVE 4 % 0-1 H PERCENT (BEAKER) (test code = 2801) [id number] 13:27:00 Test Item Value Reference Range Interpretation Comments PARTIAL THROMBOPLASTIN TIME 65.5 seconds 22.5-36.0 H (BEAKER) (test code = 760) POCT-GLUCOSE [id number] 13:26:00 Test Item Value Reference Range Interpretation Comments POC-GLUCOSE METER 153 mg/dL 70-110 H : TESTED A T [facility] 6720 (BEAKER) (test code = [place] [facility], 1538) [address]: Cut Off Saw Operator/Techni sneha ID = [id number] for KELSI RNABE, LISA POCT-GLUCOSE [id number] 08:32:00 Test Item Value Reference Range Interpretation Comments POC-GLUCOSE METER 109 mg/dL 70-110 : TESTED A T [facility] 6720 (BEAKER) ([facility] = [facility] [place] [facility], 1538) [address]: Cut Off Saw Operator/Techni sneha ID = [id number] for BE RNABE, LISA [id number] 05:44:00 Test Item Value Reference Range Interpretation Comments PARTIAL THROMBOPLASTIN TIME 63.4 seconds 22.5-36.0 H (BEAKER) (test code = 760) [id number] 05:35:00 Test Item Value Reference Range Interpretation Comments MAGNESIUM (BEAKER) 2.0 mg/dL 1.6-2.6 Specimen slightly (test code = 627) hemolyzed BASIC METABOLIC [id number] 05:35:00 Test Item Value Reference Range Interpretation Comments SODIUM (BEAKER) 134 meq/L 136-145 L (test code = 381) POTASSIUM (BEAKER) 3.8 meq/L 3.5-5.1 Specimen slightly (test code = 379) hemolyzed CHLORIDE (BEAKER) 105 meq/L 98-107 (test code = 382) CO2 (BEAKER) (test 21 meq/L 22-29 L code = 355) BLOOD UREA NITROGEN 15 mg/dL 7-21 (BEAKER) (test code = 354) CREATININE (BEAKER) 0.81 mg/dL 0.57-1.25 Specimen slightly (test code = 358) hemolyzed GLUCOSE RANDOM 109 mg/dL 70-105 H (BEAKER) (test code = 652) CALCIUM (BEAKER) 8.1 mg/dL 8.4-10.2 L (test code = 697) EGFR (BEAKER) (test 91 mL/min/1.73 ESTIMA LAI GFR IS code = 1092) sq m NOT ACCURATE CREATININE CLEARANCE IN PREDICTING GLOMERULAR FILTRATION RATE . ESTIMATED GFR I S NOT APPLICABLE FOR DIALYSIS PATIEN TS. CALCIUM, [id number] 04:49:00 Test Item Value Reference Range Interpretation Comments CALCIUM IONIZED (BEAKER) (test 1.15 mmol/L 1.12-1.27 code = 698) PH, BLOOD (BEAKER) (test code = 7.48 1810) POCT-GLUCOSE [id number] 21:26:00 Test Item Value Reference Range Interpretation Comments POC-GLUCOSE METER 157 mg/dL 70-110 H : TESTED A T [facility] 6720 (BEAKER) (test code [facility], = 1538) [address]: Cut Off Saw Operator/Techni sneha ID = [id number] for JENNIFER CEDILLO POCT-GLUCOSE [id number] 16:30:00 Test Item Value Reference Range Interpretation Comments POC-GLUCOSE METER 146 mg/dL 70-110 H : TESTED A T [facility] 6720 (BEAKER) (test code = [facility], 1538) [address]: Cut Off Saw Operator/Techni sneha ID = [id number] for BE RNABE, LISA POCT-GLUCOSE [id number] 13:04:00 Test Item Value Reference Range Interpretation Comments POC-GLUCOSE METER 172 mg/dL 70-110 H : TESTED A T [facility] 6720 (BEAKER) (test code = [facility], 1538) [address]: Cut Off Saw Operator/Techni sneha ID = [id number] for BE RNABE, LISA SPUTUM CULTURE + GRAM [id number] 12:54:00 Test Item Value Reference Range Interpretation Comments CULTURE (BEAKER) 4+ Normal respiratory (test code = 1095) doris present GRAM STAIN RESULT 1+ White blood cells (BEAKER) (test code = seen 1123) GRAM STAIN RESULT 1+ gram negative rods (BEAKER) (test code = 87357) GRAM STAIN RESULT 2+ gram positive cocci (BEAKER) (test code = in chains, pairs and 26601) clusters GRAM STAIN RESULT 5-10 epithelial cells (BEAKER) (test code = 039548) RAD, CHEST, 1 VIEW, NON [id number] 11:50:00Reason for exam:->worsening coughShould this be performed at the bedside?->YesFINAL REPORT RAD, CHEST, 1 VIEW, NON DEPT INDICATION: worsening cough COMPARISON: Prior day's exam FINDINGS: Portable frontal view of the chest. IMPRESSION: Support Lines: None. Lungs and pleura: Lungs are clear. No effusion. No pneumothorax.Heart and mediastinum: Stable contours.Additional findings: None. Signed: JR Flannery Robert MDReport Verified Date/Time: 08/06/2019 11 :50:57 Reading Location: [facility] Radiology Reading Room [id number] 08:23:00 Test Item Value Reference Range Interpretation Comments PHOSPHORUS (BEAKER) (test code = 2.9 mg/dL 2.3-4.7 604) [id number] 08:23:00 Test Item Value Reference Range Interpretation Comments MAGNESIUM (BEAKER) (test code = 2.1 mg/dL 1.6-2.6 627) BASIC METABOLIC [id number] 08:23:00 Test Item Value Reference Range Interpretation Comments SODIUM (BEAKER) 135 meq/L 136-145 L (test code = 381) POTASSIUM (BEAKER) 3.6 meq/L 3.5-5.1 (test code = 379) CHLORIDE (BEAKER) 104 meq/L 98-107 (test code = 382) CO2 (BEAKER) (test 25 meq/L 22-29 code = 355) BLOOD UREA NITROGEN 18 mg/dL 7-21 (BEAKER) (test code = 354) CREATININE (BEAKER) 0.89 mg/dL 0.57-1.25 (test code = 358) GLUCOSE RANDOM 93 mg/dL 70-105 (BEAKER) (test code = 652) CALCIUM (BEAKER) 8.3 mg/dL 8.4-10.2 L (test code = 697) EGFR (BEAKER) (test 82 mL/min/1.73 ESTIMA LAI GFR IS code = 1092) sq m NOT ACCURATE CREATININE CLEARANCE IN PREDICTING GLOMERULAR FILTRATION RATE . ESTIMATED GFR I S NOT APPLICABLE FOR DIALYSIS PATIEN TS. [id number] 08:09:00 Test Item Value Reference Range Interpretation Comments PARTIAL THROMBOPLASTIN TIME 75.6 seconds 22.5-36.0 H (BEAKER) (test code = 760) CBC W/PLT COUNT & AUTO [id number] 08:03:00 Test Item Value Reference Range Interpretation Comments WHITE BLOOD CELL COUNT (BEAKER) 9.8 K/ L 3.5-10.5 (test code = 775) RED BLOOD CELL COUNT (BEAKER) 3.17 M/ L 4.63-6.08 L (test code = 761) HEMOGLOBIN (BEAKER) (test code = 10.0 GM/DL 13.7-17.5 L 410) HEMATOCRIT (BEAKER) (test code = 30.1 % 40.1-51.0 L 411) MEAN CORPUSCULAR VOLUME (BEAKER) 95.0 fL 79.0-92.2 H (test code = 753) MEAN CORPUSCULAR HEMOGLOBIN 31.5 pg 25.7-32.2 (BEAKER) (test code = 751) MEAN CORPUSCULAR HEMOGLOBIN CONC 33.2 GM/DL 32.3-36.5 (BEAKER) (test code = 752) RED CELL DISTRIBUTION WIDTH 13.1 % 11.6-14.4 (BEAKER) (test code = 412) PLATELET COUNT (BEAKER) (test 316 K/CU MM 150-450 code = 756) MEAN PLATELET VOLUME (BEAKER) 9.9 fL 9.4-12.4 (test code = 754) NUCLEATED RED BLOOD CELLS 0 /100 WBC 0-0 (BEAKER) (test code = 413) NEUTROPHILS RELATIVE PERCENT 63 % (BEAKER) (test code = 429) LYMPHOCYTES RELATIVE PERCENT 18 % (BEAKER) (test code = 430) MONOCYTES RELATIVE PERCENT 10 % (BEAKER) (test code = 431) EOSINOPHILS RELATIVE PERCENT 6 % (BEAKER) (test code = 432) BASOPHILS RELATIVE PERCENT 0 % (BEAKER) (test code = 437) NEUTROPHILS ABSOLUTE COUNT 6.18 K/ L 1.78-5.38 H (BEAKER) (test code = 670) LYMPHOCYTES ABSOLUTE COUNT 1.76 K/ L 1.32-3.57 (BEAKER) (test code = 414) MONOCYTES ABSOLUTE COUNT (BEAKER) 1.01 K/ L 0.30-0.82 H (test code = 415) EOSINOPHILS ABSOLUTE COUNT 0.56 K/ L 0.04-0.54 H (BEAKER) (test code = 416) BASOPHILS ABSOLUTE COUNT ([facility]) 0.04 K/ L 0.01-0.08 (test code = 417) IMMATURE GRANULOCYTES-RELATIVE 2 % 0-1 H PERCENT ([facility]) (test code = 2801) CALCIUM, [id number] 07:56:00 Test Item Value Reference Range Interpretation Comments CALCIUM IONIZED ([facility]) (test 1.14 mmol/L 1.12-1.27 code = 698) PH, BLOOD ([facility]) (test code = 7.48 1810) POCT-GLUCOSE [id number] 07:26:00 Test Item Value Reference Range Interpretation Comments POC-GLUCOSE METER 75 mg/dL 70-110 : TESTED A T [facility] 6720 ([facility]) (test code = [facility], 153) [address]: Cut Off Saw Operator/Techni sneha ID = [id number] for LISA NGUYEN POCT-GLUCOSE [id number] 21:06:00 Test Item Value Reference Range Interpretation Comments POC-GLUCOSE METER 161 mg/dL 70-110 H : Notified RN/MD: ([facility]) (test code = [facility] 1538[facility], [address]: Cut Off Saw Operator/Techni sneha ID = [id number] for SPENSER BENJAMIN BUSTILLOS POCT-GLUCOSE [id number] 17:16:00 Test Item Value Reference Range Interpretation Comments POC-GLUCOSE METER 167 mg/dL 70-110 H : TESTED A T [facility] 6720 ([facility]) (test code [facility], = 1538) [address]: Cut Off Saw Operator/Techni sneha ID = [id number] for MYA DEVI ALMODOVAR POCT-GLUCOSE [id number] 14:19:00 Test Item Value Reference Range Interpretation Comments POC-GLUCOSE METER 187 mg/dL 70-110 H : TESTED A T [facility] 6720 ([facility]) (test code = [facility], 153) [address]: Cut Off Saw Operator/Techni sneha ID = [id number] for MARIAH HOLLIS POCT-GLUCOSE [id number] 11:38:00 Test Item Value Reference Range Interpretation Comments POC-GLUCOSE METER 168 mg/dL 70-110 H : TESTED A T [facility] 6720 ([facility]) (test code [facility], = 1538) [address]: Cut Off Saw Operator/Techni sneha ID = [id number] for DEVI MELGAR RAD, CHEST, 1 VIEW, NON [id number] 10:52:00Reason for exam:->coughShould this be performed at the bedside?->YesFINAL REPORT RAD, CHEST, 1 VIEW, NON DEPT INDICATION: cough COMPARISON: 03 August 2019 FINDINGS: Portable frontal view of the chest. IMPRESSION: Support Lines: None Lungs and pleura: No new consolidation. No significant effusion. No pneumothorax.Heart and mediastinum: Stable contours. Additional findings: None. Signed: JR Flannery Robert MDReport Verified Date/Time: 08/05/2019 10:52:02 Reading Location: [facility] Radiology Reading Room POCT-GLUCOSE [id number] 07:50:00 Test Item Value Reference Range Interpretation Comments POC-GLUCOSE METER 115 mg/dL 70-110 H : [facility] (test code [facility], = 1538) [address]: Cut Off Saw Operator/Techni sneha ID = [id number] for DEVI MELGAR [id number] 05:43:00 Test Item Value Reference Range Interpretation Comments PHOSPHORUS (BEAKER) (test code = 2.4 mg/dL 2.3-4.7 604) [id number] 05:43:00 Test Item Value Reference Range Interpretation Comments MAGNESIUM (BEAKER) (test code = 2.1 mg/dL 1.6-2.6 627) BASIC METABOLIC [id number] 05:43:00 Test Item Value Reference Range Interpretation Comments SODIUM (BEAKER) 136 meq/L 136-145 (test code = 381) POTASSIUM (BEAKER) 3.4 meq/L 3.5-5.1 L (test code = 379) CHLORIDE (BEAKER) 102 meq/L 98-107 (test code = 382) CO2 (BEAKER) (test 24 meq/L 22-29 code = 355) BLOOD UREA NITROGEN 28 mg/dL 7-21 H (BEAKER) (test code = 354) CREATININE (BEAKER) 1.02 mg/dL 0.57-1.25 (test code = 358) GLUCOSE RANDOM 89 mg/dL 70-105 (BEAKER) (test code = 652) CALCIUM (BEAKER) 8.4 mg/dL 8.4-10.2 (test code = 697) EGFR (BEAKER) (test 70 mL/min/1.73 ESTIMA LAI GFR IS code = 1092) sq m NOT ACCURATE CREATININE CLEARANCE IN PREDICTING GLOMERULAR FILTRATION RATE . ESTIMATED GFR I S NOT APPLICABLE FOR DIALYSIS PATIEN TS. [id number] 05:34:00 Test Item Value Reference Range Interpretation Comments PARTIAL THROMBOPLASTIN TIME 68.2 seconds 22.5-36.0 H (BEAKER) (test code = 760) CBC W/PLT COUNT & AUTO [id number] 05:28:00 Test Item Value Reference Range Interpretation Comments WHITE BLOOD CELL COUNT (BEAKER) 12.4 K/ L 3.5-10.5 H (test code = 775) RED BLOOD CELL COUNT (BEAKER) 3.12 M/ L 4.63-6.08 L (test code = 761) HEMOGLOBIN (BEAKER) (test code = 9.8 GM/DL 13.7-17.5 L 410) HEMATOCRIT (BEAKER) (test code = 29.2 % 40.1-51.0 L 411) MEAN CORPUSCULAR VOLUME (BEAKER) 93.6 fL 79.0-92.2 H (test code = 753) MEAN CORPUSCULAR HEMOGLOBIN 31.4 pg 25.7-32.2 (BEAKER) (test code = 751) MEAN CORPUSCULAR HEMOGLOBIN CONC 33.6 GM/DL 32.3-36.5 (BEAKER) (test code = 752) RED CELL DISTRIBUTION WIDTH 12.9 % 11.6-14.4 (BEAKER) (test code = 412) PLATELET COUNT (BEAKER) (test 364 K/CU MM 150-450 code = 756) MEAN PLATELET VOLUME (BEAKER) 10.0 fL 9.4-12.4 (test code = 754) NUCLEATED RED BLOOD CELLS 0 /100 WBC 0-0 (BEAKER) (test code = 413) NEUTROPHILS RELATIVE PERCENT 70 % (BEAKER) (test code = 429) LYMPHOCYTES RELATIVE PERCENT 18 % (BEAKER) (test code = 430) MONOCYTES RELATIVE PERCENT 9 % (BEAKER) (test code = 431) EOSINOPHILS RELATIVE PERCENT 2 % (BEAKER) (test code = 432) BASOPHILS RELATIVE PERCENT 0 % (BEAKER) (test code = 437) NEUTROPHILS ABSOLUTE COUNT 8.59 K/ L 1.78-5.38 H (BEAKER) (test code = 670) LYMPHOCYTES ABSOLUTE COUNT 2.28 K/ L 1.32-3.57 (BEAKER) (test code = 414) MONOCYTES ABSOLUTE COUNT (BEAKER) 1.12 K/ L 0.30-0.82 H (test code = 415) EOSINOPHILS ABSOLUTE COUNT 0.19 K/ L 0.04-0.54 (BEAKER) (test code = 416) BASOPHILS ABSOLUTE COUNT (BEAKER) 0.04 K/ L 0.01-0.08 (test code = 417) IMMATURE GRANULOCYTES-RELATIVE 1 % 0-1 PERCENT (BEAKER) (test code = 2801) CALCIUM, [id number] 04:54:00 Test Item Value Reference Range Interpretation Comments CALCIUM IONIZED (BEAKER) (test 1.14 mmol/L 1.12-1.27 code = 698) PH, BLOOD (BEAKER) (test code = 7.49 1810) POCT-GLUCOSE [id number] 22:13:00 Test Item Value Reference Range Interpretation Comments POC-GLUCOSE METER 147 mg/dL 70-110 H : TESTED A T [facility] 6720 (BEAKER) (test code = [facility], 1538) [id number]: Cut Off Saw Operator/Techni sneha ID = [id number] for CO RDOVA, BON POCT-GLUCOSE [id number] 17:30:00 Test Item Value Reference Range Interpretation Comments POC-GLUCOSE METER 133 mg/dL 70-110 H : TESTED A T [facility] 6720 (BEAKER) (test code [facility], = 1538) 91473: Cut Off Saw Operator/Techni sneha ID = [id number] for TORR [place] ALMODOVARLINE POCT-GLUCOSE [id number] 11:58:00 Test Item Value Reference Range Interpretation Comments POC-GLUCOSE METER 175 mg/dL 70-110 H : TESTED A T [facility] 6720 (BEAKER) (test code [facility], = 1538) [id number]: Cut Off Saw Operator/Techni sneha ID = [id number] for DEVI MELGAR [id number] 10:22:00 Test Item Value Reference Range Interpretation Comments PARTIAL THROMBOPLASTIN TIME 91.0 seconds 22.5-36.0 H (BEAKER) (test code = 760) POCT-GLUCOSE [id number] 07:46:00 Test Item Value Reference Range Interpretation Comments POC-GLUCOSE METER 164 mg/dL 70-110 H : TESTED A T [facility] (BEAKER) ([facility] 59577: Cut Off Saw Operator/Techni sneha ID = [id number] for DEVI MELGAR [id number] 03:42:00 Test Item Value Reference Range Interpretation Comments PHOSPHORUS (BEAKER) (test code = 2.9 mg/dL 2.3-4.7 604) [id number] 03:42:00 Test Item Value Reference Range Interpretation Comments MAGNESIUM (BEAKER) (test code = 2.3 mg/dL 1.6-2.6 627) BASIC METABOLIC [id number] 03:42:00 Test Item Value Reference Range Interpretation Comments SODIUM (BEAKER) 132 meq/L 136-145 L (test code = 381) POTASSIUM (BEAKER) 4.1 meq/L 3.5-5.1 (test code = 379) CHLORIDE (BEAKER) 100 meq/L 98-107 (test code = 382) CO2 (BEAKER) (test 21 meq/L 22-29 L code = 355) BLOOD UREA NITROGEN 34 mg/dL 7-21 H (BEAKER) (test code = 354) CREATININE (BEAKER) 1.19 mg/dL 0.57-1.25 (test code = 358) GLUCOSE RANDOM 208 mg/dL 70-105 H (BEAKER) (test code = 652) CALCIUM (BEAKER) 8.7 mg/dL 8.4-10.2 (test code = 697) EGFR (BEAKER) (test 58 mL/min/1.73 ESTIMA LAI GFR IS code = 1092) sq m NOT ACCURATE CREATININE CLEARANCE IN PREDICTING GLOMERULAR FILTRATION RATE . ESTIMATED GFR I S NOT APPLICABLE FOR DIALYSIS PATIEN TS. [id number] 03:41:00 Test Item Value Reference Range Interpretation Comments PARTIAL THROMBOPLASTIN TIME 94.5 seconds 22.5-36.0 H (BEAKER) (test code = 760) CBC W/PLT COUNT & AUTO [id number] 03:38:00 Test Item Value Reference Range Interpretation Comments WHITE BLOOD CELL COUNT (BEAKER) 11.0 K/ L 3.5-10.5 H (test code = 775) RED BLOOD CELL COUNT (BEAKER) 3.26 M/ L 4.63-6.08 L (test code = 761) HEMOGLOBIN (BEAKER) (test code = 10.1 GM/DL 13.7-17.5 L 410) HEMATOCRIT (BEAKER) (test code = 30.7 % 40.1-51.0 L 411) MEAN CORPUSCULAR VOLUME (BEAKER) 94.2 fL 79.0-92.2 H (test code = 753) MEAN CORPUSCULAR HEMOGLOBIN 31.0 pg 25.7-32.2 (BEAKER) (test code = 751) MEAN CORPUSCULAR HEMOGLOBIN CONC 32.9 GM/DL 32.3-36.5 (BEAKER) (test code = 752) RED CELL DISTRIBUTION WIDTH 12.5 % 11.6-14.4 (BEAKER) (test code = 412) PLATELET COUNT (BEAKER) (test 369 K/CU MM 150-450 code = 756) MEAN PLATELET VOLUME (BEAKER) 9.8 fL 9.4-12.4 (test code = 754) NUCLEATED RED BLOOD CELLS 0 /100 WBC 0-0 (BEAKER) (test code = 413) NEUTROPHILS RELATIVE PERCENT 89 % (BEAKER) (test code = 429) LYMPHOCYTES RELATIVE PERCENT 7 % (BEAKER) (test code = 430) MONOCYTES RELATIVE PERCENT 2 % (BEAKER) (test code = 431) EOSINOPHILS RELATIVE PERCENT 0 % (BEAKER) (test code = 432) BASOPHILS RELATIVE PERCENT 0 % (BEAKER) (test code = 437) NEUTROPHILS ABSOLUTE COUNT 9.81 K/ L 1.78-5.38 H (BEAKER) (test code = 670) LYMPHOCYTES ABSOLUTE COUNT 0.82 K/ L 1.32-3.57 L (BEAKER) (test code = 414) MONOCYTES ABSOLUTE COUNT (BEAKER) 0.25 K/ L 0.30-0.82 L (test code = 415) EOSINOPHILS ABSOLUTE COUNT 0.00 K/ L 0.04-0.54 L (BEAKER) (test code = 416) BASOPHILS ABSOLUTE COUNT (BEAKER) 0.02 K/ L 0.01-0.08 (test code = 417) IMMATURE GRANULOCYTES-RELATIVE 1 % 0-1 PERCENT (BEAKER) (test code = 2801) CALCIUM, [id number] 03:31:00 Test Item Value Reference Range Interpretation Comments CALCIUM IONIZED (BEAKER) (test 1.12 mmol/L 1.12-1.27 code = 698) PH, BLOOD (BEAKER) (test code = 7.48 1810) POCT-GLUCOSE [id number] 22:06:00 Test Item Value Reference Range Interpretation Comments POC-GLUCOSE METER 235 mg/dL 70-110 H : TESTED A T [facility] 6720 (BEAKER) (test code = [place], 1538) [id number]: Cut Off Saw Operator/Techni sneha ID = [id number] for MISTY SIMPSON [id number] 19:35:00 Test Item Value Reference Range Interpretation Comments MAGNESIUM (BEAKER) 2.2 mg/dL 1.6-2.6 Specimen moderately (test code = 627) hemolyzed BASIC METABOLIC [id number] 19:11:00 Test Item Value Reference Range Interpretation Comments SODIUM (BEAKER) 131 meq/L 136-145 L (test code = 381) POTASSIUM (BEAKER) 4.3 meq/L 3.5-5.1 Specimen moderately (test code = 379) hemolyzed CHLORIDE (BEAKER) 98 meq/L 98-107 (test code = 382) CO2 (BEAKER) (test 24 meq/L 22-29 code = 355) BLOOD UREA NITROGEN 32 mg/dL 7-21 H (BEAKER) (test code = 354) CREATININE (BEAKER) 1.21 mg/dL 0.57-1.25 Specimen moderately (test code = 358) hemolyzed GLUCOSE RANDOM 210 mg/dL 70-105 H (BEAKER) (test code = 652) CALCIUM (BEAKER) 8.6 mg/dL 8.4-10.2 (test code = 697) EGFR (BEAKER) (test 57 mL/min/1.73 ESTIMA LAI GFR IS code = 1092) sq m NOT ACCURATE CREATININE CLEARANCE IN PREDICTING GLOMERULAR FILTRATION RATE . ESTIMATED GFR I S NOT APPLICABLE FOR DIALYSIS PATIEN TS. POCT-GLUCOSE [id number] 18:27:00 Test Item Value Reference Range Interpretation Comments POC-GLUCOSE METER 211 mg/dL 70-110 H : TESTED A T [facility] 6720 (BEAKER) (test code = [place] [facility], 1538) [id number]: Cut Off Saw Operator/Techni sneha ID = [id number] for BE LL, BEAULA [id number] 16:38:00 Test Item Value Reference Range Interpretation Comments MAGNESIUM (BEAKER) 2.3 mg/dL 1.6-2.6 Specimen slightly (test code = 627) hemolyzed [id number] 16:38:00 Test Item Value Reference Range Interpretation Comments PHOSPHORUS (BEAKER) 3.0 mg/dL 2.3-4.7 Specimen slightly (test code = 604) hemolyzed BASIC METABOLIC [id number] 16:38:00 Test Item Value Reference Range Interpretation Comments SODIUM (BEAKER) 133 meq/L 136-145 L (test code = 381) POTASSIUM (BEAKER) 4.1 meq/L 3.5-5.1 Specimen slightly (test code = 379) hemolyzed CHLORIDE (BEAKER) 98 meq/L 98-107 (test code = 382) CO2 (BEAKER) (test 24 meq/L 22-29 code = 355) BLOOD UREA NITROGEN 31 mg/dL 7-21 H (BEAKER) (test code = 354) CREATININE (BEAKER) 1.21 mg/dL 0.57-1.25 Specimen slightly (test code = 358) hemolyzed GLUCOSE RANDOM 175 mg/dL 70-105 H (BEAKER) (test code = 652) CALCIUM (BEAKER) 8.7 mg/dL 8.4-10.2 (test code = 697) EGFR (BEAKER) (test 57 mL/min/1.73 ESTIMA LAI GFR IS code = 1092) sq m NOT ACCURATE CREATININE CLEARANCE IN PREDICTING GLOMERULAR FILTRATION RATE . ESTIMATED GFR I S NOT APPLICABLE FOR DIALYSIS PATIEN TS. POCT-GLUCOSE [id number] 15:26:00 Test Item Value Reference Range Interpretation Comments POC-GLUCOSE METER 182 mg/dL 70-110 H : TESTED A T [facility] 6720 (BEAKER) (test code = [place] [facility], 1538) [id number]: Cut Off Saw Operator/Techni sneha ID = [id number] for BE LL, BEAULA RAD, CHEST, 1 VIEW, NON [id number] 10:56:00Reason for exam:->coughShould this be performed at the bedside?->YesFINAL REPORT RAD, CHEST, 1 VIEW, NON DEPT INDICATION: cough COMPARISON: 30 July 2019 FINDINGS: Portable frontal view of the chest. IMPRESSION: Support Lines: None Lungs and pleura: Lungs are clear. No pneumothorax.Heart and mediastinum: Stable contours. Additional findings: None. Signed: JR Flannery Robert MDReport Verified Date/Time: 08/03/2019 10:56:47 Reading Location: [facility] Radiology Reading Room -GLUCOSE [id number] 07:58:00 Test Item Value Reference Range Interpretation Comments POC-GLUCOSE METER 123 mg/dL 70-110 H : TESTED A T [facility] 6720 (BEAKER) (test code = [place] [facility], 1538) [id number]: Cut Off Saw Operator/Techni sneha ID = [id number] for BE LL, BEAULA [id number] 05:30:00 Test Item Value Reference Range Interpretation Comments MAGNESIUM (BEAKER) 2.5 mg/dL 1.6-2.6 Specimen moderately (test code = 627) hemolyzed [id number] 05:30:00 Test Item Value Reference Range Interpretation Comments PHOSPHORUS (BEAKER) 3.8 mg/dL 2.3-4.7 Specimen moderately (test code = 604) hemolyzed BASIC METABOLIC [id number] 05:30:00 Test Item Value Reference Range Interpretation Comments SODIUM (BEAKER) 132 meq/L 136-145 L (test code = 381) POTASSIUM (BEAKER) 4.7 meq/L 3.5-5.1 Specimen moderately (test code = 379) hemolyzed CHLORIDE (BEAKER) 96 meq/L 98-107 L (test code = 382) CO2 (BEAKER) (test 26 meq/L 22-29 code = 355) BLOOD UREA NITROGEN 32 mg/dL 7-21 H (BEAKER) (test code = 354) CREATININE (BEAKER) 1.42 mg/dL 0.57-1.25 H Specimen moderately (test code = 358) hemolyzed GLUCOSE RANDOM 134 mg/dL 70-105 H (BEAKER) (test code = 652) CALCIUM (BEAKER) 8.8 mg/dL 8.4-10.2 (test code = 697) EGFR (BEAKER) (test 48 mL/min/1.73 ESTIMA LAI GFR IS code = 1092) sq m NOT ACCURATE CREATININE CLEARANCE IN PREDICTING GLOMERULAR FILTRATION RATE . ESTIMATED GFR I S NOT APPLICABLE FOR DIALYSIS PATIEN TS. CBC W/PLT COUNT & AUTO [id number] 05:03:00 Test Item Value Reference Range Interpretation Comments WHITE BLOOD CELL COUNT (BEAKER) 15.3 K/ L 3.5-10.5 H (test code = 775) RED BLOOD CELL COUNT (BEAKER) 3.73 M/ L 4.63-6.08 L (test code = 761) HEMOGLOBIN (BEAKER) (test code = 11.5 GM/DL 13.7-17.5 L 410) HEMATOCRIT (BEAKER) (test code = 35.4 % 40.1-51.0 L 411) MEAN CORPUSCULAR VOLUME (BEAKER) 94.9 fL 79.0-92.2 H (test code = 753) MEAN CORPUSCULAR HEMOGLOBIN 30.8 pg 25.7-32.2 (BEAKER) (test code = 751) MEAN CORPUSCULAR HEMOGLOBIN CONC 32.5 GM/DL 32.3-36.5 (BEAKER) (test code = 752) RED CELL DISTRIBUTION WIDTH 12.5 % 11.6-14.4 (BEAKER) (test code = 412) PLATELET COUNT (BEAKER) (test 477 K/CU MM 150-450 H code = 756) MEAN PLATELET VOLUME (BEAKER) 9.7 fL 9.4-12.4 (test code = 754) NUCLEATED RED BLOOD CELLS 0 /100 WBC 0-0 (BEAKER) (test code = 413) NEUTROPHILS RELATIVE PERCENT 86 % (BEAKER) (test code = 429) LYMPHOCYTES RELATIVE PERCENT 8 % (BEAKER) (test code = 430) MONOCYTES RELATIVE PERCENT 4 % (BEAKER) (test code = 431) EOSINOPHILS RELATIVE PERCENT 1 % (BEAKER) (test code = 432) BASOPHILS RELATIVE PERCENT 0 % (BEAKER) (test code = 437) NEUTROPHILS ABSOLUTE COUNT 13.19 K/ L 1.78-5.38 H (BEAKER) (test code = 670) LYMPHOCYTES ABSOLUTE COUNT 1.15 K/ L 1.32-3.57 L (BEAKER) (test code = 414) MONOCYTES ABSOLUTE COUNT (BEAKER) 0.61 K/ L 0.30-0.82 (test code = 415) EOSINOPHILS ABSOLUTE COUNT 0.21 K/ L 0.04-0.54 (BEAKER) (test code = 416) BASOPHILS ABSOLUTE COUNT (BEAKER) 0.02 K/ L 0.01-0.08 (test code = 417) IMMATURE GRANULOCYTES-RELATIVE 1 % 0-1 PERCENT (BEAKER) (test code = 2801) CALCIUM, [id number] 05:00:00 Test Item Value Reference Range Interpretation Comments CALCIUM IONIZED (BEAKER) (test 1.15 mmol/L 1.12-1.27 code = 698) PH, BLOOD (BEAKER) (test code = 7.43 1810) [id number] 04:57:00 Test Item Value Reference Range Interpretation Comments PARTIAL THROMBOPLASTIN TIME 70.5 seconds 22.5-36.0 H (BEAKER) (test code = 760) POCT-GLUCOSE [id number] 21:22:00 Test Item Value Reference Range Interpretation Comments POC-GLUCOSE METER 157 mg/dL 70-110 H : TESTED A T [facility] 6720 (BEAKER) (test code [facility], = 1538) [id number]: Cut Off Saw Operator/Techni sneha ID = [id number] for JNENIFER CEDILLO POCT-GLUCOSE [id number] 20:48:00 Test Item Value Reference Range Interpretation Comments POC-GLUCOSE METER 154 mg/dL 70-110 H : TESTED A T [facility] 6720 (BEAKER) (test code = [place] [facility], 1538) [address]: Cut Off Saw Operator/Techni sneha ID = [id number] for As isCem [id number] 20:14:00 Test Item Value Reference Range Interpretation Comments MAGNESIUM (BEAKER) 2.5 mg/dL 1.6-2.6 Specimen slightly (test code = 627) hemolyzed [id number] 20:14:00 Test Item Value Reference Range Interpretation Comments PHOSPHORUS (BEAKER) 3.2 mg/dL 2.3-4.7 Specimen slightly (test code = 604) hemolyzed BASIC METABOLIC [id number] 20:14:00 Test Item Value Reference Range Interpretation Comments SODIUM (BEAKER) 133 meq/L 136-145 L (test code = 381) POTASSIUM (BEAKER) 4.3 meq/L 3.5-5.1 Specimen slightly (test code = 379) hemolyzed CHLORIDE (BEAKER) 96 meq/L 98-107 L (test code = 382) CO2 (BEAKER) (test 25 meq/L 22-29 code = 355) BLOOD UREA NITROGEN 24 mg/dL 7-21 H (BEAKER) (test code = 354) CREATININE (BEAKER) 1.23 mg/dL 0.57-1.25 Specimen slightly (test code = 358) hemolyzed GLUCOSE RANDOM 147 mg/dL 70-105 H (BEAKER) (test code = 652) CALCIUM (BEAKER) 9.0 mg/dL 8.4-10.2 (test code = 697) EGFR (BEAKER) (test 56 mL/min/1.73 ESTIMA LAI GFR IS code = 1092) sq m NOT ACCURATE CREATININE CLEARANCE IN PREDICTING GLOMERULAR FILTRATION RATE . ESTIMATED GFR I S NOT APPLICABLE FOR DIALYSIS PATIEN TS. POCT-GLUCOSE [id number] 18:17:00 Test Item Value Reference Range Interpretation Comments POC-GLUCOSE METER 140 mg/dL 70-110 H : TESTED A T [facility] 6720 (BEAKER) (test code = [place], 1538) [address]: Cut Off Saw Operator/Techni sneha ID = [id number] for ARCADIO BECKFORDCherie KATE [id number] 16:23:00 Test Item Value Reference Range Interpretation Comments MAGNESIUM (BEAKER) (test code = 2.4 mg/dL 1.6-2.6 627) [id number] 16:23:00 Test Item Value Reference Range Interpretation Comments POTASSIUM (BEAKER) (test code = 4.2 meq/L 3.5-5.1 379) POCT-GLUCOSE [id number] 15:17:00 Test Item Value Reference Range Interpretation Comments POC-GLUCOSE METER 207 mg/dL 70-110 H : TESTED A T [facility] 6720 (BEAKER) (test code = [place], 1538) [address]: Cut Off Saw Operator/Techni sneha ID = [id number] for KATE SHELTON POCT-GLUCOSE [id number] 14:53:00 Test Item Value Reference Range Interpretation Comments POC-GLUCOSE METER 118 mg/dL 70-110 H : TESTED A T [facility] 6720 (BEAKER) (test code = [place] [facility], 1538) [address]39: Cut Off Saw Operator/Techni sneha ID = [id number] for KATE SHELTON [id number] 01:33:00 Test Item Value Reference Range Interpretation Comments MAGNESIUM (BEAKER) 2.2 mg/dL 1.6-2.6 Specimen slightly (test code = 627) hemolyzed [id number] 01:33:00 Test Item Value Reference Range Interpretation Comments PHOSPHORUS (BEAKER) 3.3 mg/dL 2.3-4.7 Specimen slightly (test code = 604) hemolyzed COMPREHENSIVE METABOLIC [id number] 01:33:00 Test Item Value Reference Range Interpretation Comments TOTAL PROTEIN 6.9 gm/dL 6.0-8.3 Specimen sligh tly (BEAKER) (test code = hemoly zed 770) ALBUMIN (BEAKER) 3.5 g/dL 3.5-5.0 Specimen sl ightly (test code = 1145) hemolyzed ALKALINE PHOSPHATASE 115 U/L 40-150 (BEAKER) (test code = 346) BILIRUBIN TOTAL 0.5 mg/dL 0.2-1.2 Specimen sli ghtly (BEAKER) (test code = hemoly zed 377) SODIUM (BEAKER) (test 133 meq/L 136-145 L code = 381) POTASSIUM (BEAKER) 4.3 meq/L 3.5-5.1 Specimen slightly (test code = 379) hemolyzed CHLORIDE (BEAKER) 98 meq/L 98-107 (test code = 382) CO2 (BEAKER) (test 25 meq/L 22-29 code = 355) BLOOD UREA NITROGEN 23 mg/dL 7-21 H (BEAKER) (test code = 354) CREATININE (BEAKER) 1.34 mg/dL 0.57-1.25 H Specimen slightly (test code = 358) hemolyzed GLUCOSE RANDOM 132 mg/dL 70-105 H (BEAKER) (test code = 652) CALCIUM (BEAKER) 8.7 mg/dL 8.4-10.2 (test code = 697) AST (SGOT) (BEAKER) 31 U/L 5-34 Specimen slightly (test code = 353) hemolyzed ALT (SGPT) (BEAKER) 41 U/L 6-55 Specimen slightly (test code = 347) hemolyzed EGFR (BEAKER) (test 51 mL/min/1.73 ESTIMA LAI GFR IS code = 1092) sq m NOT ACCURATE CREATININE CLEARANCE IN PREDICTING GLOMERULAR FILTRATION RATE . ESTIMATED GFR I S NOT APPLICABLE FOR DIALYSIS PATIEN TS. [id number] 01:25:00 Test Item Value Reference Range Interpretation Comments PARTIAL THROMBOPLASTIN TIME 71.6 seconds 22.5-36.0 H (BEAKER) (test code = 760) CBC W/PLT COUNT & AUTO [id number] 01:25:00 Test Item Value Reference Range Interpretation Comments WHITE BLOOD CELL COUNT (BEAKER) 10.4 K/ L 3.5-10.5 (test code = 775) RED BLOOD CELL COUNT (BEAKER) 3.66 M/ L 4.63-6.08 L (test code = 761) HEMOGLOBIN (BEAKER) (test code = 11.4 GM/DL 13.7-17.5 L 410) HEMATOCRIT (BEAKER) (test code = 34.9 % 40.1-51.0 L 411) MEAN CORPUSCULAR VOLUME (BEAKER) 95.4 fL 79.0-92.2 H (test code = 753) MEAN CORPUSCULAR HEMOGLOBIN 31.1 pg 25.7-32.2 (BEAKER) (test code = 751) MEAN CORPUSCULAR HEMOGLOBIN CONC 32.7 GM/DL 32.3-36.5 (BEAKER) (test code = 752) RED CELL DISTRIBUTION WIDTH 12.3 % 11.6-14.4 (BEAKER) (test code = 412) PLATELET COUNT (BEAKER) (test 462 K/CU MM 150-450 H code = 756) MEAN PLATELET VOLUME (BEAKER) 9.6 fL 9.4-12.4 (test code = 754) NUCLEATED RED BLOOD CELLS 0 /100 WBC 0-0 (BEAKER) (test code = 413) NEUTROPHILS RELATIVE PERCENT 63 % (BEAKER) (test code = 429) LYMPHOCYTES RELATIVE PERCENT 20 % (BEAKER) (test code = 430) MONOCYTES RELATIVE PERCENT 9 % (BEAKER) (test code = 431) EOSINOPHILS RELATIVE PERCENT 7 % (BEAKER) (test code = 432) BASOPHILS RELATIVE PERCENT 1 % (BEAKER) (test code = 437) NEUTROPHILS ABSOLUTE COUNT 6.51 K/ L 1.78-5.38 H (BEAKER) (test code = 670) LYMPHOCYTES ABSOLUTE COUNT 2.09 K/ L 1.32-3.57 (BEAKER) (test code = 414) MONOCYTES ABSOLUTE COUNT (BEAKER) 0.88 K/ L 0.30-0.82 H (test code = 415) EOSINOPHILS ABSOLUTE COUNT 0.69 K/ L 0.04-0.54 H (BEAKER) (test code = 416) BASOPHILS ABSOLUTE COUNT (BEAKER) 0.06 K/ L 0.01-0.08 (test code = 417) IMMATURE GRANULOCYTES-RELATIVE 1 % 0-1 PERCENT (BEAKER) (test code = 2801) CALCIUM, [id number] 01:18:00 Test Item Value Reference Range Interpretation Comments CALCIUM IONIZED (BEAKER) (test 1.13 mmol/L 1.12-1.27 code = 698) PH, BLOOD (BEAKER) (test code = 7.46 1810) POCT-GLUCOSE [id number] 22:32:00 Test Item Value Reference Range Interpretation Comments POC-GLUCOSE METER 155 mg/dL 70-110 H : TESTED A T [facility] 6720 (BEAKER) (test code = [place], 1538) [address]: Cut Off Saw Operator/Techni sneha ID = [id number] for JUSTINO JERRY BASIC METABOLIC [id number] 17:50:00 Test Item Value Reference Range Interpretation Comments SODIUM (BEAKER) 133 meq/L 136-145 L (test code = 381) POTASSIUM (BEAKER) 4.8 meq/L 3.5-5.1 Specimen moderately (test code = 379) hemolyzed CHLORIDE (BEAKER) 98 meq/L 98-107 (test code = 382) CO2 (BEAKER) (test 26 meq/L 22-29 code = 355) BLOOD UREA NITROGEN 23 mg/dL 7-21 H (BEAKER) (test code = 354) CREATININE (BEAKER) 1.20 mg/dL 0.57-1.25 Specimen moderately (test code = 358) hemolyzed GLUCOSE RANDOM 151 mg/dL 70-105 H (BEAKER) (test code = 652) CALCIUM (BEAKER) 8.9 mg/dL 8.4-10.2 (test code = 697) EGFR (BEAKER) (test 58 mL/min/1.73 ESTIMA LAI GFR IS code = 1092) sq m NOT ACCURATE CREATININE CLEARANCE IN PREDICTING GLOMERULAR FILTRATION RATE . ESTIMATED GFR I S NOT APPLICABLE FOR DIALYSIS PATIEN TS. [id number] 17:46:00 Test Item Value Reference Range Interpretation Comments MAGNESIUM (BEAKER) 2.5 mg/dL 1.6-2.6 Specimen moderately (test code = 627) hemolyzed [id number] 17:46:00 Test Item Value Reference Range Interpretation Comments PHOSPHORUS (BEAKER) 2.7 mg/dL 2.3-4.7 Specimen moderately (test code = 604) hemolyzed [id number] 17:36:00 Test Item Value Reference Range Interpretation Comments PARTIAL THROMBOPLASTIN TIME 93.0 seconds 22.5-36.0 H (BEAKER) (test code = 760) POCT-GLUCOSE [id number] 17:29:00 Test Item Value Reference Range Interpretation Comments POC-GLUCOSE METER 150 mg/dL 70-110 H : TESTED A T [facility] 6720 (BEAKER) (test code = MANI [facility] [place], 1538) 126[address]: Cut Off Saw Operator/Techni sneha ID = [id number] for ROSELINE CARMONA [id number] 12:29:00 Test Item Value Reference Range Interpretation Comments PARTIAL THROMBOPLASTIN TIME 87.8 seconds 22.5-36.0 H (BEAKER) (test code = 760) POCT-GLUCOSE [id number] 12:20:00 Test Item Value Reference Range Interpretation Comments POC-GLUCOSE METER 185 mg/dL 70-110 H : TESTED A T [facility] 6720 (BEAKER) (test code = [place], 1538) 60742: Cut Off Saw Operator/Techni sneha ID = [id number] for KELSI MARY KATE KELSIGARRY BLOOD [id number] 11:00:00 Test Item Value Reference Range Interpretation Comments CULTURE (BEAKER) (test No growth in 5 days code = 1095) POCT-GLUCOSE [id number] 08:14:00 Test Item Value Reference Range Interpretation Comments POC-GLUCOSE METER 123 mg/dL 70-110 H : TESTED A T [facility] 6720 (BEAKER) (test code = [place], 1538) [address]: Cut Off Saw Operator/Techni sneha ID = [id number] for BE KELSI HARTMANNAULA BASIC METABOLIC [id number] 08:02:00 Test Item Value Reference Range Interpretation Comments SODIUM (BEAKER) 137 meq/L 136-145 (test code = 381) POTASSIUM (BEAKER) 3.5 meq/L 3.5-5.1 (test code = 379) CHLORIDE (BEAKER) 105 meq/L 98-107 (test code = 382) CO2 (BEAKER) (test 23 meq/L 22-29 code = 355) BLOOD UREA NITROGEN 20 mg/dL 7-21 (BEAKER) (test code = 354) CREATININE (BEAKER) 1.01 mg/dL 0.57-1.25 (test code = 358) GLUCOSE RANDOM 116 mg/dL 70-105 H (BEAKER) (test code = 652) CALCIUM (BEAKER) 7.7 mg/dL 8.4-10.2 L (test code = 697) EGFR (BEAKER) (test 71 mL/min/1.73 ESTIMA LAI GFR IS code = 1092) sq m NOT ACCURATE CREATININE CLEARANCE IN PREDICTING GLOMERULAR FILTRATION RATE . ESTIMATED GFR I S NOT APPLICABLE FOR DIALYSIS PATIEN TS. [id number] 08:00:00 Test Item Value Reference Range Interpretation Comments PHOSPHORUS (BEAKER) (test code = 2.6 mg/dL 2.3-4.7 604) [id number] 08:00:00 Test Item Value Reference Range Interpretation Comments MAGNESIUM (BEAKER) (test code = 2.0 mg/dL 1.6-2.6 627) CBC W/PLT COUNT & AUTO [id number] 05:56:00 Test Item Value Reference Range Interpretation Comments WHITE BLOOD CELL COUNT (BEAKER) 13.7 K/ L 3.5-10.5 H (test code = 775) RED BLOOD CELL COUNT (BEAKER) 3.48 M/ L 4.63-6.08 L (test code = 761) HEMOGLOBIN (BEAKER) (test code = 11.1 GM/DL 13.7-17.5 L 410) HEMATOCRIT (BEAKER) (test code = 33.1 % 40.1-51.0 L 411) MEAN CORPUSCULAR VOLUME (BEAKER) 95.1 fL 79.0-92.2 H (test code = 753) MEAN CORPUSCULAR HEMOGLOBIN 31.9 pg 25.7-32.2 (BEAKER) (test code = 751) MEAN CORPUSCULAR HEMOGLOBIN CONC 33.5 GM/DL 32.3-36.5 (BEAKER) (test code = 752) RED CELL DISTRIBUTION WIDTH 12.4 % 11.6-14.4 (BEAKER) (test code = 412) PLATELET COUNT (BEAKER) (test 488 K/CU MM 150-450 H code = 756) MEAN PLATELET VOLUME (BEAKER) 9.9 fL 9.4-12.4 (test code = 754) NUCLEATED RED BLOOD CELLS 0 /100 WBC 0-0 (BEAKER) (test code = 413) NEUTROPHILS RELATIVE PERCENT 70 % (BEAKER) (test code = 429) LYMPHOCYTES RELATIVE PERCENT 18 % (BEAKER) (test code = 430) MONOCYTES RELATIVE PERCENT 7 % (BEAKER) (test code = 431) EOSINOPHILS RELATIVE PERCENT 3 % (BEAKER) (test code = 432) BASOPHILS RELATIVE PERCENT 0 % (BEAKER) (test code = 437) NEUTROPHILS ABSOLUTE COUNT 9.66 K/ L 1.78-5.38 H (BEAKER) (test code = 670) LYMPHOCYTES ABSOLUTE COUNT 2.43 K/ L 1.32-3.57 (BEAKER) (test code = 414) MONOCYTES ABSOLUTE COUNT (BEAKER) 0.99 K/ L 0.30-0.82 H (test code = 415) EOSINOPHILS ABSOLUTE COUNT 0.44 K/ L 0.04-0.54 (BEAKER) (test code = 416) BASOPHILS ABSOLUTE COUNT (BEAKER) 0.05 K/ L 0.01-0.08 (test code = 417) IMMATURE GRANULOCYTES-RELATIVE 1 % 0-1 PERCENT (BEAKER) (test code = 2801) CALCIUM, [id number] 05:46:00 Test Item Value Reference Range Interpretation Comments CALCIUM IONIZED (BEAKER) (test 1.13 mmol/L 1.12-1.27 code = 698) PH, BLOOD (BEAKER) (test code = 7.43 1810) [id number] 05:46:00 Test Item Value Reference Range Interpretation Comments PARTIAL THROMBOPLASTIN TIME 108.2 seconds 22.5-36.0 H (BEAKER) (test code = 760) [id number] 01:19:00 Test Item Value Reference Range Interpretation Comments PARTIAL THROMBOPLASTIN TIME 103.4 seconds 22.5-36.0 H (BEAKER) (test code = 760) POCT-GLUCOSE [id number] 22:23:00 Test Item Value Reference Range Interpretation Comments POC-GLUCOSE METER 144 mg/dL 70-110 H : TESTED A T [facility] 6720 (BEAKER) (test code = [facility], 1538) [id number]: Cut Off Saw Operator/Techni sneha ID = [id number] for MERE ESQUEDAKIARRA [id number] 21:48:00 Test Item Value Reference Range Interpretation Comments MAGNESIUM (BEAKER) 2.0 mg/dL 1.6-2.6 Specimen slightly (test code = 627) hemolyzed [id number] 21:48:00 Test Item Value Reference Range Interpretation Comments POTASSIUM (BEAKER) 3.5 meq/L 3.5-5.1 Specimen slightly (test code = 379) hemolyzed [id number] 18:54:00 Test Item Value Reference Range Interpretation Comments PARTIAL THROMBOPLASTIN TIME 64.3 seconds 22.5-36.0 H (BEAKER) (test code = 760) POCT-GLUCOSE [id number] 17:59:00 Test Item Value Reference Range Interpretation Comments POC-GLUCOSE METER 183 mg/dL 70-110 H : TESTED A T [facility] (BEAKER) (test code = [facility], 1538) [id number]: Cut Off Saw Operator/Techni sneha ID = [id number] for JENNIFER CARRILLO [id number] 17:03:00 Test Item Value Reference Range Interpretation Comments POTASSIUM (BEAKER) (test code = 3.9 meq/L 3.5-5.1 379) [id number] 17:03:00 Test Item Value Reference Range Interpretation Comments MAGNESIUM (BEAKER) (test code = 2.0 mg/dL 1.6-2.6 627) [id number] 17:03:00 Test Item Value Reference Range Interpretation Comments PHOSPHORUS (BEAKER) (test code = 2.8 mg/dL 2.3-4.7 604) POCT-GLUCOSE [id number] 16:39:00 Test Item Value Reference Range Interpretation Comments POC-GLUCOSE METER 183 mg/dL 70-110 H : TESTED A T [facility] (BEAKER) (test code = [facility], 1538) [id number]: Cut Off Saw Operator/Techni sneha ID = [id number] for KATE SHELTON CREATININE, RANDOM [id number] 14:32:00 Test Item Value Reference Range Interpretation Comments CREATININE URINE (BEAKER) (test 25.9 mg/dL code = 375) Reference Range: No NormalsSODIUM, RANDOM [id number] 14:32:00 Test Item Value Reference Range Interpretation Comments SODIUM URINE (BEAKER) (test code = 107 meq/L 243) Reference Range: No NormalsUREA NITROGEN, RANDOM [id number] 14:32:00 Test Item Value Reference Range Interpretation Comments UREA NITROGEN URINE (BEAKER) (test 244 mg/dL code = 538) Reference Range: No [id number] 12:41:00 Test Item Value Reference Range Interpretation Comments PARTIAL THROMBOPLASTIN TIME 74.7 seconds 22.5-36.0 H (BEAKER) (test code = 760) POCT-GLUCOSE [id number] 12:21:00 Test Item Value Reference Range Interpretation Comments POC-GLUCOSE METER 228 mg/dL 70-110 H : TESTED A T [facility] 6720 (BEAKER) (test code = [facility], 1538) [address]: Cut Off Saw Operator/Techni sneha ID = [id number] for KATE SHELTON CALCIUM, [id number] 06:31:00 Test Item Value Reference Range Interpretation Comments CALCIUM IONIZED (BEAKER) (test 1.12 mmol/L 1.12-1.27 code = 698) PH, BLOOD (BEAKER) (test code = 7.46 1810) [id number] 06:14:00 Test Item Value Reference Range Interpretation Comments PHOSPHORUS (BEAKER) (test code = 3.0 mg/dL 2.3-4.7 604) [id number] 06:14:00 Test Item Value Reference Range Interpretation Comments MAGNESIUM (BEAKER) (test code = 2.0 mg/dL 1.6-2.6 627) COMPREHENSIVE METABOLIC [id number] 06:14:00 Test Item Value Reference Range Interpretation Comments TOTAL PROTEIN 6.8 gm/dL 6.0-8.3 (BEAKER) (test code = 770) ALBUMIN (BEAKER) 3.4 g/dL 3.5-5.0 L (test code = 1145) ALKALINE PHOSPHATASE 112 U/L 40-150 (BEAKER) (test code = 346) BILIRUBIN TOTAL 0.6 mg/dL 0.2-1.2 (BEAKER) (test code = 377) SODIUM (BEAKER) (test 131 meq/L 136-145 L code = 381) POTASSIUM (BEAKER) 3.7 meq/L 3.5-5.1 (test code = 379) CHLORIDE (BEAKER) 94 meq/L 98-107 L (test code = 382) CO2 (BEAKER) (test 27 meq/L 22-29 code = 355) BLOOD UREA NITROGEN 22 mg/dL 7-21 H (BEAKER) (test code = 354) CREATININE (BEAKER) 1.47 mg/dL 0.57-1.25 H (test code = 358) GLUCOSE RANDOM 226 mg/dL 70-105 H (BEAKER) (test code = 652) CALCIUM (BEAKER) 8.5 mg/dL 8.4-10.2 (test code = 697) AST (SGOT) (BEAKER) 20 U/L 5-34 (test code = 353) ALT (SGPT) (BEAKER) 23 U/L 6-55 (test code = 347) EGFR (BEAKER) (test 46 mL/min/1.73 ESTIMA LAI GFR IS code = 1092) sq m NOT ACCURATE CREATININE CLEARANCE IN PREDICTING GLOMERULAR FILTRATION RATE . ESTIMATED GFR I S NOT APPLICABLE FOR DIALYSIS PATIEN TS. CBC W/PLT COUNT & AUTO [id number] 05:36:00 Test Item Value Reference Range Interpretation Comments WHITE BLOOD CELL COUNT (BEAKER) 10.2 K/ L 3.5-10.5 (test code = 775) RED BLOOD CELL COUNT (BEAKER) 3.49 M/ L 4.63-6.08 L (test code = 761) HEMOGLOBIN (BEAKER) (test code = 10.9 GM/DL 13.7-17.5 L 410) HEMATOCRIT (BEAKER) (test code = 32.6 % 40.1-51.0 L 411) MEAN CORPUSCULAR VOLUME (BEAKER) 93.4 fL 79.0-92.2 H (test code = 753) MEAN CORPUSCULAR HEMOGLOBIN 31.2 pg 25.7-32.2 (BEAKER) (test code = 751) MEAN CORPUSCULAR HEMOGLOBIN CONC 33.4 GM/DL 32.3-36.5 (BEAKER) (test code = 752) RED CELL DISTRIBUTION WIDTH 12.0 % 11.6-14.4 (BEAKER) (test code = 412) PLATELET COUNT (BEAKER) (test 452 K/CU MM 150-450 H code = 756) MEAN PLATELET VOLUME (BEAKER) 9.5 fL 9.4-12.4 (test code = 754) NUCLEATED RED BLOOD CELLS 0 /100 WBC 0-0 (BEAKER) (test code = 413) NEUTROPHILS RELATIVE PERCENT 88 % (BEAKER) (test code = 429) LYMPHOCYTES RELATIVE PERCENT 7 % (BEAKER) (test code = 430) MONOCYTES RELATIVE PERCENT 4 % (BEAKER) (test code = 431) EOSINOPHILS RELATIVE PERCENT 0 % (BEAKER) (test code = 432) BASOPHILS RELATIVE PERCENT 0 % (BEAKER) (test code = 437) NEUTROPHILS ABSOLUTE COUNT 8.96 K/ L 1.78-5.38 H (BEAKER) (test code = 670) LYMPHOCYTES ABSOLUTE COUNT 0.74 K/ L 1.32-3.57 L (BEAKER) (test code = 414) MONOCYTES ABSOLUTE COUNT (BEAKER) 0.39 K/ L 0.30-0.82 (test code = 415) EOSINOPHILS ABSOLUTE COUNT 0.00 K/ L 0.04-0.54 L (BEAKER) (test code = 416) BASOPHILS ABSOLUTE COUNT (BEAKER) 0.01 K/ L 0.01-0.08 (test code = 417) IMMATURE GRANULOCYTES-RELATIVE 1 % 0-1 PERCENT (BEAKER) (test code = 2801) [id number] 05:27:00 Test Item Value Reference Range Interpretation Comments PARTIAL THROMBOPLASTIN TIME 109.1 seconds 22.5-36.0 H (BEAKER) (test code = 760) [id number] 22:40:00 Test Item Value Reference Range Interpretation Comments PARTIAL THROMBOPLASTIN TIME 82.3 seconds 22.5-36.0 H (BEAKER) (test code = 760) POCT-GLUCOSE [id number] 21:36:00 Test Item Value Reference Range Interpretation Comments POC-GLUCOSE METER 316 mg/dL 70-110 H : TESTED A T [facility] 6720 (BEAKER) (test code [facility], = 1538) [address]: Cut Off Saw Operator/Techni sneha ID = [id number] for DEVI MELGAR TISSUE [id number] 17:50:00Surgical Pathology Report Case: [id number] Authorizing Provider: Tre Reagan DPM Collected: 07/19/2019 1318 Ordering Location: [address] Received: 07/20/2019 0848 Service Pathologist: Bart Lam MD Specimens: A) - Soft Tissue, Other, great toe B) - Soft Tissue, Other, Ray partial First C) - Soft Tissue, Other, Clean Margin bone of right toe A. DIGIT, RIGHT GREAT TOE, AMPUTATION: - GANGRENOUS CHANGES - UNDERLYING BONE WITH NO PATHOLOGIC CHANGES.B. BONE AND SOFT TISSUE, RAY PARTIAL FIRST AMPUTATION: - BONE AND SOFT TISSUE WITH NO PATHOLOGIC CHANGESC. BONE, CLEAN MARGIN OF RIGHT TOE, EXCISION: - NO PATHOLOGIC DIAGNOSIS Signing Pathologist Direct Phone Line: [phone] signed by Bart Lam MD on 07/30/2019 at 5:50 [id number] X 2, [id number], [id number] X 3Gangrene A. Great toe. B. Ray partial first. C. Clean margin bone of right toeThe case is received fresh in three parts, each labeled with the patient's name and accession number.Part A. 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 The unguis is rios-yellow and detached. The distal 5.5 cm of the toe is blackened and mummified. There isskin slippage throughout. The mummified area is 0.3 cm from the closest skin margin (medial aspect).The specimen is sectioned, and the underlying bone is red-maroon and hemorrhagic. Patient Day Coordinator sections are submitted.Section code:A1, mummified toe to closest skin margin (blue), perpendicular sectionA2, mummified toe with underlying bone, following decalcification Part B. Labeled "ray partial first" is a transected metatarsal head measuring 4.1 cm in length and 2.3 cm in diameter. There is a small amount of attached, dusky, cuba-rios to lave soft tissue. Located subjacent to the articular surfaceand 2.2 cm from the bone margin is a 0.4 x 0.2 cm defect within the bone. The specimen is sectioned,and no gross lesions are identified. Patient Day Coordinator sections are submitted.Section code:B1, entire bone margin, en face, following decalcificationB2, customer service representative teacher of soft tissue adjacent to bone, following decalcification B3, area of defect in bone, following decalcification Part C. Labeled "clean margin bone of right toe" is a 0.6 cm in length and 2.5 x 2 cm transected portion of unoriented bone. The specimen is bisected, and each end is submitted en face in C1-C2, following decalcification. CG/ewPerformed.[id number] 17:25:00 Test Item Value Reference Range Interpretation Comments POTASSIUM (BEAKER) (test code = 3.8 meq/L 3.5-5.1 379) [id number] 17:25:00 Test Item Value Reference Range Interpretation Comments MAGNESIUM (BEAKER) (test code = 2.1 mg/dL 1.6-2.6 627) [id number] 17:25:00 Test Item Value Reference Range Interpretation Comments PHOSPHORUS (BEAKER) (test code = 3.2 mg/dL 2.3-4.7 604) POCT-GLUCOSE [id number] 16:39:00 Test Item Value Reference Range Interpretation Comments POC-GLUCOSE METER 233 mg/dL 70-110 H : Notified RN/MD: (BESPIKE) (test code = TESTED AT [facility] 6720 1538) [facility], [address]: Cut Off Saw Operator/Techni sneha ID = [id number] for KATE SHELTON POCT-GLUCOSE [id number] 12:02:00 Test Item Value Reference Range Interpretation Comments POC-GLUCOSE METER 137 mg/dL 70-110 H : TESTED A T [facility] 6720 (BEAKER) (test code = [facility], 1538) [address]: Cut Off Saw Operator/Techni sneha ID = [id number] for KATE SHELTON POCT-GLUCOSE [id number] 08:43:00 Test Item Value Reference Range Interpretation Comments POC-GLUCOSE METER 102 mg/dL 70-110 : TESTED A T [facility] 6720 (BEAKER) (test code = [facility], 1538) [address]: Cut Off Saw Operator/Techni sneha ID = [id number] for KATE SHELTON CBC W/PLT COUNT & AUTO [id number] 07:47:00 Test Item Value Reference Range Interpretation Comments WHITE BLOOD CELL COUNT (BEAKER) 10.7 K/ L 3.5-10.5 H (test code = 775) RED BLOOD CELL COUNT (BEAKER) 3.50 M/ L 4.63-6.08 L (test code = 761) HEMOGLOBIN (BEAKER) (test code = 11.0 GM/DL 13.7-17.5 L 410) HEMATOCRIT (BEAKER) (test code = 33.7 % 40.1-51.0 L 411) MEAN CORPUSCULAR VOLUME (BEAKER) 96.3 fL 79.0-92.2 H (test code = 753) MEAN CORPUSCULAR HEMOGLOBIN 31.4 pg 25.7-32.2 (BEAKER) (test code = 751) MEAN CORPUSCULAR HEMOGLOBIN CONC 32.6 GM/DL 32.3-36.5 (BEAKER) (test code = 752) RED CELL DISTRIBUTION WIDTH 12.2 % 11.6-14.4 (BEAKER) (test code = 412) PLATELET COUNT (BEAKER) (test 467 K/CU MM 150-450 H code = 756) MEAN PLATELET VOLUME (BEAKER) 9.4 fL 9.4-12.4 (test code = 754) NUCLEATED RED BLOOD CELLS 0 /100 WBC 0-0 (BEAKER) (test code = 413) NEUTROPHILS RELATIVE PERCENT 61 % (BEAKER) (test code = 429) LYMPHOCYTES RELATIVE PERCENT 20 % (BEAKER) (test code = 430) MONOCYTES RELATIVE PERCENT 9 % (BEAKER) (test code = 431) EOSINOPHILS RELATIVE PERCENT 8 % (BEAKER) (test code = 432) BASOPHILS RELATIVE PERCENT 1 % (BEAKER) (test code = 437) NEUTROPHILS ABSOLUTE COUNT 6.54 K/ L 1.78-5.38 H (BEAKER) (test code = 670) LYMPHOCYTES ABSOLUTE COUNT 2.10 K/ L 1.32-3.57 (BEAKER) (test code = 414) MONOCYTES ABSOLUTE COUNT (BEAKER) 1.00 K/ L 0.30-0.82 H (test code = 415) EOSINOPHILS ABSOLUTE COUNT 0.84 K/ L 0.04-0.54 H (BEAKER) (test code = 416) BASOPHILS ABSOLUTE COUNT (BEAKER) 0.10 K/ L 0.01-0.08 H (test code = 417) IMMATURE GRANULOCYTES-RELATIVE 1 % 0-1 PERCENT (BEAKER) (test code = 2801) [id number] 07:21:00 Test Item Value Reference Range Interpretation Comments MAGNESIUM (BEAKER) 1.7 mg/dL 1.6-2.6 Specimen slightly (test code = 627) hemolyzed [id number] 07:21:00 Test Item Value Reference Range Interpretation Comments PHOSPHORUS (BEAKER) 3.5 mg/dL 2.3-4.7 Specimen slightly (test code = 604) hemolyzed BASIC METABOLIC [id number] 07:21:00 Test Item Value Reference Range Interpretation Comments SODIUM (BEAKER) 137 meq/L 136-145 (test code = 381) POTASSIUM (BEAKER) 3.5 meq/L 3.5-5.1 Specimen slightly (test code = 379) hemolyzed CHLORIDE (BEAKER) 96 meq/L 98-107 L (test code = 382) CO2 (BEAKER) (test 33 meq/L 22-29 H code = 355) BLOOD UREA NITROGEN 13 mg/dL 7-21 (BEAKER) (test code = 354) CREATININE (BEAKER) 1.11 mg/dL 0.57-1.25 Specimen slightly (test code = 358) hemolyzed GLUCOSE RANDOM 102 mg/dL 70-105 (BEAKER) (test code = 652) CALCIUM (BEAKER) 8.4 mg/dL 8.4-10.2 (test code = 697) EGFR (BEAKER) (test 63 mL/min/1.73 ESTIMA LAI GFR IS code = 1092) sq m NOT ACCURATE CREATININE CLEARANCE IN PREDICTING GLOMERULAR FILTRATION RATE . ESTIMATED GFR I S NOT APPLICABLE FOR DIALYSIS PATIEN TS. B-TYPE NATRIURETIC FACTOR (BNP)2019-07-30 07:04:00 Test Item Value Reference Range Interpretation Comments B-TYPE NATRIURETIC PEPTIDE (BEAKER) 424 pg/mL 0-100 H (test code = 700) CALCIUM, [id number] 07:01:00 Test Item Value Reference Range Interpretation Comments CALCIUM IONIZED (BEAKER) (test 1.08 mmol/L 1.12-1.27 L code = 698) PH, BLOOD (BEAKER) (test code = 7.53 1810) [id number] 06:52:00 Test Item Value Reference Range Interpretation Comments PARTIAL THROMBOPLASTIN TIME 88.6 seconds 22.5-36.0 H (BEAKER) (test code = 760) RAD, CHEST, 1 VIEW, NON [id number] 04:38:00Reason for exam:->edemaShould this be performed at the bedside?->YesFINAL REPORT RAD, CHEST, 1 VIEW, NON DEPT INDICATION: edema COMPARISON: Radiograph the chest dated 07/28/2019. FINDINGS: Portable frontal view of the chest. IMPRESSION: Lungs and pleura: Unchanged interstitial pulmonary edema pulmonary vascular congestion. Persistent left retrocardiac airspace opacity and small bilateral pleural effusions. No pneumothorax.Heart and mediastinum: Stable contours. Additional findings: None. Signed: Candice Beckeport Verified Date/Time: 04:38:16 [id number] 23:51:00 Test Item Value Reference Range Interpretation Comments PARTIAL THROMBOPLASTIN TIME 77.0 seconds 22.5-36.0 H (BEAKER) (test code = 760) POCT-GLUCOSE [id number] 22:11:00 Test Item Value Reference Range Interpretation Comments POC-GLUCOSE METER 125 mg/dL 70-110 H : TESTED A T [facility] 6720 (BEAKER) (test code = [facility], 1538) [address]: Cut Off Saw Operator/Techni sneha ID = [id number] for KWAME CANNON [id number] 21:18:00 Test Item Value Reference Range Interpretation Comments PARTIAL THROMBOPLASTIN TIME 122.5 seconds 22.5-36.0 H (BEAKER) (test code = 760) POCT-GLUCOSE [id number] 18:05:00 Test Item Value Reference Range Interpretation Comments POC-GLUCOSE METER 184 mg/dL 70-110 H : TESTED A T [facility] 6720 (BEAKER) (test code = [place] [facility], 1538) [address]: Cut Off Saw Operator/Techni sneha ID = [id number] for HANNA PEPE [id number] 14:41:00 Test Item Value Reference Range Interpretation Comments PARTIAL THROMBOPLASTIN TIME 49.0 seconds 22.5-36.0 H (BEAKER) (test code = 760) POCT-GLUCOSE [id number] 13:15:00 Test Item Value Reference Range Interpretation Comments POC-GLUCOSE METER 138 mg/dL 70-110 H : TESTED A T [facility] 6720 (BEAKER) (test code = [place] [facility], 1538) [address]: Cut Off Saw Operator/Techni sneha ID = [id number] for HANNA PEPE RAD, ABDOMEN/KUB, 1 VIEW [id number] 11:58:00Reason for exam:->abdominal distnetionShould this be performed at the bedside?->YesFINAL REPORT RAD, ABDOMEN/KUB, 1 VIEW AP CLINICAL INDICATION: abdominal distneti on COMPARISON: None TECHNIQUE: Single, frontal radiograph of the abdomen. FINDINGS: The bowel gas pattern is nonspecific, but nonobstructive. Stomach is distended and air-filled. The regional skeleton is intact. IMPRESSION: Nonspecific, nonobstructive bowel gas pattern. Stomach is distended and air-quinton led and placement of NG tube is suggested. Signed: Lin Alvarado MDReport Verified Date/Time: 07/29/2019 11:58:28 Reading Location: [facility] Radiology Reading Room LIPID [id number] 11:35:00 Test Item Value Reference Range Interpretation Comments TRIGLYCERIDES (BEAKER) (test code = 126 mg/dL 540) CHOLESTEROL (BEAKER) (test code = 136 mg/dL 631) HDL CHOLESTEROL (BEAKER) (test code 28 mg/dL = 976) LDL CHOLESTEROL CALCULATED (BEAKER) 83 mg/dL (test code = 633) Triglyceride Reference Range: Low Risk <150 Borderline 150-199 High Risk 200- 499 Very High Risk >=500Cholesterol Reference Range: Low Risk <200 Borderline 200-239 High Risk >240HDL Cholesterol Reference Range: Low Risk >=60 High Risk <40LDL Cholesterol Reference Range: Optimal <100 Near Optimal 100-129 Borderline 130-159 High 160-189 Very High >=190PHOSPHORUS 2019-07-29 04:42:00 Test Item Value Reference Range Interpretation Comments PHOSPHORUS (BEAKER) (test code = 2.8 mg/dL 2.3-4.7 604) [id number] 04:42:00 Test Item Value Reference Range Interpretation Comments MAGNESIUM (BEAKER) (test code = 2.0 mg/dL 1.6-2.6 627) BASIC METABOLIC [id number] 04:42:00 Test Item Value Reference Range Interpretation Comments SODIUM (BEAKER) 136 meq/L 136-145 (test code = 381) POTASSIUM (BEAKER) 3.6 meq/L 3.5-5.1 (test code = 379) CHLORIDE (BEAKER) 97 meq/L 98-107 L (test code = 382) CO2 (BEAKER) (test 30 meq/L 22-29 H code = 355) BLOOD UREA NITROGEN 17 mg/dL 7-21 (BEAKER) (test code = 354) CREATININE (BEAKER) 1.23 mg/dL 0.57-1.25 (test code = 358) GLUCOSE RANDOM 120 mg/dL 70-105 H (BEAKER) (test code = 652) CALCIUM (BEAKER) 8.3 mg/dL 8.4-10.2 L (test code = 697) EGFR (BEAKER) (test 56 mL/min/1.73 ESTIMA LAI GFR IS code = 1092) sq m NOT ACCURATE CREATININE CLEARANCE IN PREDICTING GLOMERULAR FILTRATION RATE . ESTIMATED GFR I S NOT APPLICABLE FOR DIALYSIS PATIEN TS. POCT-GLUCOSE [id number] 04:14:00 Test Item Value Reference Range Interpretation Comments POC-GLUCOSE METER 122 mg/dL 70-110 H : TESTED A T [facility] 6720 (BEAKER) (test code [place], = 1538) [address]: Cut Off Saw Operator/Techni sneha ID = [id number] for YESICA JORDAN [id number] 03:57:00 Test Item Value Reference Range Interpretation Comments PARTIAL THROMBOPLASTIN TIME 46.8 seconds 22.5-36.0 H (BEAKER) (test code = 760) CBC W/PLT COUNT & AUTO [id number] 03:53:00 Test Item Value Reference Range Interpretation Comments WHITE BLOOD CELL COUNT (BEAKER) 12.1 K/ L 3.5-10.5 H (test code = 775) RED BLOOD CELL COUNT (BEAKER) 3.28 M/ L 4.63-6.08 L (test code = 761) HEMOGLOBIN (BEAKER) (test code = 10.2 GM/DL 13.7-17.5 L 410) HEMATOCRIT (BEAKER) (test code = 31.3 % 40.1-51.0 L 411) MEAN CORPUSCULAR VOLUME (BEAKER) 95.4 fL 79.0-92.2 H (test code = 753) MEAN CORPUSCULAR HEMOGLOBIN 31.1 pg 25.7-32.2 (BEAKER) (test code = 751) MEAN CORPUSCULAR HEMOGLOBIN CONC 32.6 GM/DL 32.3-36.5 (BEAKER) (test code = 752) RED CELL DISTRIBUTION WIDTH 12.2 % 11.6-14.4 (BEAKER) (test code = 412) PLATELET COUNT (BEAKER) (test 451 K/CU MM 150-450 H code = 756) MEAN PLATELET VOLUME (BEAKER) 9.4 fL 9.4-12.4 (test code = 754) NUCLEATED RED BLOOD CELLS 0 /100 WBC 0-0 (BEAKER) (test code = 413) NEUTROPHILS RELATIVE PERCENT 73 % (BEAKER) (test code = 429) LYMPHOCYTES RELATIVE PERCENT 12 % (BEAKER) (test code = 430) MONOCYTES RELATIVE PERCENT 8 % (BEAKER) (test code = 431) EOSINOPHILS RELATIVE PERCENT 5 % (BEAKER) (test code = 432) BASOPHILS RELATIVE PERCENT 1 % (BEAKER) (test code = 437) NEUTROPHILS ABSOLUTE COUNT 8.80 K/ L 1.78-5.38 H (BEAKER) (test code = 670) LYMPHOCYTES ABSOLUTE COUNT 1.45 K/ L 1.32-3.57 (BEAKER) (test code = 414) MONOCYTES ABSOLUTE COUNT (BEAKER) 1.01 K/ L 0.30-0.82 H (test code = 415) EOSINOPHILS ABSOLUTE COUNT 0.59 K/ L 0.04-0.54 H (BEAKER) (test code = 416) BASOPHILS ABSOLUTE COUNT (BEAKER) 0.07 K/ L 0.01-0.08 (test code = 417) IMMATURE GRANULOCYTES-RELATIVE 1 % 0-1 PERCENT (BEAKER) (test code = 2801) CALCIUM, [id number] 03:36:00 Test Item Value Reference Range Interpretation Comments CALCIUM IONIZED (BEAKER) (test 1.11 mmol/L 1.12-1.27 L code = 698) PH, BLOOD (BEAKER) (test code = 7.48 1810) POCT-GLUCOSE [id number] 00:00:00 Test Item Value Reference Range Interpretation Comments POC-GLUCOSE METER 145 mg/dL 70-110 H : Notified RN/MD: (BESPIKE) (test code = TESTED AT [facility] 6720 1538) [facility], [address]: Cut Off Saw Operator/Techni sneha ID = [id number] for SPENSER DONALDSONCHRIST MCR CT, BRAIN, WITHOUT [id number] 17:23:00FINAL REPORT CT, BRAIN, WITHOUT CONTRAST CLINICAL INDICATION: Stroke, follow upCOMPARISON: July 27, 2019 TECHNIQUE: Noncontrast axial CT imaging of the brain and skull. DOSE REDUCTION: Dose modulation, iterative reconstruction, and/or weight- based adjustment of the mA/kV was utilized to reduce the radiation dose to as low as reasonably achievable. FINDINGS:No intracranial hemorrhage, midline shift or mass effect. Midline structures are normally developed. Mild chronic microv ascular ischemic changes of the periventricular and subcortical white matter are present. 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 No hydrocephalus. Atherosclerotic calcification of the intracranial internal carotid and vertebral arteries. Orbits are within normal limits. Prior bilateral lens surgery No obstructive paranasal sinus disease. IMPRESSION: No acute intracranial findings If there is persistent clinical concern for intracranial pathology, MR examination is recommended for further characterization. Signed: Lin Alvaradoepstephon Verified Date/Time: 07/28/2019 17:23:50 Reading Location: [address] Neuro Reading Room -GLUCOSE [id number] 12:31:00 Test Item Value Reference Range Interpretation Comments POC-GLUCOSE METER 139 mg/dL 70-110 H : Notified RN/MD: (ELSA) (test code = TESTED AT [place] [address] 1538) [facility], [address]: Cut Off Saw Operator/Techni sneha ID = [id number] for Elo Coffman [id number] 10:23:00 Test Item Value Reference Range Interpretation Comments MAGNESIUM (BEAKER) (test code = 2.4 mg/dL 1.6-2.6 627) [id number] 10:20:00 Test Item Value Reference Range Interpretation Comments PARTIAL THROMBOPLASTIN TIME 39.2 seconds 22.5-36.0 H ([facility]) (test code = 760) [id number] 09:02:00 Test Item Value Reference Range Interpretation Comments RPR SCREEN ([facility]) (test code = Nonreactive Nonreactive 420) POCT-GLUCOSE [id number] 08:23:00 Test Item Value Reference Range Interpretation Comments POC-GLUCOSE METER 119 mg/dL 70-110 H : TESTED A T [facility] 67 ([facility]) (test code = [place] [facility], 1538) [address]: Cut Off Saw Operator/Techni sneha ID = [id number] for An Sissy braxton HEMOGLOBIN [id number] 08:07:00 Test Item Value Reference Range Interpretation Comments HEMOGLOBIN A1C (BEAKER) (test code = 6.5 % 4.3-6.1 H 368) TSH/FREE T4 IF [id number] 06:05:00 Test Item Value Reference Range Interpretation Comments THYROID STIMULATING HORMONE 4.39 uIU/mL 0.35-4.94 ([facility]) (test code = 772) VITAMIN B12 AND [id number] 06:05:00 Test Item Value Reference Range Interpretation Comments VITAMIN B12 (BEAKER) (test code = 229 pg/mL 213-816 774) FOLATE (BEAKER) (test code = 362) 9.0 ng/mL >=7.0 [id number] 05:48:00 Test Item Value Reference Range Interpretation Comments MAGNESIUM (BEAKER) 1.9 mg/dL 1.6-2.6 Specimen slightly (test code = 627) hemolyzed [id number] 05:48:00 Test Item Value Reference Range Interpretation Comments PHOSPHORUS (BEAKER) 3.6 mg/dL 2.3-4.7 Specimen slightly (test code = 604) hemolyzed COMPREHENSIVE METABOLIC [id number] 05:48:00 Test Item Value Reference Range Interpretation Comments TOTAL PROTEIN 6.4 gm/dL 6.0-8.3 Specimen sligh tly (BEAKER) (test code = hemoly zed 770) ALBUMIN (BEAKER) 3.2 g/dL 3.5-5.0 L Specimen sl ightly (test code = 1145) hemolyzed ALKALINE PHOSPHATASE 100 U/L 40-150 (BEAKER) (test code = 346) BILIRUBIN TOTAL 0.7 mg/dL 0.2-1.2 Specimen sli ghtly (BEAKER) (test code = hemoly zed 377) SODIUM (BEAKER) (test 134 meq/L 136-145 L code = 381) POTASSIUM (BEAKER) 4.0 meq/L 3.5-5.1 Specimen slightly (test code = 379) hemolyzed CHLORIDE (BEAKER) 97 meq/L 98-107 L (test code = 382) CO2 (BEAKER) (test 25 meq/L 22-29 code = 355) BLOOD UREA NITROGEN 16 mg/dL 7-21 (BEAKER) (test code = 354) CREATININE (BEAKER) 1.17 mg/dL 0.57-1.25 Specimen slightly (test code = 358) hemolyzed GLUCOSE RANDOM 146 mg/dL 70-105 H (BEAKER) (test code = 652) CALCIUM (BEAKER) 8.3 mg/dL 8.4-10.2 L (test code = 697) AST (SGOT) (BEAKER) 25 U/L 5-34 Specimen slightly (test code = 353) hemolyzed ALT (SGPT) (BEAKER) 19 U/L 6-55 Specimen slightly (test code = 347) hemolyzed EGFR (BEAKER) (test 60 mL/min/1.73 ESTIMA LAI GFR IS code = 1092) sq m NOT ACCURATE CREATININE CLEARANCE IN PREDICTING GLOMERULAR FILTRATION RATE . ESTIMATED GFR I S NOT APPLICABLE FOR DIALYSIS PATIEN TS. LIPID [id number] 05:48:00 Test Item Value Reference Range Interpretation Comments TRIGLYCERIDES (BEAKER) 97 mg/dL Speci men slightly (test code = 540) hemolyzed CHOLESTEROL (BEAKER) 137 mg/dL Specime n slightly (test code = 631) hemolyzed HDL CHOLESTEROL (BEAKER) 27 mg/dL (test code = 976) LDL CHOLESTEROL 91 mg/dL CALCULATED (BEAKER) (test code = 633) Triglyceride Reference Range: Low Risk <150 Borderline 150-199 High Risk 200- 499 Very High Risk >=500Cholesterol Reference Range: Low Risk <200 Borderline 200-239 High Risk >240HDL Cholesterol Reference Range: Low Risk >=60 High Risk <40LDL Cholesterol Reference Range: Optimal <100 Near Optimal 100-129 Borderline 130-159 High 160-189 Very High >=190CBC W/PLT COUNT & AUTO [id number] 05:29:00 Test Item Value Reference Range Interpretation Comments WHITE BLOOD CELL COUNT (BEAKER) 14.4 K/ L 3.5-10.5 H (test code = 775) RED BLOOD CELL COUNT (BEAKER) 3.47 M/ L 4.63-6.08 L (test code = 761) HEMOGLOBIN (BEAKER) (test code = 10.9 GM/DL 13.7-17.5 L 410) HEMATOCRIT (BEAKER) (test code = 32.9 % 40.1-51.0 L 411) MEAN CORPUSCULAR VOLUME (BEAKER) 94.8 fL 79.0-92.2 H (test code = 753) MEAN CORPUSCULAR HEMOGLOBIN 31.4 pg 25.7-32.2 (BEAKER) (test code = 751) MEAN CORPUSCULAR HEMOGLOBIN CONC 33.1 GM/DL 32.3-36.5 (BEAKER) (test code = 752) RED CELL DISTRIBUTION WIDTH 12.3 % 11.6-14.4 (BEAKER) (test code = 412) PLATELET COUNT (BEAKER) (test 474 K/CU MM 150-450 H code = 756) MEAN PLATELET VOLUME (BEAKER) 9.2 fL 9.4-12.4 L (test code = 754) NUCLEATED RED BLOOD CELLS 0 /100 WBC 0-0 (BEAKER) (test code = 413) NEUTROPHILS RELATIVE PERCENT 78 % (BEAKER) (test code = 429) LYMPHOCYTES RELATIVE PERCENT 9 % (BEAKER) (test code = 430) MONOCYTES RELATIVE PERCENT 9 % (BEAKER) (test code = 431) EOSINOPHILS RELATIVE PERCENT 1 % (BEAKER) (test code = 432) BASOPHILS RELATIVE PERCENT 1 % (BEAKER) (test code = 437) NEUTROPHILS ABSOLUTE COUNT 11.27 K/ L 1.78-5.38 H (BEAKER) (test code = 670) LYMPHOCYTES ABSOLUTE COUNT 1.35 K/ L 1.32-3.57 (BEAKER) (test code = 414) MONOCYTES ABSOLUTE COUNT (BEAKER) 1.34 K/ L 0.30-0.82 H (test code = 415) EOSINOPHILS ABSOLUTE COUNT 0.12 K/ L 0.04-0.54 (BEAKER) (test code = 416) BASOPHILS ABSOLUTE COUNT (BEAKER) 0.07 K/ L 0.01-0.08 (test code = 417) IMMATURE GRANULOCYTES-RELATIVE 2 % 0-1 H PERCENT (BEAKER) (test code = 2801) BLOOD GAS, [id number] 05:24:00 Test Item Value Reference Range Interpretation Comments PH ARTERIAL (BEAKER) (test code = 7.46 7.35-7.45 H 383) PCO2 ARTERIAL (BEAKER) (test code 42 mmHg 35-45 = 384) PO2 ARTERIAL (BEAKER) (test code = 97 mmHg 80-90 H 385) O2 SATURATION ARTERIAL (BEAKER) 97.6 % 96.0-97.0 H (test code = 386) HCO3 ARTERIAL (BEAKER) (test code 29 mmol/L 21-29 = 388) BASE EXCESS ARTERIAL (BEAKER) 5.1 mmol/L -2.0-3.0 H (test code = 387) PATIENT TEMPERATURE (BEAKER) (test 37.2 C code = 1818) FIO2 (BEAKER) (test code = 1819) 30.0 % CALCIUM, [id number] 05:24:00 Test Item Value Reference Range Interpretation Comments CALCIUM IONIZED (BEAKER) (test 1.08 mmol/L 1.12-1.27 L code = 698) PH, BLOOD (BEAKER) (test code = 7.46 1810) RAD, CHEST, 1 VIEW, NON [id number] 01:30:00Reason for exam:->cardiac arrestShould this be performed at the bedside?->YesFINAL REPORT Chest one view. Clinical history: cardiac arrest Comparison: Chest radiograph 07/27/2019/4:34 PM. Technique: A single frontal view of the chest was obtained. Findings:The cardiac silhouette is enlarged. The aorta is tortuous and atherosclerotic. There is persistent mild pulmonary edema. There are small bilateral pleural effusions. There is a left lower lobe opacity which may represent atelectasis and/or pneumonia. There is no pneumothorax. There is a partially imaged left total shoulder arthroplasty. Impression: Persistent mild pulmonary edema. Small bilateral pleural effusions. Cardiomegaly. Signed: Marc Small [facility] Verified Date/Time: 07/28/2019 01:30:50 SONTROPONIN [id number] 01:15:00 Test Item Value Reference Range Interpretation Comments TROPONIN I (BEAKER) (test code = 0.14 ng/mL 0.00-0.03 H 397) Troponin I (TnI) levels must be interpreted [...] failure, acidosis, acute neurological disease, and persistent tachyarrhythmia.[id number] 01:09:00 Test Item Value Reference Range Interpretation Comments PHOSPHORUS (BEAKER) (test code = 3.6 mg/dL 2.3-4.7 604) [id number] 01:09:00 Test Item Value Reference Range Interpretation Comments MAGNESIUM (BEAKER) (test code = 1.7 mg/dL 1.6-2.6 627) COMPREHENSIVE METABOLIC [id number] 01:09:00 Test Item Value Reference Range Interpretation Comments TOTAL PROTEIN 6.9 gm/dL 6.0-8.3 (BEAKER) (test code = 770) ALBUMIN (BEAKER) 3.5 g/dL 3.5-5.0 (test code = 1145) ALKALINE PHOSPHATASE 108 U/L 40-150 (BEAKER) (test code = 346) BILIRUBIN TOTAL 0.8 mg/dL 0.2-1.2 (BEAKER) (test code = 377) SODIUM (BEAKER) (test 135 meq/L 136-145 L code = 381) POTASSIUM (BEAKER) 3.9 meq/L 3.5-5.1 (test code = 379) CHLORIDE (BEAKER) 96 meq/L 98-107 L (test code = 382) CO2 (BEAKER) (test 26 meq/L 22-29 code = 355) BLOOD UREA NITROGEN 15 mg/dL 7-21 (BEAKER) (test code = 354) CREATININE (BEAKER) 1.25 mg/dL 0.57-1.25 (test code = 358) GLUCOSE RANDOM 147 mg/dL 70-105 H (BEAKER) (test code = 652) CALCIUM (BEAKER) 8.9 mg/dL 8.4-10.2 (test code = 697) AST (SGOT) (BEAKER) 21 U/L 5-34 (test code = 353) ALT (SGPT) (BEAKER) 18 U/L 6-55 (test code = 347) EGFR (BEAKER) (test 55 mL/min/1.73 ESTIMA LAI GFR IS code = 1092) sq m NOT ACCURATE CREATININE CLEARANCE IN PREDICTING GLOMERULAR FILTRATION RATE . ESTIMATED GFR I S NOT APPLICABLE FOR DIALYSIS PATIEN TS. LACTIC ACID, [id number] 01:05:00 Test Item Value Reference Range Interpretation Comments LACTATE BLOOD ARTERIAL (2) 0.8 mmol/L 0.5-2.2 (BEAKER) (test code = 2874) [id number] 01:04:00 Test Item Value Reference Range Interpretation Comments PARTIAL THROMBOPLASTIN TIME 38.6 seconds 22.5-36.0 H (BEAKER) (test code = 760) [id number] 01:03:00 Test Item Value Reference Range Interpretation Comments FIBRINOGEN LEVEL (BEAKER) (test 504 mg/dl 225-434 H code = 658) PROTHROMBIN [id number] 01:02:00 Test Item Value Reference Range Interpretation Comments PROTIME (BEAKER) (test code = 15.8 seconds 11.9-14.2 H 759) INR (BEAKER) (test code = 370) 1.3 <=5.9 Effective 12/30/2018: PT Reference Range ChangeNew: 11.9-14.2 Previous: 11.7- 14.7RECOMMENDED COUMADIN/WARFARIN INR THERAPY RANGESSTANDARD DOSE: 2.0-3.0 Includes: PROPHYLAXIS for venous thrombosis, systemic embolization; TREATMENT for venous thrombosis and/or pulmonary embolus.HIGH RISK: Target INR is 2.5-3.5 for patients wiht mechanical heart valves.PLATELET [id number] 01:01:00 Test Item Value Reference Range Interpretation Comments PLATELET COUNT (BEAKER) (test 517 K/CU MM 150-450 H code = 756) BLOOD GAS, [id number] 00:55:00 Test Item Value Reference Range Interpretation Comments PH ARTERIAL (BEAKER) (test code = 7.47 7.35-7.45 H 383) PCO2 ARTERIAL (BEAKER) (test code 40 mmHg 35-45 = 384) PO2 ARTERIAL (BEAKER) (test code = 130 mmHg 80-90 H 385) O2 SATURATION ARTERIAL (BEAKER) 98.8 % 96.0-97.0 H (test code = 386) HCO3 ARTERIAL (BEAKER) (test code 28 mmol/L 21-29 = 388) BASE EXCESS ARTERIAL (BEAKER) 4.4 mmol/L -2.0-3.0 H (test code = 387) PATIENT TEMPERATURE (BEAKER) (test 36.9 C code = 1818) FIO2 (BEAKER) (test code = 1819) 40.0 % CT, BRAIN, WITHOUT [id number] 00:01:00Acute mutism and decreased LOC after tpaFINAL REPORT EXAM: CT, BRAIN, WITHOUT CONTRAST CLINICAL INDICATION: Concern forstroke. TECHNIQUE: CT images from skull base to vertex without IV contrast. This exam was performed according to the departmental dose optimization program which includes automated exposure control, adjustment of the mA and/or kV according to the patient size, and/or use of an iterative reconstructiontechnique. COMPARISON: Exam from three hours prior FINDINGS: Parenchyma: No evidence of acute infarction. Remote right WAREHOUSE GUARD territory infarction. No hemorrhage. No mass or mass effect. Patchy and conflue nt areas of hypoattenuation are present in the cerebral white matter that are nonspecific but compatible with moderate chronic microvascular ischemic changes. Extra-axial [...] Palma Shaw MDReport Verified Date/Time: 07/28/2019 00:01:43 POCT- GLUCOSE [id number] 22:38:00 Test Item Value Reference Range Interpretation Comments POC-GLUCOSE METER 127 mg/dL 70-110 H : Notified RN/: (ELSA) (test code = TESTED AT [facility] 6720 1538) [facility], [address]: Cut Off Saw Operator/Techni sneha ID = [id number] for ANDRÉS ROBERTS BLOOD GAS, [id number] 21:19:00 Test Item Value Reference Range Interpretation Comments PH ARTERIAL (BEAKER) (test code = 7.49 7.35-7.45 H 383) PCO2 ARTERIAL (BEAKER) (test code 38 mmHg 35-45 = 384) PO2 ARTERIAL (BEAKER) (test code = 112 mmHg 80-90 H 385) O2 SATURATION ARTERIAL (BEAKER) 98.3 % 96.0-97.0 H (test code = 386) HCO3 ARTERIAL (BEAKER) (test code 28 mmol/L 21-29 = 388) BASE EXCESS ARTERIAL (BEAKER) 5.0 mmol/L -2.0-3.0 H (test code = 387) PATIENT TEMPERATURE (BEAKER) (test 37.6 C code = 1818) FIO2 (BEAKER) (test code = 1819) 28.0 % [id number] 20:21:00 Test Item Value Reference Range Interpretation Comments PARTIAL THROMBOPLASTIN TIME 42.0 seconds 22.5-36.0 H (BEAKER) (test code = 760) PROTHROMBIN [id number] 20:20:00 Test Item Value Reference Range Interpretation Comments PROTIME (BEAKER) (test code = 15.3 seconds 11.9-14.2 H 759) INR (BEAKER) (test code = 370) 1.3 <=5.9 Effective 12/30/2018: PT Reference Range ChangeNew: 11.9-14.2 Previous: 11.7- 14.7RECOMMENDED COUMADIN/WARFARIN INR THERAPY RANGESSTANDARD DOSE: 2.0-3.0 Includes: PROPHYLAXIS for venous thrombosis, systemic embolization; TREATMENT for venous thrombosis and/or pulmonary embolus.HIGH RISK: Target INR is 2.5-3.5 for patients wiht mechanical heart valves.CT, BRAIN, WITHOUT [id number] 20:17:00Bloody Vomiting and decreased speech/ LOC after tpaFINAL REPORT CT, BRAIN, WITHOUT CONTRAST INDICATION: Stroke, follow up TECHNIQUE : Noncontrast axial imaging was obtained from the vertex to the skull base. Axial images were reconstructed using a bone algorithm. DOSE REDUCTION: Dose modulation, iterative reconstruction, and/or weight-based adjustment of the mA/kV was utilized to reduce the radiation dose to as low as reasonably ac hievable. COMPARISON: Same day CT head at 1:48 PM FINDINGS: Intracranial: Exam is degraded by motion. Encephalomalacia in the right WAREHOUSE GUARD territory is again noted. Extensive foci of hypoattenuation within the periventricular and subcortical white matter are a nonspecific finding commonly attributed to ch ronic small vessel ischemic disease. Generalized cerebral atrophy with ex vacuo dilatation of the ventricular system proportionate to sulci. No intracranial hemorrhage or abnormal extra-axial collection. No evidence of acute territorial infarct. No mass effect. No hydrocephalus. Osseous structures: Nofracture. No suspicious lesion. Paranasal sinuses and mastoid air cells: No evidence of sinusitis. Mastoids are clear. Orbital contents: Globes are intact. IMPRESSION: No acute intracranial hemorrhage or territorial infarct. No significant change from six hours prior. If there is persistent clinical concern for intracranial pathology, MR examination is recommended for further characterization. Signed: aGlina Winters Verified Date/Time: 07/27/2019 20:17:48 PHOSPHORUS 2019-07-27 20:06:00 Test Item Value Reference Range Interpretation Comments PHOSPHORUS (BEAKER) (test code = 3.6 mg/dL 2.3-4.7 604) [id number] 20:06:00 Test Item Value Reference Range Interpretation Comments MAGNESIUM (BEAKER) (test code = 1.8 mg/dL 1.6-2.6 627) BASIC METABOLIC [id number] 20:06:00 Test Item Value Reference Range Interpretation Comments SODIUM (BEAKER) 134 meq/L 136-145 L (test code = 381) POTASSIUM (BEAKER) 4.0 meq/L 3.5-5.1 (test code = 379) CHLORIDE (BEAKER) 96 meq/L 98-107 L (test code = 382) CO2 (BEAKER) (test 28 meq/L 22-29 code = 355) BLOOD UREA NITROGEN 14 mg/dL 7-21 (BEAKER) (test code = 354) CREATININE (BEAKER) 1.22 mg/dL 0.57-1.25 (test code = 358) GLUCOSE RANDOM 124 mg/dL 70-105 H (BEAKER) (test code = 652) CALCIUM (BEAKER) 8.7 mg/dL 8.4-10.2 (test code = 697) EGFR (BEAKER) (test 57 mL/min/1.73 ESTIMA LAI GFR IS code = 1092) sq m NOT ACCURATE CREATININE CLEARANCE IN PREDICTING GLOMERULAR FILTRATION RATE . ESTIMATED GFR I S NOT APPLICABLE FOR DIALYSIS PATIEN TS. CBC W/PLT COUNT & AUTO [id number] 19:51:00 Test Item Value Reference Range Interpretation Comments WHITE BLOOD CELL COUNT (BEAKER) 15.0 K/ L 3.5-10.5 H (test code = 775) RED BLOOD CELL COUNT (BEAKER) 3.76 M/ L 4.63-6.08 L (test code = 761) HEMOGLOBIN (BEAKER) (test code = 11.6 GM/DL 13.7-17.5 L 410) HEMATOCRIT (BEAKER) (test code = 35.5 % 40.1-51.0 L 411) MEAN CORPUSCULAR VOLUME (BEAKER) 94.4 fL 79.0-92.2 H (test code = 753) MEAN CORPUSCULAR HEMOGLOBIN 30.9 pg 25.7-32.2 (BEAKER) (test code = 751) MEAN CORPUSCULAR HEMOGLOBIN CONC 32.7 GM/DL 32.3-36.5 (BEAKER) (test code = 752) RED CELL DISTRIBUTION WIDTH 12.0 % 11.6-14.4 (BEAKER) (test code = 412) PLATELET COUNT (BEAKER) (test 536 K/CU MM 150-450 H code = 756) MEAN PLATELET VOLUME (BEAKER) 9.0 fL 9.4-12.4 L (test code = 754) NUCLEATED RED BLOOD CELLS 0 /100 WBC 0-0 (BEAKER) (test code = 413) NEUTROPHILS RELATIVE PERCENT 81 % (BEAKER) (test code = 429) LYMPHOCYTES RELATIVE PERCENT 8 % (BEAKER) (test code = 430) MONOCYTES RELATIVE PERCENT 8 % (BEAKER) (test code = 431) EOSINOPHILS RELATIVE PERCENT 0 % (BEAKER) (test code = 432) BASOPHILS RELATIVE PERCENT 0 % (BEAKER) (test code = 437) NEUTROPHILS ABSOLUTE COUNT 12.09 K/ L 1.78-5.38 H (BEAKER) (test code = 670) LYMPHOCYTES ABSOLUTE COUNT 1.22 K/ L 1.32-3.57 L (BEAKER) (test code = 414) MONOCYTES ABSOLUTE COUNT (BEAKER) 1.22 K/ L 0.30-0.82 H (test code = 415) EOSINOPHILS ABSOLUTE COUNT 0.02 K/ L 0.04-0.54 L (BEAKER) (test code = 416) BASOPHILS ABSOLUTE COUNT (BEAKER) 0.05 K/ L 0.01-0.08 (test code = 417) IMMATURE GRANULOCYTES-RELATIVE 3 % 0-1 H PERCENT (BEAKER) (test code = 2801) POCT-GLUCOSE [id number] 19:13:00 Test Item Value Reference Range Interpretation Comments POC-GLUCOSE METER 109 mg/dL 70-110 : TESTED A T [facility] 6720 (BEAKER) (test code = [place], 1538) [address]: Cut Off Saw Operator/Techni sneha ID = [id number] for Elo Coffman RAD, CHEST, 1 VIEW, NON [id number] 18:25:00Reason for exam:->cough, concern for aspiratonShould this be performed at the bedside?->YesFINAL REPORT TECHNIQUE: Frontal view of the chest. INDICATION: cough, concern for aspiraton COMPARISON:12 hours prior IMPRESSION:Lines and hardware: Stable.Heart and mediastinum: Stable.Lungs and pleura: Pulmonary alveolar edema with peribronchial cuffing. Retrocardiac patchy airspace opacity. Small bilateral pleural effusions. Incomplete imaging of the left costophrenic angle. No pneumothorax.Soft tissues and bones: No acute abnormality. Signed: Alexandro Reagan MDReport Verified Date/Time: 07/27/2019 18:25:16 Reading Location: [address] Consult Reading Room CT, CTANGIO [id number] 14:44:00FINAL REPORT CLINICAL HISTORY: Neuro deficit, acute, stroke suspected TECHNIQUE: Contiguous contrast-enhanced axial images through the neck followed by axial images through the head with coronal and sagittal reformations to assess the arterial circulation. 3-D reconstructions wereperformed using a volume rendered technique separately on a workstation. This exam was performed according to the departmental dose optimization program which includes automated exposure control, adjustment of the mA and/or kV according to the patient size, and/or use of an iterative reconstruction technique. Stenosis evaluation reported in compliance with NASCET criteria. COMPARISON: Same day noncontrast CT head FINDINGS: CTA head:Exam is degraded by motion and suboptimal contrast bolus timing. Exam is nondiagnostic for aneurysm. No evidence major branch vessel occlusion. Extensive intracranial calcified atherosclerosis, with likely high- grade stenosis of the bilateral V4 segments and proximal basilar artery. The major intradural venous sinuses are patent. CTA neck:Great vessel origins: No occlusion or high-grade stenosis. Carotid arteries: No occlusion or high-grade stenosis. Vertebral arteries: No occlusion or high-grade stenosis. Advanced degenerative changes of the cervical spine. Diffuse thickening of the visualized proximal esophagus. Bilateral korks-uo-yrdewvtv pleural effusions. IMPRES YUNG:1.Essentially nondiagnostic exam for high-grade stenosis and aneurysm. No proximal branch vessel occlusion.2.Bilateral frdum-zu-vjlbyppv pleural effusions.3.Diffuse mural thickening of the visualized esophagus. Please correlate for esophagitis. Signed: Galina Wintersort Verified Date/Time: 09/27/2018 14:44:56 CT, CAROTID, [id number] 14:44:00FINAL REPORT CLINICAL HISTORY: Neuro deficit, acute, stroke suspected TECHNIQUE: Contiguous contrast-enhanced axial images through the neck followed by axial images through the head with coronal and sagittal reformations to assess the arterial circulation. 3-D reconstructions wereperformed using a volume rendered technique separately on a workstation. This exam was performed according to the departmental dose optimization program which includes automated exposure control, adjustment of the mA and/or kV according to the patient size, and/or use of an iterative reconstruction technique. Stenosis evaluation reported in compliance with NASCET criteria. COMPARISON: Same day noncontrast CT head FINDINGS: CTA head:Exam is degraded by motion and suboptimal contrast bolus timing. Exam is nondiagnostic for aneurysm. No evidence major branch vessel occlusion. Extensive intracranial calcified atherosclerosis, with likely high- grade stenosis of the bilateral V4 segments and proximal basilar artery. The major intradural venous sinuses are patent. CTA neck:Great vessel origins: No occlusion or high-grade stenosis. Carotid arteries: No occlusion or high-grade stenosis. Vertebral arteries: No occlusion or high-grade stenosis. Advanced degenerative changes of the cervical spine. Diffuse thickening of the visualized proximal esophagus. Bilateral bokii-le-jnpkueri pleural effusions. IMPRES YUNG:1.Essentially nondiagnostic exam for high-grade stenosis and aneurysm. No proximal branch vessel occlusion.2.Bilateral qress-ly-rgwqalxu pleural effusions.3.Diffuse mural thickening of the visualized esophagus. Please correlate for esophagitis. Signed: Galina Winters MDReport Verified Date/Time: 09/27/2018 14:44:56 CT, BRAIN, WITHOUT [id number] 13:48:00FINAL REPORT CT, BRAIN, WITHOUT CONTRAST INDICATION: Neuro deficit, acute, stroke suspected TECHNIQUE: Noncontrast axial imaging was obtained from the vertex to the skull base. Axial images were reconstructed using a bone algorithm. DOSE REDUCTION: Dose modulation, iterative reconstruction, and/or weight-based adjustment of the mA/kV was utilized to reduce the radiation dose to as low as reasonably achievable. COMPARISON: None. FINDINGS: [...] is recommended for further characterization. Signed: JR Prudencio, Stan Ovalles Verified Date/Time: 07/27/2019 13:48:02 Reading Location: [address] NeuroReading Room POCT- BLOOD GASES, [id number] 13:36:00 Test Item Value Reference Range Interpretation Comments TEMP, CELSIUS-POC 36.1 (BEAKER) (test code = 1834) FIO2-POC (BEAKER) 36 TESTED AT [facility] 6720 (test code = 1835) [facility] [place] [address] PH, ARTERIAL-POC 7.547 7.350-7.450 H (BEAKER) (test code = 1836) PCO2, ARTERIAL-POC 34.0 mm Hg 35.0-45.0 L (BEAKER) (test code = 1837) PO2, ARTERIAL-POC 59.0 mm Hg 80.0-90.0 L (BEAKER) (test code = 1838) SO2, ARTERIAL-POC 94.0 % 96.0-97.0 L (BEAKER) (test code = 1839) HCO3, ARTERIAL-POC 29.7 meq/L 21.0-29.0 H (BEAKER) (test code = 1840) BASE EXCESS, 7.0 meq/L -2.0-3.0 H ARTERIAL-POC (BEAKER) (test code = 1841) [id number] 13:36:00 Test Item Value Reference Range Interpretation Comments POC-SODIUM (BEAKER) 132 meq/L 135-148 L TESTED A T [place] [address] (test code = 1542) [facility] [address] [id number] 13:36:00 Test Item Value Reference Range Interpretation Comments POC-POTASSIUM 4.1 meq/L 3.6-5.5 TESTED AT [place] [address] ([facility]) (test code [facility] [address] = 1540) [id number] 13:36:00 Test Item Value Reference Range Interpretation Comments POC-GLUCOSE ([facility]) 142 mg/dL 70-110 H TESTED AT [place] [address] (test code = 1855) [facility] [address] POCT-CALCIUM [id number] 13:36:00 Test Item Value Reference Range Interpretation Comments POC-CALCIUM IONIZED 1.14 mmol/L 1.12-1.27 TESTED A [place] [address] ([facility]) (test code = [facility] 1536) [address] [id number] 13:36:00 Test Item Value Reference Range Interpretation Comments POC-HEMATOCRIT 34 % 40-50 L TESTED AT [place] [address] ([facility]) (test code = [facility] [address] 1852) [id number] 13:36:00 Test Item Value Reference Range Interpretation Comments POC-HEMOGLOBIN 11.6 g/dL 13.0-16.8 L TESTED AT [place] [address] ([facility]) (test code [facility] = 1856) [id number] AT [address] [address] TROPONIN [id number] 11:22:00 Test Item Value Reference Range Interpretation Comments TROPONIN I ([facility]) (test code = 0.04 ng/mL 0.00-0.03 H 397) Troponin I (TnI) levels must be interpreted [...] failure, acidosis, acute neurological disease, and persistent tachyarrhythmia.[id number] 10:34:00 Test Item Value Reference Range Interpretation Comments PROTIME (BEAKER) (test code = 14.9 seconds 11.9-14.2 H 759) INR (BEAKER) (test code = 370) 1.2 <=5.9 PARTIAL THROMBOPLASTIN TIME 37.3 seconds 22.5-36.0 H (BEAKER) (test code = 760) Effective 12/30/2018: PT Reference Range ChangeNew: 11.9-14.2 Previous: 11.7- 14.7RECOMMENDED COUMADIN/WARFARIN INR THERAPY RANGESSTANDARD DOSE: 2.0-3.0 Includes: PROPHYLAXIS for venous thrombosis, systemic embolization; TREATMENT for venous thrombosis and/or pulmonary embolus.HIGH RISK: Target INR is 2.5-3.5 for patients wiht mechanical heart valves.B-TYPE NATRIURETIC FACTOR (BNP) 2019-07-27 10:27:00 Test Item Value Reference Range Interpretation Comments B-TYPE NATRIURETIC PEPTIDE 1042 pg/mL 0-100 H (BEAKER) (test code = 700) POCT-LACTIC ACID, [id number] 09:46:00 Test Item Value Reference Range Interpretation Comments POC-LACTIC ACID, 1.8 mmol/L 0.4-1.3 H TESTED AT [facility] 6720 ARTERIAL (BEAKER) [facility] [place] (test code = 2804) [address] POCT-BLOOD GASES, [id number] 09:46:00 Test Item Value Reference Range Interpretation Comments TEMP, CELSIUS-POC 36.3 (BEAKER) (test code = 1834) FIO2-POC (BEAKER) 100 TESTED AT [facility] 6720 (test code = 1835) [facility] [address] PH, ARTERIAL-POC 7.482 7.350-7.450 H (BEAKER) (test code = 1836) PCO2, ARTERIAL-POC 32.8 mm Hg 35.0-45.0 L (BEAKER) (test code = 1837) PO2, ARTERIAL-POC 155.0 mm Hg 80.0-90.0 H (AKER) (test code = 1838) SO2, ARTERIAL-POC 100.0 % 96.0-97.0 H (AKER) (test code = 1839) HCO3, ARTERIAL-POC 24.7 meq/L 21.0-29.0 (BEAKER) (test code = 1840) BASE EXCESS, 1.0 meq/L -2.0-3.0 ARTERIAL-POC (BEAKER) (test code = 1841) [id number] 09:46:00 Test Item Value Reference Range Interpretation Comments POC-SODIUM ([facility]) 131 meq/L 135-148 L TESTED A [place] [address] (test code = 1542) [facility] [address] [id number] 09:46:00 Test Item Value Reference Range Interpretation Comments POC-POTASSIUM 3.6 meq/L 3.6-5.5 TESTED AT [place] [address] ([facility]) (test code [facility] [address] = 1540) [id number] 09:46:00 Test Item Value Reference Range Interpretation Comments POC-GLUCOSE ([facility]) 157 mg/dL 70-110 H TESTED AT [place] [address] (test code = 1855) [facility] [address] POCT-CALCIUM [id number] 09:46:00 Test Item Value Reference Range Interpretation Comments POC-CALCIUM IONIZED 1.12 mmol/L 1.12-1.27 TESTED A [place] [address] ([facility]) (test code = [facility] 1536) [address] [id number] 09:46:00 Test Item Value Reference Range Interpretation Comments POC-HEMATOCRIT 33 % 40-50 L TESTED AT [place] [address] ([facility]) (test code = [facility] [address] 8786) [id number] 09:46:00 Test Item Value Reference Range Interpretation Comments POC-HEMOGLOBIN 11.2 g/dL 13.0-16.8 L TESTED AT [place] [address] ([facility]) (test code [facility] = 1856) [id number] AT [place] [address] [place] [address] [id number] 06:40:00 Test Item Value Reference Range Interpretation Comments PHOSPHORUS (BEAKER) (test code = 2.8 mg/dL 2.3-4.7 604) [id number] 06:40:00 Test Item Value Reference Range Interpretation Comments MAGNESIUM (BEAKER) (test code = 1.9 mg/dL 1.6-2.6 627) BASIC METABOLIC [id number] 06:40:00 Test Item Value Reference Range Interpretation Comments SODIUM (BEAKER) 132 meq/L 136-145 L (test code = 381) POTASSIUM (BEAKER) 3.9 meq/L 3.5-5.1 (test code = 379) CHLORIDE (BEAKER) 98 meq/L 98-107 (test code = 382) CO2 (BEAKER) (test 24 meq/L 22-29 code = 355) BLOOD UREA NITROGEN 12 mg/dL 7-21 (BEAKER) (test code = 354) CREATININE (BEAKER) 1.08 mg/dL 0.57-1.25 (test code = 358) GLUCOSE RANDOM 106 mg/dL 70-105 H (BEAKER) (test code = 652) CALCIUM (BEAKER) 8.4 mg/dL 8.4-10.2 (test code = 697) EGFR (BEAKER) (test 65 mL/min/1.73 ESTIMA LAI GFR IS code = 1092) sq m NOT ACCURATE CREATININE CLEARANCE IN PREDICTING GLOMERULAR FILTRATION RATE . ESTIMATED GFR I S NOT APPLICABLE FOR DIALYSIS PATIEN TS. RAD, CHEST, 1 VIEW, NON [id number] 06:15:00Reason for exam:->edemaShould this be performed at the bedside?->YesFINAL REPORT INDICATION: edema COMPARISON: 07/22/2019 CTA chest TECHNIQUE: Single frontal view of the chest. IMPRESSION: Lungs and pleura: Diffuse pulmonary venous congestion with hazy borders compatible interstitial edema. No airspace consolidation. No sizable pleural effusion.Heart and mediastinum: Mildly enlarged heart. Unremarkable mediastinal contours.Osseous structures: No acute abnormality. Prior left shoulder arthroplasty.Other: None. Signed: Palma Shaweport Verified Date/Time: 07/27/2019 06:15:27 CALCIUM, [id number] 06:07:00 Test Item Value Reference Range Interpretation Comments CALCIUM IONIZED (BEAKER) (test 1.03 mmol/L 1.12-1.27 L code = 698) PH, BLOOD (BEAKER) (test code = 7.43 1810) B-TYPE NATRIURETIC FACTOR (BNP)2019-07-27 06:00:00 Test Item Value Reference Range Interpretation Comments B-TYPE NATRIURETIC PEPTIDE (BEAKER) 884 pg/mL 0-100 H (test code = 700) CBC (HEMOGRAM ONLY)2019-07-27 05:39:00 Test Item Value Reference Range Interpretation Comments WHITE BLOOD CELL COUNT (BEAKER) 11.6 K/ L 3.5-10.5 H (test code = 775) RED BLOOD CELL COUNT (BEAKER) 3.44 M/ L 4.63-6.08 L (test code = 761) HEMOGLOBIN (BEAKER) (test code = 10.9 GM/DL 13.7-17.5 L 410) HEMATOCRIT (BEAKER) (test code = 32.7 % 40.1-51.0 L 411) MEAN CORPUSCULAR VOLUME (BEAKER) 95.1 fL 79.0-92.2 H (test code = 753) MEAN CORPUSCULAR HEMOGLOBIN 31.7 pg 25.7-32.2 (BEAKER) (test code = 751) MEAN CORPUSCULAR HEMOGLOBIN CONC 33.3 GM/DL 32.3-36.5 (BEAKER) (test code = 752) RED CELL DISTRIBUTION WIDTH 12.2 % 11.6-14.4 (BEAKER) (test code = 412) PLATELET COUNT (BEAKER) (test 471 K/CU MM 150-450 H code = 756) MEAN PLATELET VOLUME (BEAKER) 9.4 fL 9.4-12.4 (test code = 754) NUCLEATED RED BLOOD CELLS 0 /100 WBC 0-0 (BEAKER) (test code = 413) POCT-GLUCOSE [id number] 22:03:00 Test Item Value Reference Range Interpretation Comments POC-GLUCOSE METER 164 mg/dL 70-110 H : TESTED A T [facility] 6720 (BEAKER) (test code = [facility], 1538) 85065: Cut Off Saw Operator/Techni sneha ID = [id number] for LESLY CHINCHILLA POCT-GLUCOSE [id number] 17:43:00 Test Item Value Reference Range Interpretation Comments POC-GLUCOSE METER 162 mg/dL 70-110 H : TESTED A T [facility] 6720 (BEAKER) (test code = [place] 467508) [address]: Cut Off Saw Operator/Techni sneha ID = [id number] for THANH BROOKSINE POCT-GLUCOSE [id number] 15:42:00 Test Item Value Reference Range Interpretation Comments POC-GLUCOSE METER 143 mg/dL 70-110 H : TESTED A T [facility] 6720 (BEAKER) (test code = [facility], [facility]8) [address]: Cut Off Saw Operator/Techni sneha ID = [id number] for THANH BROOKSINE POCT-GLUCOSE [id number] 08:20:00 Test Item Value Reference Range Interpretation Comments POC-GLUCOSE METER 73 mg/dL 70-110 : Notified RN/MD: TESTED (BEAKER) (test code = AT [facility] 67[address] [facility] 153) [facility], [facility] 30: Cut Off Saw Operator/Techni sneha ID = [id number] for EBONY GIVENS [id number] 06:35:00 Test Item Value Reference Range Interpretation Comments PHOSPHORUS (BEAKER) (test code = 2.9 mg/dL 2.3-4.7 604) [id number] 06:35:00 Test Item Value Reference Range Interpretation Comments MAGNESIUM (BEAKER) (test code = 2.0 mg/dL 1.6-2.6 627) BASIC METABOLIC [id number] 06:35:00 Test Item Value Reference Range Interpretation Comments SODIUM (BEAKER) 132 meq/L 136-145 L (test code = 381) POTASSIUM (BEAKER) 3.7 meq/L 3.5-5.1 (test code = 379) CHLORIDE (BEAKER) 99 meq/L 98-107 (test code = 382) CO2 (BEAKER) (test 21 meq/L 22-29 L code = 355) BLOOD UREA NITROGEN 13 mg/dL 7-21 (BEAKER) (test code = 354) CREATININE (BEAKER) 1.12 mg/dL 0.57-1.25 (test code = 358) GLUCOSE RANDOM 60 mg/dL 70-105 L (BEAKER) (test code = 652) CALCIUM (BEAKER) 8.4 mg/dL 8.4-10.2 (test code = 697) EGFR (BEAKER) (test 63 mL/min/1.73 ESTIMA LAI GFR IS code = 1092) sq m NOT ACCURATE CREATININE CLEARANCE IN PREDICTING GLOMERULAR FILTRATION RATE . ESTIMATED GFR I S NOT APPLICABLE FOR DIALYSIS PATIEN TS. POCT-GLUCOSE [id number] 22:24:00 Test Item Value Reference Range Interpretation Comments POC-GLUCOSE METER 100 mg/dL 70-110 : TESTED A T [facility] 6720 (BEAKER) (test code = [facility], 1538) 47637: Cut Off Saw Operator/Techni sneha ID = [id number] for PI FORREST LEO POCT-GLUCOSE [id number] 21:43:00 Test Item Value Reference Range Interpretation Comments POC-GLUCOSE METER 47 mg/dL 70-110 L : TESTED A T [facility] 6720 (BEAKER) (test code = [employer] [place], 1538) 68353: Cut Off Saw Operator/Techni sneha ID = [id number] for SAEID STHANHFORREST BASIC METABOLIC [id number] 17:45:00 Test Item Value Reference Range Interpretation Comments SODIUM (BEAKER) 133 meq/L 136-145 L (test code = 381) POTASSIUM (BEAKER) 4.0 meq/L 3.5-5.1 Specimen slightly (test code = 379) hemolyzed CHLORIDE (BEAKER) 99 meq/L 98-107 (test code = 382) CO2 (BEAKER) (test 24 meq/L 22-29 code = 355) BLOOD UREA NITROGEN 15 mg/dL 7-21 (BEAKER) (test code = 354) CREATININE (BEAKER) 1.23 mg/dL 0.57-1.25 Specimen slightly (test code = 358) hemolyzed GLUCOSE RANDOM 72 mg/dL 70-105 (BEAKER) (test code = 652) CALCIUM (BEAKER) 8.7 mg/dL 8.4-10.2 (test code = 697) EGFR (BEAKER) (test 56 mL/min/1.73 ESTIMA LAI GFR IS code = 1092) sq m NOT ACCURATE CREATININE CLEARANCE IN PREDICTING GLOMERULAR FILTRATION RATE . ESTIMATED GFR I S NOT APPLICABLE FOR DIALYSIS PATIEN TS. Notify renal if Cr > 1.6713 790 1032POCT-GLUCOSE [id number] 17:33:00 Test Item Value Reference Range Interpretation Comments POC-GLUCOSE METER 74 mg/dL 70-110 : TESTED A T [facility] 6720 (BEAKER) (test code = [facility], 1538) 10113: Cut Off Saw Operator/Techni sneha ID = [id number] for OPAL GRIMM POCT-GLUCOSE [id number] 12:22:00 Test Item Value Reference Range Interpretation Comments POC-GLUCOSE METER 83 mg/dL 70-110 : TESTED A T [facility] 6720 (BEAKER) (test code = [facility], 1538) 93925: Cut Off Saw Operator/Techni sneha ID = [id number] for Natalie Ibrahim POCT-GLUCOSE [id number] 10:03:00 Test Item Value Reference Range Interpretation Comments POC-GLUCOSE METER 138 mg/dL 70-110 H : TESTED A T [facility] 6720 (BEAKER) (test code = [facility], 1538) 40424: Cut Off Saw Operator/Techni sneha ID = [id number] for OPAL TRINIDAD POCT-GLUCOSE [id number] 07:24:00 Test Item Value Reference Range Interpretation Comments POC-GLUCOSE METER 72 mg/dL 70-110 : TESTED A T [facility] 6720 (BEAKER) (test code = [facility], 1538) 76498: Cut Off Saw Operator/Techni sneha ID = [id number] for DANIELLE STEELE, POCT-GLUCOSE [id number] 20:57:00 Test Item Value Reference Range Interpretation Comments POC-GLUCOSE METER 87 mg/dL 70-110 : TESTED A T [facility] 6720 (BEAKER) (test code = [facility], 1538) 82682: Cut Off Saw Operator/Techni sneha ID = [id number] for SAEID STHANHFORREST POCT-GLUCOSE [id number] 18:26:00 Test Item Value Reference Range Interpretation Comments POC-GLUCOSE METER 105 mg/dL 70-110 : TESTED A T [facility] 6720 (BEAKER) (test code = [facility], 1538) 42684: Cut Off Saw Operator/Techni sneha ID = [id number] for Hi ll, Natalie POCT-GLUCOSE [id number] 13:11:00 Test Item Value Reference Range Interpretation Comments POC-GLUCOSE METER 131 mg/dL 70-110 H : TESTED A T [facility] 6720 (BEAKER) (test code = [facility], 1538) 17175: Cut Off Saw Operator/Techni sneha ID = [id number] for Hi ll, Natalie BLOOD [id number] 09:02:00 Test Item Value Reference Range Interpretation Comments CULTURE (BEAKER) (test No growth in 5 days code = 1095) BLOOD [id number] 09:02:00 Test Item Value Reference Range Interpretation Comments CULTURE (BEAKER) (test No growth in 5 days code = 1095) POCT-GLUCOSE [id number] 08:56:00 Test Item Value Reference Range Interpretation Comments POC-GLUCOSE METER 147 mg/dL 70-110 H : TESTED A T [facility] 6720 (BEAKER) (test code = [facility], 1538) 43201: Cut Off Saw Operator/Techni sneha ID = [id number] for Hi ll, Natlaie CBC W/PLT COUNT & AUTO [id number] 06:03:00 Test Item Value Reference Range Interpretation Comments WHITE BLOOD CELL COUNT (BEAKER) 12.5 K/ L 3.5-10.5 H (test code = 775) RED BLOOD CELL COUNT (BEAKER) 3.43 M/ L 4.63-6.08 L (test code = 761) HEMOGLOBIN (BEAKER) (test code = 10.9 GM/DL 13.7-17.5 L 410) HEMATOCRIT (BEAKER) (test code = 32.9 % 40.1-51.0 L 411) MEAN CORPUSCULAR VOLUME (BEAKER) 95.9 fL 79.0-92.2 H (test code = 753) MEAN CORPUSCULAR HEMOGLOBIN 31.8 pg 25.7-32.2 (BEAKER) (test code = 751) MEAN CORPUSCULAR HEMOGLOBIN CONC 33.1 GM/DL 32.3-36.5 (BEAKER) (test code = 752) RED CELL DISTRIBUTION WIDTH 12.2 % 11.6-14.4 (BEAKER) (test code = 412) PLATELET COUNT (BEAKER) (test 471 K/CU MM 150-450 H code = 756) MEAN PLATELET VOLUME (BEAKER) 9.3 fL 9.4-12.4 L (test code = 754) NUCLEATED RED BLOOD CELLS 0 /100 WBC 0-0 (BEAKER) (test code = 413) NEUTROPHILS RELATIVE PERCENT 72 % (BEAKER) (test code = 429) LYMPHOCYTES RELATIVE PERCENT 15 % (BEAKER) (test code = 430) MONOCYTES RELATIVE PERCENT 10 % (BEAKER) (test code = 431) EOSINOPHILS RELATIVE PERCENT 2 % (BEAKER) (test code = 432) BASOPHILS RELATIVE PERCENT 1 % (BEAKER) (test code = 437) NEUTROPHILS ABSOLUTE COUNT 8.95 K/ L 1.78-5.38 H (BEAKER) (test code = 670) LYMPHOCYTES ABSOLUTE COUNT 1.83 K/ L 1.32-3.57 (BEAKER) (test code = 414) MONOCYTES ABSOLUTE COUNT (BEAKER) 1.24 K/ L 0.30-0.82 H (test code = 415) EOSINOPHILS ABSOLUTE COUNT 0.29 K/ L 0.04-0.54 (BEAKER) (test code = 416) BASOPHILS ABSOLUTE COUNT (BEAKER) 0.06 K/ L 0.01-0.08 (test code = 417) IMMATURE GRANULOCYTES-RELATIVE 1 % 0-1 PERCENT (BEAKER) (test code = 2801) [id number] 05:56:00 Test Item Value Reference Range Interpretation Comments PHOSPHORUS (BEAKER) (test code = 3.1 mg/dL 2.3-4.7 604) [id number] 05:56:00 Test Item Value Reference Range Interpretation Comments MAGNESIUM (BEAKER) (test code = 2.4 mg/dL 1.6-2.6 627) BASIC METABOLIC [id number] 05:56:00 Test Item Value Reference Range Interpretation Comments SODIUM (BEAKER) 135 meq/L 136-145 L (test code = 381) POTASSIUM (BEAKER) 4.5 meq/L 3.5-5.1 (test code = 379) CHLORIDE (BEAKER) 101 meq/L 98-107 (test code = 382) CO2 (BEAKER) (test 25 meq/L 22-29 code = 355) BLOOD UREA NITROGEN 17 mg/dL 7-21 (BEAKER) (test code = 354) CREATININE (BEAKER) 1.56 mg/dL 0.57-1.25 H (test code = 358) GLUCOSE RANDOM 131 mg/dL 70-105 H (BEAKER) (test code = 652) CALCIUM (BEAKER) 8.8 mg/dL 8.4-10.2 (test code = 697) EGFR (BEAKER) (test 43 mL/min/1.73 ESTIMA LAI GFR IS code = 1092) sq m NOT ACCURATE CREATININE CLEARANCE IN PREDICTING GLOMERULAR FILTRATION RATE . ESTIMATED GFR I S NOT APPLICABLE FOR DIALYSIS PATIEN TS. CREATINE KINASE (CK)2019-07-24 05:56:00 Test Item Value Reference Range Interpretation Comments CREATINE KINASE TOTAL (BEAKER) (test 84 U/L 29-200 code = 380) POCT-GLUCOSE [id number] 21:33:00 Test Item Value Reference Range Interpretation Comments POC-GLUCOSE METER 233 mg/dL 70-110 H : TESTED A T [facility] 6720 (BEAKER) (test code = [place], 1538) 326[address]: Cut Off Saw Operator/Techni sneha ID = [id number] for NZALES III, NIXON URINALYSIS W/ [id number] 19:42:00 Test Item Value Reference Range Interpretation Comments COLOR (BEAKER) (test code Yellow = 470) CLARITY (BEAKER) (test Clear code = 469) SPECIFIC GRAVITY UA 1.036 1.001-1.035 H (BEAKER) (test code = 468) PH UA (BEAKER) (test code 5.5 5.0-8.0 = 467) PROTEIN UA (BEAKER) (test 20 mg/dL Negative A code = 464) GLUCOSE UA (BEAKER) (test Negative Negative code = 365) KETONES UA (BEAKER) (test Trace Negative A code = 371) BILIRUBIN UA (BEAKER) Negative Negative (test code = 462) BLOOD UA (BEAKER) (test Negative Negative code = 461) NITRITE UA (BEAKER) (test Negative Negative code = 465) LEUKOCYTE ESTERASE UA Trace Negative A (BEAKER) (test code = 466) UROBILINOGEN UA (BEAKER) 0.2 mg/dL 0.2-1.0 (test code = 463) RBC UA (BEAKER) (test code < /HPF = 519) WBC UA (BEAKER) (test code 3 /HPF = 520) SQUAMOUS EPITHELIAL < /HPF (BEAKER) (test code = 516) AMORPHOUS CRYSTALS Rare (BEAKER) (test code = 1584) YEAST (BEAKER) (test code Rare = 1585) SOURCE(BEAKER) (test code Urine, Clean Catch = 2795) CREATININE, RANDOM [id number] 19:03:00 Test Item Value Reference Range Interpretation Comments CREATININE URINE (BEAKER) (test 117.9 mg/dL code = 375) Reference Range: No NormalsPROTEIN, RANDOM [id number] 19:03:00 Test Item Value Reference Range Interpretation Comments PROTEIN, URINE (BEAKER) (test code = 43 mg/dL 0-14 H 1569) SODIUM, RANDOM [id number] 19:03:00 Test Item Value Reference Range Interpretation Comments SODIUM URINE (BEAKER) (test code = 54 meq/L 243) Reference Range: No NormalsANAEROBIC [id number] 18:42:00 Test Item Value Reference Range Interpretation Comments CULTURE (BEAKER) A 4+ Same org anism has been (test code = 1095) isolated from culture(s) of the same body s ite and collection date . Repeat identification performed only after cons ultation with the [facility] microbiology laboratory.Refe r to previous cultur e ofBacteroides f ragilis ANAEROBIC [id number] 18:38:00 Test Item Value Reference Range Interpretation Comments CULTURE (BEAKER) (test A 3+ Ba cteroides fragilis code = 1095) POCT-GLUCOSE [id number] 13:34:00 Test Item Value Reference Range Interpretation Comments POC-GLUCOSE METER 97 mg/dL 70-110 : TESTED A T [facility] 6720 (BEAKER) (test code = MANI Yong [facility], 1538) 92008: Cut Off Saw Operator/Techni sneha ID = [id number] for Dennis Ibrahimira CT, CTA, [id number] 12:33:00Addendum BeginsREPORT STATUS:A I agree with the nonvascular findings detailed by Dr. Austin. Additional findings include: *Indeterminate 0.7 [...] be obtained in 12 months for reassessment thesenodules. Otherwise, no routine follow-up imaging recommended. Signed: Nathalie Alan MDReport Verified Date/Time: 07/23/2019 12:33:11 Reading Location: [facility] Diagnostic Imaging Reading Room - [place] [address] [id number] EndsAddendum BeginsREPORT STATUS:A ADDENDUM: Artifact is identifiedin the left shoulder level indicating prior joint replacement. This is well seen in the topogram. Signed: Cj Austin MDReport Verified Date/Time: 07/23/2019 08:31:[address] angiography of the thoracoabdominal aorta and pelvic arteries, Jul 22 INDICATION: This is a 83 year old male with a diagnosis of aortic stenosis, presents of preprocedure TAVR assessment. TECHNIQUE: Spiral acquisition before and during intravenous contrast administration using [employer] multidetector CT scanner. Images were obtained before and during the dynamic passage of intra venous contrast material. Multi-planar 3-D volume-rendering reconstruction was performed using an independent workstation interactively by the interpreting physician as well as the 3-D specialist for optimal visualisation of the thoracic aorta. Please refer to the contrast sheet scanned in the EPIC system for the amount and route of contrast given. This exam was performed according to our departmental dose-optimisation programme, which includes automated exposure control, adjustment of the mA and/orkV according to patient size and/or use of [...] set sent to PACS. Regarding the aorta, thereis minimal calcification seen in the aortic root and ascending thoracic aorta. The transverse arch and descending thoracic aorta is mild calcific and noncalcific atherosclerosis identified. No ectasia or aneurysmal dilation is seen. In [...] subclavian artery at image 73 at its origin,it measures approximately 8.3 x 8.8 mm in diameter. At image 25, the left subclavian artery measures7 mm in diameter. Regarding the right subclavian artery, mild passive indication identified proximally. At image 11, it measures 7 to 8 mm in diameter. Dimensions that may be helpful for TAVR as follows: There is only minimal calcification identified at the aortic root/ascending thoracic aorta The major and minor aortic annulus diameter measures 32.8 and 24.7 mm, respectively. The aortic annulus perimeter measured 87 mm and the cross- sectional area measures 575 mm2. The aortic annulus [...] R brochure, recommendation are as follows: CT perimeter between 56.5-62.8 mm (23 mm valve); 62.8-72.3 mm (26 mm valve); 72.3-81.7 mm (29 mm valve); and 81.7-94.2. mm (34mm valve). For reference purpose, per Lubna malhotra, recommendation are as follows: 23mm valveis recommended for CT perimeter between 62.8-72.3 mm; diameter between 20-23 mm; or area between 314-415.5 mm2. For 25mm valve, it is recommended for CT perimeter between 72.3-78.5 mm; diameter between 23-25 mm; or area between 415.5-490.9 mm2. For 27mm valve, it is recommended for CT perimeter between 78.5-84.8 mm; diameter between 25-27 mm; or area between 490.9-572.6 mm2. Agatston Score is 1425. The distance between the take off of the RCA and the annulus (systole): 18.0 mmThe distance between the take off of the LM and the annulus (systole): 14.0 mm The sinus of Valsalva diameter, RCC (systole): 34.6 mmThe sinus of Valsalva diameter, LCC (systole): 35.9 mmThe sinus of Valsalva diameter, NCC (systole): 33.4 mm The sinotubular junction measures, 30.6 x 32.6 mm mm. The aortic root angulation measures 32.4 degrees. The minimal and perpendicular abdominal aortic diameter measure 13.0 and 13.6 mm,respectively. There is no evidence of thoracoabdominal aortic aneurysm or stent placement present. The minimum and the perpendicular left common iliac artery measures 4.3 and 6.3 mm, respectively with mild tortuosity and at least moderate calcific atherosclerosis present, at image 163. The minimum andthe perpendicular left external iliac artery measures 5.9 and 6.3 mm, respectively with mild tortuosity and mild calcific atherosclerosis present. The minimum and the perpendicular left femoral artery measures 6.2 and 6.7 mm, respectively with mild tortuosity and mild calcific atherosclerosis present.The minimum and the perpendicular right common iliac artery measures 8.0 and 8.5 mm, respectively with mildly tortuosity and mild calcific atherosclerosis present. The minimum and the perpendicular right external iliac artery measures 6.6 and 7.6 mm, respectively with mild tortuosity and mild calcificatherosclerosis present. The minimum and the perpendicular right femoral artery measures 5.5 and 6.9mm, respectively with mild tortuosity and mild to moderate calcific atherosclerosis present, at image 251. NON-VASCULAR: The visualised thyroid gland is unremarkable. The chest wall and mediastinum appear normal. No significant adenopathy is identified. In the lung windows, no obvious endobronchial lesion is seen and no pleural effusion is identified. Mild degree off paraseptal emphysematous changes are seen, best seen in the upper lobes. Calcified granuloma is identified at image 106 of the left upper lobe. Dependent changes are seen in the lung bases. Tiny nodular opacities are seen in the right f issure, at image 155 indicating interfissural lymph node. Furthermore, in the right middle lobe, at image 196, linear opacity is identified, and by multiplanar reformation in the coronal orientation, it is uncertain if this could represent scarring. See snapshot for details. Please see arrows in PACS f or details. An addendum will be dictated thereafter, if needed. The abdomen has been dictated by theFormer[facility] Radiologist recently. See formal report for details. Small gallstones are seen in the gallbladder with no wall thickening identified. Renal stone is identified in the right kidney incompletely imaged and also possibly in the left kidney. In the bony windows, no acute bony pathology is seen.Some degenerative changes is noted. CONCLUSIONS: 1. Patient has a diagnosis of aortic stenosis. The aortic valve is tricuspid. The aortic Agatston Score is over 1400 and aortic valve area is not well measured. Minimal mitral annular calcification is seen superiorly. There is mild calcification seen inthe aortic root/ascending thoracic aorta. Dimensions that may be helpful for TAVR as described above. Regarding the pelvic arteries, there is at least moderate calcification identified the left common iliac artery with minimum luminal diameter of 4.3 x 6.3 mm. The right pelvic arteries has more optimal calibre, however, at the mid level of the right femoral head, at image 251, [id number] focal calcification is seen with minimum luminal diameter still 5.5 x 6.9 mm. However, in the very distal right common femoral artery, image 263, severe calcification is seen; this is located in the inferior aspect of the right femoral head. 2. Coronary artery origins are normal and diffuse calcification is identified.. 3. The central pulmonary artery is mildly prominent. There is no evidence of central pulmonary artery embolism. Mild pulmonary emphysematous changes are seen. Evidence of prior granulomatous disease. Pulmonary findings as described above. 4. Other findings as described above. 5. An addendum will be dictated regarding the non-vascular findings by the Electromechanical Inspector Radiologist. Signed: Cj Austin MDReport Verified Date/Time: 07/23/2019 08:10:11 POCT-GLUCOSE [id number] 10:13:00 Test Item Value Reference Range Interpretation Comments POC-GLUCOSE METER 83 mg/dL 70-110 : TESTED A T [facility] 6720 (BEAKER) (test code = [place] [facility], 1538) 14[address]: Cut Off Saw Operator/Techni sneha ID = [id number] for JUDY MCKEON BASIC METABOLIC [id number] 07:03:00 Test Item Value Reference Range Interpretation Comments SODIUM (BEAKER) 138 meq/L 136-145 (test code = 381) POTASSIUM (BEAKER) 4.0 meq/L 3.5-5.1 (test code = 379) CHLORIDE (BEAKER) 103 meq/L 98-107 (test code = 382) CO2 (BEAKER) (test 23 meq/L 22-29 code = 355) BLOOD UREA NITROGEN 15 mg/dL 7-21 (BEAKER) (test code = 354) CREATININE (BEAKER) 1.57 mg/dL 0.57-1.25 H (test code = 358) GLUCOSE RANDOM 54 mg/dL 70-105 L (BEAKER) (test code = 652) CALCIUM (BEAKER) 8.7 mg/dL 8.4-10.2 (test code = 697) EGFR (BEAKER) (test 42 mL/min/1.73 ESTIMA LAI GFR IS code = 1092) sq m NOT ACCURATE CREATININE CLEARANCE IN PREDICTING GLOMERULAR FILTRATION RATE . ESTIMATED GFR I S NOT APPLICABLE FOR DIALYSIS PATIEN TS. CBC (HEMOGRAM ONLY)2019-07-23 06:36:00 Test Item Value Reference Range Interpretation Comments WHITE BLOOD CELL COUNT (BEAKER) 13.1 K/ L 3.5-10.5 H (test code = 775) RED BLOOD CELL COUNT (BEAKER) 3.81 M/ L 4.63-6.08 L (test code = 761) HEMOGLOBIN (BEAKER) (test code = 11.8 GM/DL 13.7-17.5 L 410) HEMATOCRIT (BEAKER) (test code = 36.6 % 40.1-51.0 L 411) MEAN CORPUSCULAR VOLUME (BEAKER) 96.1 fL 79.0-92.2 H (test code = 753) MEAN CORPUSCULAR HEMOGLOBIN 31.0 pg 25.7-32.2 (BEAKER) (test code = 751) MEAN CORPUSCULAR HEMOGLOBIN CONC 32.2 GM/DL 32.3-36.5 L (BEAKER) (test code = 752) RED CELL DISTRIBUTION WIDTH 12.0 % 11.6-14.4 (BEAKER) (test code = 412) PLATELET COUNT (BEAKER) (test 503 K/CU MM 150-450 H code = 756) MEAN PLATELET VOLUME (BEAKER) 9.2 fL 9.4-12.4 L (test code = 754) NUCLEATED RED BLOOD CELLS 0 /100 WBC 0-0 (BEAKER) (test code = 413) POCT-GLUCOSE [id number] 22:08:00 Test Item Value Reference Range Interpretation Comments POC-GLUCOSE METER 83 mg/dL 70-110 : TESTED A T [facility] 6720 (BEAKER) (test code = [facility], 1538) [address]: Cut Off Saw Operator/Techni sneha ID = [id number] for JEAN CLAUDE LESLY POCT-GLUCOSE [id number] 12:05:00 Test Item Value Reference Range Interpretation Comments POC-GLUCOSE METER 196 mg/dL 70-110 H : TESTED A T [facility] 6720 (BEAKER) (test code = [facility], 1538) [address]: Cut Off Saw Operator/Techni sneha ID = [id number] for BRYNN HOLLIS SURGICALLY OBTAINED CULTURE + GRAM [id number] 11:48:00 Test Item Value Reference Range Interpretation Comments CULTURE A <1+ Same organi sm has (BEAKER) (test been isolated from code = 1095) cultures(s) of the same body site and collection date . Repeat identifi cation and susceptibil ity testing perform ed only after consultat ion with the [facility] microbiology laboratory.Refe r to previous cultur e ofPseudomonas aeruginosa GRAM STAIN <1+ WBCs RESULT (BEAKER) (test code = 1123) GRAM STAIN No organisms seen RESULT (BEAKER) (test code = 695430) SURGICALLY OBTAINED CULTURE + GRAM [id number] 11:47:00 Test Item Value Reference Interpretation Comments Range CULTURE (BEAKER) PROTEUS A 3+ Proteus (test code = 1095) MIRABILIS mirabilis Predominant organism Amikacin (test code S = 1) Ampicillin + S Sulbactam (test code = 6) Aztreonam (test S code = 32) Cefepime (test code S = 51) Cefoxitin (test S code = 68) Ceftazidime (test S code = 27) Ceftriaxone (test S code = 52) Ertapenem (test S code = 38) Gentamicin (test S code = 18) Levofloxacin (test S code = 22) Meropenem (test S code = 34) Nitrofurantoin R (test code = 23) Piperacillin + S Tazobactam (test code = 29) Tetracycline (test R code = 2) Tobramycin (test S code = 25) Trimethoprim + S Sulfamethoxazole (test code = 47) CULTURE (BEAKER) PSEUDOMONAS A 3+ Pseudomo zari (test code = 1095) AERUGINOSA aeruginos aPredominant organism Amikacin (test code Susceptible S = 1) 0-16 , Resistant <0 or >16 Aztreonam (test Susceptible S code = 32) 0-8 , Resistant <0 or >8 Cefepime (test code Susceptible S = 51) 0-8 , Resistant <0 or >8 Ceftazidime (test Susceptible S code = 27) 0-8 , Resistant <0 or >8 Ciprofloxacin (test Susceptible S code = 7) 0-0.5 , Resistant <0 or >.5 Gentamicin (test Susceptible S code = 18) 0-4 , Resistant <0 or >4 Levofloxacin (test Susceptible S code = 22) 0-1 , Resistant <0 or >1 Meropenem (test Susceptible S code = 34) 0-2 , Resistant <0 or >2 Piperacillin (test Susceptible S code = 24) 0-16 , Resistant <0 or >16 Piperacillin + Susceptible S Tazobactam (test 0-16 , code = 29) Resistant <0 or >16 Tobramycin (test Susceptible S code = 25) 0-4 , Resistant <0 or >4 GRAM STAIN RESULT No WBCs (BEAKER) (test code = 1123) GRAM STAIN RESULT No organisms (BEAKER) (test code seen = 545367) <1+ Skin doris<1+ Enteric organisms of >2 typesNo further workup performedPOCT-GLUCOSE [id number] 11:14:00 Test Item Value Reference Range Interpretation Comments POC-GLUCOSE METER 77 mg/dL 70-110 : TESTED A T [facility] 6720 (BEAKER) (test code = [facility], 1538) [address]: Cut Off Saw Operator/Techni sneha ID = [id number] for BRYNN ADAME POCT-GLUCOSE [id number] 11:06:00 Test Item Value Reference Range Interpretation Comments POC-GLUCOSE METER 144 mg/dL 70-110 H : TESTED A T [facility] 6720 (BEAKER) (test code = [facility], 1538) 38[address]: Cut Off Saw Operator/Techni sneha ID = [id number] for DIANA YAMELLESLY POCT-GLUCOSE [id number] 10:59:00 Test Item Value Reference Range Interpretation Comments POC-GLUCOSE METER 68 mg/dL 70-110 L : TESTED A T [facility] 6720 (BEAKER) (test code = [facility], 1538) 65[address]: Cut Off Saw Operator/Techni sneha ID = [id number] for LESLY SILVERIO BASIC METABOLIC [id number] 02:33:00 Test Item Value Reference Range Interpretation Comments SODIUM (BEAKER) 133 meq/L 136-145 L (test code = 381) POTASSIUM (BEAKER) 4.2 meq/L 3.5-5.1 (test code = 379) CHLORIDE (BEAKER) 103 meq/L 98-107 (test code = 382) CO2 (BEAKER) (test 22 meq/L 22-29 code = 355) BLOOD UREA NITROGEN 17 mg/dL 7-21 (BEAKER) (test code = 354) CREATININE (BEAKER) 1.29 mg/dL 0.57-1.25 H (test code = 358) GLUCOSE RANDOM 109 mg/dL 70-105 H (BEAKER) (test code = 652) CALCIUM (BEAKER) 8.4 mg/dL 8.4-10.2 (test code = 697) EGFR (BEAKER) (test 53 mL/min/1.73 ESTIMA LAI GFR IS code = 1092) sq m NOT ACCURATE CREATININE CLEARANCE IN PREDICTING GLOMERULAR FILTRATION RATE . ESTIMATED GFR I S NOT APPLICABLE FOR DIALYSIS PATIEN TS. CBC (HEMOGRAM ONLY)2019-07-22 01:55:00 Test Item Value Reference Range Interpretation Comments WHITE BLOOD CELL COUNT (BEAKER) 12.7 K/ L 3.5-10.5 H (test code = 775) RED BLOOD CELL COUNT (BEAKER) 3.61 M/ L 4.63-6.08 L (test code = 761) HEMOGLOBIN (BEAKER) (test code = 11.5 GM/DL 13.7-17.5 L 410) HEMATOCRIT (BEAKER) (test code = 34.4 % 40.1-51.0 L 411) MEAN CORPUSCULAR VOLUME (BEAKER) 95.3 fL 79.0-92.2 H (test code = 753) MEAN CORPUSCULAR HEMOGLOBIN 31.9 pg 25.7-32.2 (BEAKER) (test code = 751) MEAN CORPUSCULAR HEMOGLOBIN CONC 33.4 GM/DL 32.3-36.5 (BEAKER) (test code = 752) RED CELL DISTRIBUTION WIDTH 11.8 % 11.6-14.4 (BEAKER) (test code = 412) PLATELET COUNT (BEAKER) (test 435 K/CU MM 150-450 code = 756) MEAN PLATELET VOLUME (BEAKER) 9.0 fL 9.4-12.4 L (test code = 754) NUCLEATED RED BLOOD CELLS 0 /100 WBC 0-0 (BEAKER) (test code = 413) POCT-GLUCOSE [id number] 17:15:00 Test Item Value Reference Range Interpretation Comments POC-GLUCOSE METER 89 mg/dL 70-110 : TESTED A T [facility] 6720 (BEAKER) (test code = [place], 1538) 30[address]: Cut Off Saw Operator/Techni sneha ID = [id number] for BRYNN ADAME POCT-GLUCOSE [id number] 12:21:00 Test Item Value Reference Range Interpretation Comments POC-GLUCOSE METER 140 mg/dL 70-110 H : TESTED A T [facility] 6720 (BEAKER) (test code = [place], 1538) [address]: Cut Off Saw Operator/Techni sneha ID = [id number] for BRYNN HOLLIS POCT-GLUCOSE [id number] 07:40:00 Test Item Value Reference Range Interpretation Comments POC-GLUCOSE METER 81 mg/dL 70-110 : TESTED A T [facility] 6720 (BEAKER) (test code = [place], 1538) [address]: Cut Off Saw Operator/Techni sneha ID = [id number] for BRYNN ADAME BASIC METABOLIC [id number] 07:18:00 Test Item Value Reference Range Interpretation Comments SODIUM (BEAKER) 131 meq/L 136-145 L (test code = 381) POTASSIUM (BEAKER) 4.1 meq/L 3.5-5.1 (test code = 379) CHLORIDE (BEAKER) 100 meq/L 98-107 (test code = 382) CO2 (BEAKER) (test 24 meq/L 22-29 code = 355) BLOOD UREA NITROGEN 17 mg/dL 7-21 (BEAKER) (test code = 354) CREATININE (BEAKER) 0.83 mg/dL 0.57-1.25 (test code = 358) GLUCOSE RANDOM 75 mg/dL 70-105 (BEAKER) (test code = 652) CALCIUM (BEAKER) 8.3 mg/dL 8.4-10.2 L (test code = 697) EGFR (BEAKER) (test 88 mL/min/1.73 ESTIMA LAI GFR IS code = 1092) sq m NOT ACCURATE CREATININE CLEARANCE IN PREDICTING GLOMERULAR FILTRATION RATE . ESTIMATED GFR I S NOT APPLICABLE FOR DIALYSIS PATIEN TS. CBC (HEMOGRAM ONLY)2019-07-21 06:28:00 Test Item Value Reference Range Interpretation Comments WHITE BLOOD CELL COUNT (BEAKER) 12.2 K/ L 3.5-10.5 H (test code = 775) RED BLOOD CELL COUNT (BEAKER) 3.63 M/ L 4.63-6.08 L (test code = 761) HEMOGLOBIN (BEAKER) (test code = 11.3 GM/DL 13.7-17.5 L 410) HEMATOCRIT (BEAKER) (test code = 35.0 % 40.1-51.0 L 411) MEAN CORPUSCULAR VOLUME (BEAKER) 96.4 fL 79.0-92.2 H (test code = 753) MEAN CORPUSCULAR HEMOGLOBIN 31.1 pg 25.7-32.2 (BEAKER) (test code = 751) MEAN CORPUSCULAR HEMOGLOBIN CONC 32.3 GM/DL 32.3-36.5 (BEAKER) (test code = 752) RED CELL DISTRIBUTION WIDTH 11.8 % 11.6-14.4 (BEAKER) (test code = 412) PLATELET COUNT (BEAKER) (test 412 K/CU MM 150-450 code = 756) MEAN PLATELET VOLUME (BEAKER) 9.2 fL 9.4-12.4 L (test code = 754) NUCLEATED RED BLOOD CELLS 0 /100 WBC 0-0 (BEAKER) (test code = 413) POCT-GLUCOSE [id number] 21:12:00 Test Item Value Reference Range Interpretation Comments POC-GLUCOSE METER 157 mg/dL 70-110 H : TESTED A T [facility] 6720 (BEAKER) (test code = [facility], 1538) 22753: Cut Off Saw Operator/Techni sneha ID = [id number] for MICHELLE AHMETFORREST SPIN/CONCENTRATION [id number] 14:50:00 Test Item Value Reference Range Interpretation Comments CONCENTRATION CHARGED (BEAKER) (test Done code = 2657) POCT-GLUCOSE [id number] 12:40:00 Test Item Value Reference Range Interpretation Comments POC-GLUCOSE METER 146 mg/dL 70-110 H : TESTED A T [facility] 6720 (BEAKER) (test code = [facility], 1538) 10209: Cut Off Saw Operator/Techni sneha ID = [id number] for TIFFANY MOJICA POCT-GLUCOSE [id number] 09:26:00 Test Item Value Reference Range Interpretation Comments POC-GLUCOSE METER 126 mg/dL 70-110 H : TESTED A T [facility] 6720 (BEAKER) (test code [facility], = 1538) 089[address]: Cut Off Saw Operator/Techni sneha ID = [id number] for Sue Lubin CBC W/PLT COUNT & AUTO [id number] 05:21:00 Test Item Value Reference Range Interpretation Comments WHITE BLOOD CELL COUNT (BEAKER) 14.9 K/ L 3.5-10.5 H (test code = 775) RED BLOOD CELL COUNT (BEAKER) 3.66 M/ L 4.63-6.08 L (test code = 761) HEMOGLOBIN (BEAKER) (test code = 11.7 GM/DL 13.7-17.5 L 410) HEMATOCRIT (BEAKER) (test code = 35.3 % 40.1-51.0 L 411) MEAN CORPUSCULAR VOLUME (BEAKER) 96.4 fL 79.0-92.2 H (test code = 753) MEAN CORPUSCULAR HEMOGLOBIN 32.0 pg 25.7-32.2 (BEAKER) (test code = 751) MEAN CORPUSCULAR HEMOGLOBIN CONC 33.1 GM/DL 32.3-36.5 (BEAKER) (test code = 752) RED CELL DISTRIBUTION WIDTH 11.7 % 11.6-14.4 (BEAKER) (test code = 412) PLATELET COUNT (BEAKER) (test 395 K/CU MM 150-450 code = 756) MEAN PLATELET VOLUME (BEAKER) 9.2 fL 9.4-12.4 L (test code = 754) NUCLEATED RED BLOOD CELLS 0 /100 WBC 0-0 (BEAKER) (test code = 413) NEUTROPHILS RELATIVE PERCENT 77 % (BEAKER) (test code = 429) LYMPHOCYTES RELATIVE PERCENT 12 % (BEAKER) (test code = 430) MONOCYTES RELATIVE PERCENT 9 % (BEAKER) (test code = 431) EOSINOPHILS RELATIVE PERCENT 1 % (BEAKER) (test code = 432) BASOPHILS RELATIVE PERCENT 0 % (BEAKER) (test code = 437) NEUTROPHILS ABSOLUTE COUNT 11.45 K/ L 1.78-5.38 H (BEAKER) (test code = 670) LYMPHOCYTES ABSOLUTE COUNT 1.78 K/ L 1.32-3.57 (BEAKER) (test code = 414) MONOCYTES ABSOLUTE COUNT (BEAKER) 1.35 K/ L 0.30-0.82 H (test code = 415) EOSINOPHILS ABSOLUTE COUNT 0.16 K/ L 0.04-0.54 (BEAKER) (test code = 416) BASOPHILS ABSOLUTE COUNT (BEAKER) 0.06 K/ L 0.01-0.08 (test code = 417) IMMATURE GRANULOCYTES-RELATIVE 1 % 0-1 PERCENT (BEAKER) (test code = 2801) BASIC METABOLIC [id number] 05:14:00 Test Item Value Reference Range Interpretation Comments SODIUM (BEAKER) 133 meq/L 136-145 L (test code = 381) POTASSIUM (BEAKER) 4.4 meq/L 3.5-5.1 (test code = 379) CHLORIDE (BEAKER) 100 meq/L 98-107 (test code = 382) CO2 (BEAKER) (test 25 meq/L 22-29 code = 355) BLOOD UREA NITROGEN 28 mg/dL 7-21 H (BEAKER) (test code = 354) CREATININE (BEAKER) 1.14 mg/dL 0.57-1.25 (test code = 358) GLUCOSE RANDOM 119 mg/dL 70-105 H (BEAKER) (test code = 652) CALCIUM (BEAKER) 8.6 mg/dL 8.4-10.2 (test code = 697) EGFR (BEAKER) (test 61 mL/min/1.73 ESTIMA LAI GFR IS code = 1092) sq m NOT ACCURATE CREATININE CLEARANCE IN PREDICTING GLOMERULAR FILTRATION RATE . ESTIMATED GFR I S NOT APPLICABLE FOR DIALYSIS PATIEN TS. POCT-GLUCOSE [id number] 20:43:00 Test Item Value Reference Range Interpretation Comments POC-GLUCOSE METER 178 mg/dL 70-110 H : TESTED A T [facility] 6720 (BEAKER) (test code = [place], 1538) [address]: Cut Off Saw Operator/Techni sneha ID = [id number] for FORREST BALDWIN RAD, FOOT, MIN 3 VIEWS, [id number] 14:48:00Reason for exam:->s/p amputationFINAL REPORT Right foot, three views History: Status post amputation Comparison: 07/14/2019 Findings:There is been interval amputation of the first digit at the level of the proximal first metatarsal. No radiopaque foreign body is seen. No additional significant bone or joint space abnormality. 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 Signed: Jj Wright MDReport Verified Date/Time: 07/19/2019 14:48:51 Reading Location:[facility] Reading Room POCT-GLUCOSE [id number] 13:42:00 Test Item Value Reference Range Interpretation Comments POC-GLUCOSE METER 112 mg/dL 70-110 H : Notified RN/MD: (ELSA) (test code = TESTED AT [facility] 6720 1538) [facility], [address]: Cut Off Saw Operator/Techni sneha ID = [id number] for JANAE JUARES [id number] 06:12:00 Test Item Value Reference Range Interpretation Comments MAGNESIUM (BEAKER) (test code = 2.5 mg/dL 1.6-2.6 627) BASIC METABOLIC [id number] 06:12:00 Test Item Value Reference Range Interpretation Comments SODIUM (BEAKER) 130 meq/L 136-145 L (test code = 381) POTASSIUM (BEAKER) 4.7 meq/L 3.5-5.1 (test code = 379) CHLORIDE (BEAKER) 98 meq/L 98-107 (test code = 382) CO2 (BEAKER) (test 23 meq/L 22-29 code = 355) BLOOD UREA NITROGEN 26 mg/dL 7-21 H (BEAKER) (test code = 354) CREATININE (BEAKER) 1.19 mg/dL 0.57-1.25 (test code = 358) GLUCOSE RANDOM 126 mg/dL 70-105 H (BEAKER) (test code = 652) CALCIUM (BEAKER) 8.7 mg/dL 8.4-10.2 (test code = 697) EGFR (BEAKER) (test 58 mL/min/1.73 ESTIMA LAI GFR IS code = 1092) sq m NOT ACCURATE CREATININE CLEARANCE IN PREDICTING GLOMERULAR FILTRATION RATE . ESTIMATED GFR I S NOT APPLICABLE FOR DIALYSIS PATIEN TS. CBC (HEMOGRAM ONLY)2019-07-19 05:02:00 Test Item Value Reference Range Interpretation Comments WHITE BLOOD CELL COUNT (BEAKER) 15.7 K/ L 3.5-10.5 H (test code = 775) RED BLOOD CELL COUNT (BEAKER) 3.83 M/ L 4.63-6.08 L (test code = 761) HEMOGLOBIN (BEAKER) (test code = 12.3 GM/DL 13.7-17.5 L 410) HEMATOCRIT (BEAKER) (test code = 36.7 % 40.1-51.0 L 411) MEAN CORPUSCULAR VOLUME (BEAKER) 95.8 fL 79.0-92.2 H (test code = 753) MEAN CORPUSCULAR HEMOGLOBIN 32.1 pg 25.7-32.2 (BEAKER) (test code = 751) MEAN CORPUSCULAR HEMOGLOBIN CONC 33.5 GM/DL 32.3-36.5 (BEAKER) (test code = 752) RED CELL DISTRIBUTION WIDTH 11.7 % 11.6-14.4 (BEAKER) (test code = 412) PLATELET COUNT (BEAKER) (test 401 K/CU MM 150-450 code = 756) MEAN PLATELET VOLUME (BEAKER) 9.1 fL 9.4-12.4 L (test code = 754) NUCLEATED RED BLOOD CELLS 0 /100 WBC 0-0 (AKER) (test code = 413) POCT-LACTIC ACID, [id number] 03:46:00 Test Item Value Reference Range Interpretation Comments POC-LACTIC ACID, 0.9 mmol/L 0.9-1.7 TESTED AT [facility] [address] ([facility]) (test [facility] code = 2805) [address] POCT-GLUCOSE [id number] 21:08:00 Test Item Value Reference Range Interpretation Comments POC-GLUCOSE METER 146 mg/dL 70-110 H : TESTED A T [facility] 6720 ([facility]) (test code = [facility], 153) 6[address]: Cut Off Saw Operator/Techni sneha ID = [id number] for FI TE, LESLY POCT-GLUCOSE [id number] 17:29:00 Test Item Value Reference Range Interpretation Comments POC-GLUCOSE METER 106 mg/dL 70-110 : TESTED A T [facility] 6720 ([facility]) (test code = [facility], 153) 736[address]: Cut Off Saw Operator/Techni sneha ID = [id number] for DIANDRA HN, BRYNN POCT-GLUCOSE [id number] 12:44:00 Test Item Value Reference Range Interpretation Comments POC-GLUCOSE METER 113 mg/dL 70-110 H : TESTED A T [facility] 6720 ([facility]) (test code = [facility], 153) 286[address]: Cut Off Saw Operator/Techni sneha ID = [id number] for DIANDRA HN, BRYNN POCT-GLUCOSE [id number] 07:41:00 Test Item Value Reference Range Interpretation Comments POC-GLUCOSE METER 89 mg/dL 70-110 : TESTED A T [facility] 6720 (BEAKER) (test code = [place] [facility], 1538) [address]: Cut Off Saw Operator/Techni sneha ID = [id number] for BRYNN ADAME CBC (HEMOGRAM ONLY)2019-07-18 06:46:00 Test Item Value Reference Range Interpretation Comments WHITE BLOOD CELL COUNT (BEAKER) 14.1 K/ L 3.5-10.5 H (test code = 775) RED BLOOD CELL COUNT (BEAKER) 3.84 M/ L 4.63-6.08 L (test code = 761) HEMOGLOBIN (BEAKER) (test code = 12.3 GM/DL 13.7-17.5 L 410) HEMATOCRIT (BEAKER) (test code = 36.7 % 40.1-51.0 L 411) MEAN CORPUSCULAR VOLUME (BEAKER) 95.6 fL 79.0-92.2 H (test code = 753) MEAN CORPUSCULAR HEMOGLOBIN 32.0 pg 25.7-32.2 (BEAKER) (test code = 751) MEAN CORPUSCULAR HEMOGLOBIN CONC 33.5 GM/DL 32.3-36.5 (BEAKER) (test code = 752) RED CELL DISTRIBUTION WIDTH 11.9 % 11.6-14.4 (BEAKER) (test code = 412) PLATELET COUNT (BEAKER) (test 372 K/CU MM 150-450 code = 756) MEAN PLATELET VOLUME (BEAKER) 9.2 fL 9.4-12.4 L (test code = 754) NUCLEATED RED BLOOD CELLS 0 /100 WBC 0-0 (BEAKER) (test code = 413) POCT-GLUCOSE [id number] 21:24:00 Test Item Value Reference Range Interpretation Comments POC-GLUCOSE METER 95 mg/dL 70-110 : TESTED A T [facility] 6720 (BEAKER) (test code = [place] [facility], 1538) [address]: Cut Off Saw Operator/Techni sneha ID = [id number] for LESLY SILVERIO POCT-GLUCOSE [id number] 17:26:00 Test Item Value Reference Range Interpretation Comments POC-GLUCOSE METER 111 mg/dL 70-110 H : [facility] ([facility]) (test code = [place] [facility], 1538) [address]: Cut Off Saw Operator/Techni sneha ID = [id number] for BRYNN HOLLIS PET, CARDIAC PERFUSION MULTIPLE STUDIES, REST AND [id number] 14:49:00 Reason for exam:->preopFINAL REPORT PROCEDURE: MYOCARDIAL PERFUSION PET IMAGING (Rest/Stress)CPT CODE:[id number] INDICATION: Preoperative evaluation for vascular surgery CARDIOVASCULAR PROFILE:Symptoms: NoneCAD History: NoneRisk Factors: Diabetes mellitus, hypertension, lipid abnormality, peripheral vascular diseaseBMI: 32.1Medications: Norvasc, aspirin, hydralazine, heparin, Cozaar STRESS PROTOCOL:Pharmacologic stress was achieved with a 10-second intravenous infusion of regadenoson 0.4 mg. IMAGING PROTOC OL:Limited low-dose CT imaging was performed for attenuation correction. 40 mCi of Rb-82 chloride was injected intravenously at rest, and PET images were obtained. Then, 40 mCi of Rb-82 chloride was injected intravenously at peak stress, and PET images were obtained. REST FINDINGS:HR: 59 /minBP: 173/72 mmHgPrelim. EKG: Normal sinus rhythm.Perfusion: Normal.Wall Motion: Normal (LVEF 60%).LV Volume: Normal.RV Volume: Normal. STRESS FINDINGS:HR: 74 /min (54% of MPHR)BP: 145/57 mmHgPrelim. EKG: No ischemic changes.Symptoms: Dyspnea (treatment not required).Perfusion: Normal.Wall Motion: Normal (LVEF 55%).LV Volume: Unchanged from rest. IMPRESSION:1. Suspicious study.2. Normal myocardial perfusion. 3. Normal global LV function, which mildly deteriorate with stress.4. Normal extracardiac tracer distribution.5. There is no prior study for comparison. Signed: Jean Pierre Roberto Verified Date/Time: 07/17/2019 14:49:05 POCT-GLUCOSE [id number] 08:32:00 Test Item Value Reference Range Interpretation Comments POC-GLUCOSE METER 140 mg/dL 70-110 H : TESTED A T [facility] 6720 ([place]) (test code = [facility], 1538) [address]: Cut Off Saw Operator/Techni sneha ID = [id number] for BRYNN HOLLIS CBC (HEMOGRAM ONLY)2019-07-17 04:54:00 Test Item Value Reference Range Interpretation Comments WHITE BLOOD CELL COUNT (BEAKER) 11.9 K/ L 3.5-10.5 H (test code = 775) RED BLOOD CELL COUNT (BEAKER) 4.09 M/ L 4.63-6.08 L (test code = 761) HEMOGLOBIN (BEAKER) (test code = 12.9 GM/DL 13.7-17.5 L 410) HEMATOCRIT (BEAKER) (test code = 39.2 % 40.1-51.0 L 411) MEAN CORPUSCULAR VOLUME (BEAKER) 95.8 fL 79.0-92.2 H (test code = 753) MEAN CORPUSCULAR HEMOGLOBIN 31.5 pg 25.7-32.2 (BEAKER) (test code = 751) MEAN CORPUSCULAR HEMOGLOBIN CONC 32.9 GM/DL 32.3-36.5 (BEAKER) (test code = 752) RED CELL DISTRIBUTION WIDTH 11.6 % 11.6-14.4 (BEAKER) (test code = 412) PLATELET COUNT (BEAKER) (test 341 K/CU MM 150-450 code = 756) MEAN PLATELET VOLUME (BEAKER) 8.8 fL 9.4-12.4 L (test code = 754) NUCLEATED RED BLOOD CELLS 0 /100 WBC 0-0 (BEAKER) (test code = 413) POCT-GLUCOSE [id number] 21:22:00 Test Item Value Reference Range Interpretation Comments POC-GLUCOSE METER 175 mg/dL 70-110 H : TESTED A T [facility] 6720 (BEAKER) (test code = [facility], 1538) [address]: Cut Off Saw Operator/Techni sneha ID = [id number] for FORREST BALDWIN POCT-GLUCOSE [id number] 12:07:00 Test Item Value Reference Range Interpretation Comments POC-GLUCOSE METER 99 mg/dL 70-110 : TESTED A T [facility] 6720 (BEAKER) (test code = [facility], 1538) [address]: Cut Off Saw Operator/Techni sneha ID = [id number] for Fanu cchi, [place] RAD, FOOT, MIN 3 VIEWS, [id number] 09:31:00Reason for exam:->infection footFINAL REPORT RAD, FOOT, MIN 3 VIEWS, RIGHT INDICATION: infection foot COMPARISON: None TECHNIQUE: AP, lateral and oblique radiographs of the foot FINDINGS/IMPRESSION:No acute fracture Signed: Lin Alvarado MDReport Verified Date/Time: 07/16/2019 09:31:42 Reading Location: [facility] Radiology Reading Room CBC (HEMOGRAM ONLY)2019-07-16 07:30:00 Test Item Value Reference Range Interpretation Comments WHITE BLOOD CELL COUNT (BEAKER) 11.0 K/ L 3.5-10.5 H (test code = 775) RED BLOOD CELL COUNT (BEAKER) 4.23 M/ L 4.63-6.08 L (test code = 761) HEMOGLOBIN (BEAKER) (test code = 13.3 GM/DL 13.7-17.5 L 410) HEMATOCRIT (BEAKER) (test code = 39.8 % 40.1-51.0 L 411) MEAN CORPUSCULAR VOLUME (BEAKER) 94.1 fL 79.0-92.2 H (test code = 753) MEAN CORPUSCULAR HEMOGLOBIN 31.4 pg 25.7-32.2 (BEAKER) (test code = 751) MEAN CORPUSCULAR HEMOGLOBIN CONC 33.4 GM/DL 32.3-36.5 (BEAKER) (test code = 752) RED CELL DISTRIBUTION WIDTH 11.7 % 11.6-14.4 (BEAKER) (test code = 412) PLATELET COUNT (BEAKER) (test 414 K/CU MM 150-450 code = 756) MEAN PLATELET VOLUME (BEAKER) 9.2 fL 9.4-12.4 L (test code = 754) NUCLEATED RED BLOOD CELLS 0 /100 WBC 0-0 (BEAKER) (test code = 413) [id number] 06:49:00 Test Item Value Reference Range Interpretation Comments PARTIAL THROMBOPLASTIN TIME 55.5 seconds 22.5-36.0 H (BEAKER) (test code = 760) [id number] 00:12:00 Test Item Value Reference Range Interpretation Comments PARTIAL THROMBOPLASTIN TIME 70.6 seconds 22.5-36.0 H ([facility]) (test code = 760) POCT-GLUCOSE [id number] 21:03:00 Test Item Value Reference Range Interpretation Comments POC-GLUCOSE METER 116 mg/dL 70-110 H : TESTED A T [facility] 6720 ([facility]) (test code = [facility], 1538) [address]: Cut Off Saw Operator/Techni sneha ID = [id number] for FORREST BALDWIN POCT-GLUCOSE [id number] 18:34:00 Test Item Value Reference Range Interpretation Comments POC-GLUCOSE METER 95 mg/dL 70-110 : Notified RN/MD: TESTED ([facility]) (test code = AT [facility] [address] [facility] 1538) [facility] 30: Cut Off Saw Operator/Techni sneha ID = [id number] for EBONY GIVENS [id number] 17:06:00 Test Item Value Reference Range Interpretation Comments PARTIAL THROMBOPLASTIN TIME 48.7 seconds 22.5-36.0 H ([facility]) (test code = 760) POCT-GLUCOSE [id number] 12:46:00 Test Item Value Reference Range Interpretation Comments POC-GLUCOSE METER 110 mg/dL 70-110 : TESTED A T [facility] 6720 ([facility]) (test code = [facility], 1538) 51002: Cut Off Saw Operator/Techni sneha ID = [id number] for EBONY NICHOLSON [id number] 09:48:00 Test Item Value Reference Range Interpretation Comments PARTIAL THROMBOPLASTIN TIME 56.8 seconds 22.5-36.0 H ([facility]) (test code = 760) POCT-GLUCOSE [id number] 07:43:00 Test Item Value Reference Range Interpretation Comments POC-GLUCOSE METER 82 mg/dL 70-110 : TESTED A T [facility] 6720 ([facility]) (test code = [facility], 1538) [address]1982: Cut Off Saw Operator/Techni sneha ID = [id number] for Natalie Ibrahim CBC (HEMOGRAM ONLY)2019-07-15 06:36:00 Test Item Value Reference Range Interpretation Comments WHITE BLOOD CELL COUNT ([facility]) 8.5 K/ L 3.5-10.5 (test code = 775) RED BLOOD CELL COUNT (BEAKER) 4.13 M/ L 4.63-6.08 L (test code = 761) HEMOGLOBIN (BEAKER) (test code = 13.3 GM/DL 13.7-17.5 L 410) HEMATOCRIT (BEAKER) (test code = 39.3 % 40.1-51.0 L 411) MEAN CORPUSCULAR VOLUME (BEAKER) 95.2 fL 79.0-92.2 H (test code = 753) MEAN CORPUSCULAR HEMOGLOBIN 32.2 pg 25.7-32.2 (BEAKER) (test code = 751) MEAN CORPUSCULAR HEMOGLOBIN CONC 33.8 GM/DL 32.3-36.5 (BEAKER) (test code = 752) RED CELL DISTRIBUTION WIDTH 11.8 % 11.6-14.4 (BEAKER) (test code = 412) PLATELET COUNT (BEAKER) (test 388 K/CU MM 150-450 code = 756) MEAN PLATELET VOLUME (BEAKER) 9.1 fL 9.4-12.4 L (test code = 754) NUCLEATED RED BLOOD CELLS 0 /100 WBC 0-0 (BEAKER) (test code = 413) CT, CTA AAA, W/ ERICA.EXT.[id number] 05:24:00FINAL REPORT CT, CTA AAA, W/ ERICA.EXT.RUNOFF INDICATION:Acute limb ischemia, leg COMPARISON: TECHNIQUE:CTA of the abdomen, pelvis and lower extremities WITH intravenous contrast. The exam was performed according to our department dose- optimization protocol, which includes automatedexposure control, adjustments of mA and kV according to patient size. Iterative reconstructions are also sometimes employed. FINDINGS: VESSELS: Aorta is patent without aneurysm or dissection. Extensiveaortoiliac and mesenteric vessel atherosclerotic plaques.Celiac trunk severe [...] distal reconstitution. Right superficial femoral artery severe proximalstenosis and distal occlusion. Popliteal artery is not well-visualized due to streak artifact from total knee arthroplasty. Anterior tibial artery occlusion with segmental reconstitution. Posterior tibial artery occlusion with segmental reconstitution. Peroneal artery severe stenosis. Severely stenotic dorsalis pedis. Left common femoral artery moderate stenosis. Left superficial femoral artery occlusion with distal reconstitution and multifocal severe stenosis. Left popliteal artery poorly visualized due to streak artifact from total knee arthroplasty. Occluded anterior tibial artery with distal reconstitution. Severely stenotic but patent posterior tibial artery and peroneal artery. Severely stenotic dorsalis pedis artery. LOWER THORAX: Bibasilar subsegmental opacities consistent with atelectasis or scarring.. HEPATOBILIARY: Cholelithiasis.SPLEEN: Unremarkable.PANCREAS: Unremarkable. ADRENALS:Unremarkable.KIDNEYS/URETERS: No acute findings.PELVIC ORGANS/BLADDER: Unremarkable. PERITONEUM / RET ROPERITONEUM: Unremarkable.LYMPH NODES: Unremarkable. GI TRACT: Diverticulosis coli. No evidence of acute obstruction. BONES: Lumbar spondylosis. IMPRESSION:Severe bilateral peripheral arterial diseasefurther discussed above.Extensive aortoiliac and mesenteric vessel atheromatous plaques. No aortic dissection or aneurysm.Cholelithiasis. Diverticulosis coli. Signed: Josr Maldonado MDReport Verified Date/Time: 07/15/2019 05:24:24 [id number] 02:55:00 Test Item Value Reference Range Interpretation Comments PARTIAL THROMBOPLASTIN TIME 47.4 seconds 22.5-36.0 H (BEAKER) (test code = 760) 6 hours after starting heparin infusion and as indicated per sliding scale PROTHROMBIN [id number] 02:54:00 Test Item Value Reference Range Interpretation Comments PROTIME (BEAKER) (test code = 15.4 seconds 11.9-14.2 H 759) INR (BEAKER) (test code = 370) 1.3 <=5.9 Effective 12/30/2018: PT Reference Range ChangeNew: 11.9-14.2 Previous: 11.7- 14.7RECOMMENDED COUMADIN/WARFARIN INR THERAPY RANGESSTANDARD DOSE: 2.0-3.0 Includes: PROPHYLAXIS for venous thrombosis, systemic embolization; TREATMENT for venous thrombosis and/or pulmonary embolus.HIGH RISK: Target INR is 2.5-3.5 for patients wiht mechanical heart valves.6 hours after starting heparin infusion and as indicated per sliding [id number] 02:54:00 Test Item Value Reference Range Interpretation Comments PARTIAL THROMBOPLASTIN TIME 48.8 seconds 22.5-36.0 H (BEAKER) (test code = 760) HEMOGLOBIN [id number] 00:36:00 Test Item Value Reference Range Interpretation Comments HEMOGLOBIN A1C (BEAKER) (test code = 6.5 % 4.3-6.1 H 368) POCT-GLUCOSE [id number] 21:45:00 Test Item Value Reference Range Interpretation Comments POC-GLUCOSE METER 156 mg/dL 70-110 H : TESTED A T [facility] 6720 (Ushahidi) (test code = [facility], 1538) 15806: Cut Off Saw Operator/Techni sneha ID = [id number] for MARISELA MURILLO LIPID [id number] 20:49:00 Test Item Value Reference Range Interpretation Comments TRIGLYCERIDES (BEAKER) (test code = 82 mg/dL 540) CHOLESTEROL (BEAKER) (test code = 141 mg/dL 631) HDL CHOLESTEROL (BEAKER) (test code 34 mg/dL = 976) LDL CHOLESTEROL CALCULATED (BEAKER) 91 mg/dL (test code = 633) Triglyceride Reference Range: Low Risk <150 Borderline 150-199 High Risk 200- 499 Very High Risk >=500Cholesterol Reference Range: Low Risk <200 Borderline 200-239 High Risk >240HDL Cholesterol Reference Range: Low Risk >=60 High Risk <40LDL Cholesterol Reference Range: Optimal <100 Near Optimal 100-129 Borderline 130-159 High 160-189 Very High >=190POCT-GLUCOSE [id number] 19:45:00 Test Item Value Reference Range Interpretation Comments POC-GLUCOSE METER 100 mg/dL 70-110 : TESTED A T [facility] 67[facility] (Ushahidi) (test code = [facility], 1538) 18722: Cut Off Saw Operator/Techni sneha ID = [id number] for ME LUCRECIA, TRACY BASIC METABOLIC [id number] 19:20:00 Test Item Value Reference Range Interpretation Comments SODIUM (BEAKER) 135 meq/L 136-145 L (test code = 381) POTASSIUM (BEAKER) 4.6 meq/L 3.5-5.1 (test code = 379) CHLORIDE (BEAKER) 99 meq/L 98-107 (test code = 382) CO2 (BEAKER) (test 27 meq/L 22-29 code = 355) BLOOD UREA NITROGEN 14 mg/dL 7-21 (BEAKER) (test code = 354) CREATININE (BEAKER) 0.89 mg/dL 0.57-1.25 (test code = 358) GLUCOSE RANDOM 139 mg/dL 70-105 H (BEAKER) (test code = 652) CALCIUM (BEAKER) 9.3 mg/dL 8.4-10.2 (test code = 697) EGFR (BEAKER) (test 82 mL/min/1.73 ESTIMA LAI GFR IS code = 1092) sq m NOT ACCURATE CREATININE CLEARANCE IN PREDICTING GLOMERULAR FILTRATION RATE . ESTIMATED GFR I S NOT APPLICABLE FOR DIALYSIS PATIEN TS. [id number] 19:15:00 Test Item Value Reference Range Interpretation Comments PARTIAL THROMBOPLASTIN TIME 42.2 seconds 22.5-36.0 H (BEAKER) (test code = 760) Prior to initiating heparinCBC W/PLT COUNT & AUTO [id number] 19:03:00 Test Item Value Reference Range Interpretation Comments WHITE BLOOD CELL COUNT (BEAKER) 11.1 K/ L 3.5-10.5 H (test code = 775) RED BLOOD CELL COUNT (BEAKER) 4.39 M/ L 4.63-6.08 L (test code = 761) HEMOGLOBIN (BEAKER) (test code = 14.0 GM/DL 13.7-17.5 410) HEMATOCRIT (BEAKER) (test code = 41.7 % 40.1-51.0 411) MEAN CORPUSCULAR VOLUME (BEAKER) 95.0 fL 79.0-92.2 H (test code = 753) MEAN CORPUSCULAR HEMOGLOBIN 31.9 pg 25.7-32.2 (BEAKER) (test code = 751) MEAN CORPUSCULAR HEMOGLOBIN CONC 33.6 GM/DL 32.3-36.5 (BEAKER) (test code = 752) RED CELL DISTRIBUTION WIDTH 11.7 % 11.6-14.4 (BEAKER) (test code = 412) PLATELET COUNT (BEAKER) (test 402 K/CU MM 150-450 code = 756) MEAN PLATELET VOLUME (BEAKER) 8.8 fL 9.4-12.4 L (test code = 754) NUCLEATED RED BLOOD CELLS 0 /100 WBC 0-0 (BEAKER) (test code = 413) NEUTROPHILS RELATIVE PERCENT 67 % (BEAKER) (test code = 429) LYMPHOCYTES RELATIVE PERCENT 20 % (BEAKER) (test code = 430) MONOCYTES RELATIVE PERCENT 11 % (BEAKER) (test code = 431) EOSINOPHILS RELATIVE PERCENT 1 % (BEAKER) (test code = 432) BASOPHILS RELATIVE PERCENT 0 % (BEAKER) (test code = 437) NEUTROPHILS ABSOLUTE COUNT 7.43 K/ L 1.78-5.38 H (BEAKER) (test code = 670) LYMPHOCYTES ABSOLUTE COUNT 2.23 K/ L 1.32-3.57 (BEAKER) (test code = 414) MONOCYTES ABSOLUTE COUNT (BEAKER) 1.23 K/ L 0.30-0.82 H (test code = 415) EOSINOPHILS ABSOLUTE COUNT 0.06 K/ L 0.04-0.54 (BEAKER) (test code = 416) BASOPHILS ABSOLUTE COUNT (BEAKER) 0.04 K/ L 0.01-0.08 (test code = 417) IMMATURE GRANULOCYTES-RELATIVE 1 % 0-1 PERCENT (BEAKER) (test code = 6758)
--- NOTE | 2022-07-28 15:02 | RAD REPORT ---
EXAM DESCRIPTION: CT - Head Brain Wo Cont - 07/28/2022 2:24 pm CLINICAL HISTORY: altered mental status Headache, drowsiness COMPARISON: Head Brain Wo Cont dated 09/06/2018 TECHNIQUE: All CT scans are performed using dose optimization technique as appropriate and may inclu de automated exposure control or mA/KV adjustment according to patient size. 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 The paranasal sinuses and mastoids are clear. The calvarium is intact. Significant vertebrobasilar at herosclerosis. IMPRESSION: No acute intracranial abnormality.
[2022-07-28 15:22] LABS: Albumin 2.7 g/dL (3.4-5.0); Bilirubin Direct 0.2 mg/dL (0-0.2); Bilirubin Total 0.6 mg/dL (0.2-1.0); Magnesium 2.3 mg/dL (1.6-2.4); Potassium 4.4 mmol/L (3.5-5.1); Protein, Total 5.9 g/dL (6.4-8.2)
--- NOTE | 2022-07-28 15:29 | RAD REPORT ---
EXAM DESCRIPTION: RAD - Chest Single View - 07/28/2022 3:22 pm CLINICAL HISTORY: COUGH Chest pain. COMPARISON: Chest Single View dated 08/20/2019; Chest Pa And Lat (2 Views) dated 09/07/2018; Chest Sing le View dated 09/06/2018 FINDINGS: Portable technique limits examination quality. The lungs are grossly clear. The heart is normal in size. No displaced fractures.Dual lead pacer scott ce is present. IMPRESSION: No acute intrathoracic process suspected.
[2022-07-28 15:31] LABS: Troponin High Sensitivity 133.3 pg/mL (<58.9)
[2022-07-28 15:45] LABS: SARS-COV-2 RT PCR NEGATIVE (NEGATIVE)
[2022-07-28 15:59] LABS: Protime INR 1.14
--- NOTE | 2022-07-28 16:51 | RAD REPORT ---
EXAM DESCRIPTION: US - Extremity Venous Uni Ltd - 07/28/2022 4:45 pm CLINICAL HISTORY: SWELLING Leg swelling and edema. COMPARISON: Extremity Venous Uni Ltd dated 03/24/2017 FINDINGS: Left lower extremity venous system was interrogated with Doppler technique. Normal flow, c ompressibility and augmentation was noted. There is no DVT present. IMPRESSION: No evidence of left lower extremity deep venous thrombosis.
--- NOTE | 2022-07-28 16:53 | RAD REPORT ---
EXAM DESCRIPTION: US - Lower Extremity Artery Uni Ltd - 07/28/2022 4:45 pm CLINICAL HISTORY: chronic wound Claudication COMPARISON: No comparisons FINDINGS: Grayscale, color and power Doppler interrogation of the left lower extremity arterial syst em was performed. Diffuse blunted monophasic waveforms are seen throughout the left lower extremity arterial system. Th is likely indicates significant inflow stenosis. No complete occlusion seen. IMPRESSION: Diffuse monophasic waveforms throughout the left lower extremity arterial system likely related to inflow stenosis.
[2022-07-28] MEDS ORDERED: VANCOMYCIN 1 GM/VIAL ONE (17:01)
[2022-07-28] MEDS ORDERED: CEFEPIME 1 GM/VIAL ONE ×2 (17:01→19:30)
[2022-07-28] MEDS ORDERED: NA CHLORIDE 0.9% 0 ML IV ONE ×2 (17:01→17:58)
[2022-07-28] MEDS ORDERED: NA CHLORIDE 0.9% 250 ML ONE (17:01)
[2022-07-28] MEDS ORDERED: ASPIRIN 81 MG CHEWABLE TABLET ONE (17:01)
[2022-07-28 17:28] LABS: Absolute Lymphocytes (CBC) 1.9 K/uL (0.7-4.9); Hematocrit 29.1 % (39.6-49.0); Lymphocytes % 29.5 % (15.3-44.8); MCV 93.5 fL (80-100); MPV 10.5 fL (7.6-11.3); RBC Red Blood Cell Count 3.11 M/uL (4.33-5.43)
[2022-07-28 17:33] LABS: Platelet Estimate DECR; White Blood Cell Scan OK (OK)
[2022-07-28 17:34] LABS: Blood Morphology Comment NOT SEEN (NOT SEEN)
--- NOTE | 2022-07-28 17:44 | RAD REPORT ---
EXAM DESCRIPTION: RAD - Foot Left 3 View - 07/28/2022 5:21 pm CLINICAL HISTORY: SWELLING COMPARISON: No comparisons FINDINGS: Soft tissue swelling is seen along the dorsum of the forefoot. Previous second toe amputat ion noted. Partial soft tissue and bony amputation of the distal phalanx of the great toe is present. Ununited fracture also noted involving the proximal phalanx of the third toe. If osteomyelitis is a clinical concern, MRI the foot would be recommended for followup.
[2022-07-28 17:57] LABS: Urine Bacteria None Seen /HPF (<20); Urine RBC <5 /HPF (None Seen)
--- NOTE | 2022-07-28 17:58 | EDPHYS ---
Physician Documentation [facility] Name: Irineo Goldman Age: 86 yrs Sex: Male : 1935 Arrival Date: 07/28/2022 Time: 13:16 Bed 16 Private MD: Steve Guido ED Physician Rick Romeo HPI: 07/28 13:45 This 86 yrs old Male presents to ER via Wheelchair with complaints of Low Blood Sugar. cp 13:45 The patient or guardian reports low blood glucose. cp 13:45 The patient presents with confusion. Onset: The symptoms/episode began/occurred 4 cp day(s) ago. Possible causes: infection of left foot. Patient's baseline: Neuro: alert and fully oriented, Motor: no deficits, Ambulation: unable to walk, uses wheelchair, Speech: normal. Patient with history of right above knee amputation. 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 Brought in to ED for confusion and concern for worsening infection of left great toe and left foot. Historical: - Allergies: 13:46 Iodine; hb - PMHx: 13:46 CVA; Diabetes - IDDM; High Cholesterol; Hypertension; hb ROS: 13:50 Constitutional: Positive for poor PO intake, Negative for fever. cp 13:50 Eyes: Negative for injury, pain, redness, and discharge. cp 13:50 ENT: Negative for drainage from ear(s), ear pain, sore throat, difficulty swallowing, difficulty handling secretions. 13:50 Cardiovascular: Negative for chest pain, palpitations. 13:50 Respiratory: Negative for cough, shortness of breath, wheezing. 13:50 Back: Negative for pain at rest, pain with movement. 13:50 Skin: Positive for ulceration, of the left great toe and left foot. 13:50 Neuro: Positive for altered mental status, weakness. 13:50 All other systems are negative. cp Exam: 13:55 Constitutional: The patient appears in no acute distress, alert, awake, cp non-diaphoretic, non-toxic, well developed, well nourished. 13:55 Head/Face: Normocephalic, atraumatic. cp 13:55 Eyes: Periorbital structures: appear normal, Pupils: equal, round, and reactive to light and accomodation, Extraocular movements: intact throughout, Conjunctiva: normal, no exudate, no injection, Sclera: no appreciated abnormality, Lids and lashes: appear normal, bilaterally. 13:55 ENT: External ear(s): are unremarkable, Nose: is normal, Mouth: Lips: dry, Oral mucosa: moist, Posterior pharynx: Airway: no evidence of obstruction, patent, erythema, is not appreciated, exudate, is not appreciated. 13:55 Neck: ROM/movement: is normal, is supple, without pain, no range of motions limitations, no nuchal rigidity. 13:55 Chest/axilla: Inspection: normal. 13:55 Cardiovascular: Rate: normal, Rhythm: regular, Edema: mild left ankle edema, JVD: is not appreciated. 13:55 Respiratory: the patient does not display signs of respiratory distress, Respirations: normal, no use of accessory muscles, no retractions, labored breathing, is not present, Breath sounds: are clear throughout, no decreased breath sounds, no stridor, no wheezing. 13:55 Abdomen/GI: Inspection: abdomen appears normal, Palpation: abdomen is soft and non-tender, in all quadrants. 13:55 Back: pain, is absent, ROM is normal. 13:55 Musculoskeletal/extremity: Extremities: noted in the right leg: above the knee amputation, noted in the left leg: open wound noted distal phalanx left great toe with erythema, swelling and erythema extending proximally. left second toe amputated, superficial wound noted to dorsum left foot with erythema. 13:55 Neuro: Orientation: to person, place, situation, Mentation: able to follow commands, slow to respond. 14:15 ECG was reviewed by the Attending Physician. cp Vital Signs: 13:33 BP 126 / 86; Pulse 96; Resp 18; Temp 98.3(TE); Pulse Ox 98% on R/A; Weight 113.4 kg; hb Height 5 ft. 11 in. (180.34 cm); Pain 2/10; 19:56 BP 125 / 69; Pulse 91; Resp 18; Temp 98.2(O); Pulse Ox 99% on R/A; jb4 20:30 BP 135 / 59; Pulse 88; Resp 16; Pulse Ox 100% on R/A; jb4 21:30 BP 141 / 65; Pulse 89; Resp 16; Pulse Ox 96% on R/A; jb4 13:33 Body Mass Index 34.87 (113.40 kg, 180.34 cm) hb MDM: 13:40 Patient medically screened. cp 15:00 Differential diagnosis: sepsis, cellulitis, osteomyelitis, DVT. cp 17:55 Data reviewed: vital signs, nurses notes, lab test result(s), EKG, radiologic studies, cp plain films, ultrasound. 17:55 Test interpretation: by ED physician or midlevel provider: ECG, plain radiologic cp studies. 07/28 13:39 Order name: Glucose, Ancillary Testing; Complete Time: 13:40 EDMS 07/28 13:53 Order name: Basic Metabolic Panel; Complete Time: 15:49 cp 07/28 15:49 Interpretation: Normal except: GLUC 136; BUN 64; CRE 1.86; GFR 35; CA 8.3. 07/28 13:53 Order name: CBC with Diff; Complete Time: 17:50 07/28 17:50 Interpretation: Normal except: RBC 3.11; HGB 9.8; HCT 29.1. 07/28 13:53 Order name: LFT's; Complete Time: 15:49 cp 07/28 15:49 Interpretation: Normal except: TP 5.9; ALB 2.7; A/G 0.8. 07/28 13:53 Order name: Magnesium; Complete Time: 15:49 07/28 13:53 Order name: NT PRO-BNP; Complete Time: 15:49 07/28 13:53 Order name: PT-INR; Complete Time: 16:20 07/28 13:53 Order name: Troponin HS; Complete Time: 15:49 07/28 15:49 Interpretation: Abnormal: Troponin HS 133.3. 07/28 13:53 Order name: COVID-19/FLU A+B; Complete Time: 15:49 cp 07/28 13:53 Order name: Wound Culture 07/28 13:53 Order name: Blood Culture Adult (2) 07/28 13:53 Order name: Lactate w/ 2H reflex if indic.; Complete Time: 16:20 07/28 16:20 Interpretation: Abnormal: LAC 1.7. 07/28 13:53 Order name: Procalcitonin; Complete Time: 17:50 07/28 13:53 Order name: Urine Microscopic Only; Complete Time: 18:16 cp 07/28 13:53 Order name: XRAY Chest (1 view); Complete Time: 15:49 cp 07/28 13:53 Order name: EKG; Complete Time: 13:54 cp 07/28 13:53 Order name: Cardiac monitoring; Complete Time: 13:55 cp 07/28 13:53 Order name: EKG - Nurse/Tech; Complete Time: 14:52 cp 07/28 13:53 Order name: IV Saline Lock; Complete Time: 14:33 cp 07/28 13:53 Order name: Labs collected and sent; Complete Time: 14:33 cp 07/28 13:53 Order name: O2 Per Protocol; Complete Time: 13:55 cp 07/28 13:55 Order name: CT Head Brain wo Cont; Complete Time: 15:26 cp 07/28 15:26 Interpretation: Report reviewed. cp 07/28 14:25 Order name: US Extremity Venous Unilateral Ltd; Complete Time: 17:50 cp 07/28 14:25 Order name: US LE Artery Uni Ltd; Complete Time: 17:50 cp 07/28 16:22 Order name: XRAY Foot LEFT 3 View; Complete Time: 17:50 cp 07/28 17:34 Order name: CBC Smear Scan; Complete Time: 17:50 EDMS 07/28 21:14 Order name: CT; Complete Time: 21:44 EDMS 07/28 13:53 Order name: O2 Sat Monitoring; Complete Time: 13:55 cp 07/28 13:53 Order name: Urine Dipstick-Ancillary (obtain specimen); Complete Time: 17:38 cp EC:15 Rate is 91 beats/min. Rhythm is regular. ME interval is normal. QRS interval is cp prolonged at 114 msec. QT interval is normal. Interpreted by me. Reviewed by me. Administered Medications: 17:10 Drug: Aspirin Chewable Tablet 324 mg Route: PO; hb 18:00 Follow up: Response: No adverse reaction eh3 17:10 Drug: vancoMYCIN 1 grams Route: IVPB; Infused Over: 2 hrs; Site: left antecubital; hb 19:36 Follow up: Response: No adverse reaction; IV Status: Completed infusion; IV Intake: jb4 250ml 17:45 Drug: Cefepime 1 grams Route: IVPB; Rate: 200 ml/hr; Infused Over: 30 mins; Site: left eh3 antecubital; 18:15 Follow up: Response: No adverse reaction; IV Status: Completed infusion; IV Intake: eh3 100ml Disposition Summary: 07/28/22 17:57 Hospitalization Ordered Hospitalization Status: Inpatient Admission cp Provider: Kendall Han cp Location: Telemetry/MedSurg (Inpatient) cp Condition: Stable cp Problem: new cp Symptoms: have improved cp Bed/Room Type: Standard cp Room Assignment: 213(07/28/22 19:44) cg Diagnosis - Cellulitis of left lower limb cp Discharge Instructions: - Discharge Summary Sheet 3 Forms: - Medication Reconciliation Form cp - SBAR form 3 Signatures: Dispatcher [employer] EDTolu Kim, STOPPER GRINDER-C STOPPER GRINDER-Cla1 Rick Young PA PA cp Garcia, Cindy, JOSE LUIS RN cg Darlyn York RN RN Mihaela Fontanez RN RN 3 Darrick Parker RN jb4 Corrections: (The following items were deleted from the chart) :44 17:57 cp cg
--- NOTE | 2022-07-28 17:58 | ER ---
Nurse's Notes [facility] Name: Irineo Goldman Age: 86 yrs Sex: Male : 1935 Arrival Date: 07/28/2022 Time: 13:16 Bed 16 Private MD: Steve Guido Diagnosis: Cellulitis of left lower limb Presentation: 07/28 13:33 Chief complaint: Home BGL 45, gave OJ and PBJ sandwich and came to ER. BG 98 upon arrival. reports chills, loss of bowel control x 2 days, and new rash near chronic foot wound since yesterday. Dressing to left foot dry and intact. Coronavirus screen: At this time, the client does not indicate any symptoms associated with coronavirus-19. Ebola Screen: No symptoms or risks identified at this time. Initial Sepsis Screen: Does the patient meet any 2 criteria? No. Patient's initial sepsis screen is negative. Does the patient have a suspected source of infection? No. Patient's initial sepsis screen is negative. Risk Assessment: Do you want to hurt yourself or someone else? Patient reports no desire to harm self or others. Onset of symptoms was July 26, 2022. 13:33 Method Of Arrival: Wheelchair hb 13:33 Acuity: JESSIE 3 hb Historical: - Allergies: 13:46 Iodine; hb - PMHx: 13:46 CVA; Diabetes - IDDM; High Cholesterol; Hypertension; hb Assessment: 19:00 General: Appears in no apparent distress. comfortable, Behavior is calm, cooperative, jb4 appropriate for age. Pain: Denies pain. Neuro: Level of Consciousness is awake, alert, obeys commands, Oriented to person, place, time, situation. Cardiovascular: Patient's skin is warm and dry. Respiratory: Airway is patent Respiratory effort is even, unlabored, Respiratory pattern is regular, symmetrical. GI: No signs and/or symptoms were reported involving the gastrointestinal system. : No signs and/or symptoms were reported regarding the genitourinary system. EENT: No signs and/or symptoms were reported regarding the EENT system. Derm: Skin is pink, warm \T\ dry. Wound noted left Achilles, dorsum of left foot, left first toe and Left first toenail. 19:56 Reassessment: Wet to dry dressing applied to wounds. jb4 20:26 Reassessment: Patient appears in no apparent distress at this time. Patient and/or jb4 family updated on plan of care and expected duration. Pain level reassessed. Patient is alert, oriented x 3, equal unlabored respirations, skin warm/dry/pink. attempted to call report, instructed to wait for call back. 21:58 Reassessment: Patient appears in no apparent distress at this time. Patient and/or jb4 family updated on plan of care and expected duration. Pain level reassessed. Patient is alert, oriented x 3, equal unlabored respirations, skin warm/dry/pink. Vital Signs: 13:33 BP 126 / 86; Pulse 96; Resp 18; Temp 98.3(TE); Pulse Ox 98% on R/A; Weight 113.4 kg; hb Height 5 ft. 11 in. (180.34 cm); Pain 2/10; 19:56 BP 125 / 69; Pulse 91; Resp 18; Temp 98.2(O); Pulse Ox 99% on R/A; jb4 20:30 BP 135 / 59; Pulse 88; Resp 16; Pulse Ox 100% on R/A; jb4 21:30 BP 141 / 65; Pulse 89; Resp 16; Pulse Ox 96% on R/A; jb4 13:33 Body Mass Index 34.87 (113.40 kg, 180.34 cm) hb ED Course: 13:16 Patient arrived in ED. as 13:17 Steve Guido MD is Private Physician. as 13:33 [facility]. cp 13:33 Rick Romeo MD is Attending Physician. cp 13:46 Triage completed. hb 13:46 Arm band placed on. hb 13:49 Mihaela Fontanez, JOSE LUIS is Primary Nurse. eh3 14:24 CT Head Brain wo Cont In Process Unspecified. EDMS 15:23 XRAY Chest (1 view) In Process Unspecified. EDMS 16:47 US Extremity Venous Unilateral Ltd In Process Unspecified. EDMS 16:47 US LE Artery Uni Ltd In Process Unspecified. EDMS 17:23 XRAY Foot LEFT 3 View In Process Unspecified. EDMS 17:57 Kendall Han MD is Hospitalizing Provider. cp 19:34 Inserted saline lock: 22 gauge in right wrist, using aseptic technique. oe 21:58 No provider procedures requiring assistance completed. Patient admitted, IV remains in jb4 place. Administered Medications: 17:10 Drug: Aspirin Chewable Tablet 324 mg Route: PO; hb 18:00 Follow up: Response: No adverse reaction eh3 17:10 Drug: vancoMYCIN 1 grams Route: IVPB; Infused Over: 2 hrs; Site: left antecubital; hb 19:36 Follow up: Response: No adverse reaction; IV Status: Completed infusion; IV Intake: jb4 250ml 17:45 Drug: Cefepime 1 grams Route: IVPB; Rate: 200 ml/hr; Infused Over: 30 mins; Site: left eh3 antecubital; 18:15 Follow up: Response: No adverse reaction; IV Status: Completed infusion; IV Intake: eh3 100ml Intake: 18:15 IV: 100ml; Total: 100ml. eh3 19:36 IV: 250ml; Total: 350ml. jb4 Outcome: 17:57 Decision to Hospitalize by Provider. cp 21:58 Admitted to Med/surg accompanied by nurse, via stretcher, room 213, with chart, Report jb4 called to JOSE LUIS Saldivar 21:58 Condition: stable 21:58 Discharge instructions given to patient, family, Instructed on the need for admit, Demonstrated understanding of instructions. 21:59 Patient left the ED. jb4 Signatures: Dispatcher [employer] Dottie Ponce Corey, PA PA cp Darlyn York, RN RN Darrick Parker RN RN jb4 Seb Akhtar Erin, JOSE LUIS RN 3
[2022-07-28] MEDS ORDERED: NA CHLORIDE 0.9% 100 ML IV ONE (19:30)
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
[2022-07-28] MEDS ORDERED: ONDANSETRON 4 MG/2 ML VIAL IV PRN (20:38)
[2022-07-28] MEDS ORDERED: ATORVASTATIN 40 MG TAB PO SCH (21:00)
[2022-07-28] MEDS ORDERED: INSULIN -REGULAR HUMAN 50 UNIT/0.5 ML ML SQ SCH (21:00)
--- NOTE | 2022-07-28 21:13 | RAD REPORT ---
EXAM DESCRIPTION: CT - Foot Left Wo Con - 07/28/2022 8:57 pm CLINICAL HISTORY: osteo left foot Pacemaker cannot have MRI COMPARISON: No comparisons FINDINGS: Significant edema and soft tissue swelling is seen involving the foot. No subcutaneous gas is present. Previous second toe amputation noted. There is soft tissue and bony amputation of the distal phalanx of the great toe. There is likely exposed bone. Ununited fracture involving the proximal phalanx of t he third toe. No soft tissue mass or hematoma. IMPRESSION: Previous second toe amputation. Soft tissue and bony amputation distal phalanx of the great toe. Exposed bone is likely present. Most likely, this would indicate osteomyelitis is present. Ununited fracture proximal phalanx third toe.
[2022-07-28 22:26] VITALS: O2SAT 99
[2022-07-28] MEDS ORDERED: QUETIAPINE 25 MG TAB PO ONE (23:00)
[2022-07-28 23:02] VITALS: BMI 28.3
[2022-07-28] MEDS ORDERED: VANCOMYCIN 1 GM in NA CHLORIDE 0.9% 250 ML IVPB ONE (23:30)
[2022-07-29 04:31] LABS: Absolute Lymphocytes (CBC) 1.4 K/uL (0.7-4.9); Hematocrit 29.6 % (39.6-49.0); Lymphocytes % 27.1 % (15.3-44.8); MCV 94.2 fL (80-100); MPV 9.4 fL (7.6-11.3); RBC Red Blood Cell Count 3.14 M/uL (4.33-5.43)
[2022-07-29 05:06] LABS: Albumin 2.6 g/dL (3.4-5.0); Bilirubin Total 0.4 mg/dL (0.2-1.0); Potassium 4.5 mmol/L (3.5-5.1); Protein, Total 5.6 g/dL (6.4-8.2); Thyroid Stimulating Hormone 2.75 uIU/mL (0.358-3.740)
[2022-07-29 05:12] LABS: Troponin High Sensitivity 109.1 pg/mL (<58.9)
[2022-07-29] MEDS ORDERED: PNEUMOCOCCAL VACCINE 0.5 ML IMVAC ONE (08:00)
[2022-07-29] MEDS ORDERED: INFLUENZA VACCINE (for 6+ mo) 0.5 ML DOSE IMVAC ONE (08:00)
[2022-07-29] MEDS ORDERED: FUROSEMIDE 20 MG/ 2ML VIAL IV SCH (09:00)
[2022-07-29] MEDS ORDERED: CEFEPIME 1 GM in NA CHLORIDE 0.9% 100 ML IV SCH (09:00)
[2022-07-29] MEDS ORDERED: QUETIAPINE 25 MG TAB PO SCH (09:00)
[2022-07-29 10:13] LABS: Absolute Lymphocytes (CBC) 1.7 K/uL (0.7-4.9); Lymphocytes % 31.1 % (15.3-44.8); MCV 94.5 fL (80-100); MPV 9.7 fL (7.6-11.3); RBC Red Blood Cell Count 3.07 M/uL (4.33-5.43)
[2022-07-29 10:17] LABS: Protime INR 1.16
--- NOTE | 2022-07-29 10:21 | RAD REPORT ---
EXAM DESCRIPTION: CT - Ct Stroke Brain Wo Cont - 07/29/2022 10:13 am CLINICAL HISTORY: Stroke Protocol Headache, drowsiness, CVA symptomology COMPARISON: Head Brain Wo Cont dated 07/28/2022; Head Brain Wo Cont dated 09/06/2018 TECHNIQUE: All CT scans are performed using dose optimization technique as appropriate and may inclu de automated exposure control or mA/KV adjustment according to patient size. FINDINGS: No intracranial hemorrhage, hydrocephalus or extra-axial fluid collection.Advanced general ized brain atrophy is present with advanced periventricular and deep white matter chronic microvascul ar ischemic changes.No areas of brain edema or evidence of midline shift. Gliosis is seen medial righ t occipital pole compatible with old infarction. Heavy atherosclerosis of the vertebrobasilar system. The paranasal sinuses and mastoids are clear. The calvarium is intact. IMPRESSION: No acute intracranial abnormality. No new finding since yesterday's study. The findings were discussed with Dr. Rodriguez on 07/29/2022 at 10:15 a.m. by telephone.
[2022-07-29 10:36] LABS: Potassium 4.6 mmol/L (3.5-5.1)
--- NOTE | 2022-07-29 12:36 | CON ---
History Of Present Illness: This is an 86-year-old male. I was consulted for evaluation of his left lower extremity cellulitis and rule out osteomyelitis. The patient has significant past medical his tory of falling 4 days prior to admission from his wheelchair. 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 Earlier this morning, patient had a COVID stroke, but now he is more alert and awake. A CT sc an did not reveal any new intracranial event. The patient had a CT scan of his left foot, which show ed previous second toe amputation, soft tissue and bony amputation. Distal phalanx of the great toe exposed bone likely would indicate osteomyelitis. The patient had a Doppler study done of his leg, s hows diffuse monophasic waveforms throughout the left lower extremity arterial system, likely related to inflow stenosis. Past Medical History: As per HPI. Social History: Nonsmoker. Drinks positive. Medications: Vancomycin and cefepime. See MAR for other medications. Allergies: IODINE, HYDROCODONE, HYDROCHLOROTHIAZIDE. Review of Systems: A 10-point review was performed. Physical Examination: General: This is an 86-year-old male, lying in bed, not in any acute cardiopulmonary distress. Vital Signs: Temperature 98.5, pulse 89, respirations 16, blood pressure 142/73. HEENT: Unremarkable. Neck: Supple. Lungs: Basal crackles. Heart: S1, S2. Regular. Abdomen: Soft, nontender. Bowel sounds present. Extremity: Left lower extremity 2+ edema with multiple areas of dry scaly skin, left big toe with la rge wound and dorsal aspect of foot has a wound also, which is possible bone exposure. Laboratory Data: Shows the patient's WBC 5.4, hemoglobin 9.7, platelets are 30. Chemistry shows BUN of 49, creatinine 1.5. Albumin level is 4.6. Micro data; blood cultures are pending. Assessment And Plan: 1.Left foot osteomyelitis and cellulitis. We will recommend to apply Betadine to the open wounds to the area and offload heel, apply moisturizing cream to the lower extremity, keep leg elevated when p ossible. Continue vancomycin and cefepime for 6 weeks as the patient is refusing amputation of the l eg. Prognosis is guarded. 2.Severe peripheral vascular disease is present. Recommend the patient to be seen by a vascular dori geon to improve the wounds. 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 Continue supportive care and wound care. We will follow the patient as needed. Thank you Dr. Rodriguez for consult. NF/MODL Voice ID: [id number] Report ID: [id number]
--- NOTE | 2022-07-29 15:12 | CON ---
Date of Consultation: 07/29/2022 Reason For Consultation: Peripheral vascular disease with unhealed ulcers. History Of Present Illness: This is an 86-year-old male, apparently is known to have significant per ipheral vascular disease, history of diabetes, hypertension, dyslipidemia, coronary artery disease, a nd CVA, presented with left lower extremity redness and pain, chronic wound on the left foot, especia lly the big toe where the bone is visible. The patient denies having any fever. Denies having any c hest pain. No nausea or vomiting or diarrhea. No other complaints. Past Medical History: As outlined above in the HPI. Medications: Refer to reconciliation sheet for detailed list. Allergies: IODINE, HYDROCODONE, HYDROCHLOROTHIAZIDE. Family History: No premature coronary artery disease or cancer. Social History: He is an ex-smoker. Does not drink, use any drugs. Past Surgical History: [id number] amputation on the right. Review of Systems: All systems reviewed and they were negative except what mentioned in HPI. Physical Examination: Vital Signs: Reviewed. Head and Neck: Pupils are equal, reactive to light. Intact eye movements. No JVD. No cervical lym phadenopathy. Neck is supple. Thyroid is not enlarged. Lungs: Clear to auscultation bilaterally. No rhonchi, wheezing, or crackles. No accessory muscle u se. Heart: Regular rate and rhythm. No extra sounds. Abdomen: Soft, nontender. Bowel sounds positive. No organomegaly. No masses or hernia. No rigidi ty or rebound. Extremities: There is edema of the left lower extremity with black discoloration of the big toe with the bone being visible, presenting chronic osteomyelitis and dry gangrene. Skin: No rash. Neurologic: Alert, awake, oriented x3. No acute focal deficits appreciated. Investigations: BUN 49, creatinine 1.57. Troponin 109 and hemoglobin 9.7, platelet is 30,000. The arterial Doppler of left lower extremity showed diffuse monophasic waveforms throughout the left lowe r extremity, likely related to inflow stenosis. Assessment And Recommendations: 1.Nonhealing ulcer of the left lower extremity, likely with severe peripheral vascular disease. Art erial Doppler showed a finding suggestive of inflow obstruction. Recommend peripheral angiogram, how ever, initially to treat with IV antibiotics to control infection and also like to wait until his kid roosevelt function is stabilized and then we will plan for peripheral angiogram later this week. Also erin mmend to consult Surgery. This patient might have severe diffuse peripheral vascular disease that is not amenable to intervention; however, we will find out more details once we do the peripheral angio gram. He might require another above or below-knee amputation based on the peripheral angiogram find ings. 2.Elevated troponin. This is demand ischemia. No further cardiac workup is needed. /ANUELL Voice ID: [id number] Report ID: [id number]
--- NOTE | 2022-07-29 16:06 | EKG ---
Test Date: 2022-07-28 Test Time: 14:08:49 Skin Therapist: AKBAR MEASUREMENT RESULTS: Intervals: Rate: 91 NV: 154 QRSD: 140 QT: 400 QTc: 492 [place]it: P: 71 NV: 154 QRS: 73 T: -42 INTERPRETIVE STATEMENTS: Atrial-sensed ventricular-paced rhythm Abnormal ECG Compared to ECG 09/06/2018 19:32:54 Sinus rhythm no longer present Ventricular premature complex(es) no longer present T-wave abnormality no longer present Electronically Signed On 07-29-22 16:05:13 THIRD STEEL POURER by Hua Daily
[2022-07-29 16:26] VITALS: BP 160/77; TEMP 97.8
[2022-07-29] MEDS ORDERED: VANCOMYCIN 1.25 GM in NA CHLORIDE 0.9% 250 ML IVPB SCH (17:00)
[2022-07-30] MEDS ORDERED: VANCOMYCIN 2 GM in NA CHLORIDE 0.9% 500 ML IVPB SCH (12:00)
[2022-07-31 13:19] LABS: Urine Blood Negative (Negative); Urine Glucose Negative (Negative); Urine Protein Negative (Negative); Urine pH 5.5 (5.0-7.0)
--- NOTE | 2022-08-01 17:54 | EKG ---
Test Date: 2022-07-28 Test Time: 14:15:48 Rim Roller Setter: AKBAR MEASUREMENT RESULTS: Intervals: Rate: 61 LA: 210 QRSD: 72 QT: 408 QTc: 410 [place]: P: 25 LA: 210 QRS: 16 T: 111 INTERPRETIVE STATEMENTS: Atrial-paced rhythm with prolonged AV conduction Septal infarct, age undetermined ST & T wave abnormality, consider lateral ischemia Abnormal ECG Compared to ECG 07/28/2022 14:09:22 Myocardial infarct finding now present ST (T wave) deviation now present Possible ischemia now present Atrial-sensed ventricular-paced complex(es) or rhythm no longer present Electronically Signed On 08-01-22 17:47:53 BUSINESS ANALYTICS MANAGER by Hua Daily
--- NOTE | 2022-08-01 17:55 | EKG ---
Test Date: 2022-07-28 Test Time: 14:09:22 Cattle Tester: AKBAR MEASUREMENT RESULTS: Intervals: Rate: 91 LA: 168 QRSD: 114 QT: 372 QTc: 457 [place]: P: 76 LA: 168 QRS: 75 T: 196 INTERPRETIVE STATEMENTS: Atrial-sensed ventricular-paced rhythm Abnormal ECG Compared to ECG 07/28/2022 14:08:49 No significant changes Electronically Signed On 08-01-22 17:47:56 PHYSICIST CRYOGENICS by Hua Daily
== END 2022-07-29 17:50 | disposition left against medical advice (07) | DRG 603 ==
LOC: ER 13:15 → ERHOLD 19:13 → 2ND 20:22
PROVIDERS: ADMIT Hospitalist; ATTEND Hospitalist
DX: L03.116 Cellulitis of left lower limb (principal); I24.8 Other forms of acute ischemic heart disease; N17.9 Acute kidney failure, unspecified; M86.8X7 Other osteomyelitis, ankle and foot; E11.69 Type 2 diabetes mellitus with other specified complication; E11.40 Type 2 diabetes mellitus with diabetic neuropathy, unspecified; E11.51 Type 2 diabetes mellitus with diabetic peripheral angiopathy without gangrene; E11.621 Type 2 diabetes mellitus with foot ulcer; L97.529 Non-pressure chronic ulcer of other part of left foot with unspecified severity; D63.8 Anemia in other chronic diseases classified elsewhere; D69.6 Thrombocytopenia, unspecified; I10 Essential (primary) hypertension; E78.5 Hyperlipidemia, unspecified; I25.10 Atherosclerotic heart disease of native coronary artery without angina pectoris; Z88.5 Allergy status to narcotic agent; Z79.4 Long term (current) use of insulin; Z88.8 Allergy status to other drugs, medicaments and biological substances; Z86.73 Personal history of transient ischemic attack (TIA), and cerebral infarction without residual deficits; Z53.29 Procedure and treatment not carried out because of patient's decision for other reasons; Z96.612 Presence of left artificial shoulder joint; Z96.653 Presence of artificial knee joint, bilateral; Z89.611 Acquired absence of right leg above knee; Z79.899 Other long term (current) drug therapy; Z87.891 Personal history of nicotine dependence; Z89.021 Acquired absence of right finger(s); Z95.810 Presence of automatic (implantable) cardiac defibrillator; Z20.822 Contact with and (suspected) exposure to COVID-19
CPT/HCPCS: 0240U; 36415; 70450; 71045; 73700; 80048; 80053; 80076; 81003; 81015; 82947; 83036; 83605; 83735; 83880; 84145; 84439; 84443; 84484; 85025; 85610; 85730; 86900; 86901; 87040; 87070; 87205; 93005; 93926; 93971; 96365; 99285; J0692; J1940; J3370; J7050